=== PATIENT | male | born 1950 | race Caucasian/White ===

== ENCOUNTER → 2016-04-21 | Outpatient (CLI) | payer BC ==
--- NOTE | 2016-04-21 08:26 | XR ---
EXAMINATION TYPE: XR chest 2V DATE OF EXAM: 04/21/2016 7:24 AM COMPARISON: 03/02/2010 HISTORY: 66-year-old male cough and congestion for several days TECHNIQUE: Frontal and lateral views FINDINGS: The cardiomediastinal silhouette, aorta, and pulmonary vasculature are within normal limits. Slight p eribronchial cuffing centrally. Otherwise, lungs and pleural spaces are clear. IMPRESSION: Slight peribronchial cuffing may represent bronchitis or chronic asthma. Otherwise, no acute cardiopu lmonary process.
== END | disposition home or self-care (01) ==
LOC: RADXRMAIN 07:08
PROVIDERS: ATTEND Family Medicine
DX: J98.09 Other diseases of bronchus, not elsewhere classified (principal); R05 Cough
CPT/HCPCS: 71020

== ENCOUNTER → 2017-05-16 | Outpatient (CLI) | payer MEDICARE ==
--- NOTE | 2017-05-16 08:38 | US ---
EXAMINATION TYPE: US duplex aorta DATE OF EXAM: 05/16/2017 COMPARISON: NONE CLINICAL HISTORY: [id number] Screening for Abdominal aortic aneurysm; Controlled HTN per patient. EXAM MEASUREMENTS: Abdominal Aorta: Proximal: 2.0cm A/P Mid: 2.0cm A/P Distal: 1.9cm Transverse Bifurcation: 1.2cm Right CHOCO Transverse; 1.2cm Left CHOCO A/P Mild intimal thickening is noted in left Common Iliac Artery. Pulse Wave Doppler waveform is document ed in distal aorta. IMPRESSION: No sonographic evidence of abdominal aortic aneurysm. Minimal atherosclerosis of the left common iliac artery.
== END | disposition home or self-care (01) ==
LOC: RADUSWWP 06:55
PROVIDERS: ATTEND Family Medicine
DX: Z13.6 Encounter for screening for cardiovascular disorders (principal); Z87.891 Personal history of nicotine dependence
CPT/HCPCS: 93979

== ENCOUNTER 2020-03-21 01:52 | Emergency (ER) | payer MEDICARE ==
[2020-03-21 02:13] VITALS: TEMP 100.5
--- NOTE | 2020-03-21 02:47 | XR ---
EXAM: XR Chest, 2 Views CLINICAL HISTORY: ITS.REASON XR Reason: fever TECHNIQUE: Frontal and lateral views of the chest. COMPARISON: 04/21/2016. FINDINGS: Lungs: Unremarkable. No consolidation. Pleural space: Unremarkable. No pneumothorax. Heart: Unremarkable. No cardiomegaly. Mediastinum: Unremarkable. Bones/joints: Old right mid clavicular fracture deformity. IMPRESSION: No evidence of acute cardiopulmonary disease.
[2020-03-21 02:50] LABS: Basophils # (A) 0.1 k/uL (0-0.2); Basophils % (A) 1 %; Eosinophils # (A) 0.1 k/uL (0-0.7); Eosinophils % (A) 1 %; HCT 41.7 % (39.0-53.0); HGB 14.7 gm/dL (13.0-17.5); Lymphocytes # (A) 0.5 k/uL (1.0-4.8); Lymphocytes % (A) 5 %; MCH 32.5 pg (25.0-35.0); MCHC 35.1 g/dL (31.0-37.0); MCV 92.4 fL (80.0-100.0); Mean Platelet Volume 7.2; Monocytes # (A) 0.8 k/uL (0-1.0); Monocytes % (A) 9 %; Neutrophils # (A) 7.6 k/uL (1.3-7.7); Neutrophils % (A) 81 %; Platelet Count 146 k/uL (150-450); RBC 4.52 m/uL (4.30-5.90); WBC 9.3 k/uL (3.8-10.6)
[2020-03-21 03:03] LABS: Albumin 3.8 g/dL (3.5-5.0); Calcium 8.9 mg/dL (8.4-10.2); Total Bilirubin 0.8 mg/dL (0.2-1.3); Total Protein 6.4 g/dL (6.3-8.2)
[2020-03-21 03:14] LABS: Appearance,Urine Clear (Clear); Bilirubin,Urine Negative (Negative); Blood,Urine Small (Negative); Color,Urine Yellow; Glucose,Urine (UA) Negative (Negative); Ketones,Urine Trace (Negative); Leukocyte Esterase,Urine Negative (Negative); Mucus,Urine Rare /hpf; Nitrite,Urine Negative (Negative); PH, Urine 6.5 (5.0-8.0); Protein,Urine 1+ (Negative); RBC,Urine 2 /hpf (0-5); Specific Gravity,Urine 1.022 (1.001-1.035); WBC,Urine <1 /hpf (0-5)
[2020-03-21 03:25] VITALS: RESP 16
--- NOTE | 2020-03-21 03:36 | ED ---
Chest Pain HPI - General Chief Complaint: Chest Pain Stated Complaint: Chest Pain Time Seen by Provider: 03/21/20 02:17 Source: patient Mode of arrival: ambulatory Limitations: no limitations - History of Present Illness MD Complaint: chest pain Onset/Timin -: days(s) Onset: during rest Pain Location: substernal Pain Radiation: none Quality: dull Consistency: constant Improves With: nothing Worsens With: inspiration - Related Data Home Medications Medication Instructions Recorded Confirmed Acetaminophen/Diphenhydramine 1 tab PO HS 03/22/20 03/22/20 [Tylenol PM 500-25mg] Aspirin EC [Ecotrin Low Dose] 81 mg PO DAILY 03/22/20 03/22/20 Atorvastatin Calcium [Lipitor] 40 mg PO DAILY 03/22/20 03/22/20 Losartan Potassium [Cozaar] 100 mg PO DAILY 03/22/20 03/22/20 Omeprazole 40 mg PO DAILY 03/22/20 03/22/20 amLODIPine [Norvasc] 10 mg PO DAILY 03/22/20 03/22/20 Allergies Allergy/AdvReac Type Severity Reaction Status Date / Time No Known Allergies Allergy Verified 03/22/20 07:57 Review of Systems ROS Statement: Those systems with pertinent positive or pertinent negative responses have been documented in the HPI. ROS Other: All systems not noted in ROS Statement are negative. Constitutional: Denies: fever, chills Respiratory: Denies: cough, dyspnea Cardiovascular: Reports: chest pain. Denies: palpitations, orthopnea, edema, syncope Gastrointestinal: Denies: abdominal pain, nausea, vomiting Genitourinary: Denies: dysuria, hematuria Musculoskeletal: Denies: back pain Skin: Denies: rash Neurological: Denies: headache, weakness, numbness Past Medical History Past Medical History: Hyperlipidemia, Hypertension, Myocardial Infarction (CT) History of Any Multi-Drug Resistant Organisms: None Reported Past Surgical History: No Surgical Hx Reported Past Psychological History: No Psychological Hx Reported Smoking Status: Never smoker Past Alcohol Use History: None Reported Past Drug Use History: None Reported General Exam Limitations: no limitations General appearance: alert, in no apparent distress Head exam: Present: atraumatic, normocephalic Eye exam: Present: normal appearance. Absent: scleral icterus, conjunctival injection ENT exam: Present: normal oropharynx Neck exam: Present: normal inspection Respiratory exam: Present: normal lung sounds bilaterally. Absent: respiratory distress, wheezes, rales, rhonchi, stridor, chest wall tenderness Cardiovascular Exam: Present: regular rate, normal rhythm, normal heart sounds. Absent: systolic murmur, diastolic murmur, rubs, gallop GI/Abdominal exam: Present: soft. Absent: distended, tenderness, guarding, rebound, rigid, mass Extremities exam: Present: normal inspection, normal capillary refill. Absent: pedal edema, calf tenderness Back exam: Present: normal inspection. Absent: CVA tenderness (R), CVA tenderness (L) Neurological exam: Present: alert Skin exam: Present: warm, dry, intact, normal color. Absent: rash Course Vital Signs 03/21/20 03/21/20 03/21/20 02:06 03:24 03:49 Temperature 100.5 F H Pulse Rate 89 80 78 Respiratory 19 16 16 Rate Blood Pressure 168/80 146/73 137/74 O2 Sat by Pulse 95 97 98 Oximetry Chest Pain MDM - MDM This patient is 70-year-old man with fever and some chest tightness. I discussed admission for telemetry monitoring, serial cardiac enzymes, and cardiology consultation. I do suspect that given the duration of symptoms, the patient probably would have a positive troponin were this cardiac related but we discussed that this is impossible rule out with just the testing to this point. Discussed appropriate further care and follow-up. Patient does have stress test scheduled for April, and he will call Dr. Payne's office on Sunday to see if this can be moved up. Discussed appropriate coronavirus precautions. Disposition Clinical Impression: Chest pain, Fever Disposition: HOME SELF-CARE Condition: Good Instructions (If sedation given, give patient instructions): Chest Pain (ED), Fever in Adults (ED) Additional Instructions: As we discussed, maintain social distancing until receiving your test results. Return immediately if any of the symptoms discussed develop or if your worsening in anyway. Is patient prescribed a controlled substance at d/c from ED?: No Referrals: Robbie Paredes [Primary Care Provider] - 1-2 days Danish Payne MD [STAFF PHYSICIAN] - 1-2 days
[2020-03-21 03:51] VITALS: BP 137/74; PULSE 78
== END 2020-03-21 03:43 | disposition home or self-care (01) ==
LOC: EC 01:52
DX: R07.89 Other chest pain (principal); R50.9 Fever, unspecified; I10 Essential (primary) hypertension; E78.5 Hyperlipidemia, unspecified; I25.2 Old myocardial infarction; Z20.822 Contact with and (suspected) exposure to COVID-19; Z79.899 Other long term (current) drug therapy; Z79.82 Long term (current) use of aspirin
CPT/HCPCS: 36415; 93005; 80053; 83605; 84484; 85025; 81001; 87040; 71046; 99285; U0003; U0005

== ENCOUNTER 2020-03-22 07:06 | Inpatient (IN) | payer MEDICARE ==
[2020-03-22] MEDS ORDERED: SODIUM CHLORIDE 0.9% 1,000 ML IV STA (07:26)
[2020-03-22] MEDS ORDERED: NITROGLYCERIN SL TABS 0.4 MG TAB SUBLINGUAL STA (07:26)
[2020-03-22] MEDS ORDERED: ASPIRIN 81 MG PO STA (07:26)
--- NOTE | 2020-03-22 07:37 | ED ---
General Adult HPI - General Source: patient, RN notes reviewed Mode of arrival: ambulatory Limitations: no limitations <Joni Ramirez - Last Filed: 03/22/20 09:28> <Romero Westfall - Last Filed: 03/22/20 09:45> - General Chief complaint: Chest Pain Stated complaint: Chest Pain, ANDREY Time Seen by Provider: 03/22/20 07:15 - History of Present Illness Initial comments: Patient 70-year-old male presented to the emergency room today with a chief complaint of chest pain. Patient does admit that he woke up around midnight. He states she's been feeling a pressure-like pain middle of the chest radiating across. He states when he takes deep breath does feel like it increases. He states had some similar symptoms off and on over the last week was seen here in the emergency room yesterday for this. Patient denies any known contacts for covid 19. Patient denies any other complaints or symptoms currently. Patient denies any recent fever, chills, shortness of breath, back pain, abdominal pain, nausea or vomiting, numbness or tingling, dysuria or hematuria, constipation or diarrhea, headaches or visual changes, or any other complaints. (Joni Ramirez) - Related Data Home Medications Medication Instructions Recorded Confirmed Acetaminophen/Diphenhydramine 1 tab PO HS 03/22/20 03/22/20 [Tylenol PM 500-25mg] Aspirin EC [Ecotrin Low Dose] 81 mg PO DAILY 03/22/20 03/22/20 Atorvastatin Calcium [Lipitor] 40 mg PO DAILY 03/22/20 03/22/20 Losartan Potassium [Cozaar] 100 mg PO DAILY 03/22/20 03/22/20 Omeprazole 40 mg PO DAILY 03/22/20 03/22/20 amLODIPine [Norvasc] 10 mg PO DAILY 03/22/20 03/22/20 Allergies Allergy/AdvReac Type Severity Reaction Status Date / Time No Known Allergies Allergy Verified 03/22/20 07:57 Review of Systems ROS Other: All systems not noted in ROS Statement are negative. <Joni Ramirez - Last Filed: 03/22/20 09:28> ROS Other: All systems not noted in ROS Statement are negative. <Romero Westfall - Last Filed: 03/22/20 09:45> ROS Statement: Those systems with pertinent positive or pertinent negative responses have been documented in the HPI. Past Medical History Past Medical History: Hyperlipidemia, Hypertension, Myocardial Infarction (ND) History of Any Multi-Drug Resistant Organisms: None Reported Past Surgical History: No Surgical Hx Reported Past Psychological History: No Psychological Hx Reported Smoking Status: Never smoker Past Alcohol Use History: None Reported Past Drug Use History: None Reported <RamirezJoni - Last Filed: 03/22/20 09:28> General Exam Limitations: no limitations <RamirezJoni - Last Filed: 03/22/20 09:28> - General Exam Comments Initial Comments: General: The patient is awake and alert, in no distress, and does not appear acutely ill. Eye: extra-ocular movements are intact. There is normal conjunctiva bilaterally. No signs of icterus. Ears, nose, mouth and throat: There are moist mucous membranes and no oral lesions. Neck: The neck is supple, there is no tenderness or JVD. Cardiovascular: There is a regular rate and rhythm. No murmur, rub or gallop is appreciated. Respiratory: Lungs are clear to auscultation, respirations are non-labored, breath sounds are equal. No wheezes, stridor, rales, or rhonchi. Musculoskeletal: Normal ROM, no tenderness. Strength 5/5. Sensation intact. Neurological: A&O x 3. CN II-XII intact, There are no obvious motor or sensory deficits. Coordination appears grossly intact. Speech is normal. Skin: Skin is warm and dry and no rashes or lesions are noted. Psychiatric: Cooperative, appropriate mood & affect, normal judgment. (Joni Ramirez) Course <Romero Westfall - Last Filed: 03/22/20 09:45> Vital Signs 03/22/20 03/22/20 03/22/20 07:10 07:26 09:06 Temperature 100.0 F H Pulse Rate 92 81 Pulse Rate [ 87 Acid Supervisor ] Respiratory 18 16 Rate Blood Pressure 129/73 103/59 O2 Sat by Pulse 95 98 Oximetry - Reevaluation(s) Reevaluation #1: 03/22/20 09:44 PA supervision: I did personally do a [id number] evaluation patient did present with complaints of chest pain. The complaints that are more pleuritic. He had previously been seen here within the last day for similar complaints. He is noted have a low-grade temperature today. He does have an elevated white blood cell count with left shift. Initial viral testing is negative. I did discuss case with Dr. Reynolds. The patient will be (Romero Westfall) EKG Findings - EKG Comments: EKG Findings:: EKG performed: 719. Normal sinus rhythm at 87 bpm. RI interval 190. QRS 102. QT/QTc 350/421. No acute ST changes. <Joni Ramirez - Last Filed: 03/22/20 09:28> Medical Decision Making - Lab Data Result diagrams: 03/22/20 07:29 03/22/20 07:29 <Joni Ramirez - Last Filed: 03/22/20 09:28> - Lab Data Result diagrams: 03/22/20 07:29 03/22/20 07:29 <Romero Westfall - Last Filed: 03/22/20 09:45> - Medical Decision Making Patient reexamined at this time is resting comfortable. He does admit to relief after sublingual nitroglycerin. Patient's chest x-rays been reviewed unremarkable. He did have a CT of his chest as he had a mildly elevated d- dimer. CT of the chest is negative. Patient's troponin negative. Patient will be admitted for unstable angina and further evaluation with serial troponins. (Joni Ramirez) - Lab Data Lab Results 03/22/20 03/22/20 03/22/20 Range/Units 07:29 07:29 07:29 WBC 12.5 H (3.8-10.6) k/uL RBC 4.45 (4.30-5.90) m/uL Hgb 14.2 (13.0-17.5) gm/dL Hct 40.8 (39.0-53.0) % MCV 91.8 (80.0-100.0) fL MCH 32.0 (25.0-35.0) pg MCHC 34.8 (31.0-37.0) g/dL RDW 12.8 (11.5-15.5) % Plt Count 153 (150-450) k/uL MPV 7.6 Neutrophils % 88 % Lymphocytes % 2 % Monocytes % 6 % Eosinophils % 1 % Basophils % 1 % Neutrophils # 11.1 H (1.3-7.7) k/uL Lymphocytes # 0.3 L (1.0-4.8) k/uL Monocytes # 0.7 (0-1.0) k/uL Eosinophils # 0.2 (0-0.7) k/uL Basophils # 0.1 (0-0.2) k/uL PT 12.3 H (9.0-12.0) sec INR 1.2 H (<1.2) APTT 25.1 (22.0-30.0) sec D-Dimer 1.43 H (<0.60) mg/L FEU Sodium 131 L (137-145) mmol/L Potassium 3.7 (3.5-5.1) mmol/L Chloride 101 (98-107) mmol/L Carbon Dioxide 21 L (22-30) mmol/L Anion Gap 9 mmol/L BUN 18 (9-20) mg/dL Creatinine 1.04 (0.66-1.25) mg/dL Est GFR (CKD-EPI)AfAm 85 (>60 ml/min/1.73 sqM) Est GFR (CKD-EPI)NonAf 74 (>60 ml/min/1.73 sqM) Glucose 130 H (74-99) mg/dL Calcium 8.6 (8.4-10.2) mg/dL Magnesium 1.5 L (1.6-2.3) mg/dL Total Bilirubin 1.1 (0.2-1.3) mg/dL AST 49 (17-59) U/L ALT 81 H (4-49) U/L Alkaline Phosphatase 167 H (38-126) U/L Troponin I (0.000-0.034) ng/mL Total Protein 6.5 (6.3-8.2) g/dL Albumin 3.7 (3.5-5.0) g/dL Urine Color Urine Appearance (Clear) Urine pH (5.0-8.0) Ur Specific [place] (1.001-1.035) Urine Protein (Negative) Urine Glucose (UA) (Negative) Urine Ketones (Negative) Urine Blood (Negative) Urine Nitrite (Negative) Urine Bilirubin (Negative) Urine Urobilinogen (<2.0) mg/dL Ur Leukocyte Esterase (Negative) Urine RBC (0-5) /hpf Urine WBC (0-5) /hpf Ur Squamous Epith Cells (0-4) /hpf Urine Mucus (None) /hpf Coronavirus (PCR) (Not Detectd) 03/22/20 03/22/20 03/22/20 Range/Units 07:29 07:33 08:16 WBC (3.8-10.6) k/uL RBC (4.30-5.90) m/uL Hgb (13.0-17.5) gm/dL Hct (39.0-53.0) % MCV (80.0-100.0) fL MCH (25.0-35.0) pg MCHC (31.0-37.0) g/dL RDW (11.5-15.5) % Plt Count (150-450) k/uL MPV Neutrophils % % Lymphocytes % % Monocytes % % Eosinophils % % Basophils % % Neutrophils # (1.3-7.7) k/uL Lymphocytes # (1.0-4.8) k/uL Monocytes # (0-1.0) k/uL Eosinophils # (0-0.7) k/uL Basophils # (0-0.2) k/uL PT (9.0-12.0) sec INR (<1.2) APTT (22.0-30.0) sec D-Dimer (<0.60) mg/L FEU Sodium (137-145) mmol/L Potassium (3.5-5.1) mmol/L Chloride (98-107) mmol/L Carbon Dioxide (22-30) mmol/L Anion Gap mmol/L BUN (9-20) mg/dL Creatinine (0.66-1.25) mg/dL Est GFR (CKD-EPI)AfAm (>60 ml/min/1.73 sqM) Est GFR (CKD-EPI)NonAf (>60 ml/min/1.73 sqM) Glucose (74-99) mg/dL Calcium (8.4-10.2) mg/dL Magnesium (1.6-2.3) mg/dL Total Bilirubin (0.2-1.3) mg/dL AST (17-59) U/L ALT (4-49) U/L Alkaline Phosphatase (38-126) U/L Troponin I 0.024 (0.000-0.034) ng/mL Total Protein (6.3-8.2) g/dL Albumin (3.5-5.0) g/dL Urine Color Yellow Urine Appearance Clear (Clear) Urine pH 6.0 (5.0-8.0) Ur Specific [place] 1.023 (1.001-1.035) Urine Protein 1+ H (Negative) Urine Glucose (UA) Negative (Negative) Urine Ketones 1+ H (Negative) Urine Blood Small H (Negative) Urine Nitrite Negative (Negative) Urine Bilirubin Negative (Negative) Urine Urobilinogen 2.0 (<2.0) mg/dL Ur Leukocyte Esterase Negative (Negative) Urine RBC 1 (0-5) /hpf Urine WBC 1 (0-5) /hpf Ur Squamous Epith Cells <1 (0-4) /hpf Urine Mucus Rare H (None) /hpf Coronavirus (PCR) Not Detected (Not Detectd) Disposition Is patient prescribed a controlled substance at d/c from ED?: No Time of Disposition: 09:30 <Joni Ramirez - Last Filed: 03/22/20 09:28> <Romero Westfall - Last Filed: 03/22/20 09:45> Clinical Impression: Unstable angina Disposition: ADMITTED IP TO THIS HOSP Condition: Stable Referrals: Robbie Paredes [Primary Care Provider] - 1-2 days
[2020-03-22 07:38] LABS: Basophils # (A) 0.1 k/uL (0-0.2); Basophils % (A) 1 %; Eosinophils # (A) 0.2 k/uL (0-0.7); Eosinophils % (A) 1 %; HCT 40.8 % (39.0-53.0); HGB 14.2 gm/dL (13.0-17.5); Lymphocytes # (A) 0.3 k/uL (1.0-4.8); Lymphocytes % (A) 2 %; MCHC 34.8 g/dL (31.0-37.0); MCV 91.8 fL (80.0-100.0); Mean Platelet Volume 7.6; Monocytes # (A) 0.7 k/uL (0-1.0); Monocytes % (A) 6 %; Neutrophils # (A) 11.1 k/uL (1.3-7.7); Neutrophils % (A) 88 %; Platelet Count 153 k/uL (150-450); RBC 4.45 m/uL (4.30-5.90); RDW 12.8 % (11.5-15.5); WBC 12.5 k/uL (3.8-10.6)
[2020-03-22 07:48] LABS: Albumin 3.7 g/dL (3.5-5.0); Calcium 8.6 mg/dL (8.4-10.2); Magnesium 1.5 mg/dL (1.6-2.3); Potassium 3.7 mmol/L (3.5-5.1); Total Bilirubin 1.1 mg/dL (0.2-1.3); Total Protein 6.5 g/dL (6.3-8.2)
[2020-03-22 08:00] LABS: INR 1.2 (<1.2); Partial Thromboplastin Time 25.1 sec (22.0-30.0); Prothrombin Time 12.3 sec (9.0-12.0)
--- NOTE | 2020-03-22 08:01 | XR ---
EXAMINATION TYPE: XR chest 1V portable DATE OF EXAM: 03/22/2020 Comparison: 03/21/2020 Clinical History: 70-year-old male chest pain Findings: Heart upper limits of normal in size. Aorta and pulmonary vasculature within normal limits. No consol idation or pleural effusion. Hazy lung densities relating to overlying soft tissue. Possible old heal ed fracture deformity right mid clavicular shaft. Impression: No definite acute cardiopulmonary process.
[2020-03-22 08:07] LABS: D-Dimer 1.43 mg/L FEU (<0.60)
[2020-03-22 08:27] LABS: Appearance,Urine Clear (Clear); Bilirubin,Urine Negative (Negative); Blood,Urine Small (Negative); Color,Urine Yellow; Glucose,Urine (UA) Negative (Negative); Ketones,Urine 1+ (Negative); Leukocyte Esterase,Urine Negative (Negative); Mucus,Urine Rare /hpf; Nitrite,Urine Negative (Negative); Protein,Urine 1+ (Negative); RBC,Urine 1 /hpf (0-5); Specific Gravity,Urine 1.023 (1.001-1.035); Squamous Epithelial Cell,Urine <1 /hpf (0-4); WBC,Urine 1 /hpf (0-5)
--- NOTE | 2020-03-22 08:57 | CT ---
EXAMINATION TYPE: CT angio chest DATE OF EXAM: 03/22/2020 COMPARISON: None HISTORY: PE, SOB, Chest pain CT DLP: 438.1 mGycm CONTRAST: CT chest with contrast and 3D reconstruction with MIP imaging is performed without and with IV Contra st, patient injected with 100 ml mL of Isovue 370. Contrast-enhanced CT of the chest was performed through the course of the pulmonary arteries with vito g and mediastinal window settings submitted. 3D reconstruction with MIP imaging was also performed. PULMONARY ARTERIES: The pulmonary arteries and their major tributaries are patent. I do not see fred dence for sizable filling defect to suggest pulmonary embolic process. LUNGS: The lungs are clear and free of infiltrate. Left basilar atelectasis mild in degree. No pulmon queenie nodule or mass is detected. No pleural effusion. MEDIASTINUM: Thoracic aorta is of normal caliber,however, evaluation is limited given timing of the contrast bolus. If there is concern for thoracic aortic pathology consider RAMAN. Correlate clinicall y . The heart is not enlarged. No evidence for mediastinal mass. No mediastinal lymph nodes greater than 1cm. HILAR STRUCTURES: No evidence for mass. No hilar lymph nodes greater than 1 cm. UPPER ABDOMEN: Small sliding-type hiatal hernia. Small gallstones identified. IMPRESSION: 1. No evidence for Pulmonary embolism at this time.
[2020-03-22] MEDS ORDERED: NITROGLYCERIN SL TABS 0.4 MG TAB SUBLINGUAL PRN (09:34)
[2020-03-22] MEDS ORDERED: NON FORMULARY DRUG (Aspirin Ec 81 MG Tablet.Dr) PO SCH (11:00)
[2020-03-22] MEDS: PANTOPRAZOLE 40 MG TABLET PO SCH (11:27)
[2020-03-22] MEDS ORDERED: ONDANSETRON 4 MG/2 ML VIAL IVP PRN (11:45)
[2020-03-22] MEDS ORDERED: NALOXONE 0.4 MG/ML 1 ML VIAL IV PRN (11:45)
--- NOTE | 2020-03-22 12:20 | P.CRDCN ---
History of Present Illness Consult date: 03/22/20 History of present illness: CHIEF COMPLAINT: Chest pain HISTORY OF PRESENT ILLNESS: This is a 70-year-old male with a past medical history significant for hypertension, hyperlipidemia, and former nicotine dependence. Patient follows in the office with Dr. Payne. We have been asked to see the patient in consultation for chest pain. Patient examined at the bedside. Patient states he has been having chest pain on and off for the past week. The patient was also evaluated yesterday 03/21/2020 in the emergency room for chest pain. He was discharged home from the emergency room in stable condition. Patient states last week he was hunting and shot a coyote. He states he had to drag the coyote about 3/4 of a mile with his left arm while he had approximately 20 pounds of gear in his backpack. He states this is normal h unting gear that he carries every time and was not heavier than usual. He states the distance that he walked was not unusual for him either. He states he began to have some chest tightness while he was walking which resolved once he was at rest. He states over the following week he has been experiencing bilateral chest discomfort with deep inspiration. He states he does not have any pain when he is breathing normally. He denies any radiation of the pain. He denies any shortness of breath. Denies dizziness or lightheadedness. Denies nausea or vomiting. He states the pain is not worse with movement. He denies having any discomfort with chest wall palpation. DIAGNOSTICS: EKG reveals sinus mechanism with no signs of acute ischemia Chest xray negative for acute process Chest CTA: Negative for pulmonary emboli Laboratory data: WBC 12.5. Hemoglobin 14.2. Platelet count 153. Neutrophil count 11.1. D-dimer 1.43. Sodium 131. Potassium 3.7. BUN 18. Creatinine 1.04. Magnesium 1.5. Troponin negative 2. Current home cardiac medications include aspirin 81 mg daily, Norvasc 10 mg daily, losartan 100 mg daily, Lipitor 40 mg daily REVIEW OF SYSTEMS: At the time of my exam: CONSTITUTIONAL: Denies fever or chills. HEENT: Denies blurred vision, vision changes, or eye pain. Denies hemoptysis CARDIOVASCULAR: Reports chest pain with deep inspiration. Denies orthopnea, PND or palpitations RESPIRATORY: No shortness of breath. GASTROINTESTINAL: Denies abdominal pain. Denies nausea or vomiting. HEMATOLOGIC: Denies bleeding disorders. GENITOURINARY: Denies any blood in urine. SKIN: Denies pruitis. Denies rash. PHYSICAL EXAM: VITAL SIGNS: Reviewed. GENERAL: Well-developed in no acute distress. HEENT: Head is normocephalic. Pupils are equal, round. Sclerae anicteric. Mucous membranes of the mouth are moist. Neck supple. No JVD or thyromegaly LUNGS: Respirations even and unlabored. Lungs essentially clear to auscultation bilaterally. HEART: Regular rate and rhythm. S1 and S2 heard. No chest wall tenderness with palpation. ABDOMEN: Soft. Nondistended. Nontender. EXTREMITIES: Normal range of motion. No clubbing or cyanosis. Peripheral pulses intact. No lower extremity edema NEUROLOGIC: Awake and alert. Oriented x 3. ASSESSMENT: Chest pain, atypical, appears pleuritic in nature Leukocytosis with fever, rule out infectious process Elevated d-dimer, CT negative for PE Hypertension Hyperlipidemia Former nicotine dependence Hypomagnesemia Hyponatremia PLAN: An acute coronary event has been ruled out Further workup of leukocytosis and fever per internal medicine Decrease aspirin to 81mg Resume home cardiac medications Continue to trend troponins Obtain 2D echo to assess cardiac structure and function Replace magnesium Further recommendations pending patient course Nurse practitioner note has been reviewed by physician. Signing provider agrees with the documented findings, assessment, and plan of care. Past Medical History Past Medical History: GERD/Reflux, Hyperlipidemia, Hypertension, Myocardial Infarction (HI), Renal Disease Additional Past Medical History / Comment(s): Mild HI per EKG, lower back pain/2 herniated discs and vertebrae cracked, cervical pain since diving injury, pt has passed renal stones. Last Myocardial Infarction Date:: unkn History of Any Multi-Drug Resistant Organisms: None Reported Past Surgical History: Orthopedic Surgery Additional Past Surgical History / Comment(s): L knee arthroscopy, colonoscopy Past Anesthesia/Blood Transfusion Reactions: No Reported Reaction Smoking Status: Former smoker - Past Family History Father Family Medical History: Liver Disease Additional Family Medical History / Comment(s): Father of liver cirrhosis. Mother Family Medical History: Cancer Additional Family Medical History / Comment(s): Mother of lung cancer. She was a smoker. Brother(s) Family Medical History: Coronary Artery Disease (CAD) Additional Family Medical History / Comment(s): Brother had a HI at the age of 46 yrs. Medications and Allergies Home Medications Medication Instructions Recorded Confirmed Type Acetaminophen/Diphenhydramine 1 tab PO HS 03/22/20 03/22/20 History [Tylenol PM 500-25mg] Aspirin EC [Ecotrin Low Dose] 81 mg PO DAILY 03/22/20 03/22/20 History Atorvastatin Calcium [Lipitor] 40 mg PO DAILY 03/22/20 03/22/20 History Losartan Potassium [Cozaar] 100 mg PO DAILY 03/22/20 03/22/20 History Omeprazole 40 mg PO DAILY 03/22/20 03/22/20 History amLODIPine [Norvasc] 10 mg PO DAILY 03/22/20 03/22/20 History Allergies Allergy/AdvReac Type Severity Reaction Status Date / Time No Known Allergies Allergy Verified 03/22/20 07:57 Physical Exam Vitals: Vital Signs Temp Pulse Pulse Resp BP BP Pulse Ox 03/22/20 11:03 100.4 F H 88 16 135/75 96 03/22/20 10:33 98.6 F 84 16 107/62 98 03/22/20 09:06 81 16 103/59 98 03/22/20 07:26 87 03/22/20 07:10 100.0 F H 92 18 129/73 95 Intake and Output 03/21/20 03/22/20 03/22/20 22:59 06:59 14:59 Other: Weight 95.254 kg Results 03/22/20 07:29 03/22/20 07:29 Cardiac Enzymes 03/22/20 03/22/20 03/22/20 Range/Units 07:29 07:29 10:41 AST 49 (17-59) U/L Troponin I 0.024 0.019 (0.000-0.034) ng/mL Coagulation 03/22/20 Range/Units 07:29 PT 12.3 H (9.0-12.0) sec APTT 25.1 (22.0-30.0) sec CBC 03/22/20 Range/Units 07:29 WBC 12.5 H (3.8-10.6) k/uL RBC 4.45 (4.30-5.90) m/uL Hgb 14.2 (13.0-17.5) gm/dL Hct 40.8 (39.0-53.0) % Plt Count 153 (150-450) k/uL Comprehensive Metabolic Panel 03/22/20 Range/Units 07:29 Sodium 131 L (137-145) mmol/L Potassium 3.7 (3.5-5.1) mmol/L Chloride 101 (98-107) mmol/L Carbon Dioxide 21 L (22-30) mmol/L BUN 18 (9-20) mg/dL Creatinine 1.04 (0.66-1.25) mg/dL Glucose 130 H (74-99) mg/dL Calcium 8.6 (8.4-10.2) mg/dL AST 49 (17-59) U/L ALT 81 H (4-49) U/L Alkaline Phosphatase 167 H (38-126) U/L Total Protein 6.5 (6.3-8.2) g/dL Albumin 3.7 (3.5-5.0) g/dL Current Medications Generic Name Dose Route Start Last Admin Trade Name Freq PRN Reason Stop Dose Admin Acetaminophen 650 mg 03/22/20 11:45 Acetaminophen Tab 325 Mg Tab PO Q6HR PRN Mild Pain or Fever > 100.5 Hydrocodone Bitart/Acetaminophen 1 each 03/22/20 11:45 Hydrocodone/Apap 5-325mg 1 Each Tab PO Q4HR PRN Moderate to Severe Pain Amlodipine Besylate 10 mg 03/22/20 11:00 Amlodipine 10 Mg Tab PO DAILY [facility] Aspirin 81 mg 03/23/20 09:00 Aspirin 81 Mg PO DAILY [facility] Atorvastatin Calcium 40 mg 03/22/20 11:00 Atorvastatin 40 Mg Tab PO DAILY [facility] Enoxaparin Sodium 40 mg 03/23/20 09:00 Enoxaparin 40 Mg/0.4 Ml Syringe SQ DAILY ADAM Sodium Chloride 1,000 mls @ 75 mls/hr 03/22/20 07:26 03/22/20 07:31 Saline 0.9% IV 03/22/20 20:45 75 mls/hr .[id number] STA Administration Magnesium Sulfate/Dextrose 1 100 mls @ 100 mls/hr 03/22/20 11:30 gm/ IV Solution IVPB 03/22/20 14:29 Q1H ADAM Sodium Chloride 1,000 mls @ 75 mls/hr 03/22/20 11:45 Saline 0.9% IV .[id number] [facility] Losartan Potassium 100 mg 03/22/20 11:00 Losartan 50 Mg Tab PO DAILY [facility] Melatonin 3 mg 03/22/20 11:45 Melatonin 3 Mg Tablet PO HS PRN Insomnia Naloxone HCl 0.2 mg 03/22/20 11:45 Naloxone 0.4 Mg/Ml 1 Ml Vial IV Q2M PRN Opioid Reversal Nitroglycerin 0.4 mg 03/22/20 09:34 Nitroglycerin Sl Tabs 0.4 Mg Tab SUBLINGUAL Q5M PRN Chest Pain Ondansetron HCl 4 mg 03/22/20 11:45 Ondansetron 4 Mg/2 Ml Vial IVP Q8HR PRN Nausea And Vomiting Pantoprazole Sodium 40 mg 03/22/20 11:00 03/22/20 11:27 Pantoprazole 40 Mg Tablet PO 40 mg DAILY [facility] Administration Intake and Output 03/21/20 03/22/20 03/22/20 22:59 06:59 14:59 Other: Weight 95.254 kg Patient Weight 03/23/20 06:59 Weight 95.254 kg 03/22/20 07:29 03/22/20 07:29
--- NOTE | 2020-03-22 12:26 | P.HPIM ---
<Paolo Galloway - Last Filed: 03/22/20 12:44> History of Present Illness H&P Date: 03/22/20 Chief Complaint: Chest pain History of presenting illness: Patient is a 70-year-old male with a past medical history including CAD, hypertension, hyperlipidemia, and GERD. Patient presenting [facility] with a chief complaint of chest pain. Patient reports he has been having chest pain with inspiration across his left and right anterior chest a ccompanied by a dry cough, fever, chills, and diaphoresis 1 week. Patient reports he was out coyote hunting when this began and the symptoms have progressively worsened with an elevated fever at home reported as high as 102F. He states left and right anterior chest pain with inspiration is sharp and nonradiating and is rated as high as 7 out of 10. This pain is not reproducible with movement or palpation, only upon inspiration. Patient denies having any headache, lightheadedness, dizziness, changes in vision or hearing, nasal congestion or postnasal drainage, sore throat, dysphagia, shortness of breath, dyspnea with exertion, palpitations, abdominal pain, nausea, vomiting, changes in appetite, recent weight loss or weight gain, changes or difficulties with urinary or bowel function, or noticing any numbness/tingling/weakness/swelling/pain in extremities. ED course: Patient was seen and fully evaluated in the emergency department resulting in admission to general medical observation unit for continuous close medical management. Labs: Covid, influenza, and urinalysis negative. CBC revealed mild leukocytosis with WBC count of 12.5. D-dimer elevated at 1.43. BMP revealing mild hyponatremia with sodium of 131. Hypomagnesemia with magnesium of 1.5. Liver profile revealing transaminitis with AST of 81 and alkaline phosphatase of 167. Imaging: Chest x-ray negative for acute cardiopulmonary process. CT PE negative for pulmonary emboli. Medications administered in ED include aspirin 324 mg and nitroglycerin 0.4 mg sublingual tablet 1 dose Assessment: Review of systems: Pertinent positives and negatives as discussed in HPI, a complete review of systems was performed and all other systems are negative. Physical exam: General: non toxic, no distress, appears at stated age Derm: warm, dry Head: atraumatic, normocephalic, symmetric Eyes: EOMI, no lid lag, anicteric sclera Mouth: no lip lesion, mucus membranes moist, no erythema to posterior pharynx Cardiovascular: S1S2 reg, no murmur, positive posterior tibial pulses bilaterally, cap refill less than 2 seconds. Lungs: Respirations even, regular, and unlabored on 2 L O2 via nasal cannula with SpO2 of 96%. CTA bilaterally, no rhonchi, no rales, no wheezing and no accessory muscle use Abdominal: soft, nontender to palpation, no guarding, no appreciable organomegaly Ext: no gross muscle atrophy, no edema, no contractures Neuro: CN II-XI grossly intact, no focal neuro deficits Psych: Alert, oriented, appropriate affect Plan of care: Chest pain, pleurisy with cough -Covid, influenza, chest x-ray, and CT PE negative. -Patient with mild leukocytosis with WBC count of 12.5, will obtain blood cultu res and pro-calcitonin. -Patient to be provided with oxygenation as needed to maintain SpO2 equal to or greater than 92%. -Telemetry monitoring -Symptomatic care and pain management -Incentive spirometry 10-15 times per hour while awake. -Tessalon Perles as needed for cough -Trend troponins every 3 hours 2. -Pro-BMP -EKG when necessary for chest pain -Echocardiogram -Cardiology consult Fever with leukocytosis -COVID, Influenza, urinalysis, and CXR negative. -Pro-calcitonin and blood culture to be obtained. -LDH, ferritin, and CRP to be obtained. -Symptomatic treatment, Tylenol as needed for fever/mild pain. -Continue close monitoring with repeat a.m. labs. Transaminitis -Suspect elevated secondary to above etiologies. -Transaminitis with ALT 81 and a alkaline phosphatase of 167 -Caution with hepatotoxic medications. -If patient becomes symptomatic experiencing any abdominal pain/discomfort, nausea, or vomiting may consider further workup such as CT and/or ultrasound. -Monitor closely with repeat a.m. labs. Hypomagnesemia -Hypomagnesemia with magnesium 1.5. -Magnesium being replaced and we will continue to monitor with repeat a.m. labs. Hyponatremia, likely secondary to mild dehydration -Hyponatremia with sodium of 131. -Patient to be provided with gentle hydration with 0.9% normal saline at 75 mg per hour. GERD -Continue daily home medication regimen with Protonix 40 mg each morning. Hypertension -Monitor vital signs and continue daily medication management with losartan and amlodipine. Hyperlipidemia -Continue daily medication management with atorvastatin 40 mg nightly. -Heart healthy diet. The patient is placed in observation with an anticipated less than 2 midnight stay for evaluation of his chest pain with pleurisy and fever with leukocytosis. CODE STATUS: Full code with DO NOT INTUBATE DVT prophylaxis: Lovenox Discussed with: Patient and RN Anticipated discharge date: 2-[address]: Home A total of 60 minutes was spent on the care of this complex patient more than 50% of the time was spent in counseling and care coordination. Past Medical History Past Medical History: GERD/Reflux, Hyperlipidemia, Hypertension, Myocardial Infarction (MD), Renal Disease Additional Past Medical History / Comment(s): Mild MD per EKG, lower back pain/2 herniated discs and vertebrae cracked, cervical pain since diving injury, pt has passed renal stones. Last Myocardial Infarction Date:: unkn History of Any Multi-Drug Resistant Organisms: None Reported Past Surgical History: Orthopedic Surgery Additional Past Surgical History / Comment(s): L knee arthroscopy, colonoscopy Past Anesthesia/Blood Transfusion Reactions: No Reported Reaction Smoking Status: Former smoker - Past Family History Father Family Medical History: Liver Disease Additional Family Medical History / Comment(s): Father of liver cirrhosis. Mother Family Medical History: Cancer Additional Family Medical History / Comment(s): Mother of lung cancer. She was a smoker. Brother(s) Family Medical History: Coronary Artery Disease (CAD) Additional Family Medical History / Comment(s): Brother had a MD at the age of 46 yrs. Medications and Allergies Home Medications Medication Instructions Recorded Confirmed Type Acetaminophen/Diphenhydramine 1 tab PO HS 03/22/20 03/22/20 History [Tylenol PM 500-25mg] Aspirin EC [Ecotrin Low Dose] 81 mg PO DAILY 03/22/20 03/22/20 History Atorvastatin Calcium [Lipitor] 40 mg PO DAILY 03/22/20 03/22/20 History Losartan Potassium [Cozaar] 100 mg PO DAILY 03/22/20 03/22/20 History Omeprazole 40 mg PO DAILY 03/22/20 03/22/20 History amLODIPine [Norvasc] 10 mg PO DAILY 03/22/20 03/22/20 History Allergies Allergy/AdvReac Type Severity Reaction Status Date / Time No Known Allergies Allergy Verified 03/22/20 07:57 Physical Exam Vitals: Vital Signs Temp Pulse Pulse Resp BP BP Pulse Ox 03/22/20 11:03 100.4 F H 88 16 135/75 96 03/22/20 10:33 98.6 F 84 16 107/62 98 03/22/20 09:06 81 16 103/59 98 03/22/20 07:26 87 03/22/20 07:10 100.0 F H 92 18 129/73 95 Intake and Output 03/21/20 03/22/20 03/22/20 22:59 06:59 14:59 Other: Weight 95.254 kg Results CBC & Chem 7: 03/22/20 07:29 03/22/20 07:29 Labs: Abnormal Lab Results - Last 24 Hours (Table) 03/22/20 03/22/20 03/22/20 Range/Units 07:29 07:29 07:29 WBC 12.5 H (3.8-10.6) k/uL Neutrophils # 11.1 H (1.3-7.7) k/uL Lymphocytes # 0.3 L (1.0-4.8) k/uL PT 12.3 H (9.0-12.0) sec INR 1.2 H (<1.2) D-Dimer 1.43 H (<0.60) mg/L FEU Sodium 131 L (137-145) mmol/L Carbon Dioxide 21 L (22-30) mmol/L Glucose 130 H (74-99) mg/dL Magnesium 1.5 L (1.6-2.3) mg/dL ALT 81 H (4-49) U/L Alkaline Phosphatase 167 H (38-126) U/L Urine Protein (Negative) Urine Ketones (Negative) Urine Blood (Negative) Urine Mucus (None) /hpf 03/22/20 Range/Units 08:16 WBC (3.8-10.6) k/uL Neutrophils # (1.3-7.7) k/uL Lymphocytes # (1.0-4.8) k/uL PT (9.0-12.0) sec INR (<1.2) D-Dimer (<0.60) mg/L FEU Sodium (137-145) mmol/L Carbon Dioxide (22-30) mmol/L Glucose (74-99) mg/dL Magnesium (1.6-2.3) mg/dL ALT (4-49) U/L Alkaline Phosphatase (38-126) U/L Urine Protein 1+ H (Negative) Urine Ketones 1+ H (Negative) Urine Blood Small H (Negative) Urine Mucus Rare H (None) /hpf Thrombosis Risk Factor Assmnt - Choose All That Apply Any of the Below Risk Factors Present?: Yes Each Factor Represents 1 point: Obesity (BMI >25) Other Risk Factors: Yes Each Risk Factor Represents 2 Points: Age 61-74 years Other congenital or acquired thrombophilia - If yes, enter type in comment: No Thrombosis Risk Factor Assessment Total Risk Factor Score: 3 Thrombosis Risk Factor Assessment Level: Moderate Risk <Maggie Jarquin - Last Filed: 03/22/20 12:48> History of Present Illness Patient seen and examined independently. Patient was also seen by Paolo Galloway NP and case was discussed. I am in agreement with subjective, physical exam, assessment and plan as written above and amended below. Patient seen and examined at bedside. Still with chest pain with deep inspiration, no shortness of breath. No nausea or vomiting. All questions answered, aware that COVID is not ruled out and further testing is necessary. General: ill appearing, no distress, appears at stated age Derm: warm, dry Head: atraumatic, normocephalic, symmetric Eyes: EOMI, no lid lag, anicteric sclera Mouth: no lip lesion, mucus membranes dry Cardiovascular: S1S2 reg, no murmur, positive posterior tibial pulse bilateral, Lungs: Ronchi bilateral , no accessory muscle use Ext: no gross muscle atrophy, no edema, no contractures Psych: Alert, oriented, appropriate affect Physical Exam Osteopathic Statement: *. No significant issues noted on an osteopathic structural exam other than those noted in the History and Physical/Consult. Vitals: Vital Signs Temp Pulse Pulse Resp BP BP Pulse Ox 03/22/20 12:20 98.5 F 03/22/20 11:03 100.4 F H 88 16 135/75 96 03/22/20 10:33 98.6 F 84 16 107/62 98 03/22/20 09:06 81 16 103/59 98 03/22/20 07:26 87 03/22/20 07:10 100.0 F H 92 18 129/73 95 Intake and Output 03/21/20 03/22/20 03/22/20 22:59 06:59 14:59 Other: Weight 95.254 kg Results CBC & Chem 7: 03/22/20 07:29 03/22/20 07:29 Labs: Abnormal Lab Results - Last 24 Hours (Table) 03/22/20 03/22/20 03/22/20 Range/Units 07:29 07:29 07:29 WBC 12.5 H (3.8-10.6) k/uL Neutrophils # 11.1 H (1.3-7.7) k/uL Lymphocytes # 0.3 L (1.0-4.8) k/uL PT 12.3 H (9.0-12.0) sec INR 1.2 H (<1.2) D-Dimer 1.43 H (<0.60) mg/L FEU Sodium 131 L (137-145) mmol/L Carbon Dioxide 21 L (22-30) mmol/L Glucose 130 H (74-99) mg/dL Magnesium 1.5 L (1.6-2.3) mg/dL ALT 81 H (4-49) U/L Alkaline Phosphatase 167 H (38-126) U/L C-Reactive Protein (<10.0) mg/L Urine Protein (Negative) Urine Ketones (Negative) Urine Blood (Negative) Urine Mucus (None) /hpf 03/22/20 03/22/20 Range/Units 07:29 08:16 WBC (3.8-10.6) k/uL Neutrophils # (1.3-7.7) k/uL Lymphocytes # (1.0-4.8) k/uL PT (9.0-12.0) sec INR (<1.2) D-Dimer (<0.60) mg/L FEU Sodium (137-145) mmol/L Carbon Dioxide (22-30) mmol/L Glucose (74-99) mg/dL Magnesium (1.6-2.3) mg/dL ALT (4-49) U/L Alkaline Phosphatase (38-126) U/L C-Reactive Protein 186.2 H (<10.0) mg/L Urine Protein 1+ H (Negative) Urine Ketones 1+ H (Negative) Urine Blood Small H (Negative) Urine Mucus Rare H (None) /hpf
[2020-03-22 12:40] LABS: C Reactive Protein 186.2 mg/L (<10.0)
--- NOTE | 2020-03-22 13:13 | ECHOF ---
Referral Reason:LV function, chest pain MEASUREMENTS -------- HEIGHT: 172.7 cm WEIGHT: 95.3 kg BP: RVIDd: 2.9 cm (< 3.3) IVSd: 1.0 cm (0.6 - 1.1) LVIDd: 4.8 cm (3.9 - 5.3) LVPWd: 1.3 cm (0.6 - 1.1) IVSs: 1.4 cm LVIDs: 3.1 cm LVPWs: 1.1 cm LA Diam: 4.0 cm (2.7 - 3.8) LAESV Index (A-L): 25.80 ml/m Ao Diam: 2.8 cm (2.0 - 3.7) AV Cusp: 1.8 cm (1.5 - 2.6) MV EXCURSION: 20.130 mm (> 18.000) MV EF SLOPE: 120 mm/s (70 - 150) EPSS: 0.4 cm MV E Kike: 1.06 m/s MV DecT: 183 ms MV A Kike: 0.98 m/s MV E/A Ratio: 1.09 RAP: 5.00 mmHg RVSP: 37.92 mmHg FINDINGS -------- Sinus rhythm. This was a technically adequate study. LV size, wall thickness and systolic function are normal, with an EF greater than 55%. The left sasha tricular size is normal. The diastolic filling pattern is normal for the age of the patient 15.08. The right ventricle is normal in size. Normal LA size by volume 22+/-6 ml/m2. The right atrial size is normal. There is mild aortic valve sclerosis. There is no evidence of aortic regurgitation. Mild mitral annular calcification present. Mild mitral regurgitation is present. The tricuspid valve appears structurally normal. Mild tricuspid regurgitation present. There is m ild pulmonary hypertension. The right ventricular systolic pressure, as measured by Doppler, is 37. 92mmHg. There is no pulmonic regurgitation present. The aortic root size is normal. There is no pericardial effusion. CONCLUSIONS -------- 1. LV size, wall thickness and systolic function are normal, with an EF greater than 55%. 2. Normal LA size by volume 22+/-6 ml/m2. 3. There is mild aortic valve sclerosis. 4. Mild mitral regurgitation is present. 5. Mild tricuspid regurgitation present. 6. There is mild pulmonary hypertension. 7. There is no pericardial effusion. [employer]ATIONS MANAGER: Lizz Vazquez RDCS
[2020-03-22] MEDS: MAGNESIUM SULFATE-D5W PMX 1 GM in DEXTROSE/WATER 1 100ML.BAG IVPB SCH ×3 (13:26→16:48)
[2020-03-22] MEDS: ATORVASTATIN 40 MG TAB PO SCH (13:26)
[2020-03-22] MEDS: LOSARTAN 50 MG TAB PO SCH (13:26)
[2020-03-22] MEDS: amLODIPine 10 MG TAB PO SCH (13:26)
[2020-03-22] MEDS: BENZONATATE 100 MG CAP PO PRN ×2 (14:52→20:10)
[2020-03-22] MEDS ORDERED: diphenhydrAMINE 25 MG CAP PO PRN (15:06)
[2020-03-22] MEDS: ACETAMINOPHEN TAB 325 MG TAB PO PRN (15:42)
[2020-03-22] MEDS: SODIUM CHLORIDE 0.9% 1,000 ML IV SCH (16:15)
[2020-03-22] MEDS ORDERED: IBUPROFEN 400 MG TAB PO STA (17:19)
[2020-03-22] MEDS ORDERED: dexAMETHasone 2 MG TAB PO STA (17:19)
[2020-03-22] MEDS ORDERED: ALBUTEROL HFA INHALER INHALATION PRN (17:21)
--- NOTE | 2020-03-22 18:14 | XR ---
EXAMINATION TYPE: XR chest 1V DATE OF EXAM: 03/22/2020 COMPARISON: Today HISTORY: Short of breath TECHNIQUE: FINDINGS: There is some mild atelectasis left lung base. There is no heart failure. Heart size is nor mal. There are no hilar masses. There are chest leads. IMPRESSION: There is some mild atelectasis left lung base that is new compared to exam this morning. Normal heart.
[2020-03-22] MEDS: MELATONIN 3 MG TABLET PO PRN (20:10)
[2020-03-22] MEDS: AZITHROMYCIN 500 MG TAB PO SCH (20:10)
[2020-03-22 20:31] LABS: Ferritin 1772.6 ng/mL (22.0-322.0)
[2020-03-22] MEDS: ALBUTEROL HFA INHALER INHALATION SCH (22:05)
[2020-03-23] MEDS: SODIUM CHLORIDE 0.9% 1,000 ML IV SCH (02:17)
[2020-03-23 07:44] LABS: Basophils % (A) 0 %; Eosinophils # (A) 0.1 k/uL (0-0.7); Eosinophils % (A) 0 %; HCT 43.2 % (39.0-53.0); HGB 14.6 gm/dL (13.0-17.5); Lymphocytes # (A) 0.3 k/uL (1.0-4.8); Lymphocytes % (A) 2 %; MCH 32.1 pg (25.0-35.0); MCHC 33.8 g/dL (31.0-37.0); MCV 95.1 fL (80.0-100.0); Mean Platelet Volume 7.9; Monocytes # (A) 0.4 k/uL (0-1.0); Monocytes % (A) 2 %; Neutrophils # (A) 19.3 k/uL (1.3-7.7); Neutrophils % (A) 96 %; Platelet Count 185 k/uL (150-450); RBC 4.55 m/uL (4.30-5.90); RDW 13.4 % (11.5-15.5); WBC 20.1 k/uL (3.8-10.6)
[2020-03-23] MEDS: ALBUTEROL HFA INHALER INHALATION SCH ×4 (07:47→19:41)
[2020-03-23] MEDS: ATORVASTATIN 40 MG TAB PO SCH (08:21)
[2020-03-23] MEDS: amLODIPine 10 MG TAB PO SCH (08:21)
[2020-03-23] MEDS: ASPIRIN 81 MG PO SCH (08:21)
[2020-03-23] MEDS: LOSARTAN 50 MG TAB PO SCH (08:21)
[2020-03-23] MEDS: PANTOPRAZOLE 40 MG TABLET PO SCH (08:21)
[2020-03-23] MEDS: AZITHROMYCIN 500 MG TAB PO SCH (08:21)
[2020-03-23] MEDS: HYDROcodone/APAP 5-325MG 1 EACH TAB PO PRN ×3 (08:31→20:58)
[2020-03-23] MEDS ORDERED: ENOXAPARIN 40 MG/0.4 ML SYRINGE SQ SCH (09:00)
[2020-03-23] MEDS ORDERED: ASPIRIN 325 MG TAB PO SCH (09:00)
[2020-03-23] MEDS ORDERED: dexAMETHasone 2 MG TAB PO SCH (09:00)
[2020-03-23 13:00] LABS: African American GFR (CKD) 71.6 (60.0-200.0); Anion Gap 11.9 mmol/L (4.00-12.00); Calcium 8.9 mg/dL (8.7-10.3); Carbon Dioxide 26.1 mmol/L (21.6-31.8); Chol/HDL Ratio 2.51; LDL Cholesterol,Calculated 48.4 mg/dL (0.0-131.0); Magnesium 2.6 mg/dL (1.5-2.4); Non-African American GFR(CKD) 61.8 (60.0-200.0); Potassium 4.3 mmol/L (3.5-5.5); VLDL Calculation 19.6 mg/dL (5.00-40.00)
--- NOTE | 2020-03-23 13:30 | P.PN ---
Subjective Progress Note Date: 03/23/20 CHIEF COMPLAINT: Chest pain HISTORY OF PRESENT ILLNESS: 03/22/2020 This is a 70-year-old male with a past medical history significant for hypertension, hyperlipidemia, and former nicotine dependence. Patient follows in the office with Dr. Payne. We have been asked to see the patient in consultation for chest pain. Patient examined at the bedside. Patient states he has been having chest pain on and off for the past week. The patient was also evaluated yesterday 03/21/2020 in the emergency room for chest pain. He was discharged home from the emergency room in stable condition. Patient states last week he was hunting and shot a coyote. He states he had to drag the coyote about 3/4 of a mile with his left arm while he had approximately 20 pounds of gear in his backpack. He states this is normal hunting gear that he carries every time and was not heavier than usual. He states the distance that he walked was not unusual for him either. He states he began to have some chest tightness while he was walking which resolved once he was at rest. He states over the following week he has been experiencing bilateral chest discomfort with deep inspiration. He states he does not have any pain when he is breathing normally. He denies any radiation of the pain. He denies any shortness of breath. Denies dizziness or lightheadedness. Denies nausea or vomiting. He states the pain is not worse with movement. He denies having any discomfort with chest wall palpation. 03/23/2020 Patient examined at the bedside. Patient continues to have chest discomfort with deep inspiration. WBC increased to 20.1 today. Patient febrile with a temperature of 100.2 today. Chest x-ray revealed some mild atelectasis left lung base that is new compared to previous exam. No evidence of heart failure. Patient has been started on antibiotics. Blood pressure 113/63. Heart rate in the 70s. He is on room air with oxygen saturations greater than 92%. Echocar diogram completed revealing ejection fraction greater than 55%, mild mitral regurgitation and mild tricuspid regurgitation. PHYSICAL EXAM: VITAL SIGNS: Reviewed. GENERAL: Well-developed in no acute distress. HEENT: Head is normocephalic. Pupils are equal, round. Sclerae anicteric. Mucous membranes of the mouth are moist. Neck supple. No JVD or thyromegaly LUNGS: Respirations even and unlabored. Lungs essentially clear to auscultation bilaterally. HEART: Regular rate and rhythm. S1 and S2 heard. No chest wall tenderness with palpation. EXTREMITIES: Normal range of motion. No clubbing or cyanosis. Peripheral pulses intact. No lower extremity edema ASSESSMENT: Chest pain, atypical, appears pleuritic in nature Leukocytosis with fever, rule out infectious process Elevated d-dimer, CT negative for PE Hypertension Hyperlipidemia Former nicotine dependence Hypomagnesemia Hyponatremia PLAN: Continue current cardiac medications Continue infectious workup per internal medicine No plans for stress test at this time until leukocytosis and fever resolve Further recommendations pending patient course Nurse practitioner note has been reviewed by physician. Signing provider agrees with the documented findings, assessment, and plan of care. Objective - Vital Signs Vital signs: Vital Signs Temp 99.0 F 03/23/20 12:23 Pulse 99 03/23/20 10:26 Resp 19 03/23/20 10:26 BP 113/63 03/23/20 10:26 Pulse Ox 93 L 03/23/20 10:26 Intake & Output 03/22/20 03/23/20 03/23/20 18:59 06:59 18:59 Weight 95.254 kg Other: # Voids 1 # Bowel Movements 1 - Labs CBC & Chem 7: 03/23/20 06:32 03/23/20 06:32 Labs: Abnormal Lab Results - Last 24 Hours (Table) 03/22/20 03/22/20 03/22/20 Range/Units 07:29 07:29 07:29 WBC (3.8-10.6) k/uL Neutrophils # (1.3-7.7) k/uL Lymphocytes # (1.0-4.8) k/uL Glucose (70-110) mg/dL Magnesium (1.5-2.4) mg/dL Ferritin 1772.6 H (22.0-322.0) ng/mL Procalcitonin 2.12 H (0.02-0.09) ng/mL ALEX Screen POSITIVE A (NEGATIVE) 03/23/20 03/23/20 Range/Units 06:32 06:32 WBC 20.1 H (3.8-10.6) k/uL Neutrophils # 19.3 H (1.3-7.7) k/uL Lymphocytes # 0.3 L (1.0-4.8) k/uL Glucose 185 H (70-110) mg/dL Magnesium 2.6 H (1.5-2.4) mg/dL Ferritin (22.0-322.0) ng/mL Procalcitonin (0.02-0.09) ng/mL ALEX Screen (NEGATIVE)
[2020-03-23 15:15] LABS: ANA Pattern Speckled
[2020-03-23] MEDS ORDERED: MORPHINE SULFATE 4 MG/ML SYRINGE IVP STA (15:27)
--- NOTE | 2020-03-23 15:59 | P.PN ---
Subjective Progress Note Date: 03/23/20 Hospital Course: Patient is a 70-year-old male with a past medical history including CAD, hypertension, hyperlipidemia, and GERD. Patient presenting [facility] with a chief complaint of chest pain. Patient reports he has been having chest pain with inspiration across his left and right anterior chest accompanied by a dry cough, fever, chills, and diaphoresis 1 week. Patient reports he was out coyote hunting when this began and the symptoms have progressively worsened with an elevated fever at home reported as high as 102F. He states left and right anterior chest pain with inspiration is sharp and nonradiating and is rated as high as 7 out of 10. This pain is not reproducible with movement or palpation, only upon inspiration. Labs: Covid, influenza, and urinalysis negative D-dimer elevated at 1.43. Troponins negative. BMP unremarkable. Liver profile revealing transaminitis with AST of 81 and alkaline phosphatase of 167. CBC revealing worsening leukocytosis with WBC count of 20.1 from previous 12.5 likely secondary to Decadron administration. CRP elevated at 186.2, ferritin 1772.6, pro-calcitonin 2.12, and a screen positive. Imaging: Chest x-ray negative for acute cardiopulmonary process. CT PE negative for pulmonary emboli. Repeat chest x-ray revealing mild atelectasis at left lung base. Echocardiogram revealing mild pulmonary hypertension with a preserved ejection fraction greater than 55%. Physical Exam: Patient seen and fully evaluated at the bedside. He states that he is feeling a little better today but continues to have chills and diaphoresis accompanied by his dry cough and chest pain with inspiration. Patient had an episode yesterday evening when he reportedly was eating a hamburger and choked. A consult was placed to speech and language pathology and a swallow evaluation was completed in which patient passed. Patient continues to have intermittent fevers with temperatures as high as 103 in the past 24 hours. Patient has also developed increased oxygenation needs when he desaturated down to 91% on room air requiring 3 L of oxygen to bring SpO2 greater than 93%. Patient continues to deny having any headache, lightheadedness, dizziness, changes in vision or hearing, nasal congestion or postnasal drainage, sore throat, shortness of breath, dyspnea with exertion, palpitations, abdominal pain, nausea, vomiting, changes in appetite, recent weight loss or weight gain, changes or difficulties with urinary or bowel function, or noticing any numbness/tingling/weakness/swelling/pain in extremities. General: non toxic, no distress, appears at stated age Derm: warm, dry Head: atraumatic, normocephalic, symmetric Eyes: EOMI, no lid lag, anicteric sclera Mouth: no lip lesion, mucus membranes moist, no erythema to posterior pharynx Cardiovascular: S1S2 reg, no murmur, positive posterior tibial pulses bilaterally, cap refill less than 2 seconds. Lungs: Respirations even, regular, and unlabored on 2 L O2 via nasal cannula with SpO2 of 96%. CTA bilaterally, no rhonchi, no rales, no wheezing and no accessory muscle use Abdominal: soft, nontender to palpation, no guarding, no appreciable organomegaly Ext: no gross muscle atrophy, no edema, no contractures Neuro: CN II-XI grossly intact, speech clear, no focal neuro deficits Psych: Alert, oriented, appropriate affect Assessment and Plan of care: Chest pain with pleurisy -ACS ruled out. Troponins negative, EKG normal sinus rhythm with no evidence of ischemia. -Cardiology following, possible cardiac catheterization once infectious process is controlled and fever and leukocytosis are resolved. -Chest x-ray and CT PE negative for acute process revealing only mild atelectasi s at left lung base.. -ProBNP increasing from 168-1230, we will repeat with a.m. labs. -Telemetry monitoring -Symptomatic care and pain management -Echocardiogram revealing mild pulmonary hypertension with a preserved ejection fraction greater than 55%. Sepsis secondary to acute bronchitis with reactive airway disease resulting in with Fever with leukocytosis -SIRS as evidenced by temp 103.0F, heart rate 99, blood pressure 96/61, and leukocytosis with WBC count of 20.1. -COVID, Influenza, urinalysis, CXR, and CT PE negative. -Blood cultures pending. -CRP 186.2 and pro-calcitonin 2.12. We will repeat with a.m. labs. -CBC revealing worsening leukocytosis with WBC count of 20.1 from previous 12.5 likely secondary to Decadron administration vs infectious process. -Symptomatic treatment, Tylenol as needed for fever/mild pain. -IV antibiotics: Azithromycin and Rocephin -Tessalon Perles as needed for cough. -Decadron 6 mg daily day 2. -Incentive spirometry 10-15 times per hour while awake. -Continue close monitoring with repeat a.m. labs. Transaminitis -Suspect elevated secondary to above etiologies. -Transaminitis with ALT 81 and a alkaline phosphatase of 167 -Caution with hepatotoxic medications. -If patient becomes symptomatic experiencing any abdominal pain/discomfort, nausea, or vomiting may consider further workup such as CT and/or ultrasound. -Monitor closely with repeat a.m. labs. Hypomagnesemia, resolved Hyponatremia, likely secondary to mild dehydration, resolved GERD -Continue daily home medication regimen with Protonix 40 mg each morning. Hypertension -Monitor vital signs and continue daily medication management with losartan and amlodipine. Hyperlipidemia -Continue daily medication management with atorvastatin 40 mg nightly. -Heart healthy diet. CODE STATUS: Full code with DO NOT INTUBATE DVT prophylaxis: Lovenox Discussed with: Patient and RN Anticipated discharge date: -[address]: Home A total of 45 minutes was spent on the care of this complex patient more than 50% of the time was spent in counseling and care coordination. Objective - Vital Signs Vital signs: Vital Signs Temp 100.2 F H 03/23/20 10:26 Pulse 99 03/23/20 10:26 Resp 19 03/23/20 10:26 BP 113/63 03/23/20 10:26 Pulse Ox 93 L 03/23/20 10:26 Intake & Output 03/22/20 03/23/20 03/23/20 18:59 06:59 18:59 Weight 95.254 kg - Labs CBC & Chem 7: 03/23/20 06:32 03/23/20 06:32 Labs: Abnormal Lab Results - Last 24 Hours (Table) 03/22/20 03/22/20 03/22/20 Range/Units 07:29 07:29 07:29 WBC (3.8-10.6) k/uL Neutrophils # (1.3-7.7) k/uL Lymphocytes # (1.0-4.8) k/uL Ferritin 1772.6 H (22.0-322.0) ng/mL C-Reactive Protein 186.2 H (<10.0) mg/L Procalcitonin 2.12 H (0.02-0.09) ng/mL ALEX Screen POSITIVE A (NEGATIVE) 03/23/20 Range/Units 06:32 WBC 20.1 H (3.8-10.6) k/uL Neutrophils # 19.3 H (1.3-7.7) k/uL Lymphocytes # 0.3 L (1.0-4.8) k/uL Ferritin (22.0-322.0) ng/mL C-Reactive Protein (<10.0) mg/L Procalcitonin (0.02-0.09) ng/mL ALEX Screen (NEGATIVE)
[2020-03-23] MEDS: MELATONIN 3 MG TABLET PO PRN (20:59)
[2020-03-24] MEDS ORDERED: SODIUM CHLORIDE 0.9% 1,000 ML IV ONE ×2 (01:26→10:19)
[2020-03-24 01:45] LABS: Glucose,Whole Blood 203 mg/dL (75-99)
[2020-03-24] MEDS ORDERED: ALBUTEROL NEBULIZED 2.5 MG/3 ML INHALATION ONE (01:45)
--- NOTE | 2020-03-24 01:47 | XR ---
EXAM: XR Chest, 1 View CLINICAL HISTORY: ITS.REASON XR Reason: worsening oxygen requireent TECHNIQUE: Frontal view of the chest. COMPARISON: 03/21/2020 IMPRESSION: Cardiomegaly. Left basilar opacity. Increased interstitial opacities throughout the lungs.
[2020-03-24] MEDS ORDERED: IPRATROPIUM-ALBUTEROL 3 ML NEB INHALATION PRN (01:48)
[2020-03-24] MEDS ORDERED: ALPRAZolam 0.5 MG TAB PO STA (01:57)
[2020-03-24] MEDS ORDERED: LORazepam 1 MG TAB PO PRN (03:04)
--- NOTE | 2020-03-24 03:19 | P.EN ---
03/24/2020 1254 I was notified by RN to evaluate patient for increased work of breathing and diaphoresis and worsening hypoxic respiratory failure despite NC at 5 LPM Upon evaluating patient , vital signs showing hypoxemia with O2 sat 88-89% on 5 LPM NC, BP 90/50 and heart rate low 100s. he was tachypnic with shallow breathing. patient reports difficulty breathing patient alert oriented, talking short sentences due to difficulty breathing able to follow commands and makes good eye contact lungs very poor breath sounds throughout, with some wheezing and decrease air entry overall patient has just received albuterol inhaler 2 puffs about 20minutes ago with no much improvement patient placed on non rebreather at 15 LMP, stat CXR showed left basilar opacities with worsening interstitial opacities throughout. patient presented with fever and URI symptoms of 1 week prior to arrival, had two negative COIVD tests, and negative influenza. he was started on ANtibiotics, and cardiology was working him up for ACS , no recommendation for stress test at this time. patient was also given nebulized breathing treatment, which helped improve his breath sounds, and started having audible wheezing upon breathing with some coughing, definitely helped him bronchodilate , oxygenation improved with above measures to 94% low threshold to start bipap to help with work of breathing as patient was tachypnic and diaphoretic earlier patient also given a dose of xanax continue current treatment otherwise check urine legionella antigen 1 L bolus of normal saline Duo neb PRN Q2 hours 40 minutes spent in critical care time spent in the care of this patient ..... update @ 0300 patient now reporting chest tightness, and becoming tachypnic again his oxygen sat 93% on Nonrebreather he is due for another breathing treatment , will start patient on Bipap to help with work of breathing and check an EKG he is due for another breathing treatment Ativan 1 mg Q8hrs PRN
[2020-03-24] MEDS ORDERED: SODIUM CHLORIDE 0.9% 1,000 ML IV SCH ×2 (03:30→10:30)
[2020-03-24] MEDS ORDERED: LORazepam 2 MG/ML INJ IV STA (03:51)
[2020-03-24] MEDS ORDERED: MORPHINE SULFATE 4 MG/ML SYRINGE IVP STA (04:40)
[2020-03-24 04:44] LABS: ABG Base Excess -6.2 mmol/L; ABG HCO3 20 mmol/L (21-25); ABG Oxygen Saturation 93.8 % (94-97); ABG PCO2 38 mmHg (35-45); ABG PH 7.32 (7.35-7.45); ABG PO2 84 mmHg (83-108); ABG TCO2 21 mmol/L (19-24); Allen Test Performed? Yes
[2020-03-24 05:55] LABS: HGB 13.4 gm/dL (13.0-17.5); MCH 31.6 pg (25.0-35.0); MCHC 33.5 g/dL (31.0-37.0); MCV 94.6 fL (80.0-100.0); Mean Platelet Volume 8.1; Platelet Count 257 k/uL (150-450); RBC 4.23 m/uL (4.30-5.90); RDW 13.6 % (11.5-15.5)
[2020-03-24 06:14] LABS: ALT 54 U/L (4-49); AST 64 U/L (17-59); African American GFR (CKD) 34 (>60 ml/min/1.73 sqM); Albumin 3.1 g/dL (3.5-5.0); Albumin/Globulin Ratio 1.1; Alkaline Phosphatase 150 U/L (38-126); Anion Gap 13 mmol/L; Blood Urea Nitrogen 43 mg/dL (9-20); Calcium 8.1 mg/dL (8.4-10.2); Carbon Dioxide 19 mmol/L (22-30); Chloride 96 mmol/L (98-107); Globulin 2.9 g/dL; Glucose 179 mg/dL (74-99); Magnesium 2.6 mg/dL (1.6-2.3); Non-African American GFR(CKD) 29 (>60 ml/min/1.73 sqM); Potassium 4.2 mmol/L (3.5-5.1); Sodium 128 mmol/L (137-145); Total Bilirubin 0.9 mg/dL (0.2-1.3)
[2020-03-24 06:15] LABS: Glucose,Whole Blood 185 mg/dL (75-99)
[2020-03-24 06:57] LABS: C Reactive Protein 428.3 mg/L (<10.0)
[2020-03-24] MEDS ORDERED: INSULIN ASPART (NovoLOG) 100 UNIT/ML VIAL SQ SCH (07:30)
[2020-03-24] MEDS ORDERED: HALOPERIDOL LACTATE 5 MG/ML 1 ML VIAL IVP ONE (08:21)
[2020-03-24 08:26] LABS: Glucose,Whole Blood 179 mg/dL (75-99)
[2020-03-24] MEDS ORDERED: FUROSEMIDE 10 MG/ML 10 ML VIAL IV STA ×3 (08:46→23:18)
[2020-03-24 08:48] LABS: Glucose,Whole Blood 185 mg/dL (75-99)
[2020-03-24] MEDS ORDERED: SODIUM CHLORIDE 0.9% 500 ML 500 ML IV ONE (08:53)
[2020-03-24] MEDS ORDERED: propofoL 100 ML IV ONE ×2 (08:55→10:19)
[2020-03-24] MEDS ORDERED: ASPIRIN 325 MG TAB PO SCH (09:00)
[2020-03-24] MEDS ORDERED: NOREPINEPHRIN 4 MG-0.9% NS PMX 4 MG/250 ML ML IV ONE ×3 (09:01→22:14)
[2020-03-24] MEDS ORDERED: HYDROCORTISONE SUCCINATE 100 MG/2 ML VIAL IV STA (09:04)
[2020-03-24] MEDS ORDERED: SUCCINYLCHOLINE CHLORIDE VIAL 200 MG/10 ML VIAL IV ONE (09:10)
[2020-03-24] MEDS ORDERED: PROPOFOL 10 MG/ML 20 ML VIAL IV ONE (09:10)
[2020-03-24] MEDS ORDERED: LEVOFLOXACIN 500MG-D5W PMX 500 MG in DEXTROSE/WATER 1 100ML.BAG IVPB SCH (09:15)
--- NOTE | 2020-03-24 09:49 | XR ---
EXAMINATION TYPE: XR chest 1V portable DATE OF EXAM: 03/24/2020 CLINICAL HISTORY: Difficulty breathing and had to be intubated. TECHNIQUE: Single AP portable supine view of the chest is obtained. COMPARISON: Chest x-ray from earlier today and older studies. CTA chest 2 days ago. FINDINGS: New endotracheal tube at aortic knob level, approximately 1 cm above anotinette, advise dominguez g back 3 to 4 cm to be in more ideal position. New orogastric tube projects below diaphragm. Stable mild cardiomegaly. Persistent multifocal bilateral opacities greatest in the mid to lower lung s with interval progression lateral left midlung. Worsening silhouetting of the left hemidiaphragm. O sseous structures remain intact. IMPRESSION: 1. New orogastric tube satisfactory in position. 2. Low-lying endotracheal tube 1 cm above antoinette, advise pulling back 3 to 4 cm. 3. Worsening bilateral multifocal infiltrates in the mid to lower lungs, correlate to exclude covid 1 9 infection.
[2020-03-24 10:00] LABS: ABG Base Excess -10.6 mmol/L; ABG HCO3 17 mmol/L (21-25); ABG Oxygen Saturation 82.5 % (94-97); ABG PCO2 40 mmHg (35-45); ABG PH 7.23 (7.35-7.45); ABG TCO2 18 mmol/L (19-24); Allen Test Performed? Yes
[2020-03-24 10:03] LABS: ABG PO2 57 mmHg (83-108)
[2020-03-24 10:09] LABS: Troponin I 5.32 ng/mL (0.000-0.034)
[2020-03-24] MEDS: SODIUM BICARB 8.4% 50 ML SYR (1 MEQ/ML) IV STA ×2 (10:13→11:41)
[2020-03-24] MEDS ORDERED: CISATRACURIUM 2 MG/ML 5 ML VIAL IV ONE ×3 (10:16→11:50)
[2020-03-24] MEDS ORDERED: MORPHINE SULFATE 2 MG/ML SYRINGE IVP PRN (10:21)
[2020-03-24] MEDS ORDERED: NOREPINEPHRINE 32 MG in SODIUM CHLORIDE 0.9% 218 ML IV SCH (10:30)
[2020-03-24] MEDS ORDERED: FUROSEMIDE 10 MG/ML 4 ML VIAL ONE (10:52)
[2020-03-24] MEDS ORDERED: FUROSEMIDE 10 MG/ML 4 ML VIAL IV STA (10:54)
[2020-03-24 11:17] LABS: ABG Base Excess -9.1 mmol/L; ABG HCO3 18 mmol/L (21-25); ABG Oxygen Saturation 90.4 % (94-97); ABG PCO2 39 mmHg (35-45); ABG PH 7.27 (7.35-7.45); ABG PO2 71 mmHg (83-108); ABG TCO2 19 mmol/L (19-24)
--- NOTE | 2020-03-24 11:23 | XR ---
EXAMINATION TYPE: XR chest 1V portable DATE OF EXAM: 03/24/2020 CLINICAL HISTORY: Central line placement . TECHNIQUE: Single AP portable semiupright view of the chest is obtained. COMPARISON: Chest x-ray from earlier today and older studies FINDINGS: New right internal jugular central venous catheter terminates in right atrium. No pneumoth orax. Interval retraction of endotracheal tube roughly 3 to 4 cm above antoinette above the aortic knob. [place]rogas tric tube stable. Stable mild cardiomegaly. Persistent multifocal bilateral opacities greatest in the mid to lower lung s are redemonstrated. Osseous structures remain intact. IMPRESSION: New right internal jugular central venous catheter terminates in right atrium. No pneumot horax. Improved positioning endotracheal tube otherwise no significant interval change from most rece nt x-ray.
[2020-03-24] MEDS: IPRATROPIUM-ALBUTEROL 3 ML NEB INHALATION SCH ×3 (11:30→19:39)
[2020-03-24] MEDS: NOREPINEPHRINE 32 MG in SODIUM CHLORIDE 0.9% 218 ML IV SCH ×4 (11:37→23:07)
[2020-03-24] MEDS: PANTOPRAZOLE 40 MG/10 ML VIAL IVP SCH (11:37)
[2020-03-24] MEDS: ASPIRIN 81 MG PO SCH (11:38)
[2020-03-24] MEDS: ATORVASTATIN 40 MG TAB PO SCH (11:38)
[2020-03-24] MEDS ORDERED: SODIUM BICARB 8.4% 50 ML SYR (1 MEQ/ML) IV STA (11:40)
[2020-03-24] MEDS: DOXYCYCLINE 100 MG in SODIUM CHLORIDE 0.9% 100 ML IVPB SCH ×2 (11:49→20:23)
[2020-03-24] MEDS ORDERED: ARTIFICIAL TEARS-HYPROMELLOSE DROPS 15 ML BTL BOTH EYES PRN (11:50)
--- NOTE | 2020-03-24 11:59 | P.EN ---
Called to patient bedside due to patient's agitation precluding him from wearing BIPAP mask. At my evaluation patient was 93-94% on 01/30, FiO2 100%, with which he was tachypneic in the high 30s-low40s. Patient had complained to me about the mask and wanted it off, however, after explaining to him the need for increased oxygen level, and liklihood of intubation, patient decided to allow further care and escalation to intubation if needed, which is a change in his code status from DNI to FULL CODE. afebrile, 72/39, HR 94 Gen: anxious, in mod-severe respiratory distress Resp: LLL crackles, tachypnea, accessory muscle use CVS: tachycardic without murmurs Neuro: no focal deficits, A+Ox3 AB.32, PO2 80, PCO2 32 A/P: 1. Severe Sepsis with Septic shock and Acute Hypoxemic Respiratory Failure Patient warrants transfer to the ICU for intubation and pressors Broaden antibiotics from cef/azithro CXR shows worsening left sided disease GoC discussion with patient and girlfriend, patient is now FULL CODE, okay with intubation I spent 38 minutes of critical care time with this patient, in addition to my colleague's critical care time earlier this morning.
[2020-03-24] MEDS ORDERED: SODIUM CHLORIDE 0.9% 500 ML 500 ML IV SCH (12:00)
[2020-03-24 12:03] LABS: Amorphous Sediment,Urine Rare /hpf; Appearance,Urine Turbid (Clear); Bacteria,Urine Rare /hpf; Bilirubin,Urine Negative (Negative); Blood,Urine Moderate (Negative); Color,Urine Yellow; Glucose,Urine (UA) Negative (Negative); Granular Casts,Urine 25 /lpf (0); Ketones,Urine Negative (Negative); Leukocyte Esterase,Urine Negative (Negative); Mucus,Urine Rare /hpf; Nitrite,Urine Negative (Negative); Protein,Urine 2+ (Negative); RBC,Urine 3 /hpf (0-5); Specific Gravity,Urine 1.022 (1.001-1.035); Squamous Epithelial Cell,Urine <1 /hpf (0-4); Urobilinogen,Urine <2.0 mg/dL (<2.0); WBC,Urine 6 /hpf (0-5)
[2020-03-24] MEDS: CISATRACURIUM 200 MG in SODIUM CHLORIDE 0.9% 180 ML IV SCH (12:03)
[2020-03-24 12:04] LABS: Glucose,Whole Blood 181 mg/dL (75-99)
[2020-03-24] MEDS: CHLORHEXIDINE GLUCONATE 15 ML CUP MUCOUS MEM SCH ×2 (12:16→20:22)
[2020-03-24] MEDS: ACETAMINOPHEN TAB 325 MG TAB PO PRN (12:18)
[2020-03-24] MEDS: SODIUM CHLORIDE 0.9% 150 ML with VASOPRESSIN 60 UNIT IV SCH ×2 (12:22)
--- NOTE | 2020-03-24 13:51 | P.PN ---
Subjective This is a pleasant 70-year-old male past medical history significant for hypertension, dyslipidemia and former nicotine dependence. He follows in the office with Dr. Payne. He presented to the hospital with symptoms of pleuritic chest pain and was found to have leukocytosis and a fever. Through the evening his breathing became more labored requiring transfer to selective care unit or BiPAP was applied. Early this morning he was becoming increasingly to On BiPAP with altered mental status and hypotension. He was transferred to [facility] intensive care unit for intubation. Laboratory studies obtained revealed troponin of 5. He is currently on Levaquin 5 with an arterial blood pressure of 105/55. ABG status post intubation reveals pH of 7.27, pO2 of 71 and bicarb of 18. Chest x-ray this morning reveals persistent multifocal bilateral opacity is greatest in the mid to lower lungs. Nuclear stress test performed in 2018 was negative for reversible cardiac ischemia. Echocardiogram obtained on this admission revealed preserved LV systolic function with ejection fraction 55-60% with no wall motion abnormalities noted. He said Dr. Payne in the office January 2020 was scheduled to have an outpatient stress test. GENERAL: Maintained on mechanical ventilation. NECK: Supple without JVD or thyromegaly. LUNGS: Course rales, no wheezes or rhonchi. Respiration equal and unlabored on mechanical ventilation. HEART: Regular rate and rhythm without murmurs, rubs or gallops. S1 and S2 heard. EXTREMITIES: Normal range of motion, no edema. No clubbing or cyanosis. Peripheral pulses intact. ASSESSMENT Acute hypoxic respiratory failure Elevated troponin of unclear etiology, possibly related to type II myocardial injury with oxygen supply and demand mismatch. Febrile illness Sepsis Leukocytosis Hypertension Dyslipidemia PLAN Repeat limited echo to assess LV function. No current plans for cardiac intervention given sepsis. Further recommendations to follow based on clinical course. Nurse Practitioner note has been reviewed, I agree with a documented findings and plan of care. Patient was seen and examined. Objective - Vital Signs Vital signs: Vital Signs Temp 101 F H 03/24/20 12:00 Pulse 101 H 03/24/20 13:15 Resp 26 H 03/24/20 13:15 BP 80/59 03/24/20 13:15 Pulse Ox 94 L 03/24/20 13:15 Intake & Output 03/23/20 03/24/20 03/24/20 18:59 06:59 18:59 Intake Total 1064.912 Output Total 700 250 Balance -700 814.912 Intake: IV 1060 0.9 NACL 60 0.9 NACL bolus 1000 Intake, IV Titration 4.912 Amount Norepinephrine 32 mg In 4.912 Sodium Chloride 0.9% 218 ml @ 0.05 MCG/KG/MIN 2. 233 mls/hr IV .Q24H ADAM Rx#:[id number] Output: Urine 700 250 Other: # Voids 1 1 # Bowel Movements 1 ABP, PAP, CO, CI - Last Documented Arterial Blood Pressure 105/55 - Labs CBC & Chem 7: 03/24/20 05:44 03/24/20 05:44 Labs: Abnormal Lab Results - Last 24 Hours (Table) 03/24/20 03/24/20 03/24/20 Range/Units 01:43 04:44 05:44 WBC (3.8-10.6) k/uL RBC (4.30-5.90) m/uL D-Dimer (<0.60) mg/L FEU ABG pH 7.32 L (7.35-7.45) ABG pO2 (83-108) mmHg ABG HCO3 20 L (21-25) mmol/L ABG Total CO2 (19-24) mmol/L ABG O2 Saturation 93.8 L (94-97) % Sodium (137-145) mmol/L Chloride (98-107) mmol/L Carbon Dioxide (22-30) mmol/L BUN (9-20) mg/dL Creatinine (0.66-1.25) mg/dL Glucose (74-99) mg/dL POC Glucose (mg/dL) 203 H (75-99) mg/dL Plasma Lactic Acid Galindo (0.7-2.0) mmol/L Calcium (8.4-10.2) mg/dL Magnesium (1.6-2.3) mg/dL AST (17-59) U/L ALT (4-49) U/L Alkaline Phosphatase (38-126) U/L Creatine Kinase (55-170) U/L CK-MB (CK-2) (0.0-2.4) ng/mL Troponin I (0.000-0.034) ng/mL C-Reactive Protein (<10.0) mg/L Total Protein (6.3-8.2) g/dL Albumin (3.5-5.0) g/dL Procalcitonin 45.07 H (0.02-0.09) ng/mL Urine Protein (Negative) Urine Blood (Negative) Urine WBC (0-5) /hpf Amorphous Sediment (None) /hpf Urine Bacteria (None) /hpf Urine Mucus (None) /hpf 03/24/20 03/24/20 03/24/20 Range/Units 05:44 05:44 05:44 WBC 34.0 H (3.8-10.6) k/uL RBC 4.23 L (4.30-5.90) m/uL D-Dimer 4.09 H (<0.60) mg/L FEU ABG pH (7.35-7.45) ABG pO2 (83-108) mmHg ABG HCO3 (21-25) mmol/L ABG Total CO2 (19-24) mmol/L ABG O2 Saturation (94-97) % Sodium 128 L (137-145) mmol/L Chloride 96 L (98-107) mmol/L Carbon Dioxide 19 L (22-30) mmol/L BUN 43 H (9-20) mg/dL Creatinine 2.22 H (0.66-1.25) mg/dL Glucose 179 H (74-99) mg/dL POC Glucose (mg/dL) (75-99) mg/dL Plasma Lactic Acid Galindo (0.7-2.0) mmol/L Calcium 8.1 L (8.4-10.2) mg/dL Magnesium 2.6 H (1.6-2.3) mg/dL AST 64 H (17-59) U/L ALT 54 H (4-49) U/L Alkaline Phosphatase 150 H (38-126) U/L Creatine Kinase (55-170) U/L CK-MB (CK-2) (0.0-2.4) ng/mL Troponin I (0.000-0.034) ng/mL C-Reactive Protein 428.3 H (<10.0) mg/L Total Protein 6.0 L (6.3-8.2) g/dL Albumin 3.1 L (3.5-5.0) g/dL Procalcitonin (0.02-0.09) ng/mL Urine Protein (Negative) Urine Blood (Negative) Urine WBC (0-5) /hpf Amorphous Sediment (None) /hpf Urine Bacteria (None) /hpf Urine Mucus (None) /hpf 03/24/20 03/24/20 03/24/20 Range/Units 06:14 08:24 08:39 WBC (3.8-10.6) k/uL RBC (4.30-5.90) m/uL D-Dimer (<0.60) mg/L FEU ABG pH (7.35-7.45) ABG pO2 (83-108) mmHg ABG HCO3 (21-25) mmol/L ABG Total CO2 (19-24) mmol/L ABG O2 Saturation (94-97) % Sodium (137-145) mmol/L Chloride (98-107) mmol/L Carbon Dioxide (22-30) mmol/L BUN (9-20) mg/dL Creatinine (0.66-1.25) mg/dL Glucose (74-99) mg/dL POC Glucose (mg/dL) 185 H 179 H 185 H (75-99) mg/dL Plasma Lactic Acid Galindo (0.7-2.0) mmol/L Calcium (8.4-10.2) mg/dL Magnesium (1.6-2.3) mg/dL AST (17-59) U/L ALT (4-49) U/L Alkaline Phosphatase (38-126) U/L Creatine Kinase (55-170) U/L CK-MB (CK-2) (0.0-2.4) ng/mL Troponin I (0.000-0.034) ng/mL C-Reactive Protein (<10.0) mg/L Total Protein (6.3-8.2) g/dL Albumin (3.5-5.0) g/dL Procalcitonin (0.02-0.09) ng/mL Urine Protein (Negative) Urine Blood (Negative) Urine WBC (0-5) /hpf Amorphous Sediment (None) /hpf Urine Bacteria (None) /hpf Urine Mucus (None) /hpf 03/24/20 03/24/20 03/24/20 Range/Units 09:08 09:08 09:08 WBC (3.8-10.6) k/uL RBC (4.30-5.90) m/uL D-Dimer (<0.60) mg/L FEU ABG pH (7.35-7.45) ABG pO2 (83-108) mmHg ABG HCO3 (21-25) mmol/L ABG Total CO2 (19-24) mmol/L ABG O2 Saturation (94-97) % Sodium (137-145) mmol/L Chloride (98-107) mmol/L Carbon Dioxide (22-30) mmol/L BUN (9-20) mg/dL Creatinine (0.66-1.25) mg/dL Glucose (74-99) mg/dL POC Glucose (mg/dL) (75-99) mg/dL Plasma Lactic Acid Galindo 2.1 H* (0.7-2.0) mmol/L Calcium (8.4-10.2) mg/dL Magnesium (1.6-2.3) mg/dL AST (17-59) U/L ALT (4-49) U/L Alkaline Phosphatase (38-126) U/L Creatine Kinase 276 H (55-170) U/L CK-MB (CK-2) 15.0 H (0.0-2.4) ng/mL Troponin I 5.320 H* (0.000-0.034) ng/mL C-Reactive Protein (<10.0) mg/L Total Protein (6.3-8.2) g/dL Albumin (3.5-5.0) g/dL Procalcitonin (0.02-0.09) ng/mL Urine Protein (Negative) Urine Blood (Negative) Urine WBC (0-5) /hpf Amorphous Sediment (None) /hpf Urine Bacteria (None) /hpf Urine Mucus (None) /hpf 03/24/20 03/24/20 03/24/20 Range/Units 09:51 11:11 11:30 WBC (3.8-10.6) k/uL RBC (4.30-5.90) m/uL D-Dimer (<0.60) mg/L FEU ABG pH 7.23 L 7.27 L (7.35-7.45) ABG pO2 57 L* 71 L (83-108) mmHg ABG HCO3 17 L 18 L (21-25) mmol/L ABG Total CO2 18 L (19-24) mmol/L ABG O2 Saturation 82.5 L 90.4 L (94-97) % Sodium (137-145) mmol/L Chloride (98-107) mmol/L Carbon Dioxide (22-30) mmol/L BUN (9-20) mg/dL Creatinine (0.66-1.25) mg/dL Glucose (74-99) mg/dL POC Glucose (mg/dL) (75-99) mg/dL Plasma Lactic Acid Galindo (0.7-2.0) mmol/L Calcium (8.4-10.2) mg/dL Magnesium (1.6-2.3) mg/dL AST (17-59) U/L ALT (4-49) U/L Alkaline Phosphatase (38-126) U/L Creatine Kinase (55-170) U/L CK-MB (CK-2) (0.0-2.4) ng/mL Troponin I (0.000-0.034) ng/mL C-Reactive Protein (<10.0) mg/L Total Protein (6.3-8.2) g/dL Albumin (3.5-5.0) g/dL Procalcitonin (0.02-0.09) ng/mL Urine Protein 2+ H (Negative) Urine Blood Moderate H (Negative) Urine WBC 6 H (0-5) /hpf Amorphous Sediment Rare H (None) /hpf Urine Bacteria Rare H (None) /hpf Urine Mucus Rare H (None) /hpf 03/24/20 Range/Units 12:02 WBC (3.8-10.6) k/uL RBC (4.30-5.90) m/uL D-Dimer (<0.60) mg/L FEU ABG pH (7.35-7.45) ABG pO2 (83-108) mmHg ABG HCO3 (21-25) mmol/L ABG Total CO2 (19-24) mmol/L ABG O2 Saturation (94-97) % Sodium (137-145) mmol/L Chloride (98-107) mmol/L Carbon Dioxide (22-30) mmol/L BUN (9-20) mg/dL Creatinine (0.66-1.25) mg/dL Glucose (74-99) mg/dL POC Glucose (mg/dL) 181 H (75-99) mg/dL Plasma Lactic Acid Galindo (0.7-2.0) mmol/L Calcium (8.4-10.2) mg/dL Magnesium (1.6-2.3) mg/dL AST (17-59) U/L ALT (4-49) U/L Alkaline Phosphatase (38-126) U/L Creatine Kinase (55-170) U/L CK-MB (CK-2) (0.0-2.4) ng/mL Troponin I (0.000-0.034) ng/mL C-Reactive Protein (<10.0) mg/L Total Protein (6.3-8.2) g/dL Albumin (3.5-5.0) g/dL Procalcitonin (0.02-0.09) ng/mL Urine Protein (Negative) Urine Blood (Negative) Urine WBC (0-5) /hpf Amorphous Sediment (None) /hpf Urine Bacteria (None) /hpf Urine Mucus (None) /hpf Microbiology - Last 24 Hours (Table) 03/22/20 13:51 Blood Culture - Preliminary Blood No Growth after 24 hours
--- NOTE | 2020-03-24 14:11 | P.CNPUL ---
History of Present Illness Consult date: 03/24/20 Requesting physician: Maggie Jarquin Reason for consult: other (Acute hypoxic respiratory failure, sepsis, septic shock.) Chief complaint: Chest pain, dry cough, fever and chills History of present illness: This is a 70-year-old white male with history of hypertension and underlying coronary artery disease, patient was admitted yesterday with intermittent episodes of chest pains, pleuritic in nature, associated with dry cough, fever, chills, and diaphoresis for almost one week. Patient was initially seen in the ER on 03/21/2020, and he was discharged home in stable condition. His workup was basically nondiagnostic. And his chest x-ray was normal. The week prior to his presentation, patient shot a coyote, and he had to drag the coyote about 3-4 miles. Apparently he started having chest pain at the time of dragging the coyote, and his pain resolved as he rested. Over the following week, patient has been experiencing diffuse chest discomfort with deep inspiration, had no radiation of the pain, he had mostly intermittent episodes of cough, fever, chills, and that is when he came to the ER. Again patient was admitted on 03/22/2020, CT angiogram of the chest was done, and it was basically normal. There was no evidence of pulmonary embolism, no evidence of infiltrate, minimal left basilar atelectasis was noted. Chest x-ray upon admission was also normal. Patient was seen by cardiology on consultation on 03/22/2020, felt that the pain was atypical, pleuritic in nature, however there was a concern based on the consultation about his leukocytosis with fever and the die cast operator was concerned about underlying infectious process. His temperature upon admission was ranging between 100 and 103. Patient was treated empirically with antibiotics in the form of Rocephin and Zithromax, however this morning patient was transferred to the ICU mostly because of worsening shortness of breath, worsening chest x-ray, hypotension, patient was placed on BiPAP, however he remained marginal and his overall pulmonary status, and upon my evaluation in the ICU, patient clearly needed to be intubated and placed on mechanical ventilation as he was clearly hypotensive, febrile, and he was also noted to have very marginal O2 saturation on 100% BiPAP. Discussed with the patient the need for intubation mechanical ventilation, he agreed, and the patient was intubated and placed on mechanical ventilation. Patient required also placement on norepinephrine, vasopressin, and his antibiotics coverage was broadened. Cardiology was asked to reevaluate him because of his increased troponin and his increase BNP level. Chest x-ray showed initially evidence of interstitial edema and possible underlying pneumonia. Post intubation, follow-up chest x-ray showed cardiomegaly, possible multifocal bilateral opacities a greater in the mid and lower lungs. Hence we'll broaden the spectrum of his antibiotics coverage, and the patient required to be placed on high FiO2, required high P EEP, and follow-up ABG done showed a pO2 of 71 pCO2 of 39 pH of 7.27 and this was on 100% FiO2, and PEEP of 10. Review of Systems Constitutional: Fever chills, no weight loss. HEENT: Negative. Pulmonary: As noted in HPI. Cardiac: As noted in HPI. GI: Negative. Genitourinary: Negative. Musculoskeletal: Negative. Skin: Negative. Neurologic: Negative. Endocrine: Negative. Hematologic: Negative. Psychiatric: Negative. Past Medical History Past Medical History: GERD/Reflux, Hyperlipidemia, Hypertension, Myocardial Infarction ([place]), Renal Disease Additional Past Medical History / Comment(s): Mild [place] per EKG, lower back pain/2 herniated discs and vertebrae cracked, cervical pain since diving injury, pt has passed renal stones. Last Myocardial Infarction Date:: unkn History of Any Multi-Drug Resistant Organisms: None Reported Past Surgical History: Orthopedic Surgery Additional Past Surgical History / Comment(s): L knee arthroscopy, colonoscopy Past Anesthesia/Blood Transfusion Reactions: No Reported Reaction Smoking Status: Former smoker - Past Family History Father Family Medical History: Liver Disease Additional Family Medical History / Comment(s): Father of liver cirrhosis. Mother Family Medical History: Cancer Additional Family Medical History / Comment(s): Mother of lung cancer. She was a smoker. Brother(s) Family Medical History: Coronary Artery Disease (CAD) Additional Family Medical History / Comment(s): Brother had a [place] at the age of 46 yrs. Medications and Allergies Home Medications Medication Instructions Recorded Confirmed Type Acetaminophen/Diphenhydramine 1 tab PO HS 03/22/20 03/22/20 History [Tylenol PM 500-25mg] Aspirin EC [Ecotrin Low Dose] 81 mg PO DAILY 03/22/20 03/22/20 History Atorvastatin Calcium [Lipitor] 40 mg PO DAILY 03/22/20 03/22/20 History Losartan Potassium [Cozaar] 100 mg PO DAILY 03/22/20 03/22/20 History Omeprazole 40 mg PO DAILY 03/22/20 03/22/20 History amLODIPine [Norvasc] 10 mg PO DAILY 03/22/20 03/22/20 History Allergies Allergy/AdvReac Type Severity Reaction Status Date / Time No Known Allergies Allergy Verified 03/22/20 07:57 Physical Exam Vitals: Vital Signs Temp Pulse Pulse Resp BP BP Pulse Ox 03/24/20 13:15 101 H 26 H 80/59 94 L 03/24/20 13:00 103 H 26 H 80/59 94 L 03/24/20 12:45 105 H 26 H 80/59 95 03/24/20 12:30 106 H 26 H 80/59 95 03/24/20 12:10 108 H 26 H 80/59 94 L 03/24/20 12:00 101 F H 102 H 24 92 L 03/24/20 11:50 103 H 24 78/63 90 L 03/24/20 11:45 102 H 03/24/20 11:40 101 H 37 H 78/63 87 L 03/24/20 11:30 101 H 24 78/63 91 L 03/24/20 11:20 101 H 32 H 78/63 92 L 03/24/20 11:10 100 27 H 78/63 92 L 03/24/20 11:00 100 26 H 78/63 89 L 03/24/20 10:50 98 26 H 89 L 03/24/20 10:40 97 26 H 102/58 88 L 03/24/20 10:30 99 26 H 104/55 89 L 03/24/20 10:20 102 H 35 H 91/64 87 L 03/24/20 10:10 98 35 H 94/65 87 L 03/24/20 10:00 96 31 H 102/67 86 L 03/24/20 09:50 96 23 93/56 85 L 03/24/20 09:40 81 24 71/46 86 L 03/24/20 09:30 99 22 73/55 83 L 03/24/20 09:20 78 20 79/62 85 L 03/24/20 09:10 99 31 H 79/62 94 L 03/24/20 09:00 98 30 H 84/68 94 L 03/24/20 08:50 99 34 H 80/64 94 L 03/24/20 08:40 100 49 H 89/61 93 L 03/24/20 08:39 98 31 H 93 L 03/24/20 08:19 72/59 03/24/20 07:54 97 33 H 93/55 95 03/24/20 07:49 82/55 03/24/20 07:47 97.3 F L 98 31 H 96/52 94 L 03/24/20 05:31 97.0 F L 99 31 H 93/57 94 L 03/24/20 05:07 100/66 96 03/24/20 04:45 98.2 F 97 26 H 99/66 94 L 03/24/20 03:33 98.2 F 103 H 116/69 92 L 03/24/20 02:01 112 H 03/24/20 01:50 102 H 03/24/20 01:45 98.2 F 103 H 18 99/65 92 L 03/24/20 01:00 103 H 30 H 03/23/20 20:00 20 03/23/20 19:15 98.3 F 102 H 22 134/74 94 L 03/23/20 18:39 92 L 03/23/20 14:40 104/63 03/23/20 14:00 98.3 F 91 18 78/53 91 L Intake and Output 03/23/20 03/24/20 03/24/20 22:59 06:59 14:59 Intake Total 1113.507 Output Total 700 250 Balance -700 863.507 Intake: IV 1060 0.9 NACL 60 0.9 NACL bolus 1000 Intake, IV Titration 53.507 Amount Norepinephrine 32 mg In 53.507 Sodium Chloride 0.9% 218 ml @ 0.05 MCG/KG/MIN 2. 233 mls/hr IV .Q24H ADAM Rx#:[id number] Output: Urine 700 250 Other: # Voids 1 ABP, PAP, CO, CI - Last 8 Hours Arterial Blood Pressure 105/55 Arterial Blood Pressure 104/54 Arterial Blood Pressure 103/53 Arterial Blood Pressure 111/55 Arterial Blood Pressure 102/55 Arterial Blood Pressure 70/43 Arterial Blood Pressure 88/51 Arterial Blood Pressure 95/52 Arterial Blood Pressure 93/48 Arterial Blood Pressure 90/47 Arterial Blood Pressure 96/49 Arterial Blood Pressure 96/50 Arterial Blood Pressure 89/47 Physical Exam: Revealed a 70-year-old white male, in moderate severe respiratory distress. On BiPAP. Head: Atraumatic, normocephalic. HEENT:[Neck is supple.] [No neck masses.] [No thyromegaly.] [No JVD.] Chest: [Symmetrical expansion, crackles at the bases, rhonchi noted bilaterally. Cardiac Exam: [Normal S1 and S2, no S3 gallop, no murmur.] Abdomen: [Soft, nontender, no megaly, no rebound, no guarding, normal bowel sounds.] Extremities: [No clubbing, no edema, no cyanosis.] Good pulses bilaterally. Neurological Exam: [No focal neurologic deficit.] Alert and oriented 3. Psychiatric: Normal mood, affect and normal mental status examination. Skin: No rashes. Musculoskeletal: No deformities noted limitation in range of motion. Results - Laboratory Findings CBC and BMP: 03/24/20 05:44 03/24/20 05:44 ABG ABG pH 7.27 (7.35-7.45) L 03/24/20 11:11 ABG pCO2 39 mmHg (35-45) 03/24/20 11:11 ABG pO2 71 mmHg (83-108) L 03/24/20 11:11 ABG O2 Saturation 90.4 % (94-97) L 03/24/20 11:11 PT/INR, D-dimer PT 12.3 sec (9.0-12.0) H 03/22/20 07:29 INR 1.2 (<1.2) H 03/22/20 07:29 D-Dimer 4.09 mg/L FEU (<0.60) H 03/24/20 05:44 Abnormal lab findings: Abnormal Labs 03/22/20 03/22/20 03/22/20 07:29 07:29 07:29 WBC 12.5 H RBC Neutrophils # 11.1 H Lymphocytes # 0.3 L PT 12.3 H INR 1.2 H D-Dimer 1.43 H ABG pH ABG pO2 ABG HCO3 ABG Total CO2 ABG O2 Saturation Sodium 131 L Chloride Carbon Dioxide 21 L BUN Creatinine Glucose 130 H POC Glucose (mg/dL) Plasma Lactic Acid Galindo Calcium Magnesium 1.5 L Ferritin AST ALT 81 H Alkaline Phosphatase 167 H Creatine Kinase CK-MB (CK-2) Troponin I C-Reactive Protein Total Protein Albumin Procalcitonin Urine Protein Urine Ketones Urine Blood Urine WBC Amorphous Sediment Urine Bacteria Urine Mucus ALEX Screen 03/22/20 03/22/20 03/22/20 07:29 07:29 07:29 WBC RBC Neutrophils # Lymphocytes # PT INR D-Dimer ABG pH ABG pO2 ABG HCO3 ABG Total CO2 ABG O2 Saturation Sodium Chloride Carbon Dioxide BUN Creatinine Glucose POC Glucose (mg/dL) Plasma Lactic Acid Galindo Calcium Magnesium Ferritin 1772.6 H AST ALT Alkaline Phosphatase Creatine Kinase CK-MB (CK-2) Troponin I C-Reactive Protein 186.2 H Total Protein Albumin Procalcitonin 2.12 H Urine Protein Urine Ketones Urine Blood Urine WBC Amorphous Sediment Urine Bacteria Urine Mucus ALEX Screen POSITIVE A 03/22/20 03/23/20 03/23/20 08:16 06:32 06:32 WBC 20.1 H RBC Neutrophils # 19.3 H Lymphocytes # 0.3 L PT INR D-Dimer ABG pH ABG pO2 ABG HCO3 ABG Total CO2 ABG O2 Saturation Sodium Chloride Carbon Dioxide BUN Creatinine Glucose 185 H POC Glucose (mg/dL) Plasma Lactic Acid Galindo Calcium Magnesium 2.6 H Ferritin AST ALT Alkaline Phosphatase Creatine Kinase CK-MB (CK-2) Troponin I C-Reactive Protein Total Protein Albumin Procalcitonin Urine Protein 1+ H Urine Ketones 1+ H Urine Blood Small H Urine WBC Amorphous Sediment Urine Bacteria Urine Mucus Rare H ALEX Screen 03/24/20 03/24/20 03/24/20 01:43 04:44 05:44 WBC RBC Neutrophils # Lymphocytes # PT INR D-Dimer ABG pH 7.32 L ABG pO2 ABG HCO3 20 L ABG Total CO2 ABG O2 Saturation 93.8 L Sodium Chloride Carbon Dioxide BUN Creatinine Glucose POC Glucose (mg/dL) 203 H Plasma Lactic Acid Galindo Calcium Magnesium Ferritin AST ALT Alkaline Phosphatase Creatine Kinase CK-MB (CK-2) Troponin I C-Reactive Protein Total Protein Albumin Procalcitonin 45.07 H Urine Protein Urine Ketones Urine Blood Urine WBC Amorphous Sediment Urine Bacteria Urine Mucus ALEX Screen 03/24/20 03/24/20 03/24/20 05:44 05:44 05:44 WBC 34.0 H RBC 4.23 L Neutrophils # Lymphocytes # PT INR D-Dimer 4.09 H ABG pH ABG pO2 ABG HCO3 ABG Total CO2 ABG O2 Saturation Sodium 128 L Chloride 96 L Carbon Dioxide 19 L BUN 43 H Creatinine 2.22 H Glucose 179 H POC Glucose (mg/dL) Plasma Lactic Acid Galindo Calcium 8.1 L Magnesium 2.6 H Ferritin AST 64 H ALT 54 H Alkaline Phosphatase 150 H Creatine Kinase CK-MB (CK-2) Troponin I C-Reactive Protein 428.3 H Total Protein 6.0 L Albumin 3.1 L Procalcitonin Urine Protein Urine Ketones Urine Blood Urine WBC Amorphous Sediment Urine Bacteria Urine Mucus ALEX Screen 03/24/20 03/24/20 03/24/20 06:14 08:24 08:39 WBC RBC Neutrophils # Lymphocytes # PT INR D-Dimer ABG pH ABG pO2 ABG HCO3 ABG Total CO2 ABG O2 Saturation Sodium Chloride Carbon Dioxide BUN Creatinine Glucose POC Glucose (mg/dL) 185 H 179 H 185 H Plasma Lactic Acid Galindo Calcium Magnesium Ferritin AST ALT Alkaline Phosphatase Creatine Kinase CK-MB (CK-2) Troponin I C-Reactive Protein Total Protein Albumin Procalcitonin Urine Protein Urine Ketones Urine Blood Urine WBC Amorphous Sediment Urine Bacteria Urine Mucus ALEX Screen 03/24/20 03/24/20 03/24/20 09:08 09:08 09:08 WBC RBC Neutrophils # Lymphocytes # PT INR D-Dimer ABG pH ABG pO2 ABG HCO3 ABG Total CO2 ABG O2 Saturation Sodium Chloride Carbon Dioxide BUN Creatinine Glucose POC Glucose (mg/dL) Plasma Lactic Acid Galindo 2.1 H* Calcium Magnesium Ferritin AST ALT Alkaline Phosphatase Creatine Kinase 276 H CK-MB (CK-2) 15.0 H Troponin I 5.320 H* C-Reactive Protein Total Protein Albumin Procalcitonin Urine Protein Urine Ketones Urine Blood Urine WBC Amorphous Sediment Urine Bacteria Urine Mucus ALEX Screen 03/24/20 03/24/20 03/24/20 09:51 11:11 11:30 WBC RBC Neutrophils # Lymphocytes # PT INR D-Dimer ABG pH 7.23 L 7.27 L ABG pO2 57 L* 71 L ABG HCO3 17 L 18 L ABG Total CO2 18 L ABG O2 Saturation 82.5 L 90.4 L Sodium Chloride Carbon Dioxide BUN Creatinine Glucose POC Glucose (mg/dL) Plasma Lactic Acid Galindo Calcium Magnesium Ferritin AST ALT Alkaline Phosphatase Creatine Kinase CK-MB (CK-2) Troponin I C-Reactive Protein Total Protein Albumin Procalcitonin Urine Protein 2+ H Urine Ketones Urine Blood Moderate H Urine WBC 6 H Amorphous Sediment Rare H Urine Bacteria Rare H Urine Mucus Rare H ALEX Screen 03/24/20 12:02 WBC RBC Neutrophils # Lymphocytes # PT INR D-Dimer ABG pH ABG pO2 ABG HCO3 ABG Total CO2 ABG O2 Saturation Sodium Chloride Carbon Dioxide BUN Creatinine Glucose POC Glucose (mg/dL) 181 H Plasma Lactic Acid Galindo Calcium Magnesium Ferritin AST ALT Alkaline Phosphatase Creatine Kinase CK-MB (CK-2) Troponin I C-Reactive Protein Total Protein Albumin Procalcitonin Urine Protein Urine Ketones Urine Blood Urine WBC Amorphous Sediment Urine Bacteria Urine Mucus ALEX Screen - Diagnostic Findings Chest x-ray: image reviewed (As noted in HPI.) CT scan - chest: image reviewed Assessment and Plan Assessment: Impression: Acute hypoxic respiratory failure requiring intubation and mechanical ventilation, this is secondary to acute pneumonia, possible pneumonia secondary to Francisella tularensis, considering his most recent exposure to coyote Acute septic shock requiring pressors in the form of norepinephrine and vasopressin. Acute kidney injury, suspect acute tubular necrosis from hypotension and sepsis/septic shock. Acute diastolic congestive heart failure is also strongly suspected considering the dramatic change on chest x-ray before the patient was intubated. Cardiology to reevaluate the patient, and repeat echocardiogram was requested to rule out possible cardiac tamponade. History of underlying coronary artery disease. History of hypertension. Ex-smoker. Recommendation: Continue ventilatory support. Broaden the antibiotics coverage empirically. Nutritional support. GI prophylaxis. DVT prophylaxis. Hemodynamic support. Monitor daily labs, daily chest x-rays and daily ABGs. Prognosis is definitely guarded, Would consider bronchoscopy, however considering the patient oxygenation is marginal in spite of high FiO2 and high PEEP, patient will not tolerate bronchoscopy at this point. We'll continue to follow. Prognosis is extremely guarded. Critical care time is over 50 minutes not including the time spent on procedures Time with Patient: Greater than 30
--- NOTE | 2020-03-24 15:26 | P.PN ---
Subjective Progress Note Date: 03/24/20 Principal diagnosis: Acute hypoxic respiratory failure Patient is sedated and intubated at the time of my evaluation. His overall condition declined overnight and this morning with increased work of breathing and increase in oxygen requirement. Patient was transferred to the ICU and eventually intubated. He is currently on minimal vent settings. Objective - Vital Signs Vital signs: Vital Signs Temp 101 F H 03/24/20 12:00 Pulse 101 H 03/24/20 15:00 Resp 26 H 03/24/20 15:00 BP 105/68 03/24/20 15:00 Pulse Ox 93 L 03/24/20 15:00 Intake & Output 03/23/20 03/24/20 03/24/20 18:59 06:59 18:59 Intake Total 1322.023 Output Total 700 375 Balance -700 947.023 Intake: IV 1100 0.9 NACL 100 0.9 NACL bolus 1000 Intake, IV Titration 222.023 Amount Norepinephrine 32 mg In 122.023 Sodium Chloride 0.9% 218 ml @ 0.05 MCG/KG/MIN 2. 233 mls/hr IV .Q24H ADAM Rx#:[id number] propofoL 1,000 mg In 100 Empty Bag 1 bag @ Titrate IV .Q0M ADAM Rx#: [id number] Output: Urine 700 375 Other: # Voids 1 1 # Bowel Movements 1 ABP, PAP, CO, CI - Last Documented Arterial Blood Pressure 96/55 - Exam General: The patient is sedated and intubated Eye: there is normal conjunctiva bilaterally. Neck: The neck is supple, there is no JVD. Cardiovascular: Normal S1-S2, no S3-S4, no murmurs. Respiratory: Lungs mechanical ventilator sounds Gastrointestinal: Abdomen is soft, nontender Musculoskeletal: There is no pedal edema. Skin: Skin is warm and dry - Labs CBC & Chem 7: 03/24/20 05:44 03/24/20 05:44 Labs: Abnormal Lab Results - Last 24 Hours (Table) 03/24/20 03/24/20 03/24/20 Range/Units 01:43 04:44 05:44 WBC (3.8-10.6) k/uL RBC (4.30-5.90) m/uL D-Dimer (<0.60) mg/L FEU ABG pH 7.32 L (7.35-7.45) ABG pO2 (83-108) mmHg ABG HCO3 20 L (21-25) mmol/L ABG Total CO2 (19-24) mmol/L ABG O2 Saturation 93.8 L (94-97) % Sodium (137-145) mmol/L Chloride (98-107) mmol/L Carbon Dioxide (22-30) mmol/L BUN (9-20) mg/dL Creatinine (0.66-1.25) mg/dL Glucose (74-99) mg/dL POC Glucose (mg/dL) 203 H (75-99) mg/dL Plasma Lactic Acid Galindo (0.7-2.0) mmol/L Calcium (8.4-10.2) mg/dL Magnesium (1.6-2.3) mg/dL AST (17-59) U/L ALT (4-49) U/L Alkaline Phosphatase (38-126) U/L Creatine Kinase (55-170) U/L CK-MB (CK-2) (0.0-2.4) ng/mL Troponin I (0.000-0.034) ng/mL C-Reactive Protein (<10.0) mg/L Total Protein (6.3-8.2) g/dL Albumin (3.5-5.0) g/dL Procalcitonin 45.07 H (0.02-0.09) ng/mL Urine Protein (Negative) Urine Blood (Negative) Urine WBC (0-5) /hpf Amorphous Sediment (None) /hpf Urine Bacteria (None) /hpf Urine Mucus (None) /hpf 03/24/20 03/24/20 03/24/20 Range/Units 05:44 05:44 05:44 WBC 34.0 H (3.8-10.6) k/uL RBC 4.23 L (4.30-5.90) m/uL D-Dimer 4.09 H (<0.60) mg/L FEU ABG pH (7.35-7.45) ABG pO2 (83-108) mmHg ABG HCO3 (21-25) mmol/L ABG Total CO2 (19-24) mmol/L ABG O2 Saturation (94-97) % Sodium 128 L (137-145) mmol/L Chloride 96 L (98-107) mmol/L Carbon Dioxide 19 L (22-30) mmol/L BUN 43 H (9-20) mg/dL Creatinine 2.22 H (0.66-1.25) mg/dL Glucose 179 H (74-99) mg/dL POC Glucose (mg/dL) (75-99) mg/dL Plasma Lactic Acid Galindo (0.7-2.0) mmol/L Calcium 8.1 L (8.4-10.2) mg/dL Magnesium 2.6 H (1.6-2.3) mg/dL AST 64 H (17-59) U/L ALT 54 H (4-49) U/L Alkaline Phosphatase 150 H (38-126) U/L Creatine Kinase (55-170) U/L CK-MB (CK-2) (0.0-2.4) ng/mL Troponin I (0.000-0.034) ng/mL C-Reactive Protein 428.3 H (<10.0) mg/L Total Protein 6.0 L (6.3-8.2) g/dL Albumin 3.1 L (3.5-5.0) g/dL Procalcitonin (0.02-0.09) ng/mL Urine Protein (Negative) Urine Blood (Negative) Urine WBC (0-5) /hpf Amorphous Sediment (None) /hpf Urine Bacteria (None) /hpf Urine Mucus (None) /hpf 03/24/20 03/24/20 03/24/20 Range/Units 06:14 08:24 08:39 WBC (3.8-10.6) k/uL RBC (4.30-5.90) m/uL D-Dimer (<0.60) mg/L FEU ABG pH (7.35-7.45) ABG pO2 (83-108) mmHg ABG HCO3 (21-25) mmol/L ABG Total CO2 (19-24) mmol/L ABG O2 Saturation (94-97) % Sodium (137-145) mmol/L Chloride (98-107) mmol/L Carbon Dioxide (22-30) mmol/L BUN (9-20) mg/dL Creatinine (0.66-1.25) mg/dL Glucose (74-99) mg/dL POC Glucose (mg/dL) 185 H 179 H 185 H (75-99) mg/dL Plasma Lactic Acid Galindo (0.7-2.0) mmol/L Calcium (8.4-10.2) mg/dL Magnesium (1.6-2.3) mg/dL AST (17-59) U/L ALT (4-49) U/L Alkaline Phosphatase (38-126) U/L Creatine Kinase (55-170) U/L CK-MB (CK-2) (0.0-2.4) ng/mL Troponin I (0.000-0.034) ng/mL C-Reactive Protein (<10.0) mg/L Total Protein (6.3-8.2) g/dL Albumin (3.5-5.0) g/dL Procalcitonin (0.02-0.09) ng/mL Urine Protein (Negative) Urine Blood (Negative) Urine WBC (0-5) /hpf Amorphous Sediment (None) /hpf Urine Bacteria (None) /hpf Urine Mucus (None) /hpf 03/24/20 03/24/20 03/24/20 Range/Units 09:08 09:08 09:08 WBC (3.8-10.6) k/uL RBC (4.30-5.90) m/uL D-Dimer (<0.60) mg/L FEU ABG pH (7.35-7.45) ABG pO2 (83-108) mmHg ABG HCO3 (21-25) mmol/L ABG Total CO2 (19-24) mmol/L ABG O2 Saturation (94-97) % Sodium (137-145) mmol/L Chloride (98-107) mmol/L Carbon Dioxide (22-30) mmol/L BUN (9-20) mg/dL Creatinine (0.66-1.25) mg/dL Glucose (74-99) mg/dL POC Glucose (mg/dL) (75-99) mg/dL Plasma Lactic Acid Galindo 2.1 H* (0.7-2.0) mmol/L Calcium (8.4-10.2) mg/dL Magnesium (1.6-2.3) mg/dL AST (17-59) U/L ALT (4-49) U/L Alkaline Phosphatase (38-126) U/L Creatine Kinase 276 H (55-170) U/L CK-MB (CK-2) 15.0 H (0.0-2.4) ng/mL Troponin I 5.320 H* (0.000-0.034) ng/mL C-Reactive Protein (<10.0) mg/L Total Protein (6.3-8.2) g/dL Albumin (3.5-5.0) g/dL Procalcitonin (0.02-0.09) ng/mL Urine Protein (Negative) Urine Blood (Negative) Urine WBC (0-5) /hpf Amorphous Sediment (None) /hpf Urine Bacteria (None) /hpf Urine Mucus (None) /hpf 03/24/20 03/24/20 03/24/20 Range/Units 09:51 11:11 11:30 WBC (3.8-10.6) k/uL RBC (4.30-5.90) m/uL D-Dimer (<0.60) mg/L FEU ABG pH 7.23 L 7.27 L (7.35-7.45) ABG pO2 57 L* 71 L (83-108) mmHg ABG HCO3 17 L 18 L (21-25) mmol/L ABG Total CO2 18 L (19-24) mmol/L ABG O2 Saturation 82.5 L 90.4 L (94-97) % Sodium (137-145) mmol/L Chloride (98-107) mmol/L Carbon Dioxide (22-30) mmol/L BUN (9-20) mg/dL Creatinine (0.66-1.25) mg/dL Glucose (74-99) mg/dL POC Glucose (mg/dL) (75-99) mg/dL Plasma Lactic Acid Galindo (0.7-2.0) mmol/L Calcium (8.4-10.2) mg/dL Magnesium (1.6-2.3) mg/dL AST (17-59) U/L ALT (4-49) U/L Alkaline Phosphatase (38-126) U/L Creatine Kinase (55-170) U/L CK-MB (CK-2) (0.0-2.4) ng/mL Troponin I (0.000-0.034) ng/mL C-Reactive Protein (<10.0) mg/L Total Protein (6.3-8.2) g/dL Albumin (3.5-5.0) g/dL Procalcitonin (0.02-0.09) ng/mL Urine Protein 2+ H (Negative) Urine Blood Moderate H (Negative) Urine WBC 6 H (0-5) /hpf Amorphous Sediment Rare H (None) /hpf Urine Bacteria Rare H (None) /hpf Urine Mucus Rare H (None) /hpf 03/24/20 Range/Units 12:02 WBC (3.8-10.6) k/uL RBC (4.30-5.90) m/uL D-Dimer (<0.60) mg/L FEU ABG pH (7.35-7.45) ABG pO2 (83-108) mmHg ABG HCO3 (21-25) mmol/L ABG Total CO2 (19-24) mmol/L ABG O2 Saturation (94-97) % Sodium (137-145) mmol/L Chloride (98-107) mmol/L Carbon Dioxide (22-30) mmol/L BUN (9-20) mg/dL Creatinine (0.66-1.25) mg/dL Glucose (74-99) mg/dL POC Glucose (mg/dL) 181 H (75-99) mg/dL Plasma Lactic Acid Galindo (0.7-2.0) mmol/L Calcium (8.4-10.2) mg/dL Magnesium (1.6-2.3) mg/dL AST (17-59) U/L ALT (4-49) U/L Alkaline Phosphatase (38-126) U/L Creatine Kinase (55-170) U/L CK-MB (CK-2) (0.0-2.4) ng/mL Troponin I (0.000-0.034) ng/mL C-Reactive Protein (<10.0) mg/L Total Protein (6.3-8.2) g/dL Albumin (3.5-5.0) g/dL Procalcitonin (0.02-0.09) ng/mL Urine Protein (Negative) Urine Blood (Negative) Urine WBC (0-5) /hpf Amorphous Sediment (None) /hpf Urine Bacteria (None) /hpf Urine Mucus (None) /hpf Microbiology - Last 24 Hours (Table) 03/24/20 10:30 Sputum Culture - Preliminary Sputum 03/22/20 13:51 Blood Culture - Preliminary Blood No Growth after 24 hours Assessment and Plan Assessment: Patient is a 70-year-old male with a past medical history noted below who prese nted with a chief complaint of chest pain. Patient was evaluated in the ER and was noted to have evidence of sepsis with possible underlying pneumonia. He was admitted to the hospital and ACS was ruled out. He was started on antibiotic with IV ceftriaxone and oral azithromycin. He was a high suspicion for COVID-19 on initial presentation secondary to elevated inflammatory markers and his clini chantel presentation. COVID-19 test was negative twice including a rapid and a traditional PCR test. Patient was seen and evaluated by cardiology on presentation and ACS was ruled out. Echocardiogram showed a preserved ejection fraction with no significant wall motion abnormalities. On the morning on 03/23, his clinical condition started to deteriorate with increased oxygen requirement and increased work of breathing requiring transfer to the intensive care unit. Patient was eventually sedated and intubated requiring mechanical ventilation. Nose list of his medical problems addressed during this hospitalization. 1. Acute hypoxic respiratory failure requiring intubation and mechanical venti lation on 03/24. This may be attributed to flash pulmonary edema and suspected underlying pneumonia. Patient was seen and evaluated by pulmonology. He is currently in the ICU and ventilator being managed by ICU team. 2. Suspected acute diastolic heart failure exacerbation. With evidence of flas h pulmonary edema on chest x-ray and significantly elevated BNP. Echocardiogram on presentation showed a preserved ejection fraction and no significant valvular abnormalities. Repeat echocardiogram ordered by cardiology to assess any deterioration in left ventricular function. Hold diuresis at this time secondary to hypotension. 3. Left lower lobe pneumonia: There was a concern about possible francisella tularensis infection given history provided by family the patient was hunting coyotes. He was started initially on IV ceftriaxone and oral azithromycin and antibiotic changed to doxycycline and Levaquin on 03/24. Sputum culture ordered. COVID-19 and influenza screen negative on admission 4. Severe sepsis with septic shock, requiring vasopressors. Managed by ICU team. Lactic acid normal. 5. Chest pain with pleurisy on presentation: ACS ruled out. EKG on presentation with no acute ischemic changes. Troponin was negative on presentation. CT PE protocol negative for PE. 6. Elevated troponin, troponin was positive on 03/24, most likely secondary to supply demand mismatch given septic shock. Cardiology following and the repeat echocardiogram ordered. 7. Acute kidney injury with suspected ATN, continue aggressive IV fluid hydration. Repeat lab work in the morning. Monitor urine output closely. If not improving may consider nephrology consultation 8. Hypomagnesemia and hyponatremia, on presentation now resolved 9. Chronic medical problems: Hyperlipidemia, hypertension, GERD 10. GI and DVT prophylaxis with IV Protonix and subcu Lovenox 11. CODE STATUS patient is full code
[2020-03-24] MEDS ORDERED: HYDROmorphone 0.5 MG/0.5 ML SYRINGE IVP PRN (16:00)
[2020-03-24] MEDS: HYDROmorphone 0.5 MG/0.5 ML SYRINGE IVP SCH ×4 (16:33→22:50)
--- NOTE | 2020-03-24 17:44 | OP ---
OPERATIVE REPORT OPERATIVE REPORT: Placement of right radial arterial line. PREOPERATIVE DIAGNOSIS: Acute hypoxic respiratory failure and hypotension. POSTOPERATIVE DIAGNOSIS: Acute hypoxic respiratory failure and hypotension. ANESTHESIA USED: None deployed. PROCEDURE DESCRIPTION: The right wrist was prepared in a sterile fashion. Drapes were applied. The right radial artery was palpated, cannulated easily, and a guidewire was placed. A Cook's catheter was inserted over the guidewire, and the guidewire was removed. Good blood flow, good waveform noted. No evidence of any immediate complications. The line was secured using 3.0 silk sutures. MMODL / IJN: [id number] /
--- NOTE | 2020-03-24 17:44 | OP ---
OPERATIVE REPORT OPERATIVE REPORT: Placement of right IJ triple-lumen catheter. PREOPERATIVE DIAGNOSIS: Acute hypoxic respiratory failure requiring intubation and mechanical ventilation with hypotension. POSTOPERATIVE DIAGNOSIS: Acute hypoxic respiratory failure requiring intubation and mechanical ventilation with hypotension. ANESTHESIA USED: 2 mL of 1% lidocaine. PROCEDURE DESCRIPTION: The patient was placed in a Trendelenburg position. The right cervical region was prepared in a sterile fashion. Drapes were applied. The area of behind the posterior belly of the sternocleidomastoid muscle was locally anesthetized. Then using the posterior approach, the right internal jugular vein was cannulated easily. A guidewire was placed. The area around the guidewire was dilated. Then a triple-lumen catheter was inserted over the guidewire and the guidewire was removed. Good blood flow noted in the 3 different ports of the triple-lumen catheter. Chest x-ray showed adequate placement of the line, and no evidence of any immediate complications. MMODL / IJN: [id number] /
[2020-03-24 18:51] LABS: Glucose,Whole Blood 255 mg/dL (75-99)
[2020-03-24] MEDS: INSULIN ASPART (NovoLOG) 100 UNIT/ML VIAL SQ SCH (19:09)
[2020-03-24] MEDS ORDERED: NOREPINEPHRINE 4 MG in SODIUM CHLORIDE 0.9% 250 ML IV SCH (22:30)
--- NOTE | 2020-03-24 23:19 | P.CONS ---
History of Present Illness - Reason for Consult Consult date: 03/24/20 sepsis Requesting physician: Kayley Núñez - Chief Complaint chest pain x 1 day - History of Present Illness Patient is a 70-year-old male presented to [facility] ER on March 22, 2020 for evaluation of chest pain, currently the patient woke up around midnight with chest pain described the pain to be more of a pressure-like radiating across his chest and hurts when he takes a deep breath patient apparently has symptom similar to that off and on for about a week before presentation to the hospital patient denies any fever or chills to the ER physi megan on arrival to the ER patient did have low-grade fever 100 for an height subsequently that afternoon on the he did spike a fever of 103 F patient was initially on the fifth floor and subsequently was transferred to the cardiac floor with the patient did have acute deterioration 18 was called and the patient was subsequently transferred to the ICU with the patient ended up getting intubated. Work-up so far including CT angiogram done on admission there was negative for PE and did not show any acute infiltrate patient repeat chest x-ray on the evening of did shows developing left lower lobe infiltrate patient did have a white count of 12.1 on admission which was up to 20,000 yesterday and is up to 34,000 today patient did have sams PCR x2 - influenza PCR is negative urine is negative patient did have a normal creatinine on admission though his creatinine is up to 2.22 today he did have a elevated CRP and also elevated procalcitonin of 2.12 on admission ALT was mildly elevated most of this information has been obtained from review the chart and nursing staff the patient is currently intubated on the vent does not report any history apparently the patient did get a coyote few days before his symptoms started and he did have to drag the cayote for a few miles Review of Systems Positive point has been mentioned in HPI complete review could not be obtained because of underlying mental status Past Medical History Past Medical History: GERD/Reflux, Hyperlipidemia, Hypertension, Myocardial Infarction ([place]), Renal Disease Additional Past Medical History / Comment(s): Mild [place] per EKG, lower back pain/2 herniated discs and vertebrae cracked, cervical pain since diving injury, pt has passed renal stones. Last Myocardial Infarction Date:: unkn History of Any Multi-Drug Resistant Organisms: None Reported Past Surgical History: Orthopedic Surgery Additional Past Surgical History / Comment(s): L knee arthroscopy, colonoscopy Past Anesthesia/Blood Transfusion Reactions: No Reported Reaction Smoking Status: Former smoker - Past Family History Father Family Medical History: Liver Disease Additional Family Medical History / Comment(s): Father of liver cirrhosis. Mother Family Medical History: Cancer Additional Family Medical History / Comment(s): Mother of lung cancer. She was a smoker. Brother(s) Family Medical History: Coronary Artery Disease (CAD) Additional Family Medical History / Comment(s): Brother had a [place] at the age of 46 yrs. Medications and Allergies Home Medications Medication Instructions Recorded Confirmed Type Acetaminophen/Diphenhydramine 1 tab PO HS 03/22/20 03/22/20 History [Tylenol PM 500-25mg] Aspirin EC [Ecotrin Low Dose] 81 mg PO DAILY 03/22/20 03/22/20 History Atorvastatin Calcium [Lipitor] 40 mg PO DAILY 03/22/20 03/22/20 History Losartan Potassium [Cozaar] 100 mg PO DAILY 03/22/20 03/22/20 History Omeprazole 40 mg PO DAILY 03/22/20 03/22/20 History amLODIPine [Norvasc] 10 mg PO DAILY 03/22/20 03/22/20 History Allergies Allergy/AdvReac Type Severity Reaction Status Date / Time No Known Allergies Allergy Verified 03/22/20 07:57 Physical Exam Vitals: Vital Signs Temp Pulse Pulse Resp BP BP Pulse Ox 03/24/20 22:00 107 H 26 H 94/64 95 03/24/20 21:45 107 H 26 H 94 L 03/24/20 21:30 107 H 26 H 94 L 03/24/20 21:15 108 H 26 H 95 03/24/20 21:00 107 H 26 H 89/63 93 L 03/24/20 20:45 108 H 26 H 93 L 03/24/20 20:30 108 H 26 H 93 L 03/24/20 20:15 108 H 26 H 93 L 03/24/20 20:10 109 H 03/24/20 20:00 98.2 F 108 H 26 H 98/63 94 L 03/24/20 19:45 105 H 26 H 93 L 03/24/20 19:42 105 H 03/24/20 19:30 105 H 26 H 93 L 03/24/20 19:15 104 H 26 H 101/63 93 L 03/24/20 19:00 103 H 26 H 92 L 03/24/20 18:00 101 H 26 H 92 L 03/24/20 17:00 100 26 H 92 L 03/24/20 16:30 101 H 26 H 93 L 03/24/20 16:00 99.7 F H 101 H 26 H 103/66 92 L 03/24/20 15:47 100 03/24/20 15:33 101 H 03/24/20 15:30 101 H 26 H 92 L 03/24/20 15:00 101 H 26 H 105/68 93 L 03/24/20 14:45 101 H 26 H 93 L 03/24/20 14:30 101 H 26 H 94 L 03/24/20 14:15 101 H 26 H 94 L 03/24/20 14:00 101 H 26 H 93 L 03/24/20 13:45 101 H 26 H 109/68 94 L 03/24/20 13:30 101 H 26 H 80/59 94 L 03/24/20 13:15 101 H 26 H 80/59 94 L 03/24/20 13:00 103 H 26 H 80/59 94 L 03/24/20 12:45 105 H 26 H 80/59 95 03/24/20 12:30 106 H 26 H 80/59 95 03/24/20 12:10 108 H 26 H 80/59 94 L 03/24/20 12:00 101 F H 102 H 24 92 L 03/24/20 11:50 103 H 24 78/63 90 L 03/24/20 11:45 102 H 03/24/20 11:40 101 H 37 H 78/63 87 L 03/24/20 11:30 101 H 24 78/63 91 L 03/24/20 11:20 101 H 32 H 78/63 92 L 03/24/20 11:10 100 27 H 78/63 92 L 03/24/20 11:00 100 26 H 78/63 89 L 03/24/20 10:50 98 26 H 89 L 03/24/20 10:40 97 26 H 102/58 88 L 03/24/20 10:30 99 26 H 104/55 89 L 03/24/20 10:20 102 H 35 H 91/64 87 L 03/24/20 10:10 98 35 H 94/65 87 L 03/24/20 10:00 96 31 H 102/67 86 L 03/24/20 09:50 96 23 93/56 85 L 03/24/20 09:40 81 24 71/46 86 L 03/24/20 09:30 99 22 73/55 83 L 03/24/20 09:20 78 20 79/62 85 L 03/24/20 09:10 99 31 H 79/62 94 L 03/24/20 09:00 98 30 H 84/68 94 L 03/24/20 08:50 99 34 H 80/64 94 L 03/24/20 08:40 100 49 H 89/61 93 L 03/24/20 08:39 98 31 H 93 L 03/24/20 08:19 72/59 03/24/20 07:54 97 33 H 93/55 95 03/24/20 07:49 82/55 03/24/20 07:47 97.3 F L 98 31 H 96/52 94 L 03/24/20 05:31 97.0 F L 99 31 H 93/57 94 L 03/24/20 05:07 100/66 96 03/24/20 04:45 98.2 F 97 26 H 99/66 94 L 03/24/20 03:33 98.2 F 103 H 116/69 92 L 03/24/20 02:01 112 H 03/24/20 01:50 102 H 03/24/20 01:45 98.2 F 103 H 18 99/65 92 L 03/24/20 01:00 103 H 30 H Intake and Output 03/24/20 03/24/20 03/25/20 14:59 22:59 06:59 Intake Total 1308.023 863.215 Output Total 325 470 Balance 983.023 393.215 Intake: IV 1086 305 0.9 NACL 80 160 0.9 NACL bolus 1000 Doxycycline 100 mg In 100 Sodium Chloride 0.9% 100 ml @ 100 mls/hr IVPB Q12HR [facility] Rx#:[id number] Pressure bag 6 45 Intake, IV Titration 222.023 558.215 Amount Cisatracurium 200 mg In 21.812 Sodium Chloride 0.9% 180 ml @ 1 MCG/KG/MIN 5.715 mls/hr IV .Q24H [facility] Rx#: [id number] Norepinephrine 32 mg In 122.023 337.053 Sodium Chloride 0.9% 218 ml @ 0.05 MCG/KG/MIN 2. 233 mls/hr IV .Q24H [facility] Rx#:[id number] propofoL 1,000 mg In 100 199.350 Empty Bag 1 bag @ Titrate IV .Q0M [facility] Rx#: [id number] Output: Gastric Drainage 250 Urine 325 220 ABP, PAP, CO, CI - Last 8 Hours Arterial Blood Pressure 85/55 Arterial Blood Pressure 84/53 Arterial Blood Pressure 80/58 Arterial Blood Pressure 95/58 Arterial Blood Pressure 82/59 Arterial Blood Pressure 81/54 Arterial Blood Pressure 71/61 Arterial Blood Pressure 84/55 Arterial Blood Pressure 82/54 Arterial Blood Pressure 86/52 Arterial Blood Pressure 87/53 Arterial Blood Pressure 87/52 Arterial Blood Pressure 90/53 Arterial Blood Pressure 88/53 Arterial Blood Pressure 89/53 Arterial Blood Pressure 92/55 Arterial Blood Pressure 90/58 Arterial Blood Pressure 90/55 GENERAL DESCRIPTION: Elderly male intubated on the vent, no distress. No tachypnea or accessory muscle of respiration use. HEENT: Shows Pallor , no scleral icterus. Oral mucous membrane is dry. NECK: Trachea central, no thyromegaly. LUNGS: Unlabored breathing. Decrease intensity of breath sounds HEART: S1, S2, regular rate and rhythm. ABDOMEN: Soft, no tenderness , guarding or rigidity EXTREMITIES: No edema of feet. SKIN: No rash, no masses palpable. NEUROLOGICAL: The patient is sedated on the vent Results CBC & Chem 7: 03/24/20 05:44 03/24/20 05:44 Labs: Abnormal Lab Results - Last 24 Hours (Table) 03/24/20 03/24/20 03/24/20 Range/Units 01:43 04:44 05:44 WBC (3.8-10.6) k/uL RBC (4.30-5.90) m/uL D-Dimer (<0.60) mg/L FEU ABG pH 7.32 L (7.35-7.45) ABG pO2 (83-108) mmHg ABG HCO3 20 L (21-25) mmol/L ABG Total CO2 (19-24) mmol/L ABG O2 Saturation 93.8 L (94-97) % Sodium (137-145) mmol/L Chloride (98-107) mmol/L Carbon Dioxide (22-30) mmol/L BUN (9-20) mg/dL Creatinine (0.66-1.25) mg/dL Glucose (74-99) mg/dL POC Glucose (mg/dL) 203 H (75-99) mg/dL Plasma Lactic Acid Galindo (0.7-2.0) mmol/L Calcium (8.4-10.2) mg/dL Magnesium (1.6-2.3) mg/dL AST (17-59) U/L ALT (4-49) U/L Alkaline Phosphatase (38-126) U/L Creatine Kinase (55-170) U/L CK-MB (CK-2) (0.0-2.4) ng/mL Troponin I (0.000-0.034) ng/mL C-Reactive Protein (<10.0) mg/L Total Protein (6.3-8.2) g/dL Albumin (3.5-5.0) g/dL Procalcitonin 45.07 H (0.02-0.09) ng/mL Urine Protein (Negative) Urine Blood (Negative) Urine WBC (0-5) /hpf Amorphous Sediment (None) /hpf Urine Bacteria (None) /hpf Urine Mucus (None) /hpf 03/24/20 03/24/20 03/24/20 Range/Units 05:44 05:44 05:44 WBC 34.0 H (3.8-10.6) k/uL RBC 4.23 L (4.30-5.90) m/uL D-Dimer 4.09 H (<0.60) mg/L FEU ABG pH (7.35-7.45) ABG pO2 (83-108) mmHg ABG HCO3 (21-25) mmol/L ABG Total CO2 (19-24) mmol/L ABG O2 Saturation (94-97) % Sodium 128 L (137-145) mmol/L Chloride 96 L (98-107) mmol/L Carbon Dioxide 19 L (22-30) mmol/L BUN 43 H (9-20) mg/dL Creatinine 2.22 H (0.66-1.25) mg/dL Glucose 179 H (74-99) mg/dL POC Glucose (mg/dL) (75-99) mg/dL Plasma Lactic Acid Galindo (0.7-2.0) mmol/L Calcium 8.1 L (8.4-10.2) mg/dL Magnesium 2.6 H (1.6-2.3) mg/dL AST 64 H (17-59) U/L ALT 54 H (4-49) U/L Alkaline Phosphatase 150 H (38-126) U/L Creatine Kinase (55-170) U/L CK-MB (CK-2) (0.0-2.4) ng/mL Troponin I (0.000-0.034) ng/mL C-Reactive Protein 428.3 H (<10.0) mg/L Total Protein 6.0 L (6.3-8.2) g/dL Albumin 3.1 L (3.5-5.0) g/dL Procalcitonin (0.02-0.09) ng/mL Urine Protein (Negative) Urine Blood (Negative) Urine WBC (0-5) /hpf Amorphous Sediment (None) /hpf Urine Bacteria (None) /hpf Urine Mucus (None) /hpf 03/24/20 03/24/20 03/24/20 Range/Units 06:14 08:24 08:39 WBC (3.8-10.6) k/uL RBC (4.30-5.90) m/uL D-Dimer (<0.60) mg/L FEU ABG pH (7.35-7.45) ABG pO2 (83-108) mmHg ABG HCO3 (21-25) mmol/L ABG Total CO2 (19-24) mmol/L ABG O2 Saturation (94-97) % Sodium (137-145) mmol/L Chloride (98-107) mmol/L Carbon Dioxide (22-30) mmol/L BUN (9-20) mg/dL Creatinine (0.66-1.25) mg/dL Glucose (74-99) mg/dL POC Glucose (mg/dL) 185 H 179 H 185 H (75-99) mg/dL Plasma Lactic Acid Galindo (0.7-2.0) mmol/L Calcium (8.4-10.2) mg/dL Magnesium (1.6-2.3) mg/dL AST (17-59) U/L ALT (4-49) U/L Alkaline Phosphatase (38-126) U/L Creatine Kinase (55-170) U/L CK-MB (CK-2) (0.0-2.4) ng/mL Troponin I (0.000-0.034) ng/mL C-Reactive Protein (<10.0) mg/L Total Protein (6.3-8.2) g/dL Albumin (3.5-5.0) g/dL Procalcitonin (0.02-0.09) ng/mL Urine Protein (Negative) Urine Blood (Negative) Urine WBC (0-5) /hpf Amorphous Sediment (None) /hpf Urine Bacteria (None) /hpf Urine Mucus (None) /hpf 03/24/20 03/24/20 03/24/20 Range/Units 09:08 09:08 09:08 WBC (3.8-10.6) k/uL RBC (4.30-5.90) m/uL D-Dimer (<0.60) mg/L FEU ABG pH (7.35-7.45) ABG pO2 (83-108) mmHg ABG HCO3 (21-25) mmol/L ABG Total CO2 (19-24) mmol/L ABG O2 Saturation (94-97) % Sodium (137-145) mmol/L Chloride (98-107) mmol/L Carbon Dioxide (22-30) mmol/L BUN (9-20) mg/dL Creatinine (0.66-1.25) mg/dL Glucose (74-99) mg/dL POC Glucose (mg/dL) (75-99) mg/dL Plasma Lactic Acid Galindo 2.1 H* (0.7-2.0) mmol/L Calcium (8.4-10.2) mg/dL Magnesium (1.6-2.3) mg/dL AST (17-59) U/L ALT (4-49) U/L Alkaline Phosphatase (38-126) U/L Creatine Kinase 276 H (55-170) U/L CK-MB (CK-2) 15.0 H (0.0-2.4) ng/mL Troponin I 5.320 H* (0.000-0.034) ng/mL C-Reactive Protein (<10.0) mg/L Total Protein (6.3-8.2) g/dL Albumin (3.5-5.0) g/dL Procalcitonin (0.02-0.09) ng/mL Urine Protein (Negative) Urine Blood (Negative) Urine WBC (0-5) /hpf Amorphous Sediment (None) /hpf Urine Bacteria (None) /hpf Urine Mucus (None) /hpf 03/24/20 03/24/20 03/24/20 Range/Units 09:51 11:11 11:30 WBC (3.8-10.6) k/uL RBC (4.30-5.90) m/uL D-Dimer (<0.60) mg/L FEU ABG pH 7.23 L 7.27 L (7.35-7.45) ABG pO2 57 L* 71 L (83-108) mmHg ABG HCO3 17 L 18 L (21-25) mmol/L ABG Total CO2 18 L (19-24) mmol/L ABG O2 Saturation 82.5 L 90.4 L (94-97) % Sodium (137-145) mmol/L Chloride (98-107) mmol/L Carbon Dioxide (22-30) mmol/L BUN (9-20) mg/dL Creatinine (0.66-1.25) mg/dL Glucose (74-99) mg/dL POC Glucose (mg/dL) (75-99) mg/dL Plasma Lactic Acid Galindo (0.7-2.0) mmol/L Calcium (8.4-10.2) mg/dL Magnesium (1.6-2.3) mg/dL AST (17-59) U/L ALT (4-49) U/L Alkaline Phosphatase (38-126) U/L Creatine Kinase (55-170) U/L CK-MB (CK-2) (0.0-2.4) ng/mL Troponin I (0.000-0.034) ng/mL C-Reactive Protein (<10.0) mg/L Total Protein (6.3-8.2) g/dL Albumin (3.5-5.0) g/dL Procalcitonin (0.02-0.09) ng/mL Urine Protein 2+ H (Negative) Urine Blood Moderate H (Negative) Urine WBC 6 H (0-5) /hpf Amorphous Sediment Rare H (None) /hpf Urine Bacteria Rare H (None) /hpf Urine Mucus Rare H (None) /hpf 03/24/20 03/24/20 03/24/20 Range/Units 12:02 18:49 19:09 WBC (3.8-10.6) k/uL RBC (4.30-5.90) m/uL D-Dimer (<0.60) mg/L FEU ABG pH (7.35-7.45) ABG pO2 (83-108) mmHg ABG HCO3 (21-25) mmol/L ABG Total CO2 (19-24) mmol/L ABG O2 Saturation (94-97) % Sodium (137-145) mmol/L Chloride (98-107) mmol/L Carbon Dioxide (22-30) mmol/L BUN (9-20) mg/dL Creatinine (0.66-1.25) mg/dL Glucose (74-99) mg/dL POC Glucose (mg/dL) 181 H 255 H (75-99) mg/dL Plasma Lactic Acid Galindo (0.7-2.0) mmol/L Calcium (8.4-10.2) mg/dL Magnesium (1.6-2.3) mg/dL AST (17-59) U/L ALT (4-49) U/L Alkaline Phosphatase (38-126) U/L Creatine Kinase (55-170) U/L CK-MB (CK-2) (0.0-2.4) ng/mL Troponin I 3.710 H* (0.000-0.034) ng/mL C-Reactive Protein (<10.0) mg/L Total Protein (6.3-8.2) g/dL Albumin (3.5-5.0) g/dL Procalcitonin (0.02-0.09) ng/mL Urine Protein (Negative) Urine Blood (Negative) Urine WBC (0-5) /hpf Amorphous Sediment (None) /hpf Urine Bacteria (None) /hpf Urine Mucus (None) /hpf Microbiology - Last 24 Hours (Table) 03/22/20 13:51 Blood Culture - Preliminary Blood No Growth after 48 hours 03/24/20 10:30 Sputum Culture - Preliminary Sputum Assessment and Plan Assessment: Patient with sepsis in this patient who did have a fever of 103 F with the white count of 34,000 and acute respiratory failure worsened with developing pneumonia likely the source of his sepsis in this patient with a question of possible stenotic pneumonia such as tolerating because of exposure to wild animal versus bacterial pneumonia, will need to cover for both type of pathogen while waiting for his work-up to be completed and culture finalized (1) Sepsis Current Visit: Yes Status: Acute Code(s): A41.9 - SEPSIS, UNSPECIFIED ORGANISM SNOMED Code(s): 82427619 (2) Pneumonia Current Visit: Yes Status: Acute Code(s): J18.9 - PNEUMONIA, UNSPECIFIED ORGANISM SNOMED Code(s): 807752238 Plan: 1-Sputum for Gram stain and culture 2-We will check antibodies to the F.Tularensis 3-Check urine for Legionella antigen 4-Continue with doxycycline and Levaquin gentamicin would not be advised in view of worsening of his kidney function, however we will add Zosyn 3.375 g every 8 hours We will follow on clinical condition and cultures to further adjust medication if needed Thank you for this consultation we will follow the patient along with you Time with Patient: Greater than 30
[2020-03-24 23:54] LABS: Glucose,Whole Blood 236 mg/dL (75-99)
[2020-03-25] MEDS: PIPERACILLIN-TAZOBACTAM 3.375 GM in SODIUM CHLORIDE 0.9% 100 ML IVPB SCH ×4 (00:02→23:44)
[2020-03-25] MEDS: INSULIN ASPART (NovoLOG) 100 UNIT/ML VIAL SQ SCH ×5 (00:03→23:44)
[2020-03-25] MEDS: HYDROmorphone 0.5 MG/0.5 ML SYRINGE IVP SCH ×13 (00:03→23:43)
[2020-03-25] MEDS ORDERED: SODIUM CHLORIDE 0.9% 1,000 ML IV ONE ×3 (03:18→08:37)
[2020-03-25 04:09] LABS: Basophils # (A) 0.1 k/uL (0-0.2); Basophils % (A) 0 %; Eosinophils # (A) 0.1 k/uL (0-0.7); Eosinophils % (A) 0 %; HGB 12.3 gm/dL (13.0-17.5); Lymphocytes # (A) 0.4 k/uL (1.0-4.8); Lymphocytes % (A) 1 %; MCH 32.8 pg (25.0-35.0); MCHC 34.3 g/dL (31.0-37.0); MCV 95.9 fL (80.0-100.0); Mean Platelet Volume 7.7; Monocytes # (A) 0.8 k/uL (0-1.0); Monocytes % (A) 2 %; Neutrophils % (A) 97 %; Platelet Count 355 k/uL (150-450); RBC 3.75 m/uL (4.30-5.90); RDW 13.6 % (11.5-15.5); WBC 43.6 k/uL (3.8-10.6)
[2020-03-25 04:25] LABS: Albumin 2.5 g/dL (3.5-5.0); Calcium 7.2 mg/dL (8.4-10.2); Potassium 4.1 mmol/L (3.5-5.1); Total Bilirubin 1.7 mg/dL (0.2-1.3); Total Protein 5.1 g/dL (6.3-8.2)
[2020-03-25] MEDS: NOREPINEPHRINE 32 MG in SODIUM CHLORIDE 0.9% 218 ML IV SCH ×4 (04:26→23:43)
[2020-03-25 04:54] LABS: Toxic Vacuolation Present
[2020-03-25 05:05] LABS: ABG Base Excess -9.7 mmol/L; ABG HCO3 18 mmol/L (21-25); ABG PCO2 40 mmHg (35-45); ABG PH 7.25 (7.35-7.45); ABG PO2 86 mmHg (83-108); ABG TCO2 19 mmol/L (19-24); Allen Test Performed? Yes
[2020-03-25] MEDS: CISATRACURIUM 200 MG in SODIUM CHLORIDE 0.9% 180 ML IV SCH (05:45)
[2020-03-25 06:27] LABS: Glucose,Whole Blood 188 mg/dL (75-99)
[2020-03-25] MEDS: IPRATROPIUM-ALBUTEROL 3 ML NEB INHALATION SCH ×4 (07:10→19:04)
[2020-03-25] MEDS: SODIUM CHLORIDE 0.9% 1,000 ML IV SCH ×2 (07:14→20:11)
[2020-03-25] MEDS ORDERED: SODIUM BICARB 8.4% 50 ML SYR (1 MEQ/ML) IV STA ×2 (08:26→08:37)
--- NOTE | 2020-03-25 08:32 | PN ---
PROGRESS NOTE Mr. Choudhury developed severe respiratory distress requiring intubation and ICU transfer yesterday. I spent quite a bit of time reviewing his record from the office and here. This is a very remarkably active gentleman without any evidence of coronary disease based on a stress test 2-1/2 years ago and normal LV function by echo on this hospitalization. He has probably some active bacterial infection with white count almost over 40,000. So far bacterial cultures are negative, but the chest x-ray suggests multiple opacities in bilateral lung shen suggestive of a pneumonia/ARDS type picture. The patient's troponin went up to 5.0 and has come down to less than 3.7. Clinically, the whole picture suggests more of a bacterial pneumonia with sepsis and possible ARDS. There is no evidence to suggest primary myocardial injury on this patient. He does have a strong family history of CAD and hypertension, but there is no evidence to suggest any primary myocardial injury. Elevated troponin up to 5 is also probably related to hypoxia and oxygen mismatch. He is on Levophed. Blood pressure is in the mid 90s. Urine output is very scanty. Creatinine is going up. Hypoxia is evident. There is also acute renal injury at this time. On examination, S1-S2 heard distantly. Respiratory assisted breath sounds are noted. Lower extremities reveal diminished pulses. Central nervous system assessment is not possible. Prognosis remains quite poor. I am recommending that we continue septic workup and antibiotics as outlined by Dr. Lamb. We will seek Infectious Disease consult and Nephrology consult. Prognosis remains poor overall. MMODL / IJN: [id number] /
[2020-03-25] MEDS: CHLORHEXIDINE GLUCONATE 15 ML CUP MUCOUS MEM SCH ×2 (08:56→20:09)
[2020-03-25] MEDS: DOXYCYCLINE 100 MG in SODIUM CHLORIDE 0.9% 100 ML IVPB SCH ×2 (08:56→20:09)
[2020-03-25] MEDS: ATORVASTATIN 40 MG TAB PO SCH (08:56)
[2020-03-25] MEDS: ASPIRIN 81 MG PO SCH (08:56)
[2020-03-25] MEDS: ENOXAPARIN 30 MG/0.3 ML SYRINGE SQ SCH (08:57)
[2020-03-25] MEDS: PANTOPRAZOLE 40 MG/10 ML VIAL IVP SCH ×2 (08:57→10:30)
--- NOTE | 2020-03-25 10:04 | XR ---
EXAMINATION TYPE: XR chest 1V portable DATE OF EXAM: 03/25/2020 COMPARISON: 03/24/2020 INDICATION: Tube placement TECHNIQUE: Single frontal view of the chest is obtained. FINDINGS: The heart size is upper limits of normal. The pulmonary vasculature is normal. Mild right lower lobe infiltrate is present. A small left pleural effusion is present. Endotracheal tube tip is above antoinette. Nasogastric tube transverses the thorax. Right central venous catheter tip is in the proximal right atrium. IMPRESSION: 1. Mild right lower lobe infiltrate, worsening. 2. Small left pleural effusion. 3. Lines and catheters above.
[2020-03-25 10:25] LABS: ABG Base Excess -9.4 mmol/L; ABG HCO3 18 mmol/L (21-25); ABG Oxygen Saturation 94.2 % (94-97); ABG PCO2 42 mmHg (35-45); ABG PH 7.24 (7.35-7.45); ABG PO2 88 mmHg (83-108); ABG TCO2 19 mmol/L (19-24)
[2020-03-25 10:26] LABS: Allen Test Performed? no
[2020-03-25] MEDS: DEXTROSE 5% IN WATER 1,000 ML with SODIUM BICARB (1 MEQ/ML) 150 ML IV SCH (11:39)
--- NOTE | 2020-03-25 11:51 | P.PN ---
Subjective Progress Note Date: 03/25/20 Principal diagnosis: Acute hypoxic respiratory failure Patient's overall condition is worsening. He is requiring higher doses of vasopressors and this morning. Vent settings have been increased this morning as well. Urine output decreasing. Objective - Vital Signs Vital signs: Vital Signs Temp 99.6 F 03/25/20 08:00 Pulse 113 H 03/25/20 11:30 Resp 26 H 03/25/20 11:15 BP 113/69 03/25/20 11:15 Pulse Ox 94 L 03/25/20 11:15 Intake & Output 03/24/20 03/25/20 03/25/20 18:59 06:59 18:59 Intake Total 6004.477 5211.770 1530.696 Output Total 710 200 15 Balance 424.513 0291.770 1515.696 Weight 104.9 kg 104.9 kg Intake: IV 1187 438 104 0.9 NACL 160 260 80 0.9 NACL bolus 1000 Doxycycline 100 mg In 100 Sodium Chloride 0.9% 100 ml @ 100 mls/hr IVPB Q12HR [facility] Rx#:[id number] Pressure bag 27 78 24 Intake, IV Titration 430.888 259.842 3286.696 Amount Cisatracurium 200 mg In 21.812 158.686 Sodium Chloride 0.9% 180 ml @ 1 MCG/KG/MIN 5.715 mls/hr IV .Q24H [facility] Rx#: [id number] Doxycycline 100 mg In 100 Sodium Chloride 0.9% 100 ml @ 100 mls/hr IVPB Q12HR [facility] Rx#:[id number] Norepinephrine 32 mg In 209.076 549.567 126.696 Sodium Chloride 0.9% 218 ml @ 0.05 MCG/KG/MIN 2. 233 mls/hr IV .Q24H [facility] Rx#:[id number] Piperacillin-Tazobactam 3 100 .375 gm In Sodium Chloride 0.9% 100 ml @ 25 mls/hr IVPB Q8HR [facility] Rx# :[id number] Sodium Chloride 0.9% 1, 1000 000 ml @ 999 mls/hr IV . Q1H1M [facility] Rx#:[id number] propofoL 1,000 mg In 200 238.517 100 Empty Bag 1 bag @ Titrate IV .Q0M [facility] Rx#: [id number] Output: Gastric Drainage 250 Urine 460 200 15 Other: Voiding Method Indwelling Catheter ABP, PAP, CO, CI - Last Documented Arterial Blood Pressure 98/58 - Exam General: The patient is sedated and intubated Eye: there is normal conjunctiva bilaterally. Neck: The neck is supple, there is no JVD. Cardiovascular: Normal S1-S2, no S3-S4, no murmurs. Respiratory: Lungs mechanical ventilator sounds Gastrointestinal: Abdomen is soft, nontender Musculoskeletal: There is no pedal edema. Skin: Skin is warm and dry - Labs CBC & Chem 7: 03/25/20 03:55 03/25/20 03:55 Labs: Abnormal Lab Results - Last 24 Hours (Table) 03/24/20 03/24/20 03/24/20 Range/Units 11:30 12:02 18:49 WBC (3.8-10.6) k/uL RBC (4.30-5.90) m/uL Hgb (13.0-17.5) gm/dL Hct (39.0-53.0) % Neutrophils # (1.3-7.7) k/uL Lymphocytes # (1.0-4.8) k/uL ABG pH (7.35-7.45) ABG HCO3 (21-25) mmol/L Sodium (137-145) mmol/L Carbon Dioxide (22-30) mmol/L BUN (9-20) mg/dL Creatinine (0.66-1.25) mg/dL Glucose (74-99) mg/dL POC Glucose (mg/dL) 181 H 255 H (75-99) mg/dL Calcium (8.4-10.2) mg/dL Total Bilirubin (0.2-1.3) mg/dL Alkaline Phosphatase (38-126) U/L Troponin I (0.000-0.034) ng/mL C-Reactive Protein (<10.0) mg/L Total Protein (6.3-8.2) g/dL Albumin (3.5-5.0) g/dL Procalcitonin (0.02-0.09) ng/mL Urine Protein 2+ H (Negative) Urine Blood Moderate H (Negative) Urine WBC 6 H (0-5) /hpf Amorphous Sediment Rare H (None) /hpf Urine Bacteria Rare H (None) /hpf Urine Mucus Rare H (None) /hpf 03/24/20 03/24/20 03/25/20 Range/Units 19:09 23:53 03:55 WBC (3.8-10.6) k/uL RBC (4.30-5.90) m/uL Hgb (13.0-17.5) gm/dL Hct (39.0-53.0) % Neutrophils # (1.3-7.7) k/uL Lymphocytes # (1.0-4.8) k/uL ABG pH (7.35-7.45) ABG HCO3 (21-25) mmol/L Sodium (137-145) mmol/L Carbon Dioxide (22-30) mmol/L BUN (9-20) mg/dL Creatinine (0.66-1.25) mg/dL Glucose (74-99) mg/dL POC Glucose (mg/dL) 236 H (75-99) mg/dL Calcium (8.4-10.2) mg/dL Total Bilirubin (0.2-1.3) mg/dL Alkaline Phosphatase (38-126) U/L Troponin I 3.710 H* (0.000-0.034) ng/mL C-Reactive Protein (<10.0) mg/L Total Protein (6.3-8.2) g/dL Albumin (3.5-5.0) g/dL Procalcitonin 73.94 H (0.02-0.09) ng/mL Urine Protein (Negative) Urine Blood (Negative) Urine WBC (0-5) /hpf Amorphous Sediment (None) /hpf Urine Bacteria (None) /hpf Urine Mucus (None) /hpf 03/25/20 03/25/20 03/25/20 Range/Units 03:55 03:55 03:55 WBC 43.6 H (3.8-10.6) k/uL RBC 3.75 L (4.30-5.90) m/uL Hgb 12.3 L (13.0-17.5) gm/dL Hct 36.0 L (39.0-53.0) % Neutrophils # 42.0 H (1.3-7.7) k/uL Lymphocytes # 0.4 L (1.0-4.8) k/uL ABG pH (7.35-7.45) ABG HCO3 (21-25) mmol/L Sodium 133 L (137-145) mmol/L Carbon Dioxide 16 L (22-30) mmol/L BUN 55 H (9-20) mg/dL Creatinine 3.40 H (0.66-1.25) mg/dL Glucose 212 H (74-99) mg/dL POC Glucose (mg/dL) (75-99) mg/dL Calcium 7.2 L (8.4-10.2) mg/dL Total Bilirubin 1.7 H (0.2-1.3) mg/dL Alkaline Phosphatase 157 H (38-126) U/L Troponin I (0.000-0.034) ng/mL C-Reactive Protein 545.8 H (<10.0) mg/L Total Protein 5.1 L (6.3-8.2) g/dL Albumin 2.5 L (3.5-5.0) g/dL Procalcitonin (0.02-0.09) ng/mL Urine Protein (Negative) Urine Blood (Negative) Urine WBC (0-5) /hpf Amorphous Sediment (None) /hpf Urine Bacteria (None) /hpf Urine Mucus (None) /hpf 03/25/20 03/25/20 03/25/20 Range/Units 05:00 06:25 10:23 WBC (3.8-10.6) k/uL RBC (4.30-5.90) m/uL Hgb (13.0-17.5) gm/dL Hct (39.0-53.0) % Neutrophils # (1.3-7.7) k/uL Lymphocytes # (1.0-4.8) k/uL ABG pH 7.25 L 7.24 L (7.35-7.45) ABG HCO3 18 L 18 L (21-25) mmol/L Sodium (137-145) mmol/L Carbon Dioxide (22-30) mmol/L BUN (9-20) mg/dL Creatinine (0.66-1.25) mg/dL Glucose (74-99) mg/dL POC Glucose (mg/dL) 188 H (75-99) mg/dL Calcium (8.4-10.2) mg/dL Total Bilirubin (0.2-1.3) mg/dL Alkaline Phosphatase (38-126) U/L Troponin I (0.000-0.034) ng/mL C-Reactive Protein (<10.0) mg/L Total Protein (6.3-8.2) g/dL Albumin (3.5-5.0) g/dL Procalcitonin (0.02-0.09) ng/mL Urine Protein (Negative) Urine Blood (Negative) Urine WBC (0-5) /hpf Amorphous Sediment (None) /hpf Urine Bacteria (None) /hpf Urine Mucus (None) /hpf Microbiology - Last 24 Hours (Table) 03/24/20 09:08 Blood Culture - Preliminary Blood No Growth after 24 hours 03/24/20 10:30 Gram Stain - Preliminary Sputum Sputum Culture - Preliminary 03/22/20 13:51 Blood Culture - Preliminary Blood No Growth after 48 hours Assessment and Plan Assessment: Patient is a 70-year-old male with a past medical history noted below who presented with a chief complaint of chest pain. Patient was evaluated in the ER and was noted to have evidence of sepsis with possible underlying pneumonia. He was admitted to the hospital and ACS was ruled out. He was started on antibiotic with IV ceftriaxone and oral azithromycin. He was a high suspicion for COVID-19 on initial presentation secondary to elevated inflammatory markers and his clinical presentation. COVID-19 test was negative twice including a rapid and a traditional PCR test. Patient was seen and evaluated by cardiology on presentation and ACS was ruled out. Echocardiogram showed a preserved ejection fraction with no significant wall motion abnormalities. On the morning on 03/23, his clinical condition started to deteriorate with increased oxygen requirement and increased work of breathing requiring transfer to the intensive care unit. Patient was eventually sedated and intubated requiring mechanical ventilation. Nose list of his medical problems addressed during this hospitalization. 1. Acute hypoxic respiratory failure requiring intubation and mechanical ventilation on 03/24. This is most likely secondary to underlying pneumonia with ARDS. Possible flash pulmonary edema secondary to acute heart failure exacerbation with repeat echocardiogram. Patient was seen and evaluated by pulmonology. He is currently in the ICU and ventilator being managed by ICU te am. 2. Suspected acute diastolic heart failure exacerbation. With evidence of flash pulmonary edema on chest x-ray and significantly elevated BNP. Echocardiogram on presentation showed a preserved ejection fraction and no significant valvular abnormalities. Repeat echocardiogram ordered to assess any deterioration in left ventricular function. Patient received multiple doses of IV Lasix 3. Left lower lobe pneumonia: There was a concern about possible francisella tularensis infection given history provided by family the patient was hunting coyotes. He was started initially on IV ceftriaxone and oral azithromycin and antibiotic changed to doxycycline and Levaquin on 03/24. Zosyn added by infectious disease. Sputum culture ordered. COVID-19 and influenza screen negative on admission 4. Severe sepsis with septic shock, requiring vasopressors. Managed by ICU team. 5. Chest pain with pleurisy on presentation: ACS ruled out. EKG on presentation with no acute ischemic changes. Troponin was negative on presentation. CT PE protocol negative for PE. 6. Elevated troponin, troponin was positive on 03/24, most likely secondary to supply demand mismatch given septic shock. Cardiology following and the repeat echocardiogram ordered. 7. Acute kidney injury with suspected ATN, continue aggressive IV fluid hydration. Nephrology consulted for further evaluation. Repeat lab work in the morning. Monitor urine output closely. 8. Hypomagnesemia and hyponatremia, on presentation now resolved 9. Chronic medical problems: Hyperlipidemia, hypertension, GERD 10. GI and DVT prophylaxis with IV Protonix and subcu Lovenox 11. CODE STATUS patient is full code
[2020-03-25 12:08] LABS: Glucose,Whole Blood 196 mg/dL (75-99)
--- NOTE | 2020-03-25 12:28 | P.PN ---
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 This is a 70-year-old white male with history of hypertension and underlying coronary artery disease, patient was admitted yesterday with intermittent episod es of chest pains, pleuritic in nature, associated with dry cough, fever, chills, and diaphoresis for almost one week. Patient was initially seen in the ER on 03/21/2020, and he was discharged home in stable condition. His workup was basically nondiagnostic. And his chest x-ray was normal. The week prior to his presentation, patient shot a coyote, and he had to drag the coyote about 3-4 miles. Apparently he started having chest pain at the time of dragging the coyote, and his pain resolved as he rested. Over the following week, patient has been experiencing diffuse chest discomfort with deep inspiration, had no radiation of the pain, he had mostly intermittent episodes of cough, fever, chills, and that is when he came to the ER. Again patient was admitted on 03/22/2020, CT angiogram of the chest was done, and it was basically normal. There was no evidence of pulmonary embolism, no evidence of infiltrate, minimal left basilar atelectasis was noted. Chest x-ray upon admission was also normal. 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 His temperature upon admission was ranging between 100 and 103. Patient was treated empirically with antibioti cs in the form of Rocephin and Zithromax, however this morning patient was transferred to the ICU mostly because of worsening shortness of breath, worsening chest x-ray, hypotension, patient was placed on BiPAP, however he remained marginal and his overall pulmonary status, and upon my evaluation in the ICU, patient clearly needed to be intubated and placed on mechanical ventilation as he was clearly hypotensive, febrile, and he was also noted to have very marginal O2 saturation on 100% BiPAP. Discussed with the patient the need for intubation mechanical ventilation, he agreed, and the patient was intubated and placed on mechanical ventilation. Patient required also placement on norepinephrine, vasopressin, and his antibiotics coverage was broadened. Cardiology was asked to reevaluate him because of his increased troponin and his increase BNP level. Chest x-ray showed initially evidence of interstitial edema and possible underlying pneumonia. Post intubation, follow-up chest x-ray showed cardiomegaly, possible multifocal bilateral opacities a greater in the mid and lower lungs. Hence we'll broaden the spectrum of his antibiotics coverage, and the patient required to be placed on high FiO2, required high PEEP, and follow-up ABG done showed a pO2 of 71 pCO2 of 39 pH of 7.27 and this was on 100% FiO2, and PEEP of 10. Reevaluated today on 03/25/2020, patient remains in the ICU, intubated and mechanically ventilated. He is now on FiO2 of 80% assist control rate of 26, tidal volume is 450, PEEP at 12, however after reviewing his follow-up ABG this morning 2, I was able to cut down his FiO2 down to 65%, and the PEEP was increased to 14. Patient is on propofol at 40 mcg/kg/m, IV fluid at 75 mL per hour, sodium bicarb drip at 50 ML per hour vasopressin at 0.03 units per minute. Is also on norepinephrine at 0.75 mcg/kg/m, and the Nimbex at 1.5. Patient is also on Dilaudid 0.5 mg every 2 hours around the clock. Patient was started on enteral feeding today. Antibiotics ramon he is on doxycycline, Levaquin, and Zosyn was added by infectious disease on the case. Pro-calcitonin level is on the rise, it is 73.94, this is extremely high level. WBC count is up to 43.6. C-reactive protein is 545 chest x-ray is showing worsening right lower lobe infiltrate. Small left pleural effusion, lines and catheters are in proper positions ABG today showed a pO2 of 88 pCO2 of 42 pH of 7.24, hence the patient will remain on 65% FiO2, PEEP of 14, otherwise remaining vent settings will be unchanged. He is on assist control rate of 26 and tidal volume is 450. Patient was seen by infectious disease on consultation, Zosyn was added empirically in addition to doxycycline and Levaquin. Enteral feeding will be started today on this patient, and this would be addressing his nutritional support. Patient remains on GI and DVT prophylaxis. Objective - Vital Signs Vital signs: Vital Signs Temp 99.6 F 03/25/20 08:00 Pulse 113 H 03/25/20 11:30 Resp 26 H 03/25/20 11:15 BP 113/69 03/25/20 11:15 Pulse Ox 94 L 03/25/20 11:15 Intake & Output 03/24/20 03/25/20 03/25/20 18:59 06:59 18:59 Intake Total 9669.359 6293.770 1530.696 Output Total 710 200 15 Balance 104.375 2131.770 1515.696 Weight 104.9 kg 104.9 kg Intake: IV 1187 438 104 0.9 NACL 160 260 80 0.9 NACL bolus 1000 Doxycycline 100 mg In 100 Sodium Chloride 0.9% 100 ml @ 100 mls/hr IVPB Q12HR [facility] Rx#:[id number] Pressure bag 27 78 24 Intake, IV Titration 430.888 109.811 9995.696 Amount Cisatracurium 200 mg In 21.812 158.686 Sodium Chloride 0.9% 180 ml @ 1 MCG/KG/MIN 5.715 mls/hr IV .Q24H [facility] Rx#: [id number] Doxycycline 100 mg In 100 Sodium Chloride 0.9% 100 ml @ 100 mls/hr IVPB Q12HR [facility] Rx#:[id number] Norepinephrine 32 mg In 209.076 549.567 126.696 Sodium Chloride 0.9% 218 ml @ 0.05 MCG/KG/MIN 2. 233 mls/hr IV .Q24H [facility] Rx#:[id number] Piperacillin-Tazobactam 3 100 .375 gm In Sodium Chloride 0.9% 100 ml @ 25 mls/hr IVPB Q8HR [facility] Rx# :[id number] Sodium Chloride 0.9% 1, 1000 000 ml @ 999 mls/hr IV . Q1H1M [facility] Rx#:[id number] propofoL 1,000 mg In 200 238.517 100 Empty Bag 1 bag @ Titrate IV .Q0M [facility] Rx#: [id number] Output: Gastric Drainage 250 Urine 460 200 15 Other: Voiding Method Indwelling Catheter ABP, PAP, CO, CI - Last Documented Arterial Blood Pressure 98/58 - Exam Physical Exam: Revealed a 70-year-old white male, intubated, sedated, paralyzed, on mechanical ventilation Head: Atraumatic, normocephalic. Endotracheal tube and orogastric tube are intact HEENT:[Neck is supple.] [No neck masses.] [No thyromegaly.] [No JVD.] Right IJ triple-lumen catheter is noted. Chest: [Symmetrical expansion, crackles at the bases him a specially in the right base. Cardiac Exam: [Normal S1 and S2, no S3 gallop, no murmur.] Abdomen: [Soft, nontender, no megaly, no rebound, no guarding, normal bowel sounds.] Extremities: [No clubbing, no edema, no cyanosis.] Good pulses bilaterally. Neurological Exam: Could not be assessed, patient is sedated and paralyzed. Psychiatric: Could not be assessed. Skin: No rashes. Musculoskeletal: No deformities noted limitation in range of motion. - Labs CBC & Chem 7: 03/25/20 03:55 03/25/20 03:55 Labs: Abnormal Lab Results - Last 24 Hours (Table) 03/24/20 03/24/20 03/24/20 Range/Units 18:49 19:09 23:53 WBC (3.8-10.6) k/uL RBC (4.30-5.90) m/uL Hgb (13.0-17.5) gm/dL Hct (39.0-53.0) % Neutrophils # (1.3-7.7) k/uL Lymphocytes # (1.0-4.8) k/uL ABG pH (7.35-7.45) ABG HCO3 (21-25) mmol/L Sodium (137-145) mmol/L Carbon Dioxide (22-30) mmol/L BUN (9-20) mg/dL Creatinine (0.66-1.25) mg/dL Glucose (74-99) mg/dL POC Glucose (mg/dL) 255 H 236 H (75-99) mg/dL Calcium (8.4-10.2) mg/dL Total Bilirubin (0.2-1.3) mg/dL Alkaline Phosphatase (38-126) U/L Troponin I 3.710 H* (0.000-0.034) ng/mL C-Reactive Protein (<10.0) mg/L Total Protein (6.3-8.2) g/dL Albumin (3.5-5.0) g/dL Procalcitonin (0.02-0.09) ng/mL 03/25/20 03/25/20 03/25/20 Range/Units 03:55 03:55 03:55 WBC 43.6 H (3.8-10.6) k/uL RBC 3.75 L (4.30-5.90) m/uL Hgb 12.3 L (13.0-17.5) gm/dL Hct 36.0 L (39.0-53.0) % Neutrophils # 42.0 H (1.3-7.7) k/uL Lymphocytes # 0.4 L (1.0-4.8) k/uL ABG pH (7.35-7.45) ABG HCO3 (21-25) mmol/L Sodium (137-145) mmol/L Carbon Dioxide (22-30) mmol/L BUN (9-20) mg/dL Creatinine (0.66-1.25) mg/dL Glucose (74-99) mg/dL POC Glucose (mg/dL) (75-99) mg/dL Calcium (8.4-10.2) mg/dL Total Bilirubin (0.2-1.3) mg/dL Alkaline Phosphatase (38-126) U/L Troponin I (0.000-0.034) ng/mL C-Reactive Protein 545.8 H (<10.0) mg/L Total Protein (6.3-8.2) g/dL Albumin (3.5-5.0) g/dL Procalcitonin 73.94 H (0.02-0.09) ng/mL 03/25/20 03/25/20 03/25/20 Range/Units 03:55 05:00 06:25 WBC (3.8-10.6) k/uL RBC (4.30-5.90) m/uL Hgb (13.0-17.5) gm/dL Hct (39.0-53.0) % Neutrophils # (1.3-7.7) k/uL Lymphocytes # (1.0-4.8) k/uL ABG pH 7.25 L (7.35-7.45) ABG HCO3 18 L (21-25) mmol/L Sodium 133 L (137-145) mmol/L Carbon Dioxide 16 L (22-30) mmol/L BUN 55 H (9-20) mg/dL Creatinine 3.40 H (0.66-1.25) mg/dL Glucose 212 H (74-99) mg/dL POC Glucose (mg/dL) 188 H (75-99) mg/dL Calcium 7.2 L (8.4-10.2) mg/dL Total Bilirubin 1.7 H (0.2-1.3) mg/dL Alkaline Phosphatase 157 H (38-126) U/L Troponin I (0.000-0.034) ng/mL C-Reactive Protein (<10.0) mg/L Total Protein 5.1 L (6.3-8.2) g/dL Albumin 2.5 L (3.5-5.0) g/dL Procalcitonin (0.02-0.09) ng/mL 03/25/20 03/25/20 Range/Units 10:23 12:07 WBC (3.8-10.6) k/uL RBC (4.30-5.90) m/uL Hgb (13.0-17.5) gm/dL Hct (39.0-53.0) % Neutrophils # (1.3-7.7) k/uL Lymphocytes # (1.0-4.8) k/uL ABG pH 7.24 L (7.35-7.45) ABG HCO3 18 L (21-25) mmol/L Sodium (137-145) mmol/L Carbon Dioxide (22-30) mmol/L BUN (9-20) mg/dL Creatinine (0.66-1.25) mg/dL Glucose (74-99) mg/dL POC Glucose (mg/dL) 196 H (75-99) mg/dL Calcium (8.4-10.2) mg/dL Total Bilirubin (0.2-1.3) mg/dL Alkaline Phosphatase (38-126) U/L Troponin I (0.000-0.034) ng/mL C-Reactive Protein (<10.0) mg/L Total Protein (6.3-8.2) g/dL Albumin (3.5-5.0) g/dL Procalcitonin (0.02-0.09) ng/mL Microbiology - Last 24 Hours (Table) 03/24/20 09:08 Blood Culture - Preliminary Blood No Growth after 24 hours 03/24/20 10:30 Gram Stain - Preliminary Sputum Sputum Culture - Preliminary 03/22/20 13:51 Blood Culture - Preliminary Blood No Growth after 48 hours Assessment and Plan Assessment: Impression: Acute hypoxic respiratory failure requiring intubation and mechanical ventilation, this is secondary to acute pneumonia, 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 Titers for Francisella are pending. Sputum cultures are pending. Would have considered bronchoscopy and lavage on this patient, however his oxygenation status is marginal, will continue to treat empirically. Acute septic shock requiring pressors in the form of norepinephrine and vasopressin. Acute kidney injury, suspect acute tubular necrosis from hypotension and sepsis/septic shock. Nephrology was consulted, patient may have to be considered for hemodialysis/ultrafiltration if his renal status continues to deteriorate. Acute diastolic congestive heart failure is also strongly suspected considering the dramatic change on chest x-ray before the patient was intubated. Cardiology to reevaluate the patient, and repeat echocardiogram was requested to rule out possible cardiac tamponade. Repeat echocardiogram results are pending. History of underlying coronary artery disease. History of hypertension. Ex-smoker. Recommendation: Continue ventilatory support. Ventilator settings were adjusted. Presently on FiO2 of 65% and PEEP of 14. Continue antibiotics, patient is on doxycycline, Levaquin, and Zosyn. Nutritional support. Enteral feeding will be started today. GI prophylaxis. DVT prophylaxis. Hemodynamic support. Continue norepinephrine and continue vasopressin. Consider bronchoscopy if the oxygenation status improves a bit that the bronchoscopy could be tolerated. Patient remains critically ill. Prognosis is extremely guarded. Critical care time is 40 minutes. Time with Patient: Greater than 30
--- NOTE | 2020-03-25 12:36 | ECHOF ---
Referral Reason:cardiac tamponade MEASUREMENTS -------- HEIGHT: 172.7 cm WEIGHT: 95.3 kg BP: RAP: 5.00 mmHg RVSP: 51.63 mmHg FINDINGS -------- Pt had Echo done 03/22/20:limited study to r/o tamponade. Overall left ventricular systolic function is normal with, an EF between 55 - 60 %. Friu-kw-aultlaln mitral regurgitation is present. Oubx-ni-jtpmbolt tricuspid regurgitation present. There is no pericardial effusion. CONCLUSIONS -------- 1. Overall left ventricular systolic function is normal with, an EF between 55 - 60 %. 2. Xssr-as-aefhqjej mitral regurgitation is present. 3. Xrus-zs-fjfjdxqq tricuspid regurgitation present. 4. There is no pericardial effusion. [employer] CONSULTANT: Lizz Vazquez RDCS
[2020-03-25] MEDS: SODIUM CHLORIDE 0.9% 150 ML with VASOPRESSIN 60 UNIT IV SCH ×2 (12:56)
[2020-03-25] MEDS: LEVOFLOXACIN 250MG-D5W PMX 250 MG in DEXTROSE/WATER 1 50ML.BAG IVPB SCH (13:23)
[2020-03-25] MEDS: methylPREDNISolone SOD SUCCI 125 MG/2 ML VIAL IV SCH ×3 (13:23→23:44)
--- NOTE | 2020-03-25 15:28 | PN ---
PROGRESS NOTE DATE OF SERVICE: 03/25/2020 REASON FOR FOLLOWUP: Sepsis and pneumonia. INTERVAL HISTORY: The patient's overall fever pattern has improved. Last temperature was around noon yesterday of 101. He has had no fever since then. The patient remains intubated on the vent. FiO2 is currently at 65%. Still requiring pressor support to maintain his blood pressure. No significant purulent secretions through the ET or any diarrhea or any other changes reported by nursing staff. PHYSICAL EXAMINATION: Blood pressure 104/61, pulse of 110, temperature 98.9. He is 93% on 55% FiO2. General description is an elderly male, intubated on the vent. RESPIRATORY SYSTEM: Unlabored breathing with decreased intensity of breath sounds. No wheeze. HEART: S1, S2. Regular rate and rhythm. ABDOMEN: Soft. No tenderness. EXTREMITIES: No edema of the feet. LABS: Hemoglobin is 12.3, white count 43.6, BUN of 55, creatinine 3.40. DIAGNOSTIC IMPRESSION AND PLAN: Patient with sepsis with acute respiratory failure which is likely multifactorial with a component of pneumonia with a question of possible stenotic versus community- acquired. Patient is currently covered with Zosyn in addition to the Levaquin and doxycycline; to continue while waiting for the workup to be completed and the culture to finalize. Overall prognosis remains guarded. MMODL / IJN: [id number] /
--- NOTE | 2020-03-25 16:18 | CONS ---
CONSULTATION REASON FOR CONSULT: Renal failure. HISTORY OF PRESENT ILLNESS: Patient is a 70-year-old male who was initially admitted to the hospital on 03/22/2020 with complaints of weakness, shortness of breath. The patient was found to be in hypoxic respiratory failure and he was intubated. It appears that he had been out coyote hunting when he started experiencing symptoms of increased weakness, fever as high as 102 degrees Fahrenheit along with chest pains and difficulty in breathing. COVID test was negative. Since admission patient has been hypotensive. He is currently on the vent, maintained on high-dose Levophed along with vasopressin. Urine output remains poor. Initially the patient had about 200 mL of urine and then it decreased down to 10 to 15 and now it has been at about 5 mL/hour. Serum creatinine is 3.4 mg/dL today. On admission it was 1.04. Patient also has metabolic acidosis, for which he is being started on a bicarb drip. Potassium was 4.1. Chest x-ray shows persistent multifocal bilateral lobe opacities. Chest x-ray on initial admission did not reveal any significant findings. Patient also had a chest CTA done on 03/22/2020 which showed no evidence of PE, and no significant pulmonary infiltrates or masses were seen at that time. PAST MEDICAL HISTORY: Hypertension, gastroesophageal reflux disease, hyperlipidemia, history of NH, chronic back pain, history of kidney stones. PAST SURGICAL HISTORY: Left knee arthroscopy, colonoscopy. SOCIAL HISTORY: Patient is a former smoker. No history of drug abuse or alcohol abuse. MEDICATIONS: Medications prior to admission included aspirin, Lipitor, Cozaar, omeprazole, Norvasc, Tylenol. ALLERGIES: NONE. REVIEW OF SYSTEMS: Review of systems cannot be obtained currently no active GI bleed noted. The patient remains on the vent. FiO2 is at 60%. He is on high-dose pressors. PHYSICAL EXAMINATION: This morning blood pressure was 109/63. Patient is afebrile. Heart rate 112 per minute. EXAMINATION OF THE HEART: S1 and S2. EXAMINATION OF LUNGS: Bilateral breath sounds are heard. ABDOMEN: Soft, non-tender. Examination of lower extremities shows no evidence of edema. DATA REPORTING ANALYST exam cannot be performed, as patient is sedated. LABS: Sodium 133, potassium 4.1, chloride 102. CO2 is 16. BUN 55, serum creatinine 3.4, calcium 7.2, albumin 2.5. ASSESSMENT: 1. Acute kidney injury, acute tubular necrosis, oliguric, secondary to hypotension, shock and hypoperfusion. Patient will likely require renal replacement therapy. We will continue to evaluate on a daily basis for need for dialysis. We will most likely be performing the SLED procedure, given his significant hypotension. 2. Metabolic acidosis, anion gap, secondary to renal failure, currently being started on bicarb drip. 3. Severe sepsis with septic shock, maintained on antibiotics. Etiology is pneumonia. 4. Acute hypoxic respiratory failure, currently on mechanical ventilation secondary to acute pneumonia. 5. Acute pneumonia; possibility of Francisella tularensis, as patient had gone for [employer]. Titers for Francisella are pending. 6. History of coronary artery disease and myocardial infarction. 7. Proteinuria and hematuria noted on urinalysis with no significant white blood cells. Serologies show positive ALEX. PLAN: 1. The patient will likely require renal replacement therapy. We will continue to evaluate on a daily basis for need for dialysis. We will most likely be performing the SLED procedure, given his significant hypotension. 2. Check remaining serologies. However, given his underlying picture of pneumonia, doubt any other significant connective tissue disorder. The patient could still have renal failure associated with his current pneumonia. 3. Continue with pressors, antibiotics. May continue with the IV fluids for now. Overall prognosis is guarded. MMODL / IJN: [id number] /
[2020-03-25] MEDS ORDERED: FUROSEMIDE 10 MG/ML 10 ML VIAL IV STA (17:09)
[2020-03-25 18:03] LABS: Glucose,Whole Blood 243 mg/dL (75-99)
[2020-03-25] MEDS ORDERED: INSULIN DETEMIR (LEVEMIR) 100 UNIT/ML SYR SQ SCH (21:00)
[2020-03-25 23:35] LABS: Glucose,Whole Blood 271 mg/dL (75-99)
[2020-03-26] MEDS: CISATRACURIUM 200 MG in SODIUM CHLORIDE 0.9% 180 ML IV SCH (02:37)
[2020-03-26] MEDS: HYDROmorphone 0.5 MG/0.5 ML SYRINGE IVP SCH ×11 (02:39→23:06)
[2020-03-26 05:07] LABS: ABG Base Excess -9.3 mmol/L; ABG HCO3 18 mmol/L (21-25); ABG Oxygen Saturation 94.6 % (94-97); ABG PCO2 39 mmHg (35-45); ABG PH 7.26 (7.35-7.45); ABG PO2 90 mmHg (83-108); ABG TCO2 19 mmol/L (19-24); Allen Test Performed? Yes
[2020-03-26 05:24] LABS: Albumin 2.3 g/dL (3.5-5.0); Potassium 4.3 mmol/L (3.5-5.1); Total Bilirubin 2.3 mg/dL (0.2-1.3); Total Protein 5.1 g/dL (6.3-8.2)
[2020-03-26 05:36] LABS: Glucose,Whole Blood 278 mg/dL (75-99)
[2020-03-26 05:37] LABS: Basophils % (A) 0 %; Eosinophils % (A) 0 %; Lymphocytes # (A) 0.4 k/uL (1.0-4.8); Lymphocytes % (A) 2 %; MCH 32.2 pg (25.0-35.0); MCHC 33.3 g/dL (31.0-37.0); MCV 96.7 fL (80.0-100.0); Mean Platelet Volume 7.4; Monocytes # (A) 0.4 k/uL (0-1.0); Monocytes % (A) 2 %; Neutrophils # (A) 15.8 k/uL (1.3-7.7); Neutrophils % (A) 95 %; Platelet Count 286 k/uL (150-450); RBC 4.03 m/uL (4.30-5.90); RDW 14.3 % (11.5-15.5); WBC 16.8 k/uL (3.8-10.6)
[2020-03-26] MEDS: INSULIN ASPART (NovoLOG) 100 UNIT/ML VIAL SQ SCH ×5 (05:40→23:28)
[2020-03-26] MEDS: methylPREDNISolone SOD SUCCI 125 MG/2 ML VIAL IV SCH ×4 (05:41→23:06)
--- NOTE | 2020-03-26 06:39 | XR ---
EXAMINATION TYPE: XR chest 1V portable DATE OF EXAM: 03/26/2020 CLINICAL HISTORY: Difficulty breathing progress study. TECHNIQUE: Single AP portable semiupright view of the chest is obtained. COMPARISON: Chest x-ray from one day earlier and older studies. CTA chest March 22, 2020 FINDINGS: Stable endotracheal tube, orogastric tube, and right internal jugular central venous chloé ter. Stable mild cardiomegaly. Persistent bilateral opacities in the lower lungs are redemonstrated. Some continued improved aeration particularly peripheral mid lungs. Old fracture deformity right clavicle redemonstrated. IMPRESSION: Continued improving bilateral lower lung multifocal acute infiltrates.
[2020-03-26] MEDS: PIPERACILLIN-TAZOBACTAM 3.375 GM in SODIUM CHLORIDE 0.9% 100 ML IVPB SCH ×2 (07:02→20:04)
[2020-03-26] MEDS: NOREPINEPHRINE 32 MG in SODIUM CHLORIDE 0.9% 218 ML IV SCH ×2 (07:30→18:55)
[2020-03-26] MEDS: IPRATROPIUM-ALBUTEROL 3 ML NEB INHALATION SCH ×4 (07:45→20:22)
[2020-03-26 09:29] LABS: Glucose,Whole Blood 266 mg/dL (75-99)
[2020-03-26] MEDS: ASPIRIN 81 MG PO SCH (09:41)
[2020-03-26] MEDS: ATORVASTATIN 40 MG TAB PO SCH (09:41)
[2020-03-26] MEDS: PANTOPRAZOLE 40 MG/10 ML VIAL IVP SCH (09:41)
[2020-03-26] MEDS: CHLORHEXIDINE GLUCONATE 15 ML CUP MUCOUS MEM SCH ×2 (09:41→20:06)
[2020-03-26] MEDS: DOXYCYCLINE 100 MG in SODIUM CHLORIDE 0.9% 100 ML IVPB SCH ×2 (09:42→20:05)
[2020-03-26] MEDS: ENOXAPARIN 30 MG/0.3 ML SYRINGE SQ SCH (09:42)
--- NOTE | 2020-03-26 10:17 | PN ---
PROGRESS NOTE Mr. Choudhury has an unfortunate situation. He is quite hypoxic on 14 of PEEP and on a ventilator, having an acute renal injury with creatinine more than 5.0. The etiology of this deterioration seems quite unclear. His urine output is almost negligible. Creatinine is going up and he is on Levophed at 0.6 mcg/kg per minute. Overall prognosis remains poor. No growth in the urine or blood cultures. The patient is on a pressures including vasopressin and blood pressure is in the 95 to 100 range systolic. S1, S2 heard normally. Lungs reveal ventilator assisted breath sounds. Abdomen is soft. Rest of physical examination is unchanged. From a cardiac standpoint, I have no new specific suggestions. His clinical deterioration has really no cardiac etiology. I agree with the efforts of insole channeler Dr. Lamb. I have no new specific suggestions. Prognosis remains poor. Patient will probably benefit from dialysis today. MMODL / IJN: [id number] /
--- NOTE | 2020-03-26 11:02 | XR ---
EXAMINATION TYPE: XR abdomen 1V DATE OF EXAM: 03/26/2020 10:50 AM CLINICAL HISTORY: Abdominal distention. TECHNIQUE: Two supine portable KUB images of the abdomen are obtained. COMPARISON: Chest x-ray earlier today. FINDINGS: Suboptimal due to portable technique. Entire right abdomen also not included. Oral gastric tube position stable. Some residual gas in stomach. Paucity of gas. Scattered gas and fecal material in nondistended colon along the periphery. Tiny left pleural effusion. Patchy left basilar atelectasi s. Osseous structures grossly intact. Scattered pelvic phleboliths. IMPRESSION: Overall nonspecific but favor nonobstructive bowel gas pattern.
[2020-03-26] MEDS: DEXTROSE 5% IN WATER 1,000 ML with SODIUM BICARB (1 MEQ/ML) 150 ML IV SCH (11:17)
[2020-03-26 11:32] LABS: Anti-DNA, DS unit <1.0 IU/mL; DNA Double-Stranded NEGATIVE (NEGATIVE)
[2020-03-26 12:13] LABS: Glucose,Whole Blood 279 mg/dL (75-99)
[2020-03-26] MEDS: LEVOFLOXACIN 250MG-D5W PMX 250 MG in DEXTROSE/WATER 1 50ML.BAG IVPB SCH (12:20)
--- NOTE | 2020-03-26 12:26 | CDI ---
Documentation Clarification Form Date: 03/26/2020 11:39:30 AM From: Salina Spain RN CCDS Admit Date: 03/22/2020 05:21:00 PM Patient Name: Yvon Choudhury Visit Number: [id number] Discharge Date: ATTENTION: The Clinical Documentation Specialists (CDI) and [facility] Coding Staff appreciate your assistance in clarifying documentation. Please respond to the clarification below the line at the bottom and electronically sign. The CDI & [facility] Coding staff will review the response and follow-up if needed. Please note: Queries are made part of the Legal Health Record. If you have any questions, please contact the author of this message via ITS. Dr. Danish Payne Elevated troponin is up to 5 is also probably related to hypoxia and oxygen mismatch. Is documented in the Cardiology progress note 03/25 Patient History/Risk Factors: 70-year-old male presents to the ED with chest pain with inspiration across his chest, cough, fever and chills for one week. Medical history: CA, Renal disease and HTN. Clinical Indicators: Troponin: 01/20: 0.24; 0.19; 0.031; 03/24: 5.320; 3.710 03/23 1914 VSS: B/P 134/74; HR 102; Temp 98.3 F Oral; RR 22; SpO2 94% 3L 03/24 0333: B/P 116/69; HR 103; SpO2 92% 15L Non Rebreather; 03/24 0531: B/P 93/57; HR 99; RR 31; SpO2 96% BiPAP; 03/24 0754: B/P 93/44; HR 97; RR 33; SpO2 95% BiPap; 03/24 1000: B/P 102/67; HR 96; RR 31; SpO2 86% Mechanical Ventilation; 03/24 1110: B/P 96/49; HR 100; RR 27; SpO2 92% Mechanical Ventilation. Treatment: Oxygen via nasal cannula; Non-Rebreather; BiPAP and Mechanical Ventilator In your professional opinion, can you please clarify the clinical significance of the Troponins? Type 2 CA secondary to demand ischemia in the setting of Respiratory Failure Type 2 CA secondary to demand ischemia due to (please specify) Type 2 CA ruled out Unable to determine Other Condition, please specify No Response (Last Revision: February 2019) EVELIOD
--- NOTE | 2020-03-26 12:35 | P.PN ---
Subjective Progress Note Date: 03/26/20 Principal diagnosis: Acute sepsis, septic shock, and pneumonia, community-acquired versus Francisella tularemia pneumonia. This is a 70-year-old white male with history of hypertension and underlying coronary artery disease, patient was admitted yesterday with intermittent episod es of chest pains, pleuritic in nature, associated with dry cough, fever, chills, and diaphoresis for almost one week. Patient was initially seen in the ER on 03/21/2020, and he was discharged home in stable condition. His workup was basically nondiagnostic. And his chest x-ray was normal. The week prior to his presentation, patient shot a coyote, and he had to drag the coyote about 3-4 miles. Apparently he started having chest pain at the time of dragging the coyote, and his pain resolved as he rested. Over the following week, patient has been experiencing diffuse chest discomfort with deep inspiration, had no radiation of the pain, he had mostly intermittent episodes of cough, fever, chills, and that is when he came to the ER. Again patient was admitted on 03/22/2020, CT angiogram of the chest was done, and it was basically normal. There was no evidence of pulmonary embolism, no evidence of infiltrate, minimal left basilar atelectasis was noted. Chest x-ray upon admission was also normal. Patient was seen by cardiology on consultation on 03/22/2020, felt that the pain was atypical, pleuritic in nature, however there was a concern based on the consultation about his leukocytosis with fever and the payroll accounting manager was concerned about underlying infectious process. His temperature upon admission was ranging between 100 and 103. Patient was treated empirically with antibioti cs in the form of Rocephin and Zithromax, however this morning patient was transferred to the ICU mostly because of worsening shortness of breath, worsening chest x-ray, hypotension, patient was placed on BiPAP, however he remained marginal and his overall pulmonary status, and upon my evaluation in the ICU, patient clearly needed to be intubated and placed on mechanical ventilation as he was clearly hypotensive, febrile, and he was also noted to have very marginal O2 saturation on 100% BiPAP. Discussed with the patient the need for intubation mechanical ventilation, he agreed, and the patient was intubated and placed on mechanical ventilation. Patient required also placement on norepinephrine, vasopressin, and his antibiotics coverage was broadened. Cardiology was asked to reevaluate him because of his increased troponin and his increase BNP level. Chest x-ray showed initially evidence of interstitial edema and possible underlying pneumonia. Post intubation, follow-up chest x-ray showed cardiomegaly, possible multifocal bilateral opacities a greater in the mid and lower lungs. Hence we'll broaden the spectrum of his antibiotics coverage, and the patient required to be placed on high FiO2, required high PEEP, and follow-up ABG done showed a pO2 of 71 pCO2 of 39 pH of 7.27 and this was on 100% FiO2, and PEEP of 10. Reevaluated today on 03/25/2020, patient remains in the ICU, intubated and mechanically ventilated. He is now on FiO2 of 80% assist control rate of 26, tidal volume is 450, PEEP at 12, however after reviewing his follow-up ABG this morning 2, I was able to cut down his FiO2 down to 65%, and the PEEP was increased to 14. Patient is on propofol at 40 mcg/kg/m, IV fluid at 75 mL per hour, sodium bicarb drip at 50 ML per hour vasopressin at 0.03 units per minute. Is also on norepinephrine at 0.75 mcg/kg/m, and the Nimbex at 1.5. Patient is also on Dilaudid 0.5 mg every 2 hours around the clock. Patient was started on enteral feeding today. Antibiotics ramon he is on doxycycline, Levaquin, and Zosyn was added by infectious disease on the case. Pro-calcitonin level is on the rise, it is 73.94, this is extremely high level. WBC count is up to 43.6. C-reactive protein is 545 chest x-ray is showing worsening right lower lobe infiltrate. Small left pleural effusion, lines and catheters are in proper positions ABG today showed a pO2 of 88 pCO2 of 42 pH of 7.24, hence the patient will remain on 65% FiO2, PEEP of 14, otherwise remaining vent settings will be unchanged. He is on assist control rate of 26 and tidal volume is 450. Patient was seen by infectious disease on consultation, Zosyn was added empirically in addition to doxycycline and Levaquin. Enteral feeding will be started today on this patient, and this would be addressing his nutritional support. Patient remains on GI and DVT prophylaxis. Reevaluated today on 03/26/2020, patient remains in the ICU, intubated and mechanically ventilated. He is on assist control rate of 26, volume is 450 FiO2 is 60% PEEP is 14, ABG showed a pO2 of 90 pCO2 of 39 pH of 7.26, hence his so dium bicarb drip was increased and his FiO2 was decreased down to 50% however The PEEP at 14. Patient remains on multiple drips including bicarb drip at 75 mL per hour, Nimbex at 1.5 mcg/kg/m, propofol at 50 mcg/kg/m, norepinephrine at 0.6 mcg/kg/m. Patient is not making much urine, his chest x-ray is showing slight improvement in his right lower lobe pneumonia. However obviously the patient remains quite ill, and septic requiring multiple pressors including norepinephrine and vasopressin. Considering the deterioration in his renal status, patient is definitely heading towards hemodialysis, and we'll consult vascular surgery for a dialysis catheter placement. The meantime the patient re alex on Levaquin, doxycycline, Zosyn, cultures so far are nondiagnostic including blood cultures and sputum cultures. Yesterday the patient was also started on Solu-Medrol, he had significant leukocytosis yesterday, improving, and repeat pro-calcitonin level is pending. Patient was given yesterday 80 mg of Lasix, hardly any response. Patient remains on enteral feeding. Slight distention of the abdomen was noted today, but x-rays of the abdomen were nondiagnostic of obstruction. WBC count today is 16.8 hemoglobin is 13. Continues to have significant neutrophilia, electrolytes are normal except bicarb remains low at 15. Liver enzymes/transaminases were noted to be a bit elevated. Likely consistent with shocked liver. White count today is 16.8 compared to 43.6 yesterday. Objective - Vital Signs Vital signs: Vital Signs Temp 99.8 F H 03/26/20 08:00 Pulse 90 03/26/20 11:41 Resp 26 H 03/26/20 11:00 BP 106/68 03/26/20 11:00 Pulse Ox 92 L 03/26/20 11:00 Intake & Output 03/25/20 03/26/20 03/26/20 18:59 06:59 18:59 Intake Total 2303.134 1567.113 728.844 Output Total 50 58 5 Balance 2253.134 1509.113 723.844 Weight 104.9 kg 106.2 kg 106.2 kg Intake: IV 286 412 130 0.9 NACL 220 240 100 Piperacillin-Tazobactam 3 100 .375 gm In Sodium Chloride 0.9% 100 ml @ 25 mls/hr IVPB Q8HR [facility] Rx# :[id number] Pressure bag 66 72 30 Intake, IV Titration 1927.134 835.113 448.844 Amount Cisatracurium 200 mg In 22.86 161.744 Sodium Chloride 0.9% 180 ml @ 1 MCG/KG/MIN 5.715 mls/hr IV .Q24H [facility] Rx#: [id number] Dextrose 5% in Water 1, 275 000 ml @ 75 mls/hr IV . [id number] ADAM with Sodium Bicarb (1 Meq/ml) 150 ml Rx#:[id number] Doxycycline 100 mg In 100 Sodium Chloride 0.9% 100 ml @ 100 mls/hr IVPB Q12HR [facility] Rx#:[id number] Norepinephrine 32 mg In 338.787 383.994 85.728 Sodium Chloride 0.9% 218 ml @ 0.05 MCG/KG/MIN 2. 233 mls/hr IV .Q24H [facility] Rx#:[id number] Piperacillin-Tazobactam 3 200 .375 gm In Sodium Chloride 0.9% 100 ml @ 25 mls/hr IVPB Q8HR [facility] Rx# :[id number] Sodium Chloride 0.9% 1, 1000 000 ml @ 999 mls/hr IV . Q1H1M ONE Rx#:[id number] propofoL 1,000 mg In 265.487 289.375 88.116 Empty Bag 1 bag @ Titrate IV .Q0M [facility] Rx#: [id number] Tube Feeding 60 230 120 Other 30 90 30 Output: Urine 50 58 5 Other: Voiding Method Indwelling Catheter Indwelling Catheter Indwelling Catheter ABP, PAP, CO, CI - Last Documented Arterial Blood Pressure 112/57 - Exam Physical Exam: Revealed a 70-year-old white male, intubated, sedated, paralyzed, on mechanical ventilation Head: Atraumatic, normocephalic. Endotracheal tube and orogastric tube are intact HEENT:[Neck is supple.] [No neck masses.] [No thyromegaly.] [No JVD.] Right IJ triple-lumen catheter is noted. Chest: [Symmetrical expansion, crackles at the bases him a specially in the right base. Cardiac Exam: [Normal S1 and S2, no S3 gallop, no murmur.] Abdomen: [Soft, slightly distended, diminished bowel sounds. nontender, no megaly, no rebound, no guarding Extremities: [No clubbing, no edema, no cyanosis.] Good pulses bilaterally. Neurological Exam: Could not be assessed, patient is sedated and paralyzed. Psychiatric: Could not be assessed. Skin: No rashes. Musculoskeletal: No deformities noted - Labs CBC & Chem 7: 03/26/20 04:23 03/26/20 04:23 Labs: Abnormal Lab Results - Last 24 Hours (Table) 03/24/20 03/25/20 03/25/20 Range/Units 19:09 18:01 23:33 WBC (3.8-10.6) k/uL RBC (4.30-5.90) m/uL Neutrophils # (1.3-7.7) k/uL Lymphocytes # (1.0-4.8) k/uL ABG pH (7.35-7.45) ABG HCO3 (21-25) mmol/L Sodium (137-145) mmol/L Carbon Dioxide (22-30) mmol/L BUN (9-20) mg/dL Creatinine (0.66-1.25) mg/dL Glucose (74-99) mg/dL POC Glucose (mg/dL) 243 H 271 H (75-99) mg/dL Calcium (8.4-10.2) mg/dL Total Bilirubin (0.2-1.3) mg/dL AST (17-59) U/L ALT (4-49) U/L Alkaline Phosphatase (38-126) U/L Troponin I 3.710 H* (0.000-0.034) ng/mL Total Protein (6.3-8.2) g/dL Albumin (3.5-5.0) g/dL 03/26/20 03/26/20 03/26/20 Range/Units 04:23 04:23 05:02 WBC 16.8 H (3.8-10.6) k/uL RBC 4.03 L (4.30-5.90) m/uL Neutrophils # 15.8 H (1.3-7.7) k/uL Lymphocytes # 0.4 L (1.0-4.8) k/uL ABG pH 7.26 L (7.35-7.45) ABG HCO3 18 L (21-25) mmol/L Sodium 135 L (137-145) mmol/L Carbon Dioxide 15 L (22-30) mmol/L BUN 71 H (9-20) mg/dL Creatinine 5.25 H (0.66-1.25) mg/dL Glucose 280 H (74-99) mg/dL POC Glucose (mg/dL) (75-99) mg/dL Calcium 7.0 L (8.4-10.2) mg/dL Total Bilirubin 2.3 H (0.2-1.3) mg/dL AST 321 H (17-59) U/L ALT 199 H (4-49) U/L Alkaline Phosphatase 191 H (38-126) U/L Troponin I (0.000-0.034) ng/mL Total Protein 5.1 L (6.3-8.2) g/dL Albumin 2.3 L (3.5-5.0) g/dL 03/26/20 03/26/20 03/26/20 Range/Units 05:33 09:28 12:12 WBC (3.8-10.6) k/uL RBC (4.30-5.90) m/uL Neutrophils # (1.3-7.7) k/uL Lymphocytes # (1.0-4.8) k/uL ABG pH (7.35-7.45) ABG HCO3 (21-25) mmol/L Sodium (137-145) mmol/L Carbon Dioxide (22-30) mmol/L BUN (9-20) mg/dL Creatinine (0.66-1.25) mg/dL Glucose (74-99) mg/dL POC Glucose (mg/dL) 278 H 266 H 279 H (75-99) mg/dL Calcium (8.4-10.2) mg/dL Total Bilirubin (0.2-1.3) mg/dL AST (17-59) U/L ALT (4-49) U/L Alkaline Phosphatase (38-126) U/L Troponin I (0.000-0.034) ng/mL Total Protein (6.3-8.2) g/dL Albumin (3.5-5.0) g/dL Microbiology - Last 24 Hours (Table) 03/24/20 09:08 Blood Culture - Preliminary Blood No Growth after 48 hours 03/22/20 13:51 Blood Culture - Preliminary Blood No Growth after 72 hours 03/24/20 10:30 Gram Stain - Preliminary Sputum Sputum Culture - Preliminary 03/24/20 11:19 Blood Culture - Preliminary Blood No Growth after 24 hours Assessment and Plan Assessment: Impression: Acute hypoxic respiratory failure requiring intubation and mechanical ventilation, this is secondary to acute pneumonia, 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 Titers for Francisella are pending. Sputum cultures and blood cultures are nondiagnostic so far. Acute septic shock requiring pressors in the form of norepinephrine and vasopressin. Acute kidney injury, suspect acute tubular necrosis from hypotension and sepsis/septic shock. Based on his worsening renal profile, patient is having most likely towards hemodialysis Acute diastolic congestive heart failure is also strongly suspected considering the dramatic change on chest x-ray before the patient was intubated. Echocardiogram showed no evidence of LV dysfunction and showed no evidence of pericardial effusion. History of underlying coronary artery disease. History of hypertension. Ex-smoker. Recommendation: Continue ventilatory support. FiO2 down to 50% PEEP remains at 14 Continue antibiotics, patient is on doxycycline, Levaquin, and Zosyn. Continue enteral feeding/nutrition support. GI prophylaxis. DVT prophylaxis. Increased sodium bicarb drip to 75 mL per hour. Hemodynamic support. Continue norepinephrine and continue vasopressin. Patient remains critically ill. Prognosis is extremely guarded. Continue to monitor liver enzymes. Continue to monitor renal profile. Vascular surgery consultation for dialysis catheter placement, I have a feeling patient will be requiring hemodialysis soon. Nephrology is following Critical care time is 35 minutes. Time with Patient: Greater than 30
[2020-03-26] MEDS ORDERED: LIDOCAINE 1% INJ 10MG/ML (20 ML MDV) ONE (12:44)
[2020-03-26] MEDS ORDERED: INSULIN DETEMIR (LEVEMIR) 100 UNIT/ML SYR SQ ONE ×2 (12:45→20:00)
--- NOTE | 2020-03-26 12:57 | P.PN ---
Subjective Progress Note Date: 03/26/20 Principal diagnosis: Acute hypoxic respiratory failure Patient is still sedated and intubated. His overall condition is not improving. His vent settings slightly decreased compared to yesterday. He is making minimal urine. He still requiring vasopressors with norepinephrine and vasopressin. ICU team following closely. Objective - Vital Signs Vital signs: Vital Signs Temp 99.7 F H 03/26/20 12:30 Pulse 90 03/26/20 12:30 Resp 26 H 03/26/20 12:30 BP 142/77 03/26/20 12:30 Pulse Ox 93 L 03/26/20 12:30 Intake & Output 03/25/20 03/26/20 03/26/20 18:59 06:59 18:59 Intake Total 2303.134 3116.424 7468.339 Output Total 50 58 10 Balance 2253.134 8301.178 4648.339 Weight 104.9 kg 106.2 kg 106.2 kg Intake: IV 286 412 156 0.9 NACL 220 240 120 Piperacillin-Tazobactam 3 100 .375 gm In Sodium Chloride 0.9% 100 ml @ 25 mls/hr IVPB Q8HR [facility] Rx# :[id number] Pressure bag 66 72 36 Intake, IV Titration 1927.134 835.113 689.339 Amount Cisatracurium 200 mg In 22.86 161.744 Sodium Chloride 0.9% 180 ml @ 1 MCG/KG/MIN 5.715 mls/hr IV .Q24H [facility] Rx#: [id number] Dextrose 5% in Water 1, 350 000 ml @ 75 mls/hr IV . [id number] [facility] with Sodium Bicarb (1 Meq/ml) 150 ml Rx#:[id number] Doxycycline 100 mg In 100 Sodium Chloride 0.9% 100 ml @ 100 mls/hr IVPB Q12HR [facility] Rx#:[id number] Levofloxacin 250Mg-D5w 50 Pmx 250 mg In Dextrose/ Water 1 50ml.bag @ 50 mls /hr IVPB Q24H [facility] Rx#: [id number] Norepinephrine 32 mg In 338.787 383.994 201.223 Sodium Chloride 0.9% 218 ml @ 0.05 MCG/KG/MIN 2. 233 mls/hr IV .Q24H [facility] Rx#:[id number] Piperacillin-Tazobactam 3 200 .375 gm In Sodium Chloride 0.9% 100 ml @ 25 mls/hr IVPB Q8HR [facility] Rx# :[id number] Sodium Chloride 0.9% 1, 1000 000 ml @ 999 mls/hr IV . Q1H1M [facility] Rx#:[id number] propofoL 1,000 mg In 265.487 289.375 88.116 Empty Bag 1 bag @ Titrate IV .Q0M [facility] Rx#: [id number] Tube Feeding 60 230 153 Other 30 90 30 Output: Urine 50 58 10 Other: Voiding Method Indwelling Catheter Indwelling Catheter Indwelling Catheter ABP, PAP, CO, CI - Last Documented Arterial Blood Pressure 124/60 - Exam General: The patient is sedated and intubated Eye: there is normal conjunctiva bilaterally. Neck: The neck is supple, there is no JVD. Cardiovascular: Normal S1-S2, no S3-S4, no murmurs. Respiratory: Lungs mechanical ventilator sounds Gastrointestinal: Abdomen is soft, nontender, slightly distended Musculoskeletal: There is no pedal edema. Skin: Skin is warm and dry - Labs CBC & Chem 7: 03/26/20 04:23 03/26/20 04:23 Labs: Abnormal Lab Results - Last 24 Hours (Table) 03/24/20 03/25/20 03/25/20 Range/Units 19:09 18:01 23:33 WBC (3.8-10.6) k/uL RBC (4.30-5.90) m/uL Neutrophils # (1.3-7.7) k/uL Lymphocytes # (1.0-4.8) k/uL ABG pH (7.35-7.45) ABG HCO3 (21-25) mmol/L Sodium (137-145) mmol/L Carbon Dioxide (22-30) mmol/L BUN (9-20) mg/dL Creatinine (0.66-1.25) mg/dL Glucose (74-99) mg/dL POC Glucose (mg/dL) 243 H 271 H (75-99) mg/dL Calcium (8.4-10.2) mg/dL Total Bilirubin (0.2-1.3) mg/dL AST (17-59) U/L ALT (4-49) U/L Alkaline Phosphatase (38-126) U/L Troponin I 3.710 H* (0.000-0.034) ng/mL Total Protein (6.3-8.2) g/dL Albumin (3.5-5.0) g/dL 03/26/20 03/26/20 03/26/20 Range/Units 04:23 04:23 05:02 WBC 16.8 H (3.8-10.6) k/uL RBC 4.03 L (4.30-5.90) m/uL Neutrophils # 15.8 H (1.3-7.7) k/uL Lymphocytes # 0.4 L (1.0-4.8) k/uL ABG pH 7.26 L (7.35-7.45) ABG HCO3 18 L (21-25) mmol/L Sodium 135 L (137-145) mmol/L Carbon Dioxide 15 L (22-30) mmol/L BUN 71 H (9-20) mg/dL Creatinine 5.25 H (0.66-1.25) mg/dL Glucose 280 H (74-99) mg/dL POC Glucose (mg/dL) (75-99) mg/dL Calcium 7.0 L (8.4-10.2) mg/dL Total Bilirubin 2.3 H (0.2-1.3) mg/dL AST 321 H (17-59) U/L ALT 199 H (4-49) U/L Alkaline Phosphatase 191 H (38-126) U/L Troponin I (0.000-0.034) ng/mL Total Protein 5.1 L (6.3-8.2) g/dL Albumin 2.3 L (3.5-5.0) g/dL 03/26/20 03/26/20 03/26/20 Range/Units 05:33 09:28 12:12 WBC (3.8-10.6) k/uL RBC (4.30-5.90) m/uL Neutrophils # (1.3-7.7) k/uL Lymphocytes # (1.0-4.8) k/uL ABG pH (7.35-7.45) ABG HCO3 (21-25) mmol/L Sodium (137-145) mmol/L Carbon Dioxide (22-30) mmol/L BUN (9-20) mg/dL Creatinine (0.66-1.25) mg/dL Glucose (74-99) mg/dL POC Glucose (mg/dL) 278 H 266 H 279 H (75-99) mg/dL Calcium (8.4-10.2) mg/dL Total Bilirubin (0.2-1.3) mg/dL AST (17-59) U/L ALT (4-49) U/L Alkaline Phosphatase (38-126) U/L Troponin I (0.000-0.034) ng/mL Total Protein (6.3-8.2) g/dL Albumin (3.5-5.0) g/dL Microbiology - Last 24 Hours (Table) 03/24/20 09:08 Blood Culture - Preliminary Blood No Growth after 48 hours 03/22/20 13:51 Blood Culture - Preliminary Blood No Growth after 72 hours 03/24/20 10:30 Gram Stain - Preliminary Sputum Sputum Culture - Preliminary 03/24/20 11:19 Blood Culture - Preliminary Blood No Growth after 24 hours Assessment and Plan Assessment: Patient is a 70-year-old male with a past medical history noted below who presented with a chief complaint of chest pain. Patient was evaluated in the ER and was noted to have evidence of sepsis with possible underlying pneumonia. He was admitted to the hospital and ACS was ruled out. He was started on antibiotic with IV ceftriaxone and oral azithromycin. He was a high suspicion for COVID-19 on initial presentation secondary to elevated inflammatory markers and his clinical presentation. COVID-19 test was negative twice including a rapid and a traditional PCR test. Patient was seen and evaluated by cardiology on presentation and ACS was ruled out. Echocardiogram showed a preserved ejection fraction with no significant wall motion abnormalities. On the morning on 03/23, his clinical condition started to deteriorate with increased oxygen requirement and increased work of breathing requiring transfer to the intensive care unit. Patient was eventually sedated and intubated requiring mechanical ventilation. Nose list of his medical problems addressed during this hospitalization. 1. Acute hypoxic respiratory failure requiring intubation and mechanical ventilation on 03/24. This is most likely secondary to underlying pneumonia with possible ARDS. Pulmonary edema ruled out by cardiology with a repeat echocardio gram showing preserved ejection fraction. He is currently in the ICU and ventilator being managed by ICU team. 2. Suspected acute diastolic heart failure exacerbation. Echocardiogram on presentation showed a preserved ejection fraction and no significant valvular abnormalities. Repeat limited echocardiogram showed EF of 55%. Patient received multiple doses of IV Lasix. 3. Left lower lobe pneumonia: There was a concern about possible francisella tularensis infection given history provided by family the patient was hunting coyotes. He was started initially on IV ceftriaxone and oral azithromycin and antibiotic changed to doxycycline and Levaquin on 03/24. Zosyn added by infectious disease. Sputum culture ordered. COVID-19 and influenza screen negative on admission 4. Severe sepsis with septic shock, requiring vasopressors. Managed by ICU team. Blood cultures negative to date 5. Chest pain with pleurisy on presentation: ACS ruled out. EKG on presentation with no acute ischemic changes. Troponin was negative on presentation. CT PE protocol negative for PE. 6. Elevated troponin, troponin was positive on 03/24, most likely secondary to supply demand mismatch given septic shock. Cardiology following and the repeat echocardiogram ordered. 7. Acute kidney injury with suspected ATN, continue aggressive IV fluid hydration. Nephrology following closely Repeat lab work in the morning. Monitor urine output closely. 8. Hypomagnesemia and hyponatremia, on presentation now resolved 9. Chronic medical problems: Hyperlipidemia, hypertension, GERD 10. GI and DVT prophylaxis with IV Protonix and subcu Lovenox 11. CODE STATUS patient is full code
[2020-03-26] MEDS ORDERED: LIDOCAINE 1% INJ 10MG/ML (20 ML MDV) SQ ONE (13:16)
--- NOTE | 2020-03-26 13:42 | XR ---
EXAMINATION TYPE: XR chest 1V portable DATE OF EXAM: 03/26/2020 CLINICAL HISTORY: PICC line placement TECHNIQUE: Single AP portable semiupright view of the chest is obtained. COMPARISON: Chest x-ray from earlier today an older studies FINDINGS: The new right-sided PICC line terminates in right atrium. Stable endotracheal tube, orogastric tube, and right internal jugular central venous catheter. Stable cardiomegaly. Persistent bilateral opacities in the lower lungs are redemonstrated. Old fractu re deformity right clavicle redemonstrated. IMPRESSION: Continued bilateral lower lung multifocal acute infiltrates and small left pleural effusi on. No significant interval change. New right-sided PICC line terminates in the right atrium.
--- NOTE | 2020-03-26 15:27 | IR ---
EXAMINATION TYPE: IR cvc insert >=5 years DATE OF EXAM: 03/26/2020 COMPARISON: NONE HISTORY: Needs long-term intravenous access for total parenteral nutrition FINDINGS: Maximal barrier technique was utilized. Hand hygiene obtained with soap and water and alco hol-based hand rub. The skin overlying the right basilic vein was localized with ultrasound and noted to be compressible and patent by ultrasound. An ultrasound image was obtained and submitted on redd ent's chart. Sterile technique utilized with the ultrasound machine. The skin overlying was prepped a nd draped and Lidocaine used for local anesthesia. A skin mercy was made with a scalpel. Access was gained to the vein under direct ultrasound guidance with a 21-gauge needle and a 0.018 inch wire was advanced. Access site was dilated with a peel-away sheath and the catheter tailored to length. Cath eter advanced centrally and a post procedure chest x-ray verified placement within the right atrium, catheter was withdrawn 5 cm. Catheter was fixed to the skin and a sterile dressing placed. Hemostas is achieved and the catheter was aspirated and flushed with sterile saline. The patient remained in stable condition. IMPRESSION: STATUS POST ULTRASOUND GUIDED PICC LINE PLACEMENT, READY FOR USE. THIS PROCEDURE WAS PER FORMED BY THE UNDERSIGNED.
[2020-03-26 16:30] LABS: Glucose,Whole Blood 296 mg/dL (75-99)
[2020-03-26] MEDS: SODIUM CHLORIDE 0.9% 150 ML with VASOPRESSIN 60 UNIT IV SCH ×2 (16:54)
--- NOTE | 2020-03-26 17:45 | PN ---
PROGRESS NOTE Patient is seen for followup for acute kidney injury. Patient was admitted to the hospital with shortness of breath and fever after he had been out on [employer]. He developed worsening shortness of breath, hypoxia and was intubated. The patient subsequently developed severe sepsis and shock with profound hypotension requiring about 75 mcg of Levophed along with vasopressin. He is maintained on antibiotics. The patient is being followed by ID. So far blood cultures are negative. This morning Levophed is slightly lower than yesterday, down to about 60 mcg. Patient continues to have no significant urine output. His urine output had dropped to about 0 to 5 mL/hour. The patient is also maintained on a bicarb drip. Serum creatinine is up to 5.25 today from 1.0 on 03/22/2020 and the patient is in positive balance of about 6 to 7 L since admission. PHYSICAL EXAMINATION: On examination today, patient remains on the vent. He is sedated. Blood pressure was 106/68. He is currently afebrile. Heart rate about 80 per minute. EXAMINATION OF THE HEART: S1 and S2. EXAMINATION OF LUNGS: Bilateral breath sounds are heard. Patient is on the vent. Examination of lower extremities shows edema 1+ bilaterally. ABDOMEN: Soft, distended. ZOO KEEPER exam cannot be performed, as patient is sedated. LABS: Labs show sodium 135, potassium 4.3, chloride 103. CO2 is 15, BUN 71, serum creatinine 5.25, hemoglobin 13.0 g/dL. ASSESSMENT: 1. Acute kidney injury, acute tubular necrosis, currently oliguric, secondary to severe sepsis, hypotension and ischemic acute tubular necrosis. Renal function continues to deteriorate and patient has evidence of volume overload. We will proceed with dialysis catheter placement and we will plan for SLED procedure tomorrow. Hopefully the pressors will be at a lower dose by tomorrow. 2. Severe sepsis, septic shock secondary to pneumonia with concern for Francisella tularensis infection, as patient was [employer] hunting. Titers are pending. 3. Acute hypoxic respiratory failure secondary to pneumonia and sepsis. 4. Metabolic acidosis associated with renal failure, maintained on a bicarb drip. 5. Proteinuria and hematuria with positive ALEX. All other serologies are negative. This can be nonspecific. I believe his acute kidney injury is mostly secondary to the severe hypotension and ischemic ATN. PLAN: Proceed with dialysis catheter placement. Continue with the bicarb drip for now. We will plan for SLED procedure tomorrow if patient remains hemodynamically stable. MMODL / IJN: [id number] /
[2020-03-26 18:19] LABS: Glucose,Whole Blood 337 mg/dL (75-99)
--- NOTE | 2020-03-26 18:57 | PN ---
PROGRESS NOTE DATE OF SERVICE: 03/26/2020 REASON FOR FOLLOWUP: Sepsis and pneumonia. INTERVAL HISTORY: The patient's fever pattern has improved. He did have a low-grade fever of 99.8 today. The patient is hemodynamically slightly better, as the pressor requirement has lessened. The patient had no urine output and a dialysis catheter has been placed in addition to the PICC line. FiO2 is currently at 50%. No diarrhea has been reported by the nursing staff. PHYSICAL EXAMINATION: Blood pressure 142/77, pulse of 80, temperature is 99.7. He is 92% on 50% FiO2. General description is an elderly male intubated on the vent. RESPIRATORY SYSTEM: Unlabored breathing with decreased intensity of breath sounds. No wheeze. HEART: S1, S2. Regular rate and rhythm. ABDOMEN: Soft. No tenderness. LABS: Hemoglobin is 13, white count down to 16.8. BUN of 71, creatinine 5.25. Liver enzymes are elevated. Culture so far pending. DIAGNOSTIC IMPRESSION AND PLAN: Patient with acute respiratory failure with sepsis; source pneumonia with a question of stenotic versus community-acquired. Patient is covered with Zosyn, doxycycline and Levaquin; to continue while waiting for the culture to finalize. Continue supportive care. MMODL / IJN: [id number] /
[2020-03-26] MEDS: SODIUM CHLORIDE 0.9% 1,000 ML IV SCH (20:07)
--- NOTE | 2020-03-26 20:48 | OP ---
OPERATIVE REPORT PREOPERATIVE DIAGNOSIS: Acute on chronic renal failure. POSTOPERATIVE DIAGNOSIS: Acute on chronic renal failure. PROCEDURE: Ultrasound-guided triple-lumen dialysis catheter placement via right femoral approach. PROCEDURE DESCRIPTION: Right groin was prepped and draped in usual sterile manner. Lidocaine 1% was infiltrated. Ultrasound-guided micropuncture was introduced into the right femoral vein. Micropuncture guidewire was passed and dilator advanced. Then we passed a regular guidewire. Dilator was advanced and triple-lumen catheter was advanced on the top of the guidewire, flushed with heparin saline and hep-locked, secured with 3-0 nylon. Patient tolerated the procedure well. MMODL / IJN: [id number] /
[2020-03-26 20:55] LABS: Glucose,Whole Blood 316 mg/dL (75-99)
[2020-03-26 23:14] LABS: Glucose,Whole Blood 316 mg/dL (75-99)
[2020-03-26] MEDS ORDERED: INSULIN ASPART (NovoLOG) 100 UNIT/ML VIAL SQ ONE (23:36)
[2020-03-27] MEDS: CISATRACURIUM 200 MG in SODIUM CHLORIDE 0.9% 180 ML IV SCH (01:24)
[2020-03-27] MEDS: HYDROmorphone 0.5 MG/0.5 ML SYRINGE IVP SCH ×4 (02:12→06:42)
[2020-03-27 02:41] LABS: Glucose,Whole Blood 316 mg/dL (75-99)
[2020-03-27 03:41] LABS: Allen Test Performed? Yes
[2020-03-27 03:41] LABS: Basophils % (A) 0 %; Eosinophils % (A) 0 %; HCT 34.5 % (39.0-53.0); HGB 11.3 gm/dL (13.0-17.5); Lymphocytes # (A) 0.3 k/uL (1.0-4.8); Lymphocytes % (A) 3 %; MCH 31.8 pg (25.0-35.0); MCHC 32.8 g/dL (31.0-37.0); MCV 97.1 fL (80.0-100.0); Mean Platelet Volume 7.7; Monocytes # (A) 0.2 k/uL (0-1.0); Monocytes % (A) 2 %; Neutrophils # (A) 9.5 k/uL (1.3-7.7); Neutrophils % (A) 94 %; Platelet Count 284 k/uL (150-450); RBC 3.55 m/uL (4.30-5.90); RDW 14.7 % (11.5-15.5); WBC 10.2 k/uL (3.8-10.6)
[2020-03-27 03:45] LABS: ABG HCO3 18 mmol/L (21-25); ABG PCO2 41 mmHg (35-45); ABG PH 7.26 (7.35-7.45); ABG PO2 74 mmHg (83-108); ABG TCO2 20 mmol/L (19-24)
[2020-03-27 03:46] LABS: ABG Base Excess -8.8 mmol/L
[2020-03-27 05:08] LABS: Calcium 6.7 mg/dL (8.4-10.2); Potassium 4.6 mmol/L (3.5-5.1)
[2020-03-27 05:26] LABS: Hepatitis B Surface AB- Quant 3.5 mIU/mL; Hepatitis B Surface Antibody Non-Reactive (Non-Reactive); Hepatitis B Surface Antigen Non-Reactive (Non-Reactive)
[2020-03-27 05:45] LABS: Glucose,Whole Blood 303 mg/dL (75-99)
[2020-03-27] MEDS: methylPREDNISolone SOD SUCCI 125 MG/2 ML VIAL IV SCH ×4 (05:50→23:26)
[2020-03-27] MEDS: INSULIN DETEMIR (LEVEMIR) 100 UNIT/ML SYR SQ SCH ×2 (05:54→17:56)
[2020-03-27] MEDS ORDERED: INSULIN ASPART (NovoLOG) 100 UNIT/ML VIAL SQ ONE (06:26)
[2020-03-27] MEDS ORDERED: INSULIN DETEMIR (LEVEMIR) 100 UNIT/ML SYR SQ SCH (07:00)
[2020-03-27] MEDS: IPRATROPIUM-ALBUTEROL 3 ML NEB INHALATION SCH ×4 (07:30→19:32)
--- NOTE | 2020-03-27 08:24 | XR ---
EXAMINATION TYPE: XR chest 1V portable DATE OF EXAM: 03/27/2020 COMPARISON: Chest x-ray 03/26/2020 HISTORY: Intubated TECHNIQUE: Single frontal view of the chest is obtained. FINDINGS: Endotracheal tube and NG tube, right jugular central venous catheter are overlying appropr iate positions and are stable. No evident pneumothorax. Right-sided PICC line is present and courses towards the level of the cavoatrial junction. Cardiac mediastinal silhouette is unchanged. Bibasilar increased density is noted. Aorta is dense. IMPRESSION: Findings are essentially stable. Correlate for pneumonia, edema, atelectasis, possible e ffusions.
[2020-03-27] MEDS: CHLORHEXIDINE GLUCONATE 15 ML CUP MUCOUS MEM SCH ×2 (08:27→19:56)
[2020-03-27] MEDS: PANTOPRAZOLE 40 MG/10 ML VIAL IVP SCH (08:27)
[2020-03-27] MEDS: ASPIRIN 81 MG PO SCH (08:27)
[2020-03-27] MEDS: ATORVASTATIN 40 MG TAB PO SCH (08:27)
[2020-03-27 08:28] LABS: Glucose,Whole Blood 300 mg/dL (75-99)
[2020-03-27] MEDS: PIPERACILLIN-TAZOBACTAM 3.375 GM in SODIUM CHLORIDE 0.9% 100 ML IVPB SCH ×2 (08:28→19:55)
[2020-03-27] MEDS: DOXYCYCLINE 100 MG in SODIUM CHLORIDE 0.9% 100 ML IVPB SCH ×2 (08:29→19:56)
[2020-03-27] MEDS ORDERED: INSULIN ASPART (NovoLOG) 100 UNIT/ML VIAL SQ SCH (08:30)
[2020-03-27] MEDS ORDERED: SODIUM BICARB 8.4% 50 ML SYR (1 MEQ/ML) IV STA ×2 (08:39→08:51)
--- NOTE | 2020-03-27 08:41 | P.PN ---
Subjective Progress Note Date: 03/27/20 Principal diagnosis: This is a 70-year-old male seen in follow-up with acute kidney injury, ATN and uric. He was admitted with sepsis, likely from pneumonia and blood cultures have been negative. Coronary artery disease was ruled out. He is intubated and on multiple vasopressors including levo fed, vasopressin, on ventilator at 50% FiO2. Blood pressure remains low. He is in normal sinus rhythm. Is also on a bicarb drip. Past history significant for hypertension [place] GERD hyperlipidemia and kidney stones in the past Objective - Vital Signs Vital signs: Vital Signs Temp 98.6 F 03/27/20 08:00 Pulse 81 03/27/20 08:00 Resp 26 H 03/27/20 08:00 BP 82/52 03/27/20 08:00 Pulse Ox 92 L 03/27/20 08:00 Intake & Output 03/26/20 03/27/20 03/27/20 18:59 06:59 18:59 Intake Total 204.642 2302.524 368.250 Output Total 35 45 0 Balance 2006.642 2257.524 368.250 Weight 106.2 kg 111.8 kg Intake: IV 312 1267 212 0.9 NACL 240 170 50 Dextrose 5% in Water 1, 825 150 000 ml @ 75 mls/hr IV . [id number] [facility] with Sodium Bicarb (1 Meq/ml) 150 ml Rx#:[id number] Doxycycline 100 mg In 100 Sodium Chloride 0.9% 100 ml @ 100 mls/hr IVPB Q12HR [facility] Rx#:[id number] Piperacillin-Tazobactam 3 100 .375 gm In Sodium Chloride 0.9% 100 ml @ 25 mls/hr IVPB Q8HR [facility] Rx# :[id number] Pressure bag 72 72 12 Intake, IV Titration 1318.642 549.524 60.250 Amount Cisatracurium 200 mg In 195.322 Sodium Chloride 0.9% 180 ml @ 1 MCG/KG/MIN 5.715 mls/hr IV .Q24H [facility] Rx#: [id number] Dextrose 5% in Water 1, 800 75 000 ml @ 75 mls/hr IV . [id number] [facility] with Sodium Bicarb (1 Meq/ml) 150 ml Rx#:[id number] Levofloxacin 250Mg-D5w 50 Pmx 250 mg In Dextrose/ Water 1 50ml.bag @ 50 mls /hr IVPB Q24H [facility] Rx#: [id number] Norepinephrine 32 mg In 287.621 90.120 10.250 Sodium Chloride 0.9% 218 ml @ 0.05 MCG/KG/MIN 2. 233 mls/hr IV .Q24H [facility] Rx#:[id number] propofoL 1,000 mg In 88.116 Empty Bag 1 bag @ Titrate IV .Q0M [facility] Rx#: [id number] propofoL 500 mg In Empty 92.905 189.082 50 Bag 1 bag @ Titrate IV . Q0M [facility] Rx#:[id number] Tube Feeding 351 396 66 Other 60 90 30 Output: Urine 35 45 0 Other: Voiding Method Indwelling Catheter Indwelling Catheter ABP, PAP, CO, CI - Last Documented Arterial Blood Pressure 82/47 On examination he is obtunded sedated Face looks symmetrical Lungs are clear to auscultation fair air entry bilaterally on the vent Heart sounds are unremarkable normal sinus rhythm Abdomen soft no masses felt Extremity exam was minimal edema Neurologically obtunded sedated - Labs CBC & Chem 7: 03/27/20 03:30 03/27/20 03:30 Labs: Abnormal Lab Results - Last 24 Hours (Table) 03/26/20 03/26/20 03/26/20 Range/Units 09:28 12:12 16:18 RBC (4.30-5.90) m/uL Hgb (13.0-17.5) gm/dL Hct (39.0-53.0) % Neutrophils # (1.3-7.7) k/uL Lymphocytes # (1.0-4.8) k/uL ABG pH (7.35-7.45) ABG pO2 (83-108) mmHg ABG HCO3 (21-25) mmol/L ABG O2 Saturation (94-97) % Sodium (137-145) mmol/L Carbon Dioxide (22-30) mmol/L BUN (9-20) mg/dL Creatinine (0.66-1.25) mg/dL Glucose (74-99) mg/dL POC Glucose (mg/dL) 266 H 279 H 296 H (75-99) mg/dL Calcium (8.4-10.2) mg/dL 03/26/20 03/26/2003/26/21 Range/Units 18:18 20:53 23:13 RBC (4.30-5.90) m/uL Hgb (13.0-17.5) gm/dL Hct (39.0-53.0) % Neutrophils # (1.3-7.7) k/uL Lymphocytes # (1.0-4.8) k/uL ABG pH (7.35-7.45) ABG pO2 (83-108) mmHg ABG HCO3 (21-25) mmol/L ABG O2 Saturation (94-97) % Sodium (137-145) mmol/L Carbon Dioxide (22-30) mmol/L BUN (9-20) mg/dL Creatinine (0.66-1.25) mg/dL Glucose (74-99) mg/dL POC Glucose (mg/dL) 337 H 316 H 316 H (75-99) mg/dL Calcium (8.4-10.2) mg/dL 03/27/20 03/27/20 03/27/20 Range/Units 02:40 03:30 03:30 RBC 3.55 L (4.30-5.90) m/uL Hgb 11.3 L (13.0-17.5) gm/dL Hct 34.5 L (39.0-53.0) % Neutrophils # 9.5 H (1.3-7.7) k/uL Lymphocytes # 0.3 L (1.0-4.8) k/uL ABG pH (7.35-7.45) ABG pO2 (83-108) mmHg ABG HCO3 (21-25) mmol/L ABG O2 Saturation (94-97) % Sodium 134 L (137-145) mmol/L Carbon Dioxide 16 L (22-30) mmol/L BUN 93 H (9-20) mg/dL Creatinine 7.02 H* (0.66-1.25) mg/dL Glucose 310 H (74-99) mg/dL POC Glucose (mg/dL) 316 H (75-99) mg/dL Calcium 6.7 L (8.4-10.2) mg/dL 03/27/20 03/27/20 03/27/20 Range/Units 03:35 05:44 08:26 RBC (4.30-5.90) m/uL Hgb (13.0-17.5) gm/dL Hct (39.0-53.0) % Neutrophils # (1.3-7.7) k/uL Lymphocytes # (1.0-4.8) k/uL ABG pH 7.26 L (7.35-7.45) ABG pO2 74 L (83-108) mmHg ABG HCO3 18 L (21-25) mmol/L ABG O2 Saturation 92.0 L (94-97) % Sodium (137-145) mmol/L Carbon Dioxide (22-30) mmol/L BUN (9-20) mg/dL Creatinine (0.66-1.25) mg/dL Glucose (74-99) mg/dL POC Glucose (mg/dL) 303 H 300 H (75-99) mg/dL Calcium (8.4-10.2) mg/dL Microbiology - Last 24 Hours (Table) 03/22/20 13:51 Blood Culture - Preliminary Blood No Growth after 96 hours 03/24/20 10:30 Gram Stain - Final Sputum Sputum Culture - Final 03/24/20 11:19 Blood Culture - Preliminary Blood No Growth after 48 hours 03/24/20 09:08 Blood Culture - Preliminary Blood No Growth after 48 hours Assessment and Plan Assessment: Impression 1. Acute kidney injury with ATN oliguric to anuric. Secondary to sepsis and hypotension 2. Sepsis source likely pneumonia cultures negative so far. 3. Metabolic acidosis with pH of 7.26 pCO2 of 41 bicarb is 16 with gap of 18 etiology is acute kidney injury and shock. 4. Anemia hemoglobin 7.3. Recommendation 1. Patient has a Jesse catheter in his right groin. Will proceed with dialysis with the slow low efficiency dialysis. Ultrafiltration goal is 1 L, will extend the time to 4 hours, 2. Family members not available to discuss the pros and cons of dialysis unit 3. Follow-up with repeat labs tomorrow
[2020-03-27] MEDS ORDERED: SODIUM CHLORIDE 0.9% 1,000 ML IV ONE (08:46)
--- NOTE | 2020-03-27 09:08 | P.PN ---
Subjective Progress Note Date: 03/27/20 Principal diagnosis: Acute hypoxic respiratory failure This is a 70-year-old gentleman who was admitted to the hospital with acute hypoxic respiratory failure and required intubation and mechanical ventilation. The exact etiology of the respiratory failure still not well cleared. He developed renal failure as well. The patient was seen this morning. He continues to be intubated and continues to be on mechanical ventilation. His total requires small dose of norepinephrin e. He is in normal sinus mechanism at this point. The chest x-ray was reviewed. He underwent an echocardiogram which revealed normal left ventricular systolic function. Objective - Vital Signs Vital signs: Vital Signs Temp 98.6 F 03/27/20 08:00 Pulse 85 03/27/20 09:00 Resp 26 H 03/27/20 09:00 BP 82/52 03/27/20 08:00 Pulse Ox 93 L 03/27/20 09:00 Intake & Output 03/26/20 03/27/20 03/27/20 18:59 06:59 18:59 Intake Total 2041.642 2302.524 1495.397 Output Total 35 45 0 Balance 2006.642 2257.524 1495.397 Weight 106.2 kg 111.8 kg Intake: IV 312 1267 1318 0.9 NACL 240 170 50 0.9 NACL bolus 1000 Dextrose 5% in Water 1, 825 225 000 ml @ 75 mls/hr IV . [id number] [facility] with Sodium Bicarb (1 Meq/ml) 150 ml Rx#:[id number] Doxycycline 100 mg In 100 Sodium Chloride 0.9% 100 ml @ 100 mls/hr IVPB Q12HR [facility] Rx#:[id number] Piperacillin-Tazobactam 3 100 25 .375 gm In Sodium Chloride 0.9% 100 ml @ 25 mls/hr IVPB Q8HR [facility] Rx# :[id number] Pressure bag 72 72 18 Intake, IV Titration 1318.642 549.524 66.397 Amount Cisatracurium 200 mg In 195.322 Sodium Chloride 0.9% 180 ml @ 1 MCG/KG/MIN 5.715 mls/hr IV .Q24H [facility] Rx#: [id number] Dextrose 5% in Water 1, 800 75 000 ml @ 75 mls/hr IV . [id number] [facility] with Sodium Bicarb (1 Meq/ml) 150 ml Rx#:[id number] Levofloxacin 250Mg-D5w 50 Pmx 250 mg In Dextrose/ Water 1 50ml.bag @ 50 mls /hr IVPB Q24H [facility] Rx#: [id number] Norepinephrine 32 mg In 287.621 90.120 16.397 Sodium Chloride 0.9% 218 ml @ 0.05 MCG/KG/MIN 2. 233 mls/hr IV .Q24H [facility] Rx#:[id number] propofoL 1,000 mg In 88.116 Empty Bag 1 bag @ Titrate IV .Q0M [facility] Rx#: [id number] propofoL 500 mg In Empty 92.905 189.082 50 Bag 1 bag @ Titrate IV . Q0M [facility] Rx#:[id number] Tube Feeding 351 396 81 Other 60 90 30 Output: Urine 35 45 0 Other: Voiding Method Indwelling Catheter Indwelling Catheter ABP, PAP, CO, CI - Last Documented Arterial Blood Pressure 94/51 - Constitutional General appearance: Present: no acute distress - Respiratory Respiratory: bilateral: diminished - Cardiovascular Rhythm: regular - Labs CBC & Chem 7: 03/27/20 03:30 03/27/20 03:30 Labs: Abnormal Lab Results - Last 24 Hours (Table) 03/26/20 03/26/20 03/26/20 Range/Units 09:28 12:12 16:18 RBC (4.30-5.90) m/uL Hgb (13.0-17.5) gm/dL Hct (39.0-53.0) % Neutrophils # (1.3-7.7) k/uL Lymphocytes # (1.0-4.8) k/uL ABG pH (7.35-7.45) ABG pO2 (83-108) mmHg ABG HCO3 (21-25) mmol/L ABG O2 Saturation (94-97) % Sodium (137-145) mmol/L Carbon Dioxide (22-30) mmol/L BUN (9-20) mg/dL Creatinine (0.66-1.25) mg/dL Glucose (74-99) mg/dL POC Glucose (mg/dL) 266 H 279 H 296 H (75-99) mg/dL Calcium (8.4-10.2) mg/dL 03/26/20 03/26/20 03/26/20 Range/Units 18:18 20:53 23:13 RBC (4.30-5.90) m/uL Hgb (13.0-17.5) gm/dL Hct (39.0-53.0) % Neutrophils # (1.3-7.7) k/uL Lymphocytes # (1.0-4.8) k/uL ABG pH (7.35-7.45) ABG pO2 (83-108) mmHg ABG HCO3 (21-25) mmol/L ABG O2 Saturation (94-97) % Sodium (137-145) mmol/L Carbon Dioxide (22-30) mmol/L BUN (9-20) mg/dL Creatinine (0.66-1.25) mg/dL Glucose (74-99) mg/dL POC Glucose (mg/dL) 337 H 316 H 316 H (75-99) mg/dL Calcium (8.4-10.2) mg/dL 03/27/20 03/27/20 03/27/20 Range/Units 02:40 03:30 03:30 RBC 3.55 L (4.30-5.90) m/uL Hgb 11.3 L (13.0-17.5) gm/dL Hct 34.5 L (39.0-53.0) % Neutrophils # 9.5 H (1.3-7.7) k/uL Lymphocytes # 0.3 L (1.0-4.8) k/uL ABG pH (7.35-7.45) ABG pO2 (83-108) mmHg ABG HCO3 (21-25) mmol/L ABG O2 Saturation (94-97) % Sodium 134 L (137-145) mmol/L Carbon Dioxide 16 L (22-30) mmol/L BUN 93 H (9-20) mg/dL Creatinine 7.02 H* (0.66-1.25) mg/dL Glucose 310 H (74-99) mg/dL POC Glucose (mg/dL) 316 H (75-99) mg/dL Calcium 6.7 L (8.4-10.2) mg/dL 03/27/20 03/27/20 03/27/20 Range/Units 03:35 05:44 08:26 RBC (4.30-5.90) m/uL Hgb (13.0-17.5) gm/dL Hct (39.0-53.0) % Neutrophils # (1.3-7.7) k/uL Lymphocytes # (1.0-4.8) k/uL ABG pH 7.26 L (7.35-7.45) ABG pO2 74 L (83-108) mmHg ABG HCO3 18 L (21-25) mmol/L ABG O2 Saturation 92.0 L (94-97) % Sodium (137-145) mmol/L Carbon Dioxide (22-30) mmol/L BUN (9-20) mg/dL Creatinine (0.66-1.25) mg/dL Glucose (74-99) mg/dL POC Glucose (mg/dL) 303 H 300 H (75-99) mg/dL Calcium (8.4-10.2) mg/dL Microbiology - Last 24 Hours (Table) 03/22/20 13:51 Blood Culture - Preliminary Blood No Growth after 96 hours 03/24/20 10:30 Gram Stain - Final Sputum Sputum Culture - Final 03/24/20 11:19 Blood Culture - Preliminary Blood No Growth after 48 hours 03/24/20 09:08 Blood Culture - Preliminary Blood No Growth after 48 hours Assessment and Plan Assessment: Assessment #1 acute hypoxic respiratory failure #2 acute septic shock #3 acute renal failure #4 component of diastolic heart failure #5 multiple comorbid conditions Plan #1 continue the current medical regimen #2 no need for any further cardiac workup at this point of time
[2020-03-27] MEDS ORDERED: INSULIN REGULAR BOLUS (FROM DRIP BAG) IV PRN (09:44)
[2020-03-27] MEDS: DEXTROSE 5% IN WATER 1,000 ML with SODIUM BICARB (1 MEQ/ML) 150 ML IV SCH ×2 (09:46→15:28)
[2020-03-27] MEDS: ENOXAPARIN 30 MG/0.3 ML SYRINGE SQ SCH (09:49)
[2020-03-27] MEDS: LACTULOSE 20 GM/30 ML CUP PO SCH ×4 (09:49→23:31)
[2020-03-27] MEDS: fentaNYL (PF) 1,000 MCG in SODIUM CHLORIDE 0.9% 80 ML IV SCH (10:16)
[2020-03-27 10:20] LABS: Glucose,Whole Blood 245 mg/dL (75-99)
[2020-03-27] MEDS: INSULIN REGULAR 100 UNIT in SODIUM CHLORIDE 0.9% 100 ML IV SCH (10:20)
--- NOTE | 2020-03-27 10:22 | P.GSCN ---
History of Present Illness Consult date: 03/27/20 Reason for Consult: Abdominal distention History of present illness: This is a 70-year-old male who's on the ventilator in the ICU for treatment of pneumonia. Dr. cheung asked to evaluate the patient for abdominal distention. The patient's abdomen has increased distention daily over the last 3 days. Past Medical History Past Medical History: GERD/Reflux, Hyperlipidemia, Hypertension, Myocardial Infarction ([place]), Renal Disease Additional Past Medical History / Comment(s): Mild [place] per EKG, lower back pain/2 herniated discs and vertebrae cracked, cervical pain since diving injury, pt has passed renal stones. Last Myocardial Infarction Date:: unkn History of Any Multi-Drug Resistant Organisms: None Reported Past Surgical History: Orthopedic Surgery Additional Past Surgical History / Comment(s): L knee arthroscopy, colonoscopy Past Anesthesia/Blood Transfusion Reactions: No Reported Reaction Smoking Status: Former smoker - Past Family History Father Family Medical History: Liver Disease Additional Family Medical History / Comment(s): Father of liver cirrhosis. Mother Family Medical History: Cancer Additional Family Medical History / Comment(s): Mother of lung cancer. She was a smoker. Brother(s) Family Medical History: Coronary Artery Disease (CAD) Additional Family Medical History / Comment(s): Brother had a [place] at the age of 46 yrs. Medications and Allergies Home Medications Medication Instructions Recorded Confirmed Type Acetaminophen/Diphenhydramine 1 tab PO HS 03/22/20 03/22/20 History [Tylenol PM 500-25mg] Aspirin EC [Ecotrin Low Dose] 81 mg PO DAILY 03/22/20 03/22/20 History Atorvastatin Calcium [Lipitor] 40 mg PO DAILY 03/22/20 03/22/20 History Losartan Potassium [Cozaar] 100 mg PO DAILY 03/22/20 03/22/20 History Omeprazole 40 mg PO DAILY 03/22/20 03/22/20 History amLODIPine [Norvasc] 10 mg PO DAILY 03/22/20 03/22/20 History Allergies Allergy/AdvReac Type Severity Reaction Status Date / Time No Known Allergies Allergy Verified 03/22/20 07:57 Surgical - Exam Vital Signs Temp Pulse Resp BP Pulse Ox 100.0 F H 92 18 129/73 95 03/22/20 07:10 03/22/20 07:10 03/22/20 07:10 03/22/20 07:10 03/22/20 07:10 - General Ventilator well developed - Eyes PERRL - ENT normal pinna - Neck no masses - Respiratory normal expansion - Cardiovascular Rhythm: regular - Abdomen Abdomen is distended., Abdomen soft. There was unable to elicit any significant pain on deep palpation Results - Labs 03/27/20 03:30 03/27/20 03:30 Abnormal Lab Results - Last 24 Hours (Table) 03/26/20 03/26/20 03/26/20 Range/Units 12:12 16:18 18:18 RBC (4.30-5.90) m/uL Hgb (13.0-17.5) gm/dL Hct (39.0-53.0) % Neutrophils # (1.3-7.7) k/uL Lymphocytes # (1.0-4.8) k/uL ABG pH (7.35-7.45) ABG pO2 (83-108) mmHg ABG HCO3 (21-25) mmol/L ABG O2 Saturation (94-97) % Sodium (137-145) mmol/L Carbon Dioxide (22-30) mmol/L BUN (9-20) mg/dL Creatinine (0.66-1.25) mg/dL Glucose (74-99) mg/dL POC Glucose (mg/dL) 279 H 296 H 337 H (75-99) mg/dL Calcium (8.4-10.2) mg/dL 03/26/20 03/26/20 03/27/20 Range/Units 20:53 23:13 02:40 RBC (4.30-5.90) m/uL Hgb (13.0-17.5) gm/dL Hct (39.0-53.0) % Neutrophils # (1.3-7.7) k/uL Lymphocytes # (1.0-4.8) k/uL ABG pH (7.35-7.45) ABG pO2 (83-108) mmHg ABG HCO3 (21-25) mmol/L ABG O2 Saturation (94-97) % Sodium (137-145) mmol/L Carbon Dioxide (22-30) mmol/L BUN (9-20) mg/dL Creatinine (0.66-1.25) mg/dL Glucose (74-99) mg/dL POC Glucose (mg/dL) 316 H 316 H 316 H (75-99) mg/dL Calcium (8.4-10.2) mg/dL 03/27/20 03/27/20 03/27/20 Range/Units 03:30 03:30 03:35 RBC 3.55 L (4.30-5.90) m/uL Hgb 11.3 L (13.0-17.5) gm/dL Hct 34.5 L (39.0-53.0) % Neutrophils # 9.5 H (1.3-7.7) k/uL Lymphocytes # 0.3 L (1.0-4.8) k/uL ABG pH 7.26 L (7.35-7.45) ABG pO2 74 L (83-108) mmHg ABG HCO3 18 L (21-25) mmol/L ABG O2 Saturation 92.0 L (94-97) % Sodium 134 L (137-145) mmol/L Carbon Dioxide 16 L (22-30) mmol/L BUN 93 H (9-20) mg/dL Creatinine 7.02 H* (0.66-1.25) mg/dL Glucose 310 H (74-99) mg/dL POC Glucose (mg/dL) (75-99) mg/dL Calcium 6.7 L (8.4-10.2) mg/dL 03/27/20 03/27/20 Range/Units 05:44 08:26 RBC (4.30-5.90) m/uL Hgb (13.0-17.5) gm/dL Hct (39.0-53.0) % Neutrophils # (1.3-7.7) k/uL Lymphocytes # (1.0-4.8) k/uL ABG pH (7.35-7.45) ABG pO2 (83-108) mmHg ABG HCO3 (21-25) mmol/L ABG O2 Saturation (94-97) % Sodium (137-145) mmol/L Carbon Dioxide (22-30) mmol/L BUN (9-20) mg/dL Creatinine (0.66-1.25) mg/dL Glucose (74-99) mg/dL POC Glucose (mg/dL) 303 H 300 H (75-99) mg/dL Calcium (8.4-10.2) mg/dL Microbiology - Last 24 Hours (Table) 03/22/20 13:51 Blood Culture - Preliminary Blood No Growth after 96 hours 03/24/20 10:30 Gram Stain - Final Sputum Sputum Culture - Final 03/24/20 11:19 Blood Culture - Preliminary Blood No Growth after 48 hours 03/24/20 09:08 Blood Culture - Preliminary Blood No Growth after 48 hours Diabetes panel 03/27/20 Range/Units 03:30 Sodium 134 L (137-145) mmol/L Potassium 4.6 (3.5-5.1) mmol/L Chloride 100 (98-107) mmol/L Carbon Dioxide 16 L (22-30) mmol/L BUN 93 H (9-20) mg/dL Creatinine 7.02 H* (0.66-1.25) mg/dL Glucose 310 H (74-99) mg/dL Calcium 6.7 L (8.4-10.2) mg/dL Calcium panel 03/27/20 Range/Units 03:30 Calcium 6.7 L (8.4-10.2) mg/dL Pituitary panel 03/27/20 Range/Units 03:30 Sodium 134 L (137-145) mmol/L Potassium 4.6 (3.5-5.1) mmol/L Chloride 100 (98-107) mmol/L Carbon Dioxide 16 L (22-30) mmol/L BUN 93 H (9-20) mg/dL Creatinine 7.02 H* (0.66-1.25) mg/dL Glucose 310 H (74-99) mg/dL Calcium 6.7 L (8.4-10.2) mg/dL Adrenal panel 03/27/20 Range/Units 03:30 Sodium 134 L (137-145) mmol/L Potassium 4.6 (3.5-5.1) mmol/L Chloride 100 (98-107) mmol/L Carbon Dioxide 16 L (22-30) mmol/L BUN 93 H (9-20) mg/dL Creatinine 7.02 H* (0.66-1.25) mg/dL Glucose 310 H (74-99) mg/dL Calcium 6.7 L (8.4-10.2) mg/dL Assessment and Plan Assessment: Abdominal distention. Patient most likely has an ileus. When patient is more stable. We can consider computed tomography scan of the abdomen to evaluate for any possible obstruction.
--- NOTE | 2020-03-27 10:44 | P.PN ---
Subjective Progress Note Date: 03/27/20 Principal diagnosis: Acute hypoxic respiratory failure Patient is still sedated and intubated. His overall condition is not improving. He still requiring vasopressors with norepinephrine and vasopressin. Minimal urine output over the last 24 hours with significant worsening of his creatinine. ICU team following closely. Nephrology team planning for dialysis today. Objective - Vital Signs Vital signs: Vital Signs Temp 98.6 F 03/27/20 08:00 Pulse 84 03/27/20 10:00 Resp 26 H 03/27/20 10:00 BP 82/52 03/27/20 08:00 Pulse Ox 95 03/27/20 10:00 Intake & Output 03/26/20 03/27/20 03/27/20 18:59 06:59 18:59 Intake Total 2041.642 2302.524 1761.551 Output Total 35 45 5 Balance 2006.642 2257.524 1756.551 Weight 106.2 kg 111.8 kg Intake: IV 312 1267 1524 0.9 NACL 240 170 50 0.9 NACL bolus 1000 Dextrose 5% in Water 1, 825 300 000 ml @ 75 mls/hr IV . [id number] [facility] with Sodium Bicarb (1 Meq/ml) 150 ml Rx#:[id number] Doxycycline 100 mg In 100 100 Sodium Chloride 0.9% 100 ml @ 100 mls/hr IVPB Q12HR [facility] Rx#:[id number] Piperacillin-Tazobactam 3 100 50 .375 gm In Sodium Chloride 0.9% 100 ml @ 25 mls/hr IVPB Q8HR [facility] Rx# :[id number] Pressure bag 72 72 24 Intake, IV Titration 1318.642 549.524 126.551 Amount Cisatracurium 200 mg In 195.322 60.154 Sodium Chloride 0.9% 180 ml @ 1 MCG/KG/MIN 5.715 mls/hr IV .Q24H [facility] Rx#: [id number] Dextrose 5% in Water 1, 800 75 000 ml @ 75 mls/hr IV . [id number] [facility] with Sodium Bicarb (1 Meq/ml) 150 ml Rx#:[id number] Levofloxacin 250Mg-D5w 50 Pmx 250 mg In Dextrose/ Water 1 50ml.bag @ 50 mls /hr IVPB Q24H [facility] Rx#: [id number] Norepinephrine 32 mg In 287.621 90.120 16.397 Sodium Chloride 0.9% 218 ml @ 0.05 MCG/KG/MIN 2. 233 mls/hr IV .Q24H [facility] Rx#:[id number] propofoL 1,000 mg In 88.116 Empty Bag 1 bag @ Titrate IV .Q0M [facility] Rx#: [id number] propofoL 500 mg In Empty 92.905 189.082 50 Bag 1 bag @ Titrate IV . Q0M [facility] Rx#:[id number] Tube Feeding 351 396 81 Other 60 90 30 Output: Urine 35 45 5 Other: Voiding Method Indwelling Catheter Indwelling Catheter ABP, PAP, CO, CI - Last Documented Arterial Blood Pressure 99/56 - Exam General: The patient is sedated and intubated Eye: there is normal conjunctiva bilaterally. Neck: The neck is supple, there is no JVD. Cardiovascular: Normal S1-S2, no S3-S4, no murmurs. Respiratory: Lungs mechanical ventilator sounds Gastrointestinal: Abdomen is soft, nontender, slightly distended Musculoskeletal: There is no pedal edema. Skin: Skin is warm and dry - Labs CBC & Chem 7: 03/27/20 03:30 03/27/20 03:30 Labs: Abnormal Lab Results - Last 24 Hours (Table) 03/26/20 03/26/20 03/26/20 Range/Units 12:12 16:18 18:18 RBC (4.30-5.90) m/uL Hgb (13.0-17.5) gm/dL Hct (39.0-53.0) % Neutrophils # (1.3-7.7) k/uL Lymphocytes # (1.0-4.8) k/uL ABG pH (7.35-7.45) ABG pO2 (83-108) mmHg ABG HCO3 (21-25) mmol/L ABG O2 Saturation (94-97) % Sodium (137-145) mmol/L Carbon Dioxide (22-30) mmol/L BUN (9-20) mg/dL Creatinine (0.66-1.25) mg/dL Glucose (74-99) mg/dL POC Glucose (mg/dL) 279 H 296 H 337 H (75-99) mg/dL Calcium (8.4-10.2) mg/dL 03/26/20 03/26/20 03/27/20 Range/Units 20:53 23:13 02:40 RBC (4.30-5.90) m/uL Hgb (13.0-17.5) gm/dL Hct (39.0-53.0) % Neutrophils # (1.3-7.7) k/uL Lymphocytes # (1.0-4.8) k/uL ABG pH (7.35-7.45) ABG pO2 (83-108) mmHg ABG HCO3 (21-25) mmol/L ABG O2 Saturation (94-97) % Sodium (137-145) mmol/L Carbon Dioxide (22-30) mmol/L BUN (9-20) mg/dL Creatinine (0.66-1.25) mg/dL Glucose (74-99) mg/dL POC Glucose (mg/dL) 316 H 316 H 316 H (75-99) mg/dL Calcium (8.4-10.2) mg/dL 03/27/20 03/27/20 03/27/20 Range/Units 03:30 03:30 03:35 RBC 3.55 L (4.30-5.90) m/uL Hgb 11.3 L (13.0-17.5) gm/dL Hct 34.5 L (39.0-53.0) % Neutrophils # 9.5 H (1.3-7.7) k/uL Lymphocytes # 0.3 L (1.0-4.8) k/uL ABG pH 7.26 L (7.35-7.45) ABG pO2 74 L (83-108) mmHg ABG HCO3 18 L (21-25) mmol/L ABG O2 Saturation 92.0 L (94-97) % Sodium 134 L (137-145) mmol/L Carbon Dioxide 16 L (22-30) mmol/L BUN 93 H (9-20) mg/dL Creatinine 7.02 H* (0.66-1.25) mg/dL Glucose 310 H (74-99) mg/dL POC Glucose (mg/dL) (75-99) mg/dL Calcium 6.7 L (8.4-10.2) mg/dL 03/27/20 03/27/20 03/27/20 Range/Units 05:44 08:26 10:18 RBC (4.30-5.90) m/uL Hgb (13.0-17.5) gm/dL Hct (39.0-53.0) % Neutrophils # (1.3-7.7) k/uL Lymphocytes # (1.0-4.8) k/uL ABG pH (7.35-7.45) ABG pO2 (83-108) mmHg ABG HCO3 (21-25) mmol/L ABG O2 Saturation (94-97) % Sodium (137-145) mmol/L Carbon Dioxide (22-30) mmol/L BUN (9-20) mg/dL Creatinine (0.66-1.25) mg/dL Glucose (74-99) mg/dL POC Glucose (mg/dL) 303 H 300 H 245 H (75-99) mg/dL Calcium (8.4-10.2) mg/dL Microbiology - Last 24 Hours (Table) 03/22/20 13:51 Blood Culture - Preliminary Blood No Growth after 96 hours 03/24/20 10:30 Gram Stain - Final Sputum Sputum Culture - Final 03/24/20 11:19 Blood Culture - Preliminary Blood No Growth after 48 hours 03/24/20 09:08 Blood Culture - Preliminary Blood No Growth after 48 hours Assessment and Plan Assessment: Patient is a 70-year-old male with a past medical history noted below who presented with a chief complaint of chest pain. Patient was evaluated in the ER and was noted to have evidence of sepsis with possible underlying pneumonia. He was admitted to the hospital and ACS was ruled out. He was started on antibiotic with IV ceftriaxone and oral azithromycin. He was a high suspicion for COVID-19 on initial presentation secondary to elevated inflammatory markers and his clinical presentation. COVID-19 test was negative twice including a rapid and a traditional PCR test. Patient was seen and evaluated by cardiology on presentation and ACS was ruled out. Echocardiogram showed a preserved ejection fraction with no significant wall motion abnormalities. On the morning on 03/23, his clinical condition started to deteriorate with increased oxygen requirement and increased work of breathing requiring transfer to the intensive care unit. Patient was eventually sedated and intubated requiring mechanical ventilation. Nose list of his medical problems addressed during this hospitalization. 1. Acute hypoxic respiratory failure requiring intubation and mechanical ventilation on 03/24. This is most likely secondary to underlying pneumonia with possible ARDS. Pulmonary edema ruled out by cardiology with a repeat echocardiogram showing preserved ejection fraction. He is currently in the ICU and ventilator being managed by ICU team. 2. Suspected acute diastolic heart failure exacerbation. Echocardiogram on presentation showed a preserved ejection fraction and no significant valvular abnormalities. Repeat limited echocardiogram showed EF of 55%. Patient received multiple doses of IV Lasix. 3. Left lower lobe pneumonia: There was a concern about possible francisella tularensis infection given history provided by family the patient was hunting coyotes. He was started initially on IV ceftriaxone and oral azithromycin and antibiotic changed to doxycycline and Levaquin on 03/24. Zosyn added by infectious disease. Sputum culture ordered. COVID-19 and influenza screen negative on admission 4. Severe sepsis with septic shock, requiring vasopressors. Managed by ICU team. Blood cultures negative to date 5. Acute kidney failure, oliguric. Suspected ATN Seen and evaluated by nephrology. Plan to start dialysis today. Repeat lab work in the morning. Monitor urine output closely. 6. Elevated troponin, troponin was positive on 03/24, most likely secondary to supply demand mismatch given septic shock. Cardiology following and the repeat echocardiogram ordered. 7. Chest pain with pleurisy on presentation: ACS ruled out. EKG on presentation with no acute ischemic changes. Troponin was negative on presentation. CT PE protocol negative for PE. 8. Suspected ileus, tube feeds has been held. We'll obtain x-ray for further evaluation. Gen. surgery consulted. 9. Hypomagnesemia and hyponatremia, on presentation now resolved 10. Chronic medical problems: Hyperlipidemia, hypertension, GERD 11. GI and DVT prophylaxis with IV Protonix and subcu Lovenox 12. CODE STATUS patient is full code
[2020-03-27 11:13] LABS: Glucose,Whole Blood 219 mg/dL (75-99)
[2020-03-27 11:36] LABS: Glucose,Whole Blood 198 mg/dL (75-99)
--- NOTE | 2020-03-27 11:46 | P.PN ---
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 This is a 70-year-old white male with history of hypertension and underlying coronary artery disease, patient was admitted yesterday with intermittent episod es of chest pains, pleuritic in nature, associated with dry cough, fever, chills, and diaphoresis for almost one week. Patient was initially seen in the ER on 03/21/2020, and he was discharged home in stable condition. His workup was basically nondiagnostic. And his chest x-ray was normal. The week prior to his presentation, patient shot a coyote, and he had to drag the coyote about 3-4 miles. Apparently he started having chest pain at the time of dragging the coyote, and his pain resolved as he rested. Over the following week, patient has been experiencing diffuse chest discomfort with deep inspiration, had no radiation of the pain, he had mostly intermittent episodes of cough, fever, chills, and that is when he came to the ER. Again patient was admitted on 03/22/2020, CT angiogram of the chest was done, and it was basically normal. There was no evidence of pulmonary embolism, no evidence of infiltrate, minimal left basilar atelectasis was noted. Chest x-ray upon admission was also normal. Patient was seen by cardiology on consultation on 03/22/2020, felt that the pain was atypical, pleuritic in nature, however there was a concern based on the consultation about his leukocytosis with fever and the airline reservation agent was concerned about underlying infectious process. His temperature upon admission was ranging between 100 and 103. Patient was treated empirically with antibioti cs in the form of Rocephin and Zithromax, however this morning patient was transferred to the ICU mostly because of worsening shortness of breath, worsening chest x-ray, hypotension, patient was placed on BiPAP, however he remained marginal and his overall pulmonary status, and upon my evaluation in the ICU, patient clearly needed to be intubated and placed on mechanical ventilation as he was clearly hypotensive, febrile, and he was also noted to have very marginal O2 saturation on 100% BiPAP. Discussed with the patient the need for intubation mechanical ventilation, he agreed, and the patient was intubated and placed on mechanical ventilation. Patient required also placement on norepinephrine, vasopressin, and his antibiotics coverage was broadened. Cardiology was asked to reevaluate him because of his increased troponin and his increase BNP level. Chest x-ray showed initially evidence of interstitial edema and possible underlying pneumonia. Post intubation, follow-up chest x-ray showed cardiomegaly, possible multifocal bilateral opacities a greater in the mid and lower lungs. Hence we'll broaden the spectrum of his antibiotics coverage, and the patient required to be placed on high FiO2, required high PEEP, and follow-up ABG done showed a pO2 of 71 pCO2 of 39 pH of 7.27 and this was on 100% FiO2, and PEEP of 10. Reevaluated today on 03/25/2020, patient remains in the ICU, intubated and mechanically ventilated. He is now on FiO2 of 80% assist control rate of 26, tidal volume is 450, PEEP at 12, however after reviewing his follow-up ABG this morning 2, I was able to cut down his FiO2 down to 65%, and the PEEP was increased to 14. Patient is on propofol at 40 mcg/kg/m, IV fluid at 75 mL per hour, sodium bicarb drip at 50 ML per hour vasopressin at 0.03 units per minute. Is also on norepinephrine at 0.75 mcg/kg/m, and the Nimbex at 1.5. Patient is also on Dilaudid 0.5 mg every 2 hours around the clock. Patient was started on enteral feeding today. Antibiotics ramon he is on doxycycline, Levaquin, and Zosyn was added by infectious disease on the case. Pro-calcitonin level is on the rise, it is 73.94, this is extremely high level. WBC count is up to 43.6. C-reactive protein is 545 chest x-ray is showing worsening right lower lobe infiltrate. Small left pleural effusion, lines and catheters are in proper positions ABG today showed a pO2 of 88 pCO2 of 42 pH of 7.24, hence the patient will remain on 65% FiO2, PEEP of 14, otherwise remaining vent settings will be unchanged. He is on assist control rate of 26 and tidal volume is 450. Patient was seen by infectious disease on consultation, Zosyn was added empirically in addition to doxycycline and Levaquin. Enteral feeding will be started today on this patient, and this would be addressing his nutritional support. Patient remains on GI and DVT prophylaxis. Reevaluated today on 03/26/2020, patient remains in the ICU, intubated and mechanically ventilated. He is on assist control rate of 26, volume is 450 FiO2 is 60% PEEP is 14, ABG showed a pO2 of 90 pCO2 of 39 pH of 7.26, hence his so dium bicarb drip was increased and his FiO2 was decreased down to 50% however The PEEP at 14. Patient remains on multiple drips including bicarb drip at 75 mL per hour, Nimbex at 1.5 mcg/kg/m, propofol at 50 mcg/kg/m, norepinephrine at 0.6 mcg/kg/m. Patient is not making much urine, his chest x-ray is showing slight improvement in his right lower lobe pneumonia. However obviously the patient remains quite ill, and septic requiring multiple pressors including norepinephrine and vasopressin. Considering the deterioration in his renal status, patient is definitely heading towards hemodialysis, and we'll consult vascular surgery for a dialysis catheter placement. The meantime the patient re alex on Levaquin, doxycycline, Zosyn, cultures so far are nondiagnostic including blood cultures and sputum cultures. Yesterday the patient was also started on Solu-Medrol, he had significant leukocytosis yesterday, improving, and repeat pro-calcitonin level is pending. Patient was given yesterday 80 mg of Lasix, hardly any response. Patient remains on enteral feeding. Slight distention of the abdomen was noted today, but x-rays of the abdomen were nondiagnostic of obstruction. WBC count today is 16.8 hemoglobin is 13. Continues to have significant neutrophilia, electrolytes are normal except bicarb remains low at 15. Liver enzymes/transaminases were noted to be a bit elevated. Likely consistent with shocked liver. White count today is 16.8 compared to 43.6 yesterday. Reevaluated today on 03/27/2020, patient remains in the ICU, intubated and mechanically ventilated. Patient is on the same ventilator settings assist control rate of 26 tidal volume is 450 FiO2 50% and PEEP of 14. Remains on multiple drips including vasopressin at 0.03 units per minute, norepinephrine was increased yesterday to 0.17 mcg/kg/m. Nimbex 1.5 mcg/kg/m. Propofol 40 mcg/kg/m. Bicarb drip 75 ML per hour. Patient remains on enteral feeding, however considering that the patient is developing high residual and some abdominal distention, I did recommend holding feeding and intermittent suction on the nasogastric tube. I also plan to discontinue Nimbex today, and replace it with fentanyl. The patient on the same ventilator settings except increase the flow rate to 70 L/m. I have also recommended surgical evaluation for his abdominal distention. X-rays of the abdomen are nondiagnostic. Patient is not stable enough to go down for CT of the abdomen and pelvis at this point considering he is requiring significant amount of pressors. Patient will be seen by nephrology today, and will likely undergo dialysis. Sodium bicarb was given. Nimbex would be discontinued, and bicarb will be given for his metabolic acidosis. Antibiotics remained the same. Chest x-ray is showing definite improvement, but that is not reflected on his oxygenation much. Cultures including blood cultures, sputum cultures are nondiagnostic so far. His sugars are running high, and I will recommend insulin drip on this patient. WBC count today is 10.2 hemoglobin is 11.3. ABG showed a pO2 of 74 pH of 7.26 pCO2 is 41. WBC count is 10.2 hemoglobin is 11.3. Renal profile is much worse today, BUN is 93 creatinine 7.02. Electrolytes are normal bicarb remains low at 16. Objective - Vital Signs Vital signs: Vital Signs Temp 98.6 F 03/27/20 08:00 Pulse 82 03/27/20 11:19 Resp 26 H 03/27/20 11:00 BP 82/52 03/27/20 08:00 Pulse Ox 95 03/27/20 11:00 Intake & Output 03/26/20 03/27/20 03/27/20 18:59 06:59 18:59 Intake Total 2040.642 2302.524 1927.550 Output Total 35 45 5 Balance 64 225.524 1921.550 Weight 106.2 kg 111.8 kg Intake: IV 312 1267 1630 0.9 NACL 240 170 50 0.9 NACL bolus 1000 Dextrose 5% in Water 1, 825 375 000 ml @ 75 mls/hr IV . [id number] ADAM with Sodium Bicarb (1 Meq/ml) 150 ml Rx#:[id number] Doxycycline 100 mg In 100 100 Sodium Chloride 0.9% 100 ml @ 100 mls/hr IVPB Q12HR [facility] Rx#:[id number] Piperacillin-Tazobactam 3 100 75 .375 gm In Sodium Chloride 0.9% 100 ml @ 25 mls/hr IVPB Q8HR [facility] Rx# :[id number] Pressure bag 72 72 30 Intake, IV Titration 1318.642 549.524 186.550 Amount Cisatracurium 200 mg In 195.322 60.154 Sodium Chloride 0.9% 180 ml @ 1 MCG/KG/MIN 5.715 mls/hr IV .Q24H [facility] Rx#: [id number] Dextrose 5% in Water 1, 800 75 000 ml @ 75 mls/hr IV . [id number] ADAM with Sodium Bicarb (1 Meq/ml) 150 ml Rx#:[id number] Insulin Regular 100 unit 9.999 In Sodium Chloride 0.9% 100 ml @ Per Protocol IV .Q0M [facility] Rx#:[id number] Levofloxacin 250Mg-D5w 50 Pmx 250 mg In Dextrose/ Water 1 50ml.bag @ 50 mls /hr IVPB Q24H [facility] Rx#: [id number] Norepinephrine 32 mg In 287.621 90.120 16.397 Sodium Chloride 0.9% 218 ml @ 0.05 MCG/KG/MIN 2. 233 mls/hr IV .Q24H [facility] Rx#:[id number] propofoL 1,000 mg In 88.116 Empty Bag 1 bag @ Titrate IV .Q0M [facility] Rx#: [id number] propofoL 500 mg In Empty 92.905 189.082 100 Bag 1 bag @ Titrate IV . Q0M [facility] Rx#:[id number] Tube Feeding 351 396 81 Other 60 90 30 Output: Urine 35 45 5 Other: Voiding Method Indwelling Catheter Indwelling Catheter ABP, PAP, CO, CI - Last Documented Arterial Blood Pressure 101/54 - Exam Physical Exam: Revealed a 70-year-old white male, intubated, sedated, paralyzed, on mechanical ventilation Head: Atraumatic, normocephalic. Endotracheal tube and orogastric tube are intact HEENT:[Neck is supple.] [No neck masses.] [No thyromegaly.] [No JVD.] Right IJ triple-lumen catheter is noted. Chest: [Symmetrical expansion, crackles at the bases him a specially in the right base. Cardiac Exam: [Normal S1 and S2, no S3 gallop, no murmur.] Abdomen: [Soft, slightly distended, diminished bowel sounds. nontender, no megaly, no rebound, no guarding Extremities: [No clubbing, no edema, no cyanosis.] Good pulses bilaterally. Neurological Exam: Could not be assessed, patient is sedated and paralyzed. Psychiatric: Could not be assessed. Skin: No rashes. Musculoskeletal: No deformities noted - Labs CBC & Chem 7: 03/27/20 03:30 03/27/20 03:30 Labs: Abnormal Lab Results - Last 24 Hours (Table) 03/26/20 03/26/20 03/26/20 Range/Units 12:12 16:18 18:18 RBC (4.30-5.90) m/uL Hgb (13.0-17.5) gm/dL Hct (39.0-53.0) % Neutrophils # (1.3-7.7) k/uL Lymphocytes # (1.0-4.8) k/uL ABG pH (7.35-7.45) ABG pO2 (83-108) mmHg ABG HCO3 (21-25) mmol/L ABG O2 Saturation (94-97) % Sodium (137-145) mmol/L Carbon Dioxide (22-30) mmol/L BUN (9-20) mg/dL Creatinine (0.66-1.25) mg/dL Glucose (74-99) mg/dL POC Glucose (mg/dL) 279 H 296 H 337 H (75-99) mg/dL Calcium (8.4-10.2) mg/dL 03/26/20 03/26/20 03/27/20 Range/Units 20:53 23:13 02:40 RBC (4.30-5.90) m/uL Hgb (13.0-17.5) gm/dL Hct (39.0-53.0) % Neutrophils # (1.3-7.7) k/uL Lymphocytes # (1.0-4.8) k/uL ABG pH (7.35-7.45) ABG pO2 (83-108) mmHg ABG HCO3 (21-25) mmol/L ABG O2 Saturation (94-97) % Sodium (137-145) mmol/L Carbon Dioxide (22-30) mmol/L BUN (9-20) mg/dL Creatinine (0.66-1.25) mg/dL Glucose (74-99) mg/dL POC Glucose (mg/dL) 316 H 316 H 316 H (75-99) mg/dL Calcium (8.4-10.2) mg/dL 03/27/20 03/27/20 03/27/20 Range/Units 03:30 03:30 03:35 RBC 3.55 L (4.30-5.90) m/uL Hgb 11.3 L (13.0-17.5) gm/dL Hct 34.5 L (39.0-53.0) % Neutrophils # 9.5 H (1.3-7.7) k/uL Lymphocytes # 0.3 L (1.0-4.8) k/uL ABG pH 7.26 L (7.35-7.45) ABG pO2 74 L (83-108) mmHg ABG HCO3 18 L (21-25) mmol/L ABG O2 Saturation 92.0 L (94-97) % Sodium 134 L (137-145) mmol/L Carbon Dioxide 16 L (22-30) mmol/L BUN 93 H (9-20) mg/dL Creatinine 7.02 H* (0.66-1.25) mg/dL Glucose 310 H (74-99) mg/dL POC Glucose (mg/dL) (75-99) mg/dL Calcium 6.7 L (8.4-10.2) mg/dL 03/27/20 03/27/20 03/27/20 Range/Units 05:44 08:26 10:18 RBC (4.30-5.90) m/uL Hgb (13.0-17.5) gm/dL Hct (39.0-53.0) % Neutrophils # (1.3-7.7) k/uL Lymphocytes # (1.0-4.8) k/uL ABG pH (7.35-7.45) ABG pO2 (83-108) mmHg ABG HCO3 (21-25) mmol/L ABG O2 Saturation (94-97) % Sodium (137-145) mmol/L Carbon Dioxide (22-30) mmol/L BUN (9-20) mg/dL Creatinine (0.66-1.25) mg/dL Glucose (74-99) mg/dL POC Glucose (mg/dL) 303 H 300 H 245 H (75-99) mg/dL Calcium (8.4-10.2) mg/dL 03/27/20 03/27/20 Range/Units 11:10 11:34 RBC (4.30-5.90) m/uL Hgb (13.0-17.5) gm/dL Hct (39.0-53.0) % Neutrophils # (1.3-7.7) k/uL Lymphocytes # (1.0-4.8) k/uL ABG pH (7.35-7.45) ABG pO2 (83-108) mmHg ABG HCO3 (21-25) mmol/L ABG O2 Saturation (94-97) % Sodium (137-145) mmol/L Carbon Dioxide (22-30) mmol/L BUN (9-20) mg/dL Creatinine (0.66-1.25) mg/dL Glucose (74-99) mg/dL POC Glucose (mg/dL) 219 H 198 H (75-99) mg/dL Calcium (8.4-10.2) mg/dL Microbiology - Last 24 Hours (Table) 03/24/20 09:08 Blood Culture - Preliminary Blood No Growth after 72 hours 03/22/20 13:51 Blood Culture - Preliminary Blood No Growth after 96 hours 03/24/20 10:30 Gram Stain - Final Sputum Sputum Culture - Final 03/24/20 11:19 Blood Culture - Preliminary Blood No Growth after 48 hours Assessment and Plan Assessment: Impression: Acute hypoxic respiratory failure requiring intubation and mechanical ventilation, this is secondary to acute pneumonia, 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 Titers for Francisella are pending. Sputum cultures and blood cultures are nondiagnostic so far. ARDS secondary to pneumonia and sepsis. Acute septic shock requiring pressors in the form of norepinephrine and vasopressin. Acute kidney injury, suspect acute tubular necrosis from hypotension and sepsis/septic shock. Based on his worsening renal profile, patient is having most likely towards hemodialysis Acute diastolic congestive heart failure is also strongly suspected considering the dramatic change on chest x-ray before the patient was intubated. Echocardiogram showed no evidence of LV dysfunction and showed no evidence of pe ricardial effusion. History of underlying coronary artery disease. History of hypertension. Multisystem organ failure. Secondary to sepsis and septic shock. Ex-smoker. Recommendation: Continue ventilatory support. FiO2 down to 50% PEEP remains at 14 Continue antibiotics, patient is on doxycycline, Levaquin, and Zosyn. Cultures so far nondiagnostic. Titers for Francisella are pending. Hold enteral feeding because of high residual and abdominal distention. Lactulose was ordered. Sodium bicarb was given. Start insulin drip for poorly controlled blood sugars. Continue sodium bicarb drip. Continue GI and DVT prophylaxis. Consider dialysis today. Patient will be seen by nephrology. Continue to monitor renal profile and liver profile daily. Overall prognosis remains extremely poor and guarded. Patient is obviously developing a multiorgan system failure, mortality is going to be relatively high. Prognosis is poor. Remains critically ill. Critical care time is 40 minutes. Johnnie surgery was consulted regarding his abdominal distention Time with Patient: Greater than 30
--- NOTE | 2020-03-27 11:51 | XR ---
Abdomen HISTORY: Distention Frontal view of the abdomen on 2 images correlated to prior abdomen dated 03/26/2020 There is a right groin dialysis catheter in place. Probable vascular calcifications are present withi n the pelvis. No evident bowel obstruction or pneumoperitoneum. NG tube is in place with the distal t ip in the distal stomach or proximal small bowel, patient is rotated. Entire abdomen is not included on the exam. Exam may be limited by portable technique. There are overlying leads, artifacts. IMPRESSION: No acute abnormalities evident with limitations as described.
[2020-03-27 12:49] LABS: Glucose,Whole Blood 168 mg/dL (75-99)
[2020-03-27 13:59] LABS: Glucose,Whole Blood 151 mg/dL (75-99)
[2020-03-27] MEDS: LEVOFLOXACIN 250MG-D5W PMX 250 MG in DEXTROSE/WATER 1 50ML.BAG IVPB SCH (14:30)
[2020-03-27 15:04] LABS: Glucose,Whole Blood 158 mg/dL (75-99)
[2020-03-27 16:29] LABS: Glucose,Whole Blood 142 mg/dL (75-99)
--- NOTE | 2020-03-27 17:52 | PN ---
PROGRESS NOTE DATE OF SERVICE: 03/27/2020 REASON FOR FOLLOWUP: Pneumonia. INTERVAL HISTORY: The patient is currently afebrile. The patient is hemodynamically slightly better, undergoing hemodialysis. FIO2 is currently 50%. No significant purulent secretions thru the ET or diarrhea has been reported. PHYSICAL EXAMINATION: Blood pressure 115/58 with a pulse of 75, temperature 98.6. He is 95% on 50% FiO2. General description is an elderly male intubated on the vent. Respiratory system: Unlabored breathing with decreased breath sounds in the base. No wheeze. Heart S1, S2. Regular rate and rhythm. Abdomen soft, no tenderness. LABS: Hemoglobin 11.1, white count 10.2. BUN of 93, creatinine 7.02. DIAGNOSTIC IMPRESSION AND PLAN: Patient with acute respiratory failure which is multifactorial in this patient who did have a component of pneumonia, likely bacterial and question of aspiration. Patient is currently covered with Zosyn in addition to doxy and Levaquin to cover for while waiting for the workup to be completed and monitor clinical course closely. MMODL / IJN: [id number] /
[2020-03-27] MEDS: SODIUM CHLORIDE 0.9% 150 ML with VASOPRESSIN 60 UNIT IV SCH ×2 (17:57)
[2020-03-27 19:01] LABS: Glucose,Whole Blood 159 mg/dL (75-99)
[2020-03-27 19:40] LABS: Glucose,Whole Blood 145 mg/dL (75-99)
[2020-03-27] MEDS: SODIUM CHLORIDE 0.9% 1,000 ML IV SCH (19:57)
[2020-03-27 21:07] LABS: Glucose,Whole Blood 151 mg/dL (75-99)
[2020-03-27 23:07] LABS: Glucose,Whole Blood 268 mg/dL (75-99)
[2020-03-28 00:23] LABS: Glucose,Whole Blood 137 mg/dL (75-99)
[2020-03-28 02:34] LABS: Glucose,Whole Blood 153 mg/dL (75-99)
[2020-03-28 03:23] LABS: Glucose,Whole Blood 156 mg/dL (75-99)
[2020-03-28 03:40] LABS: Basophils % (A) 0 %; Eosinophils % (A) 0 %; HCT 32.4 % (39.0-53.0); HGB 10.8 gm/dL (13.0-17.5); Lymphocytes # (A) 0.2 k/uL (1.0-4.8); Lymphocytes % (A) 3 %; MCH 31.3 pg (25.0-35.0); MCHC 33.4 g/dL (31.0-37.0); MCV 93.7 fL (80.0-100.0); Mean Platelet Volume 7.4; Monocytes # (A) 0.3 k/uL (0-1.0); Monocytes % (A) 4 %; Neutrophils % (A) 92 %; Platelet Count 246 k/uL (150-450); RBC 3.46 m/uL (4.30-5.90); RDW 14.5 % (11.5-15.5); WBC 7.6 k/uL (3.8-10.6)
[2020-03-28 04:01] LABS: Calcium 7.1 mg/dL (8.4-10.2); Potassium 4.6 mmol/L (3.5-5.1)
[2020-03-28] MEDS ORDERED: HEPARIN SODIUM,PORCINE 5,000 UNIT/ML 1 ML VIAL IV ONE (04:20)
[2020-03-28] MEDS ORDERED: HEPARIN SODIUM,PORCINE 5,000 UNIT/ML 1 ML VIAL IV PRN (04:20)
[2020-03-28 04:36] LABS: Glucose,Whole Blood 159 mg/dL (75-99)
[2020-03-28 05:05] LABS: ABG Base Excess -3.4 mmol/L; ABG HCO3 21 mmol/L (21-25); ABG Oxygen Saturation 94.7 % (94-97); ABG PCO2 34 mmHg (35-45); ABG PH 7.41 (7.35-7.45); ABG PO2 89 mmHg (83-108); ABG TCO2 22 mmol/L (19-24); Allen Test Performed? Yes
[2020-03-28] MEDS: HEPARIN SOD,PORK IN 0.45% NACL 25,000 UNIT in 0.45% NACL 1 250ML.BAG IV SCH (05:16)
[2020-03-28 05:34] LABS: INR 1.2 (<1.2); Partial Thromboplastin Time 24.2 sec (22.0-30.0); Prothrombin Time 12.8 sec (9.0-12.0)
[2020-03-28] MEDS: INSULIN DETEMIR (LEVEMIR) 100 UNIT/ML SYR SQ SCH ×2 (05:44→18:04)
[2020-03-28 05:45] LABS: Glucose,Whole Blood 164 mg/dL (75-99)
[2020-03-28] MEDS: methylPREDNISolone SOD SUCCI 125 MG/2 ML VIAL IV SCH (05:50)
[2020-03-28] MEDS: LACTULOSE 20 GM/30 ML CUP PO SCH ×2 (05:50→11:17)
[2020-03-28 07:08] LABS: Glucose,Whole Blood 169 mg/dL (75-99)
[2020-03-28] MEDS: IPRATROPIUM-ALBUTEROL 3 ML NEB INHALATION SCH ×4 (07:20→19:22)
--- NOTE | 2020-03-28 07:25 | XR ---
EXAMINATION TYPE: XR chest 1V portable DATE OF EXAM: 03/28/2020 COMPARISON: Chest x-ray 03/27/2020 HISTORY: Intubated TECHNIQUE: Single frontal view of the chest is obtained. FINDINGS: Patient is rotated. Endotracheal tube, NG tube, right-sided PICC line, right-sided jugular central venous catheter are overlying appropriate positions. No evident pneumothorax. Bibasilar incr eased attenuation is present, heart is enlarged. Perihilar airspace disease noted. IMPRESSION: Correlate for pneumonia, edema, there may be pleural effusion
--- NOTE | 2020-03-28 07:37 | P.PN ---
Subjective Progress Note Date: 03/28/20 Principal diagnosis: Acute hypoxic respiratory failure This is a 70-year-old gentleman who was admitted to the hospital with acute hypoxic respiratory failure and required intubation and mechanical ventilation. The exact etiology of the respiratory failure still not well cleared. He developed renal failure as well. The patient was seen today. He is hemodynamically stable and not on vasopressors anymore. He is on heparin as well as Lovenox and I'm going to DC the Lovenox and continue heparin IV. We need to consider starting the patient on oral anticoagulation if he is not going to undergo any surgical procedure. Beside that the chest x-ray was reviewed and showed pneumonia with pleural effusion as well. Objective - Vital Signs Vital signs: Vital Signs Temp 98.6 F 03/28/20 04:00 Pulse 77 03/28/20 07:31 Resp 26 H 03/28/20 07:00 BP 105/55 03/28/20 06:00 Pulse Ox 96 03/28/20 07:00 Intake & Output 03/27/20 03/28/20 03/28/20 18:59 06:59 18:59 Intake Total 2771.607 1222.560 81 Output Total 855 5 0 Balance 5856.131 1286.560 81 Weight 113.2 kg Intake: IV 2197 972 81 0.9 NACL 50 0.9 NACL bolus 1000 Dextrose 5% in Water 1, 900 900 75 000 ml @ 75 mls/hr IV . [id number] [facility] with Sodium Bicarb (1 Meq/ml) 150 ml Rx#:[id number] Doxycycline 100 mg In 100 Sodium Chloride 0.9% 100 ml @ 100 mls/hr IVPB Q12HR [facility] Rx#:[id number] Piperacillin-Tazobactam 3 75 .375 gm In Sodium Chloride 0.9% 100 ml @ 25 mls/hr IVPB Q8HR [facility] Rx# :[id number] Pressure bag 72 72 6 Intake, IV Titration 463.607 250.560 Amount Cisatracurium 200 mg In 60.154 Sodium Chloride 0.9% 180 ml @ 1 MCG/KG/MIN 5.715 mls/hr IV .Q24H [facility] Rx#: [id number] Insulin Regular 100 unit 26.496 38.566 In Sodium Chloride 0.9% 100 ml @ Per Protocol IV .Q0M [facility] Rx#:[id number] Levofloxacin 250Mg-D5w 50 Pmx 250 mg In Dextrose/ Water 1 50ml.bag @ 50 mls /hr IVPB Q24H [facility] Rx#: [id number] Norepinephrine 32 mg In 59.318 11.435 Sodium Chloride 0.9% 218 ml @ 0.05 MCG/KG/MIN 2. 233 mls/hr IV .Q24H [facility] Rx#:[id number] propofoL 500 mg In Empty 267.639 200.559 Bag 1 bag @ Titrate IV . Q0M [facility] Rx#:[id number] Tube Feeding 81 Other 30 Output: Gastric Drainage 600 Urine 55 5 0 Hemodialysis 200 Other: Voiding Method Indwelling Catheter Indwelling Catheter ABP, PAP, CO, CI - Last Documented Arterial Blood Pressure 113/47 - Constitutional General appearance: Present: no acute distress - Respiratory Respiratory: bilateral: diminished - Cardiovascular Heart sounds: normal: S1, S2 - Labs CBC & Chem 7: 03/28/20 03:25 03/28/20 03:25 Labs: Abnormal Lab Results - Last 24 Hours (Table) 03/27/20 03/27/20 03/27/20 Range/Units 08:26 10:18 11:10 RBC (4.30-5.90) m/uL Hgb (13.0-17.5) gm/dL Hct (39.0-53.0) % Lymphocytes # (1.0-4.8) k/uL PT (9.0-12.0) sec INR (<1.2) ABG pCO2 (35-45) mmHg Sodium (137-145) mmol/L Carbon Dioxide (22-30) mmol/L BUN (9-20) mg/dL Creatinine (0.66-1.25) mg/dL Glucose (74-99) mg/dL POC Glucose (mg/dL) 300 H 245 H 219 H (75-99) mg/dL Calcium (8.4-10.2) mg/dL 03/27/20 03/27/20 03/27/20 Range/Units 11:34 12:46 13:57 RBC (4.30-5.90) m/uL Hgb (13.0-17.5) gm/dL Hct (39.0-53.0) % Lymphocytes # (1.0-4.8) k/uL PT (9.0-12.0) sec INR (<1.2) ABG pCO2 (35-45) mmHg Sodium (137-145) mmol/L Carbon Dioxide (22-30) mmol/L BUN (9-20) mg/dL Creatinine (0.66-1.25) mg/dL Glucose (74-99) mg/dL POC Glucose (mg/dL) 198 H 168 H 151 H (75-99) mg/dL Calcium (8.4-10.2) mg/dL 03/27/20 03/27/20 03/27/20 Range/Units 15:01 16:27 18:59 RBC (4.30-5.90) m/uL Hgb (13.0-17.5) gm/dL Hct (39.0-53.0) % Lymphocytes # (1.0-4.8) k/uL PT (9.0-12.0) sec INR (<1.2) ABG pCO2 (35-45) mmHg Sodium (137-145) mmol/L Carbon Dioxide (22-30) mmol/L BUN (9-20) mg/dL Creatinine (0.66-1.25) mg/dL Glucose (74-99) mg/dL POC Glucose (mg/dL) 158 H 142 H 159 H (75-99) mg/dL Calcium (8.4-10.2) mg/dL 03/27/20 03/27/20 03/27/20 Range/Units 19:39 21:06 23:06 RBC (4.30-5.90) m/uL Hgb (13.0-17.5) gm/dL Hct (39.0-53.0) % Lymphocytes # (1.0-4.8) k/uL PT (9.0-12.0) sec INR (<1.2) ABG pCO2 (35-45) mmHg Sodium (137-145) mmol/L Carbon Dioxide (22-30) mmol/L BUN (9-20) mg/dL Creatinine (0.66-1.25) mg/dL Glucose (74-99) mg/dL POC Glucose (mg/dL) 145 H 151 H 268 H (75-99) mg/dL Calcium (8.4-10.2) mg/dL 03/28/20 03/28/2003/28/21 Range/Units 00:21 02:33 03:22 RBC (4.30-5.90) m/uL Hgb (13.0-17.5) gm/dL Hct (39.0-53.0) % Lymphocytes # (1.0-4.8) k/uL PT (9.0-12.0) sec INR (<1.2) ABG pCO2 (35-45) mmHg Sodium (137-145) mmol/L Carbon Dioxide (22-30) mmol/L BUN (9-20) mg/dL Creatinine (0.66-1.25) mg/dL Glucose (74-99) mg/dL POC Glucose (mg/dL) 137 H 153 H 156 H (75-99) mg/dL Calcium (8.4-10.2) mg/dL 03/28/20 03/28/20 03/28/20 Range/Units 03:25 03:25 04:34 RBC 3.46 L (4.30-5.90) m/uL Hgb 10.8 L (13.0-17.5) gm/dL Hct 32.4 L (39.0-53.0) % Lymphocytes # 0.2 L (1.0-4.8) k/uL PT (9.0-12.0) sec INR (<1.2) ABG pCO2 (35-45) mmHg Sodium 136 L (137-145) mmol/L Carbon Dioxide 18 L (22-30) mmol/L BUN 90 H (9-20) mg/dL Creatinine 6.27 H (0.66-1.25) mg/dL Glucose 157 H (74-99) mg/dL POC Glucose (mg/dL) 159 H (75-99) mg/dL Calcium 7.1 L (8.4-10.2) mg/dL 03/28/20 03/28/20 03/28/20 Range/Units 04:35 05:00 05:44 RBC (4.30-5.90) m/uL Hgb (13.0-17.5) gm/dL Hct (39.0-53.0) % Lymphocytes # (1.0-4.8) k/uL PT 12.8 H (9.0-12.0) sec INR 1.2 H (<1.2) ABG pCO2 34 L (35-45) mmHg Sodium (137-145) mmol/L Carbon Dioxide (22-30) mmol/L BUN (9-20) mg/dL Creatinine (0.66-1.25) mg/dL Glucose (74-99) mg/dL POC Glucose (mg/dL) 164 H (75-99) mg/dL Calcium (8.4-10.2) mg/dL 03/28/20 Range/Units 07:07 RBC (4.30-5.90) m/uL Hgb (13.0-17.5) gm/dL Hct (39.0-53.0) % Lymphocytes # (1.0-4.8) k/uL PT (9.0-12.0) sec INR (<1.2) ABG pCO2 (35-45) mmHg Sodium (137-145) mmol/L Carbon Dioxide (22-30) mmol/L BUN (9-20) mg/dL Creatinine (0.66-1.25) mg/dL Glucose (74-99) mg/dL POC Glucose (mg/dL) 169 H (75-99) mg/dL Calcium (8.4-10.2) mg/dL Microbiology - Last 24 Hours (Table) 03/22/20 13:51 Blood Culture - Preliminary Blood No Growth after 120 hours 03/24/20 11:19 Blood Culture - Preliminary Blood No Growth after 72 hours 03/24/20 09:08 Blood Culture - Preliminary Blood No Growth after 72 hours Assessment and Plan Assessment: Assessment #1 acute hypoxic respiratory failure #2 acute septic shock #3 acute renal failure #4 component of diastolic heart failure #5 multiple comorbid conditions Plan #1 continue the current medical regimen #2 DC Lovenox and continue heparin #3 consider oral anticoagulation down the line
[2020-03-28] MEDS: PIPERACILLIN-TAZOBACTAM 3.375 GM in SODIUM CHLORIDE 0.9% 100 ML IVPB SCH ×2 (08:02→22:10)
[2020-03-28] MEDS: PANTOPRAZOLE 40 MG/10 ML VIAL IVP SCH (08:03)
[2020-03-28] MEDS: DOXYCYCLINE 100 MG in SODIUM CHLORIDE 0.9% 100 ML IVPB SCH ×2 (08:03→20:17)
[2020-03-28] MEDS: ASPIRIN 81 MG PO SCH (08:03)
[2020-03-28] MEDS: ATORVASTATIN 40 MG TAB PO SCH (08:03)
[2020-03-28 08:25] LABS: Glucose,Whole Blood 199 mg/dL (75-99)
--- NOTE | 2020-03-28 09:40 | P.PN ---
Subjective Progress Note Date: 03/28/20 Principal diagnosis: This is a 70-year-old male seen in follow-up with acute kidney injury, ATN and auric. He was admitted with sepsis, likely from pneumonia and blood cultures have been negative. Coronary artery disease was ruled out. He is intubated and on multiple vasopressors including levo fed, vasopressin, on ventilator at 50% FiO2. Blood pressure remains low. He is in normal sinus rhythm. His temperature is 90.9 max. Is also on a bicarb drip. He was dialyzed yesterday 4 hours low efficiency and did well. Past history significant for hypertension [place] GERD hyperlipidemia and kidney stones in the past Objective - Vital Signs Vital signs: Vital Signs Temp 98.6 F 03/28/20 04:00 Pulse 72 03/28/20 08:00 Resp 30 H 03/28/20 08:00 BP 105/55 03/28/20 06:00 Pulse Ox 94 L 03/28/20 08:00 Intake & Output 03/27/20 03/28/20 03/28/20 18:59 06:59 18:59 Intake Total 2771.607 1222.560 151.150 Output Total 855 5 0 Balance 9940.823 0578.560 151.150 Weight 113.2 kg Intake: IV 2197 972 81 0.9 NACL 50 0.9 NACL bolus 1000 Dextrose 5% in Water 1, 900 900 75 000 ml @ 75 mls/hr IV . [id number] [facility] with Sodium Bicarb (1 Meq/ml) 150 ml Rx#:[id number] Doxycycline 100 mg In 100 Sodium Chloride 0.9% 100 ml @ 100 mls/hr IVPB Q12HR [facility] Rx#:[id number] Piperacillin-Tazobactam 3 75 .375 gm In Sodium Chloride 0.9% 100 ml @ 25 mls/hr IVPB Q8HR [facility] Rx# :[id number] Pressure bag 72 72 6 Intake, IV Titration 463.607 250.560 70.150 Amount Cisatracurium 200 mg In 60.154 Sodium Chloride 0.9% 180 ml @ 1 MCG/KG/MIN 5.715 mls/hr IV .Q24H [facility] Rx#: [id number] Insulin Regular 100 unit 26.496 38.566 8.232 In Sodium Chloride 0.9% 100 ml @ Per Protocol IV .Q0M [facility] Rx#:[id number] Levofloxacin 250Mg-D5w 50 Pmx 250 mg In Dextrose/ Water 1 50ml.bag @ 50 mls /hr IVPB Q24H [facility] Rx#: [id number] Norepinephrine 32 mg In 59.318 11.435 1.608 Sodium Chloride 0.9% 218 ml @ 0.05 MCG/KG/MIN 2. 233 mls/hr IV .Q24H [facility] Rx#:[id number] propofoL 500 mg In Empty 267.639 200.559 60.310 Bag 1 bag @ Titrate IV . Q0M [facility] Rx#:[id number] Tube Feeding 81 Other 30 Output: Gastric Drainage 600 Urine 55 5 0 Hemodialysis 200 Other: Voiding Method Indwelling Catheter Indwelling Catheter ABP, PAP, CO, CI - Last Documented Arterial Blood Pressure 97/47 On examination he is intubated sedated HEENT exam difficult to examine No facial asymmetry noted Lungs are clear to auscultation fair air entry bilaterally Heart sounds are unremarkable. No murmur rub gallop Abdomen is somewhat bloated. Extremity exam reveals mild edema all over Neurologically obtunded and sedated - Labs CBC & Chem 7: 03/28/20 03:25 03/28/20 03:25 Labs: Abnormal Lab Results - Last 24 Hours (Table) 03/27/20 03/27/20 03/27/20 Range/Units 10:18 11:10 11:34 RBC (4.30-5.90) m/uL Hgb (13.0-17.5) gm/dL Hct (39.0-53.0) % Lymphocytes # (1.0-4.8) k/uL PT (9.0-12.0) sec INR (<1.2) ABG pCO2 (35-45) mmHg Sodium (137-145) mmol/L Carbon Dioxide (22-30) mmol/L BUN (9-20) mg/dL Creatinine (0.66-1.25) mg/dL Glucose (74-99) mg/dL POC Glucose (mg/dL) 245 H 219 H 198 H (75-99) mg/dL Calcium (8.4-10.2) mg/dL C-Reactive Protein (<10.0) mg/L 03/27/20 03/27/20 03/27/20 Range/Units 12:46 13:57 15:01 RBC (4.30-5.90) m/uL Hgb (13.0-17.5) gm/dL Hct (39.0-53.0) % Lymphocytes # (1.0-4.8) k/uL PT (9.0-12.0) sec INR (<1.2) ABG pCO2 (35-45) mmHg Sodium (137-145) mmol/L Carbon Dioxide (22-30) mmol/L BUN (9-20) mg/dL Creatinine (0.66-1.25) mg/dL Glucose (74-99) mg/dL POC Glucose (mg/dL) 168 H 151 H 158 H (75-99) mg/dL Calcium (8.4-10.2) mg/dL C-Reactive Protein (<10.0) mg/L 03/27/20 03/27/20 03/27/20 Range/Units 16:27 18:59 19:39 RBC (4.30-5.90) m/uL Hgb (13.0-17.5) gm/dL Hct (39.0-53.0) % Lymphocytes # (1.0-4.8) k/uL PT (9.0-12.0) sec INR (<1.2) ABG pCO2 (35-45) mmHg Sodium (137-145) mmol/L Carbon Dioxide (22-30) mmol/L BUN (9-20) mg/dL Creatinine (0.66-1.25) mg/dL Glucose (74-99) mg/dL POC Glucose (mg/dL) 142 H 159 H 145 H (75-99) mg/dL Calcium (8.4-10.2) mg/dL C-Reactive Protein (<10.0) mg/L 03/27/20 03/27/20 03/28/20 Range/Units 21:06 23:06 00:21 RBC (4.30-5.90) m/uL Hgb (13.0-17.5) gm/dL Hct (39.0-53.0) % Lymphocytes # (1.0-4.8) k/uL PT (9.0-12.0) sec INR (<1.2) ABG pCO2 (35-45) mmHg Sodium (137-145) mmol/L Carbon Dioxide (22-30) mmol/L BUN (9-20) mg/dL Creatinine (0.66-1.25) mg/dL Glucose (74-99) mg/dL POC Glucose (mg/dL) 151 H 268 H 137 H (75-99) mg/dL Calcium (8.4-10.2) mg/dL C-Reactive Protein (<10.0) mg/L 03/28/20 03/28/20 03/28/20 Range/Units 02:33 03:22 03:25 RBC 3.46 L (4.30-5.90) m/uL Hgb 10.8 L (13.0-17.5) gm/dL Hct 32.4 L (39.0-53.0) % Lymphocytes # 0.2 L (1.0-4.8) k/uL PT (9.0-12.0) sec INR (<1.2) ABG pCO2 (35-45) mmHg Sodium (137-145) mmol/L Carbon Dioxide (22-30) mmol/L BUN (9-20) mg/dL Creatinine (0.66-1.25) mg/dL Glucose (74-99) mg/dL POC Glucose (mg/dL) 153 H 156 H (75-99) mg/dL Calcium (8.4-10.2) mg/dL C-Reactive Protein (<10.0) mg/L 03/28/20 03/28/20 03/28/20 Range/Units 03:25 03:25 04:34 RBC (4.30-5.90) m/uL Hgb (13.0-17.5) gm/dL Hct (39.0-53.0) % Lymphocytes # (1.0-4.8) k/uL PT (9.0-12.0) sec INR (<1.2) ABG pCO2 (35-45) mmHg Sodium 136 L (137-145) mmol/L Carbon Dioxide 18 L (22-30) mmol/L BUN 90 H (9-20) mg/dL Creatinine 6.27 H (0.66-1.25) mg/dL Glucose 157 H (74-99) mg/dL POC Glucose (mg/dL) 159 H (75-99) mg/dL Calcium 7.1 L (8.4-10.2) mg/dL C-Reactive Protein 165.5 H (<10.0) mg/L 03/28/20 03/28/20 03/28/20 Range/Units 04:35 05:00 05:44 RBC (4.30-5.90) m/uL Hgb (13.0-17.5) gm/dL Hct (39.0-53.0) % Lymphocytes # (1.0-4.8) k/uL PT 12.8 H (9.0-12.0) sec INR 1.2 H (<1.2) ABG pCO2 34 L (35-45) mmHg Sodium (137-145) mmol/L Carbon Dioxide (22-30) mmol/L BUN (9-20) mg/dL Creatinine (0.66-1.25) mg/dL Glucose (74-99) mg/dL POC Glucose (mg/dL) 164 H (75-99) mg/dL Calcium (8.4-10.2) mg/dL C-Reactive Protein (<10.0) mg/L 03/28/20 03/28/20 Range/Units 07:07 08:24 RBC (4.30-5.90) m/uL Hgb (13.0-17.5) gm/dL Hct (39.0-53.0) % Lymphocytes # (1.0-4.8) k/uL PT (9.0-12.0) sec INR (<1.2) ABG pCO2 (35-45) mmHg Sodium (137-145) mmol/L Carbon Dioxide (22-30) mmol/L BUN (9-20) mg/dL Creatinine (0.66-1.25) mg/dL Glucose (74-99) mg/dL POC Glucose (mg/dL) 169 H 199 H (75-99) mg/dL Calcium (8.4-10.2) mg/dL C-Reactive Protein (<10.0) mg/L Microbiology - Last 24 Hours (Table) 03/22/20 13:51 Blood Culture - Preliminary Blood No Growth after 120 hours 03/24/20 11:19 Blood Culture - Preliminary Blood No Growth after 72 hours 03/24/20 09:08 Blood Culture - Preliminary Blood No Growth after 72 hours Assessment and Plan Assessment: Impression 1. Acute kidney injury with ATN oliguric to anuric. Secondary to sepsis and hypotension, hemodialysis dependent first dialysis yesterday 4 hours of low efficiency dialysis tolerated well. No urine output since yesterday 2. Sepsis source likely pneumonia cultures negative so far. Chest x-ray shows slight worsening 3. Metabolic acidosis with pH of 7.26 pCO2 of 41 bicarb is 16 with gap of 18 etiology is acute kidney injury and shock. Postdialysis this morning his pH is 7.41 pCO2 was 34 and bicarb is 18 4. Anemia hemoglobin 7.3. Recommendation. 1. Will continue hemodialysis #2 this morning, blood flow of 300 dialysis flow 600 takeoff 1 L. 2. Suggest discontinuation of bicarb drip. His bicarb is expected to improve his dialysis 3. Continue to monitor electrolytes blood pressure and urine output.
[2020-03-28] MEDS: CHLORHEXIDINE GLUCONATE 15 ML CUP MUCOUS MEM SCH ×2 (09:43→20:51)
[2020-03-28 09:45] LABS: Albumin 2.3 g/dL (3.5-5.0); Total Bilirubin 1.6 mg/dL (0.2-1.3); Total Protein 4.7 g/dL (6.3-8.2)
[2020-03-28 09:47] LABS: Glucose,Whole Blood 174 mg/dL (75-99)
[2020-03-28] MEDS: DEXTROSE 5% IN WATER 1,000 ML with SODIUM BICARB (1 MEQ/ML) 150 ML IV SCH ×2 (09:53→21:11)
--- NOTE | 2020-03-28 10:36 | P.PN ---
Subjective Progress Note Date: 03/28/20 Principal diagnosis: Acute hypoxic respiratory failure Patient is clinically better today. At 4:30 vasopressors were discontinued completely and blood pressure was within acceptable range up until an hour ago where he was started on a low-dose levo fed. Patient also had a bowel movement yesterday. Abdominal x-ray showed no evidence of SBO. Nursing staff any to resume NG tube feeding today. Objective - Vital Signs Vital signs: Vital Signs Temp 98.6 F 03/28/20 04:00 Pulse 69 03/28/20 10:00 Resp 27 H 03/28/20 10:00 BP 105/55 03/28/20 06:00 Pulse Ox 94 L 03/28/20 10:00 Intake & Output 03/27/20 03/28/20 03/28/20 18:59 06:59 18:59 Intake Total 2771.607 1222.560 640.697 Output Total 855 5 0 Balance 6023.014 6484.560 640.697 Weight 113.2 kg Intake: IV 2197 972 415 0.9 NACL 50 0.9 NACL bolus 1000 Dextrose 5% in Water 1, 900 900 300 000 ml @ 75 mls/hr IV . [id number] [facility] with Sodium Bicarb (1 Meq/ml) 150 ml Rx#:[id number] Doxycycline 100 mg In 100 100 Sodium Chloride 0.9% 100 ml @ 100 mls/hr IVPB Q12HR [facility] Rx#:[id number] Piperacillin-Tazobactam 3 75 .375 gm In Sodium Chloride 0.9% 100 ml @ 25 mls/hr IVPB Q8HR [facility] Rx# :[id number] Pressure bag 72 72 15 Intake, IV Titration 463.607 250.560 225.697 Amount Cisatracurium 200 mg In 60.154 Sodium Chloride 0.9% 180 ml @ 1 MCG/KG/MIN 5.715 mls/hr IV .Q24H [facility] Rx#: [id number] Insulin Regular 100 unit 26.496 38.566 8.232 In Sodium Chloride 0.9% 100 ml @ Per Protocol IV .Q0M [facility] Rx#:[id number] Levofloxacin 250Mg-D5w 50 Pmx 250 mg In Dextrose/ Water 1 50ml.bag @ 50 mls /hr IVPB Q24H [facility] Rx#: [id number] Norepinephrine 32 mg In 59.318 11.435 1.608 Sodium Chloride 0.9% 218 ml @ 0.05 MCG/KG/MIN 2. 233 mls/hr IV .Q24H [facility] Rx#:[id number] Piperacillin-Tazobactam 3 75 .375 gm In Sodium Chloride 0.9% 100 ml @ 25 mls/hr IVPB Q12HR [facility] Rx #:[id number] fentaNYL (PF) 1,000 mcg 66.205 In Sodium Chloride 0.9% 80 ml @ Per Protocol IV . Q0M [facility] Rx#:[id number] propofoL 500 mg In Empty 267.639 200.559 74.652 Bag 1 bag @ Titrate IV . Q0M [facility] Rx#:[id number] Tube Feeding 81 Other 30 Output: Gastric Drainage 600 Urine 55 5 0 Hemodialysis 200 Other: Voiding Method Indwelling Catheter Indwelling Catheter ABP, PAP, CO, CI - Last Documented Arterial Blood Pressure 114/52 - Exam General: The patient is sedated and intubated Eye: there is normal conjunctiva bilaterally. Neck: The neck is supple, there is no JVD. Cardiovascular: Normal S1-S2, no S3-S4, no murmurs. Respiratory: Lungs mechanical ventilator sounds Gastrointestinal: Abdomen is soft, nontender, slightly distended Musculoskeletal: There is no pedal edema. Skin: Skin is warm and dry - Labs CBC & Chem 7: 03/28/20 03:25 03/28/20 03:25 Labs: Abnormal Lab Results - Last 24 Hours (Table) 03/27/20 03/27/20 03/27/20 Range/Units 11:10 11:34 12:46 RBC (4.30-5.90) m/uL Hgb (13.0-17.5) gm/dL Hct (39.0-53.0) % Lymphocytes # (1.0-4.8) k/uL PT (9.0-12.0) sec INR (<1.2) ABG pCO2 (35-45) mmHg Sodium (137-145) mmol/L Carbon Dioxide (22-30) mmol/L BUN (9-20) mg/dL Creatinine (0.66-1.25) mg/dL Glucose (74-99) mg/dL POC Glucose (mg/dL) 219 H 198 H 168 H (75-99) mg/dL Calcium (8.4-10.2) mg/dL Total Bilirubin (0.2-1.3) mg/dL AST (17-59) U/L ALT (4-49) U/L Alkaline Phosphatase (38-126) U/L C-Reactive Protein (<10.0) mg/L Total Protein (6.3-8.2) g/dL Albumin (3.5-5.0) g/dL 03/27/20 03/27/20 03/27/20 Range/Units 13:57 15:01 16:27 RBC (4.30-5.90) m/uL Hgb (13.0-17.5) gm/dL Hct (39.0-53.0) % Lymphocytes # (1.0-4.8) k/uL PT (9.0-12.0) sec INR (<1.2) ABG pCO2 (35-45) mmHg Sodium (137-145) mmol/L Carbon Dioxide (22-30) mmol/L BUN (9-20) mg/dL Creatinine (0.66-1.25) mg/dL Glucose (74-99) mg/dL POC Glucose (mg/dL) 151 H 158 H 142 H (75-99) mg/dL Calcium (8.4-10.2) mg/dL Total Bilirubin (0.2-1.3) mg/dL AST (17-59) U/L ALT (4-49) U/L Alkaline Phosphatase (38-126) U/L C-Reactive Protein (<10.0) mg/L Total Protein (6.3-8.2) g/dL Albumin (3.5-5.0) g/dL 03/27/20 03/27/20 03/27/20 Range/Units 18:59 19:39 21:06 RBC (4.30-5.90) m/uL Hgb (13.0-17.5) gm/dL Hct (39.0-53.0) % Lymphocytes # (1.0-4.8) k/uL PT (9.0-12.0) sec INR (<1.2) ABG pCO2 (35-45) mmHg Sodium (137-145) mmol/L Carbon Dioxide (22-30) mmol/L BUN (9-20) mg/dL Creatinine (0.66-1.25) mg/dL Glucose (74-99) mg/dL POC Glucose (mg/dL) 159 H 145 H 151 H (75-99) mg/dL Calcium (8.4-10.2) mg/dL Total Bilirubin (0.2-1.3) mg/dL AST (17-59) U/L ALT (4-49) U/L Alkaline Phosphatase (38-126) U/L C-Reactive Protein (<10.0) mg/L Total Protein (6.3-8.2) g/dL Albumin (3.5-5.0) g/dL 03/27/20 03/28/20 03/28/20 Range/Units 23:06 00:21 02:33 RBC (4.30-5.90) m/uL Hgb (13.0-17.5) gm/dL Hct (39.0-53.0) % Lymphocytes # (1.0-4.8) k/uL PT (9.0-12.0) sec INR (<1.2) ABG pCO2 (35-45) mmHg Sodium (137-145) mmol/L Carbon Dioxide (22-30) mmol/L BUN (9-20) mg/dL Creatinine (0.66-1.25) mg/dL Glucose (74-99) mg/dL POC Glucose (mg/dL) 268 H 137 H 153 H (75-99) mg/dL Calcium (8.4-10.2) mg/dL Total Bilirubin (0.2-1.3) mg/dL AST (17-59) U/L ALT (4-49) U/L Alkaline Phosphatase (38-126) U/L C-Reactive Protein (<10.0) mg/L Total Protein (6.3-8.2) g/dL Albumin (3.5-5.0) g/dL 03/28/20 03/28/20 03/28/20 Range/Units 03:22 03:25 03:25 RBC 3.46 L (4.30-5.90) m/uL Hgb 10.8 L (13.0-17.5) gm/dL Hct 32.4 L (39.0-53.0) % Lymphocytes # 0.2 L (1.0-4.8) k/uL PT (9.0-12.0) sec INR (<1.2) ABG pCO2 (35-45) mmHg Sodium 136 L (137-145) mmol/L Carbon Dioxide 18 L (22-30) mmol/L BUN 90 H (9-20) mg/dL Creatinine 6.27 H (0.66-1.25) mg/dL Glucose 157 H (74-99) mg/dL POC Glucose (mg/dL) 156 H (75-99) mg/dL Calcium 7.1 L (8.4-10.2) mg/dL Total Bilirubin 1.6 H (0.2-1.3) mg/dL AST 143 H (17-59) U/L ALT 133 H (4-49) U/L Alkaline Phosphatase 200 H (38-126) U/L C-Reactive Protein (<10.0) mg/L Total Protein 4.7 L (6.3-8.2) g/dL Albumin 2.3 L (3.5-5.0) g/dL 03/28/20 03/28/20 03/28/20 Range/Units 03:25 04:34 04:35 RBC (4.30-5.90) m/uL Hgb (13.0-17.5) gm/dL Hct (39.0-53.0) % Lymphocytes # (1.0-4.8) k/uL PT 12.8 H (9.0-12.0) sec INR 1.2 H (<1.2) ABG pCO2 (35-45) mmHg Sodium (137-145) mmol/L Carbon Dioxide (22-30) mmol/L BUN (9-20) mg/dL Creatinine (0.66-1.25) mg/dL Glucose (74-99) mg/dL POC Glucose (mg/dL) 159 H (75-99) mg/dL Calcium (8.4-10.2) mg/dL Total Bilirubin (0.2-1.3) mg/dL AST (17-59) U/L ALT (4-49) U/L Alkaline Phosphatase (38-126) U/L C-Reactive Protein 165.5 H (<10.0) mg/L Total Protein (6.3-8.2) g/dL Albumin (3.5-5.0) g/dL 03/28/20 03/28/20 03/28/20 Range/Units 05:00 05:44 07:07 RBC (4.30-5.90) m/uL Hgb (13.0-17.5) gm/dL Hct (39.0-53.0) % Lymphocytes # (1.0-4.8) k/uL PT (9.0-12.0) sec INR (<1.2) ABG pCO2 34 L (35-45) mmHg Sodium (137-145) mmol/L Carbon Dioxide (22-30) mmol/L BUN (9-20) mg/dL Creatinine (0.66-1.25) mg/dL Glucose (74-99) mg/dL POC Glucose (mg/dL) 164 H 169 H (75-99) mg/dL Calcium (8.4-10.2) mg/dL Total Bilirubin (0.2-1.3) mg/dL AST (17-59) U/L ALT (4-49) U/L Alkaline Phosphatase (38-126) U/L C-Reactive Protein (<10.0) mg/L Total Protein (6.3-8.2) g/dL Albumin (3.5-5.0) g/dL 03/28/20 03/28/20 Range/Units 08:24 09:45 RBC (4.30-5.90) m/uL Hgb (13.0-17.5) gm/dL Hct (39.0-53.0) % Lymphocytes # (1.0-4.8) k/uL PT (9.0-12.0) sec INR (<1.2) ABG pCO2 (35-45) mmHg Sodium (137-145) mmol/L Carbon Dioxide (22-30) mmol/L BUN (9-20) mg/dL Creatinine (0.66-1.25) mg/dL Glucose (74-99) mg/dL POC Glucose (mg/dL) 199 H 174 H (75-99) mg/dL Calcium (8.4-10.2) mg/dL Total Bilirubin (0.2-1.3) mg/dL AST (17-59) U/L ALT (4-49) U/L Alkaline Phosphatase (38-126) U/L C-Reactive Protein (<10.0) mg/L Total Protein (6.3-8.2) g/dL Albumin (3.5-5.0) g/dL Microbiology - Last 24 Hours (Table) 03/22/20 13:51 Blood Culture - Preliminary Blood No Growth after 120 hours 03/24/20 11:19 Blood Culture - Preliminary Blood No Growth after 72 hours 03/24/20 09:08 Blood Culture - Preliminary Blood No Growth after 72 hours Assessment and Plan Assessment: Patient is a 70-year-old male with a past medical history noted below who presented with a chief complaint of chest pain. Patient was evaluated in the ER and was noted to have evidence of sepsis with possible underlying pneumonia. He was admitted to the hospital and ACS was ruled out. He was started on antibiotic with IV ceftriaxone and oral azithromycin. He was a high suspicion for COVID-19 on initial presentation secondary to elevated inflammatory markers and his clinical presentation. COVID-19 test was negative twice including a rapid and a traditional PCR test. Patient was seen and evaluated by cardiology on presentation and ACS was ruled out. Echocardiogram showed a preserved e jection fraction with no significant wall motion abnormalities. On the morning on 03/23, his clinical condition started to deteriorate with increased oxygen requirement and increased work of breathing requiring transfer to the intensive care unit. Patient was eventually sedated and intubated requiring mechanical ventilation. Nose list of his medical problems addressed during this hospitalization. 1. Acute hypoxic respiratory failure requiring intubation and mechanical ventilation on 03/24. This is most likely secondary to underlying pneumonia with possible ARDS. Pulmonary edema ruled out by cardiology with a repeat echocardiogram showing preserved ejection fraction. He is currently in the ICU and ventilator being managed by ICU team. 2. Acute kidney failure, oliguric. Suspected ATN Seen and evaluated by nephrology. Started on dialysis on 03/27. Repeat lab work in the morning. M onitor urine output closely. 3. Left lower lobe pneumonia: There was a concern about possible francisella tularensis infection given history provided by family the patient was hunting coyotes. He was started initially on IV ceftriaxone and oral azithromycin and antibiotic changed to doxycycline and Levaquin on 03/24. Zosyn added by infectious disease. Sputum culture ordered. COVID-19 and influenza screen negative on admission 4. Severe sepsis with septic shock, requiring vasopressors. Managed by ICU team. Blood cultures negative to date 5. Suspected acute diastolic heart failure exacerbation. Echocardiogram on presentation showed a preserved ejection fraction and no significant valvular abnormalities. Repeat limited echocardiogram showed EF of 55%. Patient received multiple doses of IV Lasix. 6. Elevated troponin, troponin was positive on 03/24, most likely secondary to supply demand mismatch given septic shock. Cardiology following and the repeat echocardiogram ordered. 7. Chest pain with pleurisy on presentation: ACS ruled out. EKG on presentation with no acute ischemic changes. Troponin was negative on presentation. CT PE protocol negative for PE. 8. Suspected ileus, patient continued to have a distended abdomen. Abdominal x-ray showed no acute findings. Plan to resume NG tube feeding and monitor residuals closely. 9. Hypomagnesemia and hyponatremia, on presentation now resolved 10. Chronic medical problems: Hyperlipidemia, hypertension, GERD 11. GI and DVT prophylaxis with IV Protonix and subcu Lovenox 12. CODE STATUS patient is full code Yesterday, I spoke to both patient's sister and significant other on the phone. I gave them an update about the patient's current critical condition. They have a lot of questions regarding his medication doses and then settings. I answered all of the questions to satisfaction.
[2020-03-28 11:08] LABS: Glucose,Whole Blood 195 mg/dL (75-99)
--- NOTE | 2020-03-28 11:09 | P.PN ---
Progress Note - Text Progress Note Date: 03/28/20 The patient appears to be more hemodynamically stable. His blood pressures improved. His NG tube put out approximately 4 mL overnight. On exam vital signs are stable. Abdomen is soft and less distended. Tube feeds of been resumed. Patient will continue receive supportive care.
--- NOTE | 2020-03-28 11:39 | P.PN ---
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 This is a 70-year-old white male with history of hypertension and underlying coronary artery disease, patient was admitted yesterday with intermittent episod es of chest pains, pleuritic in nature, associated with dry cough, fever, chills, and diaphoresis for almost one week. Patient was initially seen in the ER on 03/21/2020, and he was discharged home in stable condition. His workup was basically nondiagnostic. And his chest x-ray was normal. The week prior to his presentation, patient shot a coyote, and he had to drag the coyote about 3-4 miles. Apparently he started having chest pain at the time of dragging the coyote, and his pain resolved as he rested. Over the following week, patient has been experiencing diffuse chest discomfort with deep inspiration, had no radiation of the pain, he had mostly intermittent episodes of cough, fever, chills, and that is when he came to the ER. Again patient was admitted on 03/22/2020, CT angiogram of the chest was done, and it was basically normal. There was no evidence of pulmonary embolism, no evidence of infiltrate, minimal left basilar atelectasis was noted. Chest x-ray upon admission was also normal. 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 His temperature upon admission was ranging between 100 and 103. Patient was treated empirically with antibioti cs in the form of Rocephin and Zithromax, however this morning patient was transferred to the ICU mostly because of worsening shortness of breath, worsening chest x-ray, hypotension, patient was placed on BiPAP, however he remained marginal and his overall pulmonary status, and upon my evaluation in the ICU, patient clearly needed to be intubated and placed on mechanical ventilation as he was clearly hypotensive, febrile, and he was also noted to have very marginal O2 saturation on 100% BiPAP. Discussed with the patient the need for intubation mechanical ventilation, he agreed, and the patient was intubated and placed on mechanical ventilation. Patient required also placement on norepinephrine, vasopressin, and his antibiotics coverage was broadened. Cardiology was asked to reevaluate him because of his increased troponin and his increase BNP level. Chest x-ray showed initially evidence of interstitial edema and possible underlying pneumonia. Post intubation, follow-up chest x-ray showed cardiomegaly, possible multifocal bilateral opacities a greater in the mid and lower lungs. Hence we'll broaden the spectrum of his antibiotics coverage, and the patient required to be placed on high FiO2, required high PEEP, and follow-up ABG done showed a pO2 of 71 pCO2 of 39 pH of 7.27 and this was on 100% FiO2, and PEEP of 10. Reevaluated today on 03/25/2020, patient remains in the ICU, intubated and mechanically ventilated. He is now on FiO2 of 80% assist control rate of 26, tidal volume is 450, PEEP at 12, however after reviewing his follow-up ABG this morning 2, I was able to cut down his FiO2 down to 65%, and the PEEP was increased to 14. Patient is on propofol at 40 mcg/kg/m, IV fluid at 75 mL per hour, sodium bicarb drip at 50 ML per hour vasopressin at 0.03 units per minute. Is also on norepinephrine at 0.75 mcg/kg/m, and the Nimbex at 1.5. Patient is also on Dilaudid 0.5 mg every 2 hours around the clock. Patient was started on enteral feeding today. Antibiotics ramon he is on doxycycline, Levaquin, and Zosyn was added by infectious disease on the case. Pro-calcitonin level is on the rise, it is 73.94, this is extremely high level. WBC count is up to 43.6. C-reactive protein is 545 chest x-ray is showing worsening right lower lobe infiltrate. Small left pleural effusion, lines and catheters are in proper positions ABG today showed a pO2 of 88 pCO2 of 42 pH of 7.24, hence the patient will remain on 65% FiO2, PEEP of 14, otherwise remaining vent settings will be unchanged. He is on assist control rate of 26 and tidal volume is 450. Patient was seen by infectious disease on consultation, Zosyn was added empirically in addition to doxycycline and Levaquin. Enteral feeding will be started today on this patient, and this would be addressing his nutritional support. Patient remains on GI and DVT prophylaxis. Reevaluated today on 03/26/2020, patient remains in the ICU, intubated and mechanically ventilated. He is on assist control rate of 26, volume is 450 FiO2 is 60% PEEP is 14, ABG showed a pO2 of 90 pCO2 of 39 pH of 7.26, hence his so dium bicarb drip was increased and his FiO2 was decreased down to 50% however The PEEP at 14. Patient remains on multiple drips including bicarb drip at 75 mL per hour, Nimbex at 1.5 mcg/kg/m, propofol at 50 mcg/kg/m, norepinephrine at 0.6 mcg/kg/m. Patient is not making much urine, his chest x-ray is showing slight improvement in his right lower lobe pneumonia. However obviously the patient remains quite ill, and septic requiring multiple pressors including norepinephrine and vasopressin. Considering the deterioration in his renal status, patient is definitely heading towards hemodialysis, and we'll consult vascular surgery for a dialysis catheter placement. The meantime the patient re alex on Levaquin, doxycycline, Zosyn, cultures so far are nondiagnostic including blood cultures and sputum cultures. Yesterday the patient was also started on Solu-Medrol, he had significant leukocytosis yesterday, improving, and repeat pro-calcitonin level is pending. Patient was given yesterday 80 mg of Lasix, hardly any response. Patient remains on enteral feeding. Slight distention of the abdomen was noted today, but x-rays of the abdomen were nondiagnostic of obstruction. WBC count today is 16.8 hemoglobin is 13. Continues to have significant neutrophilia, electrolytes are normal except bicarb remains low at 15. Liver enzymes/transaminases were noted to be a bit elevated. Likely consistent with shocked liver. White count today is 16.8 compared to 43.6 yesterday. Reevaluated today on 03/27/2020, patient remains in the ICU, intubated and mechanically ventilated. Patient is on the same ventilator settings assist control rate of 26 tidal volume is 450 FiO2 50% and PEEP of 14. Remains on multiple drips including vasopressin at 0.03 units per minute, norepinephrine was increased yesterday to 0.17 mcg/kg/m. Nimbex 1.5 mcg/kg/m. Propofol 40 mcg/kg/m. Bicarb drip 75 ML per hour. Patient remains on enteral feeding, however considering that the patient is developing high residual and some abdominal distention, I did recommend holding feeding and intermittent suction on the nasogastric tube. I also plan to discontinue Nimbex today, and replace it with fentanyl. The patient on the same ventilator settings except increase the flow rate to 70 L/m. I have also recommended surgical evaluation for his abdominal distention. X-rays of the abdomen are nondiagnostic. Patient is not stable enough to go down for CT of the abdomen and pelvis at this point considering he is requiring significant amount of pressors. Patient will be seen by nephrology today, and will likely undergo dialysis. Sodium bicarb was given. Nimbex would be discontinued, and bicarb will be given for his metabolic acidosis. Antibiotics remained the same. Chest x-ray is showing definite improvement, but that is not reflected on his oxygenation much. Cultures including blood cultures, sputum cultures are nondiagnostic so far. His sugars are running high, and I will recommend insulin drip on this patient. WBC count today is 10.2 hemoglobin is 11.3. ABG showed a pO2 of 74 pH of 7.26 pCO2 is 41. WBC count is 10.2 hemoglobin is 11.3. Renal profile is much worse today, BUN is 93 creatinine 7.02. Electrolytes are normal bicarb remains low at 16. Reevaluated today on 03/28/2020, patient remains in the ICU, intubated and mechanically ventilated. Remains on the same ventilator settings, assist control rate of 26 tidal volume is 450 FiO2 50% PEEP of 14. ABG showed a pO2 of 89 pCO2 of 34 pH of 7.41, hence no change was made in the ventilator settings. However I noticed some leak around the endotracheal tube, and recommended respiratory to have more air in the cough, and adjustment of the endotracheal tube placement. Patient is on multiple drips including fentanyl 0.25 mcg/kg/h, norepinephrine is at 0.05 mcg/kg/m. Propofol at 60 mcg/kg/m. Heparin drip, insulin 5 units per hour drip, and bicarb drip at 75 mL per hour. Patient is back on enteral feeding since he responded well to lactulose, and had multiple bowel movements now he has a fecal management system. In place. Patient went into atrial fibrillation around 4:30 AM, however his rate seems to be fairly well controlled, and basically on heparin only. Underwent SLED yesterday, and was tolerated, 200 mL oFF. Chest x-ray continues to show bilateral interstitial infiltrates, consistent with ARDS. Although the possibility of interstitial edema/fluid overload secondary to renal failure and oliguria. Is not entirely ruled out. Microbiology from sputum and blood remains nondiagnostic. titer for Francisella is pending. CBC is normal WBC count is 7.6 hemoglobin is 10.8. PTT is 53.3. Liver enzymes remain slightly elevated. Repeat pro-calcitonin is pending. Urine Legionella antigen is negative Objective - Vital Signs Vital signs: Vital Signs Temp 98.6 F 03/28/20 04:00 Pulse 71 03/28/20 11:00 Resp 28 H 03/28/20 11:00 BP 105/55 03/28/20 06:00 Pulse Ox 97 03/28/20 11:00 Intake & Output 03/27/20 03/28/20 03/28/20 18:59 06:59 18:59 Intake Total 2771.607 1222.560 767.837 Output Total 855 5 0 Balance 3037.690 8326.560 767.837 Weight 113.2 kg Intake: IV 2197 972 493 0.9 NACL 50 0.9 NACL bolus 1000 Dextrose 5% in Water 1, 900 900 375 000 ml @ 75 mls/hr IV . [id number] [facility] with Sodium Bicarb (1 Meq/ml) 150 ml Rx#:[id number] Doxycycline 100 mg In 100 100 Sodium Chloride 0.9% 100 ml @ 100 mls/hr IVPB Q12HR [facility] Rx#:[id number] Piperacillin-Tazobactam 3 75 .375 gm In Sodium Chloride 0.9% 100 ml @ 25 mls/hr IVPB Q8HR [facility] Rx# :[id number] Pressure bag 72 72 18 Intake, IV Titration 463.607 250.560 264.837 Amount Cisatracurium 200 mg In 60.154 Sodium Chloride 0.9% 180 ml @ 1 MCG/KG/MIN 5.715 mls/hr IV .Q24H [facility] Rx#: [id number] Insulin Regular 100 unit 26.496 38.566 22.372 In Sodium Chloride 0.9% 100 ml @ Per Protocol IV .Q0M [facility] Rx#:[id number] Levofloxacin 250Mg-D5w 50 Pmx 250 mg In Dextrose/ Water 1 50ml.bag @ 50 mls /hr IVPB Q24H [facility] Rx#: [id number] Norepinephrine 32 mg In 59.318 11.435 1.608 Sodium Chloride 0.9% 218 ml @ 0.05 MCG/KG/MIN 2. 233 mls/hr IV .Q24H [facility] Rx#:[id number] Piperacillin-Tazobactam 3 100 .375 gm In Sodium Chloride 0.9% 100 ml @ 25 mls/hr IVPB Q12HR [facility] Rx #:[id number] fentaNYL (PF) 1,000 mcg 66.205 In Sodium Chloride 0.9% 80 ml @ Per Protocol IV . Q0M [facility] Rx#:[id number] propofoL 500 mg In Empty 267.639 200.559 74.652 Bag 1 bag @ Titrate IV . Q0M [facility] Rx#:[id number] Tube Feeding 81 10 Other 30 Output: Gastric Drainage 600 Urine 55 5 0 Hemodialysis 200 Other: Voiding Method Indwelling Catheter Indwelling Catheter ABP, PAP, CO, CI - Last Documented Arterial Blood Pressure 116/52 - Exam Physical Exam: Revealed a 70-year-old white male, intubated, sedated, off Nimbex, presently on mechanical ventilation. Head: Atraumatic, normocephalic. Endotracheal tube and orogastric tube are intact however because of some air leak around the endotracheal tube, the endotracheal tube was readjusted. HEENT:[Neck is supple.] [No neck masses.] [No thyromegaly.] [No JVD.] Right IJ triple-lumen catheter is noted. Chest: [Symmetrical expansion, crackles at the bases him a specially in the right base. Cardiac Exam: [Normal S1 and S2, no S3 gallop, no murmur.] Abdomen: [Soft, less distended, positive bowel sounds. nontender, no megaly, no rebound, no guarding Extremities: [No clubbing, no edema, no cyanosis.] Good pulses bilaterally. Neurological Exam: Could not be assessed, patient is sedated , maintain on propo fol, off fentanyl and of Nimbex. Psychiatric: Could not be assessed. Skin: No rashes. Musculoskeletal: No deformities noted - Labs CBC & Chem 7: 03/28/20 03:25 03/28/20 03:25 Labs: Abnormal Lab Results - Last 24 Hours (Table) 03/27/20 03/27/20 03/27/20 Range/Units 11:34 12:46 13:57 RBC (4.30-5.90) m/uL Hgb (13.0-17.5) gm/dL Hct (39.0-53.0) % Lymphocytes # (1.0-4.8) k/uL PT (9.0-12.0) sec INR (<1.2) APTT (22.0-30.0) sec ABG pCO2 (35-45) mmHg Sodium (137-145) mmol/L Carbon Dioxide (22-30) mmol/L BUN (9-20) mg/dL Creatinine (0.66-1.25) mg/dL Glucose (74-99) mg/dL POC Glucose (mg/dL) 198 H 168 H 151 H (75-99) mg/dL Calcium (8.4-10.2) mg/dL Total Bilirubin (0.2-1.3) mg/dL AST (17-59) U/L ALT (4-49) U/L Alkaline Phosphatase (38-126) U/L C-Reactive Protein (<10.0) mg/L Total Protein (6.3-8.2) g/dL Albumin (3.5-5.0) g/dL 03/27/20 03/27/20 03/27/20 Range/Units 15:01 16:27 18:59 RBC (4.30-5.90) m/uL Hgb (13.0-17.5) gm/dL Hct (39.0-53.0) % Lymphocytes # (1.0-4.8) k/uL PT (9.0-12.0) sec INR (<1.2) APTT (22.0-30.0) sec ABG pCO2 (35-45) mmHg Sodium (137-145) mmol/L Carbon Dioxide (22-30) mmol/L BUN (9-20) mg/dL Creatinine (0.66-1.25) mg/dL Glucose (74-99) mg/dL POC Glucose (mg/dL) 158 H 142 H 159 H (75-99) mg/dL Calcium (8.4-10.2) mg/dL Total Bilirubin (0.2-1.3) mg/dL AST (17-59) U/L ALT (4-49) U/L Alkaline Phosphatase (38-126) U/L C-Reactive Protein (<10.0) mg/L Total Protein (6.3-8.2) g/dL Albumin (3.5-5.0) g/dL 03/27/20 03/27/20 03/27/20 Range/Units 19:39 21:06 23:06 RBC (4.30-5.90) m/uL Hgb (13.0-17.5) gm/dL Hct (39.0-53.0) % Lymphocytes # (1.0-4.8) k/uL PT (9.0-12.0) sec INR (<1.2) APTT (22.0-30.0) sec ABG pCO2 (35-45) mmHg Sodium (137-145) mmol/L Carbon Dioxide (22-30) mmol/L BUN (9-20) mg/dL Creatinine (0.66-1.25) mg/dL Glucose (74-99) mg/dL POC Glucose (mg/dL) 145 H 151 H 268 H (75-99) mg/dL Calcium (8.4-10.2) mg/dL Total Bilirubin (0.2-1.3) mg/dL AST (17-59) U/L ALT (4-49) U/L Alkaline Phosphatase (38-126) U/L C-Reactive Protein (<10.0) mg/L Total Protein (6.3-8.2) g/dL Albumin (3.5-5.0) g/dL 03/28/20 03/28/20 03/28/20 Range/Units 00:21 02:33 03:22 RBC (4.30-5.90) m/uL Hgb (13.0-17.5) gm/dL Hct (39.0-53.0) % Lymphocytes # (1.0-4.8) k/uL PT (9.0-12.0) sec INR (<1.2) APTT (22.0-30.0) sec ABG pCO2 (35-45) mmHg Sodium (137-145) mmol/L Carbon Dioxide (22-30) mmol/L BUN (9-20) mg/dL Creatinine (0.66-1.25) mg/dL Glucose (74-99) mg/dL POC Glucose (mg/dL) 137 H 153 H 156 H (75-99) mg/dL Calcium (8.4-10.2) mg/dL Total Bilirubin (0.2-1.3) mg/dL AST (17-59) U/L ALT (4-49) U/L Alkaline Phosphatase (38-126) U/L C-Reactive Protein (<10.0) mg/L Total Protein (6.3-8.2) g/dL Albumin (3.5-5.0) g/dL 03/28/20 03/28/20 03/28/20 Range/Units 03:25 03:25 03:25 RBC 3.46 L (4.30-5.90) m/uL Hgb 10.8 L (13.0-17.5) gm/dL Hct 32.4 L (39.0-53.0) % Lymphocytes # 0.2 L (1.0-4.8) k/uL PT (9.0-12.0) sec INR (<1.2) APTT (22.0-30.0) sec ABG pCO2 (35-45) mmHg Sodium 136 L (137-145) mmol/L Carbon Dioxide 18 L (22-30) mmol/L BUN 90 H (9-20) mg/dL Creatinine 6.27 H (0.66-1.25) mg/dL Glucose 157 H (74-99) mg/dL POC Glucose (mg/dL) (75-99) mg/dL Calcium 7.1 L (8.4-10.2) mg/dL Total Bilirubin 1.6 H (0.2-1.3) mg/dL AST 143 H (17-59) U/L ALT 133 H (4-49) U/L Alkaline Phosphatase 200 H (38-126) U/L C-Reactive Protein 165.5 H (<10.0) mg/L Total Protein 4.7 L (6.3-8.2) g/dL Albumin 2.3 L (3.5-5.0) g/dL 03/28/20 03/28/20 03/28/20 Range/Units 04:34 04:35 05:00 RBC (4.30-5.90) m/uL Hgb (13.0-17.5) gm/dL Hct (39.0-53.0) % Lymphocytes # (1.0-4.8) k/uL PT 12.8 H (9.0-12.0) sec INR 1.2 H (<1.2) APTT (22.0-30.0) sec ABG pCO2 34 L (35-45) mmHg Sodium (137-145) mmol/L Carbon Dioxide (22-30) mmol/L BUN (9-20) mg/dL Creatinine (0.66-1.25) mg/dL Glucose (74-99) mg/dL POC Glucose (mg/dL) 159 H (75-99) mg/dL Calcium (8.4-10.2) mg/dL Total Bilirubin (0.2-1.3) mg/dL AST (17-59) U/L ALT (4-49) U/L Alkaline Phosphatase (38-126) U/L C-Reactive Protein (<10.0) mg/L Total Protein (6.3-8.2) g/dL Albumin (3.5-5.0) g/dL 03/28/20 03/28/20 03/28/20 Range/Units 05:44 07:07 08:24 RBC (4.30-5.90) m/uL Hgb (13.0-17.5) gm/dL Hct (39.0-53.0) % Lymphocytes # (1.0-4.8) k/uL PT (9.0-12.0) sec INR (<1.2) APTT (22.0-30.0) sec ABG pCO2 (35-45) mmHg Sodium (137-145) mmol/L Carbon Dioxide (22-30) mmol/L BUN (9-20) mg/dL Creatinine (0.66-1.25) mg/dL Glucose (74-99) mg/dL POC Glucose (mg/dL) 164 H 169 H 199 H (75-99) mg/dL Calcium (8.4-10.2) mg/dL Total Bilirubin (0.2-1.3) mg/dL AST (17-59) U/L ALT (4-49) U/L Alkaline Phosphatase (38-126) U/L C-Reactive Protein (<10.0) mg/L Total Protein (6.3-8.2) g/dL Albumin (3.5-5.0) g/dL 03/28/20 03/28/20 03/28/20 Range/Units 09:45 10:22 11:06 RBC (4.30-5.90) m/uL Hgb (13.0-17.5) gm/dL Hct (39.0-53.0) % Lymphocytes # (1.0-4.8) k/uL PT (9.0-12.0) sec INR (<1.2) APTT 53.3 H (22.0-30.0) sec ABG pCO2 (35-45) mmHg Sodium (137-145) mmol/L Carbon Dioxide (22-30) mmol/L BUN (9-20) mg/dL Creatinine (0.66-1.25) mg/dL Glucose (74-99) mg/dL POC Glucose (mg/dL) 174 H 195 H (75-99) mg/dL Calcium (8.4-10.2) mg/dL Total Bilirubin (0.2-1.3) mg/dL AST (17-59) U/L ALT (4-49) U/L Alkaline Phosphatase (38-126) U/L C-Reactive Protein (<10.0) mg/L Total Protein (6.3-8.2) g/dL Albumin (3.5-5.0) g/dL Microbiology - Last 24 Hours (Table) 03/24/20 09:08 Blood Culture - Preliminary Blood No Growth after 96 hours 03/22/20 13:51 Blood Culture - Preliminary Blood No Growth after 120 hours 03/24/20 11:19 Blood Culture - Preliminary Blood No Growth after 72 hours Assessment and Plan Assessment: Impression: Acute hypoxic respiratory failure requiring intubation and mechanical ventilation, on 03/24/2020. 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 considering his most recent exposure to coyote. Titers for Francisella are pending. Sputum cultures and blood cultures are nondiagnostic so far. ARDS secondary to pneumonia and sepsis. Acute septic shock requiring pressors in the form of norepinephrine of vasopressin yesterday. Acute kidney injury, suspect acute tubular necrosis from hypotension and sepsis/septic shock. Based on his worsening renal profile, patient is having most likely towards hemodialysis Acute diastolic congestive heart failure is also strongly suspected considering the dramatic change on chest x-ray before the patient was intubated. Echocardiogram showed no evidence of LV dysfunction and showed no evidence of pericardial effusion. History of underlying coronary artery disease. History of hypertension. Multiorgan system failure secondary to sepsis and septic shock. Ex-smoker. New-onset atrial fibrillation, rate controlled, requiring mostly heparin. Acute ileus, resolved. Recommendation: Continue ventilatory support. FiO2 down to 50% PEEP remains at 14, could consider dropping PEEP down to 12 in the next 24 hours depending on his next ABG. Continue antibiotics, patient is on doxycycline, Levaquin, and Zosyn. Cultures so far nondiagnostic. Titers for Francisella are pending. Resume enteral feeding since the patient had multiple bowel movements since yesterday. And lactulose was discontinued. Continue pressors and titrate accordingly, patient is off vasopressin remains on small dose of norepinephrine compared to yesterday. Continue sodium bicarb drip.. Continue insulin drip. Continue GI and DVT prophylaxis. Continue dialysis. Continue to monitor renal profile and liver profile daily. Heparin for new onset atrial fibrillation. Overall prognosis remains extremely poor and guarded. Patient is obviously developing a multiorgan system failure, mortality is going to be relatively high. Prognosis is poor. Remains critically ill. Critical care time is 35 minutes. Time with Patient: Greater than 30
[2020-03-28] MEDS: INSULIN REGULAR 100 UNIT in SODIUM CHLORIDE 0.9% 100 ML IV SCH (11:44)
[2020-03-28] MEDS: methylPREDNISolone SOD SUCCI 40 MG/ML 1 ML VIAL IV SCH ×3 (11:45→23:55)
[2020-03-28] MEDS: LEVOFLOXACIN 250MG-D5W PMX 250 MG in DEXTROSE/WATER 1 50ML.BAG IVPB SCH (11:45)
[2020-03-28] MEDS: fentaNYL (PF) 1,000 MCG in SODIUM CHLORIDE 0.9% 80 ML IV SCH (11:46)
[2020-03-28 11:58] LABS: Glucose,Whole Blood 167 mg/dL (75-99)
[2020-03-28 13:06] LABS: Glucose,Whole Blood 167 mg/dL (75-99)
[2020-03-28 14:48] LABS: Glucose,Whole Blood 138 mg/dL (75-99)
[2020-03-28 16:04] LABS: Glucose,Whole Blood 166 mg/dL (75-99)
[2020-03-28 17:14] LABS: Glucose,Whole Blood 170 mg/dL (75-99)
[2020-03-28 18:15] LABS: Glucose,Whole Blood 159 mg/dL (75-99)
[2020-03-28 20:17] LABS: Glucose,Whole Blood 177 mg/dL (75-99)
[2020-03-28] MEDS: SODIUM CHLORIDE 0.9% 1,000 ML IV SCH (20:51)
[2020-03-28 21:16] LABS: Glucose,Whole Blood 185 mg/dL (75-99)
[2020-03-28 23:05] LABS: Glucose,Whole Blood 206 mg/dL (75-99)
--- NOTE | 2020-03-28 23:06 | PN ---
PROGRESS NOTE DATE OF SERVICE: 03/28/2020 REASON FOR FOLLOWUP: Pneumonia. INTERVAL HISTORY: Patient is currently afebrile. The patient remains to be intubated on the vent. He is hemodynamically stable. FiO2 is currently 50%. No significant purulent secretions in the ET. He did have developed diarrhea for system has been placed. PHYSICAL EXAMINATION: Blood pressure 113/50 with a pulse of 72, temperature 98. He is 95% on 50% FiO2. General description is an elderly male intubated on the vent. Respiratory system: Unlabored breathing with decreased intensity of breath sounds. No wheeze. HEART: S1, S2. Regular rate and rhythm. Abdomen soft, no tenderness. LABS: Hemoglobin is 10.8, white count 7.6, BUN of 19, creatinine 6.27. of 59. Sputum culture so far negative. DIAGNOSTIC IMPRESSION AND PLAN: Patient with acute respiratory failure which is multifactorial with a component of pneumonia with concern for possible versus community acquired or aspiration. Patient covered with Leif Christopher doxy to continue while waiting for condition to stabilize and continue supportive care. MMODL / IJN: [id number] /
[2020-03-28 23:53] LABS: Glucose,Whole Blood 191 mg/dL (75-99)
[2020-03-29 01:06] LABS: Glucose,Whole Blood 177 mg/dL (75-99)
[2020-03-29 01:58] LABS: Glucose,Whole Blood 174 mg/dL (75-99)
[2020-03-29] MEDS: INSULIN REGULAR 100 UNIT in SODIUM CHLORIDE 0.9% 100 ML IV SCH (03:34)
[2020-03-29 04:08] LABS: Glucose,Whole Blood 184 mg/dL (75-99)
[2020-03-29 04:15] LABS: Basophils # (A) 0.1 k/uL (0-0.2); Basophils % (A) 1 %; Eosinophils % (A) 0 %; HCT 31.1 % (39.0-53.0); HGB 10.9 gm/dL (13.0-17.5); Lymphocytes # (A) 0.1 k/uL (1.0-4.8); Lymphocytes % (A) 2 %; MCH 32.6 pg (25.0-35.0); MCHC 35.1 g/dL (31.0-37.0); MCV 93.1 fL (80.0-100.0); Mean Platelet Volume 7.8; Monocytes # (A) 0.3 k/uL (0-1.0); Monocytes % (A) 4 %; Neutrophils # (A) 7.3 k/uL (1.3-7.7); Neutrophils % (A) 93 %; Platelet Count 226 k/uL (150-450); RBC 3.34 m/uL (4.30-5.90); RDW 14.2 % (11.5-15.5); WBC 7.9 k/uL (3.8-10.6)
[2020-03-29] MEDS: HEPARIN SOD,PORK IN 0.45% NACL 25,000 UNIT in 0.45% NACL 1 250ML.BAG IV SCH (04:21)
[2020-03-29] MEDS: fentaNYL (PF) 1,000 MCG in SODIUM CHLORIDE 0.9% 80 ML IV SCH (04:21)
[2020-03-29 05:10] LABS: ABG Base Excess -1.6 mmol/L; ABG HCO3 23 mmol/L (21-25); ABG Oxygen Saturation 96.1 % (94-97); ABG PCO2 39 mmHg (35-45); ABG PH 7.39 (7.35-7.45); ABG PO2 112 mmHg (83-108); ABG TCO2 25 mmol/L (19-24); Allen Test Performed? Yes
[2020-03-29 05:15] LABS: Glucose,Whole Blood 172 mg/dL (75-99)
[2020-03-29 06:07] LABS: Glucose,Whole Blood 166 mg/dL (75-99)
[2020-03-29] MEDS: methylPREDNISolone SOD SUCCI 40 MG/ML 1 ML VIAL IV SCH ×4 (06:30→22:52)
[2020-03-29 07:09] LABS: Glucose,Whole Blood 178 mg/dL (75-99)
[2020-03-29] MEDS: IPRATROPIUM-ALBUTEROL 3 ML NEB INHALATION SCH ×4 (07:34→19:16)
[2020-03-29] MEDS: INSULIN DETEMIR (LEVEMIR) 100 UNIT/ML SYR SQ SCH (07:35)
--- NOTE | 2020-03-29 07:48 | P.PN ---
Subjective Patient is seen in follow-up for acute kidney injury, currently hemodialysis dependent. Remains on Levophed. Maintained on bicarb drip as well. Tube feedings are currently held. Intubated. 50% FiO2 support. Vital signs are stable. On vasopressor support. General: Intubated. OG tube noted. HEENT: No JVD. LUNGS: Breath sounds decreased. HEART: Rate and Rhythm are regular. ABDOMEN: Soft. No gross distention. EXTREMITITES: 1+ edema. Scrotal edema noted. Objective - Vital Signs Vital signs: Vital Signs Temp 98.9 F 03/29/20 04:00 Pulse 68 03/29/20 07:35 Resp 26 H 03/29/20 07:00 BP 106/54 03/29/20 07:00 Pulse Ox 96 03/29/20 07:00 Intake & Output 03/28/20 03/29/20 03/29/20 18:59 06:59 18:59 Intake Total 2904.183 0293.656 146.62 Output Total 1005 270 5 Balance 967.494 7331.656 141.62 Weight 116.6 kg Intake: IV 1117 1311 101 0.9 NACL 220 20 Dextrose 5% in Water 1, 975 825 75 000 ml @ 75 mls/hr IV . [id number] [facility] with Sodium Bicarb (1 Meq/ml) 150 ml Rx#:[id number] Doxycycline 100 mg In 100 100 Sodium Chloride 0.9% 100 ml @ 100 mls/hr IVPB Q12HR [facility] Rx#:[id number] Piperacillin-Tazobactam 3 100 .375 gm In Sodium Chloride 0.9% 100 ml @ 25 mls/hr IVPB Q12HR [facility] Rx #:[id number] Pressure bag 42 66 6 Intake, IV Titration 537.614 673.656 45.62 Amount Heparin Sod,Pork in 0.45% 212.271 NaCl 25,000 unit In 0.45 % NaCl 1 250ml.bag @ 8 UNITS/KG/HR 8.944 mls/hr IV .Q24H [facility] Rx#: [id number] Insulin Regular 100 unit 46.360 36.461 In Sodium Chloride 0.9% 100 ml @ Per Protocol IV .Q0M [facility] Rx#:[id number] Norepinephrine 32 mg In 22.819 12.920 Sodium Chloride 0.9% 218 ml @ 0.05 MCG/KG/MIN 2. 233 mls/hr IV .Q24H [facility] Rx#:[id number] Piperacillin-Tazobactam 3 100 .375 gm In Sodium Chloride 0.9% 100 ml @ 25 mls/hr IVPB Q12HR [facility] Rx #:[id number] fentaNYL (PF) 1,000 mcg 93.783 61.155 In Sodium Chloride 0.9% 80 ml @ Per Protocol IV . Q0M [facility] Rx#:[id number] propofoL 500 mg In Empty 274.652 350.849 45.62 Bag 1 bag @ Titrate IV . Q0M [facility] Rx#:[id number] Tube Feeding 100 216 Other 60 90 Output: Gastric Drainage 50 Urine 5 70 5 Stool 150 Hemodialysis 1000 Other: Voiding Method Indwelling Catheter Indwelling Catheter ABP, PAP, CO, CI - Last Documented Arterial Blood Pressure 126/51 - Labs CBC & Chem 7: 03/29/20 04:05 03/28/20 03:25 Labs: Abnormal Lab Results - Last 24 Hours (Table) 03/28/20 03/28/20 03/28/20 Range/Units 03:25 03:25 03:25 RBC (4.30-5.90) m/uL Hgb (13.0-17.5) gm/dL Hct (39.0-53.0) % Lymphocytes # (1.0-4.8) k/uL APTT (22.0-30.0) sec ABG pO2 (83-108) mmHg ABG Total CO2 (19-24) mmol/L Sodium 136 L (137-145) mmol/L Carbon Dioxide 18 L (22-30) mmol/L BUN 90 H (9-20) mg/dL Creatinine 6.27 H (0.66-1.25) mg/dL Glucose 157 H (74-99) mg/dL POC Glucose (mg/dL) (75-99) mg/dL Calcium 7.1 L (8.4-10.2) mg/dL Total Bilirubin 1.6 H (0.2-1.3) mg/dL AST 143 H (17-59) U/L ALT 133 H (4-49) U/L Alkaline Phosphatase 200 H (38-126) U/L C-Reactive Protein 165.5 H (<10.0) mg/L Total Protein 4.7 L (6.3-8.2) g/dL Albumin 2.3 L (3.5-5.0) g/dL Procalcitonin 59.06 H (0.02-0.09) ng/mL 03/28/20 03/28/20 03/28/20 Range/Units 08:24 09:45 10:22 RBC (4.30-5.90) m/uL Hgb (13.0-17.5) gm/dL Hct (39.0-53.0) % Lymphocytes # (1.0-4.8) k/uL APTT 53.3 H (22.0-30.0) sec ABG pO2 (83-108) mmHg ABG Total CO2 (19-24) mmol/L Sodium (137-145) mmol/L Carbon Dioxide (22-30) mmol/L BUN (9-20) mg/dL Creatinine (0.66-1.25) mg/dL Glucose (74-99) mg/dL POC Glucose (mg/dL) 199 H 174 H (75-99) mg/dL Calcium (8.4-10.2) mg/dL Total Bilirubin (0.2-1.3) mg/dL AST (17-59) U/L ALT (4-49) U/L Alkaline Phosphatase (38-126) U/L C-Reactive Protein (<10.0) mg/L Total Protein (6.3-8.2) g/dL Albumin (3.5-5.0) g/dL Procalcitonin (0.02-0.09) ng/mL 03/28/20 03/28/20 03/28/20 Range/Units 11:06 11:56 13:04 RBC (4.30-5.90) m/uL Hgb (13.0-17.5) gm/dL Hct (39.0-53.0) % Lymphocytes # (1.0-4.8) k/uL APTT (22.0-30.0) sec ABG pO2 (83-108) mmHg ABG Total CO2 (19-24) mmol/L Sodium (137-145) mmol/L Carbon Dioxide (22-30) mmol/L BUN (9-20) mg/dL Creatinine (0.66-1.25) mg/dL Glucose (74-99) mg/dL POC Glucose (mg/dL) 195 H 167 H 167 H (75-99) mg/dL Calcium (8.4-10.2) mg/dL Total Bilirubin (0.2-1.3) mg/dL AST (17-59) U/L ALT (4-49) U/L Alkaline Phosphatase (38-126) U/L C-Reactive Protein (<10.0) mg/L Total Protein (6.3-8.2) g/dL Albumin (3.5-5.0) g/dL Procalcitonin (0.02-0.09) ng/mL 03/28/20 03/28/20 03/28/20 Range/Units 14:46 15:52 17:12 RBC (4.30-5.90) m/uL Hgb (13.0-17.5) gm/dL Hct (39.0-53.0) % Lymphocytes # (1.0-4.8) k/uL APTT (22.0-30.0) sec ABG pO2 (83-108) mmHg ABG Total CO2 (19-24) mmol/L Sodium (137-145) mmol/L Carbon Dioxide (22-30) mmol/L BUN (9-20) mg/dL Creatinine (0.66-1.25) mg/dL Glucose (74-99) mg/dL POC Glucose (mg/dL) 138 H 166 H 170 H (75-99) mg/dL Calcium (8.4-10.2) mg/dL Total Bilirubin (0.2-1.3) mg/dL AST (17-59) U/L ALT (4-49) U/L Alkaline Phosphatase (38-126) U/L C-Reactive Protein (<10.0) mg/L Total Protein (6.3-8.2) g/dL Albumin (3.5-5.0) g/dL Procalcitonin (0.02-0.09) ng/mL 03/28/20 03/28/20 03/28/20 Range/Units 18:14 20:15 21:14 RBC (4.30-5.90) m/uL Hgb (13.0-17.5) gm/dL Hct (39.0-53.0) % Lymphocytes # (1.0-4.8) k/uL APTT (22.0-30.0) sec ABG pO2 (83-108) mmHg ABG Total CO2 (19-24) mmol/L Sodium (137-145) mmol/L Carbon Dioxide (22-30) mmol/L BUN (9-20) mg/dL Creatinine (0.66-1.25) mg/dL Glucose (74-99) mg/dL POC Glucose (mg/dL) 159 H 177 H 185 H (75-99) mg/dL Calcium (8.4-10.2) mg/dL Total Bilirubin (0.2-1.3) mg/dL AST (17-59) U/L ALT (4-49) U/L Alkaline Phosphatase (38-126) U/L C-Reactive Protein (<10.0) mg/L Total Protein (6.3-8.2) g/dL Albumin (3.5-5.0) g/dL Procalcitonin (0.02-0.09) ng/mL 03/28/20 03/28/20 03/29/20 Range/Units 23:03 23:52 01:04 RBC (4.30-5.90) m/uL Hgb (13.0-17.5) gm/dL Hct (39.0-53.0) % Lymphocytes # (1.0-4.8) k/uL APTT (22.0-30.0) sec ABG pO2 (83-108) mmHg ABG Total CO2 (19-24) mmol/L Sodium (137-145) mmol/L Carbon Dioxide (22-30) mmol/L BUN (9-20) mg/dL Creatinine (0.66-1.25) mg/dL Glucose (74-99) mg/dL POC Glucose (mg/dL) 206 H 191 H 177 H (75-99) mg/dL Calcium (8.4-10.2) mg/dL Total Bilirubin (0.2-1.3) mg/dL AST (17-59) U/L ALT (4-49) U/L Alkaline Phosphatase (38-126) U/L C-Reactive Protein (<10.0) mg/L Total Protein (6.3-8.2) g/dL Albumin (3.5-5.0) g/dL Procalcitonin (0.02-0.09) ng/mL 03/29/20 03/29/20 03/29/20 Range/Units 01:56 04:05 04:06 RBC 3.34 L (4.30-5.90) m/uL Hgb 10.9 L (13.0-17.5) gm/dL Hct 31.1 L (39.0-53.0) % Lymphocytes # 0.1 L (1.0-4.8) k/uL APTT (22.0-30.0) sec ABG pO2 (83-108) mmHg ABG Total CO2 (19-24) mmol/L Sodium (137-145) mmol/L Carbon Dioxide (22-30) mmol/L BUN (9-20) mg/dL Creatinine (0.66-1.25) mg/dL Glucose (74-99) mg/dL POC Glucose (mg/dL) 174 H 184 H (75-99) mg/dL Calcium (8.4-10.2) mg/dL Total Bilirubin (0.2-1.3) mg/dL AST (17-59) U/L ALT (4-49) U/L Alkaline Phosphatase (38-126) U/L C-Reactive Protein (<10.0) mg/L Total Protein (6.3-8.2) g/dL Albumin (3.5-5.0) g/dL Procalcitonin (0.02-0.09) ng/mL 03/29/20 03/29/20 03/29/20 Range/Units 05:04 05:14 06:04 RBC (4.30-5.90) m/uL Hgb (13.0-17.5) gm/dL Hct (39.0-53.0) % Lymphocytes # (1.0-4.8) k/uL APTT (22.0-30.0) sec ABG pO2 112 H (83-108) mmHg ABG Total CO2 25 H (19-24) mmol/L Sodium (137-145) mmol/L Carbon Dioxide (22-30) mmol/L BUN (9-20) mg/dL Creatinine (0.66-1.25) mg/dL Glucose (74-99) mg/dL POC Glucose (mg/dL) 172 H 166 H (75-99) mg/dL Calcium (8.4-10.2) mg/dL Total Bilirubin (0.2-1.3) mg/dL AST (17-59) U/L ALT (4-49) U/L Alkaline Phosphatase (38-126) U/L C-Reactive Protein (<10.0) mg/L Total Protein (6.3-8.2) g/dL Albumin (3.5-5.0) g/dL Procalcitonin (0.02-0.09) ng/mL 03/29/20 Range/Units 07:07 RBC (4.30-5.90) m/uL Hgb (13.0-17.5) gm/dL Hct (39.0-53.0) % Lymphocytes # (1.0-4.8) k/uL APTT (22.0-30.0) sec ABG pO2 (83-108) mmHg ABG Total CO2 (19-24) mmol/L Sodium (137-145) mmol/L Carbon Dioxide (22-30) mmol/L BUN (9-20) mg/dL Creatinine (0.66-1.25) mg/dL Glucose (74-99) mg/dL POC Glucose (mg/dL) 178 H (75-99) mg/dL Calcium (8.4-10.2) mg/dL Total Bilirubin (0.2-1.3) mg/dL AST (17-59) U/L ALT (4-49) U/L Alkaline Phosphatase (38-126) U/L C-Reactive Protein (<10.0) mg/L Total Protein (6.3-8.2) g/dL Albumin (3.5-5.0) g/dL Procalcitonin (0.02-0.09) ng/mL Microbiology - Last 24 Hours (Table) 03/22/20 13:51 Blood Culture - Final Blood No Growth after 144 hours 03/24/20 11:19 Blood Culture - Preliminary Blood No Growth after 96 hours 03/24/20 09:08 Blood Culture - Preliminary Blood No Growth after 96 hours Assessment and Plan Plan: Assessment: 1. Acute kidney injury secondary to ATN secondary to septic shock. Currently hemodialysis dependent. Oliguric. 2. Septic shock most likely secondary to pneumonia maintained on antibiotics. 3. Volume overload. 4. Metabolic acidosis secondary to acute kidney injury. Improved postdialysis. Plan: Hemodialysis today with ultrafiltration as tolerated. Wean FiO2. Wean vasopressors. Check phosphorus level. Stop bicarb drip. Start normal saline at 50 mL an hour for maintenance fluids. Continue to monitor for renal recovery. Continue to assess daily for need for renal replacement therapy.
--- NOTE | 2020-03-29 08:06 | XR ---
EXAMINATION TYPE: XR chest 1V portable DATE OF EXAM: 03/29/2020 CLINICAL HISTORY: Difficulty breathing progress study. TECHNIQUE: Single AP portable upright view of the chest is obtained. COMPARISON: Chest x-ray from one day earlier and older studies. FINDINGS: Stable right-sided PICC line . Stable endotracheal tube, orogastric tube, and right internal jugular central venous catheter. Stable cardiomegaly. Persistent bilateral opacities in the lower lungs are redemonstrated. Old fractu re deformity right clavicle redemonstrated. IMPRESSION: Continued cardiomegaly with bilateral lower lung multifocal acute infiltrates and/or atel ectasis and small bilateral pleural effusions and bilateral central vascular congestion. No significa nt interval change from one day earlier.
[2020-03-29 08:26] LABS: Albumin 2.5 g/dL (3.5-5.0); Calcium 7.5 mg/dL (8.4-10.2); Potassium 5.1 mmol/L (3.5-5.1); Total Bilirubin 1.3 mg/dL (0.2-1.3); Total Protein 5.3 g/dL (6.3-8.2)
[2020-03-29] MEDS: PANTOPRAZOLE 40 MG/10 ML VIAL IVP SCH ×2 (08:35→19:56)
[2020-03-29] MEDS: DOXYCYCLINE 100 MG in SODIUM CHLORIDE 0.9% 100 ML IVPB SCH ×2 (08:35→20:07)
[2020-03-29] MEDS: PIPERACILLIN-TAZOBACTAM 3.375 GM in SODIUM CHLORIDE 0.9% 100 ML IVPB SCH ×2 (09:16→19:57)
[2020-03-29 09:17] LABS: Glucose,Whole Blood 171 mg/dL (75-99)
[2020-03-29] MEDS: SODIUM CHLORIDE 0.9% 1,000 ML IV SCH ×2 (09:21→19:51)
[2020-03-29] MEDS: ASPIRIN 81 MG PO SCH (09:25)
[2020-03-29] MEDS: ATORVASTATIN 40 MG TAB PO SCH (09:25)
[2020-03-29] MEDS: CHLORHEXIDINE GLUCONATE 15 ML CUP MUCOUS MEM SCH ×2 (09:25→19:56)
--- NOTE | 2020-03-29 10:24 | P.PN ---
Subjective Progress Note Date: 03/29/20 Principal diagnosis: Acute sepsis, septic shock, and pneumonia This is a 70-year-old white male with history of hypertension and underlying coronary artery disease, patient was admitted yesterday with intermittent episodes of chest pains, pleuritic in nature, associated with dry cough, fever, chills, and diaphoresis for almost one week. Patient was initially seen in the ER on 03/21/2020, and he was discharged home in stable condition. His workup was basically nondiagnostic. And his chest x-ray was normal. The week prior to his presentation, patient shot a coyote, and he had to drag the coyote about 3-4 miles. Apparently he started having chest pain at the time of dragging the coyote, and his pain resolved as he rested. Over the following week, patient has been experiencing diffuse chest discomfort with deep inspiration, had no radiation of the pain, he had mostly intermittent episodes of cough, fever, chills, and that is when he came to the ER. Again patient was admitted on 03/22/2020, CT angiogram of the chest was done, and it was basically normal. There was no evidence of pulmonary embolism, no evidence of infiltrate, minimal left basilar atelectasis was noted. Chest x-ray upon admission was also normal. Patient was seen by cardiology on consultation on 03/22/2020, felt that the pain was atypical, pleuritic in nature, however there was a concern based on the consultation about his leukocytosis with fever and the transplant coordinator was concerned about underlying infectious process. His temperature upon admission was ranging between 100 and 103. Patient was treated empirically with antibiotics in the form of Rocephin and Zithromax, however this morning patient was transferred to the ICU mostly because of worsening shortness of breath, worsening chest x-ray, hypotension, patient was placed on BiPAP, however he remained marginal and his overall pulmonary status, and upon my evaluation in the ICU, patient clearly needed to be intubated and placed on mechanical ventilation as he was clearly hypotensive, febrile, and he was also noted to have very marginal O2 saturation on 100% BiPAP. Discussed with the patient the need for intubation mechanical ventilation, he agreed, and the patient was intubated and placed on mechanical ventilation. Patient required also placement on norepinephrine, vasopressin, and his antibiotics coverage was broadened. Cardiology was asked to reevaluate him because of his increased troponin and his increase BNP level. Chest x-ray showed initially evidence of interstitial edema and possible underlying pneumonia. Post intubation, follow-up chest x-ray showed cardiomegaly, possible multifocal bilateral opacities a greater in the mid and lower lungs. Hence we'll broaden the spectrum of his antibiotics cover age, and the patient required to be placed on high FiO2, required high PEEP, and follow-up ABG done showed a pO2 of 71 pCO2 of 39 pH of 7.27 and this was on 100% FiO2, and PEEP of 10. Reevaluated today on 03/25/2020, patient remains in the ICU, intubated and mechanically ventilated. He is now on FiO2 of 80% assist control rate of 26, tidal volume is 450, PEEP at 12, however after reviewing his follow-up ABG this morning 2, I was able to cut down his FiO2 down to 65%, and the PEEP was increased to 14. Patient is on propofol at 40 mcg/kg/m, IV fluid at 75 mL per hour, sodium bicarb drip at 50 ML per hour vasopressin at 0.03 units per minute. Is also on norepinephrine at 0.75 mcg/kg/m, and the Nimbex at 1.5. Patient is also on Dilaudid 0.5 mg every 2 hours around the clock. Patient was started on enteral feeding today. Antibiotics ramon he is on doxycycline, Levaquin, and Zosyn was added by infectious disease on the case. Pro-calcitonin level is on the rise, it is 73.94, this is extremely high level. WBC count is up to 43.6. C-reactive protein is 545 chest x-ray is showing worsening right lower lobe infiltrate. Small left pleural effusion, lines and catheters are in proper po sitions ABG today showed a pO2 of 88 pCO2 of 42 pH of 7.24, hence the patient will remain on 65% FiO2, PEEP of 14, otherwise remaining vent settings will be unchanged. He is on assist control rate of 26 and tidal volume is 450. Patient was seen by infectious disease on consultation, Zosyn was added empirically in addition to doxycycline and Levaquin. Enteral feeding will be started today on this patient, and this would be addressing his nutritional support. Patient remains on GI and DVT prophylaxis. Reevaluated today on 03/26/2020, patient remains in the ICU, intubated and mechanically ventilated. He is on assist control rate of 26, volume is 450 FiO2 is 60% PEEP is 14, ABG showed a pO2 of 90 pCO2 of 39 pH of 7.26, hence his sodium bicarb drip was increased and his FiO2 was decreased down to 50% however The PEEP at 14. Patient remains on multiple drips including bicarb drip at 75 m L per hour, Nimbex at 1.5 mcg/kg/m, propofol at 50 mcg/kg/m, norepinephrine at 0.6 mcg/kg/m. Patient is not making much urine, his chest x-ray is showing slight improvement in his right lower lobe pneumonia. However obviously the patient remains quite ill, and septic requiring multiple pressors including norepinephrine and vasopressin. Considering the deterioration in his renal status, patient is definitely heading towards hemodialysis, and we'll consult vascular surgery for a dialysis catheter placement. The meantime the patient remains on Levaquin, doxycycline, Zosyn, cultures so far are nondiagnostic including blood cultures and sputum cultures. Yesterday the patient was also started on Solu-Medrol, he had significant leukocytosis yesterday, improving, and repeat pro-calcitonin level is pending. Patient was given yesterday 80 mg of Lasix, hardly any response. Patient remains on enteral feeding. Slight distention of the abdomen was noted today, but x-rays of the abdomen were nondiagnostic of obstruction. WBC count today is 16.8 hemoglobin is 13. Continues to have significant neutrophilia, electrolytes are normal except bicarb remains low at 15. Liver enzymes/transaminases were noted to be a bit elevated. Likely consistent with shocked liver. White count today is 16.8 compared to 43.6 yesterday. Reevaluated today on 03/27/2020, patient remains in the ICU, intubated and mechanically ventilated. Patient is on the same ventilator settings assist control rate of 26 tidal volume is 450 FiO2 50% and PEEP of 14. Remains on multiple drips including vasopressin at 0.03 units per minute, norepinephrine was increased yesterday to 0.17 mcg/kg/m. Nimbex 1.5 mcg/kg/m. Propofol 40 mcg/kg/m. Bicarb drip 75 ML per hour. Patient remains on enteral feeding, however considering that the patient is developing high residual and some abdominal distention, I did recommend holding feeding and intermittent suction on the nasogastric tube. I also plan to discontinue Nimbex today, and replace it with fentanyl. The patient on the same ventilator settings except increase the flow rate to 70 L/m. I have also recommended surgical evaluation for his abdominal distention. X-rays of the abdomen are nondiagnostic. Patient is not stable enough to go down for CT of the abdomen and pelvis at this point considering he is requiring significant amount of pressors. Patient will be seen by nephrology today, and will likely undergo dialysis. Sodium bicarb was given. Nimbex would be discontinued, and bicarb will be given for his metabolic acidosis. Antibiotics remained the same. Chest x-ray is showing definite improvement, but that is not reflected on his oxygenation much. Cultures including blood cultures, sputum cultures are nondiagnostic so far. His sugars are running high, and I will recommend insulin drip on this patient. WBC count today is 10.2 hemoglobin is 11.3. ABG showed a pO2 of 74 pH of 7.26 pCO2 is 41. WBC count is 10.2 hemoglobin is 11.3. Renal profile is much worse today, BUN is 93 creatinine 7.02. Electrolytes are normal bicarb remains low at 16. Reevaluated today on 03/28/2020, patient remains in the ICU, intubated and mechanically ventilated. Remains on the same ventilator settings, assist control rate of 26 tidal volume is 450 FiO2 50% PEEP of 14. ABG showed a pO2 of 89 pCO2 of 34 pH of 7.41, hence no change was made in the ventilator settings. However I noticed some leak around the endotracheal tube, and recommended respir atory to have more air in the cough, and adjustment of the endotracheal tube placement. Patient is on multiple drips including fentanyl 0.25 mcg/kg/h, norepinephrine is at 0.05 mcg/kg/m. Propofol at 60 mcg/kg/m. Heparin drip, insulin 5 units per hour drip, and bicarb drip at 75 mL per hour. Patient is back on enteral feeding since he responded well to lactulose, and had multiple bowel movements now he has a fecal management system. In place. Patient went into atrial fibrillation around 4:30 AM, however his rate seems to be fairly well controlled, and basically on heparin only. Underwent SLED yesterday, and was tolerated, 200 mL oFF. Chest x-ray continues to show bilateral interstitial infiltrates, consistent with ARDS. Although the possibility of interstitial edema/fluid overload secondary to renal failure and oliguria. Is not entirely ruled out. Microbiology from sputum and blood remains nondiagnostic. titer for Francisella is pending. CBC is normal WBC count is 7.6 hemoglobin is 10.8. PTT is 53.3. Liver enzymes remain slightly elevated. Repeat pro-calcitonin is pending. Urine Legionella antigen is negative On 03/29/2020 patient seen in follow-up in the intensive care unit, patient remains sedated, and intubated on mechanical ventilator current vent settings are assist control mode of ventilation with a rate of 26, tidal -450, FiO2 of 50% and PEEP of 14 this morning blood gases were reviewed showing pO2 112, pCO2 39 pH of 7.39 and subsequently FiO2 was dropped down to 45%. Is on multiple IV was including 0.9 normal saline at rate of 50 ML per hour, fentanyl at 0.5 mcg/kg/h, insulin at 3 units per hour, Diprivan is at 65 mics per kilogram per minute, levophed is at 4 mics per minute. Patient's tube feedings have been on hold since yesterday related to episode of coffee-ground emesis. Today's hemoglobin is 10.9, white blood cell count of 7.9, significantly improved from a few days ago, PTT is 43.4, sodium is 136, potassium is 5.1, CO2 is 21, chloride is 97, B1 is 92, creatinine is 6.52, patient had hemodialysis treatment yesterday and 1 L of fluid was removed. Nephrology is following, and patient is anticipated to have hemodialysis with ultrafiltration. Today's chest x-ray shows cardiomegaly with bilateral lower lung multifocal acute infiltrates and/or atelectasis and small bilateral pleural effusions and bilateral central vascular congestion. Patient also appears to be generally fluid overloaded. Vasopressor requirements have significantly improved from a few days ago. Blood and sputum cultures have shown no growth thus far. Continue urine antigen was negative, influenza and COVID 19 PCR were negative, awaiting results of the Francisella tularensis antibody test Objective - Vital Signs Vital signs: Vital Signs Temp 98.9 F 03/29/20 04:00 Pulse 65 03/29/20 09:00 Resp 26 H 03/29/20 09:00 BP 106/54 03/29/20 07:00 Pulse Ox 96 03/29/20 09:00 Intake & Output 03/28/20 03/29/20 03/29/20 18:59 06:59 18:59 Intake Total 8929.762 6835.656 196.62 Output Total 1005 270 5 Balance 282.274 0287.656 191.62 Weight 116.6 kg 116.6 kg Intake: IV 1117 1311 101 0.9 NACL 220 20 Dextrose 5% in Water 1, 975 825 75 000 ml @ 75 mls/hr IV . [id number] ADAM with Sodium Bicarb (1 Meq/ml) 150 ml Rx#:[id number] Doxycycline 100 mg In 100 100 Sodium Chloride 0.9% 100 ml @ 100 mls/hr IVPB Q12HR [facility] Rx#:[id number] Piperacillin-Tazobactam 3 100 .375 gm In Sodium Chloride 0.9% 100 ml @ 25 mls/hr IVPB Q12HR [facility] Rx #:[id number] Pressure bag 42 66 6 Intake, IV Titration 537.614 673.656 95.62 Amount Heparin Sod,Pork in 0.45% 212.271 NaCl 25,000 unit In 0.45 % NaCl 1 250ml.bag @ 8 UNITS/KG/HR 8.944 mls/hr IV .Q24H [facility] Rx#: [id number] Insulin Regular 100 unit 46.360 36.461 In Sodium Chloride 0.9% 100 ml @ Per Protocol IV .Q0M [facility] Rx#:[id number] Norepinephrine 32 mg In 22.819 12.920 Sodium Chloride 0.9% 218 ml @ 0.05 MCG/KG/MIN 2. 233 mls/hr IV .Q24H [facility] Rx#:[id number] Piperacillin-Tazobactam 3 100 .375 gm In Sodium Chloride 0.9% 100 ml @ 25 mls/hr IVPB Q12HR [facility] Rx #:[id number] fentaNYL (PF) 1,000 mcg 93.783 61.155 In Sodium Chloride 0.9% 80 ml @ Per Protocol IV . Q0M [facility] Rx#:[id number] propofoL 500 mg In Empty 274.652 350.849 95.62 Bag 1 bag @ Titrate IV . Q0M [facility] Rx#:[id number] Tube Feeding 100 216 Other 60 90 Output: Gastric Drainage 50 Urine 5 70 5 Stool 150 Hemodialysis 1000 Other: Voiding Method Indwelling Catheter Indwelling Catheter ABP, PAP, CO, CI - Last Documented Arterial Blood Pressure 138/53 - Exam GENERAL EXAM: Sedated, 70-year-old white male, intubated on mechanical ventilator on assist control mode of ventilation with FiO2 of 50% and PEEP of 14 comfortable in no apparent distress. HEAD: Normocephalic/atraumatic. EYES: Normal reaction of pupils, equal size. Conjunctiva pink, sclera white. NOSE: Clear with pink turbinates. THROAT: No erythema or exudates. NECK: No masses, no JVD, no thyroid enlargement, no adenopathy. CHEST: No chest wall deformity. Symmetrical expansion. LUNGS: Equal air entry with no crackles, wheeze, rhonchi or dullness. CVS: Regular rate and rhythm, normal S1 and S2, no gallops, no murmurs, no rubs ABDOMEN: Soft, nontender. No hepatosplenomegaly, normal bowel sounds, no gu arding or rigidity. EXTREMITIES: No clubbing, no edema, no cyanosis, 2+ pulses and upper and lower e xtremities. MUSCULOSKELETAL: Muscle strength and tone normal. SPINE: No scoliosis or deformity SKIN: No rashes CENTRAL NERVOUS SYSTEM: Sedated and intubated. No focal deficits, tone is normal in all 4 extremities. - Labs CBC & Chem 7: 03/29/20 04:05 03/29/20 04:05 Labs: Abnormal Lab Results - Last 24 Hours (Table) 03/28/20 03/28/20 03/28/20 Range/Units 03:25 10:22 11:06 RBC (4.30-5.90) m/uL Hgb (13.0-17.5) gm/dL Hct (39.0-53.0) % Lymphocytes # (1.0-4.8) k/uL APTT 53.3 H (22.0-30.0) sec ABG pO2 (83-108) mmHg ABG Total CO2 (19-24) mmol/L Sodium (137-145) mmol/L Chloride (98-107) mmol/L Carbon Dioxide (22-30) mmol/L BUN (9-20) mg/dL Creatinine (0.66-1.25) mg/dL Glucose (74-99) mg/dL POC Glucose (mg/dL) 195 H (75-99) mg/dL Calcium (8.4-10.2) mg/dL Phosphorus (2.5-4.5) mg/dL AST (17-59) U/L ALT (4-49) U/L Alkaline Phosphatase (38-126) U/L Total Protein (6.3-8.2) g/dL Albumin (3.5-5.0) g/dL Procalcitonin 59.06 H (0.02-0.09) ng/mL 03/28/20 03/28/20 03/28/20 Range/Units 11:56 13:04 14:46 RBC (4.30-5.90) m/uL Hgb (13.0-17.5) gm/dL Hct (39.0-53.0) % Lymphocytes # (1.0-4.8) k/uL APTT (22.0-30.0) sec ABG pO2 (83-108) mmHg ABG Total CO2 (19-24) mmol/L Sodium (137-145) mmol/L Chloride (98-107) mmol/L Carbon Dioxide (22-30) mmol/L BUN (9-20) mg/dL Creatinine (0.66-1.25) mg/dL Glucose (74-99) mg/dL POC Glucose (mg/dL) 167 H 167 H 138 H (75-99) mg/dL Calcium (8.4-10.2) mg/dL Phosphorus (2.5-4.5) mg/dL AST (17-59) U/L ALT (4-49) U/L Alkaline Phosphatase (38-126) U/L Total Protein (6.3-8.2) g/dL Albumin (3.5-5.0) g/dL Procalcitonin (0.02-0.09) ng/mL 03/28/20 03/28/20 03/28/20 Range/Units 15:52 17:12 18:14 RBC (4.30-5.90) m/uL Hgb (13.0-17.5) gm/dL Hct (39.0-53.0) % Lymphocytes # (1.0-4.8) k/uL APTT (22.0-30.0) sec ABG pO2 (83-108) mmHg ABG Total CO2 (19-24) mmol/L Sodium (137-145) mmol/L Chloride (98-107) mmol/L Carbon Dioxide (22-30) mmol/L BUN (9-20) mg/dL Creatinine (0.66-1.25) mg/dL Glucose (74-99) mg/dL POC Glucose (mg/dL) 166 H 170 H 159 H (75-99) mg/dL Calcium (8.4-10.2) mg/dL Phosphorus (2.5-4.5) mg/dL AST (17-59) U/L ALT (4-49) U/L Alkaline Phosphatase (38-126) U/L Total Protein (6.3-8.2) g/dL Albumin (3.5-5.0) g/dL Procalcitonin (0.02-0.09) ng/mL 03/28/20 03/28/20 03/28/20 Range/Units 20:15 21:14 23:03 RBC (4.30-5.90) m/uL Hgb (13.0-17.5) gm/dL Hct (39.0-53.0) % Lymphocytes # (1.0-4.8) k/uL APTT (22.0-30.0) sec ABG pO2 (83-108) mmHg ABG Total CO2 (19-24) mmol/L Sodium (137-145) mmol/L Chloride (98-107) mmol/L Carbon Dioxide (22-30) mmol/L BUN (9-20) mg/dL Creatinine (0.66-1.25) mg/dL Glucose (74-99) mg/dL POC Glucose (mg/dL) 177 H 185 H 206 H (75-99) mg/dL Calcium (8.4-10.2) mg/dL Phosphorus (2.5-4.5) mg/dL AST (17-59) U/L ALT (4-49) U/L Alkaline Phosphatase (38-126) U/L Total Protein (6.3-8.2) g/dL Albumin (3.5-5.0) g/dL Procalcitonin (0.02-0.09) ng/mL 03/28/20 03/29/20 03/29/20 Range/Units 23:52 01:04 01:56 RBC (4.30-5.90) m/uL Hgb (13.0-17.5) gm/dL Hct (39.0-53.0) % Lymphocytes # (1.0-4.8) k/uL APTT (22.0-30.0) sec ABG pO2 (83-108) mmHg ABG Total CO2 (19-24) mmol/L Sodium (137-145) mmol/L Chloride (98-107) mmol/L Carbon Dioxide (22-30) mmol/L BUN (9-20) mg/dL Creatinine (0.66-1.25) mg/dL Glucose (74-99) mg/dL POC Glucose (mg/dL) 191 H 177 H 174 H (75-99) mg/dL Calcium (8.4-10.2) mg/dL Phosphorus (2.5-4.5) mg/dL AST (17-59) U/L ALT (4-49) U/L Alkaline Phosphatase (38-126) U/L Total Protein (6.3-8.2) g/dL Albumin (3.5-5.0) g/dL Procalcitonin (0.02-0.09) ng/mL 03/29/20 03/29/20 03/29/20 Range/Units 04:05 04:05 04:05 RBC 3.34 L (4.30-5.90) m/uL Hgb 10.9 L (13.0-17.5) gm/dL Hct 31.1 L (39.0-53.0) % Lymphocytes # 0.1 L (1.0-4.8) k/uL APTT >200.0 H* (22.0-30.0) sec ABG pO2 (83-108) mmHg ABG Total CO2 (19-24) mmol/L Sodium 136 L (137-145) mmol/L Chloride 97 L (98-107) mmol/L Carbon Dioxide 21 L (22-30) mmol/L BUN 92 H (9-20) mg/dL Creatinine 6.52 H (0.66-1.25) mg/dL Glucose 186 H (74-99) mg/dL POC Glucose (mg/dL) (75-99) mg/dL Calcium 7.5 L (8.4-10.2) mg/dL Phosphorus (2.5-4.5) mg/dL AST 99 H (17-59) U/L ALT 96 H (4-49) U/L Alkaline Phosphatase 160 H (38-126) U/L Total Protein 5.3 L (6.3-8.2) g/dL Albumin 2.5 L (3.5-5.0) g/dL Procalcitonin (0.02-0.09) ng/mL 03/29/20 03/29/20 03/29/20 Range/Units 04:05 04:06 05:04 RBC (4.30-5.90) m/uL Hgb (13.0-17.5) gm/dL Hct (39.0-53.0) % Lymphocytes # (1.0-4.8) k/uL APTT (22.0-30.0) sec ABG pO2 112 H (83-108) mmHg ABG Total CO2 25 H (19-24) mmol/L Sodium (137-145) mmol/L Chloride (98-107) mmol/L Carbon Dioxide (22-30) mmol/L BUN (9-20) mg/dL Creatinine (0.66-1.25) mg/dL Glucose (74-99) mg/dL POC Glucose (mg/dL) 184 H (75-99) mg/dL Calcium (8.4-10.2) mg/dL Phosphorus 11.7 H* (2.5-4.5) mg/dL AST (17-59) U/L ALT (4-49) U/L Alkaline Phosphatase (38-126) U/L Total Protein (6.3-8.2) g/dL Albumin (3.5-5.0) g/dL Procalcitonin (0.02-0.09) ng/mL 03/29/20 03/29/20 03/29/20 Range/Units 05:14 06:04 07:07 RBC (4.30-5.90) m/uL Hgb (13.0-17.5) gm/dL Hct (39.0-53.0) % Lymphocytes # (1.0-4.8) k/uL APTT (22.0-30.0) sec ABG pO2 (83-108) mmHg ABG Total CO2 (19-24) mmol/L Sodium (137-145) mmol/L Chloride (98-107) mmol/L Carbon Dioxide (22-30) mmol/L BUN (9-20) mg/dL Creatinine (0.66-1.25) mg/dL Glucose (74-99) mg/dL POC Glucose (mg/dL) 172 H 166 H 178 H (75-99) mg/dL Calcium (8.4-10.2) mg/dL Phosphorus (2.5-4.5) mg/dL AST (17-59) U/L ALT (4-49) U/L Alkaline Phosphatase (38-126) U/L Total Protein (6.3-8.2) g/dL Albumin (3.5-5.0) g/dL Procalcitonin (0.02-0.09) ng/mL 03/29/20 03/29/20 Range/Units 09:13 09:15 RBC (4.30-5.90) m/uL Hgb (13.0-17.5) gm/dL Hct (39.0-53.0) % Lymphocytes # (1.0-4.8) k/uL APTT 43.4 H (22.0-30.0) sec ABG pO2 (83-108) mmHg ABG Total CO2 (19-24) mmol/L Sodium (137-145) mmol/L Chloride (98-107) mmol/L Carbon Dioxide (22-30) mmol/L BUN (9-20) mg/dL Creatinine (0.66-1.25) mg/dL Glucose (74-99) mg/dL POC Glucose (mg/dL) 171 H (75-99) mg/dL Calcium (8.4-10.2) mg/dL Phosphorus (2.5-4.5) mg/dL AST (17-59) U/L ALT (4-49) U/L Alkaline Phosphatase (38-126) U/L Total Protein (6.3-8.2) g/dL Albumin (3.5-5.0) g/dL Procalcitonin (0.02-0.09) ng/mL Microbiology - Last 24 Hours (Table) 03/22/20 13:51 Blood Culture - Final Blood No Growth after 144 hours 03/24/20 11:19 Blood Culture - Preliminary Blood No Growth after 96 hours 03/24/20 09:08 Blood Culture - Preliminary Blood No Growth after 96 hours Assessment and Plan Plan: Assessment: #1. 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 Titers for Francisella are pending. Sputum cultures and blood cultures are negative, Legionella urine antigen was negative. Influenza and COVID 19 PCR were negative. He is covered with a combination of Levaquin, Zosyn and doxycycline. #2. Acute septic shock requiring pressors in the form of norepinephrine, patient was weaned off the vasopressin yesterday #3. Acute ARDS secondary to pneumonia and sepsis #4. Acute kidney injury suspect acute tubular necrosis from hypotension and septic shock, requiring hemodialysis and ultrafiltration #5. Acute diastolic congestive heart failure. Echocardiogram showed no evidence of LV dysfunction and no evidence of pericardial effusion #6. History of underlying coronary artery disease #7. History of hypertension #8. Multiorgan system failure secondary to sepsis and septic shock #9. Ex-smoker #10. New-onset atrial fibrillation, rate is controlled, heparin drip is currently on hold related to episode of coffee-ground emesis, patient is currently back into sinus rhythm with a first-degree AV block #11. Acute ileus, resolved #12. Episode of coffee-ground emesis, hemoglobin is stable at 10.8 Plan: Continue current antibiotics, awaiting titers for Francisella tularensis. Vasopressors, patient will have another hemodialysis with ultrafiltration today. His leukocytosis and vasopressor requirement have significantly improved, his been afebrile, his blood and sputum cultures have been negative thus far, Legionella urine antigen is negative we will obtain follow-up pro-calcitonin, resume tube feedings. Monitor for signs of bleeding. FiO2 down to 45%, continue with the same PEEP at 14. Not quite ready for DIS and weaning trials. We'll continue to closely monitor. I performed a history & physical examination of the patient and discussed their management with my nurse practitioner, Rosanna Fields. I reviewed the nurse practitioner's note and agree with the documented findings and plan of care. Lung sounds are positive for diminished breath sounds. The findings and the impression was discussed with the patient. I attest to the documentation by the nurse practitioner. Time with Patient: Greater than 30
--- NOTE | 2020-03-29 10:36 | P.PN ---
Subjective Progress Note Date: 03/29/20 Principal diagnosis: Acute hypoxic respiratory failure Patient is sedated and intubated. Tube feeding was discontinued this morning after the patient had an episode of tarry materials in the OG tube. His IV heparin was discontinued as well. He is still on low-dose norepinephrine. He tolerated dialysis yesterday and scheduled again for dialysis today. Objective - Vital Signs Vital signs: Vital Signs Temp 98.9 F 03/29/20 04:00 Pulse 65 03/29/20 09:00 Resp 26 H 03/29/20 09:00 BP 106/54 03/29/20 07:00 Pulse Ox 96 03/29/20 09:00 Intake & Output 03/28/20 03/29/20 03/29/20 18:59 06:59 18:59 Intake Total 4606.354 4170.656 196.62 Output Total 1005 270 5 Balance 399.656 0467.656 191.62 Weight 116.6 kg 116.6 kg Intake: IV 1117 1311 101 0.9 NACL 220 20 Dextrose 5% in Water 1, 975 825 75 000 ml @ 75 mls/hr IV . [id number] ADAM with Sodium Bicarb (1 Meq/ml) 150 ml Rx#:[id number] Doxycycline 100 mg In 100 100 Sodium Chloride 0.9% 100 ml @ 100 mls/hr IVPB Q12HR ADAM Rx#:[id number] Piperacillin-Tazobactam 3 100 .375 gm In Sodium Chloride 0.9% 100 ml @ 25 mls/hr IVPB Q12HR ADAM Rx #:[id number] Pressure bag 42 66 6 Intake, IV Titration 537.614 673.656 95.62 Amount Heparin Sod,Pork in 0.45% 212.271 NaCl 25,000 unit In 0.45 % NaCl 1 250ml.bag @ 8 UNITS/KG/HR 8.944 mls/hr IV .Q24H ADAM Rx#: [id number] Insulin Regular 100 unit 46.360 36.461 In Sodium Chloride 0.9% 100 ml @ Per Protocol IV .Q0M ADAM Rx#:[id number] Norepinephrine 32 mg In 22.819 12.920 Sodium Chloride 0.9% 218 ml @ 0.05 MCG/KG/MIN 2. 233 mls/hr IV .Q24H ADAM Rx#:[id number] Piperacillin-Tazobactam 3 100 .375 gm In Sodium Chloride 0.9% 100 ml @ 25 mls/hr IVPB Q12HR ADAM Rx #:[id number] fentaNYL (PF) 1,000 mcg 93.783 61.155 In Sodium Chloride 0.9% 80 ml @ Per Protocol IV . Q0M ADAM Rx#:[id number] propofoL 500 mg In Empty 274.652 350.849 95.62 Bag 1 bag @ Titrate IV . Q0M ADAM Rx#:[id number] Tube Feeding 100 216 Other 60 90 Output: Gastric Drainage 50 Urine 5 70 5 Stool 150 Hemodialysis 1000 Other: Voiding Method Indwelling Catheter Indwelling Catheter ABP, PAP, CO, CI - Last Documented Arterial Blood Pressure 138/53 - Exam General: The patient is sedated and intubated Eye: there is normal conjunctiva bilaterally. Neck: The neck is supple, there is no JVD. Cardiovascular: Normal S1-S2, no S3-S4, no murmurs. Respiratory: Lungs mechanical ventilator sounds Gastrointestinal: Abdomen is soft, nontender, slightly distended Musculoskeletal: There is no pedal edema. Skin: Skin is warm and dry - Labs CBC & Chem 7: 03/29/20 04:05 03/29/20 04:05 Labs: Abnormal Lab Results - Last 24 Hours (Table) 03/28/20 03/28/20 03/28/20 Range/Units 03:25 10:22 11:06 RBC (4.30-5.90) m/uL Hgb (13.0-17.5) gm/dL Hct (39.0-53.0) % Lymphocytes # (1.0-4.8) k/uL APTT 53.3 H (22.0-30.0) sec ABG pO2 (83-108) mmHg ABG Total CO2 (19-24) mmol/L Sodium (137-145) mmol/L Chloride (98-107) mmol/L Carbon Dioxide (22-30) mmol/L BUN (9-20) mg/dL Creatinine (0.66-1.25) mg/dL Glucose (74-99) mg/dL POC Glucose (mg/dL) 195 H (75-99) mg/dL Calcium (8.4-10.2) mg/dL Phosphorus (2.5-4.5) mg/dL AST (17-59) U/L ALT (4-49) U/L Alkaline Phosphatase (38-126) U/L Total Protein (6.3-8.2) g/dL Albumin (3.5-5.0) g/dL Procalcitonin 59.06 H (0.02-0.09) ng/mL 03/28/20 03/28/20 03/28/20 Range/Units 11:56 13:04 14:46 RBC (4.30-5.90) m/uL Hgb (13.0-17.5) gm/dL Hct (39.0-53.0) % Lymphocytes # (1.0-4.8) k/uL APTT (22.0-30.0) sec ABG pO2 (83-108) mmHg ABG Total CO2 (19-24) mmol/L Sodium (137-145) mmol/L Chloride (98-107) mmol/L Carbon Dioxide (22-30) mmol/L BUN (9-20) mg/dL Creatinine (0.66-1.25) mg/dL Glucose (74-99) mg/dL POC Glucose (mg/dL) 167 H 167 H 138 H (75-99) mg/dL Calcium (8.4-10.2) mg/dL Phosphorus (2.5-4.5) mg/dL AST (17-59) U/L ALT (4-49) U/L Alkaline Phosphatase (38-126) U/L Total Protein (6.3-8.2) g/dL Albumin (3.5-5.0) g/dL Procalcitonin (0.02-0.09) ng/mL 03/28/20 03/28/20 03/28/20 Range/Units 15:52 17:12 18:14 RBC (4.30-5.90) m/uL Hgb (13.0-17.5) gm/dL Hct (39.0-53.0) % Lymphocytes # (1.0-4.8) k/uL APTT (22.0-30.0) sec ABG pO2 (83-108) mmHg ABG Total CO2 (19-24) mmol/L Sodium (137-145) mmol/L Chloride (98-107) mmol/L Carbon Dioxide (22-30) mmol/L BUN (9-20) mg/dL Creatinine (0.66-1.25) mg/dL Glucose (74-99) mg/dL POC Glucose (mg/dL) 166 H 170 H 159 H (75-99) mg/dL Calcium (8.4-10.2) mg/dL Phosphorus (2.5-4.5) mg/dL AST (17-59) U/L ALT (4-49) U/L Alkaline Phosphatase (38-126) U/L Total Protein (6.3-8.2) g/dL Albumin (3.5-5.0) g/dL Procalcitonin (0.02-0.09) ng/mL 03/28/20 03/28/20 03/28/20 Range/Units 20:15 21:14 23:03 RBC (4.30-5.90) m/uL Hgb (13.0-17.5) gm/dL Hct (39.0-53.0) % Lymphocytes # (1.0-4.8) k/uL APTT (22.0-30.0) sec ABG pO2 (83-108) mmHg ABG Total CO2 (19-24) mmol/L Sodium (137-145) mmol/L Chloride (98-107) mmol/L Carbon Dioxide (22-30) mmol/L BUN (9-20) mg/dL Creatinine (0.66-1.25) mg/dL Glucose (74-99) mg/dL POC Glucose (mg/dL) 177 H 185 H 206 H (75-99) mg/dL Calcium (8.4-10.2) mg/dL Phosphorus (2.5-4.5) mg/dL AST (17-59) U/L ALT (4-49) U/L Alkaline Phosphatase (38-126) U/L Total Protein (6.3-8.2) g/dL Albumin (3.5-5.0) g/dL Procalcitonin (0.02-0.09) ng/mL 03/28/20 03/29/20 03/29/20 Range/Units 23:52 01:04 01:56 RBC (4.30-5.90) m/uL Hgb (13.0-17.5) gm/dL Hct (39.0-53.0) % Lymphocytes # (1.0-4.8) k/uL APTT (22.0-30.0) sec ABG pO2 (83-108) mmHg ABG Total CO2 (19-24) mmol/L Sodium (137-145) mmol/L Chloride (98-107) mmol/L Carbon Dioxide (22-30) mmol/L BUN (9-20) mg/dL Creatinine (0.66-1.25) mg/dL Glucose (74-99) mg/dL POC Glucose (mg/dL) 191 H 177 H 174 H (75-99) mg/dL Calcium (8.4-10.2) mg/dL Phosphorus (2.5-4.5) mg/dL AST (17-59) U/L ALT (4-49) U/L Alkaline Phosphatase (38-126) U/L Total Protein (6.3-8.2) g/dL Albumin (3.5-5.0) g/dL Procalcitonin (0.02-0.09) ng/mL 03/29/20 03/29/20 03/29/20 Range/Units 04:05 04:05 04:05 RBC 3.34 L (4.30-5.90) m/uL Hgb 10.9 L (13.0-17.5) gm/dL Hct 31.1 L (39.0-53.0) % Lymphocytes # 0.1 L (1.0-4.8) k/uL APTT >200.0 H* (22.0-30.0) sec ABG pO2 (83-108) mmHg ABG Total CO2 (19-24) mmol/L Sodium 136 L (137-145) mmol/L Chloride 97 L (98-107) mmol/L Carbon Dioxide 21 L (22-30) mmol/L BUN 92 H (9-20) mg/dL Creatinine 6.52 H (0.66-1.25) mg/dL Glucose 186 H (74-99) mg/dL POC Glucose (mg/dL) (75-99) mg/dL Calcium 7.5 L (8.4-10.2) mg/dL Phosphorus (2.5-4.5) mg/dL AST 99 H (17-59) U/L ALT 96 H (4-49) U/L Alkaline Phosphatase 160 H (38-126) U/L Total Protein 5.3 L (6.3-8.2) g/dL Albumin 2.5 L (3.5-5.0) g/dL Procalcitonin (0.02-0.09) ng/mL 03/29/20 03/29/20 03/29/20 Range/Units 04:05 04:06 05:04 RBC (4.30-5.90) m/uL Hgb (13.0-17.5) gm/dL Hct (39.0-53.0) % Lymphocytes # (1.0-4.8) k/uL APTT (22.0-30.0) sec ABG pO2 112 H (83-108) mmHg ABG Total CO2 25 H (19-24) mmol/L Sodium (137-145) mmol/L Chloride (98-107) mmol/L Carbon Dioxide (22-30) mmol/L BUN (9-20) mg/dL Creatinine (0.66-1.25) mg/dL Glucose (74-99) mg/dL POC Glucose (mg/dL) 184 H (75-99) mg/dL Calcium (8.4-10.2) mg/dL Phosphorus 11.7 H* (2.5-4.5) mg/dL AST (17-59) U/L ALT (4-49) U/L Alkaline Phosphatase (38-126) U/L Total Protein (6.3-8.2) g/dL Albumin (3.5-5.0) g/dL Procalcitonin (0.02-0.09) ng/mL 03/29/20 03/29/20 03/29/20 Range/Units 05:14 06:04 07:07 RBC (4.30-5.90) m/uL Hgb (13.0-17.5) gm/dL Hct (39.0-53.0) % Lymphocytes # (1.0-4.8) k/uL APTT (22.0-30.0) sec ABG pO2 (83-108) mmHg ABG Total CO2 (19-24) mmol/L Sodium (137-145) mmol/L Chloride (98-107) mmol/L Carbon Dioxide (22-30) mmol/L BUN (9-20) mg/dL Creatinine (0.66-1.25) mg/dL Glucose (74-99) mg/dL POC Glucose (mg/dL) 172 H 166 H 178 H (75-99) mg/dL Calcium (8.4-10.2) mg/dL Phosphorus (2.5-4.5) mg/dL AST (17-59) U/L ALT (4-49) U/L Alkaline Phosphatase (38-126) U/L Total Protein (6.3-8.2) g/dL Albumin (3.5-5.0) g/dL Procalcitonin (0.02-0.09) ng/mL 03/29/20 03/29/20 Range/Units 09:13 09:15 RBC (4.30-5.90) m/uL Hgb (13.0-17.5) gm/dL Hct (39.0-53.0) % Lymphocytes # (1.0-4.8) k/uL APTT 43.4 H (22.0-30.0) sec ABG pO2 (83-108) mmHg ABG Total CO2 (19-24) mmol/L Sodium (137-145) mmol/L Chloride (98-107) mmol/L Carbon Dioxide (22-30) mmol/L BUN (9-20) mg/dL Creatinine (0.66-1.25) mg/dL Glucose (74-99) mg/dL POC Glucose (mg/dL) 171 H (75-99) mg/dL Calcium (8.4-10.2) mg/dL Phosphorus (2.5-4.5) mg/dL AST (17-59) U/L ALT (4-49) U/L Alkaline Phosphatase (38-126) U/L Total Protein (6.3-8.2) g/dL Albumin (3.5-5.0) g/dL Procalcitonin (0.02-0.09) ng/mL Microbiology - Last 24 Hours (Table) 03/22/20 13:51 Blood Culture - Final Blood No Growth after 144 hours 03/24/20 11:19 Blood Culture - Preliminary Blood No Growth after 96 hours 03/24/20 09:08 Blood Culture - Preliminary Blood No Growth after 96 hours Assessment and Plan Assessment: Patient is a 70-year-old male with a past medical history noted below who presented with a chief complaint of chest pain. Patient was evaluated in the ER and was noted to have evidence of sepsis with possible underlying pneumonia. He was admitted to the hospital and ACS was ruled out. He was started on antibiotic with IV ceftriaxone and oral azithromycin. He was a high suspicion for COVID-19 on initial presentation secondary to elevated inflammatory markers and his clinical presentation. COVID-19 test was negative twice including a rapid and a traditional PCR test. Patient was seen and evaluated by cardiology on presentation and ACS was ruled out. Echocardiogram showed a preserved ejection fraction with no significant wall motion abnormalities. On the morning on 03/23, his clinical condition started to deteriorate with increased oxygen requirement and increased work of breathing requiring transfer to the intensive care unit. Patient was eventually sedated and intubated requiring mechanical ventilation. Nose list of his medical problems addressed during this hospitalization. 1. Acute hypoxic respiratory failure requiring intubation and mechanical ventilation on 03/24. This is most likely secondary to underlying pneumonia with ARDS. Pulmonary edema ruled out by cardiology with a repeat echocardiogram showing preserved ejection fraction. He is currently in the ICU and ventilator being managed by ICU team. 2. Acute kidney failure, oliguric. Suspected ATN Seen and evaluated by nephrology. Started on dialysis on 03/27. Repeat lab work in the morning. 3. Left lower lobe pneumonia: There was a concern about possible francisella tularensis infection given history provided by family the patient was hunting coyotes. He was started initially on IV ceftriaxone and oral azithromycin and antibiotic changed to doxycycline and Levaquin on 03/24. Zosyn added by infecti ous disease. Sputum culture ordered. COVID-19 and influenza screen negative on admission 4. Severe sepsis with septic shock, requiring vasopressors. Managed by ICU team. Blood cultures negative to date 5. Suspected acute diastolic heart failure exacerbation. Echocardiogram on presentation showed a preserved ejection fraction and no significant valvular abnormalities. Repeat limited echocardiogram showed EF of 55%. Patient received multiple doses of IV Lasix. 6. New onset atrial fibrillation, converted spontaneously to normal sinus rhythm. Patient was started on IV heparin but later discontinued secondary to questionable GI bleed with starting materials in the OG tube 7. Chest pain with pleurisy on presentation: ACS ruled out. EKG on presentation with no acute ischemic changes. Troponin was negative on presentation. CT PE protocol negative for PE. Troponin turned positive on 03/24, most likely secondary to supply demand mismatch given septic shock. Cardiology following and the repeat echocardiogram reviewed 8. Suspected ileus, patient continued to have a distended abdomen. Abdominal x-ray showed no acute findings. 9. Hypomagnesemia and hyponatremia, on presentation now resolved 10. Chronic medical problems: Hyperlipidemia, hypertension, GERD 11. GI and DVT prophylaxis with IV Protonix and subcu Lovenox 12. CODE STATUS patient is full code Over the weekend, I spoke to both patient's sister and significant other on the phone. I gave them an update about the patient's current critical condition. They have a lot of questions regarding his medication doses and then settings. I answered all of the questions to satisfaction.
[2020-03-29 10:45] LABS: Glucose,Whole Blood 152 mg/dL (75-99)
[2020-03-29 11:39] LABS: Glucose,Whole Blood 131 mg/dL (75-99)
[2020-03-29] MEDS: NOREPINEPHRINE 32 MG in SODIUM CHLORIDE 0.9% 218 ML IV SCH (12:44)
[2020-03-29] MEDS: CALCIUM ACETATE 667 MG TAB PO SCH ×2 (12:53→18:41)
[2020-03-29 12:59] LABS: Glucose,Whole Blood 137 mg/dL (75-99)
[2020-03-29 13:59] LABS: Anti-Glomerular Basement Memb 3 UNITS (0-20)
[2020-03-29 14:02] LABS: C-ANCA <1:20 Titer (<1:20)
[2020-03-29 14:13] LABS: Glucose,Whole Blood 126 mg/dL (75-99)
--- NOTE | 2020-03-29 14:18 | PN ---
PROGRESS NOTE DATE OF SERVICE: 03/29/2020. REASON FOR FOLLOWUP: Pneumonia. INTERVAL HISTORY: The patient is currently afebrile. The patient is hemodynamically stable, requiring less pressor support. The patient did have some cough. emesis. tube has been put on hold. Did have diarrhea but no worsening reported by the nursing staff. No other changes. PHYSICAL EXAMINATION: Blood pressure is 107/47 with a pulse of 61, temperature 98.4. He is 96% on 50% FiO2. General description is an elderly male, intubated on the vent. RESPIRATORY SYSTEM: Unlabored breathing, decreased intensity of breath sounds. No wheeze. HEART: S1, S2. Regular rate and rhythm. ABDOMEN: Soft, no tenderness. LABS: Hemoglobin 10.9, white count 7.9, BUN of 92, creatinine 6.52. Blood culture so far negative. Sputum is negative. DIAGNOSTIC IMPRESSION AND PLAN: Patient with acute respiratory failure which is multifactorial in this patient with a component of pneumonia possibly . The patient clinically responded to Zosyn, Levaquin and doxycycline to continue. Will monitor his clinical course closely. Continue with supportive care. MMODL / IJN: [id number] /
--- NOTE | 2020-03-29 14:24 | P.PN ---
Subjective Progress Note Date: 03/29/20 CHIEF COMPLAINT: Ileus HISTORY OF PRESENT ILLNESS: Patient is being followed for an abdominal ileus. He is in the hospital for pneumonia. He is currently getting hemodialysis in the ICU. Patient had coffee ground emesis reported by nursing staff through the NG tube. Heparin was discontinued. His hemoglobin is stable. His tube feedings were restarted and are at goal of 12 mL per hour. Afebrile PHYSICAL EXAM: VITAL SIGNS: Reviewed. GENERAL: Well-developed in no acute distress. HEENT: No sclera icterus. Extraocular movements grossly intact. Moist buccal mucosa. Head is atraumatic, normocephalic. ABDOMEN: Soft. Nondistended. Nontender. NEUROLOGIC: Alert and oriented. Cranial nerves II through XII grossly intact. ASSESSMENT: 1. Ileus resolved 2. Episode of coffee ground emesis likely due to NG tube irritation, will monitor PLAN: -Continue supportive care -Continue to monitor for any signs or symptoms of bleeding -Continue to monitor hemoglobin Physician District Adviser note has been reviewed by physician. Signing provider agrees with the documented findings, assessment, and plan of care. Objective - Vital Signs Vital signs: Vital Signs Temp 98.4 F 03/29/20 12:00 Pulse 61 03/29/20 13:00 Resp 26 H 03/29/20 13:00 BP 106/54 03/29/20 07:00 Pulse Ox 96 03/29/20 13:00 Intake & Output 03/28/20 03/29/20 03/29/20 18:59 06:59 18:59 Intake Total 1077.085 0344.656 858.735 Output Total 1005 270 5 Balance 057.029 8679.656 853.735 Weight 116.6 kg 116.6 kg Intake: IV 1117 1311 356 0.9 NACL 220 20 Dextrose 5% in Water 1, 975 825 75 000 ml @ 50 mls/hr IV . Q23H ADAM with Sodium Bicarb (1 Meq/ml) 150 ml Rx#:[id number] Doxycycline 100 mg In 100 100 100 Sodium Chloride 0.9% 100 ml @ 100 mls/hr IVPB Q12HR ADAM Rx#:[id number] Piperacillin-Tazobactam 3 100 125 .375 gm In Sodium Chloride 0.9% 100 ml @ 25 mls/hr IVPB Q12HR ADAM Rx #:[id number] Pressure bag 42 66 36 Intake, IV Titration 537.614 673.656 478.735 Amount Heparin Sod,Pork in 0.45% 212.271 NaCl 25,000 unit In 0.45 % NaCl 1 250ml.bag @ 8 UNITS/KG/HR 8.944 mls/hr IV .Q24H ADAM Rx#: [id number] Insulin Regular 100 unit 46.360 36.461 18.550 In Sodium Chloride 0.9% 100 ml @ Per Protocol IV .Q0M ADAM Rx#:[id number] Norepinephrine 32 mg In 22.819 12.920 14.565 Sodium Chloride 0.9% 218 ml @ 0.05 MCG/KG/MIN 2. 233 mls/hr IV .Q24H ADAM Rx#:[id number] Piperacillin-Tazobactam 3 100 .375 gm In Sodium Chloride 0.9% 100 ml @ 25 mls/hr IVPB Q12HR ADAM Rx #:[id number] Sodium Chloride 0.9% 1, 250 000 ml @ 50 mls/hr IV . Q20H ADAM Rx#:[id number] fentaNYL (PF) 1,000 mcg 93.783 61.155 In Sodium Chloride 0.9% 80 ml @ Per Protocol IV . Q0M ADAM Rx#:[id number] propofoL 500 mg In Empty 274.652 350.849 195.62 Bag 1 bag @ Titrate IV . Q0M ADAM Rx#:[id number] Tube Feeding 100 216 24 Other 60 90 Output: Gastric Drainage 50 Urine 5 70 5 Stool 150 Hemodialysis 1000 Other: Voiding Method Indwelling Catheter Indwelling Catheter ABP, PAP, CO, CI - Last Documented Arterial Blood Pressure 107/47 - Labs CBC & Chem 7: 03/29/20 04:05 03/29/20 04:05 Labs: Abnormal Lab Results - Last 24 Hours (Table) 03/28/20 03/28/20 03/28/20 Range/Units 14:46 15:52 17:12 RBC (4.30-5.90) m/uL Hgb (13.0-17.5) gm/dL Hct (39.0-53.0) % Lymphocytes # (1.0-4.8) k/uL APTT (22.0-30.0) sec ABG pO2 (83-108) mmHg ABG Total CO2 (19-24) mmol/L Sodium (137-145) mmol/L Chloride (98-107) mmol/L Carbon Dioxide (22-30) mmol/L BUN (9-20) mg/dL Creatinine (0.66-1.25) mg/dL Glucose (74-99) mg/dL POC Glucose (mg/dL) 138 H 166 H 170 H (75-99) mg/dL Calcium (8.4-10.2) mg/dL Phosphorus (2.5-4.5) mg/dL AST (17-59) U/L ALT (4-49) U/L Alkaline Phosphatase (38-126) U/L Total Protein (6.3-8.2) g/dL Albumin (3.5-5.0) g/dL 03/28/20 03/28/20 03/28/20 Range/Units 18:14 20:15 21:14 RBC (4.30-5.90) m/uL Hgb (13.0-17.5) gm/dL Hct (39.0-53.0) % Lymphocytes # (1.0-4.8) k/uL APTT (22.0-30.0) sec ABG pO2 (83-108) mmHg ABG Total CO2 (19-24) mmol/L Sodium (137-145) mmol/L Chloride (98-107) mmol/L Carbon Dioxide (22-30) mmol/L BUN (9-20) mg/dL Creatinine (0.66-1.25) mg/dL Glucose (74-99) mg/dL POC Glucose (mg/dL) 159 H 177 H 185 H (75-99) mg/dL Calcium (8.4-10.2) mg/dL Phosphorus (2.5-4.5) mg/dL AST (17-59) U/L ALT (4-49) U/L Alkaline Phosphatase (38-126) U/L Total Protein (6.3-8.2) g/dL Albumin (3.5-5.0) g/dL 03/28/20 03/28/20 03/29/20 Range/Units 23:03 23:52 01:04 RBC (4.30-5.90) m/uL Hgb (13.0-17.5) gm/dL Hct (39.0-53.0) % Lymphocytes # (1.0-4.8) k/uL APTT (22.0-30.0) sec ABG pO2 (83-108) mmHg ABG Total CO2 (19-24) mmol/L Sodium (137-145) mmol/L Chloride (98-107) mmol/L Carbon Dioxide (22-30) mmol/L BUN (9-20) mg/dL Creatinine (0.66-1.25) mg/dL Glucose (74-99) mg/dL POC Glucose (mg/dL) 206 H 191 H 177 H (75-99) mg/dL Calcium (8.4-10.2) mg/dL Phosphorus (2.5-4.5) mg/dL AST (17-59) U/L ALT (4-49) U/L Alkaline Phosphatase (38-126) U/L Total Protein (6.3-8.2) g/dL Albumin (3.5-5.0) g/dL 03/29/20 03/29/20 03/29/20 Range/Units 01:56 04:05 04:05 RBC 3.34 L (4.30-5.90) m/uL Hgb 10.9 L (13.0-17.5) gm/dL Hct 31.1 L (39.0-53.0) % Lymphocytes # 0.1 L (1.0-4.8) k/uL APTT (22.0-30.0) sec ABG pO2 (83-108) mmHg ABG Total CO2 (19-24) mmol/L Sodium 136 L (137-145) mmol/L Chloride 97 L (98-107) mmol/L Carbon Dioxide 21 L (22-30) mmol/L BUN 92 H (9-20) mg/dL Creatinine 6.52 H (0.66-1.25) mg/dL Glucose 186 H (74-99) mg/dL POC Glucose (mg/dL) 174 H (75-99) mg/dL Calcium 7.5 L (8.4-10.2) mg/dL Phosphorus (2.5-4.5) mg/dL AST 99 H (17-59) U/L ALT 96 H (4-49) U/L Alkaline Phosphatase 160 H (38-126) U/L Total Protein 5.3 L (6.3-8.2) g/dL Albumin 2.5 L (3.5-5.0) g/dL 03/29/20 03/29/20 03/29/20 Range/Units 04:05 04:05 04:06 RBC (4.30-5.90) m/uL Hgb (13.0-17.5) gm/dL Hct (39.0-53.0) % Lymphocytes # (1.0-4.8) k/uL APTT >200.0 H* (22.0-30.0) sec ABG pO2 (83-108) mmHg ABG Total CO2 (19-24) mmol/L Sodium (137-145) mmol/L Chloride (98-107) mmol/L Carbon Dioxide (22-30) mmol/L BUN (9-20) mg/dL Creatinine (0.66-1.25) mg/dL Glucose (74-99) mg/dL POC Glucose (mg/dL) 184 H (75-99) mg/dL Calcium (8.4-10.2) mg/dL Phosphorus 11.7 H* (2.5-4.5) mg/dL AST (17-59) U/L ALT (4-49) U/L Alkaline Phosphatase (38-126) U/L Total Protein (6.3-8.2) g/dL Albumin (3.5-5.0) g/dL 03/29/20 03/29/20 03/29/20 Range/Units 05:04 05:14 06:04 RBC (4.30-5.90) m/uL Hgb (13.0-17.5) gm/dL Hct (39.0-53.0) % Lymphocytes # (1.0-4.8) k/uL APTT (22.0-30.0) sec ABG pO2 112 H (83-108) mmHg ABG Total CO2 25 H (19-24) mmol/L Sodium (137-145) mmol/L Chloride (98-107) mmol/L Carbon Dioxide (22-30) mmol/L BUN (9-20) mg/dL Creatinine (0.66-1.25) mg/dL Glucose (74-99) mg/dL POC Glucose (mg/dL) 172 H 166 H (75-99) mg/dL Calcium (8.4-10.2) mg/dL Phosphorus (2.5-4.5) mg/dL AST (17-59) U/L ALT (4-49) U/L Alkaline Phosphatase (38-126) U/L Total Protein (6.3-8.2) g/dL Albumin (3.5-5.0) g/dL 03/29/20 03/29/20 03/29/20 Range/Units 07:07 09:13 09:15 RBC (4.30-5.90) m/uL Hgb (13.0-17.5) gm/dL Hct (39.0-53.0) % Lymphocytes # (1.0-4.8) k/uL APTT 43.4 H (22.0-30.0) sec ABG pO2 (83-108) mmHg ABG Total CO2 (19-24) mmol/L Sodium (137-145) mmol/L Chloride (98-107) mmol/L Carbon Dioxide (22-30) mmol/L BUN (9-20) mg/dL Creatinine (0.66-1.25) mg/dL Glucose (74-99) mg/dL POC Glucose (mg/dL) 178 H 171 H (75-99) mg/dL Calcium (8.4-10.2) mg/dL Phosphorus (2.5-4.5) mg/dL AST (17-59) U/L ALT (4-49) U/L Alkaline Phosphatase (38-126) U/L Total Protein (6.3-8.2) g/dL Albumin (3.5-5.0) g/dL 03/29/20 03/29/20 03/29/20 Range/Units 10:44 11:38 12:57 RBC (4.30-5.90) m/uL Hgb (13.0-17.5) gm/dL Hct (39.0-53.0) % Lymphocytes # (1.0-4.8) k/uL APTT (22.0-30.0) sec ABG pO2 (83-108) mmHg ABG Total CO2 (19-24) mmol/L Sodium (137-145) mmol/L Chloride (98-107) mmol/L Carbon Dioxide (22-30) mmol/L BUN (9-20) mg/dL Creatinine (0.66-1.25) mg/dL Glucose (74-99) mg/dL POC Glucose (mg/dL) 152 H 131 H 137 H (75-99) mg/dL Calcium (8.4-10.2) mg/dL Phosphorus (2.5-4.5) mg/dL AST (17-59) U/L ALT (4-49) U/L Alkaline Phosphatase (38-126) U/L Total Protein (6.3-8.2) g/dL Albumin (3.5-5.0) g/dL 03/29/20 Range/Units 14:10 RBC (4.30-5.90) m/uL Hgb (13.0-17.5) gm/dL Hct (39.0-53.0) % Lymphocytes # (1.0-4.8) k/uL APTT (22.0-30.0) sec ABG pO2 (83-108) mmHg ABG Total CO2 (19-24) mmol/L Sodium (137-145) mmol/L Chloride (98-107) mmol/L Carbon Dioxide (22-30) mmol/L BUN (9-20) mg/dL Creatinine (0.66-1.25) mg/dL Glucose (74-99) mg/dL POC Glucose (mg/dL) 126 H (75-99) mg/dL Calcium (8.4-10.2) mg/dL Phosphorus (2.5-4.5) mg/dL AST (17-59) U/L ALT (4-49) U/L Alkaline Phosphatase (38-126) U/L Total Protein (6.3-8.2) g/dL Albumin (3.5-5.0) g/dL Microbiology - Last 24 Hours (Table) 03/24/20 11:19 Blood Culture - Preliminary Blood No Growth after 120 hours 03/24/20 09:08 Blood Culture - Preliminary Blood No Growth after 120 hours 03/22/20 13:51 Blood Culture - Final Blood No Growth after 144 hours
[2020-03-29] MEDS: LEVOFLOXACIN 250MG-D5W PMX 250 MG in DEXTROSE/WATER 1 50ML.BAG IVPB SCH (14:29)
[2020-03-29 15:29] LABS: Glucose,Whole Blood 143 mg/dL (75-99)
[2020-03-29 16:30] LABS: Glucose,Whole Blood 148 mg/dL (75-99)
[2020-03-29 17:28] LABS: Glucose,Whole Blood 151 mg/dL (75-99)
[2020-03-29 18:56] LABS: Glucose,Whole Blood 142 mg/dL (75-99)
[2020-03-29 20:15] LABS: Glucose,Whole Blood 141 mg/dL (75-99)
[2020-03-29 22:02] LABS: Glucose,Whole Blood 140 mg/dL (75-99)
[2020-03-30 00:58] LABS: Glucose,Whole Blood 139 mg/dL (75-99)
[2020-03-30] MEDS: fentaNYL (PF) 1,000 MCG in SODIUM CHLORIDE 0.9% 80 ML IV SCH ×2 (01:05→17:43)
[2020-03-30 03:13] LABS: Glucose,Whole Blood 144 mg/dL (75-99)
[2020-03-30 05:07] LABS: Glucose,Whole Blood 164 mg/dL (75-99)
[2020-03-30 05:10] LABS: ABG Base Excess -3.8 mmol/L; ABG HCO3 21 mmol/L (21-25); ABG Oxygen Saturation 96.3 % (94-97); ABG PCO2 36 mmHg (35-45); ABG PH 7.38 (7.35-7.45); ABG PO2 113 mmHg (83-108); ABG TCO2 23 mmol/L (19-24); Allen Test Performed? Yes
[2020-03-30 05:11] LABS: Basophils % (A) 1 %; Eosinophils # (A) 0.1 k/uL (0-0.7); Eosinophils % (A) 1 %; HCT 31.6 % (39.0-53.0); HGB 10.9 gm/dL (13.0-17.5); Lymphocytes # (A) 0.2 k/uL (1.0-4.8); Lymphocytes % (A) 3 %; MCH 32.9 pg (25.0-35.0); MCHC 34.7 g/dL (31.0-37.0); MCV 94.9 fL (80.0-100.0); Mean Platelet Volume 7.8; Monocytes # (A) 0.2 k/uL (0-1.0); Monocytes % (A) 3 %; Neutrophils # (A) 5.8 k/uL (1.3-7.7); Neutrophils % (A) 93 %; Platelet Count 212 k/uL (150-450); RBC 3.33 m/uL (4.30-5.90); RDW 14.2 % (11.5-15.5); WBC 6.3 k/uL (3.8-10.6)
[2020-03-30] MEDS: HEPARIN SOD,PORK IN 0.45% NACL 25,000 UNIT in 0.45% NACL 1 250ML.BAG IV SCH (05:13)
[2020-03-30] MEDS: SODIUM CHLORIDE 0.9% 1,000 ML IV SCH (05:24)
[2020-03-30] MEDS: CALCIUM ACETATE 667 MG TAB PO SCH ×3 (05:42→16:36)
[2020-03-30] MEDS: methylPREDNISolone SOD SUCCI 40 MG/ML 1 ML VIAL IV SCH ×3 (05:42→17:48)
[2020-03-30 05:55] LABS: Glucose,Whole Blood 155 mg/dL (75-99)
[2020-03-30 06:50] LABS: Albumin 2.1 g/dL (3.5-5.0); Calcium 7.6 mg/dL (8.4-10.2); Potassium 5.8 mmol/L (3.5-5.1); Total Bilirubin 1.4 mg/dL (0.2-1.3); Total Protein 4.3 g/dL (6.3-8.2)
[2020-03-30 06:54] LABS: Glucose,Whole Blood 155 mg/dL (75-99)
[2020-03-30] MEDS: IPRATROPIUM-ALBUTEROL 3 ML NEB INHALATION SCH ×4 (07:30→19:30)
--- NOTE | 2020-03-30 08:12 | XR ---
EXAMINATION TYPE: XR chest 1V portable DATE OF EXAM: 03/30/2020 COMPARISON: 03/29/2020 INDICATION: Tube placement TECHNIQUE: Single frontal view of the chest is obtained. FINDINGS: The heart size is normal. The pulmonary vasculature is normal. Minimal infiltrate may be at the right base. This is improved from comparison. Endotracheal tube is in place the tip 2.8 cm above the antoinette. Nasogastric tube transverses the thora x tip in the right upper quadrant of the abdomen. EKG leads overlie the chest. IMPRESSION: 1. Improving right lower lobe infiltrate. 2. Lines and catheters discussed above
--- NOTE | 2020-03-30 08:19 | P.PN ---
Subjective Patient is seen in follow-up for acute kidney injury, currently hemodialysis dependent. Off vasopressors. Tube feedings resumed. Intubated. 45% FiO2 support. Oliguric. Vital signs are stable. General: Intubated. OG tube noted. HEENT: No JVD. LUNGS: Breath sounds decreased. HEART: Rate and Rhythm are regular. ABDOMEN: Soft. No gross distention. EXTREMITITES: 1+ edema. Scrotal edema noted. Objective - Vital Signs Vital signs: Vital Signs Temp 98.7 F 03/30/20 04:00 Pulse 66 03/30/20 07:39 Resp 26 H 03/30/20 07:00 BP 124/67 03/30/20 07:00 Pulse Ox 95 03/30/20 07:00 Intake & Output 03/29/20 03/30/20 03/30/20 18:59 06:59 18:59 Intake Total 6501.289 1489.998 84.803 Output Total 1255 10 0 Balance 141.349 2592.998 84.803 Weight 116.6 kg 117.5 kg Intake: IV 392 272 6 0.9 NACL 20 Dextrose 5% in Water 1, 75 000 ml @ 50 mls/hr IV . Q23H ADAM with Sodium Bicarb (1 Meq/ml) 150 ml Rx#:[id number] Doxycycline 100 mg In 100 100 Sodium Chloride 0.9% 100 ml @ 100 mls/hr IVPB Q12HR ADAM Rx#:[id number] Piperacillin-Tazobactam 3 125 100 .375 gm In Sodium Chloride 0.9% 100 ml @ 25 mls/hr IVPB Q12HR ADAM Rx #:[id number] Pressure bag 72 72 6 Intake, IV Titration 1037.221 919.998 66.803 Amount Insulin Regular 100 unit 18.550 30.048 In Sodium Chloride 0.9% 100 ml @ Per Protocol IV .Q0M ADAM Rx#:[id number] Norepinephrine 32 mg In 14.565 Sodium Chloride 0.9% 218 ml @ 0.05 MCG/KG/MIN 2. 233 mls/hr IV .Q24H ADAM Rx#:[id number] Sodium Chloride 0.9% 1, 550 600 50 000 ml @ 50 mls/hr IV . Q20H ADAM Rx#:[id number] fentaNYL (PF) 1,000 mcg 66.801 58.168 In Sodium Chloride 0.9% 80 ml @ Per Protocol IV . Q0M ADAM Rx#:[id number] propofoL 500 mg In Empty 387.305 231.782 16.803 Bag 1 bag @ Titrate IV . Q0M ADAM Rx#:[id number] Tube Feeding 108 144 12 Other 30 90 Output: Urine 5 10 0 Stool 250 Hemodialysis 1000 Other: Voiding Method Indwelling Catheter Indwelling Catheter ABP, PAP, CO, CI - Last Documented Arterial Blood Pressure 129/52 - Labs CBC & Chem 7: 03/30/20 05:00 03/30/20 05:00 Labs: Abnormal Lab Results - Last 24 Hours (Table) 03/29/20 03/29/20 03/29/20 Range/Units 04:05 04:05 04:05 RBC (4.30-5.90) m/uL Hgb (13.0-17.5) gm/dL Hct (39.0-53.0) % Lymphocytes # (1.0-4.8) k/uL APTT >200.0 H* (22.0-30.0) sec ABG pO2 (83-108) mmHg Sodium 136 L (137-145) mmol/L Potassium (3.5-5.1) mmol/L Chloride 97 L (98-107) mmol/L Carbon Dioxide 21 L (22-30) mmol/L BUN 92 H (9-20) mg/dL Creatinine 6.52 H (0.66-1.25) mg/dL Glucose 186 H (74-99) mg/dL POC Glucose (mg/dL) (75-99) mg/dL Calcium 7.5 L (8.4-10.2) mg/dL Phosphorus 11.7 H* (2.5-4.5) mg/dL Total Bilirubin (0.2-1.3) mg/dL AST 99 H (17-59) U/L ALT 96 H (4-49) U/L Alkaline Phosphatase 160 H (38-126) U/L Total Protein 5.3 L (6.3-8.2) g/dL Albumin 2.5 L (3.5-5.0) g/dL 03/29/20 03/29/20 03/29/20 Range/Units 09:13 09:15 10:44 RBC (4.30-5.90) m/uL Hgb (13.0-17.5) gm/dL Hct (39.0-53.0) % Lymphocytes # (1.0-4.8) k/uL APTT 43.4 H (22.0-30.0) sec ABG pO2 (83-108) mmHg Sodium (137-145) mmol/L Potassium (3.5-5.1) mmol/L Chloride (98-107) mmol/L Carbon Dioxide (22-30) mmol/L BUN (9-20) mg/dL Creatinine (0.66-1.25) mg/dL Glucose (74-99) mg/dL POC Glucose (mg/dL) 171 H 152 H (75-99) mg/dL Calcium (8.4-10.2) mg/dL Phosphorus (2.5-4.5) mg/dL Total Bilirubin (0.2-1.3) mg/dL AST (17-59) U/L ALT (4-49) U/L Alkaline Phosphatase (38-126) U/L Total Protein (6.3-8.2) g/dL Albumin (3.5-5.0) g/dL 03/29/20 03/29/20 03/29/20 Range/Units 11:38 12:57 14:10 RBC (4.30-5.90) m/uL Hgb (13.0-17.5) gm/dL Hct (39.0-53.0) % Lymphocytes # (1.0-4.8) k/uL APTT (22.0-30.0) sec ABG pO2 (83-108) mmHg Sodium (137-145) mmol/L Potassium (3.5-5.1) mmol/L Chloride (98-107) mmol/L Carbon Dioxide (22-30) mmol/L BUN (9-20) mg/dL Creatinine (0.66-1.25) mg/dL Glucose (74-99) mg/dL POC Glucose (mg/dL) 131 H 137 H 126 H (75-99) mg/dL Calcium (8.4-10.2) mg/dL Phosphorus (2.5-4.5) mg/dL Total Bilirubin (0.2-1.3) mg/dL AST (17-59) U/L ALT (4-49) U/L Alkaline Phosphatase (38-126) U/L Total Protein (6.3-8.2) g/dL Albumin (3.5-5.0) g/dL 03/29/20 03/29/20 03/29/20 Range/Units 15:27 16:29 17:24 RBC (4.30-5.90) m/uL Hgb (13.0-17.5) gm/dL Hct (39.0-53.0) % Lymphocytes # (1.0-4.8) k/uL APTT (22.0-30.0) sec ABG pO2 (83-108) mmHg Sodium (137-145) mmol/L Potassium (3.5-5.1) mmol/L Chloride (98-107) mmol/L Carbon Dioxide (22-30) mmol/L BUN (9-20) mg/dL Creatinine (0.66-1.25) mg/dL Glucose (74-99) mg/dL POC Glucose (mg/dL) 143 H 148 H 151 H (75-99) mg/dL Calcium (8.4-10.2) mg/dL Phosphorus (2.5-4.5) mg/dL Total Bilirubin (0.2-1.3) mg/dL AST (17-59) U/L ALT (4-49) U/L Alkaline Phosphatase (38-126) U/L Total Protein (6.3-8.2) g/dL Albumin (3.5-5.0) g/dL 03/29/20 03/29/20 03/29/20 Range/Units 18:54 20:14 22:00 RBC (4.30-5.90) m/uL Hgb (13.0-17.5) gm/dL Hct (39.0-53.0) % Lymphocytes # (1.0-4.8) k/uL APTT (22.0-30.0) sec ABG pO2 (83-108) mmHg Sodium (137-145) mmol/L Potassium (3.5-5.1) mmol/L Chloride (98-107) mmol/L Carbon Dioxide (22-30) mmol/L BUN (9-20) mg/dL Creatinine (0.66-1.25) mg/dL Glucose (74-99) mg/dL POC Glucose (mg/dL) 142 H 141 H 140 H (75-99) mg/dL Calcium (8.4-10.2) mg/dL Phosphorus (2.5-4.5) mg/dL Total Bilirubin (0.2-1.3) mg/dL AST (17-59) U/L ALT (4-49) U/L Alkaline Phosphatase (38-126) U/L Total Protein (6.3-8.2) g/dL Albumin (3.5-5.0) g/dL 03/30/20 03/30/20 03/30/20 Range/Units 00:56 03:12 04:43 RBC (4.30-5.90) m/uL Hgb (13.0-17.5) gm/dL Hct (39.0-53.0) % Lymphocytes # (1.0-4.8) k/uL APTT (22.0-30.0) sec ABG pO2 113 H (83-108) mmHg Sodium (137-145) mmol/L Potassium (3.5-5.1) mmol/L Chloride (98-107) mmol/L Carbon Dioxide (22-30) mmol/L BUN (9-20) mg/dL Creatinine (0.66-1.25) mg/dL Glucose (74-99) mg/dL POC Glucose (mg/dL) 139 H 144 H (75-99) mg/dL Calcium (8.4-10.2) mg/dL Phosphorus (2.5-4.5) mg/dL Total Bilirubin (0.2-1.3) mg/dL AST (17-59) U/L ALT (4-49) U/L Alkaline Phosphatase (38-126) U/L Total Protein (6.3-8.2) g/dL Albumin (3.5-5.0) g/dL 03/30/20 03/30/20 03/30/20 Range/Units 05:00 05:00 05:05 RBC 3.33 L (4.30-5.90) m/uL Hgb 10.9 L (13.0-17.5) gm/dL Hct 31.6 L (39.0-53.0) % Lymphocytes # 0.2 L (1.0-4.8) k/uL APTT (22.0-30.0) sec ABG pO2 (83-108) mmHg Sodium 131 L (137-145) mmol/L Potassium 5.8 H (3.5-5.1) mmol/L Chloride 97 L (98-107) mmol/L Carbon Dioxide 18 L (22-30) mmol/L BUN 100 H (9-20) mg/dL Creatinine 5.50 H (0.66-1.25) mg/dL Glucose 160 H (74-99) mg/dL POC Glucose (mg/dL) 164 H (75-99) mg/dL Calcium 7.6 L (8.4-10.2) mg/dL Phosphorus (2.5-4.5) mg/dL Total Bilirubin 1.4 H (0.2-1.3) mg/dL AST 76 H (17-59) U/L ALT 81 H (4-49) U/L Alkaline Phosphatase 135 H (38-126) U/L Total Protein 4.3 L (6.3-8.2) g/dL Albumin 2.1 L (3.5-5.0) g/dL 03/30/20 03/30/20 Range/Units 05:54 06:52 RBC (4.30-5.90) m/uL Hgb (13.0-17.5) gm/dL Hct (39.0-53.0) % Lymphocytes # (1.0-4.8) k/uL APTT (22.0-30.0) sec ABG pO2 (83-108) mmHg Sodium (137-145) mmol/L Potassium (3.5-5.1) mmol/L Chloride (98-107) mmol/L Carbon Dioxide (22-30) mmol/L BUN (9-20) mg/dL Creatinine (0.66-1.25) mg/dL Glucose (74-99) mg/dL POC Glucose (mg/dL) 155 H 155 H (75-99) mg/dL Calcium (8.4-10.2) mg/dL Phosphorus (2.5-4.5) mg/dL Total Bilirubin (0.2-1.3) mg/dL AST (17-59) U/L ALT (4-49) U/L Alkaline Phosphatase (38-126) U/L Total Protein (6.3-8.2) g/dL Albumin (3.5-5.0) g/dL Microbiology - Last 24 Hours (Table) 03/24/20 11:19 Blood Culture - Preliminary Blood No Growth after 120 hours 03/24/20 09:08 Blood Culture - Preliminary Blood No Growth after 120 hours Assessment and Plan Plan: Assessment: 1. Acute kidney injury secondary to ATN secondary to septic shock. Currently hemodialysis dependent. Oliguric. 2. Septic shock most likely secondary to pneumonia maintained on antibiotics. 3. Volume overload. 4. Metabolic acidosis secondary to acute kidney injury. 5. Hyperphosphatemia secondary to acute kidney injury maintained on PhosLo. 6. Hyperkalemia secondary to acute kidney injury and metabolic acidosis. Plan: Hemodialysis today with ultrafiltration as tolerated. Wean FiO2. Hep-Lock IV fluids. Continue to monitor for renal recovery. Continue to assess daily for need for renal replacement therapy. Add oral sodium bicarbonate. Low potassium tube feeds.
[2020-03-30] MEDS ORDERED: CISATRACURIUM 2 MG/ML 5 ML VIAL IV ONE (08:22)
[2020-03-30] MEDS: SODIUM BICARBONATE TAB 650 MG TAB PO SCH ×2 (08:40→20:05)
[2020-03-30] MEDS: ATORVASTATIN 40 MG TAB PO SCH (08:40)
[2020-03-30] MEDS: CHLORHEXIDINE GLUCONATE 15 ML CUP MUCOUS MEM SCH ×2 (08:40→20:05)
[2020-03-30] MEDS: PANTOPRAZOLE 40 MG/10 ML VIAL IVP SCH ×2 (08:40→20:05)
[2020-03-30] MEDS: PIPERACILLIN-TAZOBACTAM 3.375 GM in SODIUM CHLORIDE 0.9% 100 ML IVPB SCH ×2 (08:41→20:05)
[2020-03-30 08:44] LABS: Glucose,Whole Blood 145 mg/dL (75-99)
[2020-03-30] MEDS: ASPIRIN 81 MG PO SCH (08:48)
--- NOTE | 2020-03-30 08:51 | P.PN ---
Subjective Progress Note Date: 03/30/20 Principal diagnosis: Acute sepsis, septic shock, and pneumonia This is a 70-year-old white male with history of hypertension and underlying coronary artery disease, patient was admitted yesterday with intermittent episodes of chest pains, pleuritic in nature, associated with dry cough, fever, chills, and diaphoresis for almost one week. Patient was initially seen in the ER on 03/21/2020, and he was discharged home in stable condition. His workup was basically nondiagnostic. And his chest x-ray was normal. The week prior to his presentation, patient shot a coyote, and he had to drag the coyote about 3-4 miles. Apparently he started having chest pain at the time of dragging the coyote, and his pain resolved as he rested. Over the following week, patient has been experiencing diffuse chest discomfort with deep inspiration, had no radiation of the pain, he had mostly intermittent episodes of cough, fever, chills, and that is when he came to the ER. Again patient was admitted on 03/22/2020, CT angiogram of the chest was done, and it was basically normal. There was no evidence of pulmonary embolism, no evidence of infiltrate, minimal left basilar atelectasis was noted. Chest x-ray upon admission was also normal. Patient was seen by cardiology on consultation on 03/22/2020, felt that the pain was atypical, pleuritic in nature, however there was a concern based on the consultation about his leukocytosis with fever and the casting associate was concerned about underlying infectious process. His temperature upon admission was ranging between 100 and 103. Patient was treated empirically with antibiotics in the form of Rocephin and Zithromax, however this morning patient was transferred to the ICU mostly because of worsening shortness of breath, worsening chest x-ray, hypotension, patient was placed on BiPAP, however he remained marginal and his overall pulmonary status, and upon my evaluation in the ICU, patient clearly needed to be intubated and placed on mechanical ventilation as he was clearly hypotensive, febrile, and he was also noted to have very marginal O2 saturation on 100% BiPAP. Discussed with the patient the need for intubation mechanical ventilation, he agreed, and the patient was intubated and placed on mechanical ventilation. Patient required also placement on norepinephrine, vasopressin, and his antibiotics coverage was broadened. Cardiology was asked to reevaluate him because of his increased troponin and his increase BNP level. Chest x-ray showed initially evidence of interstitial edema and possible underlying pneumonia. Post intubation, follow-up chest x-ray showed cardiomegaly, possible multifocal bilateral opacities a greater in the mid and lower lungs. Hence we'll broaden the spectrum of his antibiotics cover age, and the patient required to be placed on high FiO2, required high PEEP, and follow-up ABG done showed a pO2 of 71 pCO2 of 39 pH of 7.27 and this was on 100% FiO2, and PEEP of 10. Reevaluated today on 03/25/2020, patient remains in the ICU, intubated and mechanically ventilated. He is now on FiO2 of 80% assist control rate of 26, tidal volume is 450, PEEP at 12, however after reviewing his follow-up ABG this morning 2, I was able to cut down his FiO2 down to 65%, and the PEEP was increased to 14. Patient is on propofol at 40 mcg/kg/m, IV fluid at 75 mL per hour, sodium bicarb drip at 50 ML per hour vasopressin at 0.03 units per minute. Is also on norepinephrine at 0.75 mcg/kg/m, and the Nimbex at 1.5. Patient is also on Dilaudid 0.5 mg every 2 hours around the clock. Patient was started on enteral feeding today. Antibiotics ramon he is on doxycycline, Levaquin, and Zosyn was added by infectious disease on the case. Pro-calcitonin level is on the rise, it is 73.94, this is extremely high level. WBC count is up to 43.6. C-reactive protein is 545 chest x-ray is showing worsening right lower lobe infiltrate. Small left pleural effusion, lines and catheters are in proper po sitions ABG today showed a pO2 of 88 pCO2 of 42 pH of 7.24, hence the patient will remain on 65% FiO2, PEEP of 14, otherwise remaining vent settings will be unchanged. He is on assist control rate of 26 and tidal volume is 450. Patient was seen by infectious disease on consultation, Zosyn was added empirically in addition to doxycycline and Levaquin. Enteral feeding will be started today on this patient, and this would be addressing his nutritional support. Patient remains on GI and DVT prophylaxis. Reevaluated today on 03/26/2020, patient remains in the ICU, intubated and mechanically ventilated. He is on assist control rate of 26, volume is 450 FiO2 is 60% PEEP is 14, ABG showed a pO2 of 90 pCO2 of 39 pH of 7.26, hence his sodium bicarb drip was increased and his FiO2 was decreased down to 50% however The PEEP at 14. Patient remains on multiple drips including bicarb drip at 75 m L per hour, Nimbex at 1.5 mcg/kg/m, propofol at 50 mcg/kg/m, norepinephrine at 0.6 mcg/kg/m. Patient is not making much urine, his chest x-ray is showing slight improvement in his right lower lobe pneumonia. However obviously the patient remains quite ill, and septic requiring multiple pressors including norepinephrine and vasopressin. Considering the deterioration in his renal status, patient is definitely heading towards hemodialysis, and we'll consult vascular surgery for a dialysis catheter placement. The meantime the patient remains on Levaquin, doxycycline, Zosyn, cultures so far are nondiagnostic including blood cultures and sputum cultures. Yesterday the patient was also started on Solu-Medrol, he had significant leukocytosis yesterday, improving, and repeat pro-calcitonin level is pending. Patient was given yesterday 80 mg of Lasix, hardly any response. Patient remains on enteral feeding. Slight distention of the abdomen was noted today, but x-rays of the abdomen were nondiagnostic of obstruction. WBC count today is 16.8 hemoglobin is 13. Continues to have significant neutrophilia, electrolytes are normal except bicarb remains low at 15. Liver enzymes/transaminases were noted to be a bit elevated. Likely consistent with shocked liver. White count today is 16.8 compared to 43.6 yesterday. Reevaluated today on 03/27/2020, patient remains in the ICU, intubated and mechanically ventilated. Patient is on the same ventilator settings assist control rate of 26 tidal volume is 450 FiO2 50% and PEEP of 14. Remains on multiple drips including vasopressin at 0.03 units per minute, norepinephrine was increased yesterday to 0.17 mcg/kg/m. Nimbex 1.5 mcg/kg/m. Propofol 40 mcg/kg/m. Bicarb drip 75 ML per hour. Patient remains on enteral feeding, however considering that the patient is developing high residual and some abdominal distention, I did recommend holding feeding and intermittent suction on the nasogastric tube. I also plan to discontinue Nimbex today, and replace it with fentanyl. The patient on the same ventilator settings except increase the flow rate to 70 L/m. I have also recommended surgical evaluation for his abdominal distention. X-rays of the abdomen are nondiagnostic. Patient is not stable enough to go down for CT of the abdomen and pelvis at this point considering he is requiring significant amount of pressors. Patient will be seen by nephrology today, and will likely undergo dialysis. Sodium bicarb was given. Nimbex would be discontinued, and bicarb will be given for his metabolic acidosis. Antibiotics remained the same. Chest x-ray is showing definite improvement, but that is not reflected on his oxygenation much. Cultures including blood cultures, sputum cultures are nondiagnostic so far. His sugars are running high, and I will recommend insulin drip on this patient. WBC count today is 10.2 hemoglobin is 11.3. ABG showed a pO2 of 74 pH of 7.26 pCO2 is 41. WBC count is 10.2 hemoglobin is 11.3. Renal profile is much worse today, BUN is 93 creatinine 7.02. Electrolytes are normal bicarb remains low at 16. Reevaluated today on 03/28/2020, patient remains in the ICU, intubated and mechanically ventilated. Remains on the same ventilator settings, assist control rate of 26 tidal volume is 450 FiO2 50% PEEP of 14. ABG showed a pO2 of 89 pCO2 of 34 pH of 7.41, hence no change was made in the ventilator settings. However I noticed some leak around the endotracheal tube, and recommended respir atory to have more air in the cough, and adjustment of the endotracheal tube placement. Patient is on multiple drips including fentanyl 0.25 mcg/kg/h, norepinephrine is at 0.05 mcg/kg/m. Propofol at 60 mcg/kg/m. Heparin drip, insulin 5 units per hour drip, and bicarb drip at 75 mL per hour. Patient is back on enteral feeding since he responded well to lactulose, and had multiple bowel movements now he has a fecal management system. In place. Patient went into atrial fibrillation around 4:30 AM, however his rate seems to be fairly well controlled, and basically on heparin only. Underwent SLED yesterday, and was tolerated, 200 mL oFF. Chest x-ray continues to show bilateral interstitial infiltrates, consistent with ARDS. Although the possibility of interstitial edema/fluid overload secondary to renal failure and oliguria. Is not entirely ruled out. Microbiology from sputum and blood remains nondiagnostic. titer for Francisella is pending. CBC is normal WBC count is 7.6 hemoglobin is 10.8. PTT is 53.3. Liver enzymes remain slightly elevated. Repeat pro-calcitonin is pending. Urine Legionella antigen is negative On 03/29/2020 patient seen in follow-up in the intensive care unit, patient remains sedated, and intubated on mechanical ventilator current vent settings are assist control mode of ventilation with a rate of 26, tidal -450, FiO2 of 50% and PEEP of 14 this morning blood gases were reviewed showing pO2 112, pCO2 39 pH of 7.39 and subsequently FiO2 was dropped down to 45%. Is on multiple IV was including 0.9 normal saline at rate of 50 ML per hour, fentanyl at 0.5 mcg/kg/h, insulin at 3 units per hour, Diprivan is at 65 mics per kilogram per minute, levophed is at 4 mics per minute. Patient's tube feedings have been on hold since yesterday related to episode of coffee-ground emesis. Today's hemoglobin is 10.9, white blood cell count of 7.9, significantly improved from a few days ago, PTT is 43.4, sodium is 136, potassium is 5.1, CO2 is 21, chloride is 97, B1 is 92, creatinine is 6.52, patient had hemodialysis treatment yesterday and 1 L of fluid was removed. Nephrology is following, and patient is anticipated to have hemodialysis with ultrafiltration. Today's chest x-ray shows cardiomegaly with bilateral lower lung multifocal acute infiltrates and/or atelectasis and small bilateral pleural effusions and bilateral central vascular congestion. Patient also appears to be generally fluid overloaded. Vasopressor requirements have significantly improved from a few days ago. Blood and sputum cultures have shown no growth thus far. Continue urine antigen was negative, influenza and COVID 19 PCR were negative, awaiting results of the Francisella tularensis antibody test On 03/30/2020 patient seen in follow-up in the intensive care unit, he remains sedated and intubated on mechanical ventilator current vent settings are assist control mode of ventilation with a rate of 26, tidal volumes 450 FiO2 45% and PEEP of 14. This morning his blood gases have been reviewed showing pO2 of 113, pCO2 of 36 and pH of 7.38. PEEP was then dropped to 10. Patient IVs include 0.9 normal saline at a rate of 50 ML per hour, Diprivan is a 65 mics per kilo per minute, fentanyl drip is 0.5 mics per kilo per minute, insulin drip is at 3 units per hour. Tube feedings in the form of vital high-protein at a rate of 12 mL an hour, and the goal is 12. Today's labs have been reviewed, pro-calcitonin has improved although still significantly elevated at 59.06, cultures have been reviewed including blood and sputum cultures, and remain negative thus far, patient remains on doxycycline, Levaquin, and Zosyn, ID service is following. White blood cell count is 6.3, hemoglobin is 10.9, sodium is 131, potassium is 5.8, chloride is 97, CO2 is 18, B1 is 100, and creatinine is 5.5. Remains in anuric, he had hemodialysis yesterday with removal of 1 L of fluid. Today's chest x-ray has been reviewed showing improving right lower lobe infiltrate. No acute events overnight, patient has not had any further bleeding, tolerating tube feedings well. Has been afebrile. Not requiring any vasopressor support. Objective - Vital Signs Vital signs: Vital Signs Temp 98.7 F 03/30/20 04:00 Pulse 66 03/30/20 07:50 Resp 26 H 03/30/20 07:00 BP 124/67 03/30/20 07:00 Pulse Ox 95 03/30/20 07:00 Intake & Output 03/29/20 03/30/20 03/30/20 18:59 06:59 18:59 Intake Total 0796.775 4910.998 84.803 Output Total 1255 10 0 Balance 682.336 8702.998 84.803 Weight 116.6 kg 117.5 kg Intake: IV 392 272 6 0.9 NACL 20 Dextrose 5% in Water 1, 75 000 ml @ 50 mls/hr IV . Q23H ADAM with Sodium Bicarb (1 Meq/ml) 150 ml Rx#:[id number] Doxycycline 100 mg In 100 100 Sodium Chloride 0.9% 100 ml @ 100 mls/hr IVPB Q12HR ADAM Rx#:[id number] Piperacillin-Tazobactam 3 125 100 .375 gm In Sodium Chloride 0.9% 100 ml @ 25 mls/hr IVPB Q12HR ADAM Rx #:[id number] Pressure bag 72 72 6 Intake, IV Titration 1037.221 919.998 66.803 Amount Insulin Regular 100 unit 18.550 30.048 In Sodium Chloride 0.9% 100 ml @ Per Protocol IV .Q0M ADAM Rx#:[id number] Norepinephrine 32 mg In 14.565 Sodium Chloride 0.9% 218 ml @ 0.05 MCG/KG/MIN 2. 233 mls/hr IV .Q24H ADAM Rx#:[id number] Sodium Chloride 0.9% 1, 550 600 50 000 ml @ 50 mls/hr IV . Q20H ADAM Rx#:[id number] fentaNYL (PF) 1,000 mcg 66.801 58.168 In Sodium Chloride 0.9% 80 ml @ Per Protocol IV . Q0M ADAM Rx#:[id number] propofoL 500 mg In Empty 387.305 231.782 16.803 Bag 1 bag @ Titrate IV . Q0M ADAM Rx#:[id number] Tube Feeding 108 144 12 Other 30 90 Output: Urine 5 10 0 Stool 250 Hemodialysis 1000 Other: Voiding Method Indwelling Catheter Indwelling Catheter ABP, PAP, CO, CI - Last Documented Arterial Blood Pressure 129/52 - Exam GENERAL EXAM: Sedated, 70-year-old white male, intubated on mechanical ventilator on assist control mode of ventilation with FiO2 of 45% and PEEP of 14 comfortable in no apparent distress. HEAD: Normocephalic/atraumatic. EYES: Normal reaction of pupils, equal size. Conjunctiva pink, sclera white. NOSE: Clear with pink turbinates. THROAT: No erythema or exudates. NECK: No masses, no JVD, no thyroid enlargement, no adenopathy. CHEST: No chest wall deformity. Symmetrical expansion. LUNGS: Equal air entry with no crackles, wheeze, rhonchi or dullness. CVS: Regular rate and rhythm, normal S1 and S2, no gallops, no murmurs, no rubs ABDOMEN: Soft, nontender. No hepatosplenomegaly, normal bowel sounds, no guarding or rigidity. EXTREMITIES: No clubbing, no edema, no cyanosis, 2+ pulses and upper and lower extremities. MUSCULOSKELETAL: Muscle strength and tone normal. SPINE: No scoliosis or deformity SKIN: No rashes CENTRAL NERVOUS SYSTEM: Sedated and intubated. No focal deficits, tone is normal in all 4 extremities. - Labs CBC & Chem 7: 03/30/20 05:00 03/30/20 05:00 Labs: Abnormal Lab Results - Last 24 Hours (Table) 03/29/20 03/29/20 03/29/20 Range/Units 04:05 04:05 09:13 RBC (4.30-5.90) m/uL Hgb (13.0-17.5) gm/dL Hct (39.0-53.0) % Lymphocytes # (1.0-4.8) k/uL APTT (22.0-30.0) sec ABG pO2 (83-108) mmHg Sodium 136 L (137-145) mmol/L Potassium (3.5-5.1) mmol/L Chloride 97 L (98-107) mmol/L Carbon Dioxide 21 L (22-30) mmol/L BUN 92 H (9-20) mg/dL Creatinine 6.52 H (0.66-1.25) mg/dL Glucose 186 H (74-99) mg/dL POC Glucose (mg/dL) 171 H (75-99) mg/dL Calcium 7.5 L (8.4-10.2) mg/dL Phosphorus 11.7 H* (2.5-4.5) mg/dL Total Bilirubin (0.2-1.3) mg/dL AST 99 H (17-59) U/L ALT 96 H (4-49) U/L Alkaline Phosphatase 160 H (38-126) U/L Total Protein 5.3 L (6.3-8.2) g/dL Albumin 2.5 L (3.5-5.0) g/dL 03/29/20 03/29/20 03/29/20 Range/Units 09:15 10:44 11:38 RBC (4.30-5.90) m/uL Hgb (13.0-17.5) gm/dL Hct (39.0-53.0) % Lymphocytes # (1.0-4.8) k/uL APTT 43.4 H (22.0-30.0) sec ABG pO2 (83-108) mmHg Sodium (137-145) mmol/L Potassium (3.5-5.1) mmol/L Chloride (98-107) mmol/L Carbon Dioxide (22-30) mmol/L BUN (9-20) mg/dL Creatinine (0.66-1.25) mg/dL Glucose (74-99) mg/dL POC Glucose (mg/dL) 152 H 131 H (75-99) mg/dL Calcium (8.4-10.2) mg/dL Phosphorus (2.5-4.5) mg/dL Total Bilirubin (0.2-1.3) mg/dL AST (17-59) U/L ALT (4-49) U/L Alkaline Phosphatase (38-126) U/L Total Protein (6.3-8.2) g/dL Albumin (3.5-5.0) g/dL 03/29/20 03/29/20 03/29/20 Range/Units 12:57 14:10 15:27 RBC (4.30-5.90) m/uL Hgb (13.0-17.5) gm/dL Hct (39.0-53.0) % Lymphocytes # (1.0-4.8) k/uL APTT (22.0-30.0) sec ABG pO2 (83-108) mmHg Sodium (137-145) mmol/L Potassium (3.5-5.1) mmol/L Chloride (98-107) mmol/L Carbon Dioxide (22-30) mmol/L BUN (9-20) mg/dL Creatinine (0.66-1.25) mg/dL Glucose (74-99) mg/dL POC Glucose (mg/dL) 137 H 126 H 143 H (75-99) mg/dL Calcium (8.4-10.2) mg/dL Phosphorus (2.5-4.5) mg/dL Total Bilirubin (0.2-1.3) mg/dL AST (17-59) U/L ALT (4-49) U/L Alkaline Phosphatase (38-126) U/L Total Protein (6.3-8.2) g/dL Albumin (3.5-5.0) g/dL 03/29/20 03/29/20 03/29/20 Range/Units 16:29 17:24 18:54 RBC (4.30-5.90) m/uL Hgb (13.0-17.5) gm/dL Hct (39.0-53.0) % Lymphocytes # (1.0-4.8) k/uL APTT (22.0-30.0) sec ABG pO2 (83-108) mmHg Sodium (137-145) mmol/L Potassium (3.5-5.1) mmol/L Chloride (98-107) mmol/L Carbon Dioxide (22-30) mmol/L BUN (9-20) mg/dL Creatinine (0.66-1.25) mg/dL Glucose (74-99) mg/dL POC Glucose (mg/dL) 148 H 151 H 142 H (75-99) mg/dL Calcium (8.4-10.2) mg/dL Phosphorus (2.5-4.5) mg/dL Total Bilirubin (0.2-1.3) mg/dL AST (17-59) U/L ALT (4-49) U/L Alkaline Phosphatase (38-126) U/L Total Protein (6.3-8.2) g/dL Albumin (3.5-5.0) g/dL 03/29/20 03/29/20 03/30/20 Range/Units 20:14 22:00 00:56 RBC (4.30-5.90) m/uL Hgb (13.0-17.5) gm/dL Hct (39.0-53.0) % Lymphocytes # (1.0-4.8) k/uL APTT (22.0-30.0) sec ABG pO2 (83-108) mmHg Sodium (137-145) mmol/L Potassium (3.5-5.1) mmol/L Chloride (98-107) mmol/L Carbon Dioxide (22-30) mmol/L BUN (9-20) mg/dL Creatinine (0.66-1.25) mg/dL Glucose (74-99) mg/dL POC Glucose (mg/dL) 141 H 140 H 139 H (75-99) mg/dL Calcium (8.4-10.2) mg/dL Phosphorus (2.5-4.5) mg/dL Total Bilirubin (0.2-1.3) mg/dL AST (17-59) U/L ALT (4-49) U/L Alkaline Phosphatase (38-126) U/L Total Protein (6.3-8.2) g/dL Albumin (3.5-5.0) g/dL 03/30/20 03/30/20 03/30/20 Range/Units 03:12 04:43 05:00 RBC 3.33 L (4.30-5.90) m/uL Hgb 10.9 L (13.0-17.5) gm/dL Hct 31.6 L (39.0-53.0) % Lymphocytes # 0.2 L (1.0-4.8) k/uL APTT (22.0-30.0) sec ABG pO2 113 H (83-108) mmHg Sodium (137-145) mmol/L Potassium (3.5-5.1) mmol/L Chloride (98-107) mmol/L Carbon Dioxide (22-30) mmol/L BUN (9-20) mg/dL Creatinine (0.66-1.25) mg/dL Glucose (74-99) mg/dL POC Glucose (mg/dL) 144 H (75-99) mg/dL Calcium (8.4-10.2) mg/dL Phosphorus (2.5-4.5) mg/dL Total Bilirubin (0.2-1.3) mg/dL AST (17-59) U/L ALT (4-49) U/L Alkaline Phosphatase (38-126) U/L Total Protein (6.3-8.2) g/dL Albumin (3.5-5.0) g/dL 03/30/20 03/30/20 03/30/20 Range/Units 05:00 05:05 05:54 RBC (4.30-5.90) m/uL Hgb (13.0-17.5) gm/dL Hct (39.0-53.0) % Lymphocytes # (1.0-4.8) k/uL APTT (22.0-30.0) sec ABG pO2 (83-108) mmHg Sodium 131 L (137-145) mmol/L Potassium 5.8 H (3.5-5.1) mmol/L Chloride 97 L (98-107) mmol/L Carbon Dioxide 18 L (22-30) mmol/L BUN 100 H (9-20) mg/dL Creatinine 5.50 H (0.66-1.25) mg/dL Glucose 160 H (74-99) mg/dL POC Glucose (mg/dL) 164 H 155 H (75-99) mg/dL Calcium 7.6 L (8.4-10.2) mg/dL Phosphorus (2.5-4.5) mg/dL Total Bilirubin 1.4 H (0.2-1.3) mg/dL AST 76 H (17-59) U/L ALT 81 H (4-49) U/L Alkaline Phosphatase 135 H (38-126) U/L Total Protein 4.3 L (6.3-8.2) g/dL Albumin 2.1 L (3.5-5.0) g/dL 03/30/20 Range/Units 06:52 RBC (4.30-5.90) m/uL Hgb (13.0-17.5) gm/dL Hct (39.0-53.0) % Lymphocytes # (1.0-4.8) k/uL APTT (22.0-30.0) sec ABG pO2 (83-108) mmHg Sodium (137-145) mmol/L Potassium (3.5-5.1) mmol/L Chloride (98-107) mmol/L Carbon Dioxide (22-30) mmol/L BUN (9-20) mg/dL Creatinine (0.66-1.25) mg/dL Glucose (74-99) mg/dL POC Glucose (mg/dL) 155 H (75-99) mg/dL Calcium (8.4-10.2) mg/dL Phosphorus (2.5-4.5) mg/dL Total Bilirubin (0.2-1.3) mg/dL AST (17-59) U/L ALT (4-49) U/L Alkaline Phosphatase (38-126) U/L Total Protein (6.3-8.2) g/dL Albumin (3.5-5.0) g/dL Microbiology - Last 24 Hours (Table) 03/24/20 11:19 Blood Culture - Preliminary Blood No Growth after 120 hours 03/24/20 09:08 Blood Culture - Preliminary Blood No Growth after 120 hours Assessment and Plan Plan: Assessment: #1. 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 Titers for Francisella are pending. Sputum cultures and blood cultures are negative, Legionella urine antigen was negative. Influenza and COVID 19 PCR were negative. He is covered with a combination of Levaquin, Zosyn and doxycycline. #2. Acute septic shock requiring pressors in the form of norepinephrine, patient was weaned off the vasopressin yesterday #3. Acute ARDS secondary to pneumonia and sepsis #4. Acute kidney injury suspect acute tubular necrosis from hypotension and septic shock, requiring hemodialysis and ultrafiltration #5. Acute diastolic congestive heart failure. Echocardiogram showed no evidence of LV dysfunction and no evidence of pericardial effusion #6. History of underlying coronary artery disease #7. History of hypertension #8. Multiorgan system failure secondary to sepsis and septic shock #9. Ex-smoker #10. New-onset atrial fibrillation, rate is controlled, heparin drip is currently on hold related to episode of coffee-ground emesis, patient is currently back into sinus rhythm with a first-degree AV block #11. Acute ileus, resolved #12. Episode of coffee-ground emesis, hemoglobin is stable at 10.9 Plan: Continue antibiotics per ID service recommendations, still awaiting Francisella titers, blood and sputum cultures remain negative thus far, hemodynamically stable, not requiring any vasopressor support, FiO2 is down to 45%, will drop the PEEP down to 10 cm of water. Patient will have another hemodialysis with ultrafiltration today. We will plan on bronchoscopy with bronchoalveolar lavage of the right lower lobe today. We'll resume tube feedings after the bronchoscopy. May attempt DIS possibly later on today. We will consult with cardiology in regards to anticoagulation, patient has not had recurrence of coffee-ground emesis. Tolerating tube feedings. I performed a history & physical examination of the patient and discussed their management with my nurse practitioner, Rosanna Fields. I reviewed the nurse practitioner's note and agree with the documented findings and plan of care. Lung sounds are positive for diminished breath sounds. The findings and the impression was discussed with the patient. I attest to the documentation by the nurse practitioner. Time with Patient: Greater than 30
--- NOTE | 2020-03-30 10:28 | P.PN ---
Subjective Progress Note Date: 03/30/20 Principal diagnosis: Acute hypoxic respiratory failure Patient is sedated and intubated. He has been off of pressors since yesterday around 4 PM. His blood pressure is borderline low. He is currently getting dialysis. He has been getting ultrafiltration for the last 2 days. flight technician informed me that plan today is to remove 2 L if possible. Patient is tolerating tube feeds at the lower rate. No acute events overnight reported by nursing staff. He is still on insulin drip with blood glucose generally less than 180 Objective - Vital Signs Vital signs: Vital Signs Temp 98.2 F 03/30/20 08:00 Pulse 64 03/30/20 10:00 Resp 26 H 03/30/20 10:00 BP 115/56 03/30/20 10:00 Pulse Ox 96 03/30/20 10:00 Intake & Output 03/29/20 03/30/20 03/30/20 18:59 06:59 18:59 Intake Total 2676.300 2259.998 410.881 Output Total 1255 10 0 Balance 135.020 9433.998 410.881 Weight 116.6 kg 117.5 kg Intake: IV 392 272 154 0.9 NACL 20 30 Dextrose 5% in Water 1, 75 000 ml @ 50 mls/hr IV . Q23H ADAM with Sodium Bicarb (1 Meq/ml) 150 ml Rx#:[id number] Doxycycline 100 mg In 100 100 Sodium Chloride 0.9% 100 ml @ 100 mls/hr IVPB Q12HR ADAM Rx#:[id number] Piperacillin-Tazobactam 3 125 100 100 .375 gm In Sodium Chloride 0.9% 100 ml @ 25 mls/hr IVPB Q12HR ADAM Rx #:[id number] Pressure bag 72 72 24 Intake, IV Titration 1037.221 919.998 148.881 Amount Insulin Regular 100 unit 18.550 30.048 In Sodium Chloride 0.9% 100 ml @ Per Protocol IV .Q0M ADAM Rx#:[id number] Norepinephrine 32 mg In 14.565 Sodium Chloride 0.9% 218 ml @ 0.05 MCG/KG/MIN 2. 233 mls/hr IV .Q24H ADAM Rx#:[id number] Sodium Chloride 0.9% 1, 550 600 50 000 ml @ 50 mls/hr IV . Q20H ADAM Rx#:[id number] fentaNYL (PF) 1,000 mcg 66.801 58.168 In Sodium Chloride 0.9% 80 ml @ Per Protocol IV . Q0M ADAM Rx#:[id number] propofoL 500 mg In Empty 387.305 231.782 98.881 Bag 1 bag @ Titrate IV . Q0M ADAM Rx#:[id number] Tube Feeding 108 144 48 Other 30 90 60 Output: Urine 5 10 0 Stool 250 Hemodialysis 1000 Other: Voiding Method Indwelling Catheter Indwelling Catheter Indwelling Catheter ABP, PAP, CO, CI - Last Documented Arterial Blood Pressure 101/45 - Exam General: The patient is sedated and intubated Eye: there is normal conjunctiva bilaterally. Neck: The neck is supple, there is no JVD. Cardiovascular: Normal S1-S2, no S3-S4, no murmurs. Respiratory: Lungs mechanical ventilator sounds Gastrointestinal: Abdomen is soft, nontender, slightly distended Musculoskeletal: There is no pedal edema. Skin: Skin is warm and dry - Labs CBC & Chem 7: 03/30/20 05:00 03/30/20 05:00 Labs: Abnormal Lab Results - Last 24 Hours (Table) 03/29/20 03/29/20 03/29/20 Range/Units 10:44 11:38 12:57 RBC (4.30-5.90) m/uL Hgb (13.0-17.5) gm/dL Hct (39.0-53.0) % Lymphocytes # (1.0-4.8) k/uL ABG pO2 (83-108) mmHg Sodium (137-145) mmol/L Potassium (3.5-5.1) mmol/L Chloride (98-107) mmol/L Carbon Dioxide (22-30) mmol/L BUN (9-20) mg/dL Creatinine (0.66-1.25) mg/dL Glucose (74-99) mg/dL POC Glucose (mg/dL) 152 H 131 H 137 H (75-99) mg/dL Calcium (8.4-10.2) mg/dL Total Bilirubin (0.2-1.3) mg/dL AST (17-59) U/L ALT (4-49) U/L Alkaline Phosphatase (38-126) U/L Total Protein (6.3-8.2) g/dL Albumin (3.5-5.0) g/dL 03/29/20 03/29/20 03/29/20 Range/Units 14:10 15:27 16:29 RBC (4.30-5.90) m/uL Hgb (13.0-17.5) gm/dL Hct (39.0-53.0) % Lymphocytes # (1.0-4.8) k/uL ABG pO2 (83-108) mmHg Sodium (137-145) mmol/L Potassium (3.5-5.1) mmol/L Chloride (98-107) mmol/L Carbon Dioxide (22-30) mmol/L BUN (9-20) mg/dL Creatinine (0.66-1.25) mg/dL Glucose (74-99) mg/dL POC Glucose (mg/dL) 126 H 143 H 148 H (75-99) mg/dL Calcium (8.4-10.2) mg/dL Total Bilirubin (0.2-1.3) mg/dL AST (17-59) U/L ALT (4-49) U/L Alkaline Phosphatase (38-126) U/L Total Protein (6.3-8.2) g/dL Albumin (3.5-5.0) g/dL 03/29/20 03/29/20 03/29/20 Range/Units 17:24 18:54 20:14 RBC (4.30-5.90) m/uL Hgb (13.0-17.5) gm/dL Hct (39.0-53.0) % Lymphocytes # (1.0-4.8) k/uL ABG pO2 (83-108) mmHg Sodium (137-145) mmol/L Potassium (3.5-5.1) mmol/L Chloride (98-107) mmol/L Carbon Dioxide (22-30) mmol/L BUN (9-20) mg/dL Creatinine (0.66-1.25) mg/dL Glucose (74-99) mg/dL POC Glucose (mg/dL) 151 H 142 H 141 H (75-99) mg/dL Calcium (8.4-10.2) mg/dL Total Bilirubin (0.2-1.3) mg/dL AST (17-59) U/L ALT (4-49) U/L Alkaline Phosphatase (38-126) U/L Total Protein (6.3-8.2) g/dL Albumin (3.5-5.0) g/dL 03/29/20 03/30/20 03/30/20 Range/Units 22:00 00:56 03:12 RBC (4.30-5.90) m/uL Hgb (13.0-17.5) gm/dL Hct (39.0-53.0) % Lymphocytes # (1.0-4.8) k/uL ABG pO2 (83-108) mmHg Sodium (137-145) mmol/L Potassium (3.5-5.1) mmol/L Chloride (98-107) mmol/L Carbon Dioxide (22-30) mmol/L BUN (9-20) mg/dL Creatinine (0.66-1.25) mg/dL Glucose (74-99) mg/dL POC Glucose (mg/dL) 140 H 139 H 144 H (75-99) mg/dL Calcium (8.4-10.2) mg/dL Total Bilirubin (0.2-1.3) mg/dL AST (17-59) U/L ALT (4-49) U/L Alkaline Phosphatase (38-126) U/L Total Protein (6.3-8.2) g/dL Albumin (3.5-5.0) g/dL 03/30/20 03/30/20 03/30/20 Range/Units 04:43 05:00 05:00 RBC 3.33 L (4.30-5.90) m/uL Hgb 10.9 L (13.0-17.5) gm/dL Hct 31.6 L (39.0-53.0) % Lymphocytes # 0.2 L (1.0-4.8) k/uL ABG pO2 113 H (83-108) mmHg Sodium 131 L (137-145) mmol/L Potassium 5.8 H (3.5-5.1) mmol/L Chloride 97 L (98-107) mmol/L Carbon Dioxide 18 L (22-30) mmol/L BUN 100 H (9-20) mg/dL Creatinine 5.50 H (0.66-1.25) mg/dL Glucose 160 H (74-99) mg/dL POC Glucose (mg/dL) (75-99) mg/dL Calcium 7.6 L (8.4-10.2) mg/dL Total Bilirubin 1.4 H (0.2-1.3) mg/dL AST 76 H (17-59) U/L ALT 81 H (4-49) U/L Alkaline Phosphatase 135 H (38-126) U/L Total Protein 4.3 L (6.3-8.2) g/dL Albumin 2.1 L (3.5-5.0) g/dL 03/30/20 03/30/20 03/30/20 Range/Units 05:05 05:54 06:52 RBC (4.30-5.90) m/uL Hgb (13.0-17.5) gm/dL Hct (39.0-53.0) % Lymphocytes # (1.0-4.8) k/uL ABG pO2 (83-108) mmHg Sodium (137-145) mmol/L Potassium (3.5-5.1) mmol/L Chloride (98-107) mmol/L Carbon Dioxide (22-30) mmol/L BUN (9-20) mg/dL Creatinine (0.66-1.25) mg/dL Glucose (74-99) mg/dL POC Glucose (mg/dL) 164 H 155 H 155 H (75-99) mg/dL Calcium (8.4-10.2) mg/dL Total Bilirubin (0.2-1.3) mg/dL AST (17-59) U/L ALT (4-49) U/L Alkaline Phosphatase (38-126) U/L Total Protein (6.3-8.2) g/dL Albumin (3.5-5.0) g/dL 03/30/20 Range/Units 08:43 RBC (4.30-5.90) m/uL Hgb (13.0-17.5) gm/dL Hct (39.0-53.0) % Lymphocytes # (1.0-4.8) k/uL ABG pO2 (83-108) mmHg Sodium (137-145) mmol/L Potassium (3.5-5.1) mmol/L Chloride (98-107) mmol/L Carbon Dioxide (22-30) mmol/L BUN (9-20) mg/dL Creatinine (0.66-1.25) mg/dL Glucose (74-99) mg/dL POC Glucose (mg/dL) 145 H (75-99) mg/dL Calcium (8.4-10.2) mg/dL Total Bilirubin (0.2-1.3) mg/dL AST (17-59) U/L ALT (4-49) U/L Alkaline Phosphatase (38-126) U/L Total Protein (6.3-8.2) g/dL Albumin (3.5-5.0) g/dL Microbiology - Last 24 Hours (Table) 03/24/20 11:19 Blood Culture - Preliminary Blood No Growth after 120 hours 03/24/20 09:08 Blood Culture - Preliminary Blood No Growth after 120 hours Assessment and Plan Assessment: Patient is a 70-year-old male with a past medical history noted below who presented with a chief complaint of chest pain. Patient was evaluated in the ER and was noted to have evidence of sepsis with possible underlying pneumonia. He was admitted to the hospital and ACS was ruled out. He was started on antibiotic with IV ceftriaxone and oral azithromycin. He was a high suspicion for COVID-19 on initial presentation secondary to elevated inflammatory markers and his clinical presentation. COVID-19 test was negative twice including a rapid and a traditional PCR test. Patient was seen and evaluated by cardiology on presentation and ACS was ruled out. Echocardiogram showed a preserved ejection fraction with no significant wall motion abnormalities. On the morning on 03/23, his clinical condition started to deteriorate with increased oxygen requirement and increased work of breathing requiring transfer to the intensive care unit. Patient was eventually sedated and intubated requiring mechanical ventilation. Below is list of his medical problems addressed during this hospitalization. 1. Acute hypoxic respiratory failure requiring intubation and mechanical ventilation on 03/24. This is most likely secondary to underlying pneumonia with ARDS. Pulmonary edema ruled out by cardiology with a repeat echocardiogram showing preserved ejection fraction. He is currently in the ICU and ventilator being managed by ICU team. Planning for possible bronchoscopy later today 2. Acute kidney failure, oliguric. Suspected ATN Seen and evaluated by nephrology. Started on dialysis on 03/27. Repeat lab work in the morning. 3. Left lower lobe pneumonia: On broad-spectrum antibiotic with Levaquin, doxycycline, and Zosyn day #7. Antibiotic management by infectious disease. There was a concern about possible francisella tularensis infection given history provided by family the patient was hunting coyotes. He was started initially on IV ceftriaxone and oral azithromycin and antibiotic changed to doxycycline and Levaquin on 03/24. Zosyn added by infectious disease. Sputum culture ordered. COVID-19 and influenza screen negative on admission 4. Severe sepsis with septic shock, requiring vasopressors. Now off of vasopressors since 03/29. Managed by ICU team. Blood cultures negative to date 5. Suspected acute diastolic heart failure exacerbation. Echocardiogram on presentation showed a preserved ejection fraction and no significant valvular abnormalities. Repeat limited echocardiogram showed no change in his EF. Patient received multiple doses of IV Lasix. 6. New onset atrial fibrillation, converted spontaneously to normal sinus rhythm. Patient was started on IV heparin but later discontinued secondary to questionable GI bleed with starting materials in the OG tube 7. Chest pain with pleurisy on presentation: ACS ruled out. EKG on presen tation with no acute ischemic changes. Troponin was negative on presentation. CT PE protocol negative for PE. Troponin turned positive on 03/24, most likely secondary to supply demand mismatch given septic shock. Cardiology following and the repeat echocardiogram reviewed 8. Suspected ileus, patient continued to have a distended abdomen now improving with dialysis. Abdominal x-ray showed no acute findings. Tolerating tube feed at lower rate 9. Hypomagnesemia and hyponatremia, on presentation now resolved 10. Chronic medical problems: Hyperlipidemia, hypertension, GERD 11. GI and DVT prophylaxis with IV Protonix and subcu Lovenox 12. CODE STATUS patient is full code Today, I spoke to both patient's sister Mackenzie and significant other Lisa the phone. I gave them an update about the patient's current critical condition. I answered all of the questions to satisfaction.
[2020-03-30] MEDS ORDERED: INSULIN ASPART (NovoLOG) 100 UNIT/ML VIAL SQ SCH (10:30)
[2020-03-30] MEDS: INSULIN DETEMIR (LEVEMIR) 100 UNIT/ML SYR SQ SCH ×2 (10:45→20:05)
[2020-03-30] MEDS: DOXYCYCLINE 100 MG in SODIUM CHLORIDE 0.9% 100 ML IVPB SCH ×2 (10:48→19:41)
--- NOTE | 2020-03-30 11:21 | P.PN ---
Subjective Patient remains intubated. He is in sinus rhythm with normal heart rates Hemoglobin 10.9, white count 6.3, platelet count 212,000 Sodium 131, potassium 5.8 Dear 100 and creatinine 5.5 LFTs mildly abnormal Blood pressure 120/60 mmHg pulse rate in the 60s, afebrile Breath sounds are reduced bilaterally Heart sounds are soft and regular Impression Acute hypoxic sick respiratory failure requiring intubation Pneumonitis, possible Francisella tularensis Septic shock requiring pressors Acute ARDS secondary to pneumonia and sepsis Acute kidney injury secondary to acute tubular necrosis Hypertension History of coronary artery disease Normal LV function no effusion New onset atrial fibrillation, currently patient is back in sinus rhythm Suggest Continue baby aspirin, atorvastatin Continue heparin Please call us as needed Objective - Vital Signs Vital signs: Vital Signs Temp 98.2 F 03/30/20 08:00 Pulse 64 03/30/20 10:00 Resp 26 H 03/30/20 10:00 BP 115/56 03/30/20 10:00 Pulse Ox 96 03/30/20 10:00 Intake & Output 03/29/20 03/30/20 03/30/20 18:59 06:59 18:59 Intake Total 9548.058 4065.998 410.881 Output Total 1255 10 0 Balance 338.997 5203.998 410.881 Weight 116.6 kg 117.5 kg Intake: IV 392 272 154 0.9 NACL 20 30 Dextrose 5% in Water 1, 75 000 ml @ 50 mls/hr IV . Q23H ADAM with Sodium Bicarb (1 Meq/ml) 150 ml Rx#:[id number] Doxycycline 100 mg In 100 100 Sodium Chloride 0.9% 100 ml @ 100 mls/hr IVPB Q12HR ADAM Rx#:[id number] Piperacillin-Tazobactam 3 125 100 100 .375 gm In Sodium Chloride 0.9% 100 ml @ 25 mls/hr IVPB Q12HR ADAM Rx #:[id number] Pressure bag 72 72 24 Intake, IV Titration 1037.221 919.998 148.881 Amount Insulin Regular 100 unit 18.550 30.048 In Sodium Chloride 0.9% 100 ml @ Per Protocol IV .Q0M ADAM Rx#:[id number] Norepinephrine 32 mg In 14.565 Sodium Chloride 0.9% 218 ml @ 0.05 MCG/KG/MIN 2. 233 mls/hr IV .Q24H ADAM Rx#:[id number] Sodium Chloride 0.9% 1, 550 600 50 000 ml @ 50 mls/hr IV . Q20H ADAM Rx#:[id number] fentaNYL (PF) 1,000 mcg 66.801 58.168 In Sodium Chloride 0.9% 80 ml @ Per Protocol IV . Q0M ADAM Rx#:[id number] propofoL 500 mg In Empty 387.305 231.782 98.881 Bag 1 bag @ Titrate IV . Q0M ADAM Rx#:[id number] Tube Feeding 108 144 48 Other 30 90 60 Output: Urine 5 10 0 Stool 250 Hemodialysis 1000 Other: Voiding Method Indwelling Catheter Indwelling Catheter Indwelling Catheter ABP, PAP, CO, CI - Last Documented Arterial Blood Pressure 101/45 - Labs CBC & Chem 7: 03/30/20 05:00 03/30/20 05:00 Labs: Abnormal Lab Results - Last 24 Hours (Table) 03/29/20 03/29/20 03/29/20 Range/Units 11:38 12:57 14:10 RBC (4.30-5.90) m/uL Hgb (13.0-17.5) gm/dL Hct (39.0-53.0) % Lymphocytes # (1.0-4.8) k/uL ABG pO2 (83-108) mmHg Sodium (137-145) mmol/L Potassium (3.5-5.1) mmol/L Chloride (98-107) mmol/L Carbon Dioxide (22-30) mmol/L BUN (9-20) mg/dL Creatinine (0.66-1.25) mg/dL Glucose (74-99) mg/dL POC Glucose (mg/dL) 131 H 137 H 126 H (75-99) mg/dL Calcium (8.4-10.2) mg/dL Total Bilirubin (0.2-1.3) mg/dL AST (17-59) U/L ALT (4-49) U/L Alkaline Phosphatase (38-126) U/L Total Protein (6.3-8.2) g/dL Albumin (3.5-5.0) g/dL 03/29/20 03/29/20 03/29/20 Range/Units 15:27 16:29 17:24 RBC (4.30-5.90) m/uL Hgb (13.0-17.5) gm/dL Hct (39.0-53.0) % Lymphocytes # (1.0-4.8) k/uL ABG pO2 (83-108) mmHg Sodium (137-145) mmol/L Potassium (3.5-5.1) mmol/L Chloride (98-107) mmol/L Carbon Dioxide (22-30) mmol/L BUN (9-20) mg/dL Creatinine (0.66-1.25) mg/dL Glucose (74-99) mg/dL POC Glucose (mg/dL) 143 H 148 H 151 H (75-99) mg/dL Calcium (8.4-10.2) mg/dL Total Bilirubin (0.2-1.3) mg/dL AST (17-59) U/L ALT (4-49) U/L Alkaline Phosphatase (38-126) U/L Total Protein (6.3-8.2) g/dL Albumin (3.5-5.0) g/dL 03/29/20 03/29/20 03/29/20 Range/Units 18:54 20:14 22:00 RBC (4.30-5.90) m/uL Hgb (13.0-17.5) gm/dL Hct (39.0-53.0) % Lymphocytes # (1.0-4.8) k/uL ABG pO2 (83-108) mmHg Sodium (137-145) mmol/L Potassium (3.5-5.1) mmol/L Chloride (98-107) mmol/L Carbon Dioxide (22-30) mmol/L BUN (9-20) mg/dL Creatinine (0.66-1.25) mg/dL Glucose (74-99) mg/dL POC Glucose (mg/dL) 142 H 141 H 140 H (75-99) mg/dL Calcium (8.4-10.2) mg/dL Total Bilirubin (0.2-1.3) mg/dL AST (17-59) U/L ALT (4-49) U/L Alkaline Phosphatase (38-126) U/L Total Protein (6.3-8.2) g/dL Albumin (3.5-5.0) g/dL 03/30/20 03/30/2021 Range/Units 00:56 03:12 04:43 RBC (4.30-5.90) m/uL Hgb (13.0-17.5) gm/dL Hct (39.0-53.0) % Lymphocytes # (1.0-4.8) k/uL ABG pO2 113 H (83-108) mmHg Sodium (137-145) mmol/L Potassium (3.5-5.1) mmol/L Chloride (98-107) mmol/L Carbon Dioxide (22-30) mmol/L BUN (9-20) mg/dL Creatinine (0.66-1.25) mg/dL Glucose (74-99) mg/dL POC Glucose (mg/dL) 139 H 144 H (75-99) mg/dL Calcium (8.4-10.2) mg/dL Total Bilirubin (0.2-1.3) mg/dL AST (17-59) U/L ALT (4-49) U/L Alkaline Phosphatase (38-126) U/L Total Protein (6.3-8.2) g/dL Albumin (3.5-5.0) g/dL 03/30/20 03/30/20 03/30/20 Range/Units 05:00 05:00 05:05 RBC 3.33 L (4.30-5.90) m/uL Hgb 10.9 L (13.0-17.5) gm/dL Hct 31.6 L (39.0-53.0) % Lymphocytes # 0.2 L (1.0-4.8) k/uL ABG pO2 (83-108) mmHg Sodium 131 L (137-145) mmol/L Potassium 5.8 H (3.5-5.1) mmol/L Chloride 97 L (98-107) mmol/L Carbon Dioxide 18 L (22-30) mmol/L BUN 100 H (9-20) mg/dL Creatinine 5.50 H (0.66-1.25) mg/dL Glucose 160 H (74-99) mg/dL POC Glucose (mg/dL) 164 H (75-99) mg/dL Calcium 7.6 L (8.4-10.2) mg/dL Total Bilirubin 1.4 H (0.2-1.3) mg/dL AST 76 H (17-59) U/L ALT 81 H (4-49) U/L Alkaline Phosphatase 135 H (38-126) U/L Total Protein 4.3 L (6.3-8.2) g/dL Albumin 2.1 L (3.5-5.0) g/dL 03/30/20 03/30/20 03/30/20 Range/Units 05:54 06:52 08:43 RBC (4.30-5.90) m/uL Hgb (13.0-17.5) gm/dL Hct (39.0-53.0) % Lymphocytes # (1.0-4.8) k/uL ABG pO2 (83-108) mmHg Sodium (137-145) mmol/L Potassium (3.5-5.1) mmol/L Chloride (98-107) mmol/L Carbon Dioxide (22-30) mmol/L BUN (9-20) mg/dL Creatinine (0.66-1.25) mg/dL Glucose (74-99) mg/dL POC Glucose (mg/dL) 155 H 155 H 145 H (75-99) mg/dL Calcium (8.4-10.2) mg/dL Total Bilirubin (0.2-1.3) mg/dL AST (17-59) U/L ALT (4-49) U/L Alkaline Phosphatase (38-126) U/L Total Protein (6.3-8.2) g/dL Albumin (3.5-5.0) g/dL Microbiology - Last 24 Hours (Table) 03/24/20 11:19 Blood Culture - Preliminary Blood No Growth after 120 hours 03/24/20 09:08 Blood Culture - Preliminary Blood No Growth after 120 hours
[2020-03-30 11:27] LABS: Glucose,Whole Blood 155 mg/dL (75-99)
[2020-03-30] MEDS: LEVOFLOXACIN 250MG-D5W PMX 250 MG in DEXTROSE/WATER 1 50ML.BAG IVPB SCH (11:29)
[2020-03-30] MEDS: NOREPINEPHRINE 32 MG in SODIUM CHLORIDE 0.9% 218 ML IV SCH (11:49)
--- NOTE | 2020-03-30 11:54 | P.PN ---
Subjective Progress Note Date: 03/30/20 CHIEF COMPLAINT: Ileus HISTORY OF PRESENT ILLNESS: Patient is being followed for an abdominal ileus. He has fecal management system in place. He is in the hospital for pneumonia. He is currently getting hemodialysis in the ICU. Patient has had no further evidence of coffee ground emesis. He is tolerating his tube feedings and is at goal at 12 mL/hr. Patient is Afebrile. WBC 6.3 hemoglobin 10.9 PHYSICAL EXAM: VITAL SIGNS: Reviewed. GENERAL: Well-developed in no acute distress. HEENT: No sclera icterus. Extraocular movements grossly intact. Moist buccal mucosa. Head is atraumatic, normocephalic. ABDOMEN: Soft. Nondistended. Nontender. NEUROLOGIC: Patient is intubated ASSESSMENT: 1. Ileus resolved 2. Episode of coffee ground emesis likely due to NG tube irritation, no further episodes PLAN: -Continue supportive care -Continue to monitor for any signs or symptoms of bleeding -Continue to monitor hemoglobin Physician Time Motion Analyst note has been reviewed by physician. Signing provider agrees with the documented findings, assessment, and plan of care. Objective - Vital Signs Vital signs: Vital Signs Temp 98.2 F 03/30/20 08:00 Pulse 71 03/30/20 11:38 Resp 26 H 03/30/20 10:00 BP 115/56 03/30/20 10:00 Pulse Ox 96 03/30/20 10:00 Intake & Output 03/29/20 03/30/20 03/30/20 18:59 06:59 18:59 Intake Total 0762.896 8153.998 410.881 Output Total 1255 10 0 Balance 826.988 2908.998 410.881 Weight 116.6 kg 117.5 kg Intake: IV 392 272 154 0.9 NACL 20 30 Dextrose 5% in Water 1, 75 000 ml @ 50 mls/hr IV . Q23H ADAM with Sodium Bicarb (1 Meq/ml) 150 ml Rx#:[id number] Doxycycline 100 mg In 100 100 Sodium Chloride 0.9% 100 ml @ 100 mls/hr IVPB Q12HR ADAM Rx#:[id number] Piperacillin-Tazobactam 3 125 100 100 .375 gm In Sodium Chloride 0.9% 100 ml @ 25 mls/hr IVPB Q12HR ADAM Rx #:[id number] Pressure bag 72 72 24 Intake, IV Titration 1037.221 919.998 148.881 Amount Insulin Regular 100 unit 18.550 30.048 In Sodium Chloride 0.9% 100 ml @ Per Protocol IV .Q0M ADAM Rx#:[id number] Norepinephrine 32 mg In 14.565 Sodium Chloride 0.9% 218 ml @ 0.05 MCG/KG/MIN 2. 233 mls/hr IV .Q24H ADAM Rx#:[id number] Sodium Chloride 0.9% 1, 550 600 50 000 ml @ 50 mls/hr IV . Q20H ADAM Rx#:[id number] fentaNYL (PF) 1,000 mcg 66.801 58.168 In Sodium Chloride 0.9% 80 ml @ Per Protocol IV . Q0M ADAM Rx#:[id number] propofoL 500 mg In Empty 387.305 231.782 98.881 Bag 1 bag @ Titrate IV . Q0M ADAM Rx#:[id number] Tube Feeding 108 144 48 Other 30 90 60 Output: Urine 5 10 0 Stool 250 Hemodialysis 1000 Other: Voiding Method Indwelling Catheter Indwelling Catheter Indwelling Catheter ABP, PAP, CO, CI - Last Documented Arterial Blood Pressure 101/45 - Labs CBC & Chem 7: 03/30/20 05:00 03/30/20 05:00 Labs: Abnormal Lab Results - Last 24 Hours (Table) 03/29/20 03/29/20 03/29/20 Range/Units 12:57 14:10 15:27 RBC (4.30-5.90) m/uL Hgb (13.0-17.5) gm/dL Hct (39.0-53.0) % Lymphocytes # (1.0-4.8) k/uL ABG pO2 (83-108) mmHg Sodium (137-145) mmol/L Potassium (3.5-5.1) mmol/L Chloride (98-107) mmol/L Carbon Dioxide (22-30) mmol/L BUN (9-20) mg/dL Creatinine (0.66-1.25) mg/dL Glucose (74-99) mg/dL POC Glucose (mg/dL) 137 H 126 H 143 H (75-99) mg/dL Calcium (8.4-10.2) mg/dL Total Bilirubin (0.2-1.3) mg/dL AST (17-59) U/L ALT (4-49) U/L Alkaline Phosphatase (38-126) U/L Total Protein (6.3-8.2) g/dL Albumin (3.5-5.0) g/dL 03/29/20 03/29/20 03/29/20 Range/Units 16:29 17:24 18:54 RBC (4.30-5.90) m/uL Hgb (13.0-17.5) gm/dL Hct (39.0-53.0) % Lymphocytes # (1.0-4.8) k/uL ABG pO2 (83-108) mmHg Sodium (137-145) mmol/L Potassium (3.5-5.1) mmol/L Chloride (98-107) mmol/L Carbon Dioxide (22-30) mmol/L BUN (9-20) mg/dL Creatinine (0.66-1.25) mg/dL Glucose (74-99) mg/dL POC Glucose (mg/dL) 148 H 151 H 142 H (75-99) mg/dL Calcium (8.4-10.2) mg/dL Total Bilirubin (0.2-1.3) mg/dL AST (17-59) U/L ALT (4-49) U/L Alkaline Phosphatase (38-126) U/L Total Protein (6.3-8.2) g/dL Albumin (3.5-5.0) g/dL 03/29/20 03/29/20 03/30/20 Range/Units 20:14 22:00 00:56 RBC (4.30-5.90) m/uL Hgb (13.0-17.5) gm/dL Hct (39.0-53.0) % Lymphocytes # (1.0-4.8) k/uL ABG pO2 (83-108) mmHg Sodium (137-145) mmol/L Potassium (3.5-5.1) mmol/L Chloride (98-107) mmol/L Carbon Dioxide (22-30) mmol/L BUN (9-20) mg/dL Creatinine (0.66-1.25) mg/dL Glucose (74-99) mg/dL POC Glucose (mg/dL) 141 H 140 H 139 H (75-99) mg/dL Calcium (8.4-10.2) mg/dL Total Bilirubin (0.2-1.3) mg/dL AST (17-59) U/L ALT (4-49) U/L Alkaline Phosphatase (38-126) U/L Total Protein (6.3-8.2) g/dL Albumin (3.5-5.0) g/dL 03/30/20 03/30/20 03/30/20 Range/Units 03:12 04:43 05:00 RBC 3.33 L (4.30-5.90) m/uL Hgb 10.9 L (13.0-17.5) gm/dL Hct 31.6 L (39.0-53.0) % Lymphocytes # 0.2 L (1.0-4.8) k/uL ABG pO2 113 H (83-108) mmHg Sodium (137-145) mmol/L Potassium (3.5-5.1) mmol/L Chloride (98-107) mmol/L Carbon Dioxide (22-30) mmol/L BUN (9-20) mg/dL Creatinine (0.66-1.25) mg/dL Glucose (74-99) mg/dL POC Glucose (mg/dL) 144 H (75-99) mg/dL Calcium (8.4-10.2) mg/dL Total Bilirubin (0.2-1.3) mg/dL AST (17-59) U/L ALT (4-49) U/L Alkaline Phosphatase (38-126) U/L Total Protein (6.3-8.2) g/dL Albumin (3.5-5.0) g/dL 03/30/20 03/30/20 03/30/20 Range/Units 05:00 05:05 05:54 RBC (4.30-5.90) m/uL Hgb (13.0-17.5) gm/dL Hct (39.0-53.0) % Lymphocytes # (1.0-4.8) k/uL ABG pO2 (83-108) mmHg Sodium 131 L (137-145) mmol/L Potassium 5.8 H (3.5-5.1) mmol/L Chloride 97 L (98-107) mmol/L Carbon Dioxide 18 L (22-30) mmol/L BUN 100 H (9-20) mg/dL Creatinine 5.50 H (0.66-1.25) mg/dL Glucose 160 H (74-99) mg/dL POC Glucose (mg/dL) 164 H 155 H (75-99) mg/dL Calcium 7.6 L (8.4-10.2) mg/dL Total Bilirubin 1.4 H (0.2-1.3) mg/dL AST 76 H (17-59) U/L ALT 81 H (4-49) U/L Alkaline Phosphatase 135 H (38-126) U/L Total Protein 4.3 L (6.3-8.2) g/dL Albumin 2.1 L (3.5-5.0) g/dL 03/30/20 03/30/20 03/30/20 Range/Units 06:52 08:43 11:25 RBC (4.30-5.90) m/uL Hgb (13.0-17.5) gm/dL Hct (39.0-53.0) % Lymphocytes # (1.0-4.8) k/uL ABG pO2 (83-108) mmHg Sodium (137-145) mmol/L Potassium (3.5-5.1) mmol/L Chloride (98-107) mmol/L Carbon Dioxide (22-30) mmol/L BUN (9-20) mg/dL Creatinine (0.66-1.25) mg/dL Glucose (74-99) mg/dL POC Glucose (mg/dL) 155 H 145 H 155 H (75-99) mg/dL Calcium (8.4-10.2) mg/dL Total Bilirubin (0.2-1.3) mg/dL AST (17-59) U/L ALT (4-49) U/L Alkaline Phosphatase (38-126) U/L Total Protein (6.3-8.2) g/dL Albumin (3.5-5.0) g/dL Microbiology - Last 24 Hours (Table) 03/24/20 09:08 Blood Culture - Final Blood No Growth after 144 hours 03/24/20 11:19 Blood Culture - Preliminary Blood No Growth after 120 hours
[2020-03-30 16:27] LABS: Glucose,Whole Blood 152 mg/dL (75-99)
[2020-03-30] MEDS: INSULIN ASPART (NovoLOG) 100 UNIT/ML VIAL SQ SCH (16:37)
--- NOTE | 2020-03-30 17:20 | PN ---
PROGRESS NOTE DATE OF SERVICE: 03/30/2020 REASON FOR FOLLOWUP: Pneumonia. INTERVAL HISTORY: The patient is currently afebrile. The patient is hemodynamically stable. The patient's FiO2 is currently 45%. No significant purulent secretions through the ET or any worsening diarrhea has been reported by the nursing staff. He has been tolerating his diet, his tube feeds. PHYSICAL EXAMINATION: Blood pressure 128/66, pulse of 70, temperature 98.3. He is 97% on 45% FiO2. General description is an elderly male intubated on the vent. RESPIRATORY SYSTEM: Unlabored breathing with decreased breath sounds at the base. No wheeze. HEART: S1, S2. Regular rate and rhythm. ABDOMEN: Soft. No tenderness. LABS: Hemoglobin is 12.9, white count 6.3, BUN 100, creatinine 5.50. Blood culture negative. DIAGNOSTIC IMPRESSION AND PLAN: Patient with acute respiratory failure which is multifactorial in this patient with a possible component of pneumonia with concern for possible stenotic versus aspiration. Patient is covered with Zosyn and doxycycline and Levaquin; to continue. serology will be ordered for in another week. Continue current antibiotics and monitor his clinical course closely. Continue with supportive care. MMODL / IJN: [id number] /
[2020-03-30 20:14] LABS: Glucose,Whole Blood 133 mg/dL (75-99)
[2020-03-31] MEDS: INSULIN ASPART (NovoLOG) 100 UNIT/ML VIAL SQ SCH ×4 (00:17→17:30)
[2020-03-31 00:18] LABS: Glucose,Whole Blood 122 mg/dL (75-99)
[2020-03-31] MEDS: methylPREDNISolone SOD SUCCI 40 MG/ML 1 ML VIAL IV SCH ×2 (00:38→06:25)
[2020-03-31] MEDS: HEPARIN SOD,PORK IN 0.45% NACL 25,000 UNIT in 0.45% NACL 1 250ML.BAG IV SCH (02:29)
[2020-03-31 04:31] LABS: ABG Base Excess -5.1 mmol/L; ABG HCO3 20 mmol/L (21-25); ABG Oxygen Saturation 96.4 % (94-97); ABG PCO2 34 mmHg (35-45); ABG PH 7.38 (7.35-7.45); ABG PO2 100 mmHg (83-108); ABG TCO2 21 mmol/L (19-24); Allen Test Performed? Yes
[2020-03-31 05:07] LABS: Basophils % (A) 0 %; Eosinophils % (A) 0 %; HCT 34.6 % (39.0-53.0); HGB 11.7 gm/dL (13.0-17.5); Lymphocytes # (A) 0.2 k/uL (1.0-4.8); Lymphocytes % (A) 2 %; MCH 32.4 pg (25.0-35.0); MCHC 33.7 g/dL (31.0-37.0); Mean Platelet Volume 7.8; Monocytes # (A) 0.3 k/uL (0-1.0); Monocytes % (A) 3 %; Neutrophils # (A) 9.7 k/uL (1.3-7.7); Neutrophils % (A) 94 %; Platelet Count 217 k/uL (150-450); RDW 14.6 % (11.5-15.5); WBC 10.3 k/uL (3.8-10.6)
[2020-03-31 05:25] LABS: Albumin 2.3 g/dL (3.5-5.0); Calcium 7.9 mg/dL (8.4-10.2); Total Bilirubin 1.3 mg/dL (0.2-1.3); Total Protein 4.7 g/dL (6.3-8.2)
[2020-03-31 05:33] LABS: Glucose,Whole Blood 131 mg/dL (75-99)
[2020-03-31 05:45] LABS: Potassium 6.1 mmol/L (3.5-5.1)
[2020-03-31] MEDS ORDERED: CALCIUM GLUCONATE 1 GM in SODIUM CHLORIDE 0.9% 100 ML IVPB ONE (06:03)
[2020-03-31] MEDS ORDERED: SODIUM BICARB 8.4% 50 ML SYR (1 MEQ/ML) IV STA ×2 (06:04→06:05)
[2020-03-31] MEDS ORDERED: INSULIN REGULAR 100 UNIT/ML VIAL IV ONE (06:06)
[2020-03-31] MEDS ORDERED: DEXTROSE 50% SYRINGE 50 ML IVP STA (06:07)
[2020-03-31] MEDS: CALCIUM ACETATE 667 MG TAB PO SCH ×3 (06:25→17:35)
--- NOTE | 2020-03-31 06:38 | P.PN ---
Subjective Progress Note Date: 03/31/20 Principal diagnosis: Respiratory failure Reevaluated today on 03/28/2020, patient remains in the ICU, intubated and mechanically ventilated. Remains on the same ventilator settings, assist control rate of 26 tidal volume is 450 FiO2 50% PEEP of 14. ABG showed a pO2 of 89 pCO2 of 34 pH of 7.41, hence no change was made in the ventilator settings. However I noticed some leak around the endotracheal tube, and recommended respiratory to have more air in the cough, and adjustment of the endotracheal tube placement. Patient is on multiple drips including fentanyl 0.25 mcg/kg/h, norepinephrine is at 0.05 mcg/kg/m. Propofol at 60 mcg/kg/m. Heparin drip, insulin 5 units per hour drip, and bicarb drip at 75 mL per hour. Patient is back on enteral feeding since he responded well to lactulose, and had multiple bowel movements now he has a fecal management system. In place. Patient went into atrial fibrillation around 4:30 AM, however his rate seems to be fairly well controlled, and basically on heparin only. Underwent SLED yesterday, and was tolerated, 200 mL oFF. Chest x-ray continues to show bilateral interstitial infiltrates, consistent with ARDS. Although the possibility of interstitial edema/fluid overload secondary to renal failure and oliguria. Is not entirely ruled out. Microbiology from sputum and blood remains nondiagnostic. titer for Francisella is pending. CBC is normal WBC count is 7.6 hemoglobin is 10.8. PTT is 53.3. Liver enzymes remain slightly elevated. Repeat pro-calcitonin is pending. Urine Legionella antigen is negative On 03/29/2020 patient seen in follow-up in the intensive care unit, patient remains sedated, and intubated on mechanical ventilator current vent settings are assist control mode of ventilation with a rate of 26, tidal -450, FiO2 of 50% and PEEP of 14 this morning blood gases were reviewed showing pO2 112, pCO2 39 pH of 7.39 and subsequently FiO2 was dropped down to 45%. Is on multiple IV was including 0.9 normal saline at rate of 50 ML per hour, fentanyl at 0.5 mcg/kg/h, insulin at 3 units per hour, Diprivan is at 65 mics per kilogram per minute, levophed is at 4 mics per minute. Patient's tube feedings have been on hold since yesterday related to episode of coffee-ground emesis. Today's hemogl obin is 10.9, white blood cell count of 7.9, significantly improved from a few days ago, PTT is 43.4, sodium is 136, potassium is 5.1, CO2 is 21, chloride is 97, B1 is 92, creatinine is 6.52, patient had hemodialysis treatment yesterday and 1 L of fluid was removed. Nephrology is following, and patient is anticipated to have hemodialysis with ultrafiltration. Today's chest x-ray shows cardiomegaly with bilateral lower lung multifocal acute infiltrates and/or atelectasis and small bilateral pleural effusions and bilateral central vascular congestion. Patient also appears to be generally fluid overloaded. Vasopressor requirements have significantly improved from a few days ago. Blood and sputum cultures have shown no growth thus far. Continue urine antigen was negative, influenza and COVID 19 PCR were negative, awaiting results of the Francisella tularensis antibody test On 03/30/2020 patient seen in follow-up in the intensive care unit, he remains sedated and intubated on mechanical ventilator current vent settings are assist control mode of ventilation with a rate of 26, tidal volumes 450 FiO2 45% and PEEP of 14. This morning his blood gases have been reviewed showing pO2 of 113, pCO2 of 36 and pH of 7.38. PEEP was then dropped to 10. Patient IVs include 0.9 normal saline at a rate of 50 ML per hour, Diprivan is a 65 mics per kilo per minute, fentanyl drip is 0.5 mics per kilo per minute, insulin drip is at 3 units per hour. Tube feedings in the form of vital high-protein at a rate of 12 mL an hour, and the goal is 12. Today's labs have been reviewed, pro-calcitonin has improved although still significantly elevated at 59.06, cultures have been reviewed including blood and sputum cultures, and remain negative thus far, patient remains on doxycycline, Levaquin, and Zosyn, ID service is following. White blood cell count is 6.3, hemoglobin is 10.9, sodium is 131, potassium is 5.8, chloride is 97, CO2 is 18, B1 is 100, and creatinine is 5.5. Remains in anuric, he had hemodialysis yesterday with removal of 1 L of fluid. Today's chest x-ray has been reviewed showing improving right lower lobe infiltrate. No acute events overnight, patient has not had any further bleeding, tolerating tube feedings well. Has been afebrile. Not requiring any vasopressor support. Progress note dated 03/31/2020. 70-year-old male again seen in the intensive care unit. The patient remains intubated and mechanically ventilated. He is on the volume assist control mo dality, rate 26, tidal volume 450, FiO2 45%, but 10. Arterial blood gases show a PaO2 of 100, PaCO2 of 34, pH is 7.38. The patient's currently on saline 10 mL an hour, fentanyl drip at 1 mcg/kg per hour, propofol at 70 mcg/kg/m, and vital high protein at 12 cc per hour, which is goal. His Francisella tularensis antibody test was negative. I believe the patient is a good candidate today for a daily interruption of sedation and a spontaneous trial potentially. We planned to think about doing a bronchoscopy on the patient today for sampling, but it was not done yesterday. The patient is not requiring any blood pressure support. White count is 10.3, hemoglobin 11.7, hematocrit 34.6, and platelet count 217,000. Sodium was 1:30, potassium 6.1, chloride 96, CO2 17, anion gap 17, and BUN of 107 with a creatinine of 5.34. His albumin is 2.3. AST is 89, ALT is 85. Microbiologic studies were negative. Chest x-ray could not be retrieved, and the official report is pending. The patient remains on Levaquin, doxycycline, and Zosyn. Objective - Vital Signs Vital signs: Vital Signs Temp 98.5 F 03/31/20 04:00 Pulse 68 03/31/20 05:00 Resp 26 H 03/31/20 05:00 BP 150/68 03/31/20 05:00 Pulse Ox 95 03/31/20 05:00 Intake & Output 03/30/20 03/30/20 03/31/20 06:59 18:59 06:59 Intake Total 1425.998 968.483 826.004 Output Total 10 5 5 Balance 1415.998 963.483 821.004 Weight 117.5 kg 118.1 kg Intake: IV 272 282 302 0.9 NACL 110 30 Doxycycline 100 mg In 100 100 Sodium Chloride 0.9% 100 ml @ 100 mls/hr IVPB Q12HR [facility] Rx#:[id number] Piperacillin-Tazobactam 3 100 100 100 .375 gm In Sodium Chloride 0.9% 100 ml @ 25 mls/hr IVPB Q12HR [facility] Rx #:[id number] Pressure bag 72 72 72 Intake, IV Titration 919.998 422.483 260.004 Amount Insulin Regular 100 unit 30.048 In Sodium Chloride 0.9% 100 ml @ Per Protocol IV .Q0M [facility] Rx#:[id number] Sodium Chloride 0.9% 1, 600 50 000 ml @ 50 mls/hr IV . Q20H [facility] Rx#:[id number] fentaNYL (PF) 1,000 mcg 58.168 73.602 84.335 In Sodium Chloride 0.9% 80 ml @ Per Protocol IV . Q0M [facility] Rx#:[id number] propofoL 500 mg In Empty 231.782 298.881 175.669 Bag 1 bag @ Titrate IV . Q0M [facility] Rx#:[id number] Tube Feeding 144 144 144 Other 90 120 120 Output: Urine 10 5 5 Other: Voiding Method Indwelling Catheter Indwelling Catheter Indwelling Catheter ABP, PAP, CO, CI - Last Documented Arterial Blood Pressure 125/52 - Exam No acute distress, sedated, intubated, on mechanical ventilator. HEENT examination is grossly unremarkable. Mucous membranes are moist. No oral lesions. Neck supple. Full range of motion. No adenopathy thyromegaly or neck vein distention. Cardiovascular examination reveals regular rhythm rate. S1-S2 normal. No S3 or S4. No discernible murmur noted. Heart sounds are distant. Heart rate is 68 bpm. Lungs reveal bilateral coarse rhonchi. Breath sounds equal. No wheezes or crackles. Abdomen soft and bowel sounds are heard. No masses or tenderness. Extremities are intact. No cyanosis clubbing or edema. Skin is without rash or lesion. Neurologic examination cannot be properly assessed at this time as the patient's heavily sedated. - Labs CBC & Chem 7: 03/31/20 04:35 03/31/20 04:35 Labs: Abnormal Lab Results - Last 24 Hours (Table) 03/30/20 03/30/20 03/30/20 Range/Units 05:00 06:52 08:43 RBC (4.30-5.90) m/uL Hgb (13.0-17.5) gm/dL Hct (39.0-53.0) % Neutrophils # (1.3-7.7) k/uL Lymphocytes # (1.0-4.8) k/uL ABG pCO2 (35-45) mmHg ABG HCO3 (21-25) mmol/L Sodium 131 L (137-145) mmol/L Potassium 5.8 H (3.5-5.1) mmol/L Chloride 97 L (98-107) mmol/L Carbon Dioxide 18 L (22-30) mmol/L BUN 100 H (9-20) mg/dL Creatinine 5.50 H (0.66-1.25) mg/dL Glucose 160 H (74-99) mg/dL POC Glucose (mg/dL) 155 H 145 H (75-99) mg/dL Calcium 7.6 L (8.4-10.2) mg/dL Total Bilirubin 1.4 H (0.2-1.3) mg/dL AST 76 H (17-59) U/L ALT 81 H (4-49) U/L Alkaline Phosphatase 135 H (38-126) U/L Total Protein 4.3 L (6.3-8.2) g/dL Albumin 2.1 L (3.5-5.0) g/dL 03/30/20 03/30/20 03/30/20 Range/Units 11:25 16:25 20:12 RBC (4.30-5.90) m/uL Hgb (13.0-17.5) gm/dL Hct (39.0-53.0) % Neutrophils # (1.3-7.7) k/uL Lymphocytes # (1.0-4.8) k/uL ABG pCO2 (35-45) mmHg ABG HCO3 (21-25) mmol/L Sodium (137-145) mmol/L Potassium (3.5-5.1) mmol/L Chloride (98-107) mmol/L Carbon Dioxide (22-30) mmol/L BUN (9-20) mg/dL Creatinine (0.66-1.25) mg/dL Glucose (74-99) mg/dL POC Glucose (mg/dL) 155 H 152 H 133 H (75-99) mg/dL Calcium (8.4-10.2) mg/dL Total Bilirubin (0.2-1.3) mg/dL AST (17-59) U/L ALT (4-49) U/L Alkaline Phosphatase (38-126) U/L Total Protein (6.3-8.2) g/dL Albumin (3.5-5.0) g/dL 03/31/20 03/31/20 03/31/20 Range/Units 00:16 04:30 04:35 RBC 3.60 L (4.30-5.90) m/uL Hgb 11.7 L (13.0-17.5) gm/dL Hct 34.6 L (39.0-53.0) % Neutrophils # 9.7 H (1.3-7.7) k/uL Lymphocytes # 0.2 L (1.0-4.8) k/uL ABG pCO2 34 L (35-45) mmHg ABG HCO3 20 L (21-25) mmol/L Sodium (137-145) mmol/L Potassium (3.5-5.1) mmol/L Chloride (98-107) mmol/L Carbon Dioxide (22-30) mmol/L BUN (9-20) mg/dL Creatinine (0.66-1.25) mg/dL Glucose (74-99) mg/dL POC Glucose (mg/dL) 122 H (75-99) mg/dL Calcium (8.4-10.2) mg/dL Total Bilirubin (0.2-1.3) mg/dL AST (17-59) U/L ALT (4-49) U/L Alkaline Phosphatase (38-126) U/L Total Protein (6.3-8.2) g/dL Albumin (3.5-5.0) g/dL 03/31/20 03/31/20 Range/Units 04:35 05:31 RBC (4.30-5.90) m/uL Hgb (13.0-17.5) gm/dL Hct (39.0-53.0) % Neutrophils # (1.3-7.7) k/uL Lymphocytes # (1.0-4.8) k/uL ABG pCO2 (35-45) mmHg ABG HCO3 (21-25) mmol/L Sodium 130 L (137-145) mmol/L Potassium 6.1 H* (3.5-5.1) mmol/L Chloride 96 L (98-107) mmol/L Carbon Dioxide 17 L (22-30) mmol/L BUN 107 H* (9-20) mg/dL Creatinine 5.34 H (0.66-1.25) mg/dL Glucose 128 H (74-99) mg/dL POC Glucose (mg/dL) 131 H (75-99) mg/dL Calcium 7.9 L (8.4-10.2) mg/dL Total Bilirubin (0.2-1.3) mg/dL AST 89 H (17-59) U/L ALT 85 H (4-49) U/L Alkaline Phosphatase 154 H (38-126) U/L Total Protein 4.7 L (6.3-8.2) g/dL Albumin 2.3 L (3.5-5.0) g/dL Microbiology - Last 24 Hours (Table) 03/24/20 11:19 Blood Culture - Final Blood No Growth after 144 hours 03/24/20 09:08 Blood Culture - Final Blood No Growth after 144 hours Assessment and Plan Assessment: #1. 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 Titers for Francisella are negative. Sputum cultures and blood cultures are negative, Legionella urine antigen was negative. Influenza and COVID 19 PCR were negative. He is covered with a combination of Levaquin, Zosyn and doxycycline. #2. Acute septic shock requiring pressors, resolved. #3. Acute ARDS secondary to pneumonia and sepsis #4. Acute kidney injury suspect acute tubular necrosis from hypotension and septic shock, requiring hemodialysis and ultrafiltration #5. Acute diastolic congestive heart failure. Echocardiogram showed no evidence of LV dysfunction and no evidence of pericardial effusion #6. History of underlying coronary artery disease #7. History of hypertension #8. Multiorgan system failure secondary to sepsis and septic shock #9. Ex-smoker #10. New-onset atrial fibrillation, rate is controlled, heparin drip is currently on hold related to episode of coffee-ground emesis, patient is currently back into sinus rhythm with a first-degree AV block #11. Acute ileus, resolved #12. Episode of coffee-ground emesis, hemoglobin is stable at 11.7 Plan: Plan dated 03/31/2020. The patient's antibody testing for tularensis were negative. The patient remains on the volume assist control modality. Blood gases are reasonable with a PaO2 100, PaCO2 34, and pH is 7.38. The patient would probably benefit from a daily eruption of sedation at the very least, and possibly a spontaneous breathing trial. The patient is on a fentanyl at 1 mcg/kg/h and propofol at 70 mcg/kg/m. The patient's receiving enteral nutrition at goal which is 12 mL an hour and vital high protein. Chest x-ray cannot be evaluated today. Labs are reviewed. Prognosis is guarded. We will continue to follow and hopefully move the patient in the direction of weaning and extubation. Time with Patient: Greater than 30
[2020-03-31] MEDS: fentaNYL (PF) 1,000 MCG in SODIUM CHLORIDE 0.9% 80 ML IV SCH ×3 (06:40→21:43)
[2020-03-31] MEDS: INSULIN DETEMIR (LEVEMIR) 100 UNIT/ML SYR SQ SCH ×2 (06:50→21:43)
--- NOTE | 2020-03-31 08:03 | XR ---
EXAMINATION TYPE: XR chest 1V portable DATE OF EXAM: 03/31/2020 COMPARISON: 03/30/2020 HISTORY: SOB, Follow Up FINDINGS: Indwelling tubes and catheters are unchanged. Progressive perihilar and basal infiltrates with small effusions. The findings are nonspecific. Corre late for underlying pneumonia. Stable appearance of the cardio-mediastinal structures at this time. IMPRESSION: 1. Progressive perihilar and basal infiltrates with small effusions. The findings are nonspecific. C orrelate for underlying pneumonia.
[2020-03-31] MEDS: IPRATROPIUM-ALBUTEROL 3 ML NEB INHALATION SCH ×4 (08:22→21:01)
--- NOTE | 2020-03-31 08:22 | P.PN ---
Subjective Patient is seen in follow-up for acute kidney injury, currently hemodialysis dependent. Off vasopressors. Receiving tube feeding. Intubated. 45% FiO2 support. Oliguric. Potassium level 6.1 this morning. Vital signs are stable. General: Intubated. OG tube noted. HEENT: No JVD. LUNGS: Breath sounds decreased. HEART: Rate and Rhythm are regular. ABDOMEN: Soft. No gross distention. EXTREMITITES: 1+ edema. Scrotal edema noted. Objective - Vital Signs Vital signs: Vital Signs Temp 98.5 F 03/31/20 04:00 Pulse 70 03/31/20 07:00 Resp 28 H 03/31/20 07:00 BP 127/58 03/31/20 07:00 Pulse Ox 96 03/31/20 07:00 Intake & Output 03/30/20 03/31/20 03/31/20 18:59 06:59 18:59 Intake Total 968.483 841.669 318.411 Output Total 5 5 0 Balance 963.483 836.669 318.411 Weight 118.1 kg Intake: IV 282 302 156 0.9 NACL 110 30 50% Dextrose Amp 50 Doxycycline 100 mg In 100 Sodium Chloride 0.9% 100 ml @ 100 mls/hr IVPB Q12HR [facility] Rx#:[id number] Piperacillin-Tazobactam 3 100 100 .375 gm In Sodium Chloride 0.9% 100 ml @ 25 mls/hr IVPB Q12HR [facility] Rx #:[id number] Pressure bag 72 72 6 Sodium Bicarb Amp 100 Intake, IV Titration 422.483 275.669 150.411 Amount Calcium Gluconate 1 gm In 100 Sodium Chloride 0.9% 100 ml @ 100 mls/hr IVPB ONCE ONE Rx#:[id number] Sodium Chloride 0.9% 1, 50 000 ml @ 50 mls/hr IV . Q20H [facility] Rx#:[id number] fentaNYL (PF) 1,000 mcg 73.602 100.000 In Sodium Chloride 0.9% 80 ml @ Per Protocol IV . Q0M [facility] Rx#:[id number] propofoL 500 mg In Empty 298.881 175.669 50.411 Bag 1 bag @ Titrate IV . Q0M [facility] Rx#:[id number] Tube Feeding 144 144 12 Other 120 120 Output: Urine 5 5 0 Other: Voiding Method Indwelling Catheter Indwelling Catheter ABP, PAP, CO, CI - Last Documented Arterial Blood Pressure 124/49 - Labs CBC & Chem 7: 03/31/20 04:35 03/31/20 04:35 Labs: Abnormal Lab Results - Last 24 Hours (Table) 03/30/20 03/30/20 03/30/20 Range/Units 08:43 11:25 16:25 RBC (4.30-5.90) m/uL Hgb (13.0-17.5) gm/dL Hct (39.0-53.0) % Neutrophils # (1.3-7.7) k/uL Lymphocytes # (1.0-4.8) k/uL ABG pCO2 (35-45) mmHg ABG HCO3 (21-25) mmol/L Sodium (137-145) mmol/L Potassium (3.5-5.1) mmol/L Chloride (98-107) mmol/L Carbon Dioxide (22-30) mmol/L BUN (9-20) mg/dL Creatinine (0.66-1.25) mg/dL Glucose (74-99) mg/dL POC Glucose (mg/dL) 145 H 155 H 152 H (75-99) mg/dL Calcium (8.4-10.2) mg/dL AST (17-59) U/L ALT (4-49) U/L Alkaline Phosphatase (38-126) U/L Total Protein (6.3-8.2) g/dL Albumin (3.5-5.0) g/dL 03/30/20 03/31/20 03/31/20 Range/Units 20:12 00:16 04:30 RBC (4.30-5.90) m/uL Hgb (13.0-17.5) gm/dL Hct (39.0-53.0) % Neutrophils # (1.3-7.7) k/uL Lymphocytes # (1.0-4.8) k/uL ABG pCO2 34 L (35-45) mmHg ABG HCO3 20 L (21-25) mmol/L Sodium (137-145) mmol/L Potassium (3.5-5.1) mmol/L Chloride (98-107) mmol/L Carbon Dioxide (22-30) mmol/L BUN (9-20) mg/dL Creatinine (0.66-1.25) mg/dL Glucose (74-99) mg/dL POC Glucose (mg/dL) 133 H 122 H (75-99) mg/dL Calcium (8.4-10.2) mg/dL AST (17-59) U/L ALT (4-49) U/L Alkaline Phosphatase (38-126) U/L Total Protein (6.3-8.2) g/dL Albumin (3.5-5.0) g/dL 03/31/20 03/31/20 03/31/20 Range/Units 04:35 04:35 05:31 RBC 3.60 L (4.30-5.90) m/uL Hgb 11.7 L (13.0-17.5) gm/dL Hct 34.6 L (39.0-53.0) % Neutrophils # 9.7 H (1.3-7.7) k/uL Lymphocytes # 0.2 L (1.0-4.8) k/uL ABG pCO2 (35-45) mmHg ABG HCO3 (21-25) mmol/L Sodium 130 L (137-145) mmol/L Potassium 6.1 H* (3.5-5.1) mmol/L Chloride 96 L (98-107) mmol/L Carbon Dioxide 17 L (22-30) mmol/L BUN 107 H* (9-20) mg/dL Creatinine 5.34 H (0.66-1.25) mg/dL Glucose 128 H (74-99) mg/dL POC Glucose (mg/dL) 131 H (75-99) mg/dL Calcium 7.9 L (8.4-10.2) mg/dL AST 89 H (17-59) U/L ALT 85 H (4-49) U/L Alkaline Phosphatase 154 H (38-126) U/L Total Protein 4.7 L (6.3-8.2) g/dL Albumin 2.3 L (3.5-5.0) g/dL Microbiology - Last 24 Hours (Table) 03/24/20 11:19 Blood Culture - Final Blood No Growth after 144 hours 03/24/20 09:08 Blood Culture - Final Blood No Growth after 144 hours Assessment and Plan Plan: Assessment: 1. Acute kidney injury secondary to ATN secondary to septic shock. Currently hemodialysis dependent. Oliguric. 2. Septic shock most likely secondary to pneumonia maintained on antibiotics. 3. Volume overload. 4. Metabolic acidosis secondary to acute kidney injury. Maintained on oral bicarb. 5. Hyperphosphatemia secondary to acute kidney injury maintained on PhosLo. 6. Hyperkalemia secondary to acute kidney injury and metabolic acidosis. 7. Hyponatremia secondary to acute kidney injury. Hypervolemic. Plan: Continue with daily dialysis. Wean FiO2. Continue to monitor for renal recovery. Increase dose of oral bicarb. Low potassium tube feeds discussed with the nurse. Dietitian aware. Patient received IV calcium, bicarb IV push, IV insulin with D50 this morning. Repeat potassium level 2 hours after dialysis completed.
[2020-03-31] MEDS: DOXYCYCLINE 100 MG in SODIUM CHLORIDE 0.9% 100 ML IVPB SCH (09:00)
[2020-03-31] MEDS: CHLORHEXIDINE GLUCONATE 15 ML CUP MUCOUS MEM SCH ×2 (09:35→21:43)
[2020-03-31] MEDS: PIPERACILLIN-TAZOBACTAM 3.375 GM in SODIUM CHLORIDE 0.9% 100 ML IVPB SCH (09:35)
[2020-03-31] MEDS: SODIUM BICARBONATE TAB 650 MG TAB PO SCH ×2 (09:35→21:43)
[2020-03-31] MEDS: ATORVASTATIN 40 MG TAB PO SCH (09:35)
[2020-03-31] MEDS: PANTOPRAZOLE 40 MG/10 ML VIAL IVP SCH ×2 (09:35→21:42)
[2020-03-31] MEDS: ASPIRIN 81 MG PO SCH (09:35)
[2020-03-31 11:40] LABS: Glucose,Whole Blood 116 mg/dL (75-99)
--- NOTE | 2020-03-31 12:56 | P.PN ---
Subjective Progress Note Date: 03/31/20 (delayed charting seen at 1000) Principal diagnosis: chest pain Patient is a 70-year-old male with coronary artery disease, hypertension, dyslipidemia and GERD who initially presented to [facility] with complaints of chest pain. He underwent extensive evaluation in the ER and was found to have a fever of 102. Chest x-ray was negative. CT PE negative. Infl uenza and initial culprit antigen testing were negative. Troponin and EKG did not reveal any signs of acute ischemia. He was admitted for further monitoring. His troponins remained negative. There is still concern for occult lid and Covid 19 PCR was tested which remained negative. He developed worsening respiratory distress overnight on 03/22 and was subsequently started on Decadron, albuterol, and had an additional dose of Motrin secondary to his fevers. Cardiology was consulted for his chest pain and his troponins remained negative. They agreed with need for echocardiogram which showed ejection fraction of 55% with mild valvular disease. On the morning of 03/24 he has not had increased work of breathing and hypoxemia. Legionella urine antigen was ordered, 1 L bolus, and DuoNeb every 2 hours. He continued to decline and was subsequently transferred to the stepdown unit and started on BiPAP therapy requiring Ativan. Later that afternoon he again had worsening hypoxemia and hypotensive and he was subsequently transferred to the ICU and intubated and started on vasopressors. Pulmonary was consulted. Her concern about possible zoonotic infection or tularemia secondary to his recent coyote exposure. Infectious disease was subsequently consulted. He was found to have a pro-calcitonin greater than 2. He was continued on Doxy, Levaquin, and was is currently started on Zosyn. Gentamicin was not added secondary to worsening kidney function. He continued to require vasopressors through 03/29 and those were able to be subsequently weaned. He had one episode of paroxysmal A. fib He developed worsening renal function throughout his hospital stay. He required hemodialysis which was initiated on 03/27. He developed an ileus and surgery was consulted. He had one episode of coffee-ground NG tube output which was likely secondary to irritation from the nasogastric tube. His potassium remained elevated despite bicarb drip and hemodialysis. His tube feeds were adjusted. Patient seen and examined at bedside. He is sedated on vent and not responsive. Per nursing acute concerns are that HD cath wtih issues today and HD will need to be over a longer time. General: ill apperaing, mild distress, appears at stated age Lines: TLC R IJ, R PICC, R groin HD cath, and R radial art Derm: warm, dry Head: atraumatic, normocephalic, symmetric Eyes: no lid lesion, PERRL, anicteric sclera Mouth: no lip lesion, mucus membranes dry Cardiovascular: S1S2 reg, no murmur, positive posterior tibial pulse bilateral, Lungs: Course SS bilateral, no rhonchi, no rales , no accessory muscle use, on vent Abdominal: soft, distended, nontender to palpation, no guarding, no appreciable organomegaly Ext: no gross muscle atrophy, diffuse anasarca, no contractures Neuro: No tremors, no roving eye movements, no fasciulation, breathing over the vent Psych: sedated on vent, not responsive Acute hypoxic respiratory failure, Pneumonia, ARDS - + procalcitionin - ID and Pulm recs: Doxy, levaquin, zosyn - pulm hygeine - SBT today if able - Flu negative, COVID negative, sputum and blood cultures are negative, Tularemia AB negative will need repeat testing in 2 weeks - Family worried about lymes diease as had a rash prior to admission - Speckled ALEX. C-ANCA and P-ANCA negative, negative anti GBM - Vent Day # 7 - off steroids 2/3 CODY with hyperkalema secondary to ATN requiring hemodialysis, hyperphosphatemia -Dialysis today -Nephrology following -On oral bicarb -Tube feedings changed to be low potassium containing - phoslo Hyponatremia secondary to fluid overload -Continue to attempt to take off fluids with hemodialysis -Repeat sodium levels in a.m. New-onset paroxysmal A. fib currently maintained in normal sinus rhythm -Cardiology recommendations -On heparin gtt -Not requiring rate or rhythm controlling medications Steroid induced hyperglycemia - off insulin gtt - Tenuous Levemir at current dose of steroids have been discontinued -continue with sliding scale - follow BS -Check an A1c to rule out underlying diabetes Coffee ground emesis - Resolved X 48 hours - Surgery recs: likely due to NGT - Follow CBC Sepsis, resolved Transaminitis, improving Hypomagnesemia, resolved ileus, resolved Chest pain due to pleurisy, ACS ruled out Chronic: Coronary artery disease GERD Hyperlipidemia DVT prophylaxis: Heparin gtt Discussed with: nursing, sister over phone for 20 miuntes Anticipated discharge: unknown Anticipated discharge place: SNF VS LT[facility] A total of 35 minutes was spent on the care of this complex patient more than 50% of the time was spent in counseling and care coordination. Objective - Vital Signs Vital signs: Vital Signs Temp 98.2 F 03/31/20 08:00 Pulse 64 03/31/20 11:41 Resp 26 H 03/31/20 10:00 BP 126/61 03/31/20 10:00 Pulse Ox 95 03/31/20 10:00 Intake & Output 03/30/20 03/31/20 03/31/20 18:59 06:59 18:59 Intake Total 968.483 841.669 613.592 Output Total 5 5 0 Balance 963.483 836.669 613.592 Weight 118.1 kg Intake: IV 282 302 304 0.9 NACL 110 30 30 50% Dextrose Amp 50 Doxycycline 100 mg In 100 Sodium Chloride 0.9% 100 ml @ 100 mls/hr IVPB Q12HR [facility] Rx#:[id number] Piperacillin-Tazobactam 3 100 100 100 .375 gm In Sodium Chloride 0.9% 100 ml @ 25 mls/hr IVPB Q12HR [facility] Rx #:[id number] Pressure bag 72 72 24 Sodium Bicarb Amp 100 Intake, IV Titration 422.483 275.669 201.592 Amount Calcium Gluconate 1 gm In 100 Sodium Chloride 0.9% 100 ml @ 100 mls/hr IVPB ONCE ONE Rx#:[id number] Sodium Chloride 0.9% 1, 50 000 ml @ 50 mls/hr IV . Q20H [facility] Rx#:[id number] fentaNYL (PF) 1,000 mcg 73.602 100.000 In Sodium Chloride 0.9% 80 ml @ Per Protocol IV . Q0M [facility] Rx#:[id number] propofoL 500 mg In Empty 298.881 175.669 101.592 Bag 1 bag @ Titrate IV . Q0M [facility] Rx#:[id number] Tube Feeding 144 144 48 Other 120 120 60 Output: Urine 5 5 0 Other: Voiding Method Indwelling Catheter Indwelling Catheter Indwelling Catheter ABP, PAP, CO, CI - Last Documented Arterial Blood Pressure 123/53 - Labs CBC & Chem 7: 03/31/20 04:35 03/31/20 04:35 Labs: Abnormal Lab Results - Last 24 Hours (Table) 03/30/20 03/30/20 03/31/20 Range/Units 16:25 20:12 00:16 RBC (4.30-5.90) m/uL Hgb (13.0-17.5) gm/dL Hct (39.0-53.0) % Neutrophils # (1.3-7.7) k/uL Lymphocytes # (1.0-4.8) k/uL ABG pCO2 (35-45) mmHg ABG HCO3 (21-25) mmol/L Sodium (137-145) mmol/L Potassium (3.5-5.1) mmol/L Chloride (98-107) mmol/L Carbon Dioxide (22-30) mmol/L BUN (9-20) mg/dL Creatinine (0.66-1.25) mg/dL Glucose (74-99) mg/dL POC Glucose (mg/dL) 152 H 133 H 122 H (75-99) mg/dL Calcium (8.4-10.2) mg/dL AST (17-59) U/L ALT (4-49) U/L Alkaline Phosphatase (38-126) U/L Total Protein (6.3-8.2) g/dL Albumin (3.5-5.0) g/dL 03/31/20 03/31/20 03/31/20 Range/Units 04:30 04:35 04:35 RBC 3.60 L (4.30-5.90) m/uL Hgb 11.7 L (13.0-17.5) gm/dL Hct 34.6 L (39.0-53.0) % Neutrophils # 9.7 H (1.3-7.7) k/uL Lymphocytes # 0.2 L (1.0-4.8) k/uL ABG pCO2 34 L (35-45) mmHg ABG HCO3 20 L (21-25) mmol/L Sodium 130 L (137-145) mmol/L Potassium 6.1 H* (3.5-5.1) mmol/L Chloride 96 L (98-107) mmol/L Carbon Dioxide 17 L (22-30) mmol/L BUN 107 H* (9-20) mg/dL Creatinine 5.34 H (0.66-1.25) mg/dL Glucose 128 H (74-99) mg/dL POC Glucose (mg/dL) (75-99) mg/dL Calcium 7.9 L (8.4-10.2) mg/dL AST 89 H (17-59) U/L ALT 85 H (4-49) U/L Alkaline Phosphatase 154 H (38-126) U/L Total Protein 4.7 L (6.3-8.2) g/dL Albumin 2.3 L (3.5-5.0) g/dL 03/31/20 03/31/20 Range/Units 05:31 11:39 RBC (4.30-5.90) m/uL Hgb (13.0-17.5) gm/dL Hct (39.0-53.0) % Neutrophils # (1.3-7.7) k/uL Lymphocytes # (1.0-4.8) k/uL ABG pCO2 (35-45) mmHg ABG HCO3 (21-25) mmol/L Sodium (137-145) mmol/L Potassium (3.5-5.1) mmol/L Chloride (98-107) mmol/L Carbon Dioxide (22-30) mmol/L BUN (9-20) mg/dL Creatinine (0.66-1.25) mg/dL Glucose (74-99) mg/dL POC Glucose (mg/dL) 131 H 116 H (75-99) mg/dL Calcium (8.4-10.2) mg/dL AST (17-59) U/L ALT (4-49) U/L Alkaline Phosphatase (38-126) U/L Total Protein (6.3-8.2) g/dL Albumin (3.5-5.0) g/dL Microbiology - Last 24 Hours (Table) 03/24/20 11:19 Blood Culture - Final Blood No Growth after 144 hours 03/24/20 09:08 Blood Culture - Final Blood No Growth after 144 hours
[2020-03-31] MEDS ORDERED: DOXYCYCLINE 100 MG in SODIUM CHLORIDE 0.9% 100 ML IVPB SCH (15:00)
--- NOTE | 2020-03-31 16:04 | P.PN ---
Progress Note - Text Progress Note Date: 03/31/20 The patient is continued received tube feeds. He is having active bowel movements. His abdomen soft her. The patient will be continued to be weaned from the ventilator. If this is successful he will not need a PEG or tracheostomy.
--- NOTE | 2020-03-31 16:20 | PN ---
PROGRESS NOTE DATE OF SERVICE: 03/31/2020 REASON FOR FOLLOWUP: Pneumonia. INTERVAL HISTORY: The patient is currently afebrile. The patient is hemodynamically stable. FiO2 is currently 45%. No significant purulent secretions through the ET or any worsening diarrhea reported by the nursing staff. PHYSICAL EXAMINATION: Blood pressure 121/57 with pulse of 64, temperature 98.2. General description is an elderly male intubated on the vent. RESPIRATORY SYSTEM: Unlabored breathing, decreased breath sounds at the bases. No wheeze. HEART: S1, S2. Regular rate and rhythm. ABDOMEN: Soft, no tenderness. LABS: Hemoglobin is 11.7, white count 10.3. BUN of 107, creatinine 5.34. Sputum has been negative for resistant pathogen. The patient did have a chest x-ray, progressive perihilar and basal infiltrate with small effusion. DIAGNOSTIC IMPRESSION AND PLAN: Patient with acute respiratory failure which is multifactorial in this patient who diminished have a component of pneumonia with concern for possible stenotic versus aspiration. Sputum has been negative for any resistant pathogen. Will switch him over to Unasyn. Continue on . Discontinue Levaquin and Zosyn and monitor his clinical course closely. Overall prognosis remains to be guarded. MMODL / IJN: [id number] /
[2020-03-31 17:21] LABS: Glucose,Whole Blood 92 mg/dL (75-99)
[2020-03-31] MEDS ORDERED: HEPARIN SODIUM 1,000 UN/ML (10ML VL) ONE (18:00)
[2020-03-31] MEDS ORDERED: LIDOCAINE 1% INJ 10MG/ML (20 ML MDV) ONE (18:00)
[2020-03-31] MEDS ORDERED: HEPARIN SODIUM,PORCINE 5,000 UNIT/ML 1 ML VIAL ONE (18:45)
--- NOTE | 2020-03-31 20:23 | OP ---
OPERATIVE REPORT PREOPERATIVE DIAGNOSIS: Acute on chronic renal failure. PROCEDURE: Change of nonfunctional dialysis catheter. PROCEDURE DESCRIPTION: The patient was seen in the intensive care unit. Right groin was prepped and draped in usual sterile manner and 1% lidocaine was infiltrated. A guidewire was passed through the catheter and then we removed the old catheter. We placed a new 2-lumen dialysis catheter on the top of the guidewire. The guidewire was removed, flushed with heparin saline and hep-locked, secured with 3-0 nylon. Patient tolerated the procedure well. MMODL / IJN: [id number] /
[2020-03-31] MEDS: AMPICILLIN-SULBACTAM 3 GM in SODIUM CHLORIDE 0.9% 100 ML IVPB SCH (21:43)
[2020-04-01] LABS: Glucose,Whole Blood 79 mg/dL (75-99)
[2020-04-01] MEDS: INSULIN ASPART (NovoLOG) 100 UNIT/ML VIAL SQ SCH ×4 (00:01→19:36)
[2020-04-01 01:36] LABS: Glucose,Whole Blood 76 mg/dL (75-99)
[2020-04-01 03:21] LABS: Glucose,Whole Blood 91 mg/dL (75-99)
[2020-04-01] MEDS: HEPARIN SOD,PORK IN 0.45% NACL 25,000 UNIT in 0.45% NACL 1 250ML.BAG IV SCH (03:23)
[2020-04-01 04:05] LABS: Basophils # (A) 0.1 k/uL (0-0.2); Basophils % (A) 0 %; Eosinophils # (A) 0.1 k/uL (0-0.7); Eosinophils % (A) 1 %; HCT 36.4 % (39.0-53.0); HGB 12.4 gm/dL (13.0-17.5); Lymphocytes # (A) 0.5 k/uL (1.0-4.8); Lymphocytes % (A) 3 %; MCH 32.1 pg (25.0-35.0); MCHC 34.1 g/dL (31.0-37.0); MCV 94.3 fL (80.0-100.0); Mean Platelet Volume 8.6; Monocytes # (A) 0.5 k/uL (0-1.0); Monocytes % (A) 3 %; Neutrophils # (A) 14.8 k/uL (1.3-7.7); Neutrophils % (A) 93 %; Platelet Count 250 k/uL (150-450); RBC 3.86 m/uL (4.30-5.90); RDW 14.3 % (11.5-15.5)
[2020-04-01 04:18] LABS: Albumin 2.3 g/dL (3.5-5.0); Calcium 7.9 mg/dL (8.4-10.2); Potassium 5.3 mmol/L (3.5-5.1); Total Bilirubin 1.2 mg/dL (0.2-1.3); Total Protein 4.8 g/dL (6.3-8.2)
[2020-04-01 04:46] LABS: Phosphorus 12.4 mg/dL (2.5-4.5)
[2020-04-01 04:55] LABS: ABG Base Excess -4.6 mmol/L; ABG HCO3 21 mmol/L (21-25); ABG Oxygen Saturation 95.9 % (94-97); ABG PCO2 37 mmHg (35-45); ABG PH 7.36 (7.35-7.45); ABG PO2 110 mmHg (83-108); ABG TCO2 22 mmol/L (19-24)
[2020-04-01] MEDS: fentaNYL (PF) 1,000 MCG in SODIUM CHLORIDE 0.9% 80 ML IV SCH (05:28)
[2020-04-01 05:33] LABS: Glucose,Whole Blood 85 mg/dL (75-99)
[2020-04-01] MEDS: CALCIUM ACETATE 667 MG TAB PO SCH ×3 (06:38→21:11)
[2020-04-01] MEDS: IPRATROPIUM-ALBUTEROL 3 ML NEB INHALATION SCH ×4 (07:20→20:11)
--- NOTE | 2020-04-01 07:36 | XR ---
EXAMINATION TYPE: XR chest 1V portable DATE OF EXAM: 04/01/2020 CLINICAL HISTORY: Difficulty breathing progress study. TECHNIQUE: Single AP portable semiupright view of the chest is obtained. COMPARISON: Chest x-ray from one day earlier and older studies FINDINGS: Stable right-sided PICC line. Stable endotracheal tube, orogastric tube, and right agriculture internship al jugular central venous catheter. Stable mild cardiomegaly. Persistent bibasilar opacities . Old fracture deformity right clavicle rede monstrated. IMPRESSION: Continued cardiomegaly with small to moderate size bilateral pleural effusions and mild c entral vascular congestion along with associated bibasilar atelectasis and/or infiltrate. No signific ant interval change from one day earlier.
[2020-04-01] MEDS: CHLORHEXIDINE GLUCONATE 15 ML CUP MUCOUS MEM SCH ×2 (08:02→21:10)
[2020-04-01] MEDS: ASPIRIN 81 MG PO SCH (08:02)
[2020-04-01] MEDS: AMPICILLIN-SULBACTAM 3 GM in SODIUM CHLORIDE 0.9% 100 ML IVPB SCH ×2 (08:02→21:12)
[2020-04-01] MEDS: INSULIN DETEMIR (LEVEMIR) 100 UNIT/ML SYR SQ SCH (08:02)
[2020-04-01] MEDS: CLEVIDIPINE BUTYRATE 25 MG in EMPTY BAG 1 BAG IV SCH (08:03)
[2020-04-01] MEDS: SODIUM BICARBONATE TAB 650 MG TAB PO SCH ×2 (08:03→21:10)
[2020-04-01] MEDS: ATORVASTATIN 40 MG TAB PO SCH (08:03)
[2020-04-01] MEDS: PANTOPRAZOLE 40 MG/10 ML VIAL IVP SCH ×2 (08:03→21:11)
--- NOTE | 2020-04-01 08:40 | P.PN ---
Subjective Patient is seen in follow-up for acute kidney injury, currently hemodialysis dependent. Off vasopressors. Receiving tube feeding. Intubated. 45% FiO2 support. Oliguric. Potassium level improved. Tolerated 4 L ultrafiltration yesterday. Vital signs are stable. General: Intubated. OG tube noted. HEENT: No JVD. LUNGS: Breath sounds decreased. HEART: Rate and Rhythm are regular. ABDOMEN: Soft. No gross distention. EXTREMITITES: 1+ edema. Scrotal edema noted. Objective - Vital Signs Vital signs: Vital Signs Temp 98.7 F 04/01/20 04:00 Pulse 87 04/01/20 07:44 Resp 26 H 04/01/20 07:00 BP 107/53 04/01/20 07:00 Pulse Ox 95 04/01/20 07:00 Intake & Output 03/31/20 04/01/20 04/01/20 18:59 06:59 18:59 Intake Total 9993.561 4396.518 118.657 Output Total 4005 20 5 Balance -2891.946 1290.518 113.657 Weight 118.1 kg 115.4 kg Intake: IV 408 399 26 0.9 NACL 110 230 20 50% Dextrose Amp 50 Ampicillin-Sulbactam 3 gm 100 In Sodium Chloride 0.9% 100 ml @ 200 mls/hr IVPB Q12HR [facility] Rx#:[id number] Piperacillin-Tazobactam 3 100 .375 gm In Sodium Chloride 0.9% 100 ml @ 25 mls/hr IVPB Q12HR [facility] Rx #:[id number] Pressure bag 48 69 6 Sodium Bicarb Amp 100 Intake, IV Titration 391.054 477.518 48.657 Amount Calcium Gluconate 1 gm In 100 Sodium Chloride 0.9% 100 ml @ 100 mls/hr IVPB ONCE ONE Rx#:[id number] fentaNYL (PF) 1,000 mcg 76.397 178.507 In Sodium Chloride 0.9% 80 ml @ Per Protocol IV . Q0M [facility] Rx#:[id number] propofoL 500 mg In Empty 214.657 299.011 48.657 Bag 1 bag @ Titrate IV . Q0M [facility] Rx#:[id number] Tube Feeding 194 344 44 Other 120 90 Output: Urine 5 20 5 Hemodialysis 4000 Other: Voiding Method Indwelling Catheter Indwelling Catheter ABP, PAP, CO, CI - Last Documented Arterial Blood Pressure 105/45 - Labs CBC & Chem 7: 04/01/20 04:00 04/01/20 04:00 Labs: Abnormal Lab Results - Last 24 Hours (Table) 03/31/20 03/31/20 03/31/20 Range/Units 11:39 17:20 23:57 WBC (3.8-10.6) k/uL RBC (4.30-5.90) m/uL Hgb (13.0-17.5) gm/dL Hct (39.0-53.0) % Neutrophils # (1.3-7.7) k/uL Lymphocytes # (1.0-4.8) k/uL ABG pO2 (83-108) mmHg Sodium (137-145) mmol/L Potassium 5.3 H 5.2 H (3.5-5.1) mmol/L Carbon Dioxide (22-30) mmol/L BUN (9-20) mg/dL Creatinine (0.66-1.25) mg/dL POC Glucose (mg/dL) 116 H (75-99) mg/dL Calcium (8.4-10.2) mg/dL Phosphorus (2.5-4.5) mg/dL AST (17-59) U/L ALT (4-49) U/L Alkaline Phosphatase (38-126) U/L Total Protein (6.3-8.2) g/dL Albumin (3.5-5.0) g/dL 04/01/20 04/01/20 04/01/20 Range/Units 04:00 04:00 04:50 WBC 16.0 H (3.8-10.6) k/uL RBC 3.86 L (4.30-5.90) m/uL Hgb 12.4 L (13.0-17.5) gm/dL Hct 36.4 L (39.0-53.0) % Neutrophils # 14.8 H (1.3-7.7) k/uL Lymphocytes # 0.5 L (1.0-4.8) k/uL ABG pO2 110 H (83-108) mmHg Sodium 131 L (137-145) mmol/L Potassium 5.3 H (3.5-5.1) mmol/L Carbon Dioxide 18 L (22-30) mmol/L BUN 108 H* (9-20) mg/dL Creatinine 4.96 H (0.66-1.25) mg/dL POC Glucose (mg/dL) (75-99) mg/dL Calcium 7.9 L (8.4-10.2) mg/dL Phosphorus 12.4 H* (2.5-4.5) mg/dL AST 93 H (17-59) U/L ALT 89 H (4-49) U/L Alkaline Phosphatase 156 H (38-126) U/L Total Protein 4.8 L (6.3-8.2) g/dL Albumin 2.3 L (3.5-5.0) g/dL Assessment and Plan Plan: Assessment: 1. Acute kidney injury secondary to ATN secondary to septic shock. Currently hemodialysis dependent. Oliguric. 2. Septic shock most likely secondary to pneumonia maintained on antibiotics. 3. Volume overload. 4. Metabolic acidosis secondary to acute kidney injury. Maintained on oral bicarb. 5. Hyperphosphatemia secondary to acute kidney injury maintained on PhosLo. 6. Hyperkalemia secondary to acute kidney injury and metabolic acidosis. Better. 7. Hyponatremia secondary to acute kidney injury. Hypervolemic. Plan: Continue with daily dialysis. Wean FiO2. Continue to monitor for renal recovery. Increase dose of PhosLo.
--- NOTE | 2020-04-01 09:04 | P.PN ---
Subjective Progress Note Date: 04/01/20 Principal diagnosis: Respiratory failure Reevaluated today on 03/28/2020, patient remains in the ICU, intubated and mechanically ventilated. Remains on the same ventilator settings, assist control rate of 26 tidal volume is 450 FiO2 50% PEEP of 14. ABG showed a pO2 of 89 pCO2 of 34 pH of 7.41, hence no change was made in the ventilator settings. However I noticed some leak around the endotracheal tube, and recommended respiratory to have more air in the cough, and adjustment of the endotracheal tube placement. Patient is on multiple drips including fentanyl 0.25 mcg/kg/h, norepinephrine is at 0.05 mcg/kg/m. Propofol at 60 mcg/kg/m. Heparin drip, insulin 5 units per hour drip, and bicarb drip at 75 mL per hour. Patient is back on enteral feeding since he responded well to lactulose, and had multiple bowel movements now he has a fecal management system. In place. Patient went into atrial fibrillation around 4:30 AM, however his rate seems to be fairly well controlled, and basically on heparin only. Underwent SLED yesterday, and was tolerated, 200 mL oFF. Chest x-ray continues to show bilateral interstitial infiltrates, consistent with ARDS. Although the possibility of interstitial edema/fluid overload secondary to renal failure and oliguria. Is not entirely ruled out. Microbiology from sputum and blood remains nondiagnostic. titer for Francisella is pending. CBC is normal WBC count is 7.6 hemoglobin is 10.8. PTT is 53.3. Liver enzymes remain slightly elevated. Repeat pro-calcitonin is pending. Urine Legionella antigen is negative On 03/29/2020 patient seen in follow-up in the intensive care unit, patient remains sedated, and intubated on mechanical ventilator current vent settings are assist control mode of ventilation with a rate of 26, tidal -450, FiO2 of 50% and PEEP of 14 this morning blood gases were reviewed showing pO2 112, pCO2 39 pH of 7.39 and subsequently FiO2 was dropped down to 45%. Is on multiple IV was including 0.9 normal saline at rate of 50 ML per hour, fentanyl at 0.5 mcg/kg/h, insulin at 3 units per hour, Diprivan is at 65 mics per kilogram per minute, levophed is at 4 mics per minute. Patient's tube feedings have been on hold since yesterday related to episode of coffee-ground emesis. Today's hemogl obin is 10.9, white blood cell count of 7.9, significantly improved from a few days ago, PTT is 43.4, sodium is 136, potassium is 5.1, CO2 is 21, chloride is 97, B1 is 92, creatinine is 6.52, patient had hemodialysis treatment yesterday and 1 L of fluid was removed. Nephrology is following, and patient is anticipated to have hemodialysis with ultrafiltration. Today's chest x-ray shows cardiomegaly with bilateral lower lung multifocal acute infiltrates and/or atelectasis and small bilateral pleural effusions and bilateral central vascular congestion. Patient also appears to be generally fluid overloaded. Vasopressor requirements have significantly improved from a few days ago. Blood and sputum cultures have shown no growth thus far. Continue urine antigen was negative, influenza and COVID 19 PCR were negative, awaiting results of the Francisella tularensis antibody test On 03/30/2020 patient seen in follow-up in the intensive care unit, he remains sedated and intubated on mechanical ventilator current vent settings are assist control mode of ventilation with a rate of 26, tidal volumes 450 FiO2 45% and PEEP of 14. This morning his blood gases have been reviewed showing pO2 of 113, pCO2 of 36 and pH of 7.38. PEEP was then dropped to 10. Patient IVs include 0.9 normal saline at a rate of 50 ML per hour, Diprivan is a 65 mics per kilo per minute, fentanyl drip is 0.5 mics per kilo per minute, insulin drip is at 3 units per hour. Tube feedings in the form of vital high-protein at a rate of 12 mL an hour, and the goal is 12. Today's labs have been reviewed, pro-calcitonin has improved although still significantly elevated at 59.06, cultures have been reviewed including blood and sputum cultures, and remain negative thus far, patient remains on doxycycline, Levaquin, and Zosyn, ID service is following. White blood cell count is 6.3, hemoglobin is 10.9, sodium is 131, potassium is 5.8, chloride is 97, CO2 is 18, B1 is 100, and creatinine is 5.5. Remains in anuric, he had hemodialysis yesterday with removal of 1 L of fluid. Today's chest x-ray has been reviewed showing improving right lower lobe infiltrate. No acute events overnight, patient has not had any further bleeding, tolerating tube feedings well. Has been afebrile. Not requiring any vasopressor support. Progress note dated 03/31/2020. 70-year-old male again seen in the intensive care unit. The patient remains intubated and mechanically ventilated. He is on the volume assist control mo dality, rate 26, tidal volume 450, FiO2 45%, but 10. Arterial blood gases show a PaO2 of 100, PaCO2 of 34, pH is 7.38. The patient's currently on saline 10 mL an hour, fentanyl drip at 1 mcg/kg per hour, propofol at 70 mcg/kg/m, and vital high protein at 12 cc per hour, which is goal. His Francisella tularensis antibody test was negative. I believe the patient is a good candidate today for a daily interruption of sedation and a spontaneous trial potentially. We planned to think about doing a bronchoscopy on the patient today for sampling, but it was not done yesterday. The patient is not requiring any blood pressure support. White count is 10.3, hemoglobin 11.7, hematocrit 34.6, and platelet count 217,000. Sodium was 1:30, potassium 6.1, chloride 96, CO2 17, anion gap 17, and BUN of 107 with a creatinine of 5.34. His albumin is 2.3. AST is 89, ALT is 85. Microbiologic studies were negative. Chest x-ray could not be retrieved, and the official report is pending. The patient remains on Levaquin, doxycycline, and Zosyn. Progress note dated 04/01/2020. 70-year-old male, again seen in the intensive care unit today. The patient remained on the ventilator overnight. Yesterday, he apparently attempted a daily eruption of sedation and a spontaneous breathing trial, and the patient apparently became hypertensive and he was recently dated. Nobody told me of this. I did tell them today again to do another daily eruption of sedation and a spontaneous breathing trial. The patient should be on pressure support of 10, CPAP of 5, and if his blood pressure goes up, they should use Cleveprex to control it. He did have hemodialysis yesterday, 4 L was removed. He still has significant scrotal edema. Currently, he is on the volume assist control modality, rate 26, tidal volume 450, FiO2 45%, and a PEEP of 10. Arterial blood gases show a PaO2 of 110, PaCO2 37, and a pH 7.36. The patient remains on propofol at 40 g kilogram per minute, fentanyl at 1 mcg/kg/h, saline at KVO, and vital high protein at goal, which is 44 mL an hour. Objective - Vital Signs Vital signs: Vital Signs Temp 98.7 F 04/01/20 04:00 Pulse 87 04/01/20 07:44 Resp 26 H 04/01/20 07:00 BP 107/53 04/01/20 07:00 Pulse Ox 95 04/01/20 07:00 Intake & Output 03/31/20 04/01/20 04/01/20 18:59 06:59 18:59 Intake Total 1162.136 4122.518 168.657 Output Total 4005 20 5 Balance -2891.946 1290.518 163.657 Weight 118.1 kg 115.4 kg Intake: IV 408 399 26 0.9 NACL 110 230 20 50% Dextrose Amp 50 Ampicillin-Sulbactam 3 gm 100 In Sodium Chloride 0.9% 100 ml @ 200 mls/hr IVPB Q12HR [facility] Rx#:[id number] Piperacillin-Tazobactam 3 100 .375 gm In Sodium Chloride 0.9% 100 ml @ 25 mls/hr IVPB Q12HR [facility] Rx #:[id number] Pressure bag 48 69 6 Sodium Bicarb Amp 100 Intake, IV Titration 391.054 477.518 98.657 Amount Calcium Gluconate 1 gm In 100 Sodium Chloride 0.9% 100 ml @ 100 mls/hr IVPB ONCE ONE Rx#:[id number] fentaNYL (PF) 1,000 mcg 76.397 178.507 In Sodium Chloride 0.9% 80 ml @ Per Protocol IV . Q0M [facility] Rx#:[id number] propofoL 500 mg In Empty 214.657 299.011 98.657 Bag 1 bag @ Titrate IV . Q0M [facility] Rx#:[id number] Tube Feeding 194 344 44 Other 120 90 Output: Urine 5 20 5 Hemodialysis 4000 Other: Voiding Method Indwelling Catheter Indwelling Catheter ABP, PAP, CO, CI - Last Documented Arterial Blood Pressure 105/45 - Exam No acute distress, sedated, intubated, on mechanical ventilator. HEENT examination is grossly unremarkable. Mucous membranes are moist. No oral lesions. Neck supple. Full range of motion. No adenopathy thyromegaly or neck vein distention. Cardiovascular examination reveals regular rhythm rate. S1-S2 normal. No S3 or S4. No discernible murmur noted. Heart sounds are distant. Heart rate is 87 bpm. Lungs reveal bilateral coarse rhonchi. Breath sounds equal. No wheezes or crackles. Abdomen soft and bowel sounds are heard. No masses or tenderness. Extremities are intact. No cyanosis clubbing or edema. Skin is without rash or lesion. Neurologic examination cannot be properly assessed at this time as the patient's heavily sedated. - Labs CBC & Chem 7: 04/01/20 04:00 04/01/20 04:00 Labs: Abnormal Lab Results - Last 24 Hours (Table) 03/31/20 03/31/20 03/31/20 Range/Units 11:39 17:20 23:57 WBC (3.8-10.6) k/uL RBC (4.30-5.90) m/uL Hgb (13.0-17.5) gm/dL Hct (39.0-53.0) % Neutrophils # (1.3-7.7) k/uL Lymphocytes # (1.0-4.8) k/uL ABG pO2 (83-108) mmHg Sodium (137-145) mmol/L Potassium 5.3 H 5.2 H (3.5-5.1) mmol/L Carbon Dioxide (22-30) mmol/L BUN (9-20) mg/dL Creatinine (0.66-1.25) mg/dL POC Glucose (mg/dL) 116 H (75-99) mg/dL Calcium (8.4-10.2) mg/dL Phosphorus (2.5-4.5) mg/dL AST (17-59) U/L ALT (4-49) U/L Alkaline Phosphatase (38-126) U/L Total Protein (6.3-8.2) g/dL Albumin (3.5-5.0) g/dL 04/01/20 04/01/20 04/01/20 Range/Units 04:00 04:00 04:50 WBC 16.0 H (3.8-10.6) k/uL RBC 3.86 L (4.30-5.90) m/uL Hgb 12.4 L (13.0-17.5) gm/dL Hct 36.4 L (39.0-53.0) % Neutrophils # 14.8 H (1.3-7.7) k/uL Lymphocytes # 0.5 L (1.0-4.8) k/uL ABG pO2 110 H (83-108) mmHg Sodium 131 L (137-145) mmol/L Potassium 5.3 H (3.5-5.1) mmol/L Carbon Dioxide 18 L (22-30) mmol/L BUN 108 H* (9-20) mg/dL Creatinine 4.96 H (0.66-1.25) mg/dL POC Glucose (mg/dL) (75-99) mg/dL Calcium 7.9 L (8.4-10.2) mg/dL Phosphorus 12.4 H* (2.5-4.5) mg/dL AST 93 H (17-59) U/L ALT 89 H (4-49) U/L Alkaline Phosphatase 156 H (38-126) U/L Total Protein 4.8 L (6.3-8.2) g/dL Albumin 2.3 L (3.5-5.0) g/dL Assessment and Plan Assessment: #1. 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 Titers for Francisella are negative. Sputum cultures and blood cultures are negative, Legionella urine antigen was negative. Influenza and COVID 19 PCR were negative. He is covered with a combination of Levaquin, Zosyn and doxycycline. #2. Acute septic shock requiring pressors, resolved. #3. Acute ARDS secondary to pneumonia and sepsis #4. Acute kidney injury suspect acute tubular necrosis from hypotension and septic shock, requiring hemodialysis and ultrafiltration #5. Acute diastolic congestive heart failure. Echocardiogram showed no evidence of LV dysfunction and no evidence of pericardial effusion #6. History of underlying coronary artery disease #7. History of hypertension #8. Multiorgan system failure secondary to sepsis and septic shock #9. Ex-smoker #10. New-onset atrial fibrillation, rate is controlled, heparin drip is currently on hold related to episode of coffee-ground emesis, patient is currently back into sinus rhythm with a first-degree AV block #11. Acute ileus, resolved #12. Episode of coffee-ground emesis, hemoglobin is stable at 12.4 Plan: Plan dated 03/31/2020. The patient's antibody testing for tularensis were negative. The patient remains on the volume assist control modality. Blood gases are reasonable with a PaO2 100, PaCO2 34, and pH is 7.38. The patient would probably benefit from a daily eruption of sedation at the very least, and possibly a spontaneous breathing trial. The patient is on a fentanyl at 1 mcg/kg/h and propofol at 70 mcg/kg/m. The patient's receiving enteral nutrition at goal which is 12 mL an hour and vital high protein. Chest x-ray cannot be evaluated today. Labs are reviewed. Prognosis is guarded. We will continue to follow and hopefully move the patient in the direction of weaning and extubation. Plan dated 01/29/2021. The patient remains on the mechanical ventilator. Yesterday, he did have a daily eruption of sedation and a spontaneous breathing trial, he became hypertensive, and the patient was re-sedated. I was not informed. The patient's vent settings are appropriate. When he is off his propofol, the patient will be placed on pressure support of 10 of CPAP of 5. Hemodialysis yesterday was successful in that 4 L was removed. Arterial blood gases show a PaO2 of 110, pCO2 of 37, and pH 7.36. Lab data includes a white count of 16, hemoglobin 12.4, hematocrit 36.4, and a normal platelet count. Sodium 131, potassium 5.3, chlorides 98, CO2 18, anion gap 15, BUN 108, and creatinine 4.96. Chest x-ray is reviewed. The patient will be hemodialyzed today. Additional recommendations suggestions are forthcoming. Prognosis is guarded. Time with Patient: Greater than 30
[2020-04-01 11:32] LABS: Glucose,Whole Blood 75 mg/dL (75-99)
[2020-04-01] MEDS ORDERED: LEVOFLOXACIN 250MG-D5W PMX 250 MG in DEXTROSE/WATER 1 50ML.BAG IVPB SCH (12:00)
--- NOTE | 2020-04-01 13:05 | P.PN ---
Subjective Progress Note Date: 04/01/20 CHIEF COMPLAINT: Ileus HISTORY OF PRESENT ILLNESS: Patient is being followed for an abdominal ileus. He has fecal management system in place. He is in the hospital for pneumonia. He is currently getting hemodialysis in the ICU. He is tolerating his tube feedings. Patient is undergoing mechanical ventilation weaning trial. Patient is Afebrile. WBC 16 PHYSICAL EXAM: VITAL SIGNS: Reviewed. GENERAL: Well-developed in no acute distress. HEENT: No sclera icterus. Extraocular movements grossly intact. Moist buccal mucosa. Head is atraumatic, normocephalic. ABDOMEN: Soft. Nondistended. Nontender. NEUROLOGIC: Patient is intubated ASSESSMENT: 1. Ileus resolved 2. Episode of coffee ground emesis likely due to NG tube irritation, no further episodes PLAN: -Continue supportive care Physician Non Destructive Testing Technician note has been reviewed by physician. Signing provider agrees with the documented findings, assessment, and plan of care. Objective - Vital Signs Vital signs: Vital Signs Temp 98.7 F 04/01/20 08:00 Pulse 88 04/01/20 11:09 Resp 26 H 04/01/20 11:00 BP 117/65 04/01/20 11:00 Pulse Ox 95 04/01/20 11:00 Intake & Output 03/31/20 04/01/20 04/01/20 18:59 06:59 18:59 Intake Total 8616.864 8852.518 424.234 Output Total 4005 20 5 Balance -2891.946 1290.518 419.234 Weight 118.1 kg 115.4 kg 115.4 kg Intake: IV 408 399 130 0.9 NACL 110 230 100 50% Dextrose Amp 50 Ampicillin-Sulbactam 3 gm 100 In Sodium Chloride 0.9% 100 ml @ 200 mls/hr IVPB Q12HR [facility] Rx#:[id number] Piperacillin-Tazobactam 3 100 .375 gm In Sodium Chloride 0.9% 100 ml @ 25 mls/hr IVPB Q12HR [facility] Rx #:[id number] Pressure bag 48 69 30 Sodium Bicarb Amp 100 Intake, IV Titration 391.054 477.518 102.234 Amount Calcium Gluconate 1 gm In 100 Sodium Chloride 0.9% 100 ml @ 100 mls/hr IVPB ONCE ONE Rx#:[id number] fentaNYL (PF) 1,000 mcg 76.397 178.507 In Sodium Chloride 0.9% 80 ml @ Per Protocol IV . Q0M [facility] Rx#:[id number] propofoL 500 mg In Empty 214.657 299.011 102.234 Bag 1 bag @ Titrate IV . Q0M [facility] Rx#:[id number] Tube Feeding 194 344 132 Other 120 90 60 Output: Urine 5 20 5 Hemodialysis 4000 Other: Voiding Method Indwelling Catheter Indwelling Catheter Indwelling Catheter ABP, PAP, CO, CI - Last Documented Arterial Blood Pressure 93/41 - Labs CBC & Chem 7: 04/01/20 04:00 04/01/20 04:00 Labs: Abnormal Lab Results - Last 24 Hours (Table) 03/31/20 03/31/20 04/01/20 Range/Units 17:20 23:57 04:00 WBC 16.0 H (3.8-10.6) k/uL RBC 3.86 L (4.30-5.90) m/uL Hgb 12.4 L (13.0-17.5) gm/dL Hct 36.4 L (39.0-53.0) % Neutrophils # 14.8 H (1.3-7.7) k/uL Lymphocytes # 0.5 L (1.0-4.8) k/uL ABG pO2 (83-108) mmHg Sodium (137-145) mmol/L Potassium 5.3 H 5.2 H (3.5-5.1) mmol/L Carbon Dioxide (22-30) mmol/L BUN (9-20) mg/dL Creatinine (0.66-1.25) mg/dL Calcium (8.4-10.2) mg/dL Phosphorus (2.5-4.5) mg/dL AST (17-59) U/L ALT (4-49) U/L Alkaline Phosphatase (38-126) U/L Total Protein (6.3-8.2) g/dL Albumin (3.5-5.0) g/dL 04/01/20 04/01/20 Range/Units 04:00 04:50 WBC (3.8-10.6) k/uL RBC (4.30-5.90) m/uL Hgb (13.0-17.5) gm/dL Hct (39.0-53.0) % Neutrophils # (1.3-7.7) k/uL Lymphocytes # (1.0-4.8) k/uL ABG pO2 110 H (83-108) mmHg Sodium 131 L (137-145) mmol/L Potassium 5.3 H (3.5-5.1) mmol/L Carbon Dioxide 18 L (22-30) mmol/L BUN 108 H* (9-20) mg/dL Creatinine 4.96 H (0.66-1.25) mg/dL Calcium 7.9 L (8.4-10.2) mg/dL Phosphorus 12.4 H* (2.5-4.5) mg/dL AST 93 H (17-59) U/L ALT 89 H (4-49) U/L Alkaline Phosphatase 156 H (38-126) U/L Total Protein 4.8 L (6.3-8.2) g/dL Albumin 2.3 L (3.5-5.0) g/dL
--- NOTE | 2020-04-01 13:25 | PN ---
PROGRESS NOTE DATE OF SERVICE: 04/01/2020 REASON FOR FOLLOWUP: Pneumonia. INTERVAL HISTORY: The patient is currently afebrile. The patient is hemodynamically stable pressor support. The patient is slightly more awake, opening his eyes and was undergoing hemodialysis. Tolerating his tube feeds. No worsening diarrhea reported by the nursing staff. PHYSICAL EXAMINATION: Blood pressure 117/65, pulse 84, temperature 98. He is 95% on 45% FiO2. General description is an elderly male lying in bed in no distress. RESPIRATORY SYSTEM: Unlabored breathing with decreased breath sounds at bases. No wheeze. HEART: S1, S2. Regular rate and rhythm. ABDOMEN: Soft, no tenderness. LABS: Hemoglobin 12.4 with white count 16,000. BUN of 108, creatinine 4.96. Sputum has been negative. Chest x-ray, cardiomegaly with moderate bilateral pleural effusion. No significant change. DIAGNOSTIC IMPRESSION AND PLAN: Patient with acute respiratory failure which is multifactorial at this point possible component of pneumonia, possible aspiration. Sputum has been negative. Antibiotic was adjusted to Unasyn yesterday and doxycycline was continued now with worsening of his white count, will need to be monitored closely, spiking any fever, cultures will be repeated and antibiotic adjusted. MMODL / IJN: [id number] /
[2020-04-01 15:01] LABS: Hemoglobin A1C 6.1 % (4.0-6.0)
--- NOTE | 2020-04-01 15:25 | P.PN ---
Subjective Progress Note Date: 04/01/20 (delayed charting seen at 0930) Principal diagnosis: chest pain Patient is a 70-year-old male with coronary artery disease, hypertension, dyslipidemia and GERD who initially presented to [facility] with complaints of chest pain. He underwent extensive evaluation in the ER and was found to have a fever of 102. Chest x-ray was negative. CT PE negative. Influ piero and COVID antigen testing were negative. Troponin and EKG did not reveal any signs of acute ischemia. He was admitted for further monitoring. His troponins remained negative. There was still a concern possible Covid 19 and PCR was tested which was negative. He developed worsening respiratory distress overnight on 03/22 and was subsequently started on Decadron, albuterol, and had an additional dose of Motrin secondary to his fevers. Cardiology was consulted for his chest pain and his troponins remained negative. They agreed with need for echocardiogram which showed ejection fraction of 55% with mild valvular disease. On the morning of 03/24 he has not had increased work of breathing and hypoxemia. Legionella urine antigen was ordered, 1 L bolus, and DuoNeb every 2 hours. He continued to decline and was subsequently transferred to the stepdown unit and started on BiPAP therapy requiring Ativan. Later that afternoon he again had worsening hypoxemia and hypotensive and he was subsequently transferred to the ICU and intubated and started on vasopressors. Pulmonary was consulted. They were concern about possible zoonotic infection or tularemia secondary to his recent coyote exposure. Infectious disease was subsequently consulted. He was found to have a pro-calcitonin greater than 2. He was continued on Doxy, Levaquin, and was started on Zosyn. Gentamicin was not added secondary to worsening kidney function. He continued to require vasopressors through 03/29 and those were able to be subsequently weaned. He had one episode of paroxysmal A. fib. He developed worsening renal function throughout his hospital stay. He required hemodialysis which was initiated on 03/27. He developed an ileus and surgery was consulted. He had one episode of coffee-ground NG tube output which was likely secondary to irritation from the nasogastric tube. His potassium remained elevated despite bicarb drip and hemodialysis. His tube feeds were adjusted. Patient seen and examined at bedside. He is sedated on vent and not responsive. Per nursing acute concerns are that HD cath wtih issues today and HD will need to be over a longer time. General: ill apperaing, mild distress, appears at stated age Lines: TLC R IJ, R PICC, R groin HD cath, and R radial art Derm: warm, dry Head: atraumatic, normocephalic, symmetric Eyes: no lid lesion, PERRL, anicteric sclera Mouth: no lip lesion, mucus membranes dry Cardiovascular: S1S2 reg, no murmur, positive posterior tibial pulse bilateral, Lungs: Course SS bilateral, no rhonchi, no rales , no accessory muscle use, on vent Abdominal: soft, distended, nontender to palpation, no guarding, no appreciable organomegaly Ext: no gross muscle atrophy, diffuse anasarca, no contractures Neuro: No tremors, no roving eye movements, no fasciulation, breathing over the vent Psych: sedated on vent, not responsive Acute hypoxic respiratory failure, Pneumonia, ARDS - + procalcitionin - ID and Pulm recs: Doxy, levaquin, zosyn - pulm hygeine - SBT per pulmonary - Flu negative, COVID negative, sputum and blood cultures are negative, Tularemia AB negative will need repeat testing in 2 weeks - Family worried about lymes disease, testing pending - Speckled ALEX. C-ANCA and P-ANCA negative, negative anti GBM - Vent Day # 8 - off steroids 2/3 CODY with hyperkalema secondary to ATN requiring hemodialysis, hyperphosphatemia -Dialysis today -Nephrology following -On oral bicarb -Tube feedings changed to be low potassium containing - phoslo Hyponatremia secondary to fluid overload -Continue to attempt to take off fluids with hemodialysis -Repeat sodium levels in a.m. New-onset paroxysmal A. fib currently maintained in normal sinus rhythm -Cardiology recommendations -On heparin gtt -Not requiring rate or rhythm controlling medications Steroid induced hyperglycemia, improving - off insulin gtt - Decrease Levemir by half, now off steroids -continue with sliding scale - follow BS -A1C 6.1, repeat in 6 months Coffee ground emesis - Resolved X 48 hours - Surgery recs: likely due to NGT - Follow CBC Sepsis, resolved Transaminitis, improving Hypomagnesemia, resolved ileus, resolved Chest pain due to pleurisy, ACS ruled out Chronic: Coronary artery disease GERD Hyperlipidemia DVT prophylaxis: Heparin gtt Discussed with: nursing, Anticipated discharge: unknown Anticipated discharge place: SNF VS [facility] A total of 35 minutes was spent on the care of this complex patient more than 50% of the time was spent in counseling and care coordination. Objective - Vital Signs Vital signs: Vital Signs Temp 98.7 F 04/01/20 13:58 Pulse 91 04/01/20 15:05 Resp 26 H 04/01/20 14:00 BP 130/69 04/01/20 14:00 Pulse Ox 96 04/01/20 14:00 Intake & Output 03/31/20 04/01/20 04/01/20 18:59 06:59 18:59 Intake Total 5339.070 5033.518 670.536 Output Total 4005 20 3505 Balance -2891.946 1290.518 -2834.464 Weight 118.1 kg 115.4 kg 115.4 kg Intake: IV 408 399 208 0.9 NACL 110 230 160 50% Dextrose Amp 50 Ampicillin-Sulbactam 3 gm 100 In Sodium Chloride 0.9% 100 ml @ 200 mls/hr IVPB Q12HR ADAM Rx#:[id number] Piperacillin-Tazobactam 3 100 .375 gm In Sodium Chloride 0.9% 100 ml @ 25 mls/hr IVPB Q12HR ADAM Rx #:[id number] Pressure bag 48 69 48 Sodium Bicarb Amp 100 Intake, IV Titration 391.054 477.518 192.536 Amount Calcium Gluconate 1 gm In 100 Sodium Chloride 0.9% 100 ml @ 100 mls/hr IVPB ONCE ONE Rx#:[id number] Clevidipine Butyrate 25 0.9 mg In Empty Bag 1 bag @ 1 MG/HR 2 mls/hr IV .Q24H ADAM Rx#:[id number] fentaNYL (PF) 1,000 mcg 76.397 178.507 89.402 In Sodium Chloride 0.9% 80 ml @ Per Protocol IV . Q0M ADAM Rx#:[id number] propofoL 500 mg In Empty 214.657 299.011 102.234 Bag 1 bag @ Titrate IV . Q0M ADAM Rx#:[id number] Tube Feeding 194 344 180 Other 120 90 90 Output: Urine 5 20 5 Hemodialysis 4000 3500 Other: Voiding Method Indwelling Catheter Indwelling Catheter Indwelling Catheter ABP, PAP, CO, CI - Last Documented Arterial Blood Pressure 116/50 - Labs CBC & Chem 7: 04/01/20 04:00 04/01/20 04:00 Labs: Abnormal Lab Results - Last 24 Hours (Table) 03/31/20 03/31/20 04/01/20 Range/Units 17:20 23:57 04:00 WBC (3.8-10.6) k/uL RBC (4.30-5.90) m/uL Hgb (13.0-17.5) gm/dL Hct (39.0-53.0) % Neutrophils # (1.3-7.7) k/uL Lymphocytes # (1.0-4.8) k/uL ABG pO2 (83-108) mmHg Sodium (137-145) mmol/L Potassium 5.3 H 5.2 H (3.5-5.1) mmol/L Carbon Dioxide (22-30) mmol/L BUN (9-20) mg/dL Creatinine (0.66-1.25) mg/dL Hemoglobin A1c 6.1 H (4.0-6.0) % Calcium (8.4-10.2) mg/dL Phosphorus (2.5-4.5) mg/dL AST (17-59) U/L ALT (4-49) U/L Alkaline Phosphatase (38-126) U/L Total Protein (6.3-8.2) g/dL Albumin (3.5-5.0) g/dL 04/01/20 04/01/20 04/01/20 Range/Units 04:00 04:00 04:50 WBC 16.0 H (3.8-10.6) k/uL RBC 3.86 L (4.30-5.90) m/uL Hgb 12.4 L (13.0-17.5) gm/dL Hct 36.4 L (39.0-53.0) % Neutrophils # 14.8 H (1.3-7.7) k/uL Lymphocytes # 0.5 L (1.0-4.8) k/uL ABG pO2 110 H (83-108) mmHg Sodium 131 L (137-145) mmol/L Potassium 5.3 H (3.5-5.1) mmol/L Carbon Dioxide 18 L (22-30) mmol/L BUN 108 H* (9-20) mg/dL Creatinine 4.96 H (0.66-1.25) mg/dL Hemoglobin A1c (4.0-6.0) % Calcium 7.9 L (8.4-10.2) mg/dL Phosphorus 12.4 H* (2.5-4.5) mg/dL AST 93 H (17-59) U/L ALT 89 H (4-49) U/L Alkaline Phosphatase 156 H (38-126) U/L Total Protein 4.8 L (6.3-8.2) g/dL Albumin 2.3 L (3.5-5.0) g/dL
[2020-04-01] MEDS ORDERED: HEPARIN SODIUM,PORCINE 5,000 UNIT/ML 1 ML VIAL ONE (17:00)
[2020-04-01] MEDS: NOREPINEPHRINE 8 MG in SODIUM CHLORIDE 0.9% 250 ML IV SCH (17:29)
[2020-04-01] MEDS ORDERED: DEXTROSE 50% SYRINGE 50 ML IVP ONE (18:08)
[2020-04-01 18:09] LABS: Glucose,Whole Blood 64 mg/dL (75-99)
[2020-04-01 18:31] LABS: Glucose,Whole Blood 99 mg/dL (75-99)
[2020-04-01] MEDS ORDERED: INSULIN DETEMIR (LEVEMIR) 100 UNIT/ML SYR SQ SCH (21:00)
[2020-04-01] MEDS: DOXYCYCLINE 100 MG CAP PO SCH (21:13)
[2020-04-01 21:33] LABS: Glucose,Whole Blood 69 mg/dL (75-99)
[2020-04-01 22:12] LABS: Glucose,Whole Blood 106 mg/dL (75-99)
[2020-04-02 00:05] LABS: Glucose,Whole Blood 71 mg/dL (75-99)
[2020-04-02] MEDS: INSULIN ASPART (NovoLOG) 100 UNIT/ML VIAL SQ SCH ×4 (00:40→18:03)
[2020-04-02 05:10] LABS: HCT 32.3 % (39.0-53.0); HGB 11.1 gm/dL (13.0-17.5); MCH 31.9 pg (25.0-35.0); MCHC 34.3 g/dL (31.0-37.0); MCV 93.1 fL (80.0-100.0); Mean Platelet Volume 8.8; Platelet Count 194 k/uL (150-450); RBC 3.47 m/uL (4.30-5.90); RDW 14.1 % (11.5-15.5); WBC 18.1 k/uL (3.8-10.6)
[2020-04-02 05:19] LABS: Albumin 2.6 g/dL (3.5-5.0); Calcium 8.3 mg/dL (8.4-10.2); Potassium 4.7 mmol/L (3.5-5.1); Total Protein 5.7 g/dL (6.3-8.2)
[2020-04-02 05:38] LABS: ABG Base Excess 0.1 mmol/L; ABG HCO3 24 mmol/L (21-25); ABG PCO2 36 mmHg (35-45); ABG PH 7.43 (7.35-7.45); ABG PO2 140 mmHg (83-108); ABG TCO2 25 mmol/L (19-24); Allen Test Performed? Yes
[2020-04-02 06:37] LABS: Glucose,Whole Blood 85 mg/dL (75-99)
[2020-04-02] MEDS: HEPARIN SOD,PORK IN 0.45% NACL 25,000 UNIT in 0.45% NACL 1 250ML.BAG IV SCH ×2 (06:39→13:44)
[2020-04-02] MEDS ORDERED: INSULIN DETEMIR (LEVEMIR) 100 UNIT/ML SYR SQ SCH (07:00)
[2020-04-02] MEDS: IPRATROPIUM-ALBUTEROL 3 ML NEB INHALATION SCH ×4 (07:17→21:03)
--- NOTE | 2020-04-02 07:28 | XR ---
EXAMINATION TYPE: XR chest 1V portable DATE OF EXAM: 04/02/2020 CLINICAL HISTORY: Difficulty breathing and pneumonia progress study. TECHNIQUE: Single AP portable semiupright view of the chest is obtained. COMPARISON: Chest x-ray from one day earlier and older studies. FINDINGS: Stable right-sided PICC line. Stable endotracheal tube, orogastric tube, and right consultant intern al jugular central venous catheter. Stable mild cardiomegaly in the upper sclerotic change aortic knob. Persistent bibasilar opacities . Old fracture deformity right clavicle redemonstrated. IMPRESSION: Continued cardiomegaly with small left greater than right bilateral pleural effusions and associated bibasilar atelectasis and/or infiltrate. Some interval improvement in central vascular co ngestion and bilateral pleural effusions from one day earlier.
[2020-04-02] MEDS: CLEVIDIPINE BUTYRATE 25 MG in EMPTY BAG 1 BAG IV SCH ×2 (08:32→21:29)
[2020-04-02] MEDS: CALCIUM ACETATE 667 MG TAB PO SCH ×3 (08:37→17:31)
[2020-04-02] MEDS: ASPIRIN 81 MG PO SCH (08:37)
[2020-04-02] MEDS: PANTOPRAZOLE 40 MG/10 ML VIAL IVP SCH ×2 (08:38→21:34)
[2020-04-02] MEDS: DOXYCYCLINE 100 MG CAP PO SCH (08:38)
[2020-04-02] MEDS: SODIUM BICARBONATE TAB 650 MG TAB PO SCH ×2 (08:38→20:39)
[2020-04-02] MEDS: ATORVASTATIN 40 MG TAB PO SCH (08:38)
[2020-04-02] MEDS: CHLORHEXIDINE GLUCONATE 15 ML CUP MUCOUS MEM SCH (08:38)
[2020-04-02] MEDS: AMPICILLIN-SULBACTAM 3 GM in SODIUM CHLORIDE 0.9% 100 ML IVPB SCH ×2 (08:38→22:39)
--- NOTE | 2020-04-02 10:21 | P.PN ---
Subjective Patient is seen in follow-up for acute kidney injury, currently hemodialysis dependent. Blood pressure has been labile. Currently on low-dose Levophed. Tolerating dialysis well. Receiving tube feeding. Intubated. 45% FiO2 support. Oliguric. Potassium level improved. Tolerated 3.5 L ultrafiltration yesterday. Vital signs are stable. General: Intubated. OG tube noted. HEENT: No JVD. LUNGS: Breath sounds decreased. HEART: Rate and Rhythm are regular. ABDOMEN: Soft. No gross distention. EXTREMITITES: 1+ edema. Scrotal edema noted. Objective - Vital Signs Vital signs: Vital Signs Temp 99.1 F 04/02/20 08:00 Pulse 85 04/02/20 09:00 Resp 28 H 04/02/20 09:00 BP 128/58 04/02/20 09:00 Pulse Ox 97 04/02/20 09:00 Intake & Output 04/01/20 04/02/20 04/02/20 18:59 06:59 18:59 Intake Total 874.863 651.466 465.446 Output Total 3505 11 0 Balance -2630.137 640.466 465.446 Weight 115.4 kg 112.2 kg Intake: IV 312 282 148 0.9 NACL 240 110 30 Ampicillin-Sulbactam 3 gm 100 100 In Sodium Chloride 0.9% 100 ml @ 200 mls/hr IVPB Q12HR ADAM Rx#:[id number] Pressure bag 72 72 18 Intake, IV Titration 198.863 27.466 194.446 Amount Clevidipine Butyrate 25 0.9 mg In Empty Bag 1 bag @ 1 MG/HR 2 mls/hr IV .Q24H ADAM Rx#:[id number] Heparin Sod,Pork in 0.45% 0 185.812 NaCl 25,000 unit In 0.45 % NaCl 1 250ml.bag @ 8 UNITS/KG/HR 8.944 mls/hr IV .Q24H ADAM Rx#: [id number] Norepinephrine 8 mg In 6.327 27.466 8.634 Sodium Chloride 0.9% 250 ml @ 0.05 MCG/KG/MIN 11. 165 mls/hr IV .Q23H7M ADAM Rx#:[id number] fentaNYL (PF) 1,000 mcg 89.402 In Sodium Chloride 0.9% 80 ml @ Per Protocol IV . Q0M ADAM Rx#:[id number] propofoL 500 mg In Empty 102.234 Bag 1 bag @ Titrate IV . Q0M ADAM Rx#:[id number] Tube Feeding 244 192 48 Other 120 150 75 Output: Urine 5 11 0 Hemodialysis 3500 Other: Voiding Method Indwelling Catheter Indwelling Catheter Indwelling Catheter ABP, PAP, CO, CI - Last Documented Arterial Blood Pressure 166/58 - Labs CBC & Chem 7: 04/02/20 04:50 04/02/20 04:50 Labs: Abnormal Lab Results - Last 24 Hours (Table) 04/01/20 04/01/20 04/01/20 Range/Units 04:00 18:07 21:31 WBC (3.8-10.6) k/uL RBC (4.30-5.90) m/uL Hgb (13.0-17.5) gm/dL Hct (39.0-53.0) % APTT (22.0-30.0) sec ABG pO2 (83-108) mmHg ABG Total CO2 (19-24) mmol/L BUN (9-20) mg/dL Creatinine (0.66-1.25) mg/dL POC Glucose (mg/dL) 64 L 69 L (75-99) mg/dL Hemoglobin A1c 6.1 H (4.0-6.0) % Calcium (8.4-10.2) mg/dL AST (17-59) U/L ALT (4-49) U/L Alkaline Phosphatase (38-126) U/L Total Protein (6.3-8.2) g/dL Albumin (3.5-5.0) g/dL 04/01/20 04/01/20 04/02/20 Range/Units 22:10 23:27 00:03 WBC (3.8-10.6) k/uL RBC (4.30-5.90) m/uL Hgb (13.0-17.5) gm/dL Hct (39.0-53.0) % APTT 64.4 H (22.0-30.0) sec ABG pO2 (83-108) mmHg ABG Total CO2 (19-24) mmol/L BUN (9-20) mg/dL Creatinine (0.66-1.25) mg/dL POC Glucose (mg/dL) 106 H 71 L (75-99) mg/dL Hemoglobin A1c (4.0-6.0) % Calcium (8.4-10.2) mg/dL AST (17-59) U/L ALT (4-49) U/L Alkaline Phosphatase (38-126) U/L Total Protein (6.3-8.2) g/dL Albumin (3.5-5.0) g/dL 04/02/20 04/02/20 04/02/20 Range/Units 04:50 04:50 05:25 WBC 18.1 H (3.8-10.6) k/uL RBC 3.47 L (4.30-5.90) m/uL Hgb 11.1 L (13.0-17.5) gm/dL Hct 32.3 L (39.0-53.0) % APTT 99.5 H (22.0-30.0) sec ABG pO2 (83-108) mmHg ABG Total CO2 (19-24) mmol/L BUN 93 H (9-20) mg/dL Creatinine 4.61 H (0.66-1.25) mg/dL POC Glucose (mg/dL) (75-99) mg/dL Hemoglobin A1c (4.0-6.0) % Calcium 8.3 L (8.4-10.2) mg/dL AST 103 H (17-59) U/L ALT 81 H (4-49) U/L Alkaline Phosphatase 177 H (38-126) U/L Total Protein 5.7 L (6.3-8.2) g/dL Albumin 2.6 L (3.5-5.0) g/dL 04/02/20 Range/Units 05:30 WBC (3.8-10.6) k/uL RBC (4.30-5.90) m/uL Hgb (13.0-17.5) gm/dL Hct (39.0-53.0) % APTT (22.0-30.0) sec ABG pO2 140 H (83-108) mmHg ABG Total CO2 25 H (19-24) mmol/L BUN (9-20) mg/dL Creatinine (0.66-1.25) mg/dL POC Glucose (mg/dL) (75-99) mg/dL Hemoglobin A1c (4.0-6.0) % Calcium (8.4-10.2) mg/dL AST (17-59) U/L ALT (4-49) U/L Alkaline Phosphatase (38-126) U/L Total Protein (6.3-8.2) g/dL Albumin (3.5-5.0) g/dL Assessment and Plan Plan: Assessment: 1. Acute kidney injury secondary to ATN secondary to septic shock. Currently hemodialysis dependent. Oliguric. 2. Septic shock most likely secondary to pneumonia maintained on antibiotics. Currently on low-dose Levophed. 3. Volume overload. Improving with ultrafiltration. 4. Metabolic acidosis secondary to acute kidney injury. Maintained on oral bicarb. 5. Hyperphosphatemia secondary to acute kidney injury maintained on PhosLo. 6. Hyperkalemia secondary to acute kidney injury and metabolic acidosis. Better. 7. Hyponatremia secondary to acute kidney injury. Hypervolemic. Improving with UF. Plan: Currently seen while undergoing hemodialysis. Continue with daily dialysis. Wean FiO2. Potential extubation today. Continue to monitor for renal recovery. Wean Levophed.
--- NOTE | 2020-04-02 10:51 | P.PN ---
Subjective Progress Note Date: 04/02/20 Principal diagnosis: Respiratory failure Reevaluated today on 03/28/2020, patient remains in the ICU, intubated and mechanically ventilated. Remains on the same ventilator settings, assist control rate of 26 tidal volume is 450 FiO2 50% PEEP of 14. ABG showed a pO2 of 89 pCO2 of 34 pH of 7.41, hence no change was made in the ventilator settings. However I noticed some leak around the endotracheal tube, and recommended respiratory to have more air in the cough, and adjustment of the endotracheal tube placement. Patient is on multiple drips including fentanyl 0.25 mcg/kg/h, norepinephrine is at 0.05 mcg/kg/m. Propofol at 60 mcg/kg/m. Heparin drip, insulin 5 units per hour drip, and bicarb drip at 75 mL per hour. Patient is back on enteral feeding since he responded well to lactulose, and had multiple bowel movements now he has a fecal management system. In place. Patient went into atrial fibrillation around 4:30 AM, however his rate seems to be fairly well controlled, and basically on heparin only. Underwent SLED yesterday, and was tolerated, 200 mL oFF. Chest x-ray continues to show bilateral interstitial infiltrates, consistent with ARDS. Although the possibility of interstitial edema/fluid overload secondary to renal failure and oliguria. Is not entirely ruled out. Microbiology from sputum and blood remains nondiagnostic. titer for Francisella is pending. CBC is normal WBC count is 7.6 hemoglobin is 10.8. PTT is 53.3. Liver enzymes remain slightly elevated. Repeat pro-calcitonin is pending. Urine Legionella antigen is negative On 03/29/2020 patient seen in follow-up in the intensive care unit, patient remains sedated, and intubated on mechanical ventilator current vent settings are assist control mode of ventilation with a rate of 26, tidal -450, FiO2 of 50% and PEEP of 14 this morning blood gases were reviewed showing pO2 112, pCO2 39 pH of 7.39 and subsequently FiO2 was dropped down to 45%. Is on multiple IV was including 0.9 normal saline at rate of 50 ML per hour, fentanyl at 0.5 mcg/kg/h, insulin at 3 units per hour, Diprivan is at 65 mics per kilogram per minute, levophed is at 4 mics per minute. Patient's tube feedings have been on hold since yesterday related to episode of coffee-ground emesis. Today's hemogl obin is 10.9, white blood cell count of 7.9, significantly improved from a few days ago, PTT is 43.4, sodium is 136, potassium is 5.1, CO2 is 21, chloride is 97, B1 is 92, creatinine is 6.52, patient had hemodialysis treatment yesterday and 1 L of fluid was removed. Nephrology is following, and patient is anticipated to have hemodialysis with ultrafiltration. Today's chest x-ray shows cardiomegaly with bilateral lower lung multifocal acute infiltrates and/or atelectasis and small bilateral pleural effusions and bilateral central vascular congestion. Patient also appears to be generally fluid overloaded. Vasopressor requirements have significantly improved from a few days ago. Blood and sputum cultures have shown no growth thus far. Continue urine antigen was negative, influenza and COVID 19 PCR were negative, awaiting results of the Francisella tularensis antibody test On 03/30/2020 patient seen in follow-up in the intensive care unit, he remains sedated and intubated on mechanical ventilator current vent settings are assist control mode of ventilation with a rate of 26, tidal volumes 450 FiO2 45% and PEEP of 14. This morning his blood gases have been reviewed showing pO2 of 113, pCO2 of 36 and pH of 7.38. PEEP was then dropped to 10. Patient IVs include 0.9 normal saline at a rate of 50 ML per hour, Diprivan is a 65 mics per kilo per minute, fentanyl drip is 0.5 mics per kilo per minute, insulin drip is at 3 units per hour. Tube feedings in the form of vital high-protein at a rate of 12 mL an hour, and the goal is 12. Today's labs have been reviewed, pro-calcitonin has improved although still significantly elevated at 59.06, cultures have been reviewed including blood and sputum cultures, and remain negative thus far, patient remains on doxycycline, Levaquin, and Zosyn, ID service is following. White blood cell count is 6.3, hemoglobin is 10.9, sodium is 131, potassium is 5.8, chloride is 97, CO2 is 18, B1 is 100, and creatinine is 5.5. Remains in anuric, he had hemodialysis yesterday with removal of 1 L of fluid. Today's chest x-ray has been reviewed showing improving right lower lobe infiltrate. No acute events overnight, patient has not had any further bleeding, tolerating tube feedings well. Has been afebrile. Not requiring any vasopressor support. Progress note dated 03/31/2020. 70-year-old male again seen in the intensive care unit. The patient remains intubated and mechanically ventilated. He is on the volume assist control mo dality, rate 26, tidal volume 450, FiO2 45%, but 10. Arterial blood gases show a PaO2 of 100, PaCO2 of 34, pH is 7.38. The patient's currently on saline 10 mL an hour, fentanyl drip at 1 mcg/kg per hour, propofol at 70 mcg/kg/m, and vital high protein at 12 cc per hour, which is goal. His Francisella tularensis antibody test was negative. I believe the patient is a good candidate today for a daily interruption of sedation and a spontaneous trial potentially. We planned to think about doing a bronchoscopy on the patient today for sampling, but it was not done yesterday. The patient is not requiring any blood pressure support. White count is 10.3, hemoglobin 11.7, hematocrit 34.6, and platelet count 217,000. Sodium was 1:30, potassium 6.1, chloride 96, CO2 17, anion gap 17, and BUN of 107 with a creatinine of 5.34. His albumin is 2.3. AST is 89, ALT is 85. Microbiologic studies were negative. Chest x-ray could not be retrieved, and the official report is pending. The patient remains on Levaquin, doxycycline, and Zosyn. Progress note dated 04/01/2020. 70-year-old male, again seen in the intensive care unit today. The patient remained on the ventilator overnight. Yesterday, he apparently attempted a daily eruption of sedation and a spontaneous breathing trial, and the patient apparently became hypertensive and he was recently dated. Nobody told me of this. I did tell them today again to do another daily eruption of sedation and a spontaneous breathing trial. The patient should be on pressure support of 10, CPAP of 5, and if his blood pressure goes up, they should use Cleveprex to control it. He did have hemodialysis yesterday, 4 L was removed. He still has significant scrotal edema. Currently, he is on the volume assist control modality, rate 26, tidal volume 450, FiO2 45%, and a PEEP of 10. Arterial blood gases show a PaO2 of 110, PaCO2 37, and a pH 7.36. The patient remains on propofol at 40 g kilogram per minute, fentanyl at 1 mcg/kg/h, saline at KVO, and vital high protein at goal, which is 44 mL an hour. Progress note dated 04/02/2020. 70-year-old male, seen in the intensive care unit today. He remains on the mechanical ventilator. He is on the volume assist control mode, rate 26, tidal volume 450, FiO2 45%, PEEP of 10. Arterial blood gases show a PaO2 of 140, PaCO2 36, and a pH is 7.43. The PEEP was dropped from 10-5. The patient's on heparin via weightbase protocol, norepinephrine at 2.2 mcg/m, saline at KVO, and tube feeds with Nepro at 16 mL an hour, which is goal. The patient did have hemodialysis yesterday, and 3-1/2 L was removed. Today, the patient will have a spontaneous breathing trial. He'll be placed on pressure support of 5 and CPAP of 5. The patient's mental status is not great. The patient has been off of sedation for more than 24 hours. White count is 18.1, hemoglobin 11.1, hematocrit 32.3, and platelet count 194,000. PTT is 99.5. Sodium potassium chloride CO2 and anion gap are all normal. BUN is 93, and creatinine is 4.61. Microbiologic studies are negative. Objective - Vital Signs Vital signs: Vital Signs Temp 99.1 F 04/02/20 08:00 Pulse 85 04/02/20 09:00 Resp 28 H 04/02/20 09:00 BP 128/58 04/02/20 09:00 Pulse Ox 97 04/02/20 09:00 Intake & Output 04/01/20 04/02/20 04/02/20 18:59 06:59 18:59 Intake Total 874.863 651.466 465.446 Output Total 3505 11 0 Balance -2630.137 640.466 465.446 Weight 115.4 kg 112.2 kg Intake: IV 312 282 148 0.9 NACL 240 110 30 Ampicillin-Sulbactam 3 gm 100 100 In Sodium Chloride 0.9% 100 ml @ 200 mls/hr IVPB Q12HR [facility] Rx#:[id number] Pressure bag 72 72 18 Intake, IV Titration 198.863 27.466 194.446 Amount Clevidipine Butyrate 25 0.9 mg In Empty Bag 1 bag @ 1 MG/HR 2 mls/hr IV .Q24H AD[facility] Rx#:[id number] Heparin Sod,Pork in 0.45% 0 185.812 NaCl 25,000 unit In 0.45 % NaCl 1 250ml.bag @ 8 UNITS/KG/HR 8.944 mls/hr IV .Q24H AD[facility] Rx#: [id number] Norepinephrine 8 mg In 6.327 27.466 8.634 Sodium Chloride 0.9% 250 ml @ 0.05 MCG/KG/MIN 11. 165 mls/hr IV .Q23H7M [facility] Rx#:[id number] fentaNYL (PF) 1,000 mcg 89.402 In Sodium Chloride 0.9% 80 ml @ Per Protocol IV . Q0M AD[facility] Rx#:[id number] propofoL 500 mg In Empty 102.234 Bag 1 bag @ Titrate IV . Q0M AD[facility] Rx#:[id number] Tube Feeding 244 192 48 Other 120 150 75 Output: Urine 5 11 0 Hemodialysis 3500 Other: Voiding Method Indwelling Catheter Indwelling Catheter Indwelling Catheter ABP, PAP, CO, CI - Last Documented Arterial Blood Pressure 166/58 - Exam No acute distress, intubated, on mechanical ventilator, with poor response to verbal stimuli. HEENT examination is grossly unremarkable. Mucous membranes are moist. No oral lesions. Neck supple. Full range of motion. No adenopathy thyromegaly or neck vein distention. Cardiovascular examination reveals regular rhythm rate. S1-S2 normal. No S3 or S4. No discernible murmur noted. Heart sounds are distant. Heart rate is 85 bpm. Lungs reveal bilateral coarse rhonchi. Breath sounds equal. No wheezes or crackles. Abdomen soft and bowel sounds are heard. No masses or tenderness. Extremities are intact. No cyanosis clubbing or edema. Skin is without rash or lesion. Neurologic examination is difficult to assess given his current level of consciousness. - Labs CBC & Chem 7: 04/02/20 04:50 04/02/20 04:50 Labs: Abnormal Lab Results - Last 24 Hours (Table) 0204/01/20 04/01/20 Range/Units 04:00 18:07 21:31 WBC (3.8-10.6) k/uL RBC (4.30-5.90) m/uL Hgb (13.0-17.5) gm/dL Hct (39.0-53.0) % APTT (22.0-30.0) sec ABG pO2 (83-108) mmHg ABG Total CO2 (19-24) mmol/L BUN (9-20) mg/dL Creatinine (0.66-1.25) mg/dL POC Glucose (mg/dL) 64 L 69 L (75-99) mg/dL Hemoglobin A1c 6.1 H (4.0-6.0) % Calcium (8.4-10.2) mg/dL AST (17-59) U/L ALT (4-49) U/L Alkaline Phosphatase (38-126) U/L Total Protein (6.3-8.2) g/dL Albumin (3.5-5.0) g/dL 04/01/20 04/01/20 04/02/20 Range/Units 22:10 23:27 00:03 WBC (3.8-10.6) k/uL RBC (4.30-5.90) m/uL Hgb (13.0-17.5) gm/dL Hct (39.0-53.0) % APTT 64.4 H (22.0-30.0) sec ABG pO2 (83-108) mmHg ABG Total CO2 (19-24) mmol/L BUN (9-20) mg/dL Creatinine (0.66-1.25) mg/dL POC Glucose (mg/dL) 106 H 71 L (75-99) mg/dL Hemoglobin A1c (4.0-6.0) % Calcium (8.4-10.2) mg/dL AST (17-59) U/L ALT (4-49) U/L Alkaline Phosphatase (38-126) U/L Total Protein (6.3-8.2) g/dL Albumin (3.5-5.0) g/dL 04/02/20 04/02/20 04/02/20 Range/Units 04:50 04:50 05:25 WBC 18.1 H (3.8-10.6) k/uL RBC 3.47 L (4.30-5.90) m/uL Hgb 11.1 L (13.0-17.5) gm/dL Hct 32.3 L (39.0-53.0) % APTT 99.5 H (22.0-30.0) sec ABG pO2 (83-108) mmHg ABG Total CO2 (19-24) mmol/L BUN 93 H (9-20) mg/dL Creatinine 4.61 H (0.66-1.25) mg/dL POC Glucose (mg/dL) (75-99) mg/dL Hemoglobin A1c (4.0-6.0) % Calcium 8.3 L (8.4-10.2) mg/dL AST 103 H (17-59) U/L ALT 81 H (4-49) U/L Alkaline Phosphatase 177 H (38-126) U/L Total Protein 5.7 L (6.3-8.2) g/dL Albumin 2.6 L (3.5-5.0) g/dL 04/02/20 Range/Units 05:30 WBC (3.8-10.6) k/uL RBC (4.30-5.90) m/uL Hgb (13.0-17.5) gm/dL Hct (39.0-53.0) % APTT (22.0-30.0) sec ABG pO2 140 H (83-108) mmHg ABG Total CO2 25 H (19-24) mmol/L BUN (9-20) mg/dL Creatinine (0.66-1.25) mg/dL POC Glucose (mg/dL) (75-99) mg/dL Hemoglobin A1c (4.0-6.0) % Calcium (8.4-10.2) mg/dL AST (17-59) U/L ALT (4-49) U/L Alkaline Phosphatase (38-126) U/L Total Protein (6.3-8.2) g/dL Albumin (3.5-5.0) g/dL Assessment and Plan Assessment: #1. 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 Titers for Francisella are negative. Sputum cultures and blood cultures are negative, Legionella urine antigen was negative. Influenza and COVID 19 PCR were negative. #2. Acute septic shock requiring pressors, resolved. #3. Acute ARDS secondary to pneumonia and sepsis #4. Acute kidney injury suspect acute tubular necrosis from hypotension and septic shock, requiring hemodialysis and ultrafiltration #5. Acute diastolic congestive heart failure. Echocardiogram showed no evidence of LV dysfunction and no evidence of pericardial effusion #6. History of underlying coronary artery disease #7. History of hypertension #8. Multiorgan system failure secondary to sepsis and septic shock #9. Ex-smoker #10. New-onset atrial fibrillation, rate is controlled, heparin drip is currently on hold related to episode of coffee-ground emesis, patient is currently back into sinus rhythm with a first-degree AV block #11. Acute ileus, resolved #12. Episode of coffee-ground emesis. Plan: Plan dated 04/02/2020. Today, the patient will have a spontaneous breathing trial, of pressure support of 5 and CPAP of 5. Yesterday, the patient underwent dialysis and 3.5 L was removed. Today, because of an excellent arterial blood gases, the PEEP was dropped from 10 to 5. The patient remains on IV heparin, a small dose of norepinephrine which is 2.2 g minute, and tube feeds. Additional recommendations and suggestions are forthcoming. Prognosis is guarded. The patient remains on Unasyn and doxycycline as antibiotics. Additional recommendations and suggestions are forthcoming. Time with Patient: Greater than 30
--- NOTE | 2020-04-02 11:49 | P.PN ---
Subjective Progress Note Date: 04/02/20 (delayed charting seen at 0930) Principal diagnosis: chest pain Patient is a 70-year-old male with coronary artery disease, hypertension, dyslipidemia and GERD who initially presented to [facility] with complaints of chest pain. He underwent extensive evaluation in the ER and was found to have a fever of 102. Chest x-ray was negative. CT PE negative. Influ piero and COVID antigen testing were negative. Troponin and EKG did not reveal any signs of acute ischemia. He was admitted for further monitoring. His troponins remained negative. There was still a concern possible Covid 19 and PCR was tested which was negative. He developed worsening respiratory distress overnight on 03/22 and was subsequently started on Decadron, albuterol, and had an additional dose of Motrin secondary to his fevers. Cardiology was consulted for his chest pain and his troponins remained negative. They agreed with need for echocardiogram which showed ejection fraction of 55% with mild valvular disease. On the morning of 03/24 he has not had increased work of breathing and hypoxemia. Legionella urine antigen was ordered, 1 L bolus, and DuoNeb every 2 hours. He continued to decline and was subsequently transferred to the stepdown unit and started on BiPAP therapy requiring Ativan. Later that afternoon he again had worsening hypoxemia and hypotensive and he was subsequently transferred to the ICU and intubated and started on vasopressors. Pulmonary was consulted. They were concern about possible zoonotic infection or tularemia secondary to his recent coyote exposure. Infectious disease was subsequently consulted. He was found to have a pro-calcitonin greater than 2. He was continued on Doxy, Levaquin, and was started on Zosyn. Gentamicin was not added secondary to worsening kidney function. He continued to require vasopressors through 03/29 and those were able to be subsequently weaned. He had one episode of paroxysmal A. fib. He developed worsening renal function throughout his hospital stay. He required hemodialysis which was initiated on 03/27. He developed an ileus and surgery was consulted. He had one episode of coffee-ground NG tube output which was likely secondary to irritation from the nasogastric tube. His potassium remained elevated despite bicarb drip and hemodialysis. His tube feeds were adjusted. He again went into A. fib without rapid ventricular response on 04/01 overnight. He also had several episodes of hypoglycemia. Patient seen and examined at bedside. He is off propofol. He is tracking but not following commands. General: ill apperaing, mild distress, appears at stated age Lines: TLC R IJ, R PICC, R groin HD cath, and R radial art Derm: warm, dry Head: atraumatic, normocephalic, symmetric Eyes: no lid lesion, PERRL, anicteric sclera Mouth: no lip lesion, mucus membranes dry Cardiovascular: S1S2 reg, no murmur, positive posterior tibial pulse bilateral, Lungs: Course SS bilateral, no rhonchi, no rales , no accessory muscle use, on vent Abdominal: soft, distended, nontender to palpation, no guarding, no appreciable organomegaly Ext: no gross muscle atrophy, diffuse anasarca, no contractures Neuro: No tremors, no roving eye movements, no fasciulation, breathing over the vent Psych: On vent, opening eyes and tracking but not following commands Acute hypoxic respiratory failure, Pneumonia, ARDS - + procalcitionin - ID and Pulm recs: Doxy, Unasyn - pulm hygeine - SBT per pulmonary - Flu negative, COVID negative, sputum and blood cultures are negative, mind IgG and IgM negative, [place] AB negative will need repeat testing in 2 weeks - Speckled ALEX. C-ANCA and P-ANCA negative, negative anti GBM - Vent Day # 9 - off steroids 2/3 CODY with secondary to ATN requiring hemodialysis, hyperphosphatemia -Dialysis today -Nephrology following -On oral bicarb -Nepro - phoslo New-onset paroxysmal A. fib -Cardiology recommendations -On heparin gtt -Not requiring rate or rhythm controlling medications Steroid induced hyperglycemia, resolved and now with episode of hypoglycemia - levemir stopped -continue with sliding scale - follow BS -A1C 6.1, repeat in 6 months Coffee ground emesis. resolved and due to NGT irritation Sepsis, resolved Transaminitis, improving Hypomagnesemia, resolved ileus, resolved Chest pain due to pleurisy, ACS ruled out hyperkalemia Hyponatremia secondary to fluid overload, resolved Chronic: Coronary artery disease GERD Hyperlipidemia DVT prophylaxis: Heparin gtt Discussed with: nursing, Anticipated discharge: unknown Anticipated discharge place: SNF VS [facility] A total of 35 minutes was spent on the care of this complex patient more than 50% of the time was spent in counseling and care coordination. Objective - Vital Signs Vital signs: Vital Signs Temp 99.1 F 04/02/20 08:00 Pulse 99 04/02/20 11:00 Resp 28 H 04/02/20 11:00 BP 149/87 04/02/20 11:00 Pulse Ox 95 04/02/20 11:00 Intake & Output 04/01/20 04/02/20 04/02/20 18:59 06:59 18:59 Intake Total 874.863 651.466 529.446 Output Total 3505 11 0 Balance -2630.137 640.466 529.446 Weight 115.4 kg 112.2 kg Intake: IV 312 282 180 0.9 NACL 240 110 50 Ampicillin-Sulbactam 3 gm 100 100 In Sodium Chloride 0.9% 100 ml @ 200 mls/hr IVPB Q12HR ADAM Rx#:[id number] Pressure bag 72 72 30 Intake, IV Titration 198.863 27.466 194.446 Amount Clevidipine Butyrate 25 0.9 mg In Empty Bag 1 bag @ 1 MG/HR 2 mls/hr IV .Q24H ADAM Rx#:[id number] Heparin Sod,Pork in 0.45% 0 185.812 NaCl 25,000 unit In 0.45 % NaCl 1 250ml.bag @ 8 UNITS/KG/HR 8.944 mls/hr IV .Q24H ADAM Rx#: [id number] Norepinephrine 8 mg In 6.327 27.466 8.634 Sodium Chloride 0.9% 250 ml @ 0.05 MCG/KG/MIN 11. 165 mls/hr IV .Q23H7M AD[facility] Rx#:[id number] fentaNYL (PF) 1,000 mcg 89.402 In Sodium Chloride 0.9% 80 ml @ Per Protocol IV . Q0M [facility] Rx#:[id number] propofoL 500 mg In Empty 102.234 Bag 1 bag @ Titrate IV . Q0M ADAM Rx#:[id number] Tube Feeding 244 192 80 Other 120 150 75 Output: Urine 5 11 0 Hemodialysis 3500 Other: Voiding Method Indwelling Catheter Indwelling Catheter Indwelling Catheter ABP, PAP, CO, CI - Last Documented Arterial Blood Pressure 145/60 - Labs CBC & Chem 7: 04/02/20 04:50 04/02/20 04:50 Labs: Abnormal Lab Results - Last 24 Hours (Table) 04/01/20 04/01/20 04/01/20 Range/Units 04:00 18:07 21:31 WBC (3.8-10.6) k/uL RBC (4.30-5.90) m/uL Hgb (13.0-17.5) gm/dL Hct (39.0-53.0) % APTT (22.0-30.0) sec ABG pO2 (83-108) mmHg ABG Total CO2 (19-24) mmol/L BUN (9-20) mg/dL Creatinine (0.66-1.25) mg/dL POC Glucose (mg/dL) 64 L 69 L (75-99) mg/dL Hemoglobin A1c 6.1 H (4.0-6.0) % Calcium (8.4-10.2) mg/dL AST (17-59) U/L ALT (4-49) U/L Alkaline Phosphatase (38-126) U/L Total Protein (6.3-8.2) g/dL Albumin (3.5-5.0) g/dL 04/01/20 04/01/20 04/02/20 Range/Units 22:10 23:27 00:03 WBC (3.8-10.6) k/uL RBC (4.30-5.90) m/uL Hgb (13.0-17.5) gm/dL Hct (39.0-53.0) % APTT 64.4 H (22.0-30.0) sec ABG pO2 (83-108) mmHg ABG Total CO2 (19-24) mmol/L BUN (9-20) mg/dL Creatinine (0.66-1.25) mg/dL POC Glucose (mg/dL) 106 H 71 L (75-99) mg/dL Hemoglobin A1c (4.0-6.0) % Calcium (8.4-10.2) mg/dL AST (17-59) U/L ALT (4-49) U/L Alkaline Phosphatase (38-126) U/L Total Protein (6.3-8.2) g/dL Albumin (3.5-5.0) g/dL 04/02/20 04/02/20 04/02/20 Range/Units 04:50 04:50 05:25 WBC 18.1 H (3.8-10.6) k/uL RBC 3.47 L (4.30-5.90) m/uL Hgb 11.1 L (13.0-17.5) gm/dL Hct 32.3 L (39.0-53.0) % APTT 99.5 H (22.0-30.0) sec ABG pO2 (83-108) mmHg ABG Total CO2 (19-24) mmol/L BUN 93 H (9-20) mg/dL Creatinine 4.61 H (0.66-1.25) mg/dL POC Glucose (mg/dL) (75-99) mg/dL Hemoglobin A1c (4.0-6.0) % Calcium 8.3 L (8.4-10.2) mg/dL AST 103 H (17-59) U/L ALT 81 H (4-49) U/L Alkaline Phosphatase 177 H (38-126) U/L Total Protein 5.7 L (6.3-8.2) g/dL Albumin 2.6 L (3.5-5.0) g/dL 04/02/20 Range/Units 05:30 WBC (3.8-10.6) k/uL RBC (4.30-5.90) m/uL Hgb (13.0-17.5) gm/dL Hct (39.0-53.0) % APTT (22.0-30.0) sec ABG pO2 140 H (83-108) mmHg ABG Total CO2 25 H (19-24) mmol/L BUN (9-20) mg/dL Creatinine (0.66-1.25) mg/dL POC Glucose (mg/dL) (75-99) mg/dL Hemoglobin A1c (4.0-6.0) % Calcium (8.4-10.2) mg/dL AST (17-59) U/L ALT (4-49) U/L Alkaline Phosphatase (38-126) U/L Total Protein (6.3-8.2) g/dL Albumin (3.5-5.0) g/dL
[2020-04-02 11:55] LABS: Glucose,Whole Blood 84 mg/dL (75-99)
--- NOTE | 2020-04-02 13:07 | P.PN ---
Subjective Progress Note Date: 04/02/20 CHIEF COMPLAINT: Ileus HISTORY OF PRESENT ILLNESS: Patient is being followed for an abdominal ileus. He has fecal management system in place. He is in the hospital for pneumonia. He has been getting daily hemodialysis. Patient is off of sedation. Patient is undergoing weaning trials. Patient is back on his IV heparin for the A. fib. Afebrile WBC 18.1 PHYSICAL EXAM: VITAL SIGNS: Reviewed. GENERAL: Well-developed in no acute distress. HEENT: No sclera icterus. Extraocular movements grossly intact. Moist buccal mucosa. Head is atraumatic, normocephalic. ABDOMEN: Soft. Nondistended. Nontender. NEUROLOGIC: Patient is intubated. His eyes are open ASSESSMENT: 1. Ileus resolved 2. Episode of coffee ground emesis likely due to NG tube irritation, no further episodes PLAN: -Continue ICU management -Continue supportive care Physician [employer] Operator note has been reviewed by physician. Signing provider agrees with the documented findings, assessment, and plan of care. Objective - Vital Signs Vital signs: Vital Signs Temp 99.1 F 04/02/20 08:00 Pulse 99 04/02/20 11:00 Resp 28 H 04/02/20 11:00 BP 149/87 04/02/20 11:00 Pulse Ox 95 04/02/20 11:00 Intake & Output 04/01/20 04/02/20 04/02/20 18:59 06:59 18:59 Intake Total 874.863 651.466 529.446 Output Total 3505 11 0 Balance -2630.137 640.466 529.446 Weight 115.4 kg 112.2 kg 112.2 kg Intake: IV 312 282 180 0.9 NACL 240 110 50 Ampicillin-Sulbactam 3 gm 100 100 In Sodium Chloride 0.9% 100 ml @ 200 mls/hr IVPB Q12HR ADAM Rx#:[id number] Pressure bag 72 72 30 Intake, IV Titration 198.863 27.466 194.446 Amount Clevidipine Butyrate 25 0.9 mg In Empty Bag 1 bag @ 1 MG/HR 2 mls/hr IV .Q24H ADAM Rx#:[id number] Heparin Sod,Pork in 0.45% 0 185.812 NaCl 25,000 unit In 0.45 % NaCl 1 250ml.bag @ 8 UNITS/KG/HR 8.944 mls/hr IV .Q24H ADAM Rx#: [id number] Norepinephrine 8 mg In 6.327 27.466 8.634 Sodium Chloride 0.9% 250 ml @ 0.05 MCG/KG/MIN 11. 165 mls/hr IV .Q23H7M ADAM Rx#:[id number] fentaNYL (PF) 1,000 mcg 89.402 In Sodium Chloride 0.9% 80 ml @ Per Protocol IV . Q0M ADAM Rx#:[id number] propofoL 500 mg In Empty 102.234 Bag 1 bag @ Titrate IV . Q0M ADAM Rx#:[id number] Tube Feeding 244 192 80 Other 120 150 75 Output: Urine 5 11 0 Hemodialysis 3500 Other: Voiding Method Indwelling Catheter Indwelling Catheter Indwelling Catheter ABP, PAP, CO, CI - Last Documented Arterial Blood Pressure 145/60 - Labs CBC & Chem 7: 04/02/20 04:50 04/02/20 04:50 Labs: Abnormal Lab Results - Last 24 Hours (Table) 04/01/20 04/01/20 04/01/20 Range/Units 04:00 18:07 21:31 WBC (3.8-10.6) k/uL RBC (4.30-5.90) m/uL Hgb (13.0-17.5) gm/dL Hct (39.0-53.0) % APTT (22.0-30.0) sec ABG pO2 (83-108) mmHg ABG Total CO2 (19-24) mmol/L BUN (9-20) mg/dL Creatinine (0.66-1.25) mg/dL POC Glucose (mg/dL) 64 L 69 L (75-99) mg/dL Hemoglobin A1c 6.1 H (4.0-6.0) % Calcium (8.4-10.2) mg/dL AST (17-59) U/L ALT (4-49) U/L Alkaline Phosphatase (38-126) U/L Total Protein (6.3-8.2) g/dL Albumin (3.5-5.0) g/dL 04/01/20 04/01/20 04/02/20 Range/Units 22:10 23:27 00:03 WBC (3.8-10.6) k/uL RBC (4.30-5.90) m/uL Hgb (13.0-17.5) gm/dL Hct (39.0-53.0) % APTT 64.4 H (22.0-30.0) sec ABG pO2 (83-108) mmHg ABG Total CO2 (19-24) mmol/L BUN (9-20) mg/dL Creatinine (0.66-1.25) mg/dL POC Glucose (mg/dL) 106 H 71 L (75-99) mg/dL Hemoglobin A1c (4.0-6.0) % Calcium (8.4-10.2) mg/dL AST (17-59) U/L ALT (4-49) U/L Alkaline Phosphatase (38-126) U/L Total Protein (6.3-8.2) g/dL Albumin (3.5-5.0) g/dL 04/02/20 04/02/20 04/02/20 Range/Units 04:50 04:50 05:25 WBC 18.1 H (3.8-10.6) k/uL RBC 3.47 L (4.30-5.90) m/uL Hgb 11.1 L (13.0-17.5) gm/dL Hct 32.3 L (39.0-53.0) % APTT 99.5 H (22.0-30.0) sec ABG pO2 (83-108) mmHg ABG Total CO2 (19-24) mmol/L BUN 93 H (9-20) mg/dL Creatinine 4.61 H (0.66-1.25) mg/dL POC Glucose (mg/dL) (75-99) mg/dL Hemoglobin A1c (4.0-6.0) % Calcium 8.3 L (8.4-10.2) mg/dL AST 103 H (17-59) U/L ALT 81 H (4-49) U/L Alkaline Phosphatase 177 H (38-126) U/L Total Protein 5.7 L (6.3-8.2) g/dL Albumin 2.6 L (3.5-5.0) g/dL 04/02/20 Range/Units 05:30 WBC (3.8-10.6) k/uL RBC (4.30-5.90) m/uL Hgb (13.0-17.5) gm/dL Hct (39.0-53.0) % APTT (22.0-30.0) sec ABG pO2 140 H (83-108) mmHg ABG Total CO2 25 H (19-24) mmol/L BUN (9-20) mg/dL Creatinine (0.66-1.25) mg/dL POC Glucose (mg/dL) (75-99) mg/dL Hemoglobin A1c (4.0-6.0) % Calcium (8.4-10.2) mg/dL AST (17-59) U/L ALT (4-49) U/L Alkaline Phosphatase (38-126) U/L Total Protein (6.3-8.2) g/dL Albumin (3.5-5.0) g/dL
[2020-04-02 14:39] LABS: ABG HCO3 24 mmol/L (21-25); ABG Oxygen Saturation 96.9 % (94-97); ABG PCO2 33 mmHg (35-45); ABG PH 7.46 (7.35-7.45); ABG PO2 123 mmHg (83-108); ABG TCO2 25 mmol/L (19-24); Allen Test Performed? Yes
[2020-04-02] MEDS ORDERED: ANIDULAFUNGIN 200 MG in SODIUM CHLORIDE 0.9% 200 ML IVPB ONE (15:00)
--- NOTE | 2020-04-02 15:42 | PN ---
PROGRESS NOTE DATE OF SERVICE: 04/02/2020 REASON FOR FOLLOWUP: Pneumonia. INTERVAL HISTORY: The patient is currently afebrile. The patient is hemodynamically stable. The patient is currently undergoing hemodialysis. Has been tolerating his tube feeds. Present diarrhea but no worsening has been reported. PHYSICAL EXAMINATION: Blood pressure 148/72 with a pulse of 84, temperature 99. He is 96% on 45% FiO2. General description is an elderly male intubated on the vent. RESPIRATORY SYSTEM: Unlabored breathing, decreased breath sounds at the bases. No wheeze. HEART: S1, S2. Regular rate and rhythm. ABDOMEN: Soft, no tenderness. LABS: Hemoglobin 11.1, white count of 18.1. BUN of 93, creatinine 4.61. DIAGNOSTIC IMPRESSION AND PLAN: 1. Patient with acute respiratory failure, multifactorial, in this patient who did have a component of pneumonia, possible aspiration. Currently on Unasyn to continue as sputum has been negative for resistant pathogen. 2. Patient now with worsening of his white count, possible . We are unable to use the Diflucan because of other medications. The patient is add Eraxis and see if responds to it and monitor his clinical course closely. MMODL / IJN: [id number] /
[2020-04-02] MEDS: NOREPINEPHRINE 8 MG in SODIUM CHLORIDE 0.9% 250 ML IV SCH (17:31)
[2020-04-02 17:58] LABS: Glucose,Whole Blood 126 mg/dL (75-99)
[2020-04-02 19:49] LABS: ABG Base Excess -0.5 mmol/L; ABG HCO3 23 mmol/L (21-25); ABG Oxygen Saturation 92.1 % (94-97); ABG PCO2 33 mmHg (35-45); ABG PH 7.46 (7.35-7.45); ABG PO2 70 mmHg (83-108); ABG TCO2 24 mmol/L (19-24); Allen Test Performed? Yes
[2020-04-02] MEDS: DOXYCYCLINE 100 MG in SODIUM CHLORIDE 0.9% 100 ML IVPB SCH (21:31)
[2020-04-03] MEDS: INSULIN ASPART (NovoLOG) 100 UNIT/ML VIAL SQ SCH ×5 (00:04→17:51)
[2020-04-03 00:05] LABS: Glucose,Whole Blood 139 mg/dL (75-99)
[2020-04-03] MEDS: CLEVIDIPINE BUTYRATE 25 MG in EMPTY BAG 1 BAG IV SCH ×11 (00:25→22:54)
--- NOTE | 2020-04-03 04:10 | CT ---
EXAM: CT Head Without Intravenous Contrast CLINICAL HISTORY: ITS.REASON CT Reason: altered mentation TECHNIQUE: Axial computed tomography images of the head/brain without intravenous contrast. CTDI is 49.27 mGy and DLP is 1196.4 mGy-cm. This CT exam was performed using one or more of the following dose reduction techniques: automated exposure control, adjustment of the mA and/or kV according to patient size, and/or use of iterative reconstruction technique. COMPARISON: No relevant prior studies available. FINDINGS: Brain: No acute infarct, hemorrhage, mass or edema. Ventricles: Unremarkable. No ventriculomegaly. Bones/joints: Unremarkable. No acute calvarial fracture. Soft tissues: Unremarkable. Sinuses: Mild mucosal thickening of the paranasal sinuses. Mastoid air cells: Complete opacification of the mastoid air cells. IMPRESSION: No acute infarct, hemorrhage, mass or edema.
[2020-04-03 04:35] LABS: Basophils % (A) 0 %; Eosinophils % (A) 0 %; HCT 31.7 % (39.0-53.0); HGB 10.6 gm/dL (13.0-17.5); Lymphocytes # (A) 0.4 k/uL (1.0-4.8); Lymphocytes % (A) 3 %; MCH 31.8 pg (25.0-35.0); MCHC 33.4 g/dL (31.0-37.0); MCV 95.4 fL (80.0-100.0); Mean Platelet Volume 9.4; Monocytes # (A) 0.4 k/uL (0-1.0); Monocytes % (A) 3 %; Neutrophils # (A) 12.1 k/uL (1.3-7.7); Neutrophils % (A) 93 %; Platelet Count 207 k/uL (150-450); RBC 3.32 m/uL (4.30-5.90); RDW 14.6 % (11.5-15.5); WBC 13.1 k/uL (3.8-10.6)
[2020-04-03] MEDS: CALCIUM ACETATE 667 MG TAB PO SCH ×3 (05:42→17:32)
[2020-04-03 05:48] LABS: Glucose,Whole Blood 141 mg/dL (75-99)
[2020-04-03 06:18] LABS: Albumin 2.3 g/dL (3.5-5.0); Calcium 8.4 mg/dL (8.4-10.2); Potassium 4.7 mmol/L (3.5-5.1); Total Protein 4.7 g/dL (6.3-8.2)
--- NOTE | 2020-04-03 07:24 | XR ---
EXAMINATION TYPE: XR chest 1V portable DATE OF EXAM: 04/03/2020 HISTORY: Shortness of breath. COMPARISON: April 02, 2020 TECHNIQUE: Single view of the chest is submitted. FINDINGS: Demonstrated are scattered senescent parenchymal change. Right IJ central venous line is unchanged i n position. Endotracheal tube and NG tube have been removed. There is no evidence for focal infiltrate. Improved aeration at the lung bases with mild atelectasis persisting. The heart is stable. Hilar and mediastinal structures are within normal limits. Degenerative changes are seen of the dorsal spine. IMPRESSION: 1. Improved aeration at the lung bases with mild atelectasis persisting.
[2020-04-03] MEDS: IPRATROPIUM-ALBUTEROL 3 ML NEB INHALATION SCH ×4 (08:07→19:29)
[2020-04-03] MEDS: ANIDULAFUNGIN 100 MG in SODIUM CHLORIDE 0.9% 100 ML IVPB SCH (09:31)
[2020-04-03] MEDS: AMPICILLIN-SULBACTAM 3 GM in SODIUM CHLORIDE 0.9% 100 ML IVPB SCH ×2 (09:31→19:26)
[2020-04-03] MEDS: DOXYCYCLINE 100 MG in SODIUM CHLORIDE 0.9% 100 ML IVPB SCH ×2 (09:32→20:42)
[2020-04-03] MEDS: SODIUM BICARBONATE TAB 650 MG TAB PO SCH ×2 (09:32→19:26)
[2020-04-03] MEDS: PANTOPRAZOLE 40 MG/10 ML VIAL IVP SCH ×2 (09:32→19:26)
[2020-04-03] MEDS: ASPIRIN 81 MG PO SCH (09:32)
[2020-04-03] MEDS: ATORVASTATIN 40 MG TAB PO SCH (09:32)
--- NOTE | 2020-04-03 10:04 | P.CNNES ---
History of Present Illness Consult date: 04/03/20 Requesting physician: Maggie Jarquin Reason for Consult: altered mental status History of Present Illness: This is a 70-year-old gentleman with medical history of hypertension, dyslipidemia, coronary artery disease presented to [facility] emergency department on 03/22/2020 for chest pain. History was obtained from medical record since patient is unable to provide that history. Neurology is consulted for altered mental status. In the ER and had a fever of 102. Patient influenza and COVID antigen testing were negative. Covid [address] PE negative. T He developed worsening respiratory distress overnight on 03/22 and as a result was started on Decadron and Motrin for fever. he troponin EKG did not reveal any signs of acute ischemia. Cardiology was consulted and echocardiogram gram showed an ejection fraction of 55% with mild valvular disease. Patient's troponin remained negative. On 03/24 patient was was hypoxemic and the had increased work of breathing. The patient was onDuoNeb every 2 hours. He continued to worsen as a result BiPAP was started and the patient required Ativan. Eventually patient became the worsening of the hypoxemia and hypotensive and was transferred to ICU as well as as a result was intubated and was started on vasopressin. Pulmonology team were concerned about possible zoonotic infection or tularemia secondary due to recent coyote exposure. Infection disease was consulted and patient was on doxycycline, Levaquin and was started on Zosyn. Gentamicin was not started because of worsening of the kidney function. During the hospital stay at the patient had an episode of proximal atrial fibrillation. Patient the required vasopressor through 03/29 and then was subsequently weaned. He developed worsening of his renal function during the stay. He required hemodialysis which was patient on 03/27. He developed ileus and surgery consulted. His potassium remained elevated despite bicarbonates and hemodialysis. Again the patient went into A. fib with RVR on 0204 overnights and he had episodes of hypoglycemia. CT of the head was done on 04/03/2020 which was reported as no acute infarct, hemorrhage or mass or edema. Upon checking the patient's vitals he has been afebrile and I can only see up to from 03/29/2020 03/30/2005 and during that time he's been afebrile and he's been ranging between the 97.9-99.4 F. His blood pressure systolic has been in the range 100s to 150s predominantly he did have an episode where the systolic was and 98 on 0204 and diastolic was 45 within the diastolic has been in the range of the predominantly between 50s to 60s. He continues to be the at the Neck with respiratory rates the last one is 28. Last one blood cell is 13.1 which is trending down. AST of 128 and the ALT of 87 and that was done last today (trending up). His creatinine last is 4.16 on presentation was 1.04 To the hospital stay patient had the 2 episodes of POC glucose in the 60s on 04/01/2020 and 71 on 04/02/2020. Liver A1c was 6.1. Past Medical History Past Medical History: GERD/Reflux, Hyperlipidemia, Hypertension, Myocardial Infarction (VT), Renal Disease Additional Past Medical History / Comment(s): Mild VT per EKG, lower back pain/2 herniated discs and vertebrae cracked, cervical pain since diving injury, pt has passed renal stones. Last Myocardial Infarction Date:: unkn History of Any Multi-Drug Resistant Organisms: None Reported Past Surgical History: Orthopedic Surgery Additional Past Surgical History / Comment(s): L knee arthroscopy, colonoscopy Past Anesthesia/Blood Transfusion Reactions: No Reported Reaction Smoking Status: Former smoker - Past Family History Father Family Medical History: Liver Disease Additional Family Medical History / Comment(s): Father of liver cirrhosis. Mother Family Medical History: Cancer Additional Family Medical History / Comment(s): Mother of lung cancer. She was a smoker. Brother(s) Family Medical History: Coronary Artery Disease (CAD) Additional Family Medical History / Comment(s): Brother had a VT at the age of 46 yrs. Medications and Allergies Home Medications Medication Instructions Recorded Confirmed Type Acetaminophen/Diphenhydramine 1 tab PO HS 03/22/20 03/22/20 History [Tylenol PM 500-25mg] Aspirin EC [Ecotrin Low Dose] 81 mg PO DAILY 03/22/20 03/22/20 History Atorvastatin Calcium [Lipitor] 40 mg PO DAILY 03/22/20 03/22/20 History Losartan Potassium [Cozaar] 100 mg PO DAILY 03/22/20 03/22/20 History Omeprazole 40 mg PO DAILY 03/22/20 03/22/20 History amLODIPine [Norvasc] 10 mg PO DAILY 03/22/20 03/22/20 History Allergies Allergy/AdvReac Type Severity Reaction Status Date / Time No Known Allergies Allergy Verified 03/22/20 07:57 Physical Examination - Vital Signs Vital Signs: Vital Signs Temp Pulse Pulse Resp BP BP Pulse Ox 04/03/20 08:19 94 04/03/20 08:08 86 04/03/20 08:00 99.4 F 90 28 H 138/68 93 L 04/03/20 07:00 83 21 135/65 93 L 04/03/20 06:00 87 29 H 132/70 92 L 04/03/20 05:00 86 23 130/67 92 L 04/03/20 04:00 98.4 F 84 20 135/68 91 L 04/03/20 03:00 90 26 H 133/70 90 L 04/03/20 02:00 88 21 136/63 90 L 04/03/20 01:00 89 29 H 136/75 91 L 04/03/20 00:00 98.4 F 90 32 H 134/66 90 L 04/02/20 23:00 98 30 H 136/72 91 L 04/02/20 22:22 95 27 H 90 L 04/02/20 22:00 90 24 138/77 91 L 04/02/20 21:10 96 04/02/20 21:00 98 28 H 151/70 90 L 04/02/20 20:00 98.7 F 94 32 H 168/82 91 L 04/02/20 19:51 91 L 04/02/20 19:00 105 H 25 H 124/60 87 L 04/02/20 18:00 94 26 H 136/72 96 04/02/20 17:00 101 H 24 128/64 96 04/02/20 16:00 98.2 F 101 H 20 158/79 93 L 04/02/20 15:44 101 H 04/02/20 15:20 103 H 04/02/20 15:00 107 H 27 H 132/71 97 04/02/20 14:00 84 17 148/72 96 04/02/20 13:52 99 F 105 H 24 140/61 04/02/20 13:00 105 H 26 H 158/84 97 04/02/20 12:00 99 F 88 26 H 140/73 96 04/02/20 11:00 99 28 H 149/87 95 04/02/20 10:58 98 04/02/20 10:48 99 04/02/20 10:00 90 26 H 148/72 96 04/02/20 09:00 85 28 H 128/58 97 Intake and Output 04/02/20 04/03/20 04/03/20 22:59 06:59 14:59 Intake Total 254.467 514.251 59.533 Output Total 15 5 5 Balance 239.467 509.251 54.533 Intake: IV 118 128 32 0.9 NACL 70 80 20 Pressure bag 48 48 12 Intake, IV Titration 136.467 386.251 27.533 Amount Ampicillin-Sulbactam 3 gm 100 In Sodium Chloride 0.9% 100 ml @ 200 mls/hr IVPB Q12HR ADAM Rx#:[id number] Clevidipine Butyrate 25 36.467 191.333 27.533 mg In Empty Bag 1 bag @ 1 MG/HR 2 mls/hr IV .Q24H ADAM Rx#:[id number] Doxycycline 100 mg In 100 Sodium Chloride 0.9% 100 ml @ 100 mls/hr IVPB Q12HR ADAM Rx#:[id number] Heparin Sod,Pork in 0.45% 0 94.918 NaCl 25,000 unit In 0.45 % NaCl 1 250ml.bag @ 8 UNITS/KG/HR 8.944 mls/hr IV .Q24H ADAM Rx#: [id number] Output: Urine 15 5 5 Other: Voiding Method Indwelling Catheter Indwelling Catheter Weight 109.2 kg ABP, PAP, CO, CI - Last 8 Hours Arterial Blood Pressure 151/59 Arterial Blood Pressure 157/63 Arterial Blood Pressure 155/60 Arterial Blood Pressure 152/62 Arterial Blood Pressure 144/59 Arterial Blood Pressure 136/55 Arterial Blood Pressure 144/59 GENERAL: The patient is lying in bed and is not in acute distress. He is on BiPAP machine. CHEST: The heart rate is regular rate rhythm. No murmurs to auscultation. LUNG: Clear to auscultation bilaterally no wheezing noted throughout. Not labored breathing. ABDOMEN/GI: Bowel sounds present in all 4 quadrants. No tenderness to palpation throughout. NEUROLOGICAL: Limited because of patient condition. Higher mental function: The patient is drowsy but awakeable to voice. He is oriented to self. Not responding to time or place. He followe two simple c ommands (sticking tongue out and squeezing over the right hand). Otherwsie language is limited. Cranial nerves: The pupils are round, equal and reactive to light. Visual shen are hard to assess because of his condition. Extraocular movement is tracking throughout the room and no appreciable nystagmus from limited. There is no facial weakness noted bilaterally. Patient was able to stick the tongue out 3[address] did not move it side to side. Has weak cough. Has hypophonia. Otherwise rest of cranial nerves could not be assessed because of patient condition. Motor: Gait could not be assessed because of his condition. The strength had hand corporate job titles of 2/5 otherwise 0/5 throughout. Decrease tone throughout. Normal bulk. Cerebellum: Could not be assessed. Sensation: Could not be assessed. Reflexes (right/left): 0/2 throughout. Plantars are mute bilaterally. Results - Laboratory Findings CBC and BMP: 04/03/20 04:05 04/03/20 04:05 Abnormal Lab Findings: Abnormal Labs 03/22/20 03/22/20 03/22/20 07:29 07:29 07:29 WBC 12.5 H RBC Hgb Hct Neutrophils # 11.1 H Lymphocytes # 0.3 L PT 12.3 H INR 1.2 H APTT D-Dimer 1.43 H ABG pH ABG pCO2 ABG pO2 ABG HCO3 ABG Total CO2 ABG O2 Saturation Sodium 131 L Potassium Chloride Carbon Dioxide 21 L BUN Creatinine Glucose 130 H POC Glucose (mg/dL) Hemoglobin A1c Plasma Lactic Acid Galindo Calcium Magnesium 1.5 L Phosphorus Ferritin Total Bilirubin AST ALT 81 H Alkaline Phosphatase 167 H Creatine Kinase CK-MB (CK-2) Troponin I C-Reactive Protein Total Protein Albumin Procalcitonin Urine Protein Urine Ketones Urine Blood Urine WBC Amorphous Sediment Urine Bacteria Urine Mucus ALEX Screen 03/22/20 03/22/20 03/22/20 07:29 07:29 07:29 WBC RBC Hgb Hct Neutrophils # Lymphocytes # PT INR APTT D-Dimer ABG pH ABG pCO2 ABG pO2 ABG HCO3 ABG Total CO2 ABG O2 Saturation Sodium Potassium Chloride Carbon Dioxide BUN Creatinine Glucose POC Glucose (mg/dL) Hemoglobin A1c Plasma Lactic Acid Galindo Calcium Magnesium Phosphorus Ferritin 1772.6 H Total Bilirubin AST ALT Alkaline Phosphatase Creatine Kinase CK-MB (CK-2) Troponin I C-Reactive Protein 186.2 H Total Protein Albumin Procalcitonin 2.12 H Urine Protein Urine Ketones Urine Blood Urine WBC Amorphous Sediment Urine Bacteria Urine Mucus ALEX Screen POSITIVE A 03/22/20 03/23/20 03/23/20 08:16 06:32 06:32 WBC 20.1 H RBC Hgb Hct Neutrophils # 19.3 H Lymphocytes # 0.3 L PT INR APTT D-Dimer ABG pH ABG pCO2 ABG pO2 ABG HCO3 ABG Total CO2 ABG O2 Saturation Sodium Potassium Chloride Carbon Dioxide BUN Creatinine Glucose 185 H POC Glucose (mg/dL) Hemoglobin A1c Plasma Lactic Acid Galindo Calcium Magnesium 2.6 H Phosphorus Ferritin Total Bilirubin AST ALT Alkaline Phosphatase Creatine Kinase CK-MB (CK-2) Troponin I C-Reactive Protein Total Protein Albumin Procalcitonin Urine Protein 1+ H Urine Ketones 1+ H Urine Blood Small H Urine WBC Amorphous Sediment Urine Bacteria Urine Mucus Rare H ALEX Screen 03/24/20 03/24/20 03/24/20 01:43 04:44 05:44 WBC RBC Hgb Hct Neutrophils # Lymphocytes # PT INR APTT D-Dimer ABG pH 7.32 L ABG pCO2 ABG pO2 ABG HCO3 20 L ABG Total CO2 ABG O2 Saturation 93.8 L Sodium Potassium Chloride Carbon Dioxide BUN Creatinine Glucose POC Glucose (mg/dL) 203 H Hemoglobin A1c Plasma Lactic Acid Galindo Calcium Magnesium Phosphorus Ferritin Total Bilirubin AST ALT Alkaline Phosphatase Creatine Kinase CK-MB (CK-2) Troponin I C-Reactive Protein Total Protein Albumin Procalcitonin 45.07 H Urine Protein Urine Ketones Urine Blood Urine WBC Amorphous Sediment Urine Bacteria Urine Mucus ALEX Screen 03/24/20 03/24/20 03/24/20 05:44 05:44 05:44 WBC 34.0 H RBC 4.23 L Hgb Hct Neutrophils # Lymphocytes # PT INR APTT D-Dimer 4.09 H ABG pH ABG pCO2 ABG pO2 ABG HCO3 ABG Total CO2 ABG O2 Saturation Sodium 128 L Potassium Chloride 96 L Carbon Dioxide 19 L BUN 43 H Creatinine 2.22 H Glucose 179 H POC Glucose (mg/dL) Hemoglobin A1c Plasma Lactic Acid Galindo Calcium 8.1 L Magnesium 2.6 H Phosphorus Ferritin Total Bilirubin AST 64 H ALT 54 H Alkaline Phosphatase 150 H Creatine Kinase CK-MB (CK-2) Troponin I C-Reactive Protein 428.3 H Total Protein 6.0 L Albumin 3.1 L Procalcitonin Urine Protein Urine Ketones Urine Blood Urine WBC Amorphous Sediment Urine Bacteria Urine Mucus ALEX Screen 03/24/20 03/24/20 03/24/20 06:14 08:24 08:39 WBC RBC Hgb Hct Neutrophils # Lymphocytes # PT INR APTT D-Dimer ABG pH ABG pCO2 ABG pO2 ABG HCO3 ABG Total CO2 ABG O2 Saturation Sodium Potassium Chloride Carbon Dioxide BUN Creatinine Glucose POC Glucose (mg/dL) 185 H 179 H 185 H Hemoglobin A1c Plasma Lactic Acid Galindo Calcium Magnesium Phosphorus Ferritin Total Bilirubin AST ALT Alkaline Phosphatase Creatine Kinase CK-MB (CK-2) Troponin I C-Reactive Protein Total Protein Albumin Procalcitonin Urine Protein Urine Ketones Urine Blood Urine WBC Amorphous Sediment Urine Bacteria Urine Mucus ALEX Screen 03/24/20 03/24/20 03/24/20 09:08 09:08 09:08 WBC RBC Hgb Hct Neutrophils # Lymphocytes # PT INR APTT D-Dimer ABG pH ABG pCO2 ABG pO2 ABG HCO3 ABG Total CO2 ABG O2 Saturation Sodium Potassium Chloride Carbon Dioxide BUN Creatinine Glucose POC Glucose (mg/dL) Hemoglobin A1c Plasma Lactic Acid Galindo 2.1 H* Calcium Magnesium Phosphorus Ferritin Total Bilirubin AST ALT Alkaline Phosphatase Creatine Kinase 276 H CK-MB (CK-2) 15.0 H Troponin I 5.320 H* C-Reactive Protein Total Protein Albumin Procalcitonin Urine Protein Urine Ketones Urine Blood Urine WBC Amorphous Sediment Urine Bacteria Urine Mucus ALEX Screen 03/24/20 03/24/20 03/24/20 09:51 11:11 11:30 WBC RBC Hgb Hct Neutrophils # Lymphocytes # PT INR APTT D-Dimer ABG pH 7.23 L 7.27 L ABG pCO2 ABG pO2 57 L* 71 L ABG HCO3 17 L 18 L ABG Total CO2 18 L ABG O2 Saturation 82.5 L 90.4 L Sodium Potassium Chloride Carbon Dioxide BUN Creatinine Glucose POC Glucose (mg/dL) Hemoglobin A1c Plasma Lactic Acid Galindo Calcium Magnesium Phosphorus Ferritin Total Bilirubin AST ALT Alkaline Phosphatase Creatine Kinase CK-MB (CK-2) Troponin I C-Reactive Protein Total Protein Albumin Procalcitonin Urine Protein 2+ H Urine Ketones Urine Blood Moderate H Urine WBC 6 H Amorphous Sediment Rare H Urine Bacteria Rare H Urine Mucus Rare H ALEX Screen 03/24/20 03/24/20 03/24/20 12:02 18:49 19:09 WBC RBC Hgb Hct Neutrophils # Lymphocytes # PT INR APTT D-Dimer ABG pH ABG pCO2 ABG pO2 ABG HCO3 ABG Total CO2 ABG O2 Saturation Sodium Potassium Chloride Carbon Dioxide BUN Creatinine Glucose POC Glucose (mg/dL) 181 H 255 H Hemoglobin A1c Plasma Lactic Acid Galindo Calcium Magnesium Phosphorus Ferritin Total Bilirubin AST ALT Alkaline Phosphatase Creatine Kinase CK-MB (CK-2) Troponin I 3.710 H* C-Reactive Protein Total Protein Albumin Procalcitonin Urine Protein Urine Ketones Urine Blood Urine WBC Amorphous Sediment Urine Bacteria Urine Mucus ALEX Screen 03/24/20 03/25/20 03/25/20 23:53 03:55 03:55 WBC RBC Hgb Hct Neutrophils # Lymphocytes # PT INR APTT D-Dimer ABG pH ABG pCO2 ABG pO2 ABG HCO3 ABG Total CO2 ABG O2 Saturation Sodium Potassium Chloride Carbon Dioxide BUN Creatinine Glucose POC Glucose (mg/dL) 236 H Hemoglobin A1c Plasma Lactic Acid Galindo Calcium Magnesium Phosphorus Ferritin Total Bilirubin AST ALT Alkaline Phosphatase Creatine Kinase CK-MB (CK-2) Troponin I C-Reactive Protein 545.8 H Total Protein Albumin Procalcitonin 73.94 H Urine Protein Urine Ketones Urine Blood Urine WBC Amorphous Sediment Urine Bacteria Urine Mucus ALEX Screen 03/25/20 03/25/20 03/25/20 03:55 03:55 05:00 WBC 43.6 H RBC 3.75 L Hgb 12.3 L Hct 36.0 L Neutrophils # 42.0 H Lymphocytes # 0.4 L PT INR APTT D-Dimer ABG pH 7.25 L ABG pCO2 ABG pO2 ABG HCO3 18 L ABG Total CO2 ABG O2 Saturation Sodium 133 L Potassium Chloride Carbon Dioxide 16 L BUN 55 H Creatinine 3.40 H Glucose 212 H POC Glucose (mg/dL) Hemoglobin A1c Plasma Lactic Acid Galindo Calcium 7.2 L Magnesium Phosphorus Ferritin Total Bilirubin 1.7 H AST ALT Alkaline Phosphatase 157 H Creatine Kinase CK-MB (CK-2) Troponin I C-Reactive Protein Total Protein 5.1 L Albumin 2.5 L Procalcitonin Urine Protein Urine Ketones Urine Blood Urine WBC Amorphous Sediment Urine Bacteria Urine Mucus ALEX Screen 03/25/20 03/25/20 03/25/20 06:25 10:23 12:07 WBC RBC Hgb Hct Neutrophils # Lymphocytes # PT INR APTT D-Dimer ABG pH 7.24 L ABG pCO2 ABG pO2 ABG HCO3 18 L ABG Total CO2 ABG O2 Saturation Sodium Potassium Chloride Carbon Dioxide BUN Creatinine Glucose POC Glucose (mg/dL) 188 H 196 H Hemoglobin A1c Plasma Lactic Acid Galindo Calcium Magnesium Phosphorus Ferritin Total Bilirubin AST ALT Alkaline Phosphatase Creatine Kinase CK-MB (CK-2) Troponin I C-Reactive Protein Total Protein Albumin Procalcitonin Urine Protein Urine Ketones Urine Blood Urine WBC Amorphous Sediment Urine Bacteria Urine Mucus ALEX Screen 03/25/20 03/25/20 03/26/20 18:01 23:33 04:23 WBC 16.8 H RBC 4.03 L Hgb Hct Neutrophils # 15.8 H Lymphocytes # 0.4 L PT INR APTT D-Dimer ABG pH ABG pCO2 ABG pO2 ABG HCO3 ABG Total CO2 ABG O2 Saturation Sodium Potassium Chloride Carbon Dioxide BUN Creatinine Glucose POC Glucose (mg/dL) 243 H 271 H Hemoglobin A1c Plasma Lactic Acid Galindo Calcium Magnesium Phosphorus Ferritin Total Bilirubin AST ALT Alkaline Phosphatase Creatine Kinase CK-MB (CK-2) Troponin I C-Reactive Protein Total Protein Albumin Procalcitonin Urine Protein Urine Ketones Urine Blood Urine WBC Amorphous Sediment Urine Bacteria Urine Mucus ALEX Screen 03/26/20 03/26/20 03/26/20 04:23 05:02 05:33 WBC RBC Hgb Hct Neutrophils # Lymphocytes # PT INR APTT D-Dimer ABG pH 7.26 L ABG pCO2 ABG pO2 ABG HCO3 18 L ABG Total CO2 ABG O2 Saturation Sodium 135 L Potassium Chloride Carbon Dioxide 15 L BUN 71 H Creatinine 5.25 H Glucose 280 H POC Glucose (mg/dL) 278 H Hemoglobin A1c Plasma Lactic Acid Galindo Calcium 7.0 L Magnesium Phosphorus Ferritin Total Bilirubin 2.3 H AST 321 H ALT 199 H Alkaline Phosphatase 191 H Creatine Kinase CK-MB (CK-2) Troponin I C-Reactive Protein Total Protein 5.1 L Albumin 2.3 L Procalcitonin Urine Protein Urine Ketones Urine Blood Urine WBC Amorphous Sediment Urine Bacteria Urine Mucus ALEX Screen 03/26/20 03/26/20 03/26/20 09:28 12:12 16:18 WBC RBC Hgb Hct Neutrophils # Lymphocytes # PT INR APTT D-Dimer ABG pH ABG pCO2 ABG pO2 ABG HCO3 ABG Total CO2 ABG O2 Saturation Sodium Potassium Chloride Carbon Dioxide BUN Creatinine Glucose POC Glucose (mg/dL) 266 H 279 H 296 H Hemoglobin A1c Plasma Lactic Acid Galindo Calcium Magnesium Phosphorus Ferritin Total Bilirubin AST ALT Alkaline Phosphatase Creatine Kinase CK-MB (CK-2) Troponin I C-Reactive Protein Total Protein Albumin Procalcitonin Urine Protein Urine Ketones Urine Blood Urine WBC Amorphous Sediment Urine Bacteria Urine Mucus ALEX Screen 03/26/20 03/26/20 03/26/20 18:18 20:53 23:13 WBC RBC Hgb Hct Neutrophils # Lymphocytes # PT INR APTT D-Dimer ABG pH ABG pCO2 ABG pO2 ABG HCO3 ABG Total CO2 ABG O2 Saturation Sodium Potassium Chloride Carbon Dioxide BUN Creatinine Glucose POC Glucose (mg/dL) 337 H 316 H 316 H Hemoglobin A1c Plasma Lactic Acid Gal[place] Calcium Magnesium Phosphorus Ferritin Total Bilirubin AST ALT Alkaline Phosphatase Creatine Kinase CK-MB (CK-2) Troponin I C-Reactive Protein Total Protein Albumin Procalcitonin Urine Protein Urine Ketones Urine Blood Urine WBC Amorphous Sediment Urine Bacteria Urine Mucus ALEX Screen 03/27/20 03/27/20 03/27/20 02:40 03:30 03:30 WBC RBC 3.55 L Hgb 11.3 L Hct 34.5 L Neutrophils # 9.5 H Lymphocytes # 0.3 L PT INR APTT D-Dimer ABG pH ABG pCO2 ABG pO2 ABG HCO3 ABG Total CO2 ABG O2 Saturation Sodium 134 L Potassium Chloride Carbon Dioxide 16 L BUN 93 H Creatinine 7.02 H* Glucose 310 H POC Glucose (mg/dL) 316 H Hemoglobin A1c Plasma Lactic Acid Galindo Calcium 6.7 L Magnesium Phosphorus Ferritin Total Bilirubin AST ALT Alkaline Phosphatase Creatine Kinase CK-MB (CK-2) Troponin I C-Reactive Protein Total Protein Albumin Procalcitonin Urine Protein Urine Ketones Urine Blood Urine WBC Amorphous Sediment Urine Bacteria Urine Mucus ALEX Screen 03/27/20 03/27/20 03/27/20 03:35 05:44 08:26 WBC RBC Hgb Hct Neutrophils # Lymphocytes # PT INR APTT D-Dimer ABG pH 7.26 L ABG pCO2 ABG pO2 74 L ABG HCO3 18 L ABG Total CO2 ABG O2 Saturation 92.0 L Sodium Potassium Chloride Carbon Dioxide BUN Creatinine Glucose POC Glucose (mg/dL) 303 H 300 H Hemoglobin A1c Plasma Lactic Acid Gal[place] Calcium Magnesium Phosphorus Ferritin Total Bilirubin AST ALT Alkaline Phosphatase Creatine Kinase CK-MB (CK-2) Troponin I C-Reactive Protein Total Protein Albumin Procalcitonin Urine Protein Urine Ketones Urine Blood Urine WBC Amorphous Sediment Urine Bacteria Urine Mucus ALEX Screen 03/27/20 03/27/20 03/27/20 10:18 11:10 11:34 WBC RBC Hgb Hct Neutrophils # Lymphocytes # PT INR APTT D-Dimer ABG pH ABG pCO2 ABG pO2 ABG HCO3 ABG Total CO2 ABG O2 Saturation Sodium Potassium Chloride Carbon Dioxide BUN Creatinine Glucose POC Glucose (mg/dL) 245 H 219 H 198 H Hemoglobin A1c Plasma Lactic Acid [place] Calcium Magnesium Phosphorus Ferritin Total Bilirubin AST ALT Alkaline Phosphatase Creatine Kinase CK-MB (CK-2) Troponin I C-Reactive Protein Total Protein Albumin Procalcitonin Urine Protein Urine Ketones Urine Blood Urine WBC Amorphous Sediment Urine Bacteria Urine Mucus ALEX Screen 03/27/20 03/27/20 03/27/20 12:46 13:57 15:01 WBC RBC Hgb Hct Neutrophils # Lymphocytes # PT INR APTT D-Dimer ABG pH ABG pCO2 ABG pO2 ABG HCO3 ABG Total CO2 ABG O2 Saturation Sodium Potassium Chloride Carbon Dioxide BUN Creatinine Glucose POC Glucose (mg/dL) 168 H 151 H 158 H Hemoglobin A1c Plasma Lactic Acid Gal[place] Calcium Magnesium Phosphorus Ferritin Total Bilirubin AST ALT Alkaline Phosphatase Creatine Kinase CK-MB (CK-2) Troponin I C-Reactive Protein Total Protein Albumin Procalcitonin Urine Protein Urine Ketones Urine Blood Urine WBC Amorphous Sediment Urine Bacteria Urine Mucus ALEX Screen 03/27/20 03/27/20 03/27/20 16:27 18:59 19:39 WBC RBC Hgb Hct Neutrophils # Lymphocytes # PT INR APTT D-Dimer ABG pH ABG pCO2 ABG pO2 ABG HCO3 ABG Total CO2 ABG O2 Saturation Sodium Potassium Chloride Carbon Dioxide BUN Creatinine Glucose POC Glucose (mg/dL) 142 H 159 H 145 H Hemoglobin A1c Plasma Lactic Acid [place] Calcium Magnesium Phosphorus Ferritin Total Bilirubin AST ALT Alkaline Phosphatase Creatine Kinase CK-MB (CK-2) Troponin I C-Reactive Protein Total Protein Albumin Procalcitonin Urine Protein Urine Ketones Urine Blood Urine WBC Amorphous Sediment Urine Bacteria Urine Mucus ALEX Screen 03/27/20 03/27/20 03/28/20 21:06 23:06 00:21 WBC RBC Hgb Hct Neutrophils # Lymphocytes # PT INR APTT D-Dimer ABG pH ABG pCO2 ABG pO2 ABG HCO3 ABG Total CO2 ABG O2 Saturation Sodium Potassium Chloride Carbon Dioxide BUN Creatinine Glucose POC Glucose (mg/dL) 151 H 268 H 137 H Hemoglobin A1c Plasma Lactic Acid [place] Calcium Magnesium Phosphorus Ferritin Total Bilirubin AST ALT Alkaline Phosphatase Creatine Kinase CK-MB (CK-2) Troponin I C-Reactive Protein Total Protein Albumin Procalcitonin Urine Protein Urine Ketones Urine Blood Urine WBC Amorphous Sediment Urine Bacteria Urine Mucus ALEX Screen 03/28/20 03/28/20 03/28/20 02:33 03:22 03:25 WBC RBC 3.46 L Hgb 10.8 L Hct 32.4 L Neutrophils # Lymphocytes # 0.2 L PT INR APTT D-Dimer ABG pH ABG pCO2 ABG pO2 ABG HCO3 ABG Total CO2 ABG O2 Saturation Sodium Potassium Chloride Carbon Dioxide BUN Creatinine Glucose POC Glucose (mg/dL) 153 H 156 H Hemoglobin A1c Plasma Lactic Acid [place] Calcium Magnesium Phosphorus Ferritin Total Bilirubin AST ALT Alkaline Phosphatase Creatine Kinase CK-MB (CK-2) Troponin I C-Reactive Protein Total Protein Albumin Procalcitonin Urine Protein Urine Ketones Urine Blood Urine WBC Amorphous Sediment Urine Bacteria Urine Mucus ALEX Screen 03/28/20 03/28/20 03/28/20 03:25 03:25 03:25 WBC RBC Hgb Hct Neutrophils # Lymphocytes # PT INR APTT D-Dimer ABG pH ABG pCO2 ABG pO2 ABG HCO3 ABG Total CO2 ABG O2 Saturation Sodium 136 L Potassium Chloride Carbon Dioxide 18 L BUN 90 H Creatinine 6.27 H Glucose 157 H POC Glucose (mg/dL) Hemoglobin A1c Plasma Lactic Acid Galindo Calcium 7.1 L Magnesium Phosphorus Ferritin Total Bilirubin 1.6 H AST 143 H ALT 133 H Alkaline Phosphatase 200 H Creatine Kinase CK-MB (CK-2) Troponin I C-Reactive Protein 165.5 H Total Protein 4.7 L Albumin 2.3 L Procalcitonin 59.06 H Urine Protein Urine Ketones Urine Blood Urine WBC Amorphous Sediment Urine Bacteria Urine Mucus ALEX Screen 03/28/20 03/28/20 03/28/20 04:34 04:35 05:00 WBC RBC Hgb Hct Neutrophils # Lymphocytes # PT 12.8 H INR 1.2 H APTT D-Dimer ABG pH ABG pCO2 34 L ABG pO2 ABG HCO3 ABG Total CO2 ABG O2 Saturation Sodium Potassium Chloride Carbon Dioxide BUN Creatinine Glucose POC Glucose (mg/dL) 159 H Hemoglobin A1c Plasma Lactic Acid [place] Calcium Magnesium Phosphorus Ferritin Total Bilirubin AST ALT Alkaline Phosphatase Creatine Kinase CK-MB (CK-2) Troponin I C-Reactive Protein Total Protein Albumin Procalcitonin Urine Protein Urine Ketones Urine Blood Urine WBC Amorphous Sediment Urine Bacteria Urine Mucus ALEX Screen 03/28/20 03/28/20 03/28/20 05:44 07:07 08:24 WBC RBC Hgb Hct Neutrophils # Lymphocytes # PT INR APTT D-Dimer ABG pH ABG pCO2 ABG pO2 ABG HCO3 ABG Total CO2 ABG O2 Saturation Sodium Potassium Chloride Carbon Dioxide BUN Creatinine Glucose POC Glucose (mg/dL) 164 H 169 H 199 H Hemoglobin A1c Plasma Lactic Acid [place] Calcium Magnesium Phosphorus Ferritin Total Bilirubin AST ALT Alkaline Phosphatase Creatine Kinase CK-MB (CK-2) Troponin I C-Reactive Protein Total Protein Albumin Procalcitonin Urine Protein Urine Ketones Urine Blood Urine WBC Amorphous Sediment Urine Bacteria Urine Mucus ALEX Screen 03/28/20 03/28/20 03/28/20 09:45 10:22 11:06 WBC RBC Hgb Hct Neutrophils # Lymphocytes # PT INR APTT 53.3 H D-Dimer ABG pH ABG pCO2 ABG pO2 ABG HCO3 ABG Total CO2 ABG O2 Saturation Sodium Potassium Chloride Carbon Dioxide BUN Creatinine Glucose POC Glucose (mg/dL) 174 H 195 H Hemoglobin A1c Plasma Lactic Acid [place] Calcium Magnesium Phosphorus Ferritin Total Bilirubin AST ALT Alkaline Phosphatase Creatine Kinase CK-MB (CK-2) Troponin I C-Reactive Protein Total Protein Albumin Procalcitonin Urine Protein Urine Ketones Urine Blood Urine WBC Amorphous Sediment Urine Bacteria Urine Mucus ALEX Screen 03/28/20 03/28/20 03/28/20 11:56 13:04 14:46 WBC RBC Hgb Hct Neutrophils # Lymphocytes # PT INR APTT D-Dimer ABG pH ABG pCO2 ABG pO2 ABG HCO3 ABG Total CO2 ABG O2 Saturation Sodium Potassium Chloride Carbon Dioxide BUN Creatinine Glucose POC Glucose (mg/dL) 167 H 167 H 138 H Hemoglobin A1c Plasma Lactic Acid [place] Calcium Magnesium Phosphorus Ferritin Total Bilirubin AST ALT Alkaline Phosphatase Creatine Kinase CK-MB (CK-2) Troponin I C-Reactive Protein Total Protein Albumin Procalcitonin Urine Protein Urine Ketones Urine Blood Urine WBC Amorphous Sediment Urine Bacteria Urine Mucus ALEX Screen 03/28/20 03/28/20 03/28/20 15:52 17:12 18:14 WBC RBC Hgb Hct Neutrophils # Lymphocytes # PT INR APTT D-Dimer ABG pH ABG pCO2 ABG pO2 ABG HCO3 ABG Total CO2 ABG O2 Saturation Sodium Potassium Chloride Carbon Dioxide BUN Creatinine Glucose POC Glucose (mg/dL) 166 H 170 H 159 H Hemoglobin A1c Plasma Lactic Acid [place] Calcium Magnesium Phosphorus Ferritin Total Bilirubin AST ALT Alkaline Phosphatase Creatine Kinase CK-MB (CK-2) Troponin I C-Reactive Protein Total Protein Albumin Procalcitonin Urine Protein Urine Ketones Urine Blood Urine WBC Amorphous Sediment Urine Bacteria Urine Mucus ALEX Screen 03/28/20 03/28/20 03/28/20 20:15 21:14 23:03 WBC RBC Hgb Hct Neutrophils # Lymphocytes # PT INR APTT D-Dimer ABG pH ABG pCO2 ABG pO2 ABG HCO3 ABG Total CO2 ABG O2 Saturation Sodium Potassium Chloride Carbon Dioxide BUN Creatinine Glucose POC Glucose (mg/dL) 177 H 185 H 206 H Hemoglobin A1c Plasma Lactic Acid [place] Calcium Magnesium Phosphorus Ferritin Total Bilirubin AST ALT Alkaline Phosphatase Creatine Kinase CK-MB (CK-2) Troponin I C-Reactive Protein Total Protein Albumin Procalcitonin Urine Protein Urine Ketones Urine Blood Urine WBC Amorphous Sediment Urine Bacteria Urine Mucus ALEX Screen 03/28/20 03/29/20 03/29/20 23:52 01:04 01:56 WBC RBC Hgb Hct Neutrophils # Lymphocytes # PT INR APTT D-Dimer ABG pH ABG pCO2 ABG pO2 ABG HCO3 ABG Total CO2 ABG O2 Saturation Sodium Potassium Chloride Carbon Dioxide BUN Creatinine Glucose POC Glucose (mg/dL) 191 H 177 H 174 H Hemoglobin A1c Plasma Lactic Acid [place] Calcium Magnesium Phosphorus Ferritin Total Bilirubin AST ALT Alkaline Phosphatase Creatine Kinase CK-MB (CK-2) Troponin I C-Reactive Protein Total Protein Albumin Procalcitonin Urine Protein Urine Ketones Urine Blood Urine WBC Amorphous Sediment Urine Bacteria Urine Mucus ALEX Screen 03/29/20 03/29/20 03/29/20 04:05 04:05 04:05 WBC RBC 3.34 L Hgb 10.9 L Hct 31.1 L Neutrophils # Lymphocytes # 0.1 L PT INR APTT >200.0 H* D-Dimer ABG pH ABG pCO2 ABG pO2 ABG HCO3 ABG Total CO2 ABG O2 Saturation Sodium 136 L Potassium Chloride 97 L Carbon Dioxide 21 L BUN 92 H Creatinine 6.52 H Glucose 186 H POC Glucose (mg/dL) Hemoglobin A1c Plasma Lactic Acid [place] Calcium 7.5 L Magnesium Phosphorus Ferritin Total Bilirubin AST 99 H ALT 96 H Alkaline Phosphatase 160 H Creatine Kinase CK-MB (CK-2) Troponin I C-Reactive Protein Total Protein 5.3 L Albumin 2.5 L Procalcitonin Urine Protein Urine Ketones Urine Blood Urine WBC Amorphous Sediment Urine Bacteria Urine Mucus ALEX Screen 03/29/20 03/29/20 03/29/20 04:05 04:06 05:04 WBC RBC Hgb Hct Neutrophils # Lymphocytes # PT INR APTT D-Dimer ABG pH ABG pCO2 ABG pO2 112 H ABG HCO3 ABG Total CO2 25 H ABG O2 Saturation Sodium Potassium Chloride Carbon Dioxide BUN Creatinine Glucose POC Glucose (mg/dL) 184 H Hemoglobin A1c Plasma Lactic Acid [place] Calcium Magnesium Phosphorus 11.7 H* Ferritin Total Bilirubin AST ALT Alkaline Phosphatase Creatine Kinase CK-MB (CK-2) Troponin I C-Reactive Protein Total Protein Albumin Procalcitonin Urine Protein Urine Ketones Urine Blood Urine WBC Amorphous Sediment Urine Bacteria Urine Mucus ALEX Screen 03/29/20 03/29/20 03/29/20 05:14 06:04 07:07 WBC RBC Hgb Hct Neutrophils # Lymphocytes # PT INR APTT D-Dimer ABG pH ABG pCO2 ABG pO2 ABG HCO3 ABG Total CO2 ABG O2 Saturation Sodium Potassium Chloride Carbon Dioxide BUN Creatinine Glucose POC Glucose (mg/dL) 172 H 166 H 178 H Hemoglobin A1c Plasma Lactic Acid [place] Calcium Magnesium Phosphorus Ferritin Total Bilirubin AST ALT Alkaline Phosphatase Creatine Kinase CK-MB (CK-2) Troponin I C-Reactive Protein Total Protein Albumin Procalcitonin Urine Protein Urine Ketones Urine Blood Urine WBC Amorphous Sediment Urine Bacteria Urine Mucus ALEX Screen 03/29/20 03/29/20 03/29/20 09:13 09:15 10:44 WBC RBC Hgb Hct Neutrophils # Lymphocytes # PT INR APTT 43.4 H D-Dimer ABG pH ABG pCO2 ABG pO2 ABG HCO3 ABG Total CO2 ABG O2 Saturation Sodium Potassium Chloride Carbon Dioxide BUN Creatinine Glucose POC Glucose (mg/dL) 171 H 152 H Hemoglobin A1c Plasma Lactic Acid [place] Calcium Magnesium Phosphorus Ferritin Total Bilirubin AST ALT Alkaline Phosphatase Creatine Kinase CK-MB (CK-2) Troponin I C-Reactive Protein Total Protein Albumin Procalcitonin Urine Protein Urine Ketones Urine Blood Urine WBC Amorphous Sediment Urine Bacteria Urine Mucus ALEX Screen 03/29/20 03/29/20 03/29/20 11:38 12:57 14:10 WBC RBC Hgb Hct Neutrophils # Lymphocytes # PT INR APTT D-Dimer ABG pH ABG pCO2 ABG pO2 ABG HCO3 ABG Total CO2 ABG O2 Saturation Sodium Potassium Chloride Carbon Dioxide BUN Creatinine Glucose POC Glucose (mg/dL) 131 H 137 H 126 H Hemoglobin A1c Plasma Lactic Acid [place] Calcium Magnesium Phosphorus Ferritin Total Bilirubin AST ALT Alkaline Phosphatase Creatine Kinase CK-MB (CK-2) Troponin I C-Reactive Protein Total Protein Albumin Procalcitonin Urine Protein Urine Ketones Urine Blood Urine WBC Amorphous Sediment Urine Bacteria Urine Mucus ALEX Screen 03/29/20 03/29/20 03/29/20 15:27 16:29 17:24 WBC RBC Hgb Hct Neutrophils # Lymphocytes # PT INR APTT D-Dimer ABG pH ABG pCO2 ABG pO2 ABG HCO3 ABG Total CO2 ABG O2 Saturation Sodium Potassium Chloride Carbon Dioxide BUN Creatinine Glucose POC Glucose (mg/dL) 143 H 148 H 151 H Hemoglobin A1c Plasma Lactic Acid [place] Calcium Magnesium Phosphorus Ferritin Total Bilirubin AST ALT Alkaline Phosphatase Creatine Kinase CK-MB (CK-2) Troponin I C-Reactive Protein Total Protein Albumin Procalcitonin Urine Protein Urine Ketones Urine Blood Urine WBC Amorphous Sediment Urine Bacteria Urine Mucus ALEX Screen 03/29/20 03/29/20 03/29/20 18:54 20:14 22:00 WBC RBC Hgb Hct Neutrophils # Lymphocytes # PT INR APTT D-Dimer ABG pH ABG pCO2 ABG pO2 ABG HCO3 ABG Total CO2 ABG O2 Saturation Sodium Potassium Chloride Carbon Dioxide BUN Creatinine Glucose POC Glucose (mg/dL) 142 H 141 H 140 H Hemoglobin A1c Plasma Lactic Acid [place] Calcium Magnesium Phosphorus Ferritin Total Bilirubin AST ALT Alkaline Phosphatase Creatine Kinase CK-MB (CK-2) Troponin I C-Reactive Protein Total Protein Albumin Procalcitonin Urine Protein Urine Ketones Urine Blood Urine WBC Amorphous Sediment Urine Bacteria Urine Mucus ALEX Screen 03/30/20 03/30/20 03/30/20 00:56 03:12 04:43 WBC RBC Hgb Hct Neutrophils # Lymphocytes # PT INR APTT D-Dimer ABG pH ABG pCO2 ABG pO2 113 H ABG HCO3 ABG Total CO2 ABG O2 Saturation Sodium Potassium Chloride Carbon Dioxide BUN Creatinine Glucose POC Glucose (mg/dL) 139 H 144 H Hemoglobin A1c Plasma Lactic Acid [place] Calcium Magnesium Phosphorus Ferritin Total Bilirubin AST ALT Alkaline Phosphatase Creatine Kinase CK-MB (CK-2) Troponin I C-Reactive Protein Total Protein Albumin Procalcitonin Urine Protein Urine Ketones Urine Blood Urine WBC Amorphous Sediment Urine Bacteria Urine Mucus ALEX Screen 03/30/20 03/30/20 03/30/20 05:00 05:00 05:05 WBC RBC 3.33 L Hgb 10.9 L Hct 31.6 L Neutrophils # Lymphocytes # 0.2 L PT INR APTT D-Dimer ABG pH ABG pCO2 ABG pO2 ABG HCO3 ABG Total CO2 ABG O2 Saturation Sodium 131 L Potassium 5.8 H Chloride 97 L Carbon Dioxide 18 L BUN 100 H Creatinine 5.50 H Glucose 160 H POC Glucose (mg/dL) 164 H Hemoglobin A1c Plasma Lactic Acid [place] Calcium 7.6 L Magnesium Phosphorus Ferritin Total Bilirubin 1.4 H AST 76 H ALT 81 H Alkaline Phosphatase 135 H Creatine Kinase CK-MB (CK-2) Troponin I C-Reactive Protein Total Protein 4.3 L Albumin 2.1 L Procalcitonin Urine Protein Urine Ketones Urine Blood Urine WBC Amorphous Sediment Urine Bacteria Urine Mucus ALEX Screen 03/30/20 03/30/20 03/30/20 05:54 06:52 08:43 WBC RBC Hgb Hct Neutrophils # Lymphocytes # PT INR APTT D-Dimer ABG pH ABG pCO2 ABG pO2 ABG HCO3 ABG Total CO2 ABG O2 Saturation Sodium Potassium Chloride Carbon Dioxide BUN Creatinine Glucose POC Glucose (mg/dL) 155 H 155 H 145 H Hemoglobin A1c Plasma Lactic Acid [place] Calcium Magnesium Phosphorus Ferritin Total Bilirubin AST ALT Alkaline Phosphatase Creatine Kinase CK-MB (CK-2) Troponin I C-Reactive Protein Total Protein Albumin Procalcitonin Urine Protein Urine Ketones Urine Blood Urine WBC Amorphous Sediment Urine Bacteria Urine Mucus ALEX Screen 03/30/20 03/30/20 03/30/20 11:25 16:25 20:12 WBC RBC Hgb Hct Neutrophils # Lymphocytes # PT INR APTT D-Dimer ABG pH ABG pCO2 ABG pO2 ABG HCO3 ABG Total CO2 ABG O2 Saturation Sodium Potassium Chloride Carbon Dioxide BUN Creatinine Glucose POC Glucose (mg/dL) 155 H 152 H 133 H Hemoglobin A1c Plasma Lactic Acid [place] Calcium Magnesium Phosphorus Ferritin Total Bilirubin AST ALT Alkaline Phosphatase Creatine Kinase CK-MB (CK-2) Troponin I C-Reactive Protein Total Protein Albumin Procalcitonin Urine Protein Urine Ketones Urine Blood Urine WBC Amorphous Sediment Urine Bacteria Urine Mucus ALEX Screen 03/31/20 03/31/20 03/31/20 00:16 04:30 04:35 WBC RBC 3.60 L Hgb 11.7 L Hct 34.6 L Neutrophils # 9.7 H Lymphocytes # 0.2 L PT INR APTT D-Dimer ABG pH ABG pCO2 34 L ABG pO2 ABG HCO3 20 L ABG Total CO2 ABG O2 Saturation Sodium Potassium Chloride Carbon Dioxide BUN Creatinine Glucose POC Glucose (mg/dL) 122 H Hemoglobin A1c Plasma Lactic Acid [place] Calcium Magnesium Phosphorus Ferritin Total Bilirubin AST ALT Alkaline Phosphatase Creatine Kinase CK-MB (CK-2) Troponin I C-Reactive Protein Total Protein Albumin Procalcitonin Urine Protein Urine Ketones Urine Blood Urine WBC Amorphous Sediment Urine Bacteria Urine Mucus ALEX Screen 03/31/20 03/31/20 03/31/20 04:35 05:31 11:39 WBC RBC Hgb Hct Neutrophils # Lymphocytes # PT INR APTT D-Dimer ABG pH ABG pCO2 ABG pO2 ABG HCO3 ABG Total CO2 ABG O2 Saturation Sodium 130 L Potassium 6.1 H* Chloride 96 L Carbon Dioxide 17 L BUN 107 H* Creatinine 5.34 H Glucose 128 H POC Glucose (mg/dL) 131 H 116 H Hemoglobin A1c Plasma Lactic Acid [place] Calcium 7.9 L Magnesium Phosphorus Ferritin Total Bilirubin AST 89 H ALT 85 H Alkaline Phosphatase 154 H Creatine Kinase CK-MB (CK-2) Troponin I C-Reactive Protein Total Protein 4.7 L Albumin 2.3 L Procalcitonin Urine Protein Urine Ketones Urine Blood Urine WBC Amorphous Sediment Urine Bacteria Urine Mucus ALEX Screen 03/31/20 03/31/20 04/01/20 17:20 23:57 04:00 WBC RBC Hgb Hct Neutrophils # Lymphocytes # PT INR APTT D-Dimer ABG pH ABG pCO2 ABG pO2 ABG HCO3 ABG Total CO2 ABG O2 Saturation Sodium Potassium 5.3 H 5.2 H Chloride Carbon Dioxide BUN Creatinine Glucose POC Glucose (mg/dL) Hemoglobin A1c 6.1 H Plasma Lactic Acid [place] Calcium Magnesium Phosphorus Ferritin Total Bilirubin AST ALT Alkaline Phosphatase Creatine Kinase CK-MB (CK-2) Troponin I C-Reactive Protein Total Protein Albumin Procalcitonin Urine Protein Urine Ketones Urine Blood Urine WBC Amorphous Sediment Urine Bacteria Urine Mucus ALEX Screen 04/01/20 04/01/20 04/01/20 04:00 04:00 04:50 WBC 16.0 H RBC 3.86 L Hgb 12.4 L Hct 36.4 L Neutrophils # 14.8 H Lymphocytes # 0.5 L PT INR APTT D-Dimer ABG pH ABG pCO2 ABG pO2 110 H ABG HCO3 ABG Total CO2 ABG O2 Saturation Sodium 131 L Potassium 5.3 H Chloride Carbon Dioxide 18 L BUN 108 H* Creatinine 4.96 H Glucose POC Glucose (mg/dL) Hemoglobin A1c Plasma Lactic Acid [place] Calcium 7.9 L Magnesium Phosphorus 12.4 H* Ferritin Total Bilirubin AST 93 H ALT 89 H Alkaline Phosphatase 156 H Creatine Kinase CK-MB (CK-2) Troponin I C-Reactive Protein Total Protein 4.8 L Albumin 2.3 L Procalcitonin Urine Protein Urine Ketones Urine Blood Urine WBC Amorphous Sediment Urine Bacteria Urine Mucus ALEX Screen 04/01/20 04/01/20 04/01/20 18:07 21:31 22:10 WBC RBC Hgb Hct Neutrophils # Lymphocytes # PT INR APTT D-Dimer ABG pH ABG pCO2 ABG pO2 ABG HCO3 ABG Total CO2 ABG O2 Saturation Sodium Potassium Chloride Carbon Dioxide BUN Creatinine Glucose POC Glucose (mg/dL) 64 L 69 L 106 H Hemoglobin A1c Plasma Lactic Acid [place] Calcium Magnesium Phosphorus Ferritin Total Bilirubin AST ALT Alkaline Phosphatase Creatine Kinase CK-MB (CK-2) Troponin I C-Reactive Protein Total Protein Albumin Procalcitonin Urine Protein Urine Ketones Urine Blood Urine WBC Amorphous Sediment Urine Bacteria Urine Mucus ALEX Screen 04/01/20 04/02/20 04/02/20 23:27 00:03 04:50 WBC 18.1 H RBC 3.47 L Hgb 11.1 L Hct 32.3 L Neutrophils # Lymphocytes # PT INR APTT 64.4 H D-Dimer ABG pH ABG pCO2 ABG pO2 ABG HCO3 ABG Total CO2 ABG O2 Saturation Sodium Potassium Chloride Carbon Dioxide BUN Creatinine Glucose POC Glucose (mg/dL) 71 L Hemoglobin A1c Plasma Lactic Acid [place] Calcium Magnesium Phosphorus Ferritin Total Bilirubin AST ALT Alkaline Phosphatase Creatine Kinase CK-MB (CK-2) Troponin I C-Reactive Protein Total Protein Albumin Procalcitonin Urine Protein Urine Ketones Urine Blood Urine WBC Amorphous Sediment Urine Bacteria Urine Mucus ALEX Screen 04/02/20 04/02/20 04/02/20 04:50 05:25 05:30 WBC RBC Hgb Hct Neutrophils # Lymphocytes # PT INR APTT 99.5 H D-Dimer ABG pH ABG pCO2 ABG pO2 140 H ABG HCO3 ABG Total CO2 25 H ABG O2 Saturation Sodium Potassium Chloride Carbon Dioxide BUN 93 H Creatinine 4.61 H Glucose POC Glucose (mg/dL) Hemoglobin A1c Plasma Lactic Acid [place] Calcium 8.3 L Magnesium Phosphorus Ferritin Total Bilirubin AST 103 H ALT 81 H Alkaline Phosphatase 177 H Creatine Kinase CK-MB (CK-2) Troponin I C-Reactive Protein Total Protein 5.7 L Albumin 2.6 L Procalcitonin Urine Protein Urine Ketones Urine Blood Urine WBC Amorphous Sediment Urine Bacteria Urine Mucus ALEX Screen 04/02/20 04/02/20 04/02/20 13:00 14:38 17:54 WBC RBC Hgb Hct Neutrophils # Lymphocytes # PT INR APTT 102.2 H* D-Dimer ABG pH 7.46 H ABG pCO2 33 L ABG pO2 123 H ABG HCO3 ABG Total CO2 25 H ABG O2 Saturation Sodium Potassium Chloride Carbon Dioxide BUN Creatinine Glucose POC Glucose (mg/dL) 126 H Hemoglobin A1c Plasma Lactic Acid [place] Calcium Magnesium Phosphorus Ferritin Total Bilirubin AST ALT Alkaline Phosphatase Creatine Kinase CK-MB (CK-2) Troponin I C-Reactive Protein Total Protein Albumin Procalcitonin Urine Protein Urine Ketones Urine Blood Urine WBC Amorphous Sediment Urine Bacteria Urine Mucus ALEX Screen 04/02/20 04/02/20 04/03/20 19:45 21:00 00:04 WBC RBC Hgb Hct Neutrophils # Lymphocytes # PT INR APTT 44.5 H D-Dimer ABG pH 7.46 H ABG pCO2 33 L ABG pO2 70 L ABG HCO3 ABG Total CO2 ABG O2 Saturation 92.1 L Sodium Potassium Chloride Carbon Dioxide BUN Creatinine Glucose POC Glucose (mg/dL) 139 H Hemoglobin A1c Plasma Lactic Acid [place] Calcium Magnesium Phosphorus Ferritin Total Bilirubin AST ALT Alkaline Phosphatase Creatine Kinase CK-MB (CK-2) Troponin I C-Reactive Protein Total Protein Albumin Procalcitonin Urine Protein Urine Ketones Urine Blood Urine WBC Amorphous Sediment Urine Bacteria Urine Mucus ALEX Screen 04/03/20 04/03/20 04/03/20 04:05 04:05 04:05 WBC 13.1 H RBC 3.32 L Hgb 10.6 L Hct 31.7 L Neutrophils # 12.1 H Lymphocytes # 0.4 L PT INR APTT 36.2 H D-Dimer ABG pH ABG pCO2 ABG pO2 ABG HCO3 ABG Total CO2 ABG O2 Saturation Sodium Potassium Chloride Carbon Dioxide 18 L BUN 89 H Creatinine 4.16 H Glucose 146 H POC Glucose (mg/dL) Hemoglobin A1c Plasma Lactic Acid [place] Calcium Magnesium Phosphorus Ferritin Total Bilirubin AST 128 H ALT 87 H Alkaline Phosphatase 187 H Creatine Kinase CK-MB (CK-2) Troponin I C-Reactive Protein Total Protein 4.7 L Albumin 2.3 L Procalcitonin Urine Protein Urine Ketones Urine Blood Urine WBC Amorphous Sediment Urine Bacteria Urine Mucus ALEX Screen 04/03/20 05:46 WBC RBC Hgb Hct Neutrophils # Lymphocytes # PT INR APTT D-Dimer ABG pH ABG pCO2 ABG pO2 ABG HCO3 ABG Total CO2 ABG O2 Saturation Sodium Potassium Chloride Carbon Dioxide BUN Creatinine Glucose POC Glucose (mg/dL) 141 H Hemoglobin A1c Plasma Lactic Acid [place] Calcium Magnesium Phosphorus Ferritin Total Bilirubin AST ALT Alkaline Phosphatase Creatine Kinase CK-MB (CK-2) Troponin I C-Reactive Protein Total Protein Albumin Procalcitonin Urine Protein Urine Ketones Urine Blood Urine WBC Amorphous Sediment Urine Bacteria Urine Mucus ALEX Screen Assessment and Plan Assessment: * Altered mental status likely due to multifactorial: Toxic-metabolic encephalopathy (elevated LFT's, CODY, hyperphosphatemia, medication induced (Decadron), episodes of hypoglycemia) and acute hypoxic respiratory failure, pneumonia---slight improving in mentation today compared to other days in the hospital * Deconditioning from his hospital stay/ICU, was intubated, hypotensive and requiring vasopressor and steroid use as well underlying infection (pneumonia) * Elevated liver function test * Acute kidney injury requiring hemodialysis * Acute hypoxic respiratory failure * Pneumonia * Steroid-induced hyperglycemia resolved with episodes of hypoglycemia * New onset atrial fibrillation on heparin drip * Coffee-ground emesis resolved Plan: Ordered a routine EEG. I'll not start the patient on any antiepileptic drug unless there is epileptiform discharges or seizure on EEG. I ordered ammonia level, TSH, vitamin B-12 and folate. At this moment I don't think a lumbar puncture is warranted at this time. I feel this is more toxic metabolic encephalopathy, medication use (Decadron) and multiple underlying infection. Section disease is on board and they. If they feel at a lumbar puncture is warranted then we can pursue it but my opinion I don't think is critical at this moment. Physical therapy, occupational therapy and speech therapy are consulted. Regarding electrolyte imbalance will defer the management to the primary team/ICU team. Currently the patient is on [facility]. I.D. team are on board. I'll defer the rest of the medical management to the primary team as well as the ICU team. The plan was discussed with the patient's nurse. Thank you for the consultation. Time with Patient: Greater than 30
[2020-04-03] MEDS ORDERED: HEPARIN SODIUM 1,000 UN/ML (10ML VL) MISCELLANE ONE (10:26)
[2020-04-03] MEDS ORDERED: ACETAMINOPHEN IV (For NPO) 1,000 MG in EMPTY BAG 1 BAG IVPB PRN (10:33)
--- NOTE | 2020-04-03 10:42 | P.PN ---
Subjective Progress Note Date: 04/03/20 Principal diagnosis: Respiratory failure Reevaluated today on 03/28/2020, patient remains in the ICU, intubated and mechanically ventilated. Remains on the same ventilator settings, assist control rate of 26 tidal volume is 450 FiO2 50% PEEP of 14. ABG showed a pO2 of 89 pCO2 of 34 pH of 7.41, hence no change was made in the ventilator settings. However I noticed some leak around the endotracheal tube, and recommended respiratory to have more air in the cough, and adjustment of the endotracheal tube placement. Patient is on multiple drips including fentanyl 0.25 mcg/kg/h, norepinephrine is at 0.05 mcg/kg/m. Propofol at 60 mcg/kg/m. Heparin drip, insulin 5 units per hour drip, and bicarb drip at 75 mL per hour. Patient is back on enteral feeding since he responded well to lactulose, and had multiple bowel movements now he has a fecal management system. In place. Patient went into atrial fibrillation around 4:30 AM, however his rate seems to be fairly well controlled, and basically on heparin only. Underwent SLED yesterday, and was tolerated, 200 mL oFF. Chest x-ray continues to show bilateral interstitial infiltrates, consistent with ARDS. Although the possibility of interstitial edema/fluid overload secondary to renal failure and oliguria. Is not entirely ruled out. Microbiology from sputum and blood remains nondiagnostic. titer for Francisella is pending. CBC is normal WBC count is 7.6 hemoglobin is 10.8. PTT is 53.3. Liver enzymes remain slightly elevated. Repeat pro-calcitonin is pending. Urine Legionella antigen is negative On 03/29/2020 patient seen in follow-up in the intensive care unit, patient remains sedated, and intubated on mechanical ventilator current vent settings are assist control mode of ventilation with a rate of 26, tidal -450, FiO2 of 50% and PEEP of 14 this morning blood gases were reviewed showing pO2 112, pCO2 39 pH of 7.39 and subsequently FiO2 was dropped down to 45%. Is on multiple IV was including 0.9 normal saline at rate of 50 ML per hour, fentanyl at 0.5 mcg/kg/h, insulin at 3 units per hour, Diprivan is at 65 mics per kilogram per minute, levophed is at 4 mics per minute. Patient's tube feedings have been on hold since yesterday related to episode of coffee-ground emesis. Today's hemogl obin is 10.9, white blood cell count of 7.9, significantly improved from a few days ago, PTT is 43.4, sodium is 136, potassium is 5.1, CO2 is 21, chloride is 97, B1 is 92, creatinine is 6.52, patient had hemodialysis treatment yesterday and 1 L of fluid was removed. Nephrology is following, and patient is anticipated to have hemodialysis with ultrafiltration. Today's chest x-ray shows cardiomegaly with bilateral lower lung multifocal acute infiltrates and/or atelectasis and small bilateral pleural effusions and bilateral central vascular congestion. Patient also appears to be generally fluid overloaded. Vasopressor requirements have significantly improved from a few days ago. Blood and sputum cultures have shown no growth thus far. Continue urine antigen was negative, influenza and COVID 19 PCR were negative, awaiting results of the Francisella tularensis antibody test On 03/30/2020 patient seen in follow-up in the intensive care unit, he remains sedated and intubated on mechanical ventilator current vent settings are assist control mode of ventilation with a rate of 26, tidal volumes 450 FiO2 45% and PEEP of 14. This morning his blood gases have been reviewed showing pO2 of 113, pCO2 of 36 and pH of 7.38. PEEP was then dropped to 10. Patient IVs include 0.9 normal saline at a rate of 50 ML per hour, Diprivan is a 65 mics per kilo per minute, fentanyl drip is 0.5 mics per kilo per minute, insulin drip is at 3 units per hour. Tube feedings in the form of vital high-protein at a rate of 12 mL an hour, and the goal is 12. Today's labs have been reviewed, pro-calcitonin has improved although still significantly elevated at 59.06, cultures have been reviewed including blood and sputum cultures, and remain negative thus far, patient remains on doxycycline, Levaquin, and Zosyn, ID service is following. White blood cell count is 6.3, hemoglobin is 10.9, sodium is 131, potassium is 5.8, chloride is 97, CO2 is 18, B1 is 100, and creatinine is 5.5. Remains in anuric, he had hemodialysis yesterday with removal of 1 L of fluid. Today's chest x-ray has been reviewed showing improving right lower lobe infiltrate. No acute events overnight, patient has not had any further bleeding, tolerating tube feedings well. Has been afebrile. Not requiring any vasopressor support. Progress note dated 03/31/2020. 70-year-old male again seen in the intensive care unit. The patient remains intubated and mechanically ventilated. He is on the volume assist control mo dality, rate 26, tidal volume 450, FiO2 45%, but 10. Arterial blood gases show a PaO2 of 100, PaCO2 of 34, pH is 7.38. The patient's currently on saline 10 mL an hour, fentanyl drip at 1 mcg/kg per hour, propofol at 70 mcg/kg/m, and vital high protein at 12 cc per hour, which is goal. His Francisella tularensis antibody test was negative. I believe the patient is a good candidate today for a daily interruption of sedation and a spontaneous trial potentially. We planned to think about doing a bronchoscopy on the patient today for sampling, but it was not done yesterday. The patient is not requiring any blood pressure support. White count is 10.3, hemoglobin 11.7, hematocrit 34.6, and platelet count 217,000. Sodium was 1:30, potassium 6.1, chloride 96, CO2 17, anion gap 17, and BUN of 107 with a creatinine of 5.34. His albumin is 2.3. AST is 89, ALT is 85. Microbiologic studies were negative. Chest x-ray could not be retrieved, and the official report is pending. The patient remains on Levaquin, doxycycline, and Zosyn. Progress note dated 04/01/2020. 70-year-old male, again seen in the intensive care unit today. The patient remained on the ventilator overnight. Yesterday, he apparently attempted a daily eruption of sedation and a spontaneous breathing trial, and the patient apparently became hypertensive and he was recently dated. Nobody told me of this. I did tell them today again to do another daily eruption of sedation and a spontaneous breathing trial. The patient should be on pressure support of 10, CPAP of 5, and if his blood pressure goes up, they should use Cleveprex to control it. He did have hemodialysis yesterday, 4 L was removed. He still has significant scrotal edema. Currently, he is on the volume assist control modality, rate 26, tidal volume 450, FiO2 45%, and a PEEP of 10. Arterial blood gases show a PaO2 of 110, PaCO2 37, and a pH 7.36. The patient remains on propofol at 40 g kilogram per minute, fentanyl at 1 mcg/kg/h, saline at KVO, and vital high protein at goal, which is 44 mL an hour. Progress note dated 04/02/2020. 70-year-old male, seen in the intensive care unit today. He remains on the mechanical ventilator. He is on the volume assist control mode, rate 26, tidal volume 450, FiO2 45%, PEEP of 10. Arterial blood gases show a PaO2 of 140, PaCO2 36, and a pH is 7.43. The PEEP was dropped from 10-5. The patient's on heparin via weightbase protocol, norepinephrine at 2.2 mcg/m, saline at KVO, and tube feeds with Nepro at 16 mL an hour, which is goal. The patient did have hemodialysis yesterday, and 3-1/2 L was removed. Today, the patient will have a spontaneous breathing trial. He'll be placed on pressure support of 5 and CPAP of 5. The patient's mental status is not great. The patient has been off of sedation for more than 24 hours. White count is 18.1, hemoglobin 11.1, hematocrit 32.3, and platelet count 194,000. PTT is 99.5. Sodium potassium chloride CO2 and anion gap are all normal. BUN is 93, and creatinine is 4.61. Microbiologic studies are negative. The patient is seen today 04/03/2020 in follow-up in the intensive care unit. He was successfully extubated yesterday. He remains on BiPAP at 12/5 and 50% FiO2. Blood gases on 6 L nasal cannula revealed a pO2 of 70, pCO2 33, pH 7.45. He is currently on Klonopin at 13 mg per hour. Heparin per weight-based protocol. 0.9 normal saline at 10 minimal per hour. He is being nourished with TPN. Swallow evaluation pending. Computed tomography scan of the brain revealed no acute abnormalities. EEG is pending. He is awake. Alert. Following simple commands. He is extremely weak. Blood and sputum cultures revealed no growth. White count 13.1. Hemoglobin 10.6. Sodium 139. Potassium 4.7. Creatinine 4.16. AST 128. ALT 87. Alk phos 187. Albumin 2.3. He remains on Unasyn, doxycycline, Eraxis. Continued on bronchodilators. Objective - Vital Signs Vital signs: Vital Signs Temp 99.4 F 04/03/20 08:00 Pulse 84 04/03/20 09:00 Resp 24 04/03/20 09:00 BP 137/65 04/03/20 09:00 Pulse Ox 94 L 04/03/20 09:00 Intake & Output 04/02/20 04/03/20 04/03/20 18:59 06:59 18:59 Intake Total 858.673 701.318 425.533 Output Total 4000 20 5 Balance -3141.327 681.318 420.533 Weight 112.2 kg 109.2 kg Intake: IV 292 182 148 0.9 NACL 120 110 30 Ampicillin-Sulbactam 3 gm 100 100 In Sodium Chloride 0.9% 100 ml @ 200 mls/hr IVPB Q12HR AD[facility] Rx#:[id number] Pressure bag 72 72 18 Intake, IV Titration 261.673 519.318 277.533 Amount Ampicillin-Sulbactam 3 gm 100 In Sodium Chloride 0.9% 100 ml @ 200 mls/hr IVPB Q12HR ADAM Rx#:[id number] Anidulafungin 100 mg In 100 Sodium Chloride 0.9% 100 ml @ 84 mls/hr IVPB DAILY ADAM Rx#:[id number] Clevidipine Butyrate 25 3.4 224.400 77.533 mg In Empty Bag 1 bag @ 1 MG/HR 2 mls/hr IV .Q24H ADAM Rx#:[id number] Doxycycline 100 mg In 100 100 Sodium Chloride 0.9% 100 ml @ 100 mls/hr IVPB Q12HR ADAM Rx#:[id number] Heparin Sod,Pork in 0.45% 241.153 94.918 NaCl 25,000 unit In 0.45 % NaCl 1 250ml.bag @ 8 UNITS/KG/HR 8.944 mls/hr IV .Q24H ADAM Rx#: [id number] Norepinephrine 8 mg In 17.120 Sodium Chloride 0.9% 250 ml @ 0.05 MCG/KG/MIN 11. 165 mls/hr IV .Q23H7M ADAM Rx#:[id number] Tube Feeding 200 Other 105 Output: Urine 0 20 5 Hemodialysis 4000 Other: Voiding Method Indwelling Catheter Indwelling Catheter Indwelling Catheter ABP, PAP, CO, CI - Last Documented Arterial Blood Pressure 157/60 - Exam GENERAL EXAM: Alert, extremely weak 70-year-old gentleman, on BiPAP at 50% FiO2, fairly comfortable in no apparent distress. HEAD: Normocephalic. EYES: Normal reaction of pupils, equal size. NOSE: Clear with pink turbinates. THROAT: No erythema or exudates. NECK: No masses, no JVD. CHEST: No chest wall deformity. LUNGS: Equal air entry with scattered rhonchi bilaterally. CVS: S1 and S2 normal with no audible murmur, regular rhythm. ABDOMEN: No hepatosplenomegaly, normal bowel sounds, no guarding or rigidity. SPINE: No scoliosis or deformity SKIN: No rashes CENTRAL NERVOUS SYSTEM: No focal deficits, tone is normal in all 4 extremities. EXTREMITIES: There is no peripheral edema. No clubbing, no cyanosis. Peripheral pulses are intact. - Labs CBC & Chem 7: 04/03/20 04:05 04/03/20 04:05 Labs: Abnormal Lab Results - Last 24 Hours (Table) 04/02/20 04/02/20 04/02/20 Range/Units 13:00 14:38 17:54 WBC (3.8-10.6) k/uL RBC (4.30-5.90) m/uL Hgb (13.0-17.5) gm/dL Hct (39.0-53.0) % Neutrophils # (1.3-7.7) k/uL Lymphocytes # (1.0-4.8) k/uL APTT 102.2 H* (22.0-30.0) sec ABG pH 7.46 H (7.35-7.45) ABG pCO2 33 L (35-45) mmHg ABG pO2 123 H (83-108) mmHg ABG Total CO2 25 H (19-24) mmol/L ABG O2 Saturation (94-97) % Carbon Dioxide (22-30) mmol/L BUN (9-20) mg/dL Creatinine (0.66-1.25) mg/dL Glucose (74-99) mg/dL POC Glucose (mg/dL) 126 H (75-99) mg/dL AST (17-59) U/L ALT (4-49) U/L Alkaline Phosphatase (38-126) U/L Total Protein (6.3-8.2) g/dL Albumin (3.5-5.0) g/dL 04/02/20 04/02/20 04/03/20 Range/Units 19:45 21:00 00:04 WBC (3.8-10.6) k/uL RBC (4.30-5.90) m/uL Hgb (13.0-17.5) gm/dL Hct (39.0-53.0) % Neutrophils # (1.3-7.7) k/uL Lymphocytes # (1.0-4.8) k/uL APTT 44.5 H (22.0-30.0) sec ABG pH 7.46 H (7.35-7.45) ABG pCO2 33 L (35-45) mmHg ABG pO2 70 L (83-108) mmHg ABG Total CO2 (19-24) mmol/L ABG O2 Saturation 92.1 L (94-97) % Carbon Dioxide (22-30) mmol/L BUN (9-20) mg/dL Creatinine (0.66-1.25) mg/dL Glucose (74-99) mg/dL POC Glucose (mg/dL) 139 H (75-99) mg/dL AST (17-59) U/L ALT (4-49) U/L Alkaline Phosphatase (38-126) U/L Total Protein (6.3-8.2) g/dL Albumin (3.5-5.0) g/dL 04/03/20 04/03/20 04/03/20 Range/Units 04:05 04:05 04:05 WBC 13.1 H (3.8-10.6) k/uL RBC 3.32 L (4.30-5.90) m/uL Hgb 10.6 L (13.0-17.5) gm/dL Hct 31.7 L (39.0-53.0) % Neutrophils # 12.1 H (1.3-7.7) k/uL Lymphocytes # 0.4 L (1.0-4.8) k/uL APTT 36.2 H (22.0-30.0) sec ABG pH (7.35-7.45) ABG pCO2 (35-45) mmHg ABG pO2 (83-108) mmHg ABG Total CO2 (19-24) mmol/L ABG O2 Saturation (94-97) % Carbon Dioxide 18 L (22-30) mmol/L BUN 89 H (9-20) mg/dL Creatinine 4.16 H (0.66-1.25) mg/dL Glucose 146 H (74-99) mg/dL POC Glucose (mg/dL) (75-99) mg/dL AST 128 H (17-59) U/L ALT 87 H (4-49) U/L Alkaline Phosphatase 187 H (38-126) U/L Total Protein 4.7 L (6.3-8.2) g/dL Albumin 2.3 L (3.5-5.0) g/dL 04/03/20 Range/Units 05:46 WBC (3.8-10.6) k/uL RBC (4.30-5.90) m/uL Hgb (13.0-17.5) gm/dL Hct (39.0-53.0) % Neutrophils # (1.3-7.7) k/uL Lymphocytes # (1.0-4.8) k/uL APTT (22.0-30.0) sec ABG pH (7.35-7.45) ABG pCO2 (35-45) mmHg ABG pO2 (83-108) mmHg ABG Total CO2 (19-24) mmol/L ABG O2 Saturation (94-97) % Carbon Dioxide (22-30) mmol/L BUN (9-20) mg/dL Creatinine (0.66-1.25) mg/dL Glucose (74-99) mg/dL POC Glucose (mg/dL) 141 H (75-99) mg/dL AST (17-59) U/L ALT (4-49) U/L Alkaline Phosphatase (38-126) U/L Total Protein (6.3-8.2) g/dL Albumin (3.5-5.0) g/dL Assessment and Plan Assessment: 1 Acute hypoxic respiratory failure requiring intubation and mechanical ventilation on 03/24/2020, extubated to BiPAP on 04/02/2020, related to acute pneumonia, 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 Titers for Francisella are negative. Sputum cultures and blood cultures are negative, Legionella urine antigen was negative. Influenza and COVID 19 PCR were negative. 2 Acute septic shock requiring pressors, resolved. 3 Acute ARDS secondary to pneumonia and sepsis 4 Acute kidney injury suspect acute tubular necrosis from hypotension and septic shock, requiring hemodialysis and ultrafiltration 5 Acute diastolic congestive heart failure. Echocardiogram showed no evidence of LV dysfunction and no evidence of pericardial effusion 6 History of underlying coronary artery disease 7 History of hypertension 8 Multiorgan system failure secondary to sepsis and septic shock 9 Ex-smoker 10 New-onset atrial fibrillation, rate is controlled, heparin drip is currently on hold related to episode of coffee-ground emesis, patient is currently back into sinus rhythm with a first-degree AV block 11 Acute ileus, resolved 12 Episode of coffee-ground emesis. Plan: The patient was seen and evaluated by Dr. Ceja Chest x-ray, ABGs and labs reviewed EEG pending Titrate down the FiO2 as tolerated Keep off BiPAP during the day as tolerated Continue to follow here in the intensive care unit Further recommendations based on his clinical status Critical care time 36 minutes I, the cosigning physician, performed a history & physical examination of the patient. Lungs sounds hoarse bilateral scattered rhonchi. Maintaining good O2 saturations in the 90s on 50% FiO2 via the BiPAP. I discussed the assessment and plan of care with my nurse practitioner, Angelique Hair. I attest to the above note as dictated by her.
[2020-04-03 11:34] LABS: Glucose,Whole Blood 121 mg/dL (75-99)
[2020-04-03] MEDS: NOREPINEPHRINE 8 MG in SODIUM CHLORIDE 0.9% 250 ML IV SCH (12:12)
--- NOTE | 2020-04-03 12:25 | P.PN ---
Subjective Progress Note Date: 04/03/20 Principal diagnosis: chest pain Patient is a 70-year-old male with coronary artery disease, hypertension, dyslipidemia and GERD who initially presented to [facility] with complaints of chest pain. He underwent extensive evaluation in the ER and was found to have a fever of 102. Chest x-ray was negative. CT PE negative. Influenza and COVID antigen testing were negative. Troponin and EKG did not reveal any signs of acute ischemia. He was admitted for further monitoring. His troponins remained negative. There was still a concern possible Covid 19 and PCR was tested which was negative. He developed worsening respiratory distress overnight on 03/22 and was subsequently started on Decadron, albuterol, and had an additional dose of Motrin secondary to his fevers. Cardiology was consulted for his chest pain and his troponins remained negative. They agreed with need for echocardiogram which showed ejection fraction of 55% with mild valvular disease. On the morning of 03/24 he has not had increased work of breathing and hypoxemia. Legionella urine antigen was ordered, 1 L bolus, and DuoNeb every 2 hours. He continued to decline and was subsequently transferred to the stepdown unit and started on BiPAP therapy requiring Ativan. Later that afternoon he again had worsening hypoxemia and hypotensive and he was subsequently transferred to the ICU and intubated and started on vasopressors. Pulmonary was consulted. They were concern about possible zoonotic infection or tularemia secondary to his recent coyote exposure. Infectious disease was subsequently consulted. He was found to have a pro-calcitonin greater than 2. He was continued on Doxy, Levaquin, and was started on Zosyn. Gentamicin was not added secondary to worsening kidney function. He continued to require vasopressors through 03/29 and those were able to be subsequently weaned. He had one episode of paroxysmal A. fib. He developed worsening renal function throughout his hospital stay. He required hemodialysis which was initiated on 03/27. He developed an ileus and surgery was consulted. He had one episode of coffee-ground NG tube output which was likely secondary to irritation from the nasogastric tube. His potassium remained elevated despite bicarb drip and hemodialysis. His tube feeds were adjusted. He again went into A. fib without rapid ventricular response on 04/01 overnight. He also had several episodes of hypoglycemia and insulin was stopped. He did well overnight on 04/02 and was subsequently extubated. He required BiPAP on 04/02/20. Patient seen and examined at bedside. He is awake and is following commands regarding his eyes, but is unable to move. He is getting dialysis. General: ill apperaing, no distress, appears at stated age Derm: warm, dry Head: atraumatic, normocephalic, symmetric Eyes: no lid lesion, PERRL, anicteric sclera Mouth: no lip lesion, mucus membranes dry Cardiovascular: S1S2 reg, no murmur, positive posterior tibial pulse bilateral, Lungs: Course SS bilateral, no rhonchi, no rales , no accessory muscle use Abdominal: soft, distended, nontender to palpation, no guarding, no appreciable organomegaly Ext: no gross muscle atrophy, diffuse anasarca, no contractures Neuro: No tremors, no roving eye movements, no fasciulation Psych: Awake, following commands to close eye. Acute hypoxic respiratory failure, Pneumonia, ARDS - + procalcitionin - ID and Pulm recs: Doxy, Unasyn - pulm hygeine - Flu negative, COVID negative, sputum and blood cultures are negative, mind IgG and IgM negative, [place] AB negative will need repeat testing in 2 weeks - Speckled ALEX. C-ANCA and P-ANCA negative, negative anti GBM - off vent / total Vent day 9 - off steroids 2/3 - Plan is for TPN and swallow study 04/05, currently NPO CODY with secondary to ATN requiring hemodialysis, hyperphosphatemia - Dialysis today - Nephrology following - On oral bicarb - Nepro - phoslo New-onset paroxysmal A. fib - Cardiology recommendations - On heparin gtt - Not requiring rate or rhythm controlling medications Steroid induced hyperglycemia, resolved and now with episode of hypoglycemia - levemir stopped - continue with sliding scale - follow BS - A1C 6.1, repeat in 6 months Coffee ground emesis. resolved and due to NGT irritation Sepsis, resolved Transaminitis, improving Hypomagnesemia, resolved ileus, resolved Chest pain due to pleurisy, ACS ruled out hyperkalemia Hyponatremia secondary to fluid overload, resolved Chronic: Coronary artery disease GERD Hyperlipidemia DVT prophylaxis: Heparin gtt Discussed with: nursing, Anticipated discharge: unknown Anticipated discharge place: SNF VS LT[facility] A total of 35 minutes was spent on the care of this complex patient more than 50% of the time was spent in counseling and care coordination. Objective - Vital Signs Vital signs: Vital Signs Temp 99.4 F 04/03/20 08:00 Pulse 87 04/03/20 11:00 Resp 24 04/03/20 11:00 BP 161/75 04/03/20 11:00 Pulse Ox 91 L 04/03/20 11:00 Intake & Output 04/02/20 04/03/20 04/03/20 18:59 06:59 18:59 Intake Total 858.673 701.318 486.566 Output Total 4000 20 5 Balance -3141.327 681.318 481.566 Weight 112.2 kg 109.2 kg Intake: IV 292 182 180 0.9 NACL 120 110 50 Ampicillin-Sulbactam 3 gm 100 100 In Sodium Chloride 0.9% 100 ml @ 200 mls/hr IVPB Q12HR ADAM Rx#:[id number] Pressure bag 72 72 30 Intake, IV Titration 261.673 519.318 306.566 Amount Ampicillin-Sulbactam 3 gm 100 In Sodium Chloride 0.9% 100 ml @ 200 mls/hr IVPB Q12HR ADAM Rx#:[id number] Anidulafungin 100 mg In 100 Sodium Chloride 0.9% 100 ml @ 84 mls/hr IVPB DAILY ADAM Rx#:[id number] Clevidipine Butyrate 25 3.4 224.400 106.566 mg In Empty Bag 1 bag @ 1 MG/HR 2 mls/hr IV .Q24H ADAM Rx#:[id number] Doxycycline 100 mg In 100 100 Sodium Chloride 0.9% 100 ml @ 100 mls/hr IVPB Q12HR ADAM Rx#:[id number] Heparin Sod,Pork in 0.45% 241.153 94.918 NaCl 25,000 unit In 0.45 % NaCl 1 250ml.bag @ 8 UNITS/KG/HR 8.944 mls/hr IV .Q24H ADAM Rx#: [id number] Norepinephrine 8 mg In 17.120 Sodium Chloride 0.9% 250 ml @ 0.05 MCG/KG/MIN 11. 165 mls/hr IV .Q23H7M ADAM Rx#:[id number] Tube Feeding 200 Other 105 Output: Urine 0 20 5 Hemodialysis 4000 Other: Voiding Method Indwelling Catheter Indwelling Catheter Indwelling Catheter ABP, PAP, CO, CI - Last Documented Arterial Blood Pressure 159/62 - Labs CBC & Chem 7: 04/03/20 04:05 04/03/20 04:05 Labs: Abnormal Lab Results - Last 24 Hours (Table) 04/02/20 04/02/20 04/02/20 Range/Units 13:00 14:38 17:54 WBC (3.8-10.6) k/uL RBC (4.30-5.90) m/uL Hgb (13.0-17.5) gm/dL Hct (39.0-53.0) % Neutrophils # (1.3-7.7) k/uL Lymphocytes # (1.0-4.8) k/uL APTT 102.2 H* (22.0-30.0) sec ABG pH 7.46 H (7.35-7.45) ABG pCO2 33 L (35-45) mmHg ABG pO2 123 H (83-108) mmHg ABG Total CO2 25 H (19-24) mmol/L ABG O2 Saturation (94-97) % Carbon Dioxide (22-30) mmol/L BUN (9-20) mg/dL Creatinine (0.66-1.25) mg/dL Glucose (74-99) mg/dL POC Glucose (mg/dL) 126 H (75-99) mg/dL AST (17-59) U/L ALT (4-49) U/L Alkaline Phosphatase (38-126) U/L Total Protein (6.3-8.2) g/dL Albumin (3.5-5.0) g/dL 04/02/20 04/02/20 04/03/20 Range/Units 19:45 21:00 00:04 WBC (3.8-10.6) k/uL RBC (4.30-5.90) m/uL Hgb (13.0-17.5) gm/dL Hct (39.0-53.0) % Neutrophils # (1.3-7.7) k/uL Lymphocytes # (1.0-4.8) k/uL APTT 44.5 H (22.0-30.0) sec ABG pH 7.46 H (7.35-7.45) ABG pCO2 33 L (35-45) mmHg ABG pO2 70 L (83-108) mmHg ABG Total CO2 (19-24) mmol/L ABG O2 Saturation 92.1 L (94-97) % Carbon Dioxide (22-30) mmol/L BUN (9-20) mg/dL Creatinine (0.66-1.25) mg/dL Glucose (74-99) mg/dL POC Glucose (mg/dL) 139 H (75-99) mg/dL AST (17-59) U/L ALT (4-49) U/L Alkaline Phosphatase (38-126) U/L Total Protein (6.3-8.2) g/dL Albumin (3.5-5.0) g/dL 04/03/20 04/03/20 04/03/20 Range/Units 04:05 04:05 04:05 WBC 13.1 H (3.8-10.6) k/uL RBC 3.32 L (4.30-5.90) m/uL Hgb 10.6 L (13.0-17.5) gm/dL Hct 31.7 L (39.0-53.0) % Neutrophils # 12.1 H (1.3-7.7) k/uL Lymphocytes # 0.4 L (1.0-4.8) k/uL APTT 36.2 H (22.0-30.0) sec ABG pH (7.35-7.45) ABG pCO2 (35-45) mmHg ABG pO2 (83-108) mmHg ABG Total CO2 (19-24) mmol/L ABG O2 Saturation (94-97) % Carbon Dioxide 18 L (22-30) mmol/L BUN 89 H (9-20) mg/dL Creatinine 4.16 H (0.66-1.25) mg/dL Glucose 146 H (74-99) mg/dL POC Glucose (mg/dL) (75-99) mg/dL AST 128 H (17-59) U/L ALT 87 H (4-49) U/L Alkaline Phosphatase 187 H (38-126) U/L Total Protein 4.7 L (6.3-8.2) g/dL Albumin 2.3 L (3.5-5.0) g/dL 04/03/20 04/03/20 Range/Units 05:46 11:32 WBC (3.8-10.6) k/uL RBC (4.30-5.90) m/uL Hgb (13.0-17.5) gm/dL Hct (39.0-53.0) % Neutrophils # (1.3-7.7) k/uL Lymphocytes # (1.0-4.8) k/uL APTT (22.0-30.0) sec ABG pH (7.35-7.45) ABG pCO2 (35-45) mmHg ABG pO2 (83-108) mmHg ABG Total CO2 (19-24) mmol/L ABG O2 Saturation (94-97) % Carbon Dioxide (22-30) mmol/L BUN (9-20) mg/dL Creatinine (0.66-1.25) mg/dL Glucose (74-99) mg/dL POC Glucose (mg/dL) 141 H 121 H (75-99) mg/dL AST (17-59) U/L ALT (4-49) U/L Alkaline Phosphatase (38-126) U/L Total Protein (6.3-8.2) g/dL Albumin (3.5-5.0) g/dL
--- NOTE | 2020-04-03 13:09 | P.PN ---
Subjective Progress Note Date: 04/03/20 Follow-up for acute kidney injury currently ongoing dialysis. Blood pressures high, goal UF of 4 L today. Oliguric. Objective - Vital Signs Vital signs: Vital Signs Temp 99 F 04/03/20 12:00 Pulse 90 04/03/20 12:01 Resp 28 H 04/03/20 12:00 BP 149/65 04/03/20 12:00 Pulse Ox 92 L 04/03/20 12:00 Intake & Output 04/02/20 04/03/20 04/03/20 18:59 06:59 18:59 Intake Total 858.673 701.318 523.533 Output Total 4000 20 5 Balance -3141.327 681.318 518.533 Weight 112.2 kg 109.2 kg Intake: IV 292 182 196 0.9 NACL 120 110 60 Ampicillin-Sulbactam 3 gm 100 100 In Sodium Chloride 0.9% 100 ml @ 200 mls/hr IVPB Q12HR ADAM Rx#:[id number] Pressure bag 72 72 36 Intake, IV Titration 261.673 519.318 327.533 Amount Ampicillin-Sulbactam 3 gm 100 In Sodium Chloride 0.9% 100 ml @ 200 mls/hr IVPB Q12HR ADAM Rx#:[id number] Anidulafungin 100 mg In 100 Sodium Chloride 0.9% 100 ml @ 84 mls/hr IVPB DAILY ADAM Rx#:[id number] Clevidipine Butyrate 25 3.4 224.400 127.533 mg In Empty Bag 1 bag @ 1 MG/HR 2 mls/hr IV .Q24H ADAM Rx#:[id number] Doxycycline 100 mg In 100 100 Sodium Chloride 0.9% 100 ml @ 100 mls/hr IVPB Q12HR ADAM Rx#:[id number] Heparin Sod,Pork in 0.45% 241.153 94.918 NaCl 25,000 unit In 0.45 % NaCl 1 250ml.bag @ 8 UNITS/KG/HR 8.944 mls/hr IV .Q24H ADMA Rx#: [id number] Norepinephrine 8 mg In 17.120 Sodium Chloride 0.9% 250 ml @ 0.05 MCG/KG/MIN 11. 165 mls/hr IV .Q23H7M ADAM Rx#:[id number] Tube Feeding 200 Other 105 Output: Urine 0 20 5 Hemodialysis 4000 Other: Voiding Method Indwelling Catheter Indwelling Catheter Indwelling Catheter ABP, PAP, CO, CI - Last Documented Arterial Blood Pressure 154/57 - Exam No acute distress S1-S2 heard Decreased breath sounds Abdomen distended Edema - Labs CBC & Chem 7: 04/03/20 04:05 04/03/20 04:05 Labs: Abnormal Lab Results - Last 24 Hours (Table) 04/02/20 04/02/20 04/02/20 Range/Units 13:00 14:38 17:54 WBC (3.8-10.6) k/uL RBC (4.30-5.90) m/uL Hgb (13.0-17.5) gm/dL Hct (39.0-53.0) % Neutrophils # (1.3-7.7) k/uL Lymphocytes # (1.0-4.8) k/uL APTT 102.2 H* (22.0-30.0) sec ABG pH 7.46 H (7.35-7.45) ABG pCO2 33 L (35-45) mmHg ABG pO2 123 H (83-108) mmHg ABG Total CO2 25 H (19-24) mmol/L ABG O2 Saturation (94-97) % Carbon Dioxide (22-30) mmol/L BUN (9-20) mg/dL Creatinine (0.66-1.25) mg/dL Glucose (74-99) mg/dL POC Glucose (mg/dL) 126 H (75-99) mg/dL AST (17-59) U/L ALT (4-49) U/L Alkaline Phosphatase (38-126) U/L Total Protein (6.3-8.2) g/dL Albumin (3.5-5.0) g/dL 04/02/20 04/02/20 04/03/20 Range/Units 19:45 21:00 00:04 WBC (3.8-10.6) k/uL RBC (4.30-5.90) m/uL Hgb (13.0-17.5) gm/dL Hct (39.0-53.0) % Neutrophils # (1.3-7.7) k/uL Lymphocytes # (1.0-4.8) k/uL APTT 44.5 H (22.0-30.0) sec ABG pH 7.46 H (7.35-7.45) ABG pCO2 33 L (35-45) mmHg ABG pO2 70 L (83-108) mmHg ABG Total CO2 (19-24) mmol/L ABG O2 Saturation 92.1 L (94-97) % Carbon Dioxide (22-30) mmol/L BUN (9-20) mg/dL Creatinine (0.66-1.25) mg/dL Glucose (74-99) mg/dL POC Glucose (mg/dL) 139 H (75-99) mg/dL AST (17-59) U/L ALT (4-49) U/L Alkaline Phosphatase (38-126) U/L Total Protein (6.3-8.2) g/dL Albumin (3.5-5.0) g/dL 04/03/20 04/03/20 04/03/20 Range/Units 04:05 04:05 04:05 WBC 13.1 H (3.8-10.6) k/uL RBC 3.32 L (4.30-5.90) m/uL Hgb 10.6 L (13.0-17.5) gm/dL Hct 31.7 L (39.0-53.0) % Neutrophils # 12.1 H (1.3-7.7) k/uL Lymphocytes # 0.4 L (1.0-4.8) k/uL APTT 36.2 H (22.0-30.0) sec ABG pH (7.35-7.45) ABG pCO2 (35-45) mmHg ABG pO2 (83-108) mmHg ABG Total CO2 (19-24) mmol/L ABG O2 Saturation (94-97) % Carbon Dioxide 18 L (22-30) mmol/L BUN 89 H (9-20) mg/dL Creatinine 4.16 H (0.66-1.25) mg/dL Glucose 146 H (74-99) mg/dL POC Glucose (mg/dL) (75-99) mg/dL AST 128 H (17-59) U/L ALT 87 H (4-49) U/L Alkaline Phosphatase 187 H (38-126) U/L Total Protein 4.7 L (6.3-8.2) g/dL Albumin 2.3 L (3.5-5.0) g/dL 04/03/20 04/03/20 04/03/20 Range/Units 05:46 11:32 12:05 WBC (3.8-10.6) k/uL RBC (4.30-5.90) m/uL Hgb (13.0-17.5) gm/dL Hct (39.0-53.0) % Neutrophils # (1.3-7.7) k/uL Lymphocytes # (1.0-4.8) k/uL APTT 46.9 H (22.0-30.0) sec ABG pH (7.35-7.45) ABG pCO2 (35-45) mmHg ABG pO2 (83-108) mmHg ABG Total CO2 (19-24) mmol/L ABG O2 Saturation (94-97) % Carbon Dioxide (22-30) mmol/L BUN (9-20) mg/dL Creatinine (0.66-1.25) mg/dL Glucose (74-99) mg/dL POC Glucose (mg/dL) 141 H 121 H (75-99) mg/dL AST (17-59) U/L ALT (4-49) U/L Alkaline Phosphatase (38-126) U/L Total Protein (6.3-8.2) g/dL Albumin (3.5-5.0) g/dL Assessment and Plan Assessment: #1 oliguric acute kidney injury currently dialysis dependent secondary to septic shock. Baseline creatinine 1.2 MG per DL. #2 septic shock secondary to pneumonia, currently off levo fed. #3 volume overload #4 metabolic acidosis Plan: #1 daily hemodialysis, goal filtration of 4 L today. #2 plan hemodialysis on Sunday. #3 avoid nephrotoxic agents and hypotensive episodes, monitor for renal recovery. #4 ICU care
[2020-04-03 15:02] LABS: Ionized Calcium 4.7 mg/dL (4.5-5.3)
[2020-04-03 15:11] LABS: Magnesium 2.5 mg/dL (1.6-2.3); Phosphorus 7.5 mg/dL (2.5-4.5)
[2020-04-03 17:52] LABS: Glucose,Whole Blood 102 mg/dL (75-99)
--- NOTE | 2020-04-03 18:14 | PN ---
PROGRESS NOTE DATE OF SERVICE: 04/03/2020 REASON FOR FOLLOWUP: Pneumonia. INTERVAL HISTORY: The patient is currently afebrile. The patient has been extubated. The patient is currently breathing comfortably on nasal cannula oxygen. Currently n.p.o. No vomiting has been reported and did have the fecal management system for the diarrhea but no worsening diarrhea has been reported by the nursing staff. Patient himself was unable to provide a reliable history. PHYSICAL EXAMINATION: Blood pressure is 145/69 with a pulse of 90, temperature of 99.3. He is 93% on BiPAP. General description is an elderly male lying in bed in no distress. Respiratory system: Unlabored breathing with decreased breath sounds in the base, with no wheeze. Heart S1, S2. Regular rate and rhythm. Abdomen soft, no tenderness. LABS: Hemoglobin is 10.8, white count 13.1, BUN of 29, creatinine 4.12. DIAGNOSTIC IMPRESSION AND PLAN: 1. Patient admitted to the hospital with pneumonia, concern for possible aspiration. The patient is sputum was negative for resistant pathogen on Unasyn, to continue. 2. Patient with elevated white count, possible ( ). His white count responded to the Eraxis added yesterday, to continue and monitor clinical course closely. MMODL / IJN: [id number] /
[2020-04-03] MEDS: HEPARIN SOD,PORK IN 0.45% NACL 25,000 UNIT in 0.45% NACL 1 250ML.BAG IV SCH (18:20)
[2020-04-03 23:12] LABS: Glucose,Whole Blood 107 mg/dL (75-99)
[2020-04-04] MEDS: CLEVIDIPINE BUTYRATE 25 MG in EMPTY BAG 1 BAG IV SCH ×11 (01:35→23:14)
[2020-04-04] MEDS: INSULIN ASPART (NovoLOG) 100 UNIT/ML VIAL SQ SCH ×4 (04:24→17:57)
[2020-04-04 05:08] LABS: Glucose,Whole Blood 99 mg/dL (75-99)
[2020-04-04] MEDS: CALCIUM ACETATE 667 MG TAB PO SCH ×3 (05:15→16:53)
[2020-04-04 05:21] LABS: Basophils % (A) 0 %; Eosinophils # (A) 0.1 k/uL (0-0.7); Eosinophils % (A) 1 %; HCT 30.7 % (39.0-53.0); HGB 10.2 gm/dL (13.0-17.5); Lymphocytes # (A) 0.5 k/uL (1.0-4.8); Lymphocytes % (A) 4 %; MCH 31.9 pg (25.0-35.0); MCHC 33.3 g/dL (31.0-37.0); Monocytes # (A) 0.5 k/uL (0-1.0); Monocytes % (A) 4 %; Neutrophils # (A) 13.4 k/uL (1.3-7.7); Neutrophils % (A) 91 %; Platelet Count 214 k/uL (150-450); RDW 14.2 % (11.5-15.5); WBC 14.6 k/uL (3.8-10.6)
[2020-04-04 05:35] LABS: Albumin 2.8 g/dL (3.5-5.0); Calcium 8.8 mg/dL (8.4-10.2); Magnesium 2.6 mg/dL (1.6-2.3); Potassium 5.1 mmol/L (3.5-5.1); Total Protein 5.9 g/dL (6.3-8.2)
[2020-04-04 06:18] LABS: Phosphorus 10.7 mg/dL (2.5-4.5)
[2020-04-04] MEDS: IPRATROPIUM-ALBUTEROL 3 ML NEB INHALATION SCH ×4 (07:21→19:17)
[2020-04-04] MEDS ORDERED: ACETAMINOPHEN IV (For NPO) 1,000 MG in EMPTY BAG 1 BAG IVPB ONE (08:00)
[2020-04-04] MEDS: PANTOPRAZOLE 40 MG/10 ML VIAL IVP SCH ×2 (08:47→19:54)
[2020-04-04] MEDS: AMPICILLIN-SULBACTAM 3 GM in SODIUM CHLORIDE 0.9% 100 ML IVPB SCH (08:48)
[2020-04-04] MEDS: DOXYCYCLINE 100 MG in SODIUM CHLORIDE 0.9% 100 ML IVPB SCH ×2 (08:48→19:54)
[2020-04-04] MEDS: ANIDULAFUNGIN 100 MG in SODIUM CHLORIDE 0.9% 100 ML IVPB SCH (08:51)
[2020-04-04] MEDS: ASPIRIN 81 MG PO SCH ×3 (08:59→11:02)
[2020-04-04] MEDS: ATORVASTATIN 40 MG TAB PO SCH (08:59)
[2020-04-04] MEDS: SODIUM BICARBONATE TAB 650 MG TAB PO SCH ×2 (08:59→19:53)
[2020-04-04] MEDS ORDERED: HEPARIN SODIUM,PORCINE 5,000 UNIT/ML 1 ML VIAL IV STA ×2 (09:13→16:25)
--- NOTE | 2020-04-04 10:04 | XR ---
EXAMINATION TYPE: XR chest 1V portable DATE OF EXAM: 04/04/2020 HISTORY: Shortness of breath. COMPARISON: April 03, 2020 TECHNIQUE: Single view of the chest is submitted. FINDINGS: Right IJ central venous line is unchanged in position. Dobbhoff tube is noted within the stomach. Basilar atelectasis and/or infiltrate noted. The heart is stable. Hilar and mediastinal structures are within normal limits. Degenerative changes are seen of the dorsal spine. IMPRESSION: 1. Dobbhoff tube is noted within the stomach.
--- NOTE | 2020-04-04 10:42 | P.PN ---
Subjective Progress Note Date: 04/04/20 The patient was seen at bedside and per the patient nurse he seems to be responding more today compared to yesterday. She stated he was telling her his names and had a squeeze on bilateral hands. She stated he has been worked out in the morning, and is tired now. His creatnine are worsening (4.16 to 5.09) His LFT's are trending up. Yesterday the EEG was attempted but patient was getting dialysis. Objective - Vital Signs Vital signs: Vital Signs Temp 99.1 F 04/04/20 04:00 Pulse 90 04/04/20 07:33 Resp 24 04/04/20 07:00 BP 138/70 04/04/20 07:00 Pulse Ox 93 L 04/04/20 07:00 Intake & Output 04/03/20 04/04/20 04/04/20 18:59 06:59 18:59 Intake Total 927.530 602.567 66 Output Total 10 5 Balance 917.530 597.567 66 Weight 105.8 kg Intake: IV 292 292 16 0.9 NACL 120 120 10 Ampicillin-Sulbactam 3 gm 100 100 In Sodium Chloride 0.9% 100 ml @ 200 mls/hr IVPB Q12HR ADAM Rx#:[id number] Pressure bag 72 72 6 Intake, IV Titration 635.530 310.567 50 Amount ACETAMINOPHEN IV (For NPO 100 ) 1,000 mg In Empty Bag 1 bag @ 400 mls/hr IVPB Q6HR PRN Rx#:[id number] Anidulafungin 100 mg In 100 Sodium Chloride 0.9% 100 ml @ 84 mls/hr IVPB DAILY ADAM Rx#:[id number] Clevidipine Butyrate 25 220.600 210.567 50 mg In Empty Bag 1 bag @ 1 MG/HR 2 mls/hr IV .Q24H ADAM Rx#:[id number] Doxycycline 100 mg In 100 100 Sodium Chloride 0.9% 100 ml @ 100 mls/hr IVPB Q12HR ADAM Rx#:[id number] Heparin Sod,Pork in 0.45% 114.93 NaCl 25,000 unit In 0.45 % NaCl 1 250ml.bag @ 8 UNITS/KG/HR 8.944 mls/hr IV .Q24H ADAM Rx#: [id number] Output: Urine 10 5 Other: Voiding Method Indwelling Catheter Indwelling Catheter ABP, PAP, CO, CI - Last Documented Arterial Blood Pressure 153/62 - Exam GENERAL: The patient is lying in bed and is not in acute distress. NEUROLOGICAL: Limited because of patient condition. Higher mental function: The patient is drowsy but awakeable to voice. He is oriented to self. Not responding to time or place. He is able to name cup on showing him. He is able to follow few simple commands (sticking tongue out and closing and opening eyes to voice and squeezing hand). He stated I am just tired. Otherwsie language is limited. Cranial nerves: The pupils are round, equal and reactive to light. Visual shen are hard to assess because of his condition. Extraocular movement is tracking throughout the room and no appreciable nystagmus from limited. There is no facial weakness noted bilaterally. Patient has brief bilateral frontal twitch but seem much better today compared to yesterday. Patient was able to stick the tongue out 3/[address] not move it side to side. Has weak cough. Has hypophonia but seemed better today compared to prior. Otherwise rest of cranial nerves could not be assessed because of patient condition. Motor: Gait could not be assessed because of his condition. The strength had hand mechanical artist of 2/5 otherwise 0/5 throughout. Decrease tone throughout. Normal bulk. Cerebellum: Could not be assessed. Sensation: Could not be assessed. Reflexes (right/left): 0/2 throughout. Plantars are mute bilaterally. - Labs CBC & Chem 7: 04/04/20 05:10 04/04/20 05:10 Labs: Abnormal Lab Results - Last 24 Hours (Table) 04/03/20 04/03/20 04/03/20 Range/Units 11:32 12:05 14:30 WBC (3.8-10.6) k/uL RBC (4.30-5.90) m/uL Hgb (13.0-17.5) gm/dL Hct (39.0-53.0) % Neutrophils # (1.3-7.7) k/uL Lymphocytes # (1.0-4.8) k/uL APTT 46.9 H (22.0-30.0) sec Carbon Dioxide (22-30) mmol/L BUN (9-20) mg/dL Creatinine (0.66-1.25) mg/dL Glucose (74-99) mg/dL POC Glucose (mg/dL) 121 H (75-99) mg/dL Phosphorus 7.5 H (2.5-4.5) mg/dL Magnesium 2.5 H (1.6-2.3) mg/dL AST (17-59) U/L ALT (4-49) U/L Alkaline Phosphatase (38-126) U/L Total Protein (6.3-8.2) g/dL Albumin (3.5-5.0) g/dL Triglycerides 382 H (<150) mg/dL 04/03/20 04/03/20 04/04/20 Range/Units 17:50 23:11 05:10 WBC (3.8-10.6) k/uL RBC (4.30-5.90) m/uL Hgb (13.0-17.5) gm/dL Hct (39.0-53.0) % Neutrophils # (1.3-7.7) k/uL Lymphocytes # (1.0-4.8) k/uL APTT (22.0-30.0) sec Carbon Dioxide 20 L (22-30) mmol/L BUN 105 H* (9-20) mg/dL Creatinine 5.09 H (0.66-1.25) mg/dL Glucose 106 H (74-99) mg/dL POC Glucose (mg/dL) 102 H 107 H (75-99) mg/dL Phosphorus 10.7 H* (2.5-4.5) mg/dL Magnesium 2.6 H (1.6-2.3) mg/dL AST 249 H (17-59) U/L ALT 121 H (4-49) U/L Alkaline Phosphatase 225 H (38-126) U/L Total Protein 5.9 L (6.3-8.2) g/dL Albumin 2.8 L (3.5-5.0) g/dL Triglycerides (<150) mg/dL 04/04/20 Range/Units 05:10 WBC 14.6 H (3.8-10.6) k/uL RBC 3.20 L (4.30-5.90) m/uL Hgb 10.2 L (13.0-17.5) gm/dL Hct 30.7 L (39.0-53.0) % Neutrophils # 13.4 H (1.3-7.7) k/uL Lymphocytes # 0.5 L (1.0-4.8) k/uL APTT (22.0-30.0) sec Carbon Dioxide (22-30) mmol/L BUN (9-20) mg/dL Creatinine (0.66-1.25) mg/dL Glucose (74-99) mg/dL POC Glucose (mg/dL) (75-99) mg/dL Phosphorus (2.5-4.5) mg/dL Magnesium (1.6-2.3) mg/dL AST (17-59) U/L ALT (4-49) U/L Alkaline Phosphatase (38-126) U/L Total Protein (6.3-8.2) g/dL Albumin (3.5-5.0) g/dL Triglycerides (<150) mg/dL Assessment and Plan Assessment: * Altered mental status likely due to multifactorial: Toxic-metabolic encephalopathy (elevated LFT's, CODY, hyperphosphatemia, medication induced (Decadron), episodes of hypoglycemia) and acute hypoxic respiratory failure, pneumonia---slight improving in mentation in last two days compared to prior * Deconditioning from his hospital stay/ICU, was intubated, hypotensive and requiring vasopressor and steroid use as well underlying infection (pneumonia) * Possible myopathy from Steroid use /Intubated and on Nimbex and also due to above * Elevated liver function test--trending up * Acute kidney injury requiring hemodialysis--worsening * Acute hypoxic respiratory failure * Pneumonia * Steroid-induced hyperglycemia resolved with episodes of hypoglycemia * New onset atrial fibrillation on heparin drip * Coffee-ground emesis resolved Plan: Ordered a routine EEG. I'll not start the patient on any antiepileptic drug unless there is epileptiform discharges or seizure on EEG. An EEG was attempted yesterday but not done since patient was getting dialysis. Patient has this bilateral frontal twitching and much better today compared to yesterday, and not convinced this is seizure. He is awake and responding. Possibly fibrillation due to electrolyte imbalance/metabolic encephalopathy. Ammonia level: 12 (normal). TSH: 0.505 (normal). Vitamin B-12: 930 (normal). RBC folate: pending. Most recent AST 249 and ALT: 121. At this moment I don't think a lumbar puncture is warranted at this time. I feel this is more toxic metabolic encephalopathy, medication use (Decadron and Nimbex) and multiple underlying infection. Infection disease is on board and they. If they feel at a lumbar puncture is warranted then we can pursue it but my opinion I don't think is critical at this moment. I ordered CPK level. Physical therapy, occupational therapy and speech therapy are consulted. Recommend EMG with NCS as outpatient if patient strength does not improve. Regarding electrolyte imbalance will defer the management to the primary team/ICU team. Currently the patient is on Unasyn and doxycycline. I.D. team are on board. I'll defer the rest of the medical management to the primary team as well as the ICU team. The plan was discussed with the patient's nurse. Dr. Crenshaw will start coverage tomorrow for neurology service. Dony Ceja MD Neuro-Hospitalist. Time with Patient: Less than 30
[2020-04-04] MEDS: amLODIPine 10 MG TAB NG-TUBE SCH (11:02)
--- NOTE | 2020-04-04 11:10 | P.PN ---
Subjective Progress Note Date: 04/04/20 Principal diagnosis: chest pain Patient is a 70-year-old male with coronary artery disease, hypertension, dyslipidemia and GERD who initially presented to [facility] with complaints of chest pain. He underwent extensive evaluation in the ER and was found to have a fever of 102. Chest x-ray was negative. CT PE negative. Influenza and COVID antigen testing were negative. Troponin and EKG did not reveal any signs of acute ischemia. He was admitted for further monitoring. His troponins remained negative. There was still a concern possible Covid 19 and PCR was tested which was negative. He developed worsening respiratory distress overnight on 03/22 and was subsequently started on Decadron, albuterol, and had an additional dose of Motrin secondary to his fevers. Cardiology was consulted for his chest pain and his troponins remained negative. They agreed with need for echocardiogram which showed ejection fraction of 55% with mild valvular disease. On the morning of 03/24 he has not had increased work of breathing and hypoxemia. Legionella urine antigen was ordered, 1 L bolus, and DuoNeb every 2 hours. He continued to decline and was subsequently transferred to the stepdown unit and started on BiPAP therapy requiring Ativan. Later that afternoon he again had worsening hypoxemia and hypotensive and he was subsequently transferred to the ICU and intubated and started on vasopressors. Pulmonary was consulted. They were concern about possible zoonotic infection or tularemia secondary to his recent coyote exposure. Infectious disease was subsequently consulted. He was found to have a pro-calcitonin greater than 2. He was continued on Doxy, Levaquin, and was started on Zosyn. Gentamicin was not added secondary to worsening kidney function. He continued to require vasopressors through 03/29 and those were able to be subsequently weaned. He had one episode of paroxysmal A. fib. He developed worsening renal function throughout his hospital stay. He required hemodialysis which was initiated on 03/27. He developed an ileus and surgery was consulted. He had one episode of coffee-ground NG tube output which was likely secondary to irritation from the nasogastric tube. His potassium remained elevated despite bicarb drip and hemodialysis. His tube feeds were adjusted. He again went into A. fib without rapid ventricular response on 04/01 overnight. He also had several episodes of hypoglycemia and insulin was stopped. He did well overnight on 04/02 and was subsequently extubated. He required BiPAP on 04/02/20. He was seen by neurology and EEG recommended, like metabolic encehalopathy. He continued to improve. His liver enzymes were increasing slightly. Patient seen and examined at bedside. He tries to speak but is too weak. When asked him if he is tired he knocked his head yes, not since had noted pain. Tracleer on the room. General: ill apperaing, no distress, appears at stated age Derm: warm, dry Head: atraumatic, normocephalic, symmetric Eyes: no lid lesion, PERRL, anicteric sclera Mouth: no lip lesion, mucus membranes dry Cardiovascular: S1S2 reg, no murmur, positive posterior tibial pulse bilateral, Lungs: Course SS bilateral, no rhonchi, no rales , no accessory muscle use Abdominal: soft, distended, nontender to palpation, no guarding, no appreciable organomegaly Ext: no gross muscle atrophy, diffuse anasarca, no contractures Neuro: No tremors, CN 2 through 12 grossly intact,Facial twitching left eyebrow Psych: Awake, Speak and following commands Acute hypoxic respiratory failure, Pneumonia, ARDS - + procalcitionin - ID and Pulm recs: Doxy, Unasyn, eraxis - pulm hygeine - Flu negative, COVID negative, sputum and blood cultures are negative, mind IgG and IgM negative, [place] AB negative will need repeat testing in 2 weeks - Speckled ALEX. C-ANCA and P-ANCA negative, negative anti GBM - off vent 2/ total Vent day 9 - off steroids 2/3 - on TF, swallow study in AM Transaminitis -Increasing need to monitor while patient is on Eraxis -Repeat liver functions in a.m. Toxic metabolic encephalopathy -Suspect secondary to prolonged ICU stay and need for multiple sedative m edications -Frequent reorientation -Neurology recommendations: EEG, continue to monitor facial twitching Hypertension -Attempt to wean off Clevidipine -Start Norvasc - follow BP Debility with extreme weakness, suspected ICU induced polymyopathy -PT/OT evaluation in a.m. -Supportive care CODY with secondary to ATN requiring hemodialysis, hyperphosphatemia - Dialysis again on 04/05, none 04/04 - Nephrology following - On oral bicarb - Nepro - phoslo New-onset paroxysmal A. fib - Cardiology recommendations - On heparin gtt - Not requiring rate or rhythm controlling medications Steroid induced hyperglycemia, resolved and now with episode of hypoglycemia - levemir stopped - continue with sliding scale - follow BS - A1C 6.1, repeat in 6 months Coffee ground emesis. resolved and due to NGT irritation Sepsis, resolved Transaminitis, improving Hypomagnesemia, resolved ileus, resolved Chest pain due to pleurisy, ACS ruled out hyperkalemia Hyponatremia secondary to fluid overload, resolved Chronic: Coronary artery disease GERD Hyperlipidemia DVT prophylaxis: Heparin gtt Discussed with: nursing, Anticipated discharge: unknown Anticipated discharge place: [facility] A total of 35 minutes was spent on the care of this complex patient more than 50% of the time was spent in counseling and care coordination. Objective - Vital Signs Vital signs: Vital Signs Temp 98.7 F 04/04/20 08:00 Pulse 80 04/04/20 10:00 Resp 24 04/04/20 10:00 BP 142/64 04/04/20 10:00 Pulse Ox 95 04/04/20 10:00 Intake & Output 04/03/20 04/04/20 04/04/20 18:59 06:59 18:59 Intake Total 927.530 602.567 659.309 Output Total 10 5 200 Balance 917.530 597.567 459.309 Weight 105.8 kg 105.8 kg Intake: IV 292 292 125 0.9 NACL 120 120 10 Ampicillin-Sulbactam 3 gm 100 100 100 In Sodium Chloride 0.9% 100 ml @ 200 mls/hr IVPB Q12HR COUNT INCLUDES THE [facility] Rx#:[id number] Pressure bag 72 72 15 Intake, IV Titration 635.530 310.567 534.309 Amount ACETAMINOPHEN IV (For NPO 100 ) 1,000 mg In Empty Bag 1 bag @ 400 mls/hr IVPB ONCE ONE Rx#:[id number] ACETAMINOPHEN IV (For NPO 100 ) 1,000 mg In Empty Bag 1 bag @ 400 mls/hr IVPB Q6HR PRN Rx#:[id number] Ampicillin-Sulbactam 3 gm 100 In Sodium Chloride 0.9% 100 ml @ 200 mls/hr IVPB Q12HR [facility] Rx#:[id number] Anidulafungin 100 mg In 100 Sodium Chloride 0.9% 100 ml @ 84 mls/hr IVPB DAILY [facility] Rx#:[id number] Clevidipine Butyrate 25 220.600 210.567 100 mg In Empty Bag 1 bag @ 1 MG/HR 2 mls/hr IV .Q24H [facility] Rx#:[id number] Doxycycline 100 mg In 100 100 100 Sodium Chloride 0.9% 100 ml @ 100 mls/hr IVPB Q12HR [facility] Rx#:[id number] Heparin Sod,Pork in 0.45% 114.93 134.309 NaCl 25,000 unit In 0.45 % NaCl 1 250ml.bag @ 8 UNITS/KG/HR 8.944 mls/hr IV .Q24H [facility] Rx#: [id number] Output: Urine 10 5 0 Stool 200 Other: Voiding Method Indwelling Catheter Indwelling Catheter Indwelling Catheter ABP, PAP, CO, CI - Last Documented Arterial Blood Pressure 153/60 - Labs CBC & Chem 7: 04/04/20 05:10 04/04/20 05:10 Labs: Abnormal Lab Results - Last 24 Hours (Table) 04/03/20 04/03/20 04/03/20 Range/Units 11:32 12:05 14:30 WBC (3.8-10.6) k/uL RBC (4.30-5.90) m/uL Hgb (13.0-17.5) gm/dL Hct (39.0-53.0) % Neutrophils # (1.3-7.7) k/uL Lymphocytes # (1.0-4.8) k/uL APTT 46.9 H (22.0-30.0) sec Carbon Dioxide (22-30) mmol/L BUN (9-20) mg/dL Creatinine (0.66-1.25) mg/dL Glucose (74-99) mg/dL POC Glucose (mg/dL) 121 H (75-99) mg/dL Phosphorus 7.5 H (2.5-4.5) mg/dL Magnesium 2.5 H (1.6-2.3) mg/dL AST (17-59) U/L ALT (4-49) U/L Alkaline Phosphatase (38-126) U/L Total Protein (6.3-8.2) g/dL Albumin (3.5-5.0) g/dL Triglycerides 382 H (<150) mg/dL 04/03/20 04/03/20 04/04/20 Range/Units 17:50 23:11 05:10 WBC (3.8-10.6) k/uL RBC (4.30-5.90) m/uL Hgb (13.0-17.5) gm/dL Hct (39.0-53.0) % Neutrophils # (1.3-7.7) k/uL Lymphocytes # (1.0-4.8) k/uL APTT (22.0-30.0) sec Carbon Dioxide 20 L (22-30) mmol/L BUN 105 H* (9-20) mg/dL Creatinine 5.09 H (0.66-1.25) mg/dL Glucose 106 H (74-99) mg/dL POC Glucose (mg/dL) 102 H 107 H (75-99) mg/dL Phosphorus 10.7 H* (2.5-4.5) mg/dL Magnesium 2.6 H (1.6-2.3) mg/dL AST 249 H (17-59) U/L ALT 121 H (4-49) U/L Alkaline Phosphatase 225 H (38-126) U/L Total Protein 5.9 L (6.3-8.2) g/dL Albumin 2.8 L (3.5-5.0) g/dL Triglycerides (<150) mg/dL 04/04/20 04/04/20 Range/Units 05:10 08:25 WBC 14.6 H (3.8-10.6) k/uL RBC 3.20 L (4.30-5.90) m/uL Hgb 10.2 L (13.0-17.5) gm/dL Hct 30.7 L (39.0-53.0) % Neutrophils # 13.4 H (1.3-7.7) k/uL Lymphocytes # 0.5 L (1.0-4.8) k/uL APTT 39.3 H (22.0-30.0) sec Carbon Dioxide (22-30) mmol/L BUN (9-20) mg/dL Creatinine (0.66-1.25) mg/dL Glucose (74-99) mg/dL POC Glucose (mg/dL) (75-99) mg/dL Phosphorus (2.5-4.5) mg/dL Magnesium (1.6-2.3) mg/dL AST (17-59) U/L ALT (4-49) U/L Alkaline Phosphatase (38-126) U/L Total Protein (6.3-8.2) g/dL Albumin (3.5-5.0) g/dL Triglycerides (<150) mg/dL
[2020-04-04] MEDS: NOREPINEPHRINE 8 MG in SODIUM CHLORIDE 0.9% 250 ML IV SCH (11:14)
[2020-04-04 11:34] LABS: Glucose,Whole Blood 119 mg/dL (75-99)
--- NOTE | 2020-04-04 11:39 | P.PN ---
Subjective Progress Note Date: 04/04/20 Principal diagnosis: Respiratory failure Reevaluated today on 03/28/2020, patient remains in the ICU, intubated and mechanically ventilated. Remains on the same ventilator settings, assist control rate of 26 tidal volume is 450 FiO2 50% PEEP of 14. ABG showed a pO2 of 89 pCO2 of 34 pH of 7.41, hence no change was made in the ventilator settings. However I noticed some leak around the endotracheal tube, and recommended respiratory to have more air in the cough, and adjustment of the endotracheal tube placement. Patient is on multiple drips including fentanyl 0.25 mcg/kg/h, norepinephrine is at 0.05 mcg/kg/m. Propofol at 60 mcg/kg/m. Heparin drip, insulin 5 units per hour drip, and bicarb drip at 75 mL per hour. Patient is back on enteral feeding since he responded well to lactulose, and had multiple bowel movements now he has a fecal management system. In place. Patient went into atrial fibrillation around 4:30 AM, however his rate seems to be fairly well controlled, and basically on heparin only. Underwent SLED yesterday, and was tolerated, 200 mL oFF. Chest x-ray continues to show bilateral interstitial infiltrates, consistent with ARDS. Although the possibility of interstitial edema/fluid overload secondary to renal failure and oliguria. Is not entirely ruled out. Microbiology from sputum and blood remains nondiagnostic. titer for Francisella is pending. CBC is normal WBC count is 7.6 hemoglobin is 10.8. PTT is 53.3. Liver enzymes remain slightly elevated. Repeat pro-calcitonin is pending. Urine Legionella antigen is negative On 03/29/2020 patient seen in follow-up in the intensive care unit, patient remains sedated, and intubated on mechanical ventilator current vent settings are assist control mode of ventilation with a rate of 26, tidal -450, FiO2 of 50% and PEEP of 14 this morning blood gases were reviewed showing pO2 112, pCO2 39 pH of 7.39 and subsequently FiO2 was dropped down to 45%. Is on multiple IV was including 0.9 normal saline at rate of 50 ML per hour, fentanyl at 0.5 mcg/kg/h, insulin at 3 units per hour, Diprivan is at 65 mics per kilogram per minute, levophed is at 4 mics per minute. Patient's tube feedings have been on hold since yesterday related to episode of coffee-ground emesis. Today's hemogl obin is 10.9, white blood cell count of 7.9, significantly improved from a few days ago, PTT is 43.4, sodium is 136, potassium is 5.1, CO2 is 21, chloride is 97, B1 is 92, creatinine is 6.52, patient had hemodialysis treatment yesterday and 1 L of fluid was removed. Nephrology is following, and patient is anticipated to have hemodialysis with ultrafiltration. Today's chest x-ray shows cardiomegaly with bilateral lower lung multifocal acute infiltrates and/or atelectasis and small bilateral pleural effusions and bilateral central vascular congestion. Patient also appears to be generally fluid overloaded. Vasopressor requirements have significantly improved from a few days ago. Blood and sputum cultures have shown no growth thus far. Continue urine antigen was negative, influenza and COVID 19 PCR were negative, awaiting results of the Francisella tularensis antibody test On 03/30/2020 patient seen in follow-up in the intensive care unit, he remains sedated and intubated on mechanical ventilator current vent settings are assist control mode of ventilation with a rate of 26, tidal volumes 450 FiO2 45% and PEEP of 14. This morning his blood gases have been reviewed showing pO2 of 113, pCO2 of 36 and pH of 7.38. PEEP was then dropped to 10. Patient IVs include 0.9 normal saline at a rate of 50 ML per hour, Diprivan is a 65 mics per kilo per minute, fentanyl drip is 0.5 mics per kilo per minute, insulin drip is at 3 units per hour. Tube feedings in the form of vital high-protein at a rate of 12 mL an hour, and the goal is 12. Today's labs have been reviewed, pro-calcitonin has improved although still significantly elevated at 59.06, cultures have been reviewed including blood and sputum cultures, and remain negative thus far, patient remains on doxycycline, Levaquin, and Zosyn, ID service is following. White blood cell count is 6.3, hemoglobin is 10.9, sodium is 131, potassium is 5.8, chloride is 97, CO2 is 18, B1 is 100, and creatinine is 5.5. Remains in anuric, he had hemodialysis yesterday with removal of 1 L of fluid. Today's chest x-ray has been reviewed showing improving right lower lobe infiltrate. No acute events overnight, patient has not had any further bleeding, tolerating tube feedings well. Has been afebrile. Not requiring any vasopressor support. Progress note dated 03/31/2020. 70-year-old male again seen in the intensive care unit. The patient remains intubated and mechanically ventilated. He is on the volume assist control mo dality, rate 26, tidal volume 450, FiO2 45%, but 10. Arterial blood gases show a PaO2 of 100, PaCO2 of 34, pH is 7.38. The patient's currently on saline 10 mL an hour, fentanyl drip at 1 mcg/kg per hour, propofol at 70 mcg/kg/m, and vital high protein at 12 cc per hour, which is goal. His Francisella tularensis antibody test was negative. I believe the patient is a good candidate today for a daily interruption of sedation and a spontaneous trial potentially. We planned to think about doing a bronchoscopy on the patient today for sampling, but it was not done yesterday. The patient is not requiring any blood pressure support. White count is 10.3, hemoglobin 11.7, hematocrit 34.6, and platelet count 217,000. Sodium was 1:30, potassium 6.1, chloride 96, CO2 17, anion gap 17, and BUN of 107 with a creatinine of 5.34. His albumin is 2.3. AST is 89, ALT is 85. Microbiologic studies were negative. Chest x-ray could not be retrieved, and the official report is pending. The patient remains on Levaquin, doxycycline, and Zosyn. Progress note dated 04/01/2020. 70-year-old male, again seen in the intensive care unit today. The patient remained on the ventilator overnight. Yesterday, he apparently attempted a daily eruption of sedation and a spontaneous breathing trial, and the patient apparently became hypertensive and he was recently dated. Nobody told me of this. I did tell them today again to do another daily eruption of sedation and a spontaneous breathing trial. The patient should be on pressure support of 10, CPAP of 5, and if his blood pressure goes up, they should use Cleveprex to control it. He did have hemodialysis yesterday, 4 L was removed. He still has significant scrotal edema. Currently, he is on the volume assist control modality, rate 26, tidal volume 450, FiO2 45%, and a PEEP of 10. Arterial blood gases show a PaO2 of 110, PaCO2 37, and a pH 7.36. The patient remains on propofol at 40 g kilogram per minute, fentanyl at 1 mcg/kg/h, saline at KVO, and vital high protein at goal, which is 44 mL an hour. Progress note dated 04/02/2020. 70-year-old male, seen in the intensive care unit today. He remains on the mechanical ventilator. He is on the volume assist control mode, rate 26, tidal volume 450, FiO2 45%, PEEP of 10. Arterial blood gases show a PaO2 of 140, PaCO2 36, and a pH is 7.43. The PEEP was dropped from 10-5. The patient's on heparin via weightbase protocol, norepinephrine at 2.2 mcg/m, saline at KVO, and tube feeds with Nepro at 16 mL an hour, which is goal. The patient did have hemodialysis yesterday, and 3-1/2 L was removed. Today, the patient will have a spontaneous breathing trial. He'll be placed on pressure support of 5 and CPAP of 5. The patient's mental status is not great. The patient has been off of sedation for more than 24 hours. White count is 18.1, hemoglobin 11.1, hematocrit 32.3, and platelet count 194,000. PTT is 99.5. Sodium potassium chloride CO2 and anion gap are all normal. BUN is 93, and creatinine is 4.61. Microbiologic studies are negative. The patient is seen today 04/03/2020 in follow-up in the intensive care unit. He was successfully extubated yesterday. He remains on BiPAP at 12/5 and 50% FiO2. Blood gases on 6 L nasal cannula revealed a pO2 of 70, pCO2 33, pH 7.45. He is currently on Klonopin at 13 mg per hour. Heparin per weight-based protocol. 0.9 normal saline at 10 minimal per hour. He is being nourished with TPN. Swallow evaluation pending. Computed tomography scan of the brain revealed no acute abnormalities. EEG is pending. He is awake. Alert. Following simple commands. He is extremely weak. Blood and sputum cultures revealed no growth. White count 13.1. Hemoglobin 10.6. Sodium 139. Potassium 4.7. Creatinine 4.16. AST 128. ALT 87. Alk phos 187. Albumin 2.3. He remains on Unasyn, doxycycline, Eraxis. Continued on bronchodilators. Patient is seen today for very 2020 in follow-up in the intensive care unit. He is currently resting comfortably in bed. He is down to 6 L high flow nasal cannula to maintain O2 saturations in the 90s. He remains hypertensive and on quinapril at 12 mg per hour. He remains on heparin per weight-based protocol. 0.9 normal saline at KVO. He did receive hemodialysis yesterday with 4 L removed. He remains in atrial fibrillation with a controlled ventricular rate. He is awake. Following some simple commands. He has a very soft voice. Very weak cough. Very debilitated. Blood cultures reveal no growth. Sputum culture reveals no growth. White count 14.6. Hemoglobin 10.2. Sodium 138. Potassium 5.1. Creatinine 5.09. BUN 105. Phosphorus 10.7. AST 249. ALT 121. He remains on Unasyn, doxycycline and Eraxis. Continued on bronchodilators. Dobbhoff tube was placed for nutritional support. Objective - Vital Signs Vital signs: Vital Signs Temp 98.7 F 04/04/20 08:00 Pulse 86 04/04/20 11:00 Resp 26 H 04/04/20 11:00 BP 140/64 04/04/20 11:00 Pulse Ox 95 04/04/20 11:00 Intake & Output 04/03/20 04/04/20 04/04/20 18:59 06:59 18:59 Intake Total 927.530 602.567 782.309 Output Total 10 5 200 Balance 917.530 597.567 582.309 Weight 105.8 kg 105.8 kg Intake: IV 292 292 128 0.9 NACL 120 120 10 Ampicillin-Sulbactam 3 gm 100 100 100 In Sodium Chloride 0.9% 100 ml @ 200 mls/hr IVPB Q12HR [facility] Rx#:[id number] Pressure bag 72 72 18 Intake, IV Titration 635.530 310.567 534.309 Amount ACETAMINOPHEN IV (For NPO 100 ) 1,000 mg In Empty Bag 1 bag @ 400 mls/hr IVPB ONCE ONE Rx#:[id number] ACETAMINOPHEN IV (For NPO 100 ) 1,000 mg In Empty Bag 1 bag @ 400 mls/hr IVPB Q6HR PRN Rx#:[id number] Ampicillin-Sulbactam 3 gm 100 In Sodium Chloride 0.9% 100 ml @ 200 mls/hr IVPB Q12HR [facility] Rx#:[id number] Anidulafungin 100 mg In 100 Sodium Chloride 0.9% 100 ml @ 84 mls/hr IVPB DAILY [facility] Rx#:[id number] Clevidipine Butyrate 25 220.600 210.567 100 mg In Empty Bag 1 bag @ 1 MG/HR 2 mls/hr IV .Q24H [facility] Rx#:[id number] Doxycycline 100 mg In 100 100 100 Sodium Chloride 0.9% 100 ml @ 100 mls/hr IVPB Q12HR [facility] Rx#:[id number] Heparin Sod,Pork in 0.45% 114.93 134.309 NaCl 25,000 unit In 0.45 % NaCl 1 250ml.bag @ 8 UNITS/KG/HR 8.944 mls/hr IV .Q24H [facility] Rx#: [id number] Tube Feeding 40 Other 80 Output: Urine 10 5 0 Stool 200 Other: Voiding Method Indwelling Catheter Indwelling Catheter Indwelling Catheter ABP, PAP, CO, CI - Last Documented Arterial Blood Pressure 178/60 - Exam GENERAL EXAM: Alert, extremely weak 70-year-old gentleman, on 6 L high flow nasal cannula, fairly comfortable in no apparent distress. HEAD: Normocephalic. EYES: Normal reaction of pupils, equal size. NOSE: Dobbhoff tube placed in the right nare. Clear with pink turbinates. THROAT: No erythema or exudates. NECK: No masses, no JVD. CHEST: No chest wall deformity. LUNGS: Equal air entry with scattered rhonchi bilaterally. CVS: S1 and S2 normal with no audible murmur, regular rhythm. ABDOMEN: No hepatosplenomegaly, normal bowel sounds, no guarding or rigidity. SPINE: No scoliosis or deformity SKIN: No rashes CENTRAL NERVOUS SYSTEM: No focal deficits, tone is normal in all 4 extremities. EXTREMITIES: There is 1-2+ peripheral edema. No clubbing, no cyanosis. Peripheral pulses are intact. - Labs CBC & Chem 7: 04/04/20 05:10 04/04/20 05:10 Labs: Abnormal Lab Results - Last 24 Hours (Table) 04/03/20 04/03/20 04/03/20 Range/Units 11:32 12:05 14:30 WBC (3.8-10.6) k/uL RBC (4.30-5.90) m/uL Hgb (13.0-17.5) gm/dL Hct (39.0-53.0) % Neutrophils # (1.3-7.7) k/uL Lymphocytes # (1.0-4.8) k/uL APTT 46.9 H (22.0-30.0) sec Carbon Dioxide (22-30) mmol/L BUN (9-20) mg/dL Creatinine (0.66-1.25) mg/dL Glucose (74-99) mg/dL POC Glucose (mg/dL) 121 H (75-99) mg/dL Phosphorus 7.5 H (2.5-4.5) mg/dL Magnesium 2.5 H (1.6-2.3) mg/dL AST (17-59) U/L ALT (4-49) U/L Alkaline Phosphatase (38-126) U/L Total Protein (6.3-8.2) g/dL Albumin (3.5-5.0) g/dL Triglycerides 382 H (<150) mg/dL 04/03/20 04/03/20 04/04/20 Range/Units 17:50 23:11 05:10 WBC (3.8-10.6) k/uL RBC (4.30-5.90) m/uL Hgb (13.0-17.5) gm/dL Hct (39.0-53.0) % Neutrophils # (1.3-7.7) k/uL Lymphocytes # (1.0-4.8) k/uL APTT (22.0-30.0) sec Carbon Dioxide 20 L (22-30) mmol/L BUN 105 H* (9-20) mg/dL Creatinine 5.09 H (0.66-1.25) mg/dL Glucose 106 H (74-99) mg/dL POC Glucose (mg/dL) 102 H 107 H (75-99) mg/dL Phosphorus 10.7 H* (2.5-4.5) mg/dL Magnesium 2.6 H (1.6-2.3) mg/dL AST 249 H (17-59) U/L ALT 121 H (4-49) U/L Alkaline Phosphatase 225 H (38-126) U/L Total Protein 5.9 L (6.3-8.2) g/dL Albumin 2.8 L (3.5-5.0) g/dL Triglycerides (<150) mg/dL 04/04/20 04/04/20 Range/Units 05:10 08:25 WBC 14.6 H (3.8-10.6) k/uL RBC 3.20 L (4.30-5.90) m/uL Hgb 10.2 L (13.0-17.5) gm/dL Hct 30.7 L (39.0-53.0) % Neutrophils # 13.4 H (1.3-7.7) k/uL Lymphocytes # 0.5 L (1.0-4.8) k/uL APTT 39.3 H (22.0-30.0) sec Carbon Dioxide (22-30) mmol/L BUN (9-20) mg/dL Creatinine (0.66-1.25) mg/dL Glucose (74-99) mg/dL POC Glucose (mg/dL) (75-99) mg/dL Phosphorus (2.5-4.5) mg/dL Magnesium (1.6-2.3) mg/dL AST (17-59) U/L ALT (4-49) U/L Alkaline Phosphatase (38-126) U/L Total Protein (6.3-8.2) g/dL Albumin (3.5-5.0) g/dL Triglycerides (<150) mg/dL Assessment and Plan Assessment: 1 Acute hypoxic respiratory failure requiring intubation and mechanical ventilation on 03/24/2020, extubated to BiPAP on 04/02/2020, currently on 6 L high flow nasal cannula, related to acute pneumonia, titers for Francisella are negative. Sputum cultures and blood cultures are negative, Legionella urine antigen was negative. Influenza and COVID 19 PCR were negative. 2 Acute septic shock requiring pressors, resolved. 3 Acute ARDS secondary to pneumonia and sepsis 4 Acute kidney injury suspect acute tubular necrosis from hypotension and septic shock, requiring hemodialysis and ultrafiltration 5 Acute diastolic congestive heart failure. Echocardiogram showed no evidence of LV dysfunction and no evidence of pericardial effusion 6 History of underlying coronary artery disease 7 Hypertension. Currently on clevidipine 12 mg per hour 8 Multiorgan system failure secondary to sepsis and septic shock 9 Ex-smoker 10 New-onset atrial fibrillation, rate is controlled, heparin drip remains 11 Acute ileus, resolved 12 Episode of coffee-ground emesis. Plan: The patient was seen and evaluated by Dr. Brenna Hernandez tube placed for nutritional support Reinitiate hypertensive medications Titrate down the of atropine as tolerated Swallow evaluation tomorrow Titrate down the FiO2 as tolerated Continue current antibiotics Continue to follow here in the intensive care unit Further recommendations based on his clinical status Critical care time 38 minutes not including procedures I, the cosigning physician, performed a history & physical examination of the patient. Lungs sounds hoarse bilateral scattered rhonchi. Maintaining good O2 saturations in the 90s on 6 L high flow nasal cannula. I discussed the assessment and plan of care with my nurse practitioner, Angelique Hair. I attest to the above note as dictated by her.
[2020-04-04] MEDS ORDERED: FUROSEMIDE 10 MG/ML 10 ML VIAL IV STA (11:55)
--- NOTE | 2020-04-04 12:06 | P.PN ---
Subjective Progress Note Date: 04/04/20 Follow up for acute kidney injury. Hemodynamically stable still oliguric. Objective - Vital Signs Vital signs: Vital Signs Temp 98.7 F 04/04/20 08:00 Pulse 88 04/04/20 11:43 Resp 26 H 04/04/20 11:00 BP 140/64 04/04/20 11:00 Pulse Ox 95 04/04/20 11:00 Intake & Output 04/03/20 04/04/20 04/04/20 18:59 06:59 18:59 Intake Total 927.530 602.567 782.309 Output Total 10 5 400 Balance 917.530 597.567 382.309 Weight 105.8 kg 105.8 kg Intake: IV 292 292 128 0.9 NACL 120 120 10 Ampicillin-Sulbactam 3 gm 100 100 100 In Sodium Chloride 0.9% 100 ml @ 200 mls/hr IVPB Q12HR [facility] Rx#:[id number] Pressure bag 72 72 18 Intake, IV Titration 635.530 310.567 534.309 Amount ACETAMINOPHEN IV (For NPO 100 ) 1,000 mg In Empty Bag 1 bag @ 400 mls/hr IVPB ONCE ONE Rx#:[id number] ACETAMINOPHEN IV (For NPO 100 ) 1,000 mg In Empty Bag 1 bag @ 400 mls/hr IVPB Q6HR [facility]N Rx#:[id number] Ampicillin-Sulbactam 3 gm 100 In Sodium Chloride 0.9% 100 ml @ 200 mls/hr IVPB Q12HR [facility] Rx#:[id number] Anidulafungin 100 mg In 100 Sodium Chloride 0.9% 100 ml @ 84 mls/hr IVPB DAILY [facility] Rx#:[id number] Clevidipine Butyrate 25 220.600 210.567 100 mg In Empty Bag 1 bag @ 1 MG/HR 2 mls/hr IV .Q24H [facility] Rx#:[id number] Doxycycline 100 mg In 100 100 100 Sodium Chloride 0.9% 100 ml @ 100 mls/hr IVPB Q12HR [facility] Rx#:[id number] Heparin Sod,Pork in 0.45% 114.93 134.309 NaCl 25,000 unit In 0.45 % NaCl 1 250ml.bag @ 8 UNITS/KG/HR 8.944 mls/hr IV .Q24H [facility] Rx#: [id number] Tube Feeding 40 Other 80 Output: Urine 10 5 0 Stool 400 Other: Voiding Method Indwelling Catheter Indwelling Catheter Indwelling Catheter ABP, PAP, CO, CI - Last Documented Arterial Blood Pressure 178/60 - Exam No acute distress S1-S2 heard Decreased breath sounds Abdomen distended Edema - Labs CBC & Chem 7: 04/04/20 05:10 04/04/20 05:10 Labs: Abnormal Lab Results - Last 24 Hours (Table) 04/03/20 04/03/20 04/03/20 Range/Units 12:05 14:30 17:50 WBC (3.8-10.6) k/uL RBC (4.30-5.90) m/uL Hgb (13.0-17.5) gm/dL Hct (39.0-53.0) % Neutrophils # (1.3-7.7) k/uL Lymphocytes # (1.0-4.8) k/uL APTT 46.9 H (22.0-30.0) sec Carbon Dioxide (22-30) mmol/L BUN (9-20) mg/dL Creatinine (0.66-1.25) mg/dL Glucose (74-99) mg/dL POC Glucose (mg/dL) 102 H (75-99) mg/dL Phosphorus 7.5 H (2.5-4.5) mg/dL Magnesium 2.5 H (1.6-2.3) mg/dL AST (17-59) U/L ALT (4-49) U/L Alkaline Phosphatase (38-126) U/L Total Protein (6.3-8.2) g/dL Albumin (3.5-5.0) g/dL Triglycerides 382 H (<150) mg/dL 04/03/20 04/04/20 04/04/20 Range/Units 23:11 05:10 05:10 WBC 14.6 H (3.8-10.6) k/uL RBC 3.20 L (4.30-5.90) m/uL Hgb 10.2 L (13.0-17.5) gm/dL Hct 30.7 L (39.0-53.0) % Neutrophils # 13.4 H (1.3-7.7) k/uL Lymphocytes # 0.5 L (1.0-4.8) k/uL APTT (22.0-30.0) sec Carbon Dioxide 20 L (22-30) mmol/L BUN 105 H* (9-20) mg/dL Creatinine 5.09 H (0.66-1.25) mg/dL Glucose 106 H (74-99) mg/dL POC Glucose (mg/dL) 107 H (75-99) mg/dL Phosphorus 10.7 H* (2.5-4.5) mg/dL Magnesium 2.6 H (1.6-2.3) mg/dL AST 249 H (17-59) U/L ALT 121 H (4-49) U/L Alkaline Phosphatase 225 H (38-126) U/L Total Protein 5.9 L (6.3-8.2) g/dL Albumin 2.8 L (3.5-5.0) g/dL Triglycerides (<150) mg/dL 04/04/20 04/04/20 Range/Units 08:25 11:32 WBC (3.8-10.6) k/uL RBC (4.30-5.90) m/uL Hgb (13.0-17.5) gm/dL Hct (39.0-53.0) % Neutrophils # (1.3-7.7) k/uL Lymphocytes # (1.0-4.8) k/uL APTT 39.3 H (22.0-30.0) sec Carbon Dioxide (22-30) mmol/L BUN (9-20) mg/dL Creatinine (0.66-1.25) mg/dL Glucose (74-99) mg/dL POC Glucose (mg/dL) 119 H (75-99) mg/dL Phosphorus (2.5-4.5) mg/dL Magnesium (1.6-2.3) mg/dL AST (17-59) U/L ALT (4-49) U/L Alkaline Phosphatase (38-126) U/L Total Protein (6.3-8.2) g/dL Albumin (3.5-5.0) g/dL Triglycerides (<150) mg/dL Assessment and Plan Assessment: #1 oliguric acute kidney injury currently dialysis dependent secondary to septic shock. Baseline creatinine 1.2 MG per DL. #2 septic shock secondary to pneumonia, currently off levo fed. #3 volume overload #4 metabolic acidosis Plan: #1 daily hemodialysis, goal filtration of 4 L yesterday. #2 try Lasix challenge today with 80 mg IV 4 shock followed by a drip at 10 ML's an hour. #3 plan hemodialysis on Sunday long treatment of 4.5 hours with 4.5 L ul trafiltration. If responding to Lasix drip and nonoliguric dialysis can be on hold.. #4 avoid nephrotoxic agents and hypotensive episodes, monitor for renal recovery. #5 ICU care
[2020-04-04] MEDS: FUROSEMIDE 100 MG in SODIUM CHLORIDE 0.9% 90 ML IV SCH ×2 (12:08→18:39)
[2020-04-04] MEDS ORDERED: METOPROLOL TARTRATE 12.5 MG TAB NG-TUBE STA (14:52)
[2020-04-04 17:52] LABS: Glucose,Whole Blood 110 mg/dL (75-99)
[2020-04-04] MEDS: HEPARIN SOD,PORK IN 0.45% NACL 25,000 UNIT in 0.45% NACL 1 250ML.BAG IV SCH (18:40)
[2020-04-04] MEDS: METOPROLOL TARTRATE 12.5 MG TAB NG-TUBE SCH (19:53)
--- NOTE | 2020-04-04 22:56 | PN ---
PROGRESS NOTE DATE OF SERVICE: 04/04/2020 REASON FOR FOLLOWUP: 1. Pneumonia. 2. Oropharyngeal candidiasis. INTERVAL HISTORY: The patient is currently afebrile. The patient is slightly more awake and following commands. He did have the Dobbhoff tube for feeding. No worsening diarrhea has been reported. He is hemodynamically stable, not on pressor support. PHYSICAL EXAMINATION: Blood pressure 149/82 with a pulse of 90, temperature 98. He is 96% on 40% FiO2. General description is an elderly male lying in bed in no distress. Respiratory system: Unlabored breathing, decreased breath sounds in the base. No wheeze. Heart S1, S2. Regular rate and rhythm. ABDOMEN: Soft, no tenderness. LABS: Hemoglobin is 10.1, white count 14.6, BUN of 105, creatinine 5.09. DIAGNOSTIC IMPRESSION AND PLAN: 1. Patient with pneumonia, possible aspiration with IgM antigen will be repeated. Patient is covered with Unasyn and doxycycline to continue. 2. Oropharyngeal candidiasis. Continue with Eraxis. White count showing a downward trend. MMODL / IJN: [id number] /
[2020-04-04 23:33] LABS: Glucose,Whole Blood 129 mg/dL (75-99)
[2020-04-05] MEDS: INSULIN ASPART (NovoLOG) 100 UNIT/ML VIAL SQ SCH ×4 (01:28→17:14)
[2020-04-05] MEDS: CLEVIDIPINE BUTYRATE 25 MG in EMPTY BAG 1 BAG IV SCH ×8 (01:29→17:03)
[2020-04-05] MEDS: CALCIUM ACETATE 667 MG TAB PO SCH ×3 (03:29→16:39)
[2020-04-05] MEDS: FUROSEMIDE 100 MG in SODIUM CHLORIDE 0.9% 90 ML IV SCH (04:36)
[2020-04-05 04:51] LABS: HCT 30.3 % (39.0-53.0); HGB 9.9 gm/dL (13.0-17.5); MCH 31.7 pg (25.0-35.0); MCHC 32.7 g/dL (31.0-37.0); MCV 97.1 fL (80.0-100.0); Mean Platelet Volume 10.3; Platelet Count 214 k/uL (150-450); RBC 3.12 m/uL (4.30-5.90); RDW 14.7 % (11.5-15.5)
[2020-04-05 06:04] LABS: Glucose,Whole Blood 125 mg/dL (75-99)
[2020-04-05 06:27] LABS: Albumin 2.7 g/dL (3.5-5.0); Calcium 8.3 mg/dL (8.4-10.2); Magnesium 2.6 mg/dL (1.6-2.3); Total Bilirubin 1.1 mg/dL (0.2-1.3); Total Protein 5.9 g/dL (6.3-8.2)
[2020-04-05 06:57] LABS: Phosphorus 12.7 mg/dL (2.5-4.5)
--- NOTE | 2020-04-05 07:11 | P.PN ---
Subjective Progress Note Date: 04/05/20 70-year-old male patient, known history of coronary artery disease, known history of hypertension, came into the hospital because of septic shock. The patient was complaining of dry cough, fever and chills and diaphoresis. The patient also was expressing diffuse chest discomfort with inspiration. His initial CAT scan of the chest that was done on 03/22/2020 showed no evidence of any pulmonary embolism. No evidence of any infiltration. Minimal left basilar atelectatic change. Subsequently, he was transferred to the intensive care and he developed worsening shortness of breath and hypoxemia. He became hypotensive and was placed on a BiPAP and at a later stage division was intubated and placed on a mechanical ventilator. He ended up in ARDS. He required pressors for septic shock. His pro-calcitonin level was as high as 73. During the course of his illness, the patient was sedated, paralyzed, treated with pressors, treated with broad-spectrum antibiotics and all of the cultures were negative. There was a concern for Francisella infection as the patient was around [facility] , yet the cultures were negative and the titers for Francisella were also negative. Urine legionella antigen was also negative. Influenza screen was negative. The Covid 19 testing was also negative. During the course of his illness, the patient also developed acute kidney injury requiring dialysis. He is currently requiring dialysis per nephrology. He was subsequently extubated to a BiPAP and later on switched to 6 L of oxygen by nasal cannula. He was receiving TPN for nutritional support. A Dobbhoff catheter was inserted yesterday for enteral feeding and nutritional support and a swallow evaluation is to follow. His CPK was elevated and the patient was found to have a component of rhabdomyolysis. His antibiotic coverage includes a combination of Unasyn, doxycycline and axis. Infectious disease also on the case. Currently is in atrial fibrillation. He is maintaining his pressure without any pressors and the patient is currently on Lasix drip at 10 mg an hour. Patient is on IV heparin drip. Clevidipine drip is also being is less for tighter blood pressure control. Antihypertensive medications was initiated including Norvasc 10 mg by mouth daily. He is also on metoprolol 12.5 mg by mouth twice a day. Triple-lumen catheter in place in the right internal jugular vein. On today's evaluation, the patient is very much lethargic. He is arousable. He doesn't amount of communication. He is still on 5 L of oxygen by nasal cannula. The patient is alternating with oxygen and BiPAP at a pressure of 12/5 cm of water and FiO2 of 40%. He is going to undergo dialysis today. He remains on Lasix drip at 10 mg an hour. Urine output is no order of 25 mL a shift. He remains to have some liquidy stool medications has a fecal management system in place. No abdominal distention. He remains edematous in all 4 extremities. A Dobbhoff catheter was inserted yesterday and the patient is receiving Nepro with a goal of 40 mL an hour for enteral nutrition and dietary support. No fever. Remains on the same antibiotic coverage. CPK was noted to be elevated and there was an obvious component of rhabdomyolysis on yesterday's blood work.The blood work today also showing a potassium level of 6.0 and the patient has acidosis and anion gap type with a serum bicarb of 14. His calcium level is 12.7. His CPK level needs to be repeated. He was an obvious rhabdomyolysis and his AST is up to 481 ALT is 198 with an alkaline phosphatase of 295. Elevation of the AST is probably related to rhabdomyolysis. He remains in atrial fibrillation with a controlled rate. Objective - Vital Signs Vital signs: Vital Signs Temp 99 F 04/05/20 04:00 Pulse 73 04/05/20 06:00 Resp 24 04/05/20 06:00 BP 134/67 04/05/20 06:00 Pulse Ox 96 04/05/20 06:00 Intake & Output 04/04/20 04/04/20 04/05/20 06:59 18:59 06:59 Intake Total 337.982 3140.428 1295.867 Output Total 5 605 15 Balance 597.567 152.268 2503.867 Weight 105.8 kg 105.8 kg 109.6 kg Intake: IV 292 182 182 0.9 NACL 120 10 110 Ampicillin-Sulbactam 3 gm 100 100 In Sodium Chloride 0.9% 100 ml @ 200 mls/hr IVPB Q12HR [facility] Rx#:[id number] Pressure bag 72 72 72 Intake, IV Titration 310.567 935.428 543.867 Amount ACETAMINOPHEN IV (For NPO 100 ) 1,000 mg In Empty Bag 1 bag @ 400 mls/hr IVPB ONCE ONE Rx#:[id number] Ampicillin-Sulbactam 3 gm 100 In Sodium Chloride 0.9% 100 ml @ 200 mls/hr IVPB Q12HR [facility] Rx#:[id number] Clevidipine Butyrate 25 210.567 277.133 244.367 mg In Empty Bag 1 bag @ 1 MG/HR 2 mls/hr IV .Q24H [facility] Rx#:[id number] Doxycycline 100 mg In 100 100 200 Sodium Chloride 0.9% 100 ml @ 100 mls/hr IVPB Q12HR [facility] Rx#:[id number] Furosemide 100 mg In 115.167 99.5 Sodium Chloride 0.9% 90 ml @ 10 MG/HR 10 mls/hr IV .Q10H [facility] Rx#: [id number] Heparin Sod,Pork in 0.45% 243.128 NaCl 25,000 unit In 0.45 % NaCl 1 250ml.bag @ 8 UNITS/KG/HR 8.944 mls/hr IV .Q24H [facility] Rx#: [id number] Tube Feeding 320 480 Other 140 90 Output: Urine 5 5 15 Stool 600 Other: Voiding Method Indwelling Catheter Indwelling Catheter Indwelling Catheter ABP, PAP, CO, CI - Last Documented Arterial Blood Pressure 158/58 - Exam GENERAL EXAM: Alert, extremely weak 70-year-old gentleman, on 5 L high flow nasal cannula, fairly comfortable in no apparent distress. HEAD: Normocephalic. EYES: Normal reaction of pupils, equal size. NOSE: Dobbhoff tube placed in the right nare. Clear with pink turbinates. THROAT: No erythema or exudates. NECK: No masses, no JVD. CHEST: No chest wall deformity. LUNGS: Equal air entry with scattered rhonchi bilaterally. CVS: S1 and S2 normal with no audible murmur, regular rhythm. ABDOMEN: No hepatosplenomegaly, normal bowel sounds, no guarding or rigidity. SPINE: No scoliosis or deformity SKIN: No rashes CENTRAL NERVOUS SYSTEM: No focal deficits, the patient is diminished on the diminished muscle power in all 4 extremities. Unable to raise his arms against gravity. He remains profoundly weak. Legs are also weak. Neurologically, pupils are equal and reactive to light. No facial asymmetry. EXTREMITIES: There is 1-2+ peripheral edema. No clubbing, no cyanosis. Peripheral pulses are intact. - Labs CBC & Chem 7: 04/05/20 04:30 04/05/20 04:30 Labs: Abnormal Lab Results - Last 24 Hours (Table) 04/04/20 04/04/20 04/04/20 Range/Units 05:10 08:25 11:32 WBC (3.8-10.6) k/uL RBC (4.30-5.90) m/uL Hgb (13.0-17.5) gm/dL Hct (39.0-53.0) % APTT 39.3 H (22.0-30.0) sec POC Glucose (mg/dL) 119 H (75-99) mg/dL Creatine Kinase 6562 H* (55-170) U/L 04/04/20 04/04/20 04/04/20 Range/Units 15:35 17:51 22:05 WBC (3.8-10.6) k/uL RBC (4.30-5.90) m/uL Hgb (13.0-17.5) gm/dL Hct (39.0-53.0) % APTT 43.2 H 64.6 H (22.0-30.0) sec POC Glucose (mg/dL) 110 H (75-99) mg/dL Creatine Kinase (55-170) U/L 04/04/20 04/05/20 04/05/20 Range/Units 23:32 04:30 04:30 WBC 17.0 H (3.8-10.6) k/uL RBC 3.12 L (4.30-5.90) m/uL Hgb 9.9 L (13.0-17.5) gm/dL Hct 30.3 L (39.0-53.0) % APTT 61.3 H (22.0-30.0) sec POC Glucose (mg/dL) 129 H (75-99) mg/dL Creatine Kinase (55-170) U/L 04/05/20 Range/Units 06:02 WBC (3.8-10.6) k/uL RBC (4.30-5.90) m/uL Hgb (13.0-17.5) gm/dL Hct (39.0-53.0) % APTT (22.0-30.0) sec POC Glucose (mg/dL) 125 H (75-99) mg/dL Creatine Kinase (55-170) U/L Assessment and Plan Plan: 1 Acute hypoxic respiratory failure requiring intubation and mechanical ventilation on 03/24/2020, extubated to BiPAP on 04/02/2020, currently on 6 L high flow nasal cannula, related to acute pneumonia, titers for Francisella are negative. Sputum cultures and blood cultures are negative, Legionella urine antigen was negative. Influenza and COVID 19 PCR were negative. The exact cause for the septic shock and the hypoxic respiratory failure is not clear. The patient was clearly septic shock and multisystem organ failure. Cultures were all negative. 2 Acute septic shock requiring pressors, resolved. Currently the patient is hypertensive. Patient is currently on Lasix drip in addition to clevidipine drip for blood pressure control 3 Acute ARDS secondary to pneumonia and sepsis, improved currently on 5 L of oxygen by nasal cannula 4 Acute kidney injury suspect acute tubular necrosis from hypotension and septic shock, requiring hemodialysis and ultrafiltration 5 Acute diastolic congestive heart failure. Echocardiogram showed no evidence of LV dysfunction and no evidence of pericardial effusion 6 History of underlying coronary artery disease 7 Hypertension. Currently on clevidipine 13 mg per hour for blood pressure control and the patient is also on a combination of metoprolol 12.5 mg twice a day and Norvasc 10 mg by mouth daily 8 Multiorgan system failure secondary to sepsis and septic shock 9 Ex-smoker 10 New-onset atrial fibrillation, rate is controlled, heparin drip remains, rate is controlled 11 Acute ileus, resolved, currently has a Dobbhoff catheter for enteral feeding and nutritional support, the patient currently has a Dobbhoff catheter in place and the patient is receiving Nepro for nutritional support 12 episodes of coffee-ground emesis. None for now 13 acute rhabdomyolysis 14 anion gap metabolic acidosis with secondary hyperkalemia and the patient remains in acute kidney injury with minimal amount of urine output. Dialysis to follow. Plan: The patient will need hemodialysis today. Potassium level is elevated. We'll give him 2 A of sodium bicarbonate total of 100 mEq a day regarding his metabolic acidosis rhabdomyolysis and hyperkalemia. Repeat CPK levels. Dobbhoff tube placed for nutritional support, the patient is on Nepro Reinitiate hypertensive medications including Norvasc 10 mg and add clonidine 0.2 mg 3 times a day and wean off the Catapres History to have oral food or swallow and I will suggest keeping the Dobbhoff in place Titrate down the FiO2 as tolerated Continue current antibiotics Hold Lipitor for now especially regarding ongoing rhabdomyolysis Stop the Lasix drip as the patient's urine output is minimal at this point in time Continue to follow here in the intensive care unit Further recommendations based on his clinical status Critical care time 3>30 min Time with Patient: Greater than 30
[2020-04-05] MEDS ORDERED: SODIUM BICARB 8.4% 50 ML SYR (1 MEQ/ML) IV STA ×2 (07:12→07:14)
[2020-04-05] MEDS: IPRATROPIUM-ALBUTEROL 3 ML NEB INHALATION SCH ×4 (07:50→19:52)
[2020-04-05] MEDS: PANTOPRAZOLE 40 MG/10 ML VIAL IVP SCH (08:05)
[2020-04-05] MEDS: amLODIPine 10 MG TAB NG-TUBE SCH (08:06)
[2020-04-05] MEDS: ASPIRIN 81 MG PO SCH (08:06)
[2020-04-05] MEDS: SODIUM BICARBONATE TAB 650 MG TAB PO SCH ×2 (08:06→21:44)
[2020-04-05] MEDS: AMPICILLIN-SULBACTAM 3 GM in SODIUM CHLORIDE 0.9% 100 ML IVPB SCH (08:07)
[2020-04-05] MEDS: cloNIDine HCL 0.2 MG TAB PO SCH ×3 (08:07→21:45)
[2020-04-05] MEDS: METOPROLOL TARTRATE 12.5 MG TAB NG-TUBE SCH (08:07)
[2020-04-05] MEDS: DOXYCYCLINE 100 MG in SODIUM CHLORIDE 0.9% 100 ML IVPB SCH ×2 (08:52→21:44)
--- NOTE | 2020-04-05 10:35 | PN ---
PROGRESS NOTE Yvon is a 70-year-old gentleman I am seeing for the first time in the ICU due to history of coronary artery disease, hypertension, who presented to hospital with septic shock that we are following because of atrial fibrillation. This morning patient remains in atrial fibrillation with a heart rate of 75 beats per minute. Blood pressure is 146/50. Respiratory rate is 24. Chest exam reveals diminished air entry at the bases. Heart exam reveals first and second heart sounds, irregular rhythm and a systolic murmur at the left lower sternal border. Abdomen is soft. Examination of extremities reveals mild edema. Peripheral pulses are felt. LABS: Labs show that the white cell count is 17, hemoglobin is 9.9. His potassium is 6, BUN is 137, creatinine is 6.4. ASSESSMENT: 1. Permanent atrial fibrillation with controlled ventricular rate. 2. Uncontrolled hypertension. PLAN: Patient is on IV heparin, metoprolol 12.5 b.i.d., Norvasc 10 mg daily and Catapres has been started for blood pressure control. I will continue him on his current medications. MMODL / IJN: [id number] /
--- NOTE | 2020-04-05 10:58 | P.PN ---
Subjective Progress Note Date: 04/05/20 Patient was seen for a follow-up. Patient was initially seen by Dr. Dony Ceja M.D. on 04/03/2020. Please refer to his note for details. Patient has a very prolonged hospitalization, been in the hospital since 03/22/2020 admitted for chest pain, admitted first unstable angina. Patient subsequently has developed severe toxic metabolic encephalopathy due to reasons mentioned below. Patient diagnosed with septic shock, toxic metabolic encephalopathy with elevated LFTs, acute kidney injury, hyperphosphatemia, medication induced perhaps from Decadron, and episodes of hypoglycemia. Patient also has acute hypoxic respiratory failure, pneumonia, deconditioning, possible myopathy, elevated LFTs. Patient was extubated on Sunday, to 04/02/2020. Patient has been severely deconditioned. Patient has bilateral frontal twitching, which was felt not to be a seizure. EEG was performed yesterday, which revealed no epileptiform activity. Objective - Vital Signs Vital signs: Vital Signs Temp 98.2 F 04/05/20 10:21 Pulse 96 04/05/20 10:21 Resp 20 04/05/20 10:21 BP 170/90 04/05/20 10:21 Pulse Ox 95 04/05/20 10:00 Intake & Output 04/04/20 04/05/20 04/05/20 18:59 06:59 18:59 Intake Total 8038.710 3181.567 494.4 Output Total 439 36 3864 Balance 981.601 8045.567 -4725.6 Weight 105.8 kg 109.6 kg Intake: IV 182 182 144 0.9 NACL 10 110 20 Ampicillin-Sulbactam 3 gm 100 100 In Sodium Chloride 0.9% 100 ml @ 200 mls/hr IVPB Q12HR [facility] Rx#:[id number] Pressure bag 72 72 24 Intake, IV Titration 935.428 568.567 160.4 Amount ACETAMINOPHEN IV (For NPO 100 ) 1,000 mg In Empty Bag 1 bag @ 400 mls/hr IVPB ONCE ONE Rx#:[id number] Ampicillin-Sulbactam 3 gm 100 In Sodium Chloride 0.9% 100 ml @ 200 mls/hr IVPB Q12HR [facility] Rx#:[id number] Clevidipine Butyrate 25 277.133 269.067 60.4 mg In Empty Bag 1 bag @ 1 MG/HR 2 mls/hr IV .Q24H [facility] Rx#:[id number] Doxycycline 100 mg In 100 200 100 Sodium Chloride 0.9% 100 ml @ 100 mls/hr IVPB Q12HR [facility] Rx#:[id number] Furosemide 100 mg In 115.167 99.5 Sodium Chloride 0.9% 90 ml @ 10 MG/HR 10 mls/hr IV .Q10H [facility] Rx#: [id number] Heparin Sod,Pork in 0.45% 243.128 NaCl 25,000 unit In 0.45 % NaCl 1 250ml.bag @ 8 UNITS/KG/HR 8.944 mls/hr IV .Q24H [facility] Rx#: [id number] Tube Feeding 320 480 160 Other 140 90 30 Output: Urine 5 15 20 Stool 600 1200 Hemodialysis 4000 Other: Voiding Method Indwelling Catheter Indwelling Catheter ABP, PAP, CO, CI - Last Documented Arterial Blood Pressure 145/58 - Exam On examination patient is an elderly male, who is laying in the bed, encephalopathic. Patient was extubated 3 days ago. Patient opens his eyes, makes eye contact, follows minimal commands. Pupils are unequal, right is 3 mm, left 4 mm, both reacting. Patient has lenticular opacities, left more than right, which likely is the cause of anisocoria. Extraocular muscles are intact. Face is symmetric. Tongue protrudes the midline. Patient squeeze the hands equally about 2+. Patient did not begin his feet. Patient is completely areflexic. Patient is diffusely weak. Sensory could not be tested. Cerebellar functions and gait could not be tested. Patient has peripheral edema. Patient is some crackles. Abdomen is soft. No seizure-like activity noted. No facial or eye twitching noted. - Labs CBC & Chem 7: 04/06/20 04:45 04/06/20 04:45 Labs: Abnormal Lab Results - Last 24 Hours (Table) 04/04/20 04/04/20 04/04/20 Range/Units 05:10 11:32 15:35 WBC (3.8-10.6) k/uL RBC (4.30-5.90) m/uL Hgb (13.0-17.5) gm/dL Hct (39.0-53.0) % APTT 43.2 H (22.0-30.0) sec Potassium (3.5-5.1) mmol/L Carbon Dioxide (22-30) mmol/L BUN (9-20) mg/dL Creatinine (0.66-1.25) mg/dL Glucose (74-99) mg/dL POC Glucose (mg/dL) 119 H (75-99) mg/dL Calcium (8.4-10.2) mg/dL Phosphorus (2.5-4.5) mg/dL Magnesium (1.6-2.3) mg/dL AST (17-59) U/L ALT (4-49) U/L Alkaline Phosphatase (38-126) U/L Creatine Kinase 6562 H* (55-170) U/L Total Protein (6.3-8.2) g/dL Albumin (3.5-5.0) g/dL 04/04/20 04/04/20 04/04/20 Range/Units 17:51 22:05 23:32 WBC (3.8-10.6) k/uL RBC (4.30-5.90) m/uL Hgb (13.0-17.5) gm/dL Hct (39.0-53.0) % APTT 64.6 H (22.0-30.0) sec Potassium (3.5-5.1) mmol/L Carbon Dioxide (22-30) mmol/L BUN (9-20) mg/dL Creatinine (0.66-1.25) mg/dL Glucose (74-99) mg/dL POC Glucose (mg/dL) 110 H 129 H (75-99) mg/dL Calcium (8.4-10.2) mg/dL Phosphorus (2.5-4.5) mg/dL Magnesium (1.6-2.3) mg/dL AST (17-59) U/L ALT (4-49) U/L Alkaline Phosphatase (38-126) U/L Creatine Kinase (55-170) U/L Total Protein (6.3-8.2) g/dL Albumin (3.5-5.0) g/dL 04/05/20 04/05/20 04/05/20 Range/Units 04:30 04:30 04:30 WBC 17.0 H (3.8-10.6) k/uL RBC 3.12 L (4.30-5.90) m/uL Hgb 9.9 L (13.0-17.5) gm/dL Hct 30.3 L (39.0-53.0) % APTT 61.3 H (22.0-30.0) sec Potassium 6.0 H (3.5-5.1) mmol/L Carbon Dioxide 14 L (22-30) mmol/L BUN 137 H* (9-20) mg/dL Creatinine 6.48 H (0.66-1.25) mg/dL Glucose 138 H (74-99) mg/dL POC Glucose (mg/dL) (75-99) mg/dL Calcium 8.3 L (8.4-10.2) mg/dL Phosphorus 12.7 H* (2.5-4.5) mg/dL Magnesium 2.6 H (1.6-2.3) mg/dL AST 481 H (17-59) U/L ALT 198 H (4-49) U/L Alkaline Phosphatase 295 H (38-126) U/L Creatine Kinase 66256 H* (55-170) U/L Total Protein 5.9 L (6.3-8.2) g/dL Albumin 2.7 L (3.5-5.0) g/dL 04/05/20 Range/Units 06:02 WBC (3.8-10.6) k/uL RBC (4.30-5.90) m/uL Hgb (13.0-17.5) gm/dL Hct (39.0-53.0) % APTT (22.0-30.0) sec Potassium (3.5-5.1) mmol/L Carbon Dioxide (22-30) mmol/L BUN (9-20) mg/dL Creatinine (0.66-1.25) mg/dL Glucose (74-99) mg/dL POC Glucose (mg/dL) 125 H (75-99) mg/dL Calcium (8.4-10.2) mg/dL Phosphorus (2.5-4.5) mg/dL Magnesium (1.6-2.3) mg/dL AST (17-59) U/L ALT (4-49) U/L Alkaline Phosphatase (38-126) U/L Creatine Kinase (55-170) U/L Total Protein (6.3-8.2) g/dL Albumin (3.5-5.0) g/dL Assessment and Plan Assessment: * Altered mental status, likely due to toxic metabolic encephalopathy. * Acute renal failure, requiring dialysis. * Elevated hepatic enzymes * Hyperphosphatemia * Status post acute hypoxic respiratory failure, pneumonia * Rhabdomyolysis * Severe deconditioning with generalized weakness and areflexia, rule out critical illness neuropathy/myopathy. * Status post GI bleed, felt to be related to NG tube irritation. * New onset atrial fibrillation Plan: * Patient's last computed tomography scan of head from 04/03/2020 showed no acute process. * EEG was technically limited because of significant myogenic artifact. No epileptiform activity was seen. At present patient has no facial twitching, or any seizure-like activity. No indication for antiepileptic medication. * Patient has generalized deconditioning, likely from severe deconditioning from prolonged hospitalization, rule out critical illness neuropathy/myopathy. Patient's CK is worsening. * Patient has new onset atrial fibrillation, currently on aspirin and subcu heparin. Would differ anticoagulation to IM/cardiology/GI.
--- NOTE | 2020-04-05 11:00 | P.PN ---
Subjective Progress Note Date: 04/05/20 CHIEF COMPLAINT: Ileus HISTORY OF PRESENT ILLNESS: Patient is being followed for an abdominal ileus. He has fecal management system in place. He is in the hospital for pneumonia, septic shock and multiorgan failure secondary to sepsis. Patient is getting hemodialysis today. He was extubated on 04/02/2019 and is now on 6 L of oxygen. He has a Dobbhoff catheter for internal feedings and nutrition support. Patient is currently in acute rhabdomyolysis CPK elevated. Eraxis has been discontinued. Lasix drip discontinued today. He is on IV heparin for his atrial fibrillation. Patient is lethargic. Patient has fecal management system in place with liquidy stools. Did have a temp of 100.1 last night. Currently temp is 99. WBC is up at 17. Creat[place] 6[place] [address], total bili 1.1 AST 481 ALT 198 alk phos 295 potassium 6.0 phosphorus 12.7 PHYSICAL EXAM: VITAL SIGNS: Reviewed. GENERAL: Well-developed in no acute distress. HEENT: No sclera icterus. Extraocular movements grossly intact. Moist buccal mucosa. Head is atraumatic, normocephalic. ABDOMEN: Soft. Nondistended. Nontender. NEUROLOGIC: Patient is intubated. His eyes are open ASSESSMENT: 1. Ileus resolved 2. Episode of coffee ground emesis likely due to NG tube irritation, no further episodes PLAN: -Continue ICU management -Continue supportive care Physician Reefer Engineer note has been reviewed by physician. Signing provider agrees with the documented findings, assessment, and plan of care. Objective - Vital Signs Vital signs: Vital Signs Temp 98.2 F 04/05/20 10:21 Pulse 96 04/05/20 10:21 Resp 20 04/05/20 10:21 BP 170/90 04/05/20 10:21 Pulse Ox 95 04/05/20 10:00 Intake & Output 04/04/20 04/05/20 04/05/20 18:59 06:59 18:59 Intake Total 3936.226 9195.567 494.4 Output Total 696 43 9803 Balance 009.240 8225.567 -4725.6 Weight 105.8 kg 109.6 kg Intake: IV 182 182 144 0.9 NACL 10 110 20 Ampicillin-Sulbactam 3 gm 100 100 In Sodium Chloride 0.9% 100 ml @ 200 mls/hr IVPB Q12HR [facility] Rx#:[id number] Pressure bag 72 72 24 Intake, IV Titration 935.428 568.567 160.4 Amount ACETAMINOPHEN IV (For NPO 100 ) 1,000 mg In Empty Bag 1 bag @ 400 mls/hr IVPB ONCE ONE Rx#:[id number] Ampicillin-Sulbactam 3 gm 100 In Sodium Chloride 0.9% 100 ml @ 200 mls/hr IVPB Q12HR [facility] Rx#:[id number] Clevidipine Butyrate 25 277.133 269.067 60.4 mg In Empty Bag 1 bag @ 1 MG/HR 2 mls/hr IV .Q24H [facility] Rx#:[id number] Doxycycline 100 mg In 100 200 100 Sodium Chloride 0.9% 100 ml @ 100 mls/hr IVPB Q12HR [facility] Rx#:[id number] Furosemide 100 mg In 115.167 99.5 Sodium Chloride 0.9% 90 ml @ 10 MG/HR 10 mls/hr IV .Q10H [facility] Rx#: [id number] Heparin Sod,Pork in 0.45% 243.128 NaCl 25,000 unit In 0.45 % NaCl 1 250ml.bag @ 8 UNITS/KG/HR 8.944 mls/hr IV .Q24H [facility] Rx#: [id number] Tube Feeding 320 480 160 Other 140 90 30 Output: Urine 5 15 20 Stool 600 1200 Hemodialysis 4000 Other: Voiding Method Indwelling Catheter Indwelling Catheter ABP, PAP, CO, CI - Last Documented Arterial Blood Pressure 145/58 - Labs CBC & Chem 7: 04/05/20 04:30 04/05/20 04:30 Labs: Abnormal Lab Results - Last 24 Hours (Table) 04/04/20 04/04/20 04/04/20 Range/Units 05:10 11:32 15:35 WBC (3.8-10.6) k/uL RBC (4.30-5.90) m/uL Hgb (13.0-17.5) gm/dL Hct (39.0-53.0) % APTT 43.2 H (22.0-30.0) sec Potassium (3.5-5.1) mmol/L Carbon Dioxide (22-30) mmol/L BUN (9-20) mg/dL Creatinine (0.66-1.25) mg/dL Glucose (74-99) mg/dL POC Glucose (mg/dL) 119 H (75-99) mg/dL Calcium (8.4-10.2) mg/dL Phosphorus (2.5-4.5) mg/dL Magnesium (1.6-2.3) mg/dL AST (17-59) U/L ALT (4-49) U/L Alkaline Phosphatase (38-126) U/L Creatine Kinase 6562 H* (55-170) U/L Total Protein (6.3-8.2) g/dL Albumin (3.5-5.0) g/dL 04/04/20 04/04/20 04/04/20 Range/Units 17:51 22:05 23:32 WBC (3.8-10.6) k/uL RBC (4.30-5.90) m/uL Hgb (13.0-17.5) gm/dL Hct (39.0-53.0) % APTT 64.6 H (22.0-30.0) sec Potassium (3.5-5.1) mmol/L Carbon Dioxide (22-30) mmol/L BUN (9-20) mg/dL Creatinine (0.66-1.25) mg/dL Glucose (74-99) mg/dL POC Glucose (mg/dL) 110 H 129 H (75-99) mg/dL Calcium (8.4-10.2) mg/dL Phosphorus (2.5-4.5) mg/dL Magnesium (1.6-2.3) mg/dL AST (17-59) U/L ALT (4-49) U/L Alkaline Phosphatase (38-126) U/L Creatine Kinase (55-170) U/L Total Protein (6.3-8.2) g/dL Albumin (3.5-5.0) g/dL 04/05/20 04/05/20 04/05/20 Range/Units 04:30 04:30 04:30 WBC 17.0 H (3.8-10.6) k/uL RBC 3.12 L (4.30-5.90) m/uL Hgb 9.9 L (13.0-17.5) gm/dL Hct 30.3 L (39.0-53.0) % APTT 61.3 H (22.0-30.0) sec Potassium 6.0 H (3.5-5.1) mmol/L Carbon Dioxide 14 L (22-30) mmol/L BUN 137 H* (9-20) mg/dL Creatinine 6.48 H (0.66-1.25) mg/dL Glucose 138 H (74-99) mg/dL POC Glucose (mg/dL) (75-99) mg/dL Calcium 8.3 L (8.4-10.2) mg/dL Phosphorus 12.7 H* (2.5-4.5) mg/dL Magnesium 2.6 H (1.6-2.3) mg/dL AST 481 H (17-59) U/L ALT 198 H (4-49) U/L Alkaline Phosphatase 295 H (38-126) U/L Creatine Kinase 72294 H* (55-170) U/L Total Protein 5.9 L (6.3-8.2) g/dL Albumin 2.7 L (3.5-5.0) g/dL 04/05/20 Range/Units 06:02 WBC (3.8-10.6) k/uL RBC (4.30-5.90) m/uL Hgb (13.0-17.5) gm/dL Hct (39.0-53.0) % APTT (22.0-30.0) sec Potassium (3.5-5.1) mmol/L Carbon Dioxide (22-30) mmol/L BUN (9-20) mg/dL Creatinine (0.66-1.25) mg/dL Glucose (74-99) mg/dL POC Glucose (mg/dL) 125 H (75-99) mg/dL Calcium (8.4-10.2) mg/dL Phosphorus (2.5-4.5) mg/dL Magnesium (1.6-2.3) mg/dL AST (17-59) U/L ALT (4-49) U/L Alkaline Phosphatase (38-126) U/L Creatine Kinase (55-170) U/L Total Protein (6.3-8.2) g/dL Albumin (3.5-5.0) g/dL
--- NOTE | 2020-04-05 11:04 | P.PN ---
Subjective Progress Note Date: 04/05/20 No new complaints today; Saturating well on 4L NC Perm AFib with rate control Interactive on interview, follows commands High GI output, increasing WBC UOP low, turbid/dark appearing urine Objective - Vital Signs Vital signs: Vital Signs Temp 98.2 F 04/05/20 10:21 Pulse 96 04/05/20 10:21 Resp 20 04/05/20 10:21 BP 170/90 04/05/20 10:21 Pulse Ox 95 04/05/20 10:00 Intake & Output 04/04/20 04/05/20 04/05/20 18:59 06:59 18:59 Intake Total 9539.176 8518.567 494.4 Output Total 167 40 9814 Balance 837.783 6774.567 -4725.6 Weight 105.8 kg 109.6 kg Intake: IV 182 182 144 0.9 NACL 10 110 20 Ampicillin-Sulbactam 3 gm 100 100 In Sodium Chloride 0.9% 100 ml @ 200 mls/hr IVPB Q12HR ADAM Rx#:[id number] Pressure bag 72 72 24 Intake, IV Titration 935.428 568.567 160.4 Amount ACETAMINOPHEN IV (For NPO 100 ) 1,000 mg In Empty Bag 1 bag @ 400 mls/hr IVPB ONCE ONE Rx#:[id number] Ampicillin-Sulbactam 3 gm 100 In Sodium Chloride 0.9% 100 ml @ 200 mls/hr IVPB Q12HR ADAM Rx#:[id number] Clevidipine Butyrate 25 277.133 269.067 60.4 mg In Empty Bag 1 bag @ 1 MG/HR 2 mls/hr IV .Q24H ADAM Rx#:[id number] Doxycycline 100 mg In 100 200 100 Sodium Chloride 0.9% 100 ml @ 100 mls/hr IVPB Q12HR ADAM Rx#:[id number] Furosemide 100 mg In 115.167 99.5 Sodium Chloride 0.9% 90 ml @ 10 MG/HR 10 mls/hr IV .Q10H ADAM Rx#: [id number] Heparin Sod,Pork in 0.45% 243.128 NaCl 25,000 unit In 0.45 % NaCl 1 250ml.bag @ 8 UNITS/KG/HR 8.944 mls/hr IV .Q24H ADAM Rx#: [id number] Tube Feeding 320 480 160 Other 140 90 30 Output: Urine 5 15 20 Stool 600 1200 Hemodialysis 4000 Other: Voiding Method Indwelling Catheter Indwelling Catheter ABP, PAP, CO, CI - Last Documented Arterial Blood Pressure 145/58 - Exam Gen: Arousable, groggy HEENT: normocephalic, atraumatic, good hearing acuity, dry mucous membranes Resp: good air exchange, breathing comfortably with no accessory muscle use, basilar crackles CVS: good distal perfusion x 4, irregular rhythm, regular rate, no appreciable murmurs GI: soft, NTTP, ND, rectal tube : no SPT, no CVAT, eagle catheter is present MSK: Diffuse pitting edema/anasarca, no clubbing Neuro: non-focal, moving all extremities - Labs CBC & Chem 7: 04/05/20 04:30 04/05/20 04:30 Labs: Abnormal Lab Results - Last 24 Hours (Table) 04/04/20 04/04/20 04/04/20 Range/Units 05:10 11:32 15:35 WBC (3.8-10.6) k/uL RBC (4.30-5.90) m/uL Hgb (13.0-17.5) gm/dL Hct (39.0-53.0) % APTT 43.2 H (22.0-30.0) sec Potassium (3.5-5.1) mmol/L Carbon Dioxide (22-30) mmol/L BUN (9-20) mg/dL Creatinine (0.66-1.25) mg/dL Glucose (74-99) mg/dL POC Glucose (mg/dL) 119 H (75-99) mg/dL Calcium (8.4-10.2) mg/dL Phosphorus (2.5-4.5) mg/dL Magnesium (1.6-2.3) mg/dL AST (17-59) U/L ALT (4-49) U/L Alkaline Phosphatase (38-126) U/L Creatine Kinase 6562 H* (55-170) U/L Total Protein (6.3-8.2) g/dL Albumin (3.5-5.0) g/dL 04/04/20 04/04/20 04/04/20 Range/Units 17:51 22:05 23:32 WBC (3.8-10.6) k/uL RBC (4.30-5.90) m/uL Hgb (13.0-17.5) gm/dL Hct (39.0-53.0) % APTT 64.6 H (22.0-30.0) sec Potassium (3.5-5.1) mmol/L Carbon Dioxide (22-30) mmol/L BUN (9-20) mg/dL Creatinine (0.66-1.25) mg/dL Glucose (74-99) mg/dL POC Glucose (mg/dL) 110 H 129 H (75-99) mg/dL Calcium (8.4-10.2) mg/dL Phosphorus (2.5-4.5) mg/dL Magnesium (1.6-2.3) mg/dL AST (17-59) U/L ALT (4-49) U/L Alkaline Phosphatase (38-126) U/L Creatine Kinase (55-170) U/L Total Protein (6.3-8.2) g/dL Albumin (3.5-5.0) g/dL 04/05/20 04/05/20 04/05/20 Range/Units 04:30 04:30 04:30 WBC 17.0 H (3.8-10.6) k/uL RBC 3.12 L (4.30-5.90) m/uL Hgb 9.9 L (13.0-17.5) gm/dL Hct 30.3 L (39.0-53.0) % APTT 61.3 H (22.0-30.0) sec Potassium 6.0 H (3.5-5.1) mmol/L Carbon Dioxide 14 L (22-30) mmol/L BUN 137 H* (9-20) mg/dL Creatinine 6.48 H (0.66-1.25) mg/dL Glucose 138 H (74-99) mg/dL POC Glucose (mg/dL) (75-99) mg/dL Calcium 8.3 L (8.4-10.2) mg/dL Phosphorus 12.7 H* (2.5-4.5) mg/dL Magnesium 2.6 H (1.6-2.3) mg/dL AST 481 H (17-59) U/L ALT 198 H (4-49) U/L Alkaline Phosphatase 295 H (38-126) U/L Creatine Kinase 19290 H* (55-170) U/L Total Protein 5.9 L (6.3-8.2) g/dL Albumin 2.7 L (3.5-5.0) g/dL 04/05/20 Range/Units 06:02 WBC (3.8-10.6) k/uL RBC (4.30-5.90) m/uL Hgb (13.0-17.5) gm/dL Hct (39.0-53.0) % APTT (22.0-30.0) sec Potassium (3.5-5.1) mmol/L Carbon Dioxide (22-30) mmol/L BUN (9-20) mg/dL Creatinine (0.66-1.25) mg/dL Glucose (74-99) mg/dL POC Glucose (mg/dL) 125 H (75-99) mg/dL Calcium (8.4-10.2) mg/dL Phosphorus (2.5-4.5) mg/dL Magnesium (1.6-2.3) mg/dL AST (17-59) U/L ALT (4-49) U/L Alkaline Phosphatase (38-126) U/L Creatine Kinase (55-170) U/L Total Protein (6.3-8.2) g/dL Albumin (3.5-5.0) g/dL Assessment and Plan Assessment: Acute hypoxic respiratory failure, Pneumonia, ARDS - + procalcitionin - ID and Pulm recs: - Doxy, Unasyn - Eraxis d/c'd on 04/05 - pulm hygeine - Flu negative, COVID negative, sputum and blood cultures are negative, Lyme IgG and IgM negative, [place] AB negative will need repeat testing in 2 weeks - Speckled ALEX+, 1:80. - C-ANCA and P-ANCA negative, negative anti GBM - off vent 2/5 total Vent day 9 - off steroids 2/3 - on TF, swallow study pending Transaminitis, increasing -need to monitor while patient is on Eraxis -Repeat liver function daily Toxic metabolic encephalopathy, improving -Suspect secondary to prolonged ICU stay and need for multiple sedative medications -Frequent reorientation -Neurology recommendations: EEG, continue to monitor facial twitching Hypertension -Attempt to wean off Clevidipine -Start Norvasc - follow BP Debility with extreme weakness, suspected ICU induced polymyopathy -PT/OT evaluation pending -CK level elevated to 6000 --> 12536 -Supportive care CODY with secondary to ATN/Rhabdomyolysis requiring hemodialysis, hyperphosphatemia - Dialysis again on 04/05, none 04/04 - Nephrology following - On oral bicarb - Nepro - phoslo Permanent A. fib - Cardiology recommendations - On heparin gtt - Not requiring rate or rhythm controlling medications Steroid induced hyperglycemia, resolved and now with episode of hypoglycemia - levemir stopped - continue with sliding scale - follow BS - A1C 6.1, repeat in 6 months Coffee ground emesis. resolved and due to NGT irritation Sepsis, resolved Transaminitis, improving Hypomagnesemia, resolved ileus, resolved Chest pain due to pleurisy, ACS ruled out hyperkalemia Hyponatremia secondary to fluid overload, resolved Chronic: Coronary artery disease GERD Hyperlipidemia DVT prophylaxis: Heparin gtt Discussed with: nursing, Anticipated discharge: unknown Anticipated discharge place: SN[facility] VS [facility]
[2020-04-05 11:54] LABS: Glucose,Whole Blood 104 mg/dL (75-99)
--- NOTE | 2020-04-05 12:11 | EEG ---
ELECTROENCEPHALOGRAM REPORT DATE OF SERVICE: 04/04/2020 PREAMBLE: This is a 70-year-old male with altered mental status. The patient is having some facial twitching, rule out any seizure activity. EEG FINDINGS: This is a 21 channel routine EEG recording in a patient utilizing 10/20 international system with referential and bipolar montages. Background consists of well- developed, moderately well regulated, mixed frequencies of some alpha and theta activity seen in the bihemispheric region. The background seems to be slightly reactive to eye opening and closing. Photic driving response was seen with some flash frequencies. Different stages of sleep were not clearly seen. A lot of myogenic activity was seen involving the facial region during most of the study. Some superimposed right temporal slowing was also probably seen. No definitive epileptiform activity was seen. The EKG channel showed no arrhythmia. IMPRESSION: This is a technically limited EEG due to lot of movement and myogenic artifact seen in most of the study. Otherwise, the EEG shows mild background slowing, consistent with encephalopathy. Additional right temporal focal slowing was also probably seen, suggestive of underlying focal cortical neuronal dysfunction. No definitive epileptiform activity was seen. As the study was technically poor, suggest prolonged or sleep-deprived EEG if suspicion for seizures is high. Clinical correlation recommended. MMODL / IJN: [id number] / BRITTNEY
[2020-04-05] MEDS: carvediloL 12.5 MG TAB PO SCH ×2 (13:59→14:37)
[2020-04-05] MEDS: HEPARIN SOD,PORK IN 0.45% NACL 25,000 UNIT in 0.45% NACL 1 250ML.BAG IV SCH (14:41)
--- NOTE | 2020-04-05 14:47 | PN ---
PROGRESS NOTE Patient is seen for followup for acute kidney injury mostly ATN secondary to sepsis and hypotension. Patient remains oliguric and hemodialysis dependent. He has been dialyzed almost on a daily basis. The patient did not receive dialysis yesterday. This morning, however, he was noted to have significant increase in his BUN and creatinine along with hyperkalemia, severe acidosis as well and significantly elevated CK levels. Phosphorus was also as high as 12.7. There is concern for rhabdomyolysis from anidulafungin that patient was started on 04/03/2020[place] [address] from 276 on 03/24/2020. Patient is currently seen on hemodialysis. He is tolerating his treatment well. He is maintained on nasal cannula. The patient is on Cleviprex drip as blood pressure is high. We are planning for about 4 L of ultrafiltration today. PHYSICAL EXAMINATION: On examination this morning, blood pressure was 145/58, heart rate of 60 per minute. Patient is afebrile. EXAMINATION OF THE HEART: S1, S2. EXAMINATION OF THE LUNGS: Decreased breath sounds at the bases. Abdomen is soft, nontender. Examination of lower extremities shows edema 2+ bilaterally. RESORT KEEPER exam shows patient is not alert and oriented. He does respond to painful stimuli and moans. Not able to carry on a conversation. LABS: Labs from today show sodium 137, potassium 6.0, chloride 105, CO2 is 14. BUN 137, serum creatinine 6.48. [place] 12[place] [address]. ASSESSMENT: 1. Acute kidney injury, oliguric, acute tubular necrosis secondary to sepsis, hypotension, hypoperfusion, currently hemodialysis dependent. Worsening of renal function noted over the last 24-48 hours with significant increase in BUN and creatinine. This is secondary to the rhabdomyolysis. 2. Hyperkalemia associated with rhabdomyolysis. 3. Metabolic acidosis non gap secondary to worsening renal failure as well as rhabdomyolysis. 4. Hyperphosphatemia secondary to rhabdomyolysis in the setting of renal failure. 5. Rhabdomyolysis secondary to anidulafungin, currently discontinued. 6. Sepsis from severe pneumonia currently off the ventilator. PLAN: 1. Adjust the bicarb bath on dialysis for the metabolic acidosis. Repeat dialysis in a.m. Increase UF as tolerated to about 4 L. 2. Wean off Cleviprex drip and add hydralazine if blood pressure remains elevated. We could all also switch the Lopressor to Coreg. However, patient had atrial fibrillation with an rapid ventricular response. Therefore, I will continue with the Lopressor for now. The patient is also maintained on clonidine, amlodipine, along with the Lopressor. MMODL / IJN: [id number] /
[2020-04-05] MEDS: hydrALAZINE HCL 25 MG TAB PO SCH ×2 (15:11→21:45)
[2020-04-05 16:55] LABS: Glucose,Whole Blood 118 mg/dL (75-99)
[2020-04-05 17:29] LABS: Calcium 8.3 mg/dL (8.4-10.2); Potassium 4.6 mmol/L (3.5-5.1)
[2020-04-05 17:48] LABS: Glucose,Whole Blood 114 mg/dL (75-99)
[2020-04-05] MEDS: DEXTROSE 5% IN WATER 1,000 ML with SODIUM BICARB (1 MEQ/ML) 150 ML IV ONE (21:44)
--- NOTE | 2020-04-05 23:29 | PN ---
PROGRESS NOTE DATE OF SERVICE: 04/05/2020 REASON FOR FOLLOWUP: Pneumonia. INTERVAL HISTORY: The patient is currently afebrile. The patient is hemodynamically stable, currently off the pressor support. The patient was noticed to have significant elevation of his CK. Eraxis has been discontinued. The patient also has worsening diarrhea per the nursing staff, for which stool for C difficile toxin was sent, which came back negative. The patient did have a Dobbhoff for feeding. The patient was slightly awake but did not answer any questions. PHYSICAL EXAMINATION: His blood pressure is 146/71 with a pulse of 82, temperature of 98. He is 99% on 40% FiO2. General description is an elderly male lying in bed in no distress. RESPIRATORY SYSTEM: Unlabored breathing with decreased breath sounds at the base. No wheeze. HEART: S1, S2. Regular rate and rhythm. ABDOMEN: Soft. No tenderness. LABS: BUN of 76, creatinine 3.58. CK is 61,595. DIAGNOSTIC IMPRESSION AND PLAN: 1. Patient admitted to hospital with acute respiratory failure in this patient with a component of pneumonia, possibly aspiration. Sputum has been negative for any resistant pathogen. He is currently on Unasyn, as no resistant organism was grown in the culture. 2. Patient who did have elevated white count with concern for possible oropharyngeal candidiasis. The patient's white count responded to the Eraxis, which has been discontinued, with a significantly elevated CK, though not a very common adverse reaction with this medication. The patient will be monitored closely. We will continue supportive care. CHRISTOPH / PURNIMAN: [id number] /
[2020-04-05 23:55] LABS: Glucose,Whole Blood 127 mg/dL (75-99)
[2020-04-06] MEDS: INSULIN ASPART (NovoLOG) 100 UNIT/ML VIAL SQ SCH ×5 (02:59→23:54)
[2020-04-06 04:58] LABS: Basophils % (A) 0 %; Eosinophils % (A) 0 %; HCT 28.9 % (39.0-53.0); HGB 9.7 gm/dL (13.0-17.5); Lymphocytes # (A) 0.5 k/uL (1.0-4.8); Lymphocytes % (A) 4 %; MCH 31.9 pg (25.0-35.0); MCHC 33.6 g/dL (31.0-37.0); Mean Platelet Volume 10.2; Monocytes # (A) 0.4 k/uL (0-1.0); Monocytes % (A) 3 %; Neutrophils # (A) 12.1 k/uL (1.3-7.7); Neutrophils % (A) 92 %; Platelet Count 192 k/uL (150-450); RBC 3.04 m/uL (4.30-5.90); RDW 14.2 % (11.5-15.5); WBC 13.1 k/uL (3.8-10.6)
[2020-04-06] MEDS: CALCIUM ACETATE 667 MG TAB PO SCH ×3 (05:01→18:16)
[2020-04-06] MEDS: hydrALAZINE HCL 25 MG TAB PO SCH (05:01)
[2020-04-06 05:14] LABS: Albumin 2.6 g/dL (3.5-5.0); C Reactive Protein 51.7 mg/L (<10.0); Calcium 7.9 mg/dL (8.4-10.2); Potassium 5.4 mmol/L (3.5-5.1); Total Protein 5.7 g/dL (6.3-8.2)
[2020-04-06 06:20] LABS: Phosphorus 10.7 mg/dL (2.5-4.5)
[2020-04-06 06:38] LABS: Glucose,Whole Blood 119 mg/dL (75-99)
[2020-04-06] MEDS: IPRATROPIUM-ALBUTEROL 3 ML NEB INHALATION SCH ×4 (07:29→19:12)
--- NOTE | 2020-04-06 08:06 | P.PN ---
Subjective Progress Note Date: 04/06/20 70-year-old male patient, known history of coronary artery disease, known history of hypertension, came into the hospital because of septic shock. The patient was complaining of dry cough, fever and chills and diaphoresis. The patient also was expressing diffuse chest discomfort with inspiration. His initial CAT scan of the chest that was done on 03/22/2020 showed no evidence of any pulmonary embolism. No evidence of any infiltration. Minimal left basilar atelectatic change. Subsequently, he was transferred to the intensive care and he developed worsening shortness of breath and hypoxemia. He became hypotensive and was placed on a BiPAP and at a later stage division was intubated and placed on a mechanical ventilator. He ended up in ARDS. He required pressors for septic shock. His pro-calcitonin level was as high as 73. During the course of his illness, the patient was sedated, paralyzed, treated with pressors, treated with broad-spectrum antibiotics and all of the cultures were negative. There was a concern for Francisella infection as the patient was around [facility] , yet the cultures were negative and the titers for Francisella were also negative. Urine legionella antigen was also negative. Influenza screen was negative. The Covid 19 testing was also negative. During the course of his illness, the patient also developed acute kidney injury requiring dialysis. He is currently requiring dialysis per nephrology. He was subsequently extubated to a BiPAP and later on switched to 6 L of oxygen by nasal cannula. He was receiving TPN for nutritional support. A Dobbhoff catheter was inserted yesterday for enteral feeding and nutritional support and a swallow evaluation is to follow. His CPK was elevated and the patient was found to have a component of rhabdomyolysis. His antibiotic coverage includes a combination of Unasyn, doxycycline and axis. Infectious disease also on the case. Currently is in atrial fibrillation. He is maintaining his pressure without any pressors and the patient is currently on Lasix drip at 10 mg an hour. Patient is on IV heparin drip. Clevidipine drip is also being is less for tighter blood pressure control. Antihypertensive medications was initiated including Norvasc 10 mg by mouth daily. He is also on metoprolol 12.5 mg by mouth twice a day. Triple-lumen catheter in place in the right internal jugular vein. On today's evaluation, the patient is very much lethargic. He is arousable. He doesn't amount of communication. He is still on 5 L of oxygen by nasal cannula. The patient is alternating with oxygen and BiPAP at a pressure of 12/5 cm of water and FiO2 of 40%. He is going to undergo dialysis today. He remains on Lasix drip at 10 mg an hour. Urine output is no order of 25 mL a shift. He remains to have some liquidy stool medications has a fecal management system in place. No abdominal distention. He remains edematous in all 4 extremities. A Dobbhoff catheter was inserted yesterday and the patient is receiving Nepro with a goal of 40 mL an hour for enteral nutrition and dietary support. No fever. Remains on the same antibiotic coverage. CPK was noted to be elevated and there was an obvious component of rhabdomyolysis on yesterday's blood work.The blood work today also showing a pot assium level of 6.0 and the patient has acidosis and anion gap type with a serum bicarb of 14. His calcium level is 12.7. His CPK level needs to be repeated. He was an obvious rhabdomyolysis and his AST is up to 481 ALT is 198 with an alkaline phosphatase of 295. Elevation of the AST is probably related to rhabdomyolysis. He remains in atrial fibrillation with a controlled rate. 04/02/2020, the patient is awake. Overnight he was in the BiPAP and currently is on oxygen at 5 L. He remains on IV Unasyn and doxycycline. Her axis was discontinued. The active issue for now is in acute rhabdomyolysis did evolve on this patient. Based on the labs, the CBC has been progressively going up and this morning is up to 82,213. At the same time, the patient has an elevation of AST which is typical of rhabdomyolysis, the calcium level is at 7.9 potassium level is at 5.4 which is a skin related to rhabdomyolysis. Renal function continues to be impaired and the patient's BUN is at 102 and the creatinine is up to 5.04. Off TPN for now. Cardiac rhythm is atrial fibrillation with a controlled rate. He remains on clevidipine drip which was weaned off and discontinued and patient was started on a combination of Norvasc 10 mg clonidine 0.2 mg 3 times a day and hydralazine 25 mg by mouth 3 times a day. BP is under better control for now and the morning blood pressures 139/56. The patient is in atrial fibrillation. The active issue for now is his ongoing rhabdomyolysis. Objective - Vital Signs Vital signs: Vital Signs Temp 99.2 F 04/06/20 04:00 Pulse 90 04/06/20 07:30 Resp 28 H 04/06/20 07:00 BP 151/70 04/06/20 07:00 Pulse Ox 96 04/06/20 07:00 Intake & Output 04/05/20 04/06/20 04/06/20 18:59 06:59 18:59 Intake Total 0319.435 1654 116 Output Total 9720 15 10 Balance -8256.200 1251 106 Weight 105.9 kg Intake: IV 288 726 66 0.9 NACL 110 110 10 Ampicillin-Sulbactam 3 gm 100 In Sodium Chloride 0.9% 100 ml @ 200 mls/hr IVPB Q12HR ADAM Rx#:[id number] Dextrose 5% in Water 1, 450 50 000 ml @ 50 mls/hr IV . Q23H ONE with Sodium Bicarb (1 Meq/ml) 150 ml Rx#:[id number] Doxycycline 100 mg In 100 Sodium Chloride 0.9% 100 ml @ 100 mls/hr IVPB Q12HR ADAM Rx#:[id number] Pressure bag 78 66 6 Intake, IV Titration 565.800 Amount Clevidipine Butyrate 25 215.800 mg In Empty Bag 1 bag @ 1 MG/HR 2 mls/hr IV .Q24H ADAM Rx#:[id number] Doxycycline 100 mg In 100 Sodium Chloride 0.9% 100 ml @ 100 mls/hr IVPB Q12HR ADAM Rx#:[id number] Heparin Sod,Pork in 0.45% 250 NaCl 25,000 unit In 0.45 % NaCl 1 250ml.bag @ 8 UNITS/KG/HR 8.944 mls/hr IV .Q24H ADAM Rx#: [id number] Tube Feeding 520 450 50 Other 90 90 Output: Urine 20 15 10 Stool 1200 Hemodialysis 8500 Other: Voiding Method Indwelling Catheter Indwelling Catheter ABP, PAP, CO, CI - Last Documented Arterial Blood Pressure 168/64 - Exam GENERAL EXAM: Alert, extremely weak 70-year-old gentleman, on 5 L high flow nasal cannula, fairly comfortable in no apparent distress. HEAD: Normocephalic. EYES: Normal reaction of pupils, equal size. NOSE: Dobbhoff tube placed in the right nare. Clear with pink turbinates. THROAT: No erythema or exudates. NECK: No masses, no JVD. CHEST: No chest wall deformity. LUNGS: Equal air entry with scattered rhonchi bilaterally. CVS: S1 and S2 normal with no audible murmur, regular rhythm. ABDOMEN: No hepatosplenomegaly, normal bowel sounds, no guarding or rigidity. SPINE: No scoliosis or deformity SKIN: No rashes CENTRAL NERVOUS SYSTEM: No focal deficits, the patient is diminished on the diminished muscle power in all 4 extremities. Unable to raise his arms against gravity. He remains profoundly weak. Legs are also weak. Neurologically, pupils are equal and reactive to light. No facial asymmetry. EXTREMITIES: There is 1-2+ peripheral edema. No clubbing, no cyanosis. Peripheral pulses are intact. - Labs CBC & Chem 7: 04/06/20 04:45 04/06/20 04:45 Labs: Abnormal Lab Results - Last 24 Hours (Table) 04/05/20 04/05/20 04/05/20 Range/Units 04:30 11:52 16:47 WBC (3.8-10.6) k/uL RBC (4.30-5.90) m/uL Hgb (13.0-17.5) gm/dL Hct (39.0-53.0) % Neutrophils # (1.3-7.7) k/uL Lymphocytes # (1.0-4.8) k/uL APTT (22.0-30.0) sec Sodium 135 L (137-145) mmol/L Potassium (3.5-5.1) mmol/L Carbon Dioxide 17 L (22-30) mmol/L BUN 76 H (9-20) mg/dL Creatinine 6.48 H 3.58 H (0.66-1.25) mg/dL Glucose 127 H (74-99) mg/dL POC Glucose (mg/dL) 104 H (75-99) mg/dL Calcium 8.3 L (8.4-10.2) mg/dL Phosphorus (2.5-4.5) mg/dL AST (17-59) U/L ALT (4-49) U/L Alkaline Phosphatase (38-126) U/L Creatine Kinase 74314 H* 52419 H* (55-170) U/L C-Reactive Protein (<10.0) mg/L Total Protein (6.3-8.2) g/dL Albumin (3.5-5.0) g/dL 04/05/20 04/05/20 04/05/20 Range/Units 16:53 17:36 23:54 WBC (3.8-10.6) k/uL RBC (4.30-5.90) m/uL Hgb (13.0-17.5) gm/dL Hct (39.0-53.0) % Neutrophils # (1.3-7.7) k/uL Lymphocytes # (1.0-4.8) k/uL APTT (22.0-30.0) sec Sodium (137-145) mmol/L Potassium (3.5-5.1) mmol/L Carbon Dioxide (22-30) mmol/L BUN (9-20) mg/dL Creatinine (0.66-1.25) mg/dL Glucose (74-99) mg/dL POC Glucose (mg/dL) 118 H 114 H 127 H (75-99) mg/dL Calcium (8.4-10.2) mg/dL Phosphorus (2.5-4.5) mg/dL AST (17-59) U/L ALT (4-49) U/L Alkaline Phosphatase (38-126) U/L Creatine Kinase (55-170) U/L C-Reactive Protein (<10.0) mg/L Total Protein (6.3-8.2) g/dL Albumin (3.5-5.0) g/dL 04/06/20 04/06/20 04/06/20 Range/Units 04:45 04:45 04:45 WBC 13.1 H (3.8-10.6) k/uL RBC 3.04 L (4.30-5.90) m/uL Hgb 9.7 L (13.0-17.5) gm/dL Hct 28.9 L (39.0-53.0) % Neutrophils # 12.1 H (1.3-7.7) k/uL Lymphocytes # 0.5 L (1.0-4.8) k/uL APTT 56.2 H (22.0-30.0) sec Sodium 133 L (137-145) mmol/L Potassium 5.4 H (3.5-5.1) mmol/L Carbon Dioxide 19 L (22-30) mmol/L BUN 102 H* (9-20) mg/dL Creatinine 5.04 H (0.66-1.25) mg/dL Glucose 114 H (74-99) mg/dL POC Glucose (mg/dL) (75-99) mg/dL Calcium 7.9 L (8.4-10.2) mg/dL Phosphorus 10.7 H* (2.5-4.5) mg/dL AST 1238 H (17-59) U/L ALT 381 H (4-49) U/L Alkaline Phosphatase 254 H (38-126) U/L Creatine Kinase 27520 H* (55-170) U/L C-Reactive Protein 51.7 H (<10.0) mg/L Total Protein 5.7 L (6.3-8.2) g/dL Albumin 2.6 L (3.5-5.0) g/dL 04/06/20 Range/Units 06:36 WBC (3.8-10.6) k/uL RBC (4.30-5.90) m/uL Hgb (13.0-17.5) gm/dL Hct (39.0-53.0) % Neutrophils # (1.3-7.7) k/uL Lymphocytes # (1.0-4.8) k/uL APTT (22.0-30.0) sec Sodium (137-145) mmol/L Potassium (3.5-5.1) mmol/L Carbon Dioxide (22-30) mmol/L BUN (9-20) mg/dL Creatinine (0.66-1.25) mg/dL Glucose (74-99) mg/dL POC Glucose (mg/dL) 119 H (75-99) mg/dL Calcium (8.4-10.2) mg/dL Phosphorus (2.5-4.5) mg/dL AST (17-59) U/L ALT (4-49) U/L Alkaline Phosphatase (38-126) U/L Creatine Kinase (55-170) U/L C-Reactive Protein (<10.0) mg/L Total Protein (6.3-8.2) g/dL Albumin (3.5-5.0) g/dL Assessment and Plan Plan: 1 Acute hypoxic respiratory failure requiring intubation and mechanical ventilation on 03/24/2020, extubated to BiPAP on 04/02/2020, currently on 5 L high flow nasal cannula, related to acute pneumonia, titers for Francisella are negative. Sputum cultures and blood cultures are negative, Legionella urine antigen was negative. Influenza and COVID 19 PCR were negative. The exact cause for the septic shock and the hypoxic respiratory failure is not clear. The patient was clearly septic shock and multisystem organ failure. Cultures were all negative. She is still on a combination of doxycycline and 2 Acute septic shock requiring pressors, resolved. Currently the patient is hypertensive currently the patient is off the clevidipine drip 3 Acute ARDS secondary to pneumonia and sepsis, improved currently on 5 L of oxygen by nasal cannula 4 Acute kidney injury suspect acute tubular necrosis from hypotension and septic shock, requiring hemodialysis and ultrafiltration, last hemodialysis session was yesterday another session to be done today and he has a dialysis catheter in his 5 Acute diastolic congestive heart failure. Echocardiogram showed no evidence of LV dysfunction and no evidence of pericardial effusion 6 History of underlying coronary artery disease 7 Hypertension. Currently on a combination of metoprolol 12.5 mg twice a day and Norvasc 10 mg by mouth daily and clonidine 0.2 3 times a day and hydralazine 25 mg 3 times a day. 8 Multiorgan system failure secondary to sepsis and septic shock 9 Ex-smoker 10 New-onset atrial fibrillation, rate is controlled, heparin drip remains, rate is controlled 11 Acute ileus, resolved, currently has a Dobbhoff catheter for enteral feeding and nutritional support, the patient currently has a Dobbhoff catheter in place and the patient is receiving Nepro for nutritional support, and the patient's enteral feeding is running at the rate of 40 mL an hour and he is having loose liquidy bowel movements and the stool for C. diff has been negative. 12 episodes of coffee-ground emesis, recovered 13 acute rhabdomyolysis, severe currently on a bicarb infusion at the rate of 50s an hour of 150 mEq of sodium bicarbonate. Rule out drug induced rhabdomyolysis including propofol, and fluoroquinolone that the patient was receiving. Eraxis has been reported in few cases and this has been discontinued. Lipitor has also been discontinued 14 anion gap metabolic acidosis with secondary hyperkalemia and the patient remains in acute kidney injury with minimal amount of urine output. Dialysis to follow. Plan: The patient will need hemodialysis today. Monitor the CPK level and repeat level after hemodialysis Monitor electrolytes after hemodialysis Dobbhoff tube placed for nutritional support, the patient is on Nepro Reinitiate hypertensive medications including Norvasc 10 mg and add clonidine 0.2 mg 3 times a day and hydralazine 25 mg by mouth 3 times a day History to have oral food or swallow and I will suggest keeping the Dobbhoff in place Titrate down the FiO2 as tolerated Continue current antibiotics Hold Lipitor for now especially regarding ongoing rhabdomyolysis Continue to follow here in the intensive care unit Further recommendations based on his clinical status
--- NOTE | 2020-04-06 08:25 | XR ---
EXAMINATION TYPE: XR chest 1V portable DATE OF EXAM: 04/06/2020 COMPARISON: Chest x-ray 04/04/2020 HISTORY: Abnormal chest x-ray, assess lungs TECHNIQUE: Single frontal view of the chest is obtained. FINDINGS: Dobbhoff tube is in place, distal tip is not included on the exam. There is a right jugula r central venous catheter with the tip overlying the right atrium. No evident pneumothorax. Patchy bi basilar density is again seen, there is interval improved visualization of the right hemidiaphragm. C ardiac mediastinal silhouette is stable, aorta is dense. IMPRESSION: There is some interval improvement in aeration at the right lung base, right middle lobe
[2020-04-06] MEDS: amLODIPine 10 MG TAB NG-TUBE SCH (08:39)
[2020-04-06] MEDS: SODIUM BICARBONATE TAB 650 MG TAB PO SCH ×2 (08:39→21:15)
[2020-04-06] MEDS: ASPIRIN 81 MG PO SCH (08:39)
[2020-04-06] MEDS: cloNIDine HCL 0.2 MG TAB PO SCH ×3 (08:39→21:15)
--- NOTE | 2020-04-06 09:52 | PN ---
PROGRESS NOTE Yvon is a 70-year-old gentleman with history of coronary artery disease, hypertension and septic shock, who is extubated and is currently on hemodialysis. He remains in atrial fibrillation with controlled ventricular rate. The blood pressure is somewhat poorly controlled on Norvasc, Catapres, and a small dose of metoprolol. He is also on hydralazine 25 mg t.i.d. I am increasing the dose to 50 t.i.d. for more optimal blood pressure control. His CPK levels have gone up. They are 80,000 today, the exact etiology for which is unclear. The web content executive is adjusting the medications. PHYSICAL EXAMINATION: On exam, patient is alert, but not particularly communicative. Blood pressure is 155/76, respiratory rate is 28, O2 saturation is 95% on 5 L. Chest exam reveals diminished air entry bilaterally. Heart exam reveals first and second heart sounds. No gallop. Has a systolic murmur at the apex. Abdomen is soft. Examination of extremities did not reveal any edema. Peripheral pulses are felt. LABS: Labs show a hemoglobin of 9.7, platelet count is 192. Potassium is 5.4. BUN is 102, creatinine is 5. CPK is elevated at 83,000. ASSESSMENT: 1. Septic shock. 2. Atrial fibrillation with controlled ventricular rate. 3. Uncontrolled hypertension. PLAN: Patient will continue the IV heparin. Increase the dose of hydralazine. Continue rest of his medications. MMODL / IJN: [id number] /
--- NOTE | 2020-04-06 10:12 | P.PCN ---
Date of Procedure: 04/06/20 Preoperative Diagnosis: Acute hypoxic/hypercapnic respiratory failure Postoperative Diagnosis: same Procedure(s) Performed: Insertion of a triple-lumen catheter, insertion of a arterial line Anesthesia: local Surgeon: Yesica Sanchez Pathology: other Condition: critical Disposition: ICU Operative Findings: Indication: Hemodynamic monitoring/Intravenous access. A time-out was completed verifying correct patient, procedure, site, positioning, and implant(s) or special equipment if applicable. The patient was placed in a dependent position appropriate for central line placement based on the vein to be cannulated. The patient left neck was prepped and draped in sterile fashion. 1% Lidocaine was used to anesthetize the surrounding skin area. A triple lumen 9F Cordis catheter was introduced into the left internal jugular vein using Seldinger technique. The catheter was threaded smoothly over the guide wire and appropriate blood return was obtained. Each lumen of the catheter was evacuated of air and flushed with sterile saline. The catheter was then sutured in place to the skin and a sterile dressing applied. Perfusion to the extremity distal to the point of catheter insertion was checked and found to be adequate. The patient tolerated the procedure well and there were no complications. Indication: Hemodynamic monitoring. A time-out was completed verifying correct patient, procedure, site, positioning, and implant(s) or special equipment if applicable. Allens test was performed to ensure adequate perfusion. The patients left wrist was prepped and draped in sterile fashion. 1% Lidocaine was used to anesthetize the area. An 18G Arrow arterial line was introduced into the [radial/femoral] artery. The catheter was threaded over the guide wire and the needle was removed with appropriate pulsatile blood return. Blood loss was minimal. The catheter was then sutured in place to the skin and a sterile dressing applied. Perfusion to the extremity distal to the point of catheter insertion was checked and found to be adequate. The patient tolerated the procedure well and there were no complications.
[2020-04-06] MEDS: HEPARIN SOD,PORK IN 0.45% NACL 25,000 UNIT in 0.45% NACL 1 250ML.BAG IV SCH (10:58)
[2020-04-06 11:33] LABS: Glucose,Whole Blood 93 mg/dL (75-99)
--- NOTE | 2020-04-06 11:39 | P.PN ---
Subjective Progress Note Date: 04/06/20 Patient has no new complaints today, able to tell me he has no pain, no trouble breathing. Objective - Vital Signs Vital signs: Vital Signs Temp 100 F H 04/06/20 08:00 Pulse 95 04/06/20 09:00 Resp 25 H 04/06/20 09:00 BP 156/78 04/06/20 09:00 Pulse Ox 95 04/06/20 09:00 Intake & Output 04/05/20 04/06/20 04/06/20 18:59 06:59 18:59 Intake Total 3560.141 4707 358 Output Total 9720 15 10 Balance -8256.200 1251 348 Weight 105.9 kg Intake: IV 288 726 198 0.9 NACL 110 110 30 Ampicillin-Sulbactam 3 gm 100 In Sodium Chloride 0.9% 100 ml @ 200 mls/hr IVPB Q12HR [facility] Rx#:[id number] Dextrose 5% in Water 1, 450 150 000 ml @ 50 mls/hr IV . Q23H ONE with Sodium Bicarb (1 Meq/ml) 150 ml Rx#:[id number] Doxycycline 100 mg In 100 Sodium Chloride 0.9% 100 ml @ 100 mls/hr IVPB Q12HR [facility] Rx#:[id number] Pressure bag 78 66 18 Intake, IV Titration 565.800 Amount Clevidipine Butyrate 25 215.800 mg In Empty Bag 1 bag @ 1 MG/HR 2 mls/hr IV .Q24H [facility] Rx#:[id number] Doxycycline 100 mg In 100 Sodium Chloride 0.9% 100 ml @ 100 mls/hr IVPB Q12HR [facility] Rx#:[id number] Heparin Sod,Pork in 0.45% 250 NaCl 25,000 unit In 0.45 % NaCl 1 250ml.bag @ 8 UNITS/KG/HR 8.944 mls/hr IV .Q24H [facility] Rx#: [id number] Tube Feeding 520 450 130 Other 90 90 30 Output: Urine 20 15 10 Stool 1200 Hemodialysis 8500 Other: Voiding Method Indwelling Catheter Indwelling Catheter Indwelling Catheter ABP, PAP, CO, CI - Last Documented Arterial Blood Pressure 132/62 - Exam Gen: awake, alert HEENT: normocephalic, atraumatic, good hearing acuity, dry mucous membranes Resp: coarse breath sounds, equal chest expansion CVS: good distal perfusion x 4, irregular rhythm, regular rate, no appreciable murmurs GI: soft, NTTP, ND, rectal tube : no SPT, no CVAT, eagle catheter is present MSK: Diffuse pitting edema/anasarca, no clubbing Neuro: diffuse weakness, 2-/5 handgrip strength b/l, 1/5 dorsi/plantar flexion b/l - Labs CBC & Chem 7: 04/06/20 04:45 04/06/20 04:45 Labs: Abnormal Lab Results - Last 24 Hours (Table) 04/05/20 04/05/20 04/05/20 Range/Units 11:52 16:47 16:53 WBC (3.8-10.6) k/uL RBC (4.30-5.90) m/uL Hgb (13.0-17.5) gm/dL Hct (39.0-53.0) % Neutrophils # (1.3-7.7) k/uL Lymphocytes # (1.0-4.8) k/uL APTT (22.0-30.0) sec Sodium 135 L (137-145) mmol/L Potassium (3.5-5.1) mmol/L Carbon Dioxide 17 L (22-30) mmol/L BUN 76 H (9-20) mg/dL Creatinine 3.58 H (0.66-1.25) mg/dL Glucose 127 H (74-99) mg/dL POC Glucose (mg/dL) 104 H 118 H (75-99) mg/dL Calcium 8.3 L (8.4-10.2) mg/dL Phosphorus (2.5-4.5) mg/dL AST (17-59) U/L ALT (4-49) U/L Alkaline Phosphatase (38-126) U/L Creatine Kinase 45578 H* (55-170) U/L C-Reactive Protein (<10.0) mg/L Total Protein (6.3-8.2) g/dL Albumin (3.5-5.0) g/dL 04/05/20 04/05/20 04/06/20 Range/Units 17:36 23:54 04:45 WBC (3.8-10.6) k/uL RBC (4.30-5.90) m/uL Hgb (13.0-17.5) gm/dL Hct (39.0-53.0) % Neutrophils # (1.3-7.7) k/uL Lymphocytes # (1.0-4.8) k/uL APTT 56.2 H (22.0-30.0) sec Sodium (137-145) mmol/L Potassium (3.5-5.1) mmol/L Carbon Dioxide (22-30) mmol/L BUN (9-20) mg/dL Creatinine (0.66-1.25) mg/dL Glucose (74-99) mg/dL POC Glucose (mg/dL) 114 H 127 H (75-99) mg/dL Calcium (8.4-10.2) mg/dL Phosphorus (2.5-4.5) mg/dL AST (17-59) U/L ALT (4-49) U/L Alkaline Phosphatase (38-126) U/L Creatine Kinase (55-170) U/L C-Reactive Protein (<10.0) mg/L Total Protein (6.3-8.2) g/dL Albumin (3.5-5.0) g/dL 04/06/20 04/06/20 04/06/20 Range/Units 04:45 04:45 06:36 WBC 13.1 H (3.8-10.6) k/uL RBC 3.04 L (4.30-5.90) m/uL Hgb 9.7 L (13.0-17.5) gm/dL Hct 28.9 L (39.0-53.0) % Neutrophils # 12.1 H (1.3-7.7) k/uL Lymphocytes # 0.5 L (1.0-4.8) k/uL APTT (22.0-30.0) sec Sodium 133 L (137-145) mmol/L Potassium 5.4 H (3.5-5.1) mmol/L Carbon Dioxide 19 L (22-30) mmol/L BUN 102 H* (9-20) mg/dL Creatinine 5.04 H (0.66-1.25) mg/dL Glucose 114 H (74-99) mg/dL POC Glucose (mg/dL) 119 H (75-99) mg/dL Calcium 7.9 L (8.4-10.2) mg/dL Phosphorus 10.7 H* (2.5-4.5) mg/dL AST 1238 H (17-59) U/L ALT 381 H (4-49) U/L Alkaline Phosphatase 254 H (38-126) U/L Creatine Kinase 72625 H* (55-170) U/L C-Reactive Protein 51.7 H (<10.0) mg/L Total Protein 5.7 L (6.3-8.2) g/dL Albumin 2.6 L (3.5-5.0) g/dL Assessment and Plan Assessment: CODY secondary to ATN/Rhabdomyolysis requiring hemodialysis, hyperphosphatemia - Dialysis again on 04/05, none 04/04 - Nephrology following - On oral bicarb - Nepro/phoslo Rhabdomyolysis - Etiology of rhabdo is unclear - non-traumatic, non-exertional in nature. - DDx: - inflammatory (unlikely, CRP improving) vs - infection or toxin mediated (unlikely, late onset after control of septic shock) vs - drug-effect (possible: eraxis + statin during oliguric renal failure ) superimposed on immobility (probable: critical illness myopathy) - continue to trend BID - can consider obtaining CK-MB component of total CK - dialysis as above Acute hypoxic respiratory failure, Pneumonia, ARDS - + procalcitionin - ID and Pulm recs: - Doxy, Unasyn - Eraxis d/c'd on 04/05 - pulm hygeine - Flu negative, COVID negative, sputum and blood cultures are negative, Lyme IgG and IgM negative, [place] AB negative will need repeat testing in 2 weeks - Speckled ALEX+, 1:80. - C-ANCA and P-ANCA negative, negative anti GBM - off vent 2/5 total Vent day 9 - off steroids 2/3 - on TF, swallow study pending Transaminitis, increasing -need to monitor -Repeat liver function daily Toxic metabolic encephalopathy, improving -Suspect secondary to prolonged ICU stay and need for multiple sedative medications -Frequent reorientation -Neurology recommendations: EEG, continue to monitor facial twitching Hypertension -Attempt to wean off Clevidipine -Start Norvasc - follow BP Debility with extreme weakness, suspected ICU induced polymyopathy -PT/OT evaluation pending -CK level elevated to 6000 --> 12211 -Supportive care Permanent A. fib - Cardiology recommendations - On heparin gtt - Not requiring rate or rhythm controlling medications Steroid induced hyperglycemia, resolved and now with episode of hypoglycemia - levemir stopped - continue with sliding scale - follow BS - A1C 6.1, repeat in 6 months Coffee ground emesis. resolved and due to NGT irritation Sepsis, resolved Transaminitis, improving Hypomagnesemia, resolved ileus, resolved Chest pain due to pleurisy, ACS ruled out hyperkalemia Hyponatremia secondary to fluid overload, resolved Chronic: Coronary artery disease GERD Hyperlipidemia DVT prophylaxis: Heparin gtt Discussed with: nursing, Anticipated discharge: unknown Anticipated discharge place: SNF VS LTACH
[2020-04-06] MEDS: AMPICILLIN-SULBACTAM 3 GM in SODIUM CHLORIDE 0.9% 100 ML IVPB SCH (12:25)
[2020-04-06] MEDS ORDERED: SODIUM CHLORIDE 0.65% NASAL SPRAY 44 ML BTL NASAL PRN (12:52)
--- NOTE | 2020-04-06 12:54 | PN ---
PROGRESS NOTE DATE OF SERVICE: 04/06/2020 REASON FOR FOLLOWUP: Pneumonia and diarrhea. INTERVAL HISTORY: The patient is currently afebrile. The patient is hemodynamically stable not on pressor support. No worsening diarrhea has been reported by nursing staff. The patient is lethargic though did answer some simple questions and responded to his name. PHYSICAL EXAMINATION: Blood pressure is 132/78 with a pulse of 90, temperature 98.7. He is 97% on 5 L nasal cannula. General description is an elderly male lying in bed in no distress. RESPIRATORY SYSTEM: Unlabored breathing, decreased breath sounds at the bases. No wheeze. HEART: S1, S2. Regular rate and rhythm. ABDOMEN: Soft, no tenderness. LABS: Hemoglobin 9.7, white count 13.9, BUN of 102, creatinine 5.04. CK is up to 83,000. DIAGNOSTIC IMPRESSION AND PLAN: Patient admitted to the hospital with acute respiratory failure and pneumonia with concern for possible pneumonia versus aspiration. Sputum has been negative for resistant pathogen. convalescent plasma has been pending. He has received 2 weeks of doxycycline, which will be discontinued. Unasyn to continue. Will monitor his clinical course closely. Continue supportive care. MMODL / IJN: [id number] /
--- NOTE | 2020-04-06 12:59 | P.PN ---
Subjective Progress Note Date: 04/06/20 CHIEF COMPLAINT: Ileus HISTORY OF PRESENT ILLNESS: Patient is being followed for an abdominal ileus. He has fecal management system in place. Patient is stooling. He was having diarrhea and stool for C. diff is negative. He is in the hospital for pneumonia, septic shock and multiorgan failure secondary to sepsis. Patient is getting hemodialysis today. Patient did have a temp of 100 last night. His main ongoing issue is rhabdomyolysis. WBC 13.1 creatinine 5.04 CPK level 26785 AST 1238 ALT 381 PHYSICAL EXAM: VITAL SIGNS: Reviewed. GENERAL: Well-developed in no acute distress. HEENT: No sclera icterus. Extraocular movements grossly intact. Moist buccal mucosa. Head is atraumatic, normocephalic. ABDOMEN: Soft. Nondistended. Nontender. NEUROLOGIC: Lethargic. Weak ASSESSMENT: 1. Ileus resolved 2. Episode of coffee ground emesis likely due to NG tube irritation, no further episodes PLAN: -Continue ICU management -Continue supportive care Physician Explosive Operator Bomb note has been reviewed by physician. Signing provider agrees with the documented findings, assessment, and plan of care. Objective - Vital Signs Vital signs: Vital Signs Temp 98.7 F 04/06/20 12:00 Pulse 90 04/06/20 12:00 Resp 29 H 04/06/20 12:00 BP 132/78 04/06/20 12:00 Pulse Ox 97 04/06/20 12:00 Intake & Output 04/05/20 04/06/20 04/06/20 18:59 06:59 18:59 Intake Total 8744.626 5158 996 Output Total 9720 15 20 Balance -8256.200 1251 976 Weight 105.9 kg Intake: IV 288 726 366 0.9 NACL 110 110 30 Ampicillin-Sulbactam 3 gm 100 In Sodium Chloride 0.9% 100 ml @ 200 mls/hr IVPB Q12HR [facility] Rx#:[id number] Dextrose 5% in Water 1, 450 300 000 ml @ 50 mls/hr IV . Q23H ONE with Sodium Bicarb (1 Meq/ml) 150 ml Rx#:[id number] Doxycycline 100 mg In 100 Sodium Chloride 0.9% 100 ml @ 100 mls/hr IVPB Q12HR [facility] Rx#:[id number] Pressure bag 78 66 36 Intake, IV Titration 565.800 250 Amount Clevidipine Butyrate 25 215.800 mg In Empty Bag 1 bag @ 1 MG/HR 2 mls/hr IV .Q24H [facility] Rx#:[id number] Doxycycline 100 mg In 100 Sodium Chloride 0.9% 100 ml @ 100 mls/hr IVPB Q12HR [facility] Rx#:[id number] Heparin Sod,Pork in 0.45% 250 250 NaCl 25,000 unit In 0.45 % NaCl 1 250ml.bag @ 8 UNITS/KG/HR 8.944 mls/hr IV .Q24H [facility] Rx#: [id number] Tube Feeding 520 450 250 Other 90 90 130 Output: Urine 20 15 20 Stool 1200 Hemodialysis 8500 Other: Voiding Method Indwelling Catheter Indwelling Catheter Indwelling Catheter ABP, PAP, CO, CI - Last Documented Arterial Blood Pressure 138/62 - Labs CBC & Chem 7: 04/06/20 04:45 04/06/20 04:45 Labs: Abnormal Lab Results - Last 24 Hours (Table) 04/05/20 04/05/20 04/05/20 Range/Units 16:47 16:53 17:36 WBC (3.8-10.6) k/uL RBC (4.30-5.90) m/uL Hgb (13.0-17.5) gm/dL Hct (39.0-53.0) % Neutrophils # (1.3-7.7) k/uL Lymphocytes # (1.0-4.8) k/uL APTT (22.0-30.0) sec Sodium 135 L (137-145) mmol/L Potassium (3.5-5.1) mmol/L Carbon Dioxide 17 L (22-30) mmol/L BUN 76 H (9-20) mg/dL Creatinine 3.58 H (0.66-1.25) mg/dL Glucose 127 H (74-99) mg/dL POC Glucose (mg/dL) 118 H 114 H (75-99) mg/dL Calcium 8.3 L (8.4-10.2) mg/dL Phosphorus (2.5-4.5) mg/dL AST (17-59) U/L ALT (4-49) U/L Alkaline Phosphatase (38-126) U/L Creatine Kinase 60717 H* (55-170) U/L C-Reactive Protein (<10.0) mg/L Total Protein (6.3-8.2) g/dL Albumin (3.5-5.0) g/dL 04/05/20 04/06/20 04/06/20 Range/Units 23:54 04:45 04:45 WBC (3.8-10.6) k/uL RBC (4.30-5.90) m/uL Hgb (13.0-17.5) gm/dL Hct (39.0-53.0) % Neutrophils # (1.3-7.7) k/uL Lymphocytes # (1.0-4.8) k/uL APTT 56.2 H (22.0-30.0) sec Sodium 133 L (137-145) mmol/L Potassium 5.4 H (3.5-5.1) mmol/L Carbon Dioxide 19 L (22-30) mmol/L BUN 102 H* (9-20) mg/dL Creatinine 5.04 H (0.66-1.25) mg/dL Glucose 114 H (74-99) mg/dL POC Glucose (mg/dL) 127 H (75-99) mg/dL Calcium 7.9 L (8.4-10.2) mg/dL Phosphorus 10.7 H* (2.5-4.5) mg/dL AST 1238 H (17-59) U/L ALT 381 H (4-49) U/L Alkaline Phosphatase 254 H (38-126) U/L Creatine Kinase 26331 H* (55-170) U/L C-Reactive Protein 51.7 H (<10.0) mg/L Total Protein 5.7 L (6.3-8.2) g/dL Albumin 2.6 L (3.5-5.0) g/dL 04/06/20 04/06/20 Range/Units 04:45 06:36 WBC 13.1 H (3.8-10.6) k/uL RBC 3.04 L (4.30-5.90) m/uL Hgb 9.7 L (13.0-17.5) gm/dL Hct 28.9 L (39.0-53.0) % Neutrophils # 12.1 H (1.3-7.7) k/uL Lymphocytes # 0.5 L (1.0-4.8) k/uL APTT (22.0-30.0) sec Sodium (137-145) mmol/L Potassium (3.5-5.1) mmol/L Carbon Dioxide (22-30) mmol/L BUN (9-20) mg/dL Creatinine (0.66-1.25) mg/dL Glucose (74-99) mg/dL POC Glucose (mg/dL) 119 H (75-99) mg/dL Calcium (8.4-10.2) mg/dL Phosphorus (2.5-4.5) mg/dL AST (17-59) U/L ALT (4-49) U/L Alkaline Phosphatase (38-126) U/L Creatine Kinase (55-170) U/L C-Reactive Protein (<10.0) mg/L Total Protein (6.3-8.2) g/dL Albumin (3.5-5.0) g/dL
[2020-04-06 13:26] LABS: Creatine Kinase MB 56.4 ng/mL (0.0-2.4)
[2020-04-06 13:36] LABS: Troponin I 0.977 ng/mL (0.000-0.034)
[2020-04-06] MEDS ORDERED: fentaNYL (PF) 50 MCG/ML 2 ML AMP IVP PRN (14:40)
[2020-04-06] MEDS: hydrALAZINE HCL 50 MG TAB PO SCH ×2 (15:49→21:15)
--- NOTE | 2020-04-06 15:57 | PN ---
PROGRESS NOTE Patient is seen for followup for acute kidney injury, mostly ATN, ischemic and secondary to sepsis, currently hemodialysis-dependent. Patient remains oliguric. He is currently seen on dialysis. He is tolerating his treatment well. The patient developed rhabdomyolysis over the last 2 days and the CK levels continue to increase. Possible offending medications have been discontinued. This morning patient is awake. He is following commands, answers simple questions as well. Blood pressure this morning was 147/77, heart rate of 80 per minute. He is afebrile. EXAMINATION OF THE HEART: S1 and S2. EXAMINATION OF LUNGS: Decreased breath sounds at bases. ABDOMEN: Soft, non-tender. Examination of lower extremities shows edema 1+ bilaterally. TELECOMMUNICATION ENGINEER exam shows patient is moving all 4 extremities. Labs show sodium 133, potassium 5.4. CO2 is 19, chloride 102, BUN 102, serum creatinine 5.04. Phosphorus is 10.7. CK level 110,120. ASSESSMENT: 1. Acute kidney injury, acute tubular necrosis, septic and ischemic, currently oliguric and hemodialysis- dependent. Continue daily dialysis for now. 2. Rhabdomyolysis with hyperkalemia, hyperphosphatemia, metabolic acidosis, being dialyzed on a daily basis. Patient is also maintained on bicarb drip, which I will continue for now. 3. Volume overload, slowly improving. 4. Hyperphosphatemia secondary to renal failure and rhabdomyolysis. 5. Hypertension, currently improved. Patient was off of the Cleviprex drip. 6. Hyperkalemia associated with rhabdomyolysis and acute kidney injury. Expect improvement post dialysis. PLAN: Repeat hemodialysis in a.m. Continue with the bicarb drip for now. MMODL / IJN: [id number] /
[2020-04-06] MEDS ORDERED: DEXAMETHASONE SOD PHOSPHATE 4 MG/ML 1 ML VIAL IV PRN (17:46)
[2020-04-06] MEDS ORDERED: DEXAMETHASONE SOD PHOSPHATE 10 MG/ML 1 ML VIAL IV STA (17:46)
--- NOTE | 2020-04-06 17:46 | P.PN ---
Subjective Progress Note Date: 04/06/20 04/06/2020: Patient appears much better from mental status standpoint. Patient more alert and awake, following commands as below. Patient's speech somewhat incomprehensible because of dry mouth. 04/05/2020: Patient was initially seen by Dr. Dony Ceja M.D. on 04/03/2020. Please refer to his note for details. Patient has a very prolonged hospitalization, been in the hospital since 03/22/2020 admitted for chest pain, admitted first unstable angina. Patient subsequently has developed severe toxic metabolic encephalopathy due to reasons mentioned below. Patient diagnosed with septic shock, toxic metabolic encephalopathy with elevated LFTs, acute kidney injury, hyperphosphatemia, medication induced perhaps from Decadron, and episodes of hypoglycemia. Patient also has acute hypoxic respiratory failure, pneumonia, deconditioning, possible myopathy, elevated LFTs. Patient was extubated on Sunday, to 04/02/2020. Patient has been severely deconditioned. Patient has bilateral frontal twitching, which was felt not to be a seizure. EEG was performed yesterday, which revealed no epileptiform activity. Objective - Vital Signs Vital signs: Vital Signs Temp 99.5 F 04/06/20 16:00 Pulse 78 04/06/20 16:33 Resp 21 04/06/20 16:00 BP 125/70 04/06/20 16:00 Pulse Ox 95 04/06/20 16:17 Intake & Output 04/05/20 04/06/20 04/06/20 18:59 06:59 18:59 Intake Total 6453.707 6214 1540 Output Total 9720 15 20 Balance -8256.200 1251 1520 Weight 105.9 kg Intake: IV 288 726 590 0.9 NACL 110 110 30 Ampicillin-Sulbactam 3 gm 100 In Sodium Chloride 0.9% 100 ml @ 200 mls/hr IVPB Q12HR [facility] Rx#:[id number] Dextrose 5% in Water 1, 450 500 000 ml @ 50 mls/hr IV . Q23H ONE with Sodium Bicarb (1 Meq/ml) 150 ml Rx#:[id number] Doxycycline 100 mg In 100 Sodium Chloride 0.9% 100 ml @ 100 mls/hr IVPB Q12HR [facility] Rx#:[id number] Pressure bag 78 66 60 Intake, IV Titration 565.800 250 Amount Clevidipine Butyrate 25 215.800 mg In Empty Bag 1 bag @ 1 MG/HR 2 mls/hr IV .Q24H [facility] Rx#:[id number] Doxycycline 100 mg In 100 Sodium Chloride 0.9% 100 ml @ 100 mls/hr IVPB Q12HR [facility] Rx#:[id number] Heparin Sod,Pork in 0.45% 250 250 NaCl 25,000 unit In 0.45 % NaCl 1 250ml.bag @ 8 UNITS/KG/HR 8.944 mls/hr IV .Q24H [facility] Rx#: [id number] Tube Feeding 520 450 410 Other 90 90 290 Output: Urine 20 15 20 Stool 1200 Hemodialysis 8500 Other: Voiding Method Indwelling Catheter Indwelling Catheter Indwelling Catheter ABP, PAP, CO, CI - Last Documented Arterial Blood Pressure 125/49 - Exam On examination patient is an elderly male, who is laying in the bed, much more alert and awake, with clear mentation. Patient tracks with eyes, with normal extraocular muscles. Face appears symmetric. Pupils are today round and reacting to light. Patient blinks to visual threat. Patient able to squeeze hands about a auxiliary 3 bilaterally. Not able to move the biceps, triceps, deltoids, and no movement in the lower extremities. Deep tendon reflexes are absent. Peripheral edema has much improved. No seizure-like activity. Cerebellar functions could not be tested. Abdomen is soft. - Labs CBC & Chem 7: 04/06/20 04:45 04/06/20 04:45 Labs: Abnormal Lab Results - Last 24 Hours (Table) 04/05/20 04/05/20 04/05/20 Range/Units 16:47 17:36 23:54 WBC (3.8-10.6) k/uL RBC (4.30-5.90) m/uL Hgb (13.0-17.5) gm/dL Hct (39.0-53.0) % Neutrophils # (1.3-7.7) k/uL Lymphocytes # (1.0-4.8) k/uL APTT (22.0-30.0) sec Sodium 135 L (137-145) mmol/L Potassium (3.5-5.1) mmol/L Carbon Dioxide 17 L (22-30) mmol/L BUN 76 H (9-20) mg/dL Creatinine 3.58 H (0.66-1.25) mg/dL Glucose 127 H (74-99) mg/dL POC Glucose (mg/dL) 114 H 127 H (75-99) mg/dL Calcium 8.3 L (8.4-10.2) mg/dL Phosphorus (2.5-4.5) mg/dL AST (17-59) U/L ALT (4-49) U/L Alkaline Phosphatase (38-126) U/L Creatine Kinase 17524 H* (55-170) U/L CK-MB (CK-2) (0.0-2.4) ng/mL Troponin I (0.000-0.034) ng/mL C-Reactive Protein (<10.0) mg/L Total Protein (6.3-8.2) g/dL Albumin (3.5-5.0) g/dL 04/06/20 04/06/20 04/06/20 Range/Units 04:45 04:45 04:45 WBC 13.1 H (3.8-10.6) k/uL RBC 3.04 L (4.30-5.90) m/uL Hgb 9.7 L (13.0-17.5) gm/dL Hct 28.9 L (39.0-53.0) % Neutrophils # 12.1 H (1.3-7.7) k/uL Lymphocytes # 0.5 L (1.0-4.8) k/uL APTT 56.2 H (22.0-30.0) sec Sodium 133 L (137-145) mmol/L Potassium 5.4 H (3.5-5.1) mmol/L Carbon Dioxide 19 L (22-30) mmol/L BUN 102 H* (9-20) mg/dL Creatinine 5.04 H (0.66-1.25) mg/dL Glucose 114 H (74-99) mg/dL POC Glucose (mg/dL) (75-99) mg/dL Calcium 7.9 L (8.4-10.2) mg/dL Phosphorus 10.7 H* (2.5-4.5) mg/dL AST 1238 H (17-59) U/L ALT 381 H (4-49) U/L Alkaline Phosphatase 254 H (38-126) U/L Creatine Kinase 05848 H* (55-170) U/L CK-MB (CK-2) (0.0-2.4) ng/mL Troponin I (0.000-0.034) ng/mL C-Reactive Protein 51.7 H (<10.0) mg/L Total Protein 5.7 L (6.3-8.2) g/dL Albumin 2.6 L (3.5-5.0) g/dL 04/06/20 04/06/20 04/06/20 Range/Units 06:36 12:30 12:30 WBC (3.8-10.6) k/uL RBC (4.30-5.90) m/uL Hgb (13.0-17.5) gm/dL Hct (39.0-53.0) % Neutrophils # (1.3-7.7) k/uL Lymphocytes # (1.0-4.8) k/uL APTT (22.0-30.0) sec Sodium (137-145) mmol/L Potassium (3.5-5.1) mmol/L Carbon Dioxide (22-30) mmol/L BUN (9-20) mg/dL Creatinine (0.66-1.25) mg/dL Glucose (74-99) mg/dL POC Glucose (mg/dL) 119 H (75-99) mg/dL Calcium (8.4-10.2) mg/dL Phosphorus (2.5-4.5) mg/dL AST (17-59) U/L ALT (4-49) U/L Alkaline Phosphatase (38-126) U/L Creatine Kinase 983730 H* (55-170) U/L CK-MB (CK-2) 56.4 H (0.0-2.4) ng/mL Troponin I 0.977 H* (0.000-0.034) ng/mL C-Reactive Protein (<10.0) mg/L Total Protein (6.3-8.2) g/dL Albumin (3.5-5.0) g/dL Assessment and Plan Assessment: * Altered mental status, likely due to toxic metabolic encephalopathy. * Acute renal failure, requiring dialysis. * Elevated hepatic enzymes * Rhabdomyolysis, getting worse. CK has climbed up to 110,120. 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 Diffuse areflexia, rule out critical illness neuropathy/myopathy. * Status post GI bleed, felt to be related to NG tube irritation. * New onset atrial fibrillation Plan: * Patient's quadriparesis is likely due to severe rhabdomyolysis, but the cause of rhabdomyolysis is uncertain. Recommend muscle biopsy of biceps and/or quadriceps muscle (anyone side) for further evaluation of severe myopathy. Need to rule out if there is an inflammation component, or toxic myofibrillar necrosis. We will check aldolase level. * We will start patient on dexamethasone 10 mg stat and then 6 mg IV every 6 hours. * Discussed with patient's primary physician as well as Dr. Sanchez , and agreed with the above management. We will have surgery follow-up for initiating muscle biopsy. * Continue gastric ulcer prophylaxis. * Patient's ALEX is +80 with speckled pattern, C-ANCA, P-ANCA are negative, double-stranded DNA, glomerular basement membrane antibodies negative. Lyme titer hepatitis panel negative. B12 is normal 930, RBC folate 728 normal. TSH normal. Ammonia normal. * Patient's last computed tomography scan of head from 04/03/2020 showed no acute process. * EEG was technically limited because of significant myogenic artifact. No epileptiform activity was seen. * Patient has new onset atrial fibrillation, currently on aspirin and subcu heparin. Would differ anticoagulation to IM/cardiology/GI. * Discussed with patient's sister and significant other, updated about current progress and plans. Time with Patient: Greater than 30
[2020-04-06 17:54] LABS: Glucose,Whole Blood 116 mg/dL (75-99)
[2020-04-06] MEDS: DEXTROSE 5% IN WATER 1,000 ML with SODIUM BICARB (1 MEQ/ML) 150 ML IV ONE (19:06)
[2020-04-06 23:34] LABS: Glucose,Whole Blood 152 mg/dL (75-99)
[2020-04-07 04:25] LABS: Basophils % (A) 0 %; Eosinophils % (A) 0 %; HCT 27.5 % (39.0-53.0); HGB 9.1 gm/dL (13.0-17.5); Lymphocytes # (A) 0.4 k/uL (1.0-4.8); Lymphocytes % (A) 3 %; MCH 31.5 pg (25.0-35.0); MCHC 33.1 g/dL (31.0-37.0); MCV 95.4 fL (80.0-100.0); Monocytes # (A) 0.2 k/uL (0-1.0); Monocytes % (A) 2 %; Neutrophils # (A) 13.4 k/uL (1.3-7.7); Neutrophils % (A) 95 %; Platelet Count 189 k/uL (150-450); RBC 2.88 m/uL (4.30-5.90); RDW 14.3 % (11.5-15.5); WBC 14.1 k/uL (3.8-10.6)
[2020-04-07 05:05] LABS: Albumin 2.6 g/dL (3.5-5.0); Calcium 8.1 mg/dL (8.4-10.2); Total Bilirubin 0.9 mg/dL (0.2-1.3); Total Protein 5.7 g/dL (6.3-8.2)
[2020-04-07 05:25] LABS: Phosphorus 10.5 mg/dL (2.5-4.5)
[2020-04-07 05:28] LABS: Potassium 6.1 mmol/L (3.5-5.1)
[2020-04-07] MEDS: HEPARIN SOD,PORK IN 0.45% NACL 25,000 UNIT in 0.45% NACL 1 250ML.BAG IV SCH (06:03)
[2020-04-07 06:09] LABS: Glucose,Whole Blood 127 mg/dL (75-99)
[2020-04-07] MEDS: INSULIN ASPART (NovoLOG) 100 UNIT/ML VIAL SQ SCH ×3 (06:20→19:06)
[2020-04-07] MEDS: CALCIUM ACETATE 667 MG TAB PO SCH ×3 (06:21→18:23)
[2020-04-07] MEDS: IPRATROPIUM-ALBUTEROL 3 ML NEB INHALATION SCH ×6 (07:21→20:57)
--- NOTE | 2020-04-07 08:17 | P.PN ---
Subjective Progress Note Date: 04/07/20 70-year-old male patient, known history of coronary artery disease, known history of hypertension, came into the hospital because of septic shock. The patient was complaining of dry cough, fever and chills and diaphoresis. The patient also was expressing diffuse chest discomfort with inspiration. His initial CAT scan of the chest that was done on 03/22/2020 showed no evidence of any pulmonary embolism. No evidence of any infiltration. Minimal left basilar atelectatic change. Subsequently, he was transferred to the intensive care and he developed worsening shortness of breath and hypoxemia. He became hypotensive and was placed on a BiPAP and at a later stage division was intubated and placed on a mechanical ventilator. He ended up in ARDS. He required pressors for septic shock. His pro-calcitonin level was as high as 73. During the course of his illness, the patient was sedated, paralyzed, treated with pressors, treated with broad-spectrum antibiotics and all of the cultures were negative. There was a concern for Francisella infection as the patient was around [facility] , yet the cultures were negative and the titers for Francisella were also negative. Urine legionella antigen was also negative. Influenza screen was negative. The Covid 19 testing was also negative. During the course of his illness, the patient also developed acute kidney injury requiring dialysis. He is currently requiring dialysis per nephrology. He was subsequently extubated to a BiPAP and later on switched to 6 L of oxygen by nasal cannula. He was receiving TPN for nutritional support. A Dobbhoff catheter was inserted yesterday for enteral feeding and nutritional support and a swallow evaluation is to follow. His CPK was elevated and the patient was found to have a component of rhabdomyolysis. His antibiotic coverage includes a combination of Unasyn, doxycycline and axis. Infectious disease also on the case. Currently is in atrial fibrillation. He is maintaining his pressure without any pressors and the patient is currently on Lasix drip at 10 mg an hour. Patient is on IV heparin drip. Clevidipine drip is also being is less for tighter blood pressure control. Antihypertensive medications was initiated including Norvasc 10 mg by mouth daily. He is also on metoprolol 12.5 mg by mouth twice a day. Triple-lumen catheter in place in the right internal jugular vein. On today's evaluation, the patient is very much lethargic. He is arousable. He doesn't amount of communication. He is still on 5 L of oxygen by nasal cannula. The patient is alternating with oxygen and BiPAP at a pressure of 12/5 cm of water and FiO2 of 40%. He is going to undergo dialysis today. He remains on Lasix drip at 10 mg an hour. Urine output is no order of 25 mL a shift. He remains to have some liquidy stool medications has a fecal management system in place. No abdominal distention. He remains edematous in all 4 extremities. A Dobbhoff catheter was inserted yesterday and the patient is receiving Nepro with a goal of 40 mL an hour for enteral nutrition and dietary support. No fever. Remains on the same antibiotic coverage. CPK was noted to be elevated and there was an obvious component of rhabdomyolysis on yesterday's blood work.The blood work today also showing a pot assium level of 6.0 and the patient has acidosis and anion gap type with a serum bicarb of 14. His calcium level is 12.7. His CPK level needs to be repeated. He was an obvious rhabdomyolysis and his AST is up to 481 ALT is 198 with an alkaline phosphatase of 295. Elevation of the AST is probably related to rhabdomyolysis. He remains in atrial fibrillation with a controlled rate. 04/06/2020, the patient is awake. Overnight he was in the BiPAP and currently is on oxygen at 5 L. He remains on IV Unasyn and doxycycline. Her axis was discontinued. The active issue for now is in acute rhabdomyolysis did evolve on this patient. Based on the labs, the CBC has been progressively going up and this morning is up to 82,213. At the same time, the patient has an elevation of AST which is typical of rhabdomyolysis, the calcium level is at 7.9 potassium level is at 5.4 which is a skin related to rhabdomyolysis. Renal function continues to be impaired and the patient's BUN is at 102 and the creatinine is up to 5.04. Off TPN for now. Cardiac rhythm is atrial fibrillation with a controlled rate. He remains on clevidipine drip which was weaned off and discontinued and patient was started on a combination of Norvasc 10 mg clonidine 0.2 mg 3 times a day and hydralazine 25 mg by mouth 3 times a day. BP is under better control for now and the morning blood pressures 139/56. The patient is in atrial fibrillation. The active issue for now is his ongoing rhabdomyolysis. 04/07/2020, the patient is on BiPAP at a pressure of 12/5 cm of water with an FiO2 of 40%. We are putting him in a BiPAP overnight and during the day he is on oxygen at 5 L per minute nasal cannula. His chest x-ray from today shows no major abnormalities. He is profoundly weak. The active issue remains his on going severe rhabdomyolysis. Monitoring the CPK showed that his CPK as above 110,000. His potassium continues to rise back up to 6.1 and his serum bicarb is at 23 and the patient's SGOT is 1362. Creatinine is at 3.9 and a BUN is at 98. The patient received hemodialysis yesterday. Due to ongoing concern of his of rhabdomyolysis, we haven't made recommendations for this patient to be seen by neurology. A muscle biopsy is in progress. Neurologist also recommended Decadron at 4 mg every 6 hours IV and this medication was also started on this patient. A general surgery consultation was requested regarding muscle biopsy. I think this is rhabdomyolysis rather than inflammatory myositis. H emodynamically, the patient is on no pressors. The patient is maintaining his own blood pressure. IV fluid is running in the form of normal saline at the rate of 20 mL an hour. He is not eating. He is on tube feeds through his Dobbhoff and he is receiving Nepro. And her tube feeds is currently at goal at 40 mL an hour of Nepro. No urine output for now. He is profoundly weak and is unable to raise his arms against gravity. He has a very weak cough. His blood pressures under better control and the patient is currently off Cleviprex. Maze in atrial fibrillation for now. His last bout of hemodialysis was yesterday and he is scheduled to have another session of hemodialysis today. He remains on the same antibiotic coverage includes IV Unasyn and is currently off doxycycline also. Objective - Vital Signs Vital signs: Vital Signs Temp 99 F 04/07/20 04:00 Pulse 80 04/07/20 07:33 Resp 19 04/07/20 07:33 BP 135/69 04/07/20 07:00 Pulse Ox 99 04/07/20 07:21 Intake & Output 04/06/20 04/07/20 04/07/20 18:59 06:59 18:59 Intake Total 1782 1072 6 Output Total 20 5 5 Balance 1762 1067 1 Weight 104.6 kg Intake: IV 702 322 6 0.9 NACL 30 Dextrose 5% in Water 1, 600 250 000 ml @ 50 mls/hr IV . Q23H ONE with Sodium Bicarb (1 Meq/ml) 150 ml Rx#:[id number] Pressure bag 72 72 6 Intake, IV Titration 250 250 Amount Heparin Sod,Pork in 0.45% 250 250 NaCl 25,000 unit In 0.45 % NaCl 1 250ml.bag @ 8 UNITS/KG/HR 8.944 mls/hr IV .Q24H [facility] Rx#: [id number] Tube Feeding 490 320 Other 340 180 Output: Urine 20 5 5 Other: Voiding Method Indwelling Catheter Indwelling Catheter ABP, PAP, CO, CI - Last Documented Arterial Blood Pressure 125/50 - Exam GENERAL EXAM: Alert, extremely weak 70-year-old gentleman, on 5 L high flow na regis cannula, fairly comfortable in no apparent distress. HEAD: Normocephalic. EYES: Normal reaction of pupils, equal size. NOSE: Dobbhoff tube placed in the right nare. Clear with pink turbinates. THROAT: No erythema or exudates. NECK: No masses, no JVD. CHEST: No chest wall deformity. LUNGS: Equal air entry with scattered rhonchi bilaterally. CVS: S1 and S2 normal with no audible murmur, regular rhythm. ABDOMEN: No hepatosplenomegaly, normal bowel sounds, no guarding or rigidity. SPINE: No scoliosis or deformity SKIN: No rashes CENTRAL NERVOUS SYSTEM: No focal deficits, the patient is diminished on the diminished muscle power in all 4 extremities. Unable to raise his arms against gravity. He remains profoundly weak. Legs are also weak. Neurologically, pupils are equal and reactive to light. No facial asymmetry. EXTREMITIES: There is 1-2+ peripheral edema. No clubbing, no cyanosis. Peripheral pulses are intact. - Labs CBC & Chem 7: 04/07/20 04:00 04/07/20 04:00 Labs: Abnormal Lab Results - Last 24 Hours (Table) 04/06/20 04/06/20 04/06/20 Range/Units 12:30 12:30 17:53 WBC (3.8-10.6) k/uL RBC (4.30-5.90) m/uL Hgb (13.0-17.5) gm/dL Hct (39.0-53.0) % Neutrophils # (1.3-7.7) k/uL Lymphocytes # (1.0-4.8) k/uL APTT (22.0-30.0) sec Sodium (137-145) mmol/L Potassium (3.5-5.1) mmol/L BUN (9-20) mg/dL Creatinine (0.66-1.25) mg/dL Glucose (74-99) mg/dL POC Glucose (mg/dL) 116 H (75-99) mg/dL Calcium (8.4-10.2) mg/dL Phosphorus (2.5-4.5) mg/dL AST (17-59) U/L ALT (4-49) U/L Alkaline Phosphatase (38-126) U/L Creatine Kinase 837246 H* (55-170) U/L CK-MB (CK-2) 56.4 H (0.0-2.4) ng/mL Troponin I 0.977 H* (0.000-0.034) ng/mL Total Protein (6.3-8.2) g/dL Albumin (3.5-5.0) g/dL 04/06/20 04/07/20 04/07/20 Range/Units 23:31 04:00 04:00 WBC 14.1 H (3.8-10.6) k/uL RBC 2.88 L (4.30-5.90) m/uL Hgb 9.1 L (13.0-17.5) gm/dL Hct 27.5 L (39.0-53.0) % Neutrophils # 13.4 H (1.3-7.7) k/uL Lymphocytes # 0.4 L (1.0-4.8) k/uL APTT 48.8 H (22.0-30.0) sec Sodium (137-145) mmol/L Potassium (3.5-5.1) mmol/L BUN (9-20) mg/dL Creatinine (0.66-1.25) mg/dL Glucose (74-99) mg/dL POC Glucose (mg/dL) 152 H (75-99) mg/dL Calcium (8.4-10.2) mg/dL Phosphorus (2.5-4.5) mg/dL AST (17-59) U/L ALT (4-49) U/L Alkaline Phosphatase (38-126) U/L Creatine Kinase (55-170) U/L CK-MB (CK-2) (0.0-2.4) ng/mL Troponin I (0.000-0.034) ng/mL Total Protein (6.3-8.2) g/dL Albumin (3.5-5.0) g/dL 04/07/20 04/07/20 Range/Units 04:00 06:08 WBC (3.8-10.6) k/uL RBC (4.30-5.90) m/uL Hgb (13.0-17.5) gm/dL Hct (39.0-53.0) % Neutrophils # (1.3-7.7) k/uL Lymphocytes # (1.0-4.8) k/uL APTT (22.0-30.0) sec Sodium 135 L (137-145) mmol/L Potassium 6.1 H* (3.5-5.1) mmol/L BUN 98 H (9-20) mg/dL Creatinine 3.98 H (0.66-1.25) mg/dL Glucose 142 H (74-99) mg/dL POC Glucose (mg/dL) 127 H (75-99) mg/dL Calcium 8.1 L (8.4-10.2) mg/dL Phosphorus 10.5 H* (2.5-4.5) mg/dL AST 1362 H (17-59) U/L ALT 495 H (4-49) U/L Alkaline Phosphatase 234 H (38-126) U/L Creatine Kinase (55-170) U/L CK-MB (CK-2) (0.0-2.4) ng/mL Troponin I (0.000-0.034) ng/mL Total Protein 5.7 L (6.3-8.2) g/dL Albumin 2.6 L (3.5-5.0) g/dL Microbiology - Last 24 Hours (Table) 04/06/20 01:19 Blood Culture - Preliminary Blood No Growth after 24 hours Assessment and Plan Plan: 1 Acute hypoxic respiratory failure requiring intubation and mechanical ventilation on 03/24/2020, extubated to BiPAP on 04/02/2020, currently on 5 L high flow nasal cannula, related to acute pneumonia, titers for Francisella are negative. Sputum cultures and blood cultures are negative, Legionella urine antigen was negative. Influenza and COVID 19 PCR were negative. The exact cause for the septic shock and the hypoxic respiratory failure is not clear. The patient was clearly septic shock and multisystem organ failure. Cultures were all negative. She is still on was sent and the patient was taken off doxycycline after completing the course. He remains on 5 L of oxygen by nasal cannula utilizing BiPAP overnight. His chest x-ray is not showing any consolidation or airspace disease. Nevertheless, the patient is profoundly weak and he continues to have respiratory insufficiency and a weak cough which is further complicating his overall respiratory status. 2 Acute septic shock requiring pressors, resolved. 3 Acute ARDS secondary to pneumonia and sepsis, improved 4 Acute kidney injury suspect acute tubular necrosis from hypotension and septic shock, requiring hemodialysis and ultrafiltration, and the patient is having daily dialysis based on his ongoing rhabdomyolysis 5 Acute diastolic congestive heart failure. Echocardiogram showed no evidence of LV dysfunction and no evidence of pericardial effusion 6 History of underlying coronary artery disease 7 Hypertension. Currently on a combination of metoprolol 12.5 mg twice a day and Norvasc 10 mg by mouth daily and clonidine 0.2 3 times a day and hydralazine 25 mg 3 times a day. 8 Multiorgan system failure secondary to sepsis and septic shock 9 Ex-smoker 10 New-onset atrial fibrillation, rate is controlled, heparin drip remains, rate is controlled 11 Acute ileus, resolved, currently has a Dobbhoff catheter for enteral feeding and nutritional support, the patient currently has a Dobbhoff catheter in place and the patient is receiving Nepro for nutritional support, and the patient's enteral feeding is running at the rate of 40 mL an hour and he is having loose liquidy bowel movements and the stool for C. diff has been negative. Patient has a fecal management system in place and the patient is producing adequate amount of bowel movement activity 12 episodes of coffee-ground emesis, recovered 13 acute rhabdomyolysis, severe with marketed elevation of the CPK level. Exact cause is not clear. Her anemia has been reported to cause severe rhabdomyolysis with microabscesses within the muscles. Note that the Francisella to uremia antibodies were negative and this was never cultured. This may be a difficult diagnosis. We'll repeat the titers and will ask general surgery to obtain a muscle biopsy for us today. Meanwhile, the patient was started also on Decadron by neurology. 14 anion gap metabolic acidosis , recovered 15 acute hyperkalemia secondary to rhabdomyolysis and acute kidney injury. Plan: The patient will need hemodialysis today. Monitor the CPK level Monitor electrolytes after hemodialysis Dobbhoff tube placed for nutritional support, the patient is on Nepro Muscle biopsy today by general surgery. Neurology input regarding the rhabdomyolysis was appreciated. Check aldolase level Check another ferritin for Francisella Continue current antibiotics with Unasyn No medications is being given cause rhabdomyolysis for now Continued IV heparin until the patient is called to surgery and we'll stop it around 90 minutes prior to his muscle biopsy Discussed the findings of the Family condition remains critical Continue to follow here in the intensive care unit Further recommendations based on his clinical status Critically care evaluation, more than 30 minutes. Time with Patient: Greater than 30
--- NOTE | 2020-04-07 08:18 | XR ---
EXAMINATION TYPE: XR chest 1V portable DATE OF EXAM: 04/07/2020 COMPARISON: Chest 04/06/2020 HISTORY: Abnormal chest x-ray, assess lungs TECHNIQUE: Single frontal view of the chest is obtained. FINDINGS: Right jugular central venous catheter shows the tip in the right atrium. Dobbhoff tube is present, distal tip not included on exam. Bibasilar increased attenuation again noted within the lung s. No evident pneumothorax. Cardiac mediastinal silhouette is stable. Patient is rotated. Right-sided PICC line shows the distal tip near the cavoatrial junction level. IMPRESSION: Findings similar to prior exam, correlate for pneumonia versus basilar atelectasis or ed cyndee.
[2020-04-07] MEDS: SODIUM BICARBONATE TAB 650 MG TAB PO SCH ×2 (08:54→21:26)
[2020-04-07] MEDS: amLODIPine 10 MG TAB NG-TUBE SCH (08:55)
[2020-04-07] MEDS: hydrALAZINE HCL 50 MG TAB PO SCH ×3 (08:55→21:26)
[2020-04-07] MEDS: AMPICILLIN-SULBACTAM 3 GM in SODIUM CHLORIDE 0.9% 100 ML IVPB SCH (08:55)
[2020-04-07] MEDS: ASPIRIN 81 MG PO SCH (08:55)
[2020-04-07] MEDS: cloNIDine HCL 0.2 MG TAB PO SCH ×4 (09:00→21:26)
[2020-04-07] MEDS ORDERED: DEXTROSE 50% SYRINGE 50 ML IVP STA (09:34)
[2020-04-07] MEDS ORDERED: INSULIN REGULAR 100 UNIT/ML VIAL IV ONE (09:35)
[2020-04-07] MEDS ORDERED: SODIUM BICARB 8.4% 50 ML SYR (1 MEQ/ML) IV STA (09:35)
[2020-04-07 10:00] VITALS: BMI 35.0
--- NOTE | 2020-04-07 11:36 | PN ---
PROGRESS NOTE Yvon is a 70-year-old gentleman that we are following in the ICU for atrial fibrillation. This morning, he is more alert and he is responding to questions. Still has an NG tube in. Blood pressure is better controlled with the adjustments I made yesterday. PHYSICAL EXAMINATION: On exam, heart rate is 80 beats per minute, irregular. Blood pressure is 148/67. Respiratory rate is 18. Chest exam reveals diminished air entry at the bases. Heart exam reveals first and second heart sounds. No gallop. Examination of extremities did not reveal mild edema. Peripheral pulses are felt. LABS: Labs show a hemoglobin of 9.1. Potassium is 6.1. BUN is 98, creatinine is 3.98. ASSESSMENT: 1. Permanent atrial fibrillation with controlled ventricular rate. 2. Hypertension. 3. End-stage renal disease on hemodialysis. 4. Elevated CPK is of unclear etiology. PLAN: I will continue the patient on current medications including IV heparin. MMODL / IJN: [id number] /
--- NOTE | 2020-04-07 11:44 | P.PN ---
Subjective Progress Note Date: 04/07/20 CHIEF COMPLAINT: Ileus HISTORY OF PRESENT ILLNESS: Patient is being followed for an abdominal ileus. He has fecal management system in place. Patient is stooling. He was having diarrhea and stool for C. diff is negative. He is in the hospital for pneumonia, septic shock and multiorgan failure secondary to sepsis. Patient's CK levels are extremely elevated. Dr. Limon initially was going to proceed with a left quadricep biopsy today but this has been canceled due to patient's hyperkalemia. Patient has been given medication to reverse the hyperkalemia plus he is having hemodialysis. Repeat potassium level has been ordered. Patient has been evaluated by neurology and they have added Decadron. Afebrile WBC 14.1 hemoglobin 9.1 potassium 6.1 creatinine 3.98 ALT 495 AST 1362 alk phos 234 [id number] PHYSICAL EXAM: VITAL SIGNS: Reviewed. GENERAL: Well-developed in no acute distress. HEENT: No sclera icterus. Extraocular movements grossly intact. Moist buccal mucosa. Head is atraumatic, normocephalic. ABDOMEN: Soft. Nondistended. Nontender. NEUROLOGIC: Lethargic. Weak ASSESSMENT: 1. Rhabdomyolysis 2. Ileus resolved 3. Episode of coffee ground emesis likely due to NG tube irritation, no further episodes 4. Hyperkalemia PLAN: -Left quadricep biopsy cancelled for today due to hyperkalemia -Continue ICU management -Continue supportive care Physician Nurse Esthetician note has been reviewed by physician. Signing provider agrees with the documented findings, assessment, and plan of care. Objective - Vital Signs Vital signs: Vital Signs Temp 99 F 04/07/20 04:00 Pulse 92 04/07/20 11:34 Resp 29 H 04/07/20 11:34 BP 136/74 04/07/20 10:00 Pulse Ox 95 04/07/20 10:00 Intake & Output 04/06/20 04/07/20 04/07/20 18:59 06:59 18:59 Intake Total 1782 1072 110 Output Total 20 5 5 Balance 1762 1067 105 Weight 104.6 kg 104.6 kg Intake: IV 702 322 110 0.9 NACL 30 80 Dextrose 5% in Water 1, 600 250 000 ml @ 50 mls/hr IV . Q23H ONE with Sodium Bicarb (1 Meq/ml) 150 ml Rx#:[id number] Pressure bag 72 72 30 Intake, IV Titration 250 250 Amount Heparin Sod,Pork in 0.45% 250 250 NaCl 25,000 unit In 0.45 % NaCl 1 250ml.bag @ 8 UNITS/KG/HR 8.944 mls/hr IV .Q24H [facility] Rx#: [id number] Tube Feeding 490 320 0 Other 340 180 Output: Urine 20 5 5 Other: Voiding Method Indwelling Catheter Indwelling Catheter ABP, PAP, CO, CI - Last Documented Arterial Blood Pressure 137/57 - Labs CBC & Chem 7: 04/07/20 04:00 04/07/20 04:00 Labs: Abnormal Lab Results - Last 24 Hours (Table) 04/06/20 04/06/20 04/06/20 Range/Units 12:30 12:30 17:53 WBC (3.8-10.6) k/uL RBC (4.30-5.90) m/uL Hgb (13.0-17.5) gm/dL Hct (39.0-53.0) % Neutrophils # (1.3-7.7) k/uL Lymphocytes # (1.0-4.8) k/uL APTT (22.0-30.0) sec Sodium (137-145) mmol/L Potassium (3.5-5.1) mmol/L BUN (9-20) mg/dL Creatinine (0.66-1.25) mg/dL Glucose (74-99) mg/dL POC Glucose (mg/dL) 116 H (75-99) mg/dL Calcium (8.4-10.2) mg/dL Phosphorus (2.5-4.5) mg/dL AST (17-59) U/L ALT (4-49) U/L Alkaline Phosphatase (38-126) U/L Creatine Kinase 991007 H* (55-170) U/L CK-MB (CK-2) 56.4 H (0.0-2.4) ng/mL Troponin I 0.977 H* (0.000-0.034) ng/mL Total Protein (6.3-8.2) g/dL Albumin (3.5-5.0) g/dL 04/06/20 04/07/20 04/07/20 Range/Units 23:31 04:00 04:00 WBC 14.1 H (3.8-10.6) k/uL RBC 2.88 L (4.30-5.90) m/uL Hgb 9.1 L (13.0-17.5) gm/dL Hct 27.5 L (39.0-53.0) % Neutrophils # 13.4 H (1.3-7.7) k/uL Lymphocytes # 0.4 L (1.0-4.8) k/uL APTT 48.8 H (22.0-30.0) sec Sodium (137-145) mmol/L Potassium (3.5-5.1) mmol/L BUN (9-20) mg/dL Creatinine (0.66-1.25) mg/dL Glucose (74-99) mg/dL POC Glucose (mg/dL) 152 H (75-99) mg/dL Calcium (8.4-10.2) mg/dL Phosphorus (2.5-4.5) mg/dL AST (17-59) U/L ALT (4-49) U/L Alkaline Phosphatase (38-126) U/L Creatine Kinase (55-170) U/L CK-MB (CK-2) (0.0-2.4) ng/mL Troponin I (0.000-0.034) ng/mL Total Protein (6.3-8.2) g/dL Albumin (3.5-5.0) g/dL 04/07/20 04/07/20 04/07/20 Range/Units 04:00 04:38 04:38 WBC (3.8-10.6) k/uL RBC (4.30-5.90) m/uL Hgb (13.0-17.5) gm/dL Hct (39.0-53.0) % Neutrophils # (1.3-7.7) k/uL Lymphocytes # (1.0-4.8) k/uL APTT (22.0-30.0) sec Sodium 135 L (137-145) mmol/L Potassium 6.1 H* (3.5-5.1) mmol/L BUN 98 H (9-20) mg/dL Creatinine 3.98 H (0.66-1.25) mg/dL Glucose 142 H (74-99) mg/dL POC Glucose (mg/dL) (75-99) mg/dL Calcium 8.1 L (8.4-10.2) mg/dL Phosphorus 10.5 H* (2.5-4.5) mg/dL AST 1362 H (17-59) U/L ALT 495 H (4-49) U/L Alkaline Phosphatase 234 H (38-126) U/L Creatine Kinase 02196 H* (55-170) U/L CK-MB (CK-2) 30.3 H (0.0-2.4) ng/mL Troponin I (0.000-0.034) ng/mL Total Protein 5.7 L (6.3-8.2) g/dL Albumin 2.6 L (3.5-5.0) g/dL 04/07/20 Range/Units 06:08 WBC (3.8-10.6) k/uL RBC (4.30-5.90) m/uL Hgb (13.0-17.5) gm/dL Hct (39.0-53.0) % Neutrophils # (1.3-7.7) k/uL Lymphocytes # (1.0-4.8) k/uL APTT (22.0-30.0) sec Sodium (137-145) mmol/L Potassium (3.5-5.1) mmol/L BUN (9-20) mg/dL Creatinine (0.66-1.25) mg/dL Glucose (74-99) mg/dL POC Glucose (mg/dL) 127 H (75-99) mg/dL Calcium (8.4-10.2) mg/dL Phosphorus (2.5-4.5) mg/dL AST (17-59) U/L ALT (4-49) U/L Alkaline Phosphatase (38-126) U/L Creatine Kinase (55-170) U/L CK-MB (CK-2) (0.0-2.4) ng/mL Troponin I (0.000-0.034) ng/mL Total Protein (6.3-8.2) g/dL Albumin (3.5-5.0) g/dL Microbiology - Last 24 Hours (Table) 04/06/20 01:19 Blood Culture - Preliminary Blood No Growth after 24 hours
[2020-04-07] MEDS ORDERED: MORPHINE SULFATE 2 MG/ML SYRINGE IV PRN (11:56)
[2020-04-07] MEDS ORDERED: LORazepam 2 MG/ML INJ IV PRN (11:56)
[2020-04-07] MEDS ORDERED: SCOPOLAMINE 1.5MG/72HR PATCH TRANSDERM SCH (12:00)
[2020-04-07] MEDS: MORPHINE SULFATE (100 MG/2 ML) 100 MG in SODIUM CHLORIDE 0.9% 100 ML IV SCH (12:53)
--- NOTE | 2020-04-07 13:42 | P.PN ---
Subjective Progress Note Date: 04/07/20 Upon speaking with the patient and patient's nurse today, patient has expressed wish to discontinue his dialysis and withdraw therapeutic care in lieu of comfort. Patient's sister amy was made aware of this, and agreed to transition patient to comfort care/hospice services in light of his worsening clinical condition. This is consistent with patient's previous stated wishes to me as well when I transferred him to the ICU originally in that, he did not want to have a prolonged hospital course in the ICU with requirements of machines for life support and tubes for feeding. Patient's sister agrees that patient's wishes are against have senior living dialysis, which at this point appears to be the case. 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 Objective - Vital Signs Vital signs: Vital Signs Temp 99 F 04/07/20 04:00 Pulse 107 H 04/07/20 13:00 Resp 25 H 04/07/20 13:00 BP 123/65 04/07/20 13:00 Pulse Ox 95 04/07/20 13:00 Intake & Output 04/06/20 04/07/20 04/07/20 18:59 06:59 18:59 Intake Total 1782 1072 110.697 Output Total 20 5 5 Balance 1762 1067 105.697 Weight 104.6 kg 104.6 kg Intake: IV 702 322 110 0.9 NACL 30 80 Dextrose 5% in Water 1, 600 250 000 ml @ 50 mls/hr IV . Q23H ONE with Sodium Bicarb (1 Meq/ml) 150 ml Rx#:[id number] Pressure bag 72 72 30 Intake, IV Titration 250 250 0.697 Amount Heparin Sod,Pork in 0.45% 250 250 NaCl 25,000 unit In 0.45 % NaCl 1 250ml.bag @ 8 UNITS/KG/HR 8.944 mls/hr IV .Q24H [facility] Rx#: [id number] Morphine Sulfate (100 mg/ 0.697 2 ml) 100 mg In Sodium Chloride 0.9% 100 ml @ 1 MG/HR 1.02 mls/hr IV . Q24H [facility] Rx#:[id number] Tube Feeding 490 320 0 Other 340 180 Output: Urine 20 5 5 Other: Voiding Method Indwelling Catheter Indwelling Catheter ABP, PAP, CO, CI - Last Documented Arterial Blood Pressure 128/57 - Exam Gen: awake, alert HEENT: normocephalic, atraumatic, good hearing acuity, dry mucous membranes Resp: coarse breath sounds, equal chest expansion CVS: good distal perfusion x 4, irregular rhythm, regular rate, no appreciable murmurs GI: soft, NTTP, ND, rectal tube : no SPT, no CVAT, eagle catheter is present MSK: Diffuse pitting edema/anasarca, no clubbing Neuro: diffuse weakness, 2+/5 handgrip strength b/l, 1/5 dorsi/plantar flexion left, 2/5 dorsiflexion on the right, 1/5 plantar flexion on the right - Labs CBC & Chem 7: 04/07/20 04:00 04/07/20 04:00 Labs: Abnormal Lab Results - Last 24 Hours (Table) 04/06/20 04/06/20 04/06/20 Range/Units 12:30 12:30 17:53 WBC (3.8-10.6) k/uL RBC (4.30-5.90) m/uL Hgb (13.0-17.5) gm/dL Hct (39.0-53.0) % Neutrophils # (1.3-7.7) k/uL Lymphocytes # (1.0-4.8) k/uL APTT (22.0-30.0) sec Sodium (137-145) mmol/L Potassium (3.5-5.1) mmol/L BUN (9-20) mg/dL Creatinine (0.66-1.25) mg/dL Glucose (74-99) mg/dL POC Glucose (mg/dL) 116 H (75-99) mg/dL Calcium (8.4-10.2) mg/dL Phosphorus (2.5-4.5) mg/dL AST (17-59) U/L ALT (4-49) U/L Alkaline Phosphatase (38-126) U/L Creatine Kinase 835940 H* (55-170) U/L CK-MB (CK-2) 56.4 H (0.0-2.4) ng/mL Troponin I 0.977 H* (0.000-0.034) ng/mL Total Protein (6.3-8.2) g/dL Albumin (3.5-5.0) g/dL 04/06/20 04/07/20 04/07/20 Range/Units 23:31 04:00 04:00 WBC 14.1 H (3.8-10.6) k/uL RBC 2.88 L (4.30-5.90) m/uL Hgb 9.1 L (13.0-17.5) gm/dL Hct 27.5 L (39.0-53.0) % Neutrophils # 13.4 H (1.3-7.7) k/uL Lymphocytes # 0.4 L (1.0-4.8) k/uL APTT 48.8 H (22.0-30.0) sec Sodium (137-145) mmol/L Potassium (3.5-5.1) mmol/L BUN (9-20) mg/dL Creatinine (0.66-1.25) mg/dL Glucose (74-99) mg/dL POC Glucose (mg/dL) 152 H (75-99) mg/dL Calcium (8.4-10.2) mg/dL Phosphorus (2.5-4.5) mg/dL AST (17-59) U/L ALT (4-49) U/L Alkaline Phosphatase (38-126) U/L Creatine Kinase (55-170) U/L CK-MB (CK-2) (0.0-2.4) ng/mL Troponin I (0.000-0.034) ng/mL Total Protein (6.3-8.2) g/dL Albumin (3.5-5.0) g/dL 04/07/20 04/07/20 04/07/20 Range/Units 04:00 04:38 04:38 WBC (3.8-10.6) k/uL RBC (4.30-5.90) m/uL Hgb (13.0-17.5) gm/dL Hct (39.0-53.0) % Neutrophils # (1.3-7.7) k/uL Lymphocytes # (1.0-4.8) k/uL APTT (22.0-30.0) sec Sodium 135 L (137-145) mmol/L Potassium 6.1 H* (3.5-5.1) mmol/L BUN 98 H (9-20) mg/dL Creatinine 3.98 H (0.66-1.25) mg/dL Glucose 142 H (74-99) mg/dL POC Glucose (mg/dL) (75-99) mg/dL Calcium 8.1 L (8.4-10.2) mg/dL Phosphorus 10.5 H* (2.5-4.5) mg/dL AST 1362 H (17-59) U/L ALT 495 H (4-49) U/L Alkaline Phosphatase 234 H (38-126) U/L Creatine Kinase 98963 H* (55-170) U/L CK-MB (CK-2) 30.3 H (0.0-2.4) ng/mL Troponin I (0.000-0.034) ng/mL Total Protein 5.7 L (6.3-8.2) g/dL Albumin 2.6 L (3.5-5.0) g/dL 04/07/20 Range/Units 06:08 WBC (3.8-10.6) k/uL RBC (4.30-5.90) m/uL Hgb (13.0-17.5) gm/dL Hct (39.0-53.0) % Neutrophils # (1.3-7.7) k/uL Lymphocytes # (1.0-4.8) k/uL APTT (22.0-30.0) sec Sodium (137-145) mmol/L Potassium (3.5-5.1) mmol/L BUN (9-20) mg/dL Creatinine (0.66-1.25) mg/dL Glucose (74-99) mg/dL POC Glucose (mg/dL) 127 H (75-99) mg/dL Calcium (8.4-10.2) mg/dL Phosphorus (2.5-4.5) mg/dL AST (17-59) U/L ALT (4-49) U/L Alkaline Phosphatase (38-126) U/L Creatine Kinase (55-170) U/L CK-MB (CK-2) (0.0-2.4) ng/mL Troponin I (0.000-0.034) ng/mL Total Protein (6.3-8.2) g/dL Albumin (3.5-5.0) g/dL Microbiology - Last 24 Hours (Table) 04/06/20 01:19 Blood Culture - Preliminary Blood No Growth after 24 hours Assessment and Plan Assessment: CODY secondary to ATN/Rhabdomyolysis requiring hemodialysis, hyperphosphatemia - Dialysis again on 04/05, none 04/04 - Nephrology following - On oral bicarb - Nepro/phoslo Rhabdomyolysis - Etiology of rhabdo is unclear - non-traumatic, non-exertional in nature. - DDx: - inflammatory (unlikely, CRP improving) vs - infection or toxin mediated (unlikely, late onset after control of septic shock) vs - drug-effect (possible: eraxis + statin during oliguric renal failure ) superimposed on immobility (probable: critical illness myopathy) - continue to trend BID - can consider obtaining CK-MB component of total CK - dialysis as above Acute hypoxic respiratory failure, Pneumonia, ARDS - + procalcitionin - ID and Pulm recs: - Doxy, Unasyn - Eraxis d/c'd on 04/05 - pulm hygeine - Flu negative, COVID negative, sputum and blood cultures are negative, Lyme IgG and IgM negative, [place] AB negative will need repeat testing in 2 weeks - Speckled ALEX+, 1:80. 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 fib - Cardiology recommendations - On heparin gtt - Not requiring rate or rhythm controlling medications Steroid induced hyperglycemia, resolved and now with episode of hypoglycemia - levemir stopped - continue with sliding scale - follow BS - A1C 6.1, repeat in 6 months Coffee ground emesis. resolved and due to NGT irritation Sepsis, resolved Transaminitis, improving Hypomagnesemia, resolved ileus, resolved Chest pain due to pleurisy, ACS ruled out hyperkalemia Hyponatremia secondary to fluid overload, resolved Chronic: Coronary artery disease GERD Hyperlipidemia DVT prophylaxis: Heparin gtt Discussed with: nursing, Anticipated discharge: unknown Anticipated discharge place: SNF VS LTACH Dispo: Plan is for patient to transition fully to hospice, but to continue care with abx, steroids, oxygen support until tomorrow AM, while providing morphine and ativan for pain and anxiety; this will allow some time for patients family for visitation.
--- NOTE | 2020-04-07 14:18 | PN ---
PROGRESS NOTE Patient is seen for followup for acute kidney injury. This morning he is seen on dialysis. However, patient has decided not to proceed with renal replacement therapy at this time. He is scheduled for a muscle biopsy. He continues to feel sick, although he is off the vent and is awake and able to carry on a conversation. PHYSICAL EXAMINATION: On examination this morning, blood pressure was 154/66, heart rate 91 per minute. He is afebrile. EXAMINATION OF THE HEART: S1, S2. EXAMINATION OF THE LUNGS: Bilateral breath sounds are heard. Abdomen is soft, nontender. Examination of lower extremities shows edema 1+ bilaterally. 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 LABS: Labs show sodium 135, potassium 6.1, chloride 101, phosphorus 10.5. CK level 03522, which is slightly lower than 954307 yesterday. Hemoglobin was 9.1 g/dL. ASSESSMENT: 1. Acute kidney injury, acute tubular necrosis, oliguric, currently hemodialysis dependent, receiving dialysis on a daily basis. However, at this time patient does not want to continue with renal replacement therapy. His family is further having a discussion regarding that. 2. Acute hypoxic respiratory failure secondary to pneumonia currently off the vent. 3. Rhabdomyolysis. CK trending down. 4. Hyperkalemia associated with rhabdomyolysis. 5. Hyperphosphatemia from acute kidney injury as well as rhabdomyolysis. We will start phosphate binders. PLAN: Hemodialysis today. However, if the patient and family decide to discontinue renal replacement therapy, we will take him off dialysis. MMODL / IJN: [id number] /
--- NOTE | 2020-04-07 16:42 | P.PN ---
Subjective Progress Note Date: 04/07/20 04/07/2020: Came to see the patient. Apparently patient has decided Comfort Care, with no treatment. He has declined hemodialysis, canceled muscle biopsy. Patient is laying comfortably in the bed. Appears encephalopathic. Patient's sister and significant other were also present. 04/06/2020: Patient appears much better from mental status standpoint. Patient more alert and awake, following commands as below. Patient's speech somewhat incomprehensible because of dry mouth. 04/05/2020: Patient was initially seen by Dr. Dony Ceja M.D. on 04/03/2020. Please refer to his note for details. Patient has a very prolonged hospitalization, been in the hospital since 03/22/2020 admitted for chest pain, admitted first unstable angina. Patient subsequently has developed severe toxic metabolic encephalopathy due to reasons mentioned below. Patient diagnosed with septic shock, toxic metabolic encephalopathy with elevated LFTs, acute kidney injury, hyperphosphatemia, medication induced perhaps from Decadron, and episodes of hypoglycemia. Patient also has acute hypoxic respiratory failure, pneumonia, deconditioning, possible myopathy, elevated LFTs. Patient was extubated on Sunday, to 04/02/2020. Patient has been severely deconditioned. Patient has bilateral frontal twitching, which was felt not to be a seizure. EEG was performed yesterday, which revealed no epileptiform activity. Objective - Vital Signs Vital signs: Vital Signs Temp 99.1 F 04/07/20 13:11 Pulse 88 04/07/20 16:00 Resp 17 04/07/20 16:00 BP 107/56 04/07/20 16:00 Pulse Ox 93 L 04/07/20 16:00 Intake & Output 04/06/20 04/07/20 04/07/20 18:59 06:59 18:59 Intake Total 1782 1072 254.697 Output Total 20 5 5025 Balance 1762 1067 -4770.303 Weight 104.6 kg 104.6 kg Intake: IV 702 322 214 0.9 NACL 30 160 Dextrose 5% in Water 1, 600 250 000 ml @ 50 mls/hr IV . Q23H ONE with Sodium Bicarb (1 Meq/ml) 150 ml Rx#:[id number] Pressure bag 72 72 54 Intake, IV Titration 250 250 0.697 Amount Heparin Sod,Pork in 0.45% 250 250 NaCl 25,000 unit In 0.45 % NaCl 1 250ml.bag @ 8 UNITS/KG/HR 8.944 mls/hr IV .Q24H [facility] Rx#: [id number] Morphine Sulfate (100 mg/ 0.697 2 ml) 100 mg In Sodium Chloride 0.9% 100 ml @ 1 MG/HR 1.02 mls/hr IV . Q24H [facility] Rx#:[id number] Tube Feeding 490 320 40 Other 340 180 Output: Urine 20 5 5 Stool 2400 Hemodialysis 2620 Other: Voiding Method Indwelling Catheter Indwelling Catheter Indwelling Catheter ABP, PAP, CO, CI - Last Documented Arterial Blood Pressure 110/44 - Exam On examination patient is an elderly male, who is laying in the bed. Patient somnolent. Detailed testing deferred. - Labs CBC & Chem 7: 04/07/20 04:00 04/07/20 04:00 Labs: Abnormal Lab Results - Last 24 Hours (Table) 04/06/20 04/06/20 04/07/20 Range/Units 17:53 23:31 04:00 WBC (3.8-10.6) k/uL RBC (4.30-5.90) m/uL Hgb (13.0-17.5) gm/dL Hct (39.0-53.0) % Neutrophils # (1.3-7.7) k/uL Lymphocytes # (1.0-4.8) k/uL APTT 48.8 H (22.0-30.0) sec Sodium (137-145) mmol/L Potassium (3.5-5.1) mmol/L BUN (9-20) mg/dL Creatinine (0.66-1.25) mg/dL Glucose (74-99) mg/dL POC Glucose (mg/dL) 116 H 152 H (75-99) mg/dL Calcium (8.4-10.2) mg/dL Phosphorus (2.5-4.5) mg/dL AST (17-59) U/L ALT (4-49) U/L Alkaline Phosphatase (38-126) U/L Creatine Kinase (55-170) U/L CK-MB (CK-2) (0.0-2.4) ng/mL Total Protein (6.3-8.2) g/dL Albumin (3.5-5.0) g/dL 04/07/20 04/07/20 04/07/20 Range/Units 04:00 04:00 04:38 WBC 14.1 H (3.8-10.6) k/uL RBC 2.88 L (4.30-5.90) m/uL Hgb 9.1 L (13.0-17.5) gm/dL Hct 27.5 L (39.0-53.0) % Neutrophils # 13.4 H (1.3-7.7) k/uL Lymphocytes # 0.4 L (1.0-4.8) k/uL APTT (22.0-30.0) sec Sodium 135 L (137-145) mmol/L Potassium 6.1 H* (3.5-5.1) mmol/L BUN 98 H (9-20) mg/dL Creatinine 3.98 H (0.66-1.25) mg/dL Glucose 142 H (74-99) mg/dL POC Glucose (mg/dL) (75-99) mg/dL Calcium 8.1 L (8.4-10.2) mg/dL Phosphorus 10.5 H* (2.5-4.5) mg/dL AST 1362 H (17-59) U/L ALT 495 H (4-49) U/L Alkaline Phosphatase 234 H (38-126) U/L Creatine Kinase (55-170) U/L CK-MB (CK-2) 30.3 H (0.0-2.4) ng/mL Total Protein 5.7 L (6.3-8.2) g/dL Albumin 2.6 L (3.5-5.0) g/dL 04/07/20 04/07/20 Range/Units 04:38 06:08 WBC (3.8-10.6) k/uL RBC (4.30-5.90) m/uL Hgb (13.0-17.5) gm/dL Hct (39.0-53.0) % Neutrophils # (1.3-7.7) k/uL Lymphocytes # (1.0-4.8) k/uL APTT (22.0-30.0) sec Sodium (137-145) mmol/L Potassium (3.5-5.1) mmol/L BUN (9-20) mg/dL Creatinine (0.66-1.25) mg/dL Glucose (74-99) mg/dL POC Glucose (mg/dL) 127 H (75-99) mg/dL Calcium (8.4-10.2) mg/dL Phosphorus (2.5-4.5) mg/dL AST (17-59) U/L ALT (4-49) U/L Alkaline Phosphatase (38-126) U/L Creatine Kinase 98424 H* (55-170) U/L CK-MB (CK-2) (0.0-2.4) ng/mL Total Protein (6.3-8.2) g/dL Albumin (3.5-5.0) g/dL Microbiology - Last 24 Hours (Table) 04/06/20 01:19 Blood Culture - Preliminary Blood No Growth after 24 hours Assessment and Plan Assessment: * Altered mental status, likely due to toxic metabolic encephalopathy, improved. * Acute renal failure, requiring dialysis. Likely ATN due to rhabdomyolysis * Elevated hepatic enzymes * Rhabdomyolysis, now improving, probably with steroids. CK has climbed up to 110,120. 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 Diffuse areflexia, rule out critical illness neuropathy/myopathy. * Status post GI bleed, felt to be related to NG tube irritation. * New onset atrial fibrillation Plan: * Patient's quadriparesis is likely due to severe rhabdomyolysis, but the cause of rhabdomyolysis is uncertain. Recommend muscle biopsy of biceps and/or quadriceps muscle (anyone side) for further evaluation of severe myopathy. Need to rule out if there is an inflammation component, or toxic myofibrillar necrosis. Muscle biopsy was canceled because of hyperkalemia. Await aldolase level. * Continue dexamethasone 4 mg IV every 6 hours. * Discussed with Dr. Sanchez. * Continue gastric ulcer prophylaxis. * Patient's ALEX is +80 with speckled pattern, C-ANCA, P-ANCA are negative, double-stranded DNA, glomerular basement membrane antibodies negative. Lyme t iter hepatitis panel negative. B12 is normal 930, RBC folate 728 normal. TSH normal. Ammonia normal. * Patient's last computed tomography scan of head from 04/03/2020 showed no acute process. * EEG was technically limited because of significant myogenic artifact. No epileptiform activity was seen. * Patient has new onset atrial fibrillation, currently on aspirin and subcu heparin. Would differ anticoagulation to IM/cardiology/GI. * Discussed with patient's sister and significant other. Although patient's CPK was improving, but Patient has decided to go with comfort care. He has declined to have dialysis. * Neurology will sign off. Please reconsult if patient changes his decision about full treatment.
[2020-04-07] MEDS: DEXAMETHASONE SOD PHOSPHATE 4 MG/ML 1 ML VIAL IV SCH (18:22)
--- NOTE | 2020-04-07 22:07 | PN ---
PROGRESS NOTE DATE OF SERVICE: 04/07/2020 REASON FOR FOLLOWUP: Pneumonia. INTERVAL HISTORY: The patient is currently afebrile. The patient is slightly more awake and alert. He responded to his name did not answer any questions. He has been tolerating his tube feeds and no worsening diarrhea has been reported. The patient himself was unable to provide any history. PHYSICAL EXAMINATION: Blood pressure is 107/56, pulse of 80, temperature 98.9. He is 93% 2 L nasal cannula. General description is an elderly male lying in bed in no distress. RESPIRATORY SYSTEM: Unlabored breathing with decreased intensity of breath sounds. No wheeze. HEART: S1, S2. Regular rate and rhythm. ABDOMEN: Soft. No tenderness. LABS: Hemoglobin is 9.1, white count 14.1, BUN of 98, creatinine 7.98. CK is down to 59,000. DIAGNOSTIC IMPRESSION AND PLAN: Patient with pneumonia, possible aspiration, and concern for possible zoonotic in this patient who did have extensive workup. So far culture and workup has been negative. Patient is currently covered with Unasyn. Apparently the patient has been leaning more toward hospice which maybe appropriate. Antibiotic can be safely discontinued at that point. Continue with supportive care. MMODL / IJN: [id number] / BRITTNEY
[2020-04-08 00:05] LABS: Glucose,Whole Blood 137 mg/dL (75-99)
[2020-04-08] MEDS: INSULIN ASPART (NovoLOG) 100 UNIT/ML VIAL SQ SCH ×2 (00:23→06:23)
[2020-04-08] MEDS: DEXAMETHASONE SOD PHOSPHATE 4 MG/ML 1 ML VIAL IV SCH ×2 (00:24→06:23)
[2020-04-08] MEDS: CALCIUM ACETATE 667 MG TAB PO SCH (06:23)
--- NOTE | 2020-04-08 07:46 | XR ---
EXAMINATION TYPE: XR chest 1V portable DATE OF EXAM: 04/08/2020 COMPARISON: 21 HISTORY: SOB, Follow Up FINDINGS: Indwelling tubes and catheters are unchanged. No change in bibasilar opacities. Stable appearance of the cardio-mediastinal structures at this time. IMPRESSION: 1. Stable portable chest. Clinical correlation and follow up until resolution is recommended.
[2020-04-08] MEDS: amLODIPine 10 MG TAB NG-TUBE SCH (08:43)
[2020-04-08] MEDS: CLEVIDIPINE BUTYRATE 25 MG in EMPTY BAG 1 BAG IV SCH (08:43)
[2020-04-08 09:03] VITALS: BP 131/63; TEMP 99.8
[2020-04-08] MEDS: SODIUM BICARBONATE TAB 650 MG TAB PO SCH (09:12)
[2020-04-08] MEDS: AMPICILLIN-SULBACTAM 3 GM in SODIUM CHLORIDE 0.9% 100 ML IVPB SCH (09:12)
[2020-04-08] MEDS: IPRATROPIUM-ALBUTEROL 3 ML NEB INHALATION SCH (09:34)
[2020-04-08] MEDS: MORPHINE SULFATE (100 MG/2 ML) 100 MG in SODIUM CHLORIDE 0.9% 100 ML IV SCH (10:13)
--- NOTE | 2020-04-08 10:52 | P.PN ---
Subjective Progress Note Date: 04/08/20 CHIEF COMPLAINT: Ileus HISTORY OF PRESENT ILLNESS: Patient is currently on comfort care and will be transitioned to hospice likely later today. He is currently on a morphine drip. He appears comfortable. Patient was being followed for an abdominal ileus and for possible biopsy of quadricep regarding the rhabdomyolysis and severe myopathy. The quadricep biopsy was canceled due to hyperkalemia yesterday. Patient has decided to proceed with comfort care measures. He is declined any further hemodialysis. Afebrile PHYSICAL EXAM: VITAL SIGNS: Reviewed. GENERAL: Well-developed in no acute distress. HEENT: No sclera icterus. Extraocular movements grossly intact. Moist buccal mucosa. Head is atraumatic, normocephalic. ABDOMEN: Soft. Nondistended. Nontender. NEUROLOGIC: Lethargic. Weak ASSESSMENT: 1. Rhabdomyolysis 2. Ileus resolved 3. Episode of coffee ground emesis likely due to NG tube irritation, no further episodes 4. Hyperkalemia PLAN: -Agree with comfort care measures and hospice Physician Rack Puncher note has been reviewed by physician. Signing provider agrees with the documented findings, assessment, and plan of care. Objective - Vital Signs Vital signs: Vital Signs Temp 99.8 F H 04/08/20 09:00 Pulse 80 04/08/20 09:00 Resp 12 04/08/20 09:00 BP 131/63 04/08/20 09:00 Pulse Ox 95 04/08/20 09:00 Intake & Output 04/07/20 04/08/20 04/08/20 18:59 06:59 18:59 Intake Total 440.697 316 173.550 Output Total 2625 0 0 Balance -2184.303 316 173.550 Weight 104.6 kg 103 kg Intake: IV 280 276 46 0.9 NACL 220 240 40 Pressure bag 60 36 6 Intake, IV Titration 0.697 87.550 Amount Morphine Sulfate (100 mg/ 0.697 87.550 2 ml) 100 mg In Sodium Chloride 0.9% 100 ml @ 1 MG/HR 1.02 mls/hr IV . Q24H [facility] Rx#:[id number] Tube Feeding 160 40 40 Output: Urine 5 0 0 Hemodialysis 2620 Other: Voiding Method Indwelling Catheter Indwelling Catheter ABP, PAP, CO, CI - Last Documented Arterial Blood Pressure 131/53 - Labs CBC & Chem 7: 04/07/20 04:00 04/07/20 04:00 Labs: Abnormal Lab Results - Last 24 Hours (Table) 04/08/20 Range/Units 00:03 POC Glucose (mg/dL) 137 H (75-99) mg/dL Microbiology - Last 24 Hours (Table) 04/06/20 01:19 Blood Culture - Preliminary Blood No Growth after 48 hours
[2020-04-08] MEDS: ASPIRIN 81 MG PO SCH (11:00)
--- NOTE | 2020-04-08 11:00 | P.PN ---
Subjective Progress Note Date: 04/08/20 Principal diagnosis: Respiratory failure Reevaluated today on 03/28/2020, patient remains in the ICU, intubated and mechanically ventilated. Remains on the same ventilator settings, assist control rate of 26 tidal volume is 450 FiO2 50% PEEP of 14. ABG showed a pO2 of 89 pCO2 of 34 pH of 7.41, hence no change was made in the ventilator settings. However I noticed some leak around the endotracheal tube, and recommended respiratory to have more air in the cough, and adjustment of the endotracheal tube placement. Patient is on multiple drips including fentanyl 0.25 mcg/kg/h, norepinephrine is at 0.05 mcg/kg/m. Propofol at 60 mcg/kg/m. Heparin drip, insulin 5 units per hour drip, and bicarb drip at 75 mL per hour. Patient is back on enteral feeding since he responded well to lactulose, and had multiple bowel movements now he has a fecal management system. In place. Patient went into atrial fibrillation around 4:30 AM, however his rate seems to be fairly well controlled, and basically on heparin only. Underwent SLED yesterday, and was tolerated, 200 mL oFF. Chest x-ray continues to show bilateral interstitial infiltrates, consistent with ARDS. Although the possibility of interstitial edema/fluid overload secondary to renal failure and oliguria. Is not entirely ruled out. Microbiology from sputum and blood remains nondiagnostic. titer for Francisella is pending. CBC is normal WBC count is 7.6 hemoglobin is 10.8. PTT is 53.3. Liver enzymes remain slightly elevated. Repeat pro-calcitonin is pending. Urine Legionella antigen is negative On 03/29/2020 patient seen in follow-up in the intensive care unit, patient remains sedated, and intubated on mechanical ventilator current vent settings are assist control mode of ventilation with a rate of 26, tidal -450, FiO2 of 50% and PEEP of 14 this morning blood gases were reviewed showing pO2 112, pCO2 39 pH of 7.39 and subsequently FiO2 was dropped down to 45%. Is on multiple IV was including 0.9 normal saline at rate of 50 ML per hour, fentanyl at 0.5 mcg/kg/h, insulin at 3 units per hour, Diprivan is at 65 mics per kilogram per minute, levophed is at 4 mics per minute. Patient's tube feedings have been on hold since yesterday related to episode of coffee-ground emesis. Today's hemogl obin is 10.9, white blood cell count of 7.9, significantly improved from a few days ago, PTT is 43.4, sodium is 136, potassium is 5.1, CO2 is 21, chloride is 97, B1 is 92, creatinine is 6.52, patient had hemodialysis treatment yesterday and 1 L of fluid was removed. Nephrology is following, and patient is anticipated to have hemodialysis with ultrafiltration. Today's chest x-ray shows cardiomegaly with bilateral lower lung multifocal acute infiltrates and/or atelectasis and small bilateral pleural effusions and bilateral central vascular congestion. Patient also appears to be generally fluid overloaded. Vasopressor requirements have significantly improved from a few days ago. Blood and sputum cultures have shown no growth thus far. Continue urine antigen was negative, influenza and COVID 19 PCR were negative, awaiting results of the Francisella tularensis antibody test On 03/30/2020 patient seen in follow-up in the intensive care unit, he remains sedated and intubated on mechanical ventilator current vent settings are assist control mode of ventilation with a rate of 26, tidal volumes 450 FiO2 45% and PEEP of 14. This morning his blood gases have been reviewed showing pO2 of 113, pCO2 of 36 and pH of 7.38. PEEP was then dropped to 10. Patient IVs include 0.9 normal saline at a rate of 50 ML per hour, Diprivan is a 65 mics per kilo per minute, fentanyl drip is 0.5 mics per kilo per minute, insulin drip is at 3 units per hour. Tube feedings in the form of vital high-protein at a rate of 12 mL an hour, and the goal is 12. Today's labs have been reviewed, pro-calcitonin has improved although still significantly elevated at 59.06, cultures have been reviewed including blood and sputum cultures, and remain negative thus far, patient remains on doxycycline, Levaquin, and Zosyn, ID service is following. White blood cell count is 6.3, hemoglobin is 10.9, sodium is 131, potassium is 5.8, chloride is 97, CO2 is 18, B1 is 100, and creatinine is 5.5. Remains in anuric, he had hemodialysis yesterday with removal of 1 L of fluid. Today's chest x-ray has been reviewed showing improving right lower lobe infiltrate. No acute events overnight, patient has not had any further bleeding, tolerating tube feedings well. Has been afebrile. Not requiring any vasopressor support. Progress note dated 03/31/2020. 70-year-old male again seen in the intensive care unit. The patient remains intubated and mechanically ventilated. He is on the volume assist control mo dality, rate 26, tidal volume 450, FiO2 45%, but 10. Arterial blood gases show a PaO2 of 100, PaCO2 of 34, pH is 7.38. The patient's currently on saline 10 mL an hour, fentanyl drip at 1 mcg/kg per hour, propofol at 70 mcg/kg/m, and vital high protein at 12 cc per hour, which is goal. His Francisella tularensis antibody test was negative. I believe the patient is a good candidate today for a daily interruption of sedation and a spontaneous trial potentially. We planned to think about doing a bronchoscopy on the patient today for sampling, but it was not done yesterday. The patient is not requiring any blood pressure support. White count is 10.3, hemoglobin 11.7, hematocrit 34.6, and platelet count 217,000. Sodium was 1:30, potassium 6.1, chloride 96, CO2 17, anion gap 17, and BUN of 107 with a creatinine of 5.34. His albumin is 2.3. AST is 89, ALT is 85. Microbiologic studies were negative. Chest x-ray could not be retrieved, and the official report is pending. The patient remains on Levaquin, doxycycline, and Zosyn. Progress note dated 04/01/2020. 70-year-old male, again seen in the intensive care unit today. The patient remained on the ventilator overnight. Yesterday, he apparently attempted a daily eruption of sedation and a spontaneous breathing trial, and the patient apparently became hypertensive and he was recently dated. Nobody told me of this. I did tell them today again to do another daily eruption of sedation and a spontaneous breathing trial. The patient should be on pressure support of 10, CPAP of 5, and if his blood pressure goes up, they should use Cleveprex to control it. He did have hemodialysis yesterday, 4 L was removed. He still has significant scrotal edema. Currently, he is on the volume assist control modality, rate 26, tidal volume 450, FiO2 45%, and a PEEP of 10. Arterial blood gases show a PaO2 of 110, PaCO2 37, and a pH 7.36. The patient remains on propofol at 40 g kilogram per minute, fentanyl at 1 mcg/kg/h, saline at KVO, and vital high protein at goal, which is 44 mL an hour. Progress note dated 04/02/2020. 70-year-old male, seen in the intensive care unit today. He remains on the mechanical ventilator. He is on the volume assist control mode, rate 26, tidal volume 450, FiO2 45%, PEEP of 10. Arterial blood gases show a PaO2 of 140, PaCO2 36, and a pH is 7.43. The PEEP was dropped from 10-5. The patient's on heparin via weightbase protocol, norepinephrine at 2.2 mcg/m, saline at KVO, and tube feeds with Nepro at 16 mL an hour, which is goal. The patient did have hemodialysis yesterday, and 3-1/2 L was removed. Today, the patient will have a spontaneous breathing trial. He'll be placed on pressure support of 5 and CPAP of 5. The patient's mental status is not great. The patient has been off of sedation for more than 24 hours. White count is 18.1, hemoglobin 11.1, hematocrit 32.3, and platelet count 194,000. PTT is 99.5. Sodium potassium chloride CO2 and anion gap are all normal. BUN is 93, and creatinine is 4.61. Microbiologic studies are negative. The patient is seen today 04/03/2020 in follow-up in the intensive care unit. He was successfully extubated yesterday. He remains on BiPAP at 12/5 and 50% FiO2. Blood gases on 6 L nasal cannula revealed a pO2 of 70, pCO2 33, pH 7.45. He is currently on Klonopin at 13 mg per hour. Heparin per weight-based protocol. 0.9 normal saline at 10 minimal per hour. He is being nourished with TPN. Swallow evaluation pending. Computed tomography scan of the brain revealed no acute abnormalities. EEG is pending. He is awake. Alert. Following simple commands. He is extremely weak. Blood and sputum cultures revealed no growth. White count 13.1. Hemoglobin 10.6. Sodium 139. Potassium 4.7. Creatinine 4.16. AST 128. ALT 87. Alk phos 187. Albumin 2.3. He remains on Unasyn, doxycycline, Eraxis. Continued on bronchodilators. Patient is seen today for very 2020 in follow-up in the intensive care unit. He is currently resting comfortably in bed. He is down to 6 L high flow nasal cannula to maintain O2 saturations in the 90s. He remains hypertensive and on quinapril at 12 mg per hour. He remains on heparin per weight-based protocol. 0.9 normal saline at KVO. He did receive hemodialysis yesterday with 4 L removed. He remains in atrial fibrillation with a controlled ventricular rate. He is awake. Following some simple commands. He has a very soft voice. Very weak cough. Very debilitated. Blood cultures reveal no growth. Sputum culture reveals no growth. White count 14.6. Hemoglobin 10.2. Sodium 138. Potassium 5.1. Creatinine 5.09. BUN 105. Phosphorus 10.7. AST 249. ALT 121. He remains on Unasyn, doxycycline and Eraxis. Continued on bronchodilators. Dobbhoff tube was placed for nutritional support. 04/06/2020, the patient is awake. Overnight he was in the BiPAP and currently is on oxygen at 5 L. He remains on IV Unasyn and doxycycline. Her axis was discontinued. The active issue for now is in acute rhabdomyolysis did evolve on this patient. Based on the labs, the CBC has been progressively going up and this morning is up to 82,213. At the same time, the patient has an elevation of AST which is typical of rhabdomyolysis, the calcium level is at 7.9 potassium level is at 5.4 which is a skin related to rhabdomyolysis. Renal function continues to be impaired and the patient's BUN is at 102 and the creatinine is up to 5.04. Off TPN for now. Cardiac rhythm is atrial fibrillation with a controlled rate. He remains on clevidipine drip which was weaned off and discontinued and patient was started on a combination of Norvasc 10 mg clonidine 0.2 mg 3 times a day and hydralazine 25 mg by mouth 3 times a day. BP is under better control for now and the morning blood pressures 139/56. The patient is in atrial fibrillation. The active issue for now is his ongoing rhabdomyolysis. 04/07/2020, the patient is on BiPAP at a pressure of 12/5 cm of water with an FiO2 of 40%. We are putting him in a BiPAP overnight and during the day he is on oxygen at 5 L per minute nasal cannula. His chest x-ray from today shows no major abnormalities. He is profoundly weak. The active issue remains his ongoing severe rhabdomyolysis. Monitoring the CPK showed that his CPK as above 110,000. His potassium continues to rise back up to 6.1 and his serum bicarb is at 23 and the patient's SGOT is 1362. Creatinine is at 3.9 and a BUN is at 98. The patient received hemodialysis yesterday. Due to ongoing concern of his of rhabdomyolysis, we haven't made recommendations for this patient to be seen by neurology. A muscle biopsy is in progress. Neurologist also recommended Decadron at 4 mg every 6 hours IV and this medication was also started on this patient. A general surgery consultation was requested regarding muscle biopsy. I think this is rhabdomyolysis rather than inflammatory myositis. Hemodynamically, the patient is on no pressors. The patient is maintaining his own blood pressure. IV fluid is running in the form of normal saline at the rate of 20 mL an hour. He is not eating. He is on tube feeds through his Dobbhoff and he is receiving Nepro. And her tube feeds is currently at goal at 40 mL an hour of Nepro. No urine output for now. He is profoundly weak and is unable to raise his arms against gravity. He has a very weak cough. His blood pressures under better control and the patient is currently off Cleviprex. Maze in atrial fibrillation for now. His last bout of hemodialysis was yesterday and he is scheduled to have another session of hemodialysis today. He remains on the same antibiotic coverage includes IV Unasyn and is currently off doxycycline also. The patient is seen today 04/08/2020 in follow-up in the intensive care unit. He is profoundly weak. Minimally responsive. He is maintaining O2 saturation in the mid 90s on 2 L/m per nasal cannula. Temperature 99.8 axillary. Blood pressure stable currently. Chest x-ray reveals no significant change compared to previous. No change in bibasilar opacities. We'll cultures reveal no growth. Sputum culture revealed no growth. Blood glucose 137. No other labs available. Remains on antibiotics in the form of Unasyn. Remains on a heparin drip. The patient is a DO NOT RESUSCITATE CODE STATUS. Family is considering hospice. He is currently on a morphine drip at 6 mg per hour. Objective - Vital Signs Vital signs: Vital Signs Temp 99.8 F H 04/08/20 09:00 Pulse 80 04/08/20 09:00 Resp 12 04/08/20 09:00 BP 131/63 04/08/20 09:00 Pulse Ox 95 04/08/20 09:00 Intake & Output 04/07/20 04/08/20 04/08/20 18:59 06:59 18:59 Intake Total 440.697 316 173.550 Output Total 2625 0 0 Balance -2184.303 316 173.550 Weight 104.6 kg 103 kg Intake: IV 280 276 46 0.9 NACL 220 240 40 Pressure bag 60 36 6 Intake, IV Titration 0.697 87.550 Amount Morphine Sulfate (100 mg/ 0.697 87.550 2 ml) 100 mg In Sodium Chloride 0.9% 100 ml @ 1 MG/HR 1.02 mls/hr IV . Q24H [facility] Rx#:[id number] Tube Feeding 160 40 40 Output: Urine 5 0 0 Hemodialysis 2620 Other: Voiding Method Indwelling Catheter Indwelling Catheter ABP, PAP, CO, CI - Last Documented Arterial Blood Pressure 131/53 - Exam GENERAL EXAM: Minimally arousable, extremely weak 70-year-old gentleman, on 2 L nasal cannula. HEAD: Normocephalic. EYES: Normal reaction of pupils, equal size. NOSE: Dobbhoff tube placed in the right nare. Clear with pink turbinates. THROAT: No erythema or exudates. NECK: No masses, no JVD. CHEST: No chest wall deformity. LUNGS: Equal air entry with scattered rhonchi bilaterally. CVS: S1 and S2 normal with no audible murmur, regular rhythm. ABDOMEN: No hepatosplenomegaly, normal bowel sounds, no guarding or rigidity. SPINE: No scoliosis or deformity SKIN: No rashes CENTRAL NERVOUS SYSTEM: No focal deficits, tone is normal in all 4 extremities. EXTREMITIES: There is 1-2+ peripheral edema. No clubbing, no cyanosis. Peripheral pulses are intact. - Labs CBC & Chem 7: 04/07/20 04:00 04/07/20 04:00 Labs: Abnormal Lab Results - Last 24 Hours (Table) 04/08/20 Range/Units 00:03 POC Glucose (mg/dL) 137 H (75-99) mg/dL Microbiology - Last 24 Hours (Table) 04/06/20 01:19 Blood Culture - Preliminary Blood No Growth after 48 hours Assessment and Plan Assessment: 1 Acute hypoxic respiratory failure requiring intubation and mechanical ventilation on 03/24/2020, extubated to BiPAP on 04/02/2020, currently on 2 L high flow nasal cannula, related to acute pneumonia, titers for Francisella are negative. Sputum cultures and blood cultures are negative, Legionella urine antigen was negative. Influenza and COVID 19 PCR were negative. 2 Acute septic shock requiring pressors, resolved. 3 Acute ARDS secondary to pneumonia and sepsis 4 Acute kidney injury suspect acute tubular necrosis from hypotension and septic shock, requiring hemodialysis and ultrafiltration 5 Acute diastolic congestive heart failure. Echocardiogram showed no evidence of LV dysfunction and no evidence of pericardial effusion 6 History of underlying coronary artery disease 7 Hypertension. Currently on clevidipine 12 mg per hour 8 Multiorgan system failure secondary to sepsis and septic shock 9 Ex-smoker 10 New-onset atrial fibrillation, rate is controlled, heparin drip remains 11 Acute ileus, resolved 12 Episode of coffee-ground emesis. Plan: The patient is seen and evaluated by Dr. Sanchez The patient remains minimally responsive and extremely weak The patient is a DO NOT RESUSCITATE/DO NOT INTUBATE CODE STATUS Family is considering hospice/comfort care I, the cosigning physician, performed a history & physical examination of the patient. Lungs sounds hoarse bilateral scattered rhonchi. Maintaining good O2 saturations in the 90s on 2 L/m per nasal cannula. I discussed the assessment and plan of care with my nurse practitioner, Angelique Hair. I attest to the above note as dictated by her.
[2020-04-08] MEDS: hydrALAZINE HCL 50 MG TAB PO SCH (11:01)
[2020-04-08] MEDS: cloNIDine HCL 0.2 MG TAB PO SCH (11:01)
[2020-04-08 11:05] VITALS: PULSE 79; RESP 11
--- NOTE | 2020-04-08 13:15 | P.DS ---
Providers Date of admission: 03/22/20 17:21 Expected date of discharge: 04/08/20 Attending physician: Maggie Jarquin DO Consults: 03/22/20 09:34 Consult Physician Urgent Consulting Provider: [facility] Consult Reason/Comments: chest pain Do you want consulting provider notified?: Yes 03/24/20 07:49 Consult Physician Stat Consulting Provider: Zoie Lamb Consult Reason/Comments: Severe Sepsis with Acute Respiratory Failure, +PC, +non-specific ALEX, CoV- Do you want consulting provider notified?: Yes 03/24/20 08:59 Consult Physician Urgent Consulting Provider: Radha Lopez Consult Reason/Comments: acute respiratory failure with sepsis Do you want consulting provider notified?: Yes 03/25/20 07:45 Consult Physician Routine Consulting Provider: Svetlana Elliott Consult Reason/Comments: arf Do you want consulting provider notified?: Yes 03/25/20 07:50 Consult Physician Urgent Consulting Provider: Svetlana Elliott Consult Reason/Comments: CODY, low urine output, severe sepsis Do you want consulting provider notified?: Yes 03/26/20 08:35 Consult Physician Routine Consulting Provider: Loyd Acosta Consult Reason/Comments: HD catheter Do you want consulting provider notified?: Yes 03/27/20 09:45 Consult Physician Urgent Consulting Provider: Bryan Limon Consult Reason/Comments: distended abd Do you want consulting provider notified?: Yes 04/02/20 16:21 Consult Physician Routine Consulting Provider: Dony Ceja Consult Reason/Comments: altered mentation Do you want consulting provider notified?: Yes Primary care physician: Robbie Paredes Hospital Course: Dispo: After prolonged hospital course, patient indicated that he would prefer hospice/palliative care, and it was outside his goals of care to be on dialysis longterm. Pt will be transitioned to hospice. 70 year old man who presented with chest pain and developed septic shock with ARDS from presumed pneumonia, who recovered to 2L NC, however, he then developed quadriparesis and rhabdomyolysis versus myonecrosis of unclear etiology. I spent 45 minutes preparing this discharge. CODY secondary to ATN/Rhabdomyolysis requiring hemodialysis, hyperphosphatemia - Dialysis again on 04/05, none 04/04 - Nephrology following - On oral bicarb - Nepro/phoslo Rhabdomyolysis - Etiology of rhabdo is unclear - non-traumatic, non-exertional in nature. - DDx: - inflammatory (unlikely, CRP improving) vs - infection or toxin mediated (unlikely, late onset after control of septic shock) vs - drug-effect (possible: eraxis + statin during oliguric renal failure ) superimposed on immobility (probable: critical illness myopathy) - continue to trend BID - can consider obtaining CK-MB component of total CK - dialysis as above Acute hypoxic respiratory failure, Pneumonia, ARDS - + procalcitionin - ID and Pulm recs: - Doxy, Unasyn - Eraxis d/c'd on 04/05 - pulm hygeine - Flu negative, COVID negative, sputum and blood cultures are negative, Lyme IgG and IgM negative, [place] AB negative will need repeat testing in 2 weeks - Speckled ALEX+, 1:80. - C-ANCA and P-ANCA negative, negative anti GBM - off vent 2/ total Vent day 9 - off steroids 2/3 - on TF, swallow study pending Transaminitis, increasing -need to monitor -Repeat liver function daily Toxic metabolic encephalopathy, improving -Suspect secondary to prolonged ICU stay and need for multiple sedative medications -Frequent reorientation -Neurology recommendations: EEG, continue to monitor facial twitching Hypertension -Attempt to wean off Clevidipine -Start Norvasc - follow BP Debility with extreme weakness, suspected ICU induced polymyopathy -PT/OT evaluation pending -CK level elevated to 6000 --> 23599 -Supportive care Permanent A. fib - Cardiology recommendations - On heparin gtt - Not requiring rate or rhythm controlling medications Steroid induced hyperglycemia, resolved and now with episode of hypoglycemia - levemir stopped - continue with sliding scale - follow BS - A1C 6.1, repeat in 6 months Coffee ground emesis. resolved and due to NGT irritation Sepsis, resolved Transaminitis, improving Hypomagnesemia, resolved ileus, resolved Chest pain due to pleurisy, ACS ruled out hyperkalemia Hyponatremia secondary to fluid overload, resolved Chronic: Coronary artery disease GERD Hyperlipidemia Anticipated discharge place: hospice, inpatient Assessment: Gen: awake, alert HEENT: normocephalic, atraumatic, good hearing acuity, dry mucous membranes Resp: coarse breath sounds, equal chest expansion CVS: good distal perfusion x 4, irregular rhythm, regular rate, no appreciable murmurs GI: soft, NTTP, ND, rectal tube : no SPT, no CVAT, eagle catheter is present MSK: Diffuse pitting edema/anasarca, no clubbing Neuro: diffuse weakness, 2+/5 handgrip strength b/l, 1/5 dorsi/plantar flexion left, 2/5 dorsiflexion on the right, 1/5 plantar flexion on the right Patient Condition at Discharge: Critical Plan - Discharge Summary Discharge Rx Participant: No New Discharge Prescriptions: Discontinued Aspirin EC [Ecotrin Low Dose] 81 mg PO DAILY amLODIPine [Norvasc] 10 mg PO DAILY Omeprazole 40 mg PO DAILY Losartan Potassium [Cozaar] 100 mg PO DAILY Atorvastatin Calcium [Lipitor] 40 mg PO DAILY Acetaminophen/Diphenhydramine [Tylenol PM 500-25mg] 1 tab PO HS Follow up Appointment(s)/Referral(s): Robbie Paredes [Primary Care Provider] - 1-2 days Discharge Disposition: [facility]
--- NOTE | 2020-04-09 23:03 | P.PN ---
Progress Note - Text Progress Note Date: 04/08/20 REASON FOR FOLLOWUP: Pneumonia. INTERVAL HISTORY: The patient is afebrile. The patient is slightly awake and alert. He responded to his name however did not answer any questions. He has been tolerating his tube feeds and no worsening diarrhea has been reported by nursing staff. The patient apparently told RN , he doesnot want to continue all this PHYSICAL EXAMINATION: Blood pressure is 110/50, pulse of 80, temperature 98.9. He is 93% 2 L nasal cannula. General description is an elderly male lying in bed in no distress. RESPIRATORY SYSTEM: Unlabored breathing with decreased intensity of breath sounds. No wheeze. HEART: S1, S2. Regular rate and rhythm. ABDOMEN: Soft. No tenderness. LABS: no new labs today DIAGNOSTIC IMPRESSION AND PLAN: Patient with pneumonia, possible aspiration, in this patient who did have extensive workup. So far culture and workup has been negative.Patient is currently covered with Unasyn which can be safely discontinued with plan for hospice which maybe appropriate
== END 2020-04-08 11:45 | disposition hospice, inpatient (51) | DRG 870 ==
LOC: EC 07:06 → 6NMEDSUR 09:44 → OBSVTOIN 17:21 → 4SSUR 18:09 → 3SCARD 03-24 05:29 → 2SICU 03-24 08:30
PROVIDERS: ADMIT Internal Medicine; ATTEND Internal Medicine
PROC: 0BH17EZ Insertion of Endotracheal Airway into Trachea, Via Natural or Artificial Opening (ICD-10-PCS; principal; 2020-03-24)
PROC: 5A1955Z Respiratory Ventilation, Greater than 96 Consecutive Hours (ICD-10-PCS; principal; 2020-03-24)
PROC: 03HY32Z Insertion of Monitoring Device into Upper Artery, Percutaneous Approach (ICD-10-PCS; 2020-03-24)
PROC: 4A133J1 Monitoring of Arterial Pulse, Peripheral, Percutaneous Approach (ICD-10-PCS; 2020-03-24)
PROC: 02H633Z Insertion of Infusion Device into Right Atrium, Percutaneous Approach (ICD-10-PCS; 2020-03-24)
PROC: 4A133B1 Monitoring of Arterial Pressure, Peripheral, Percutaneous Approach (ICD-10-PCS; 2020-03-24)
PROC: 0D9670Z Drainage of Stomach with Drainage Device, Via Natural or Artificial Opening (ICD-10-PCS; 2020-03-24)
PROC: 3E0G76Z Introduction of Nutritional Substance into Upper GI, Via Natural or Artificial Opening (ICD-10-PCS; 2020-03-24)
PROC: 3E033XZ Introduction of Vasopressor into Peripheral Vein, Percutaneous Approach (ICD-10-PCS; 2020-03-24)
PROC: 5A09357 Assistance with Respiratory Ventilation, Less than 24 Consecutive Hours, Continuous Positive Airway Pressure (ICD-10-PCS; 2020-03-24)
PROC: 02H633Z Insertion of Infusion Device into Right Atrium, Percutaneous Approach (ICD-10-PCS; 2020-03-26)
PROC: 02HV33Z Insertion of Infusion Device into Superior Vena Cava, Percutaneous Approach (ICD-10-PCS; 2020-03-26)
PROC: 5A1D70Z Performance of Urinary Filtration, Intermittent, Less than 6 Hours Per Day (ICD-10-PCS; 2020-03-27)
PROC: 06PY33Z Removal of Infusion Device from Lower Vein, Percutaneous Approach (ICD-10-PCS; 2020-03-31)
PROC: 06HY33Z Insertion of Infusion Device into Lower Vein, Percutaneous Approach (ICD-10-PCS; 2020-03-31)
PROC: 5A0935A Assistance with Respiratory Ventilation, Less than 24 Consecutive Hours, High Flow/Velocity Cannula (ICD-10-PCS; 2020-04-05)
DX: A41.50 Gram-negative sepsis, unspecified (principal); J80 Acute respiratory distress syndrome; R65.21 Severe sepsis with septic shock; N17.0 Acute kidney failure with tubular necrosis; K72.00 Acute and subacute hepatic failure without coma; G82.50 Quadriplegia, unspecified; G92 Toxic encephalopathy; I50.31 Acute diastolic (congestive) heart failure; J15.9 Unspecified bacterial pneumonia; J69.0 Pneumonitis due to inhalation of food and vomit; N18.6 End stage renal disease; B37.0 Candidal stomatitis; E87.2 Acidosis; E87.1 Hypo-osmolality and hyponatremia; I13.2 Hypertensive heart and chronic kidney disease with heart failure and with stage 5 chronic kidney disease, or end stage renal disease; I48.21 Permanent atrial fibrillation; J98.11 Atelectasis; K56.7 Ileus, unspecified; M62.82 Rhabdomyolysis; I38 Endocarditis, valve unspecified; K92.0 Hematemesis; E83.39 Other disorders of phosphorus metabolism; Z66 Do not resuscitate; Z51.5 Encounter for palliative care; Z20.822 Contact with and (suspected) exposure to COVID-19; Z87.891 Personal history of nicotine dependence; D64.9 Anemia, unspecified; E87.5 Hyperkalemia; E83.42 Hypomagnesemia; E78.5 Hyperlipidemia, unspecified; E16.2 Hypoglycemia, unspecified; I25.2 Old myocardial infarction; I44.0 Atrioventricular block, first degree; K21.9 Gastro-esophageal reflux disease without esophagitis; N50.89 Other specified disorders of the male genital organs; R76.8 Other specified abnormal immunological findings in serum; T38.0X5A Adverse effect of glucocorticoids and synthetic analogues, initial encounter; Z79.82 Long term (current) use of aspirin; Z79.899 Other long term (current) drug therapy; R74.01 Elevation of levels of liver transaminase levels; R45.1 Restlessness and agitation; E66.9 Obesity, unspecified; I25.10 Atherosclerotic heart disease of native coronary artery without angina pectoris; M54.2 Cervicalgia; Z68.34 Body mass index [BMI] 34.0-34.9, adult; R53.81 Other malaise; R73.9 Hyperglycemia, unspecified; Z80.1 Family history of malignant neoplasm of trachea, bronchus and lung; Z82.49 Family history of ischemic heart disease and other diseases of the circulatory system; Z87.442 Personal history of urinary calculi
CPT/HCPCS: 36415; 36573; 36600; 70450; 71045; 71275; 74018; 80048; 80053; 80061; 81001; 82085; 82140; 82272; 82330; 82550; 82553; 82607; 82728; 82747; 82805; 83036; 83516; 83605; 83615; 83735; 83880; 84100; 84132; 84145; 84443; 84478; 84484; 85025; 85027; 85379; 85610; 85730; 86038; 86039; 86140; 86225; 86255; 86618; 86668; 86704; 86706; 87040; 87070; 87205; 87324; 87340; 87449; 87502; 87635; 90935; 93005; 93306; 93308; 94002; 94003; 94640; 94660; 94760; 95819; 96360; 96361; 99285

== ENCOUNTER 2020-04-07 14:45 | Inpatient (IN) | payer MEDICAID ==
[2020-04-07] MEDS ORDERED: MORPHINE SULFATE 2 MG/ML SYRINGE IV PRN (15:24)
[2020-04-07] MEDS ORDERED: ONDANSETRON 4 MG/2 ML VIAL IVP PRN (15:24)
[2020-04-07] MEDS ORDERED: LORazepam 2 MG/ML INJ IV PRN (15:24)
[2020-04-07] MEDS ORDERED: MORPHINE SULFATE (100 MG/2 ML) 100 MG in SODIUM CHLORIDE 0.9% 100 ML IV SCH (16:00)
--- NOTE | 2020-04-08 12:49 | PN ---
PROGRESS NOTE Yvon Choudhury has been in the ICU for a long time and is currently in the process of becoming comfort care. He remains in atrial fibrillation and heart rate is well controlled. Blood pressure is elevated. Rest of his exam is unchanged. No further intervention and we will follow him on a p.r.n. basis. MMRAMIREZ / MEMO: [id number] /
[2020-04-08] MEDS: MORPHINE SULFATE (100 MG/2 ML) 100 MG in SODIUM CHLORIDE 0.9% 100 ML IV SCH ×2 (13:00→19:56)
--- NOTE | 2020-04-08 13:28 | P.HPIM ---
History of Present Illness H&P Date: 04/08/20 Chief Complaint: Hospice 70 year old man who was hospitalized since 03/22 for septic shock secondary to pneumonia, who initially recovered back to 2L NC, but hospital course complicated by oliguric renal failure requiring iHD as well as by physical conditioning causing quadriparesis with evidence of rhabdomyolysis versus myonecrosis of unclear etiology. Patients initial wishes were to be DNI, but okay with chest compression and shocks upon initial admission, however, he developed respiratory failure and his sister amy was able to convince patient to allow elective intubation for a short term basis to identify reversible causes of debility. Patient was able to recover from septic shock, but then required permanent dialysis due to kidney injury, and further developed rhabdo vs myonecrosis causing quadriparesis. Patient and family agreed that this was outside of patient's wishes to continue treatment in his condition, and therefore, he was transitioned to hospice care. Review of Systems Unable to complete due to patients medical condition. Past Medical History Past Medical History: GERD/Reflux, Hyperlipidemia, Hypertension, Myocardial Infarction (MA), Renal Disease Additional Past Medical History / Comment(s): Mild MA per EKG, lower back pain/2 herniated discs and vertebrae cracked, cervical pain since diving injury, pt has passed renal stones. Last Myocardial Infarction Date:: unkn History of Any Multi-Drug Resistant Organisms: None Reported Past Surgical History: Orthopedic Surgery Additional Past Surgical History / Comment(s): L knee arthroscopy, colonoscopy Past Anesthesia/Blood Transfusion Reactions: No Reported Reaction Past Alcohol Use History: Rare - Past Family History Father Family Medical History: Liver Disease Additional Family Medical History / Comment(s): Father of liver cirrhosis. Mother Family Medical History: Cancer Additional Family Medical History / Comment(s): Mother of lung cancer. She was a smoker. Brother(s) Family Medical History: Coronary Artery Disease (CAD) Additional Family Medical History / Comment(s): Brother had a MA at the age of 46 yrs. Medications and Allergies Allergies Allergy/AdvReac Type Severity Reaction Status Date / Time No Known Allergies Allergy Verified 04/08/20 12:15 Physical Exam Osteopathic Statement: *. No significant issues noted on an osteopathic structural exam other than those noted in the History and Physical/Consult. Vitals: Intake and Output 02/12/1604/08/20 04/08/20 22:59 06:59 14:59 Other: Weight 104.6 kg Gen: asleep, arousable HEENT: normocephalic, atraumatic, dry mucous membranes Resp: coarse breath sounds, equal chest expansion CVS: good distal perfusion x 4, irregular rhythm, regular rate, no appreciable murmurs GI: soft, NTTP, ND, rectal tube : no SPT, no CVAT, eagle catheter is present MSK: Diffuse pitting edema/anasarca, no clubbing Neuro: diffuse weakness, 2+/5 handgrip strength b/l, 1/5 dorsi/plantar flexion left, 2/5 dorsiflexion on the right, 1/5 plantar flexion on the right Assessment and Plan Assessment: CODY secondary to ATN/Rhabdomyolysis requiring hemodialysis, hyperphosphatemia Rhabdomyolysis Acute hypoxic respiratory failure, Pneumonia, ARDS Toxic metabolic encephalopathy, improving Hypertension Debility with extreme weakness, 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 fib Coronary artery disease GERD Hyperlipidemia Plan: - ativan 1mg q2h PRN - morphine gtt 1mg/hr + 2mg IV q15m PRN - zofran 4mg q8h PRN - scopolamine patch
[2020-04-08 17:14] VITALS: BP 135/53; PULSE 82
[2020-04-09] MEDS: MORPHINE SULFATE (100 MG/2 ML) 100 MG in SODIUM CHLORIDE 0.9% 100 ML IV SCH (03:21)
[2020-04-09 03:59] VITALS: RESP 18; TEMP 100.1
--- NOTE | 2020-04-09 11:45 | P.DS ---
Providers Date of admission: 04/08/20 11:51 Expected date of discharge: 04/09/20 Attending physician: Maggie Jarquin DO Primary care physician: Robbie Paredes Hospital Course: 70 year old man who was hospitalized since 03/22 for septic shock secondary to pneumonia, who initially recovered back to 2L NC, but hospital course complicated by oliguric renal failure requiring iHD as well as by physical conditioning causing quadriparesis with evidence of rhabdomyolysis versus myonecrosis of unclear etiology. Patients initial wishes were to be DNI, but okay with chest compression and shocks upon initial admission, however, he developed respiratory failure and his sister amy was able to convince patient to allow elective intubation for a short term basis to identify reversible causes of debility. Patient was able to recover from septic shock, but then required permanent dialysis due to kidney injury, and further developed rhabdo vs myonecrosis causing quadriparesis. Patient and family agreed that this was outside of patient's wishes to continue treatment in his condition, and therefore, he was transitioned to hospice care. Patient peacefully on 04/09 at 0732. Case was sent for autopsy, pending results.
[2020-04-10] MEDS ORDERED: SCOPOLAMINE 1.5MG/72HR PATCH TRANSDERM SCH (12:00)
== END 2020-04-09 11:47 | disposition expired | DRG 951 ==
LOC: 2SICU 04-08 11:51
PROVIDERS: ADMIT Internal Medicine; ATTEND Internal Medicine
DX: Z51.5 Encounter for palliative care (principal); A41.9 Sepsis, unspecified organism; G82.50 Quadriplegia, unspecified; G92 Toxic encephalopathy; J18.9 Pneumonia, unspecified organism; J80 Acute respiratory distress syndrome; N17.0 Acute kidney failure with tubular necrosis; R65.21 Severe sepsis with septic shock; I48.21 Permanent atrial fibrillation; M62.82 Rhabdomyolysis; E78.5 Hyperlipidemia, unspecified; E83.39 Other disorders of phosphorus metabolism; I10 Essential (primary) hypertension; I25.10 Atherosclerotic heart disease of native coronary artery without angina pectoris; I25.2 Old myocardial infarction; K21.9 Gastro-esophageal reflux disease without esophagitis; Z80.1 Family history of malignant neoplasm of trachea, bronchus and lung; Z82.49 Family history of ischemic heart disease and other diseases of the circulatory system; Z87.442 Personal history of urinary calculi; R53.81 Other malaise; Z66 Do not resuscitate